=== PATIENT | female | born 1955 | race Two or more races ===

== ENCOUNTER → 2017-01-17 | Outpatient (CLI) | payer BC ==
[~2017-01-17] MED LIST: ASPI-498 PO; GLIP-115 PO; INSUINJ SC; LISI2.5T47 PO; LOVA10TA54 PO; METF-370 PO
[2017-01-17 08:04] LABS: Basophils # (auto) 0.1 uL; Basophils % (auto) 1.3 % (0.0-2.0); CONDITION Y; DEFINITIVE SEE PRINTOUT; Eosinophils # (auto) 0.3 uL; Eosinophils % (auto) 3.9 % (0.0-7.0); Hematocrit 29.3 % (36.0-46.0); Hemoglobin 9.2 g/dL (12.2-16.2); Lymphocytes # (auto) 1.9 uL; Lymphocytes % (auto) 28.3 % (10.0-50.0); Mean Corpuscular Hemoglobin 22.3 pg (28.0-32.0); Mean Corpuscular Hgb Conc. 31.5 g/dL (32.0-36.0); Mean Corpuscular Volume 70.7 fL (80.0-100.0); Mean Platelet Volume 6.8 fL (7.4-10.4); Monocytes # (auto) 0.5 uL; Monocytes % (auto) 7.4 % (0.0-12.0); Neutrophils % (auto) 59.1 % (37.0-80.0); Platelet Count (auto) 652 10^3/uL (140-450); Red Cell Distribution Width 17.7 % (11.6-16.0); White Blood Cell 6.8 10^3/uL (4.4-10.8)
[2017-01-17 08:45] LABS: Urine Bilirubin Negative (Negative); Urine Blood Negative /uL (Negative); Urine Color Yellow (Yellow); Urine Glucose 4+ mg/dL (Normal); Urine Ketone Negative (Negative); Urine Mucus FEW (None Seen); Urine Nitrite Negative (Negative); Urine RBC 1 /hpf (0 - 4); Urine Squamous Epithelial Cell FEW /hpf (<5); Urine Urobilinogen Normal (Negative)
[2017-01-17 08:58] LABS: INR 0.93 (0.9-1.15); Prothrombin Time 10.1 sec (9.37-12.3)
[2017-01-17 09:28] LABS: Albumin 3.4 g/dL (3.4-5.0); BUN/Creatinine Ratio 18.8; Bilirubin, Total 0.4 mg/dL (0.2-1.0); Total Protein 7.5 g/dL (6.4-8.2)
== END | disposition home or self-care (01) ==
LOC: LAB 07:40
PROVIDERS: ATTEND Internal Medicine
DX: E11.319 Type 2 diabetes mellitus with unspecified diabetic retinopathy without macular edema (principal); R04.0 Epistaxis; I11.0 Hypertensive heart disease with heart failure; I50.9 Heart failure, unspecified
CPT/HCPCS: 36415; 80053; 80061; 81001; 82607; 83036; 84439; 84443; 85025; 85610; 85652

== ENCOUNTER → 2017-02-08 | Outpatient (CLI) | payer BC ==
[2017-02-08 16:10] LABS: Basophils # (auto) 0 uL; Basophils % (auto) 0.5 % (0.0-2.0); CONDITION Y; DEFINITIVE SEE PRINTOUT; Eosinophils # (auto) 0.3 uL; Eosinophils % (auto) 3.2 % (0.0-7.0); Hemoglobin 9.4 g/dL (12.2-16.2); Lymphocytes # (auto) 2.6 uL; Lymphocytes % (auto) 29.3 % (10.0-50.0); Mean Corpuscular Hemoglobin 20.7 pg (28.0-32.0); Mean Corpuscular Hgb Conc. 31.2 g/dL (32.0-36.0); Mean Corpuscular Volume 66.5 fL (80.0-100.0); Mean Platelet Volume 7.1 fL (6.9-10.8); Monocytes # (auto) 0.7 uL; Monocytes % (auto) 7.4 % (0.0-12.0); Neutrophils # (auto) 5.3 uL; Neutrophils % (auto) 59.6 % (37.0-80.0); Platelet Count (auto) 566 10^3/uL (140-450); Red Cell Distribution Width 18.8 % (11.8-14.3)
[2017-02-08 16:21] LABS: Anisocytosis Moderate; Hypochromia Marked; Microcytosis Marked; Platelet Estimate Increased
[2017-02-08 16:30] LABS: Glucose 205 mg/dL (74-106)
== END | disposition home or self-care (01) ==
LOC: LAB 15:21
PROVIDERS: ATTEND Internal Medicine
DX: D64.9 Anemia, unspecified (principal); I25.10 Atherosclerotic heart disease of native coronary artery without angina pectoris; E11.9 Type 2 diabetes mellitus without complications; I10 Essential (primary) hypertension
CPT/HCPCS: 36415; 82607; 82947; 83540; 83615; 85025

== ENCOUNTER → 2017-04-23 | Outpatient (CLI) | payer BC | END | disposition home or self-care (01) | LOC: XYW 09:56 | PROVIDERS: ATTEND Internal Medicine | DX: I44.7 Left bundle-branch block, unspecified (principal) ==

== ENCOUNTER → 2017-04-30 | Outpatient (CLI) | payer BC ==
[~2017-04-30] VITALS: Ht 165.1 cm; Wt 85.7 kg
[~2017-04-30] MED LIST changes: +ADENOSINE 72 MG in GIVE UN-DILUTED 0 ML IV ONE
[2017-04-30 10:12] VITALS: BP 165/68
== END | disposition home or self-care (01) ==
LOC: XY 08:06
PROVIDERS: ATTEND Internal Medicine
DX: I44.7 Left bundle-branch block, unspecified (principal)
CPT/HCPCS: 78452; 93017; A9500; J0153

== ENCOUNTER 2019-09-16 15:54 | Inpatient (IN) | payer MEDICARE, MEDICAID ==
[~2019-09-16] VITALS: Ht 167.6 cm; Wt 88.0 kg
[~2019-09-16 15:54] MED LIST changes: -ADENOSINE 72 MG in GIVE UN-DILUTED 0 ML IV ONE; -GLIP-115 PO; +GLIP5TAB12 PO
[2019-09-16 16:58] LABS: Urine WBC None Seen /hpf (0 - 5)
[2019-09-16 17:03] LABS: Basophils # (auto) 0.1 10 ^3/uL (0-0.2); Basophils % (auto) 1.2 % (0.0-2.0); Eosinophils # (auto) 0.2 10 ^3/uL (0-0.8); Eosinophils % (auto) 2.1 % (0.0-7.0); Hematocrit 32.7 % (36.0-46.0); Hemoglobin 10.3 g/dL (12.2-16.2); Lymphocytes % (auto) 18.3 % (10.0-50.0); Mean Corpuscular Hemoglobin 22.2 pg (28.0-32.0); Mean Corpuscular Hgb Conc. 31.4 g/dL (32.0-36.0); Mean Corpuscular Volume 70.7 fL (80.0-100.0); Monocytes # (auto) 0.8 10 ^3/uL (0-1.3); Monocytes % (auto) 7.3 % (0.0-12.0); Neutrophils # (auto) 7.8 10 ^3/uL (1.6-8.6); Neutrophils % (auto) 71.1 % (37.0-80.0); Platelet Count (auto) 590 10^3/uL (140-450); Red Blood Cells 4.63 10^6/uL (4.0-5.20); Red Cell Distribution Width 17.7 % (11.8-14.3)
[2019-09-16 17:07] LABS: Urine Bacteria NONE SEEN /hpf (None Seen); Urine Blood 1+ /uL (Negative); Urine Specific Gravity 1.017 (1.001-1.035)
[2019-09-16 17:25] LABS: Albumin 2.8 g/dL (3.4-5.0); Anion Gap 9 (5-15); Blood Urea Nitrogen 12 mg/dL (7-18); Calcium 8.6 mg/dL (8.5-10.1); Carbon Dioxide 24 mmol/L (21-32); Chloride 97 mmol/L (98-107); Glucose 281 mg/dL (74-106); Potassium 4.5 mmol/L (3.5-5.1); Sodium 130 mmol/L (136-145)
[2019-09-16 17:30] LABS: Alanine Aminotransferase 20 U/L (13-56); Alkaline Phosphatase 127 U/L (45-117); Aspartate Aminotransferase 14 U/L (15-37); BUN/Creatinine Ratio 16.7; Bilirubin, Total 0.5 mg/dL (0.2-1.0); GFR African American 105 mL/min; GFR Non-African American 86 mL/min; Total Protein 7.3 g/dL (6.4-8.2)
[2019-09-16] MEDS ORDERED: MORPHINE SULF INJ 2 MG/ML SYRINGE 1ML IV PRN (18:45)
[2019-09-16] MEDS ORDERED: NITROGLYCERIN 0.4 MG SL TAB SL PRN ×2 (18:45)
[2019-09-16] MEDS ORDERED: HYDROcodone-ACET 5/325MG TAB PO PRN (18:45)
[2019-09-16] MEDS ORDERED: MORPHINE SULFATE 4 MG/ML SYR/VIAL IV PRN (18:45)
[2019-09-16] MEDS ORDERED: FUROSEMIDE 40 MG/4 ML VIAL IV ONE (18:45)
[2019-09-16] MEDS ORDERED: LORazepam 0.5 MG TAB PO PRN (18:45)
[2019-09-16] MEDS ORDERED: ONDANSETRON HCL 4 MG/2 ML VIAL IV PRN (18:45)
[2019-09-16] MEDS ORDERED: DEXTROSE (50%) 50ML SYRG IV PRN (18:45)
[2019-09-16] MEDS ORDERED: FUROSEMIDE 40 MG TAB PO SCH (19:15)
[2019-09-16] MEDS ORDERED: FUROSEMIDE INJECTION 10 ML ONE (21:04)
[2019-09-16] MEDS ORDERED: ATORVASTATIN 20 MG TAB PO SCH (22:00)
[2019-09-16 22:45] VITALS: BP 138/94
[2019-09-16] MEDS: CARVEDILOL 3.125 MG TAB PO SCH (23:08)
[2019-09-16] MEDS: ACCU-CHEK COMFORT CURVE STRIP VI SCH (23:09)
[2019-09-16] MEDS: InsuLIN REG 1unit/0.01ml Soln (100units/ml) SC SCH (23:21)
--- NOTE | 2019-09-16 23:30 | NUR ---
Telemetry admit from ER ALISTAIR CARDOZA admitted to Telemetry unit after SBAR received. Patient oriented to Catherine Loaiza RN primary RN, unit, room, bed, and unit policies regarding patient care and visiting hours. Patient now on continuous telemetry monitoring, tele box # 81 and telemetry reading on arrival to unit is SR. Patient weighed by bedscale and encouraged to call if they need something. All questions and concerns addressed, patient verbalized understanding, will continue to monitor Note: []
[2019-09-17 00:12] VITALS: BP 138/94
[2019-09-17 05:00] VITALS: BP 128/77
[2019-09-17] MEDS: FUROSEMIDE 100 MG/10ML VIAL IV SCH ×2 (05:45→17:50)
[2019-09-17] MEDS: ACCU-CHEK COMFORT CURVE STRIP VI SCH ×4 (05:45→21:55)
[2019-09-17] MEDS ORDERED: FUROSEMIDE 40 MG TAB PO SCH (06:00)
[2019-09-17 06:07] LABS: Basophils # (auto) 0.1 10 ^3/uL (0-0.2); Basophils % (auto) 0.9 % (0.0-2.0); Eosinophils # (auto) 0.2 10 ^3/uL (0-0.8); White Blood Cell 8.1 10^3/uL (4.4-10.8)
[2019-09-17 06:09] LABS: Eosinophils % (auto) 2.8 % (0.0-7.0); Hematocrit 27.9 % (36.0-46.0); Hemoglobin 8.8 g/dL (12.2-16.2); Lymphocytes # (auto) 1.6 10 ^3/uL (0.4-5.4); Lymphocytes % (auto) 19.6 % (10.0-50.0); Mean Corpuscular Hemoglobin 22.3 pg (28.0-32.0); Mean Corpuscular Hgb Conc. 31.7 g/dL (32.0-36.0); Mean Corpuscular Volume 70.2 fL (80.0-100.0); Monocytes # (auto) 0.6 10 ^3/uL (0-1.3); Neutrophils # (auto) 5.7 10 ^3/uL (1.6-8.6); Neutrophils % (auto) 69.7 % (37.0-80.0); Platelet Count (auto) 503 10^3/uL (140-450); Red Blood Cells 3.97 10^6/uL (4.0-5.20); Red Cell Distribution Width 17.8 % (11.8-14.3)
[2019-09-17] MEDS: InsuLIN REG 1unit/0.01ml Soln (100units/ml) SC SCH ×4 (06:27→22:00)
[2019-09-17 06:28] LABS: Albumin 2.3 g/dL (3.4-5.0); Calcium 7.9 mg/dL (8.5-10.1); Magnesium 1.9 mg/dL (1.6-2.6); Potassium 3.7 mmol/L (3.5-5.1)
[2019-09-17 06:29] LABS: % Iron Saturation 4.1 % (15-50)
[2019-09-17 06:34] LABS: BUN/Creatinine Ratio 22.2; Bilirubin, Total 0.8 mg/dL (0.2-1.0); Phosphorus 3.5 mg/dL (2.5-4.90); Total Protein 6.1 g/dL (6.4-8.2)
[2019-09-17] MEDS: CARVEDILOL 3.125 MG TAB PO SCH (08:26)
[2019-09-17] MEDS: DOCUSATE SOD 100 MG CAP PO SCH (08:26)
[2019-09-17] MEDS: ASPirin 81 mg TAB PO SCH (08:27)
[2019-09-17 09:00] VITALS: BP 143/66
--- NOTE | 2019-09-17 09:24 | NUR ---
Markus is alert and oriented times 3. Markus lives in her own home in [place]. Pt has a sister who is available to assist her if she required help. Pt also has a brother who lives with her. He leaves for work in the temperer and does not come back home until 10.00pm. However, she is not responsible for him. Markus is listed as not having any insurance. However, Pt has Medicare A. Recently she applied for [employer] B, However, pt states it will not be in effect until December. Shrub [employer]er spoke with Surjit and he will apply for [employer] for her. Advised pt that additional information regarding D/C Planning would be provided prior to her discharge. Will follow up with Toni regarding the insurance status. Addendum: 09/17/19 at [facility] by GUS VAZQUEZ Amended: Links added.
[2019-09-17] MEDS ORDERED: LISINOPRIL 20 MG TAB PO SCH (10:00)
[2019-09-17] MEDS ORDERED: OPTISON 3ml Vial for INJ IV ONE (11:44)
--- NOTE | 2019-09-17 11:55 | NUR ---
Doctor Niyah jensen.
[2019-09-17] MEDS ORDERED: SODIUM FERR GLUC 62.5MG/5ML 125 MG in SODIUM CHL 0.9% 100 ML IV SCH (12:00)
[2019-09-17] MEDS: IRON SUCROSE COMPLEX 200 MG in SODIUM CHL 0.9% 100 ML IV SCH (12:02)
--- NOTE | 2019-09-17 12:05 | NUR ---
Doctor Gaxiola at bedside.
[2019-09-17] MEDS ORDERED: MULTTAB61 PO (12:23)
[2019-09-17] MEDS ORDERED: POLYETHYLENE GLYCOL 17 GM PWDR PO ONE (12:45)
[2019-09-17 13:00] VITALS: BP 138/67
[2019-09-17] MEDS: PANTOPRAZOLE 40 MG TAB PO SCH ×2 (13:45→22:37)
--- NOTE | 2019-09-17 13:59 | NUR ---
Patient C/O of mild headache requesting Tylenol for pain. Informed Doctor Khalida of request, new orders received, see emr for orders.
[2019-09-17] MEDS ORDERED: ACETAMINOPHEN 325 MG TAB PO PRN (14:00)
[2019-09-17 16:50] VITALS: BP 140/80
[2019-09-17 22:00] VITALS: BP 140/78
[2019-09-17] MEDS: ATORVASTATIN 20 MG TAB PO SCH (22:26)
[2019-09-17] MEDS: CARVEDILOL 12.5 MG TAB PO SCH (22:27)
[2019-09-17] MEDS: INSULIN LANTUS (GLARGINE) 1 /0.01ml (100units/ml) SC SCH (22:28)
--- NOTE | 2019-09-18 03:30 | NUR ---
ASSUMED CARE OF PT SLEEPING.
--- NOTE | 2019-09-18 03:30 | NUR ---
Assumed care. Sleeping.
--- NOTE | 2019-09-18 03:48 | NUR ---
CARE ENDORSED TO BRIGIOD Shelby
[2019-09-18 05:00] VITALS: BP 109/58
[2019-09-18] MEDS: FUROSEMIDE 100 MG/10ML VIAL IV SCH (06:15)
[2019-09-18] MEDS: InsuLIN REG 1unit/0.01ml Soln (100units/ml) SC SCH ×4 (06:43→22:13)
[2019-09-18] MEDS: ACCU-CHEK COMFORT CURVE STRIP VI SCH ×4 (07:00→22:09)
[2019-09-18 07:16] LABS: Basophils # (auto) 0.1 10 ^3/uL (0-0.2); Eosinophils # (auto) 0.3 10 ^3/uL (0-0.8)
[2019-09-18] MEDS: INSULIN LANTUS (GLARGINE) 1 /0.01ml (100units/ml) SC SCH ×2 (07:16→22:12)
[2019-09-18 07:19] LABS: Basophils % (auto) 1.1 % (0.0-2.0); Eosinophils % (auto) 4.7 % (0.0-7.0); Hematocrit 28.3 % (36.0-46.0); Lymphocytes # (auto) 1.6 10 ^3/uL (0.4-5.4); Mean Corpuscular Hemoglobin 22.2 pg (28.0-32.0); Mean Corpuscular Hgb Conc. 31.7 g/dL (32.0-36.0); Monocytes # (auto) 0.5 10 ^3/uL (0-1.3); Monocytes % (auto) 6.6 % (0.0-12.0); Neutrophils # (auto) 4.6 10 ^3/uL (1.6-8.6); Neutrophils % (auto) 64.6 % (37.0-80.0); Nucleated Red Blood Cells % 0.2 %; Platelet Count (auto) 507 10^3/uL (140-450); Red Blood Cells 4.05 10^6/uL (4.0-5.20); Red Cell Distribution Width 17.7 % (11.8-14.3); White Blood Cell 7.1 10^3/uL (4.4-10.8)
[2019-09-18 07:35] LABS: Potassium 4.4 mmol/L (3.5-5.1)
[2019-09-18 07:40] LABS: BUN/Creatinine Ratio 23.5; Calcium 8.3 mg/dL (8.5-10.1); Magnesium 2.2 mg/dL (1.6-2.6)
[2019-09-18 09:00] VITALS: BP 132/66
[2019-09-18] MEDS: ENOXAPARIN SOD 40 MG/0.4 ML SYRINGE SC SCH (10:00)
[2019-09-18] MEDS: CARVEDILOL 12.5 MG TAB PO SCH (10:30)
[2019-09-18] MEDS: PANTOPRAZOLE 40 MG TAB PO SCH (10:30)
[2019-09-18] MEDS: DOCUSATE SOD 100 MG CAP PO SCH (10:30)
[2019-09-18] MEDS: LISINOPRIL 10 MG TAB PO SCH (10:30)
[2019-09-18] MEDS: POLYETHYLENE GLYCOL 17 GM PWDR PO SCH (10:30)
[2019-09-18] MEDS: ASPirin 81 mg TAB PO SCH ×2 (10:30→12:44)
[2019-09-18 13:00] VITALS: BP 111/62
[2019-09-18] MEDS: IRON SUCROSE COMPLEX 200 MG in SODIUM CHL 0.9% 100 ML IV SCH (13:49)
--- NOTE | 2019-09-18 14:00 | NUR ---
DR. POPPY ESTEBAN. MAKES KNOWN PLANS FOR [facility] ON SATURDAY. PT IS AGREEABLE.
--- NOTE | 2019-09-18 15:00 | NUR ---
ASSUMED CARE ASSUMED CARE OF PATIENT AFTER RECEIVING REPORT. PATIENT ORIENTED TO THIS RN AND UPDATED ON POC. WILL CONTINUE TO MONITOR.
[2019-09-18 17:06] VITALS: BP 129/77
--- NOTE | 2019-09-18 19:15 | NUR ---
Opening Shift Note Assumed care of patient, awake and alert. No S/S of distress/SOB or pain. Instructed on POC and to call for assist PRN, will continue to monitor for changes Q1hr and PRN. PATIENT RESTING IN BED, BED IN LOWEST POSITION, SIDE RALES UP X2, CALL LIGHT AND PERSONAL ITEMS WITHIN REACH.
[2019-09-18 20:00] VITALS: BP 130/73
--- NOTE | 2019-09-18 21:27 | NUR ---
IV insertion IV access obtained, via clean sterile technique by inserting 20 gauge catheter at LEFT WRIST after 1 attempt. IV secured properly. No trauma to site. Patient tolerated well. IV removal IV DC'd with clean sterile technique, catheter fully intact. Pressure dressing applied to site. Patient tolerated well. NOTE: OLD IV PAINFUL AND PT DID NOT WANT IT FLUSHED.
[2019-09-18 22:00] VITALS: BP 130/73
[2019-09-18] MEDS: ATORVASTATIN 20 MG TAB PO SCH (22:08)
[2019-09-19 04:54] VITALS: BP 122/71
[2019-09-19 06:35] LABS: Potassium 3.8 mmol/L (3.5-5.1)
[2019-09-19 06:42] LABS: BUN/Creatinine Ratio 26.5; Calcium 8.4 mg/dL (8.5-10.1)
[2019-09-19] MEDS: FUROSEMIDE 100 MG/10ML VIAL IV SCH ×2 (06:43→17:04)
[2019-09-19] MEDS: InsuLIN REG 1unit/0.01ml Soln (100units/ml) SC SCH ×4 (06:43→21:59)
[2019-09-19] MEDS: ACCU-CHEK COMFORT CURVE STRIP VI SCH ×4 (06:44→21:56)
[2019-09-19] MEDS: INSULIN LANTUS (GLARGINE) 1 /0.01ml (100units/ml) SC SCH ×2 (06:47→21:58)
--- NOTE | 2019-09-19 07:20 | NUR ---
Opening Shift Note: Assumed care of patient, awake and alert. No S/S of distress/SOB or pain. Bed in lowest locked position, side rails up x 2, call light within reach. Patient instructed on POC and to call for assist PRN, will continue to monitor for changes Q1hr and PRN.
[2019-09-19 08:40] VITALS: BP 128/70
[2019-09-19] MEDS: ENOXAPARIN SOD 40 MG/0.4 ML SYRINGE SC SCH (09:50)
[2019-09-19] MEDS: IRON SUCROSE COMPLEX 200 MG in SODIUM CHL 0.9% 100 ML IV SCH (11:46)
[2019-09-19 12:40] VITALS: BP 137/79
[2019-09-19 16:43] VITALS: BP 134/68
--- NOTE | 2019-09-19 19:08 | NUR ---
CLOSING NOTE: Patient resting in bed. No S/S of SOB, pain, or distress at this time. Care endorsed to NOC RN.
--- NOTE | 2019-09-19 19:50 | NUR ---
Opening Shift Note Assumed care of patient, awake and alert. No S/S of distress/SOB or pain. Instructed on POC and to call for assist PRN, will continue to monitor for changes Q1hr and PRN. PATIENT CLAM SITTING UP IN BED, FITNESS COACH AT BEDSIDE, BED IN LOWEST POSITION, SIDE RALES UP X2, CALL LIGHT AND CELLPHONE ON TRAY TABLE IN REACH.
[2019-09-19 20:00] VITALS: BP 137/71
[2019-09-19 21:00] VITALS: BP 137/71
[2019-09-19] MEDS: PANTOPRAZOLE 40 MG TAB PO SCH (21:56)
[2019-09-19] MEDS: CARVEDILOL 12.5 MG TAB PO SCH (21:56)
[2019-09-19] MEDS: ATORVASTATIN 20 MG TAB PO SCH (21:56)
[2019-09-20 05:00] VITALS: BP 104/66
[2019-09-20] MEDS: FUROSEMIDE 100 MG/10ML VIAL IV SCH ×2 (06:31→17:26)
[2019-09-20] MEDS: ACCU-CHEK COMFORT CURVE STRIP VI SCH ×4 (06:31→22:06)
[2019-09-20] MEDS: InsuLIN REG 1unit/0.01ml Soln (100units/ml) SC SCH ×4 (06:32→22:15)
[2019-09-20] MEDS: INSULIN LANTUS (GLARGINE) 1 /0.01ml (100units/ml) SC SCH ×2 (06:32→22:00)
[2019-09-20 08:47] VITALS: BP 124/71
[2019-09-20] MEDS: POLYETHYLENE GLYCOL 17 GM PWDR PO SCH (10:00)
[2019-09-20] MEDS: ENOXAPARIN SOD 40 MG/0.4 ML SYRINGE SC SCH (10:00)
[2019-09-20] MEDS: ASPirin 81 mg TAB PO SCH (10:00)
[2019-09-20] MEDS: CARVEDILOL 12.5 MG TAB PO SCH ×2 (10:04→22:02)
[2019-09-20] MEDS: PANTOPRAZOLE 40 MG TAB PO SCH ×2 (10:04→22:02)
[2019-09-20] MEDS: LISINOPRIL 10 MG TAB PO SCH (10:05)
[2019-09-20] MEDS: DOCUSATE SOD 100 MG CAP PO SCH (10:08)
[2019-09-20] MEDS: IRON SUCROSE COMPLEX 200 MG in SODIUM CHL 0.9% 100 ML IV SCH (11:41)
[2019-09-20 13:00] VITALS: BP 120/64
[2019-09-20 16:57] VITALS: BP 125/64
--- NOTE | 2019-09-20 18:33 | NUR ---
IV insertion: IV access obtained, via clean sterile technique by inserting 20 gauge catheter at right forearm after 1 attempt. IV secured properly. No trauma to site. Patient tolerated well. IV removal: left wrist IV DC'd with clean sterile technique, catheter fully intact. Pressure dressing applied to site. Patient tolerated well.
--- NOTE | 2019-09-20 18:51 | NUR ---
Closing note: Patient resting in bed. No S/S of pain, distress or SOB at this time. Care endorsed to NOC RN.
--- NOTE | 2019-09-20 19:10 | NUR ---
Received report from the Day Shift BARBIE Montano. Pt. in bed resting and sleeping. Initial assessment done.
--- NOTE | 2019-09-20 19:47 | NUR ---
Pt. SR @ 68 with BBB @ Tele Box # 81. Pt. denies chest pain and denies any chest discomfort when assessed. Pt. calm and aware of the possible procedure to be done tomorrow, the Left Heart Cath or Angiogram. Need consent to be signed.
--- NOTE | 2019-09-20 20:00 | NUR ---
Pt. in bed resting,calm and quiet. Pt. easily arousable by name, alert, awake, oriented x 4, Mohawk speaking. Pt. in Room Air, nos/s of sob or dyspnea. Breathing regular/even and unlabored. Lungs are clear bilaterally. Pt. denies chest pain or any pain @ this time. Tele # 81 SR with BBB @ the 60's. Abdomen soft, rounded and non-tender. IV access @ the RFA G # 20 which was inserted 09/20/19. Last BM 09/19/19. Pt. adlib, can turn self, independent and ambulatory with BRP with min. assist. Generally skin intact. Pt. for Left heart Cath tomorrow 09/21/19Saturday. Pt. needs consent to be signed for the heart cath tomorrow. NPO post MN. Pt. returned to sleep, siderails up x 2 @ the head of the bed, bed locked in low position and call-light within pt.'s reach.
[2019-09-20 21:00] VITALS: BP 142/66
[2019-09-20] MEDS: ATORVASTATIN 20 MG TAB PO SCH (22:02)
--- NOTE | 2019-09-20 22:02 | NUR ---
Meds. as scheduled given. Pt. made aware of the use and indications of the meds. as scheduled. Pt. verbalized understanding.
--- NOTE | 2019-09-20 22:05 | NUR ---
Accucheck taken and result of BS = 161 @ 2205 Pm.
--- NOTE | 2019-09-20 22:15 | NUR ---
Pt. received 3 units of Regular Human insulin SQ @ [facility] for BS = 161. Pt. made aware of the BS result and verbalized understanding of the Insulin coverage. Pt. refused Lantus due to NPO post MN for Angiogram or Left Heart Cath tomorrow 09/21/2019.
--- NOTE | 2019-09-21 00:30 | NUR ---
Pt. sleeping and calm @ this time. Pt. already on NPO as was instructed to her post MN.
--- NOTE | 2019-09-21 02:00 | NUR ---
Pt. is sleeping undisturbed. Kept on NPO. Siderails up x 2 and bed locked in low position. Call-light @the bedside.
[2019-09-21 05:00] VITALS: BP 107/67
[2019-09-21 05:42] LABS: Basophils # (auto) 0.1 10 ^3/uL (0-0.2); Basophils % (auto) 0.9 % (0.0-2.0); Eosinophils # (auto) 0.3 10 ^3/uL (0-0.8); Eosinophils % (auto) 3.4 % (0.0-7.0); Hematocrit 29.9 % (36.0-46.0); Hemoglobin 9.5 g/dL (12.2-16.2); Lymphocytes # (auto) 1.6 10 ^3/uL (0.4-5.4); Lymphocytes % (auto) 17.3 % (10.0-50.0); Mean Corpuscular Hemoglobin 22.9 pg (28.0-32.0); Mean Corpuscular Hgb Conc. 31.8 g/dL (32.0-36.0); Mean Corpuscular Volume 72.1 fL (80.0-100.0); Monocytes # (auto) 0.7 10 ^3/uL (0-1.3); Monocytes % (auto) 7.4 % (0.0-12.0); Neutrophils # (auto) 6.6 10 ^3/uL (1.6-8.6); Nucleated Red Blood Cells % 0.1 %; Platelet Count (auto) 536 10^3/uL (140-450); Red Blood Cells 4.15 10^6/uL (4.0-5.20); Red Cell Distribution Width 17.8 % (11.8-14.3); White Blood Cell 9.2 10^3/uL (4.4-10.8)
[2019-09-21] MEDS: FUROSEMIDE 100 MG/10ML VIAL IV SCH ×2 (05:45→18:11)
[2019-09-21 05:56] LABS: % Iron Saturation 34.4 % (15-50)
[2019-09-21 05:59] LABS: Potassium 4.3 mmol/L (3.5-5.1)
[2019-09-21 06:04] LABS: Calcium 8.8 mg/dL (8.5-10.1); INR 1.08 (0.9-1.15); Magnesium 2.2 mg/dL (1.6-2.6)
[2019-09-21] MEDS: ACCU-CHEK COMFORT CURVE STRIP VI SCH ×4 (06:09→22:27)
[2019-09-21] MEDS: InsuLIN REG 1unit/0.01ml Soln (100units/ml) SC SCH ×4 (06:09→22:29)
--- NOTE | 2019-09-21 06:09 | NUR ---
Accucheck taken with result of BS = 148 . Pt. is on NPO for Left Heart Cath. or Angiogram today Saturday09/21/2019. This insulin is not given to the pt. due to NPO for procedure today.
[2019-09-21] MEDS: INSULIN LANTUS (GLARGINE) 1 /0.01ml (100units/ml) SC SCH ×2 (06:13→22:28)
--- NOTE | 2019-09-21 07:35 | NUR ---
Opening Shift Note: Received report from NOC RN Assumed care of patient, awake and alert. No S/S of distress/SOB or pain. Bed in lowest locked position, side rails up x 2, call light within reach. Patient instructed on POC and to call for assist PRN, will continue to monitor for changes Q1hr and PRN.
--- NOTE | 2019-09-21 07:46 | NUR ---
Called Client Relationship Consultant regarding patient status. Patient not on schedule at this time. No orders for C.
[2019-09-21 09:00] VITALS: BP 123/66
[2019-09-21] MEDS ORDERED: ADENOSINE 73 MG in GIVE UN-DILUTED 0 ML IV STA (09:24)
--- NOTE | 2019-09-21 09:25 | NUR ---
Patient off unit for stress test.
[2019-09-21] MEDS: ASPirin 81 mg TAB PO SCH (09:55)
[2019-09-21] MEDS: ENOXAPARIN SOD 40 MG/0.4 ML SYRINGE SC SCH (09:55)
[2019-09-21] MEDS: DOCUSATE SOD 100 MG CAP PO SCH (10:00)
[2019-09-21] MEDS: POLYETHYLENE GLYCOL 17 GM PWDR PO SCH (10:00)
[2019-09-21] MEDS: CARVEDILOL 12.5 MG TAB PO SCH ×2 (10:00→22:26)
[2019-09-21] MEDS: PANTOPRAZOLE 40 MG TAB PO SCH ×2 (10:00→22:27)
[2019-09-21] MEDS: LISINOPRIL 10 MG TAB PO SCH (10:00)
[2019-09-21 10:08] VITALS: BP 140/76
--- NOTE | 2019-09-21 11:40 | NUR ---
Patient back to unit.
[2019-09-21] MEDS: IRON SUCROSE COMPLEX 200 MG in SODIUM CHL 0.9% 100 ML IV SCH (12:06)
[2019-09-21 13:00] VITALS: BP 135/80
[2019-09-21] MEDS ORDERED: CANA300T OR (14:48)
[2019-09-21] MEDS ORDERED: METF-372 PO (14:48)
[2019-09-21] MEDS ORDERED: ASPI81CH43 PO (14:48)
[2019-09-21] MEDS ORDERED: ATOR20TA50 PO (14:48)
[2019-09-21] MEDS ORDERED: CAR125T PO (14:48)
[2019-09-21] MEDS ORDERED: SACU1TAB PO (14:48)
--- NOTE | 2019-09-21 16:41 | NUR ---
Patient ambulated in the halls. No distress noted.
[2019-09-21 17:00] VITALS: BP 132/73
[2019-09-21 22:00] VITALS: BP 128/73
[2019-09-21] MEDS: SACUBITRIL-VALSARTAN 24mg/26mg TAB PO SCH (22:26)
[2019-09-21] MEDS: ATORVASTATIN 20 MG TAB PO SCH (22:27)
--- NOTE | 2019-09-21 22:28 | NUR ---
PAIN: Patient states pain level 6/10. appropriate pain medications given. Will continue to monitor.
--- NOTE | 2019-09-22 03:07 | NUR ---
CLOSING NOTE: Patient asleep in bed at this time. No S/S of SOB, pain or distress at this time. Care endorsed
--- NOTE | 2019-09-22 03:30 | NUR ---
PT CARE RESUMED REPORT RECEIVED FROM APOLONIA RN, PT CURRENTLY SITTING UP IN BED, AWAKE, AXOX4, ON RA, NO CURRENT C/O CP, SOB OR ANY OTHER DISCOMFORT, LUNGS CLEAR THROUGHOUT, CALL LIGHT WITHIN REACH, ENCOURAGED TO CALL FOR ASSIST, PT VERBALIZED UNDERSTANDING, CONT CARE
[2019-09-22 05:00] VITALS: BP 94/55
[2019-09-22] MEDS: ACCU-CHEK COMFORT CURVE STRIP VI SCH ×4 (06:05→21:37)
[2019-09-22] MEDS: InsuLIN REG 1unit/0.01ml Soln (100units/ml) SC SCH ×4 (06:05→21:38)
[2019-09-22] MEDS: FUROSEMIDE 100 MG/10ML VIAL IV SCH ×2 (06:13→18:15)
[2019-09-22] MEDS: INSULIN LANTUS (GLARGINE) 1 /0.01ml (100units/ml) SC SCH ×2 (06:17→21:38)
--- NOTE | 2019-09-22 08:00 | NUR ---
Opening note Assumed care of patient. Patient alert and orientated x4. No SOB or distress noted at this time. POC discussed. No questions at this time. Will continue to monitor.
[2019-09-22 09:16] VITALS: BP 121/60
[2019-09-22] MEDS ORDERED: GOLYTELY 4L KIT PO ONE (09:30)
[2019-09-22] MEDS: ENOXAPARIN SOD 40 MG/0.4 ML SYRINGE SC SCH (10:00)
[2019-09-22] MEDS: SACUBITRIL-VALSARTAN 24mg/26mg TAB PO SCH ×2 (11:06→21:35)
[2019-09-22] MEDS: POLYETHYLENE GLYCOL 17 GM PWDR PO SCH (11:07)
[2019-09-22] MEDS: ASPirin 81 mg TAB PO SCH (11:08)
[2019-09-22] MEDS: PANTOPRAZOLE 40 MG TAB PO SCH ×2 (11:08→21:35)
[2019-09-22] MEDS: DOCUSATE SOD 100 MG CAP PO SCH (11:10)
[2019-09-22] MEDS: CARVEDILOL 12.5 MG TAB PO SCH ×2 (11:10→21:39)
[2019-09-22 13:00] VITALS: BP 152/86
[2019-09-22] MEDS: IRON SUCROSE COMPLEX 200 MG in SODIUM CHL 0.9% 100 ML IV SCH (13:25)
[2019-09-22 17:00] VITALS: BP 119/70
[2019-09-22] MEDS: ATORVASTATIN 20 MG TAB PO SCH (21:35)
[2019-09-22 22:00] VITALS: BP 138/73
[2019-09-23 05:00] VITALS: BP 137/65
[2019-09-23] MEDS: INSULIN LANTUS (GLARGINE) 1 /0.01ml (100units/ml) SC SCH ×2 (05:37→21:34)
[2019-09-23] MEDS: ACCU-CHEK COMFORT CURVE STRIP VI SCH ×4 (05:37→21:34)
[2019-09-23] MEDS: InsuLIN REG 1unit/0.01ml Soln (100units/ml) SC SCH ×4 (05:37→21:33)
[2019-09-23] MEDS: FUROSEMIDE 100 MG/10ML VIAL IV SCH ×2 (05:39→17:50)
[2019-09-23 06:07] LABS: Basophils # (auto) 0.1 10 ^3/uL (0-0.2); Eosinophils # (auto) 0.2 10 ^3/uL (0-0.8); Eosinophils % (auto) 3.2 % (0.0-7.0); Hematocrit 32.4 % (36.0-46.0); Hemoglobin 10.4 g/dL (12.2-16.2); Lymphocytes # (auto) 1.9 10 ^3/uL (0.4-5.4); Lymphocytes % (auto) 23.7 % (10.0-50.0); Mean Corpuscular Hemoglobin 23.5 pg (28.0-32.0); Mean Corpuscular Hgb Conc. 32.2 g/dL (32.0-36.0); Mean Corpuscular Volume 73.2 fL (80.0-100.0); Monocytes # (auto) 0.5 10 ^3/uL (0-1.3); Monocytes % (auto) 6.4 % (0.0-12.0); Neutrophils # (auto) 5.2 10 ^3/uL (1.6-8.6); Neutrophils % (auto) 65.7 % (37.0-80.0); Platelet Count (auto) 527 10^3/uL (140-450); Red Blood Cells 4.42 10^6/uL (4.0-5.20); Red Cell Distribution Width 18.9 % (11.8-14.3); White Blood Cell 7.9 10^3/uL (4.4-10.8)
[2019-09-23 06:23] LABS: Calcium 8.3 mg/dL (8.5-10.1); Potassium 3.1 mmol/L (3.5-5.1)
[2019-09-23 06:24] LABS: Urine Bacteria NONE SEEN /hpf (None Seen); Urine Blood Negative /uL (Negative); Urine Specific Gravity 1.005 (1.001-1.035); Urine WBC 1 /hpf (0 - 5)
[2019-09-23 06:35] LABS: INR 1.13 (0.9-1.15); Partial Thromboplastin Time 33.3 sec (23.64-32.05)
--- NOTE | 2019-09-23 08:00 | NUR ---
Opening note Assumed care of patient. Bed in lowest position and locked. Side rails up x2. Patient alert and orientated x4. No pain or distress noted at this time. POC discussed. No questions at this time. Will continue to monitor.
[2019-09-23 09:00] VITALS: BP 151/68
[2019-09-23] MEDS: CARVEDILOL 12.5 MG TAB PO SCH ×2 (09:02→21:36)
[2019-09-23] MEDS: SACUBITRIL-VALSARTAN 24mg/26mg TAB PO SCH ×2 (09:02→21:35)
--- NOTE | 2019-09-23 09:10 | NUR ---
Patient at OR Patient at OR. No distress or SOB noted. Gave report to Alexa. Will continue to monitor when back on unit.
[2019-09-23] MEDS ORDERED: POTASSIUM CHL 20MEQ/100ML 100 ML IV ONE ×2 (09:15→09:17)
[2019-09-23] MEDS ORDERED: MORPHINE SULFATE 4 MG/ML SYR/VIAL IV PRN (10:00)
[2019-09-23] MEDS ORDERED: ePHEDrine SULFATE 50 MG/ML AMP IV PRN (10:00)
[2019-09-23] MEDS ORDERED: LABETALOL HCL 5 MG/ML 4ML SYRINGE IV PRN (10:00)
[2019-09-23] MEDS ORDERED: ACCU-CHEK COMFORT CURVE STRIP VI ONE (10:00)
[2019-09-23] MEDS ORDERED: MIDAZOLAM HCL 1MG/1ML-2 ML VIAL IV PRN (10:00)
[2019-09-23] MEDS ORDERED: ONDANSETRON HCL 4 MG/2 ML VIAL IV PRN (10:00)
[2019-09-23] MEDS ORDERED: MIDAZOLAM HCL 1MG/1ML-2 ML VIAL ONE (10:20)
[2019-09-23] MEDS ORDERED: fentaNYL CITRATE 100 MCG/2 ML VL ONE (10:20)
[2019-09-23] MEDS ORDERED: DexAMETHasone SOD PHOS 10MG/1ML VIAL INJ ONE (10:48)
[2019-09-23] MEDS ORDERED: PROPOFOL 10 MG/ML 20 ML IV ONE (10:48)
--- NOTE | 2019-09-23 11:13 | NUR ---
Spoke to Luzmaria with [employer] phone [phone]. She states to call her if patient will be discharge today.
--- NOTE | 2019-09-23 11:30 | NUR ---
Patient back on unit Patient back on the unit. Vital signs 132/69 HR 53 97% oxygen on room air 16 RR. Patient states no pain, distress or SOB noted at this time. Will medicate per morning medication orders. Will continue to monitor.
[2019-09-23] MEDS: DOCUSATE SOD 100 MG CAP PO SCH (12:16)
[2019-09-23] MEDS: ASPirin 81 mg TAB PO SCH (12:16)
[2019-09-23] MEDS: PANTOPRAZOLE 40 MG TAB PO SCH ×2 (12:16→21:36)
[2019-09-23] MEDS: POLYETHYLENE GLYCOL 17 GM PWDR PO SCH (12:21)
[2019-09-23] MEDS: IRON SUCROSE COMPLEX 200 MG in SODIUM CHL 0.9% 100 ML IV SCH (12:44)
[2019-09-23 13:00] VITALS: BP 133/60
[2019-09-23] MEDS ORDERED: POLYETHYLENE GLYCOL 17 GM PWDR PO PRN (13:00)
--- NOTE | 2019-09-23 13:31 | NUR ---
Regarding Invokajoyce spoke to Suki with Dr Gaxiola's office regarding coupon for Invokana. She states she will find out from Vendor and will call this rn back. This rn attempted to call Luzmaria with [email or web address] for fitting but no answer, unable to leave voicemail due to voicemail is full. Will try again later.
[2019-09-23] MEDS ORDERED: POTASSIUM CHL 20 Meq TABLET PO ONE (14:15)
--- NOTE | 2019-09-23 14:56 | NUR ---
Regarding Invokana spoke to Pharmacist at [facility] and she states Invokana 30 day supply as ordered by MD Gaxiola is now available for order picker/assembler upon discharge. Patient notified. Awaiting [employer] fitting for dc
--- NOTE | 2019-09-23 15:50 | NUR ---
Attempted to contact [employer]. No answer at this time, voicemail left requesting call back.
--- NOTE | 2019-09-23 16:40 | NUR ---
DC Held for today Spoke to Christine Dutta and she states fitting won't happen until [id number] tonprabhu. MD Gaxiola aware and dc held until tomorrow morning at 0700. Patient aware and verbalized understanding. New prescription medications obtained from [facility] and placed in patient cassette including Invokana. Will cont care
[2019-09-23 16:47] VITALS: BP 150/76
--- NOTE | 2019-09-23 19:15 | NUR ---
Patient care endorsed endorsed care to Steven rn. Patient sitting up in bed no acute distress or sob. Call light within reach. Prescription medications delivered by [facility] given to RN Steven to give to patient on discharge in the a.m.
[2019-09-23] MEDS: ATORVASTATIN 20 MG TAB PO SCH (21:35)
[2019-09-23 22:00] VITALS: BP 149/82
--- NOTE | 2019-09-23 23:00 | NUR ---
Life vest rep fitted patient with device and educated patient on life vest. Patient verbally states "She educated me on life vest and I know what to do". Will continue to monitor patient.
[2019-09-24 04:30] VITALS: BP 132/63
[2019-09-24] MEDS: InsuLIN REG 1unit/0.01ml Soln (100units/ml) SC SCH (05:44)
[2019-09-24] MEDS: INSULIN LANTUS (GLARGINE) 1 /0.01ml (100units/ml) SC SCH (05:45)
[2019-09-24] MEDS: ACCU-CHEK COMFORT CURVE STRIP VI SCH (05:48)
[2019-09-24] MEDS: FUROSEMIDE 100 MG/10ML VIAL IV SCH (05:50)
[2019-09-24 06:10] LABS: Potassium 3.5 mmol/L (3.5-5.1)
[2019-09-24 06:22] LABS: BUN/Creatinine Ratio 17.6; Calcium 7.8 mg/dL (8.5-10.1); Magnesium 1.9 mg/dL (1.6-2.6)
--- NOTE | 2019-09-24 07:20 | NUR ---
Provided report to day rn Kayley. notified Kayley patient having questions that requires answers from electrician helper automotive or MD about zolle vest. Patient notified me of zolle rep could not answer one question. Also provided medications prescriptions to Kayley, and notified of patient is pending discharge.
--- NOTE | 2019-09-24 07:30 | NUR ---
Opening Note Assumed patient care from HARDIK RN.
--- NOTE | 2019-09-24 07:48 | NUR ---
Ayala Lira regarding patient requesting to speak with plycor operator regarding wearable defibrillator.
--- NOTE | 2019-09-24 07:50 | NUR ---
Spoke with Spoke with Dr. Simms. MD aware patient would like to speak with her.
--- NOTE | 2019-09-24 08:39 | NUR ---
Called Mariaelena Spoke with Mariaelena Apodaca Notified of MD request for service.
--- NOTE | 2019-09-24 08:45 | NUR ---
at bedside Dr. Simms at bedside discussing plan of care with patient and discussing patient questions regarding heart health and wearable defibrillator.
--- NOTE | 2019-09-24 08:45 | NUR ---
New orders Per Dr. Simms, call Mariaelena Navarrete regarding setting up patient with PCP and stunt double. Will carry out.
[2019-09-24 09:35] VITALS: BP 125/61
[2019-09-24] MEDS: PANTOPRAZOLE 40 MG TAB PO SCH (10:27)
[2019-09-24] MEDS: DOCUSATE SOD 100 MG CAP PO SCH (10:28)
[2019-09-24] MEDS: ASPirin 81 mg TAB PO SCH (10:28)
[2019-09-24] MEDS: CARVEDILOL 12.5 MG TAB PO SCH (10:28)
[2019-09-24] MEDS: SACUBITRIL-VALSARTAN 24mg/26mg TAB PO SCH (10:28)
[2019-09-24 11:55] VITALS: BP 125/61
--- NOTE | 2019-09-24 12:13 | NUR ---
Mariaelena at bedside Mariaelena at bedside discussing patient plan, answering all questions.
[2019-09-24 13:05] VITALS: BP 125/61
--- NOTE | 2019-09-24 13:10 | NUR ---
Tele Box Tele Box returned to ICU.
--- NOTE | 2019-09-24 13:53 | NUR ---
Discharge Discharge instructions given as ordered. Encourage to follow up with PMD as instructed. All questions and concerns addressed. Patient verbalized understanding. Medication reconciliation form completed and copy given to patient. Home medications held in Pharmacy returned to patient. IV removed with catheter intact, pressure dressing applied. Telemetry unit returned to ICU. Patient ambulated to vehicle accompanied by staff and family member. No distress noted at time of departure.
[2019-09-24 14:09] VITALS: BP 111/63
== END 2019-09-24 13:53 | disposition home or self-care (01) | DRG 291 ==
LOC: ER 15:54 → TELE 15:55 → TELE-WESTW 22:05
PROVIDERS: ADMIT Hospitalist; ATTEND Internal Medicine
PROC: 0DJD8ZZ Inspection of Lower Intestinal Tract, Via Natural or Artificial Opening Endoscopic (ICD-10-PCS; principal; 2019-09-23 10:05)
PROC: 0DJ08ZZ Inspection of Upper Intestinal Tract, Via Natural or Artificial Opening Endoscopic (ICD-10-PCS; 2019-09-23 10:05)
DX: I11.0 Hypertensive heart disease with heart failure (principal); J81.0 Acute pulmonary edema; E87.1 Hypo-osmolality and hyponatremia; E44.0 Moderate protein-calorie malnutrition; I50.43 Acute on chronic combined systolic (congestive) and diastolic (congestive) heart failure; D50.9 Iron deficiency anemia, unspecified; I44.7 Left bundle-branch block, unspecified; I25.5 Ischemic cardiomyopathy; E66.9 Obesity, unspecified; I16.0 Hypertensive urgency; E78.5 Hyperlipidemia, unspecified; Z91.19 Patient's noncompliance with other medical treatment and regimen; K44.9 Diaphragmatic hernia without obstruction or gangrene; K64.8 Other hemorrhoids; I25.10 Atherosclerotic heart disease of native coronary artery without angina pectoris; E11.65 Type 2 diabetes mellitus with hyperglycemia; Z79.899 Other long term (current) drug therapy; Z79.84 Long term (current) use of oral hypoglycemic drugs; Z79.4 Long term (current) use of insulin; Z79.82 Long term (current) use of aspirin; Z82.49 Family history of ischemic heart disease and other diseases of the circulatory system; Z83.3 Family history of diabetes mellitus; Z68.30 Body mass index [BMI] 30.0-30.9, adult
CPT/HCPCS: 36415; 43235; 45378; 71045; 71046; 78452; 80048; 80053; 80061; 81001; 82270; 82728; 82962; 83036; 83540; 83550; 83615; 83735; 83880; 83970; 84100; 84484; 85025; 85045; 85379; 85610; 85652; 85730; 86141; 86431; 93005; 93017; 93306; 96374; G0378; J0153; J1100; J1756; J1815; J2250; J2704; J3480; Q9956

== ENCOUNTER 2019-12-03 13:28 | Emergency (ER) | payer MEDICARE, MEDICAID ==
[~2019-12-03] VITALS: Ht 167.6 cm; Wt 80.7 kg
[~2019-12-03 13:28] MED LIST changes: -ASPI-498 PO; +ASPI81CH43 PO; +ATOR20TA50 PO; +CANA300T OR; +CAR125T PO; -GLIP5TAB12 PO; -INSUINJ SC; -LISI2.5T47 PO; -LOVA10TA54 PO; -METF-370 PO; +METF-372 PO; +SACU1TAB PO
[2019-12-03 14:40] LABS: Basophils # (auto) 0.1 10 ^3/uL (0-0.2); Basophils % (auto) 0.7 % (0.0-2.0); Eosinophils # (auto) 0.5 10 ^3/uL (0-0.8); Hematocrit 39.7 % (36.0-46.0); Hemoglobin 13.6 g/dL (12.2-16.2); Lymphocytes # (auto) 1.7 10 ^3/uL (0.4-5.4); Lymphocytes % (auto) 15.2 % (10.0-50.0); Mean Corpuscular Hemoglobin 27.3 pg (28.0-32.0); Mean Corpuscular Hgb Conc. 34.3 g/dL (32.0-36.0); Mean Corpuscular Volume 79.4 fL (80.0-100.0); Monocytes # (auto) 0.6 10 ^3/uL (0-1.3); Monocytes % (auto) 5.2 % (0.0-12.0); Neutrophils # (auto) 8.5 10 ^3/uL (1.6-8.6); Neutrophils % (auto) 74.9 % (37.0-80.0); Platelet Count (auto) 412 10^3/uL (140-450); White Blood Cell 11.4 10^3/uL (4.4-10.8)
[2019-12-03 14:41] LABS: Red Cell Distribution Width 28.2 % (11.8-14.3)
[2019-12-03 14:50] LABS: INR 0.99 (0.9-1.15); Partial Thromboplastin Time 30.3 sec (23.64-32.05)
[2019-12-03 14:59] LABS: Albumin 3.3 g/dL (3.4-5.0); Calcium 9.1 mg/dL (8.5-10.1); Potassium 4.3 mmol/L (3.5-5.1)
[2019-12-03 15:02] LABS: BUN/Creatinine Ratio 22.7; Bilirubin, Total 0.4 mg/dL (0.2-1.0); Total Protein 7.9 g/dL (6.4-8.2)
[2019-12-03 18:24] VITALS: BP 162/80
== END 2019-12-03 18:32 | disposition home or self-care (01) ==
LOC: ER 13:28
DX: R04.0 Epistaxis (principal); I11.0 Hypertensive heart disease with heart failure; I50.9 Heart failure, unspecified; E11.9 Type 2 diabetes mellitus without complications; Z79.899 Other long term (current) drug therapy
CPT/HCPCS: 36415; 80053; 85025; 85610; 85730

== ENCOUNTER 2019-12-04 09:01 | Emergency (ER) | payer MEDICARE, MEDICAID ==
[~2019-12-04] VITALS: Ht 165.1 cm; Wt 78.9 kg
[2019-12-04 09:32] VITALS: BP 178/79
== END 2019-12-04 10:07 | disposition home or self-care (01) ==
LOC: ER 09:01
DX: Z48.01 Encounter for change or removal of surgical wound dressing (principal); I11.0 Hypertensive heart disease with heart failure; I50.9 Heart failure, unspecified; I25.10 Atherosclerotic heart disease of native coronary artery without angina pectoris; E78.5 Hyperlipidemia, unspecified; E11.9 Type 2 diabetes mellitus without complications

== ENCOUNTER → 2020-01-15 | Outpatient (CLI) | payer MEDICARE, MEDICAID | END | disposition home or self-care (01) | LOC: XYW 07:38 | PROVIDERS: ATTEND Internal Medicine | DX: I35.8 Other nonrheumatic aortic valve disorders (principal); I42.9 Cardiomyopathy, unspecified; I51.7 Cardiomegaly | CPT/HCPCS: 93306 ==

== ENCOUNTER → 2020-03-02 | Outpatient (CLI) | payer OTHER ==
[2020-03-02 11:11] LABS: Urine Bacteria NONE SEEN /hpf (None Seen); Urine Blood TRACE /uL (Negative); Urine Hyaline Cast FEW /lpf (0 - 2); Urine Specific Gravity 1.011 (1.001-1.035); Urine WBC 1 /hpf (0 - 5)
[2020-03-02 11:15] LABS: Cholesterol 218 mg/dL (< 200); HDL Cholesterol 55 mg/dL (40-59); LDL Cholesterol 131 mg/dL (< 100); Triglycerides 282 mg/dL (< 150)
== END | disposition home or self-care (01) ==
LOC: LAB 10:06
PROVIDERS: ATTEND Internal Medicine
DX: E11.21 Type 2 diabetes mellitus with diabetic nephropathy (principal); I42.9 Cardiomyopathy, unspecified; R04.0 Epistaxis
CPT/HCPCS: 36415; 80061; 81001; 83036; 87086

== ENCOUNTER → 2020-07-27 | Outpatient (CLI) | payer OTHER ==
[2020-07-27 10:16] LABS: Basophils # (auto) 0.1 10 ^3/uL (0-0.2); Eosinophils # (auto) 0.4 10 ^3/uL (0-0.8); Hemoglobin 11.1 g/dL (12.2-16.2); Lymphocytes # (auto) 1.5 10 ^3/uL (0.4-5.4); Monocytes # (auto) 0.6 10 ^3/uL (0-1.3); Nucleated Red Blood Cells % 0.1 %
[2020-07-27 10:18] LABS: Basophils % (auto) 0.6 % (0.0-2.0); Eosinophils % (auto) 4.5 % (0.0-7.0); Hematocrit 31.5 % (36.0-46.0); Lymphocytes % (auto) 16.6 % (10.0-50.0); Mean Corpuscular Hemoglobin 30.3 pg (28.0-32.0); Mean Corpuscular Hgb Conc. 35.1 g/dL (32.0-36.0); Mean Corpuscular Volume 86.2 fL (80.0-100.0); Monocytes % (auto) 6.1 % (0.0-12.0); Neutrophils # (auto) 6.7 10 ^3/uL (1.6-8.6); Neutrophils % (auto) 72.2 % (37.0-80.0); Red Blood Cells 3.66 10^6/uL (4.0-5.20); Red Cell Distribution Width 14.4 % (11.8-14.3); White Blood Cell 9.3 10^3/uL (4.4-10.8)
[2020-07-27 10:23] LABS: Urine Bacteria NONE SEEN /hpf (None Seen); Urine Blood 1+ /uL (Negative); Urine Hyaline Cast FEW /lpf (0 - 2); Urine Specific Gravity 1.015 (1.001-1.035); Urine WBC 5 /hpf (0 - 5)
[2020-07-27 10:39] LABS: Albumin 2.7 g/dL (3.4-5.0); Calcium 8.3 mg/dL (8.5-10.1); Potassium 4.7 mmol/L (3.5-5.1)
[2020-07-27 10:47] LABS: BUN/Creatinine Ratio 26.1; Bilirubin, Total 0.5 mg/dL (0.2-1.0); Total Protein 6.9 g/dL (6.4-8.2)
[2020-07-27 10:58] LABS: Platelet Count (auto) 502 10^3/uL (140-450)
[2020-07-27 11:04] LABS: Free T4 (Free Thyroxine) 0.97 ng/dL (0.89-1.76)
== END | disposition home or self-care (01) ==
LOC: LAB 09:50
PROVIDERS: ATTEND Internal Medicine
DX: E11.9 Type 2 diabetes mellitus without complications (principal); I10 Essential (primary) hypertension; E78.5 Hyperlipidemia, unspecified
CPT/HCPCS: 36415; 80053; 80061; 81001; 82043; 82607; 83036; 84439; 84443; 85025; 85652

== ENCOUNTER 2021-07-11 16:20 | Inpatient (IN) | payer OTHER ==
[~2021-07-11] VITALS: Ht 165.1 cm; Wt 86.0 kg
[2021-07-11 17:14] LABS: Basophils # (auto) 0.1 10 ^3/uL (0-0.2); Eosinophils # (auto) 0.2 10 ^3/uL (0-0.8); Eosinophils % (auto) 1.6 % (0.0-7.0); Monocytes # (auto) 0.4 10 ^3/uL (0-1.3)
[2021-07-11 17:25] LABS: Basophils % (auto) 0.6 % (0.0-2.0); Hematocrit 19.8 % (36.0-46.0); Lymphocytes # (auto) 1.2 10 ^3/uL (0.4-5.4); Mean Corpuscular Hemoglobin 21.1 pg (28.0-32.0); Mean Corpuscular Hgb Conc. 31.4 g/dL (32.0-36.0); Mean Corpuscular Volume 67.3 fL (80.0-100.0); Monocytes % (auto) 3.8 % (0.0-12.0); Neutrophils # (auto) 9.9 10 ^3/uL (1.6-8.6); Red Blood Cells 2.94 10^6/uL (4.0-5.20); Red Cell Distribution Width 18.4 % (11.8-14.3); White Blood Cell 11.8 10^3/uL (4.4-10.8)
[2021-07-11 17:28] LABS: Hemoglobin 6.2 g/dL (12.2-16.2)
[2021-07-11 17:40] LABS: Albumin 2.7 g/dL (3.4-5.0); Calcium 8.4 mg/dL (8.5-10.1); Potassium 3.9 mmol/L (3.5-5.1)
[2021-07-11 17:45] LABS: Bilirubin, Total 0.5 mg/dL (0.2-1.0); Total Protein 6.8 g/dL (6.4-8.2)
[2021-07-11 19:07] LABS: INR 0.98 (0.9-1.15); Partial Thromboplastin Time 25.6 sec (23.6-33.0)
[2021-07-11 21:09] VITALS: BP 173/62
[2021-07-11] MEDS ORDERED: DEXTROSE (50%) 50ML SYRG IV PRN (21:15)
[2021-07-11] MEDS ORDERED: ONDANSETRON HCL 4 MG/2 ML VIAL IV PRN (21:15)
[2021-07-11] MEDS ORDERED: ACETAMINOPHEN 325 MG TAB PO PRN (21:15)
[2021-07-11 21:25] VITALS: BP 155/66
[2021-07-11 21:30] VITALS: BP 159/51
[2021-07-11 21:35] VITALS: BP 165/64
[2021-07-11 22:00] VITALS: BP 170/66
[2021-07-11] MEDS ORDERED: InsuLIN REG 1unit/0.01ml Soln (100units/ml) SC SCH (22:00)
[2021-07-11] MEDS ORDERED: ATORVASTATIN 20 MG TAB PO SCH (22:00)
[2021-07-11 22:45] VITALS: BP 170/65
[2021-07-11] MEDS ORDERED: hydrALAZINE HCL 20 MG/ML VL IV PRN (22:45)
[2021-07-11] MEDS: CARVEDILOL 12.5 MG TAB PO SCH (23:32)
[2021-07-11] MEDS: SACUBITRIL-VALSARTAN 24mg/26mg TAB PO SCH (23:33)
[2021-07-11] MEDS: ACCU-CHEK COMFORT CURVE STRIP VI SCH (23:36)
[2021-07-11] MEDS: SODIUM CHLORIDE 0.9% 1,000 ML IV SCH (23:38)
[2021-07-11 23:42] LABS: Hematocrit 20.8 % (36.0-46.0)
[2021-07-11 23:53] LABS: Hemoglobin 6.6 g/dL (12.2-16.2)
[2021-07-12] VITALS (12 sets, daily range): BP systolic 145–179; BP diastolic 57–75
[2021-07-12 05:41] LABS: Albumin 2.1 g/dL (3.4-5.0); Calcium 7.4 mg/dL (8.5-10.1); Potassium 3.5 mmol/L (3.5-5.1)
[2021-07-12 05:45] LABS: BUN/Creatinine Ratio 22.4; Basophils # (auto) 0.1 10 ^3/uL (0-0.2); Bilirubin, Total 0.5 mg/dL (0.2-1.0); Hematocrit 23.6 % (36.0-46.0); Hemoglobin 7.6 g/dL (12.2-16.2); Mean Corpuscular Hgb Conc. 32.1 g/dL (32.0-36.0); Nucleated Red Blood Cells % 0.3 %; Total Protein 5.7 g/dL (6.4-8.2)
[2021-07-12 05:47] LABS: Basophils % (auto) 0.8 % (0.0-2.0); Eosinophils # (auto) 0.3 10 ^3/uL (0-0.8); Eosinophils % (auto) 3.2 % (0.0-7.0); Lymphocytes # (auto) 1.2 10 ^3/uL (0.4-5.4); Mean Corpuscular Hemoglobin 23.5 pg (28.0-32.0); Monocytes # (auto) 0.7 10 ^3/uL (0-1.3); Monocytes % (auto) 6.3 % (0.0-12.0); Neutrophils % (auto) 77.7 % (37.0-80.0); Red Blood Cells 3.23 10^6/uL (4.0-5.20); White Blood Cell 10.3 10^3/uL (4.4-10.8)
[2021-07-12 05:48] LABS: Red Cell Distribution Width 22.9 % (11.8-14.3)
[2021-07-12] MEDS ORDERED: AMLO-489 PO (06:24)
[2021-07-12] MEDS ORDERED: HYDR25TA5 GT (06:24)
[2021-07-12] MEDS ORDERED: GLIP10TA9 PO (06:24)
[2021-07-12] MEDS ORDERED: LOSA-39 PO (06:24)
[2021-07-12] MEDS ORDERED: SIMV-13 PO (06:24)
[2021-07-12] MEDS ORDERED: METO1TAB9 PO (06:24)
[2021-07-12] MEDS: ACCU-CHEK COMFORT CURVE STRIP VI SCH ×3 (06:35→17:00)
[2021-07-12] MEDS: InsuLIN REG 1unit/0.01ml Soln (100units/ml) SC SCH ×3 (06:36→17:00)
[2021-07-12] MEDS ORDERED: CANAGLIFLOZIN 150 MG PO SCH (08:00)
[2021-07-12 09:50] LABS: Hemoglobin 7.8 g/dL (12.2-16.2)
[2021-07-12 09:52] LABS: Hematocrit 23.9 % (36.0-46.0)
[2021-07-12] MEDS ORDERED: FAMOTIDINE 20 MG TAB PO SCH (10:00)
[2021-07-12] MEDS: SACUBITRIL-VALSARTAN 24mg/26mg TAB PO SCH (10:00)
[2021-07-12] MEDS: CARVEDILOL 12.5 MG TAB PO SCH (10:00)
[2021-07-12] MEDS: SODIUM CHLORIDE 0.9% 1,000 ML IV SCH (13:55)
[2021-07-12 15:17] LABS: Hematocrit 26.2 % (36.0-46.0); Hemoglobin 8.7 g/dL (12.2-16.2)
== END 2021-07-12 19:55 | disposition home or self-care (01) | DRG 812 ==
LOC: ER 16:20 → OVERFLOW 21:00 → WEST WING 07-12 02:38
PROVIDERS: ADMIT Internal Medicine; ATTEND Internal Medicine
PROC: 30233N1 Transfusion of Nonautologous Red Blood Cells into Peripheral Vein, Percutaneous Approach (ICD-10-PCS; principal; 2021-07-11)
DX: D64.9 Anemia, unspecified (principal); E87.1 Hypo-osmolality and hyponatremia; R04.0 Epistaxis; E11.65 Type 2 diabetes mellitus with hyperglycemia; I25.10 Atherosclerotic heart disease of native coronary artery without angina pectoris; I11.0 Hypertensive heart disease with heart failure; I50.9 Heart failure, unspecified; E66.9 Obesity, unspecified; Z20.822 Contact with and (suspected) exposure to COVID-19; E78.5 Hyperlipidemia, unspecified; R53.81 Other malaise; Z68.31 Body mass index [BMI] 31.0-31.9, adult; Z82.49 Family history of ischemic heart disease and other diseases of the circulatory system; Z83.3 Family history of diabetes mellitus
CPT/HCPCS: 36415; 36430; 70450; 70551; 80053; 82962; 83036; 85014; 85018; 85025; 85610; 85730; 86850; 86900; 86901; 86920; 87426; 93005; 96372; 96374; G0378; J1815

== ENCOUNTER → 2021-07-14 | Outpatient (CLI) | payer OTHER ==
[~2021-07-14] MED LIST changes: +AMLO-489 PO; +GLIP10TA9 PO; +HYDR25TA5 GT; +LOSA-39 PO; +METO1TAB9 PO; +SIMV-13 PO
[2021-07-14 10:05] LABS: Urine Bacteria FEW /hpf (None Seen); Urine Blood Negative /uL (Negative); Urine Hyaline Cast FEW /lpf (0 - 2); Urine Specific Gravity 1.009 (1.001-1.035); Urine WBC 2 /hpf (0 - 5)
[2021-07-14 10:53] LABS: Basophils # (auto) 0.1 10 ^3/uL (0-0.2); Eosinophils # (auto) 0.5 10 ^3/uL (0-0.8); Eosinophils % (auto) 5.7 % (0.0-7.0); Hemoglobin 8.9 g/dL (12.2-16.2); Lymphocytes # (auto) 1.1 10 ^3/uL (0.4-5.4); Lymphocytes % (auto) 11.8 % (10.0-50.0); Mean Corpuscular Hemoglobin 24.1 pg (28.0-32.0); Mean Corpuscular Hgb Conc. 32.8 g/dL (32.0-36.0); Mean Corpuscular Volume 73.4 fL (80.0-100.0); Monocytes # (auto) 0.5 10 ^3/uL (0-1.3); Monocytes % (auto) 5.9 % (0.0-12.0); Neutrophils % (auto) 75.6 % (37.0-80.0); Nucleated Red Blood Cells % 0.1 %; Red Blood Cells 3.68 10^6/uL (4.0-5.20); Red Cell Distribution Width 22.2 % (11.8-14.3); White Blood Cell 9.2 10^3/uL (4.4-10.8)
[2021-07-14 10:58] LABS: Potassium 4.2 mmol/L (3.5-5.1)
[2021-07-14 11:04] LABS: Free T4 (Free Thyroxine) 1.15 ng/dL (0.89-1.76)
[2021-07-14 11:42] LABS: Albumin 2.7 g/dL (3.4-5.0); BUN/Creatinine Ratio 19.2; Bilirubin, Total 0.6 mg/dL (0.2-1.0); Calcium 8.9 mg/dL (8.5-10.1); Total Protein 6.5 g/dL (6.4-8.2)
== END | disposition home or self-care (01) ==
LOC: LAB 09:17
PROVIDERS: ATTEND Internal Medicine
DX: I10 Essential (primary) hypertension (principal); E11.9 Type 2 diabetes mellitus without complications
CPT/HCPCS: 36415; 80053; 80061; 81001; 82043; 82607; 83036; 84439; 84443; 85025; 85652

== ENCOUNTER → 2022-02-20 | Outpatient (CLI) | payer OTHER ==
[2022-02-20 10:57] LABS: Basophils # (auto) 0.1 10 ^3/uL (0-0.2); Eosinophils # (auto) 0.5 10 ^3/uL (0-0.8); Hemoglobin 11.1 g/dL (12.2-16.2); Lymphocytes # (auto) 1.5 10 ^3/uL (0.4-5.4); White Blood Cell 8.5 10^3/uL (4.4-10.8)
[2022-02-20 10:59] LABS: Basophils % (auto) 1.1 % (0.0-2.0); Eosinophils % (auto) 6.3 % (0.0-7.0); Hematocrit 32.9 % (36.0-46.0); Mean Corpuscular Hemoglobin 29.5 pg (28.0-32.0); Mean Corpuscular Hgb Conc. 33.8 g/dL (32.0-36.0); Mean Corpuscular Volume 87.2 fL (80.0-100.0); Monocytes # (auto) 0.5 10 ^3/uL (0-1.3); Monocytes % (auto) 5.9 % (0.0-12.0); Neutrophils # (auto) 5.8 10 ^3/uL (1.6-8.6); Neutrophils % (auto) 68.7 % (37.0-80.0); Nucleated Red Blood Cells % 0.1 %; Red Blood Cells 3.77 10^6/uL (4.0-5.20); Red Cell Distribution Width 14.2 % (11.8-14.3)
[2022-02-20 11:16] LABS: Urine Bacteria NONE SEEN /hpf (None Seen); Urine Blood TRACE /uL (Negative); Urine Specific Gravity 1.009 (1.001-1.035); Urine WBC 1 /hpf (0 - 5)
[2022-02-20 11:36] LABS: Albumin 2.7 g/dL (3.4-5.0); Potassium 4.8 mmol/L (3.5-5.1)
[2022-02-20 11:42] LABS: BUN/Creatinine Ratio 20.3; Bilirubin, Total 0.5 mg/dL (0.2-1.0); Total Protein 6.2 g/dL (6.4-8.2); Uric Acid 4.8 mg/dL (2.6-6.0)
== END | disposition home or self-care (01) ==
LOC: LAB 10:28
PROVIDERS: ATTEND Internal Medicine
DX: E11.9 Type 2 diabetes mellitus without complications (principal); I10 Essential (primary) hypertension
CPT/HCPCS: 36415; 80053; 80061; 81001; 82043; 82570; 83036; 83970; 84439; 84443; 84550; 85025

== ENCOUNTER 2023-01-08 05:44 | Inpatient (IN) | payer OTHER ==
[2023-01-08] VITALS (11 sets, daily range): BP systolic 166–174; BP diastolic 78–79; PULSE 65–81; RESP 15–19; TEMP 98–98.2; O2SAT 91–100
[~2023-01-08] VITALS: Ht 167.6 cm; Wt 81.6 kg
[~2023-01-08 05:44] MED LIST changes: -AMLO-489 PO; +AMLO1TAB22 PO; -LOSA-39 PO; +LOSA100T58 PO; -SIMV-13 PO; +SIMV40TA18 PO
[2023-01-08 06:46] LABS: INR 0.98 (0.9-1.15); Partial Thromboplastin Time 32.5 SEC (24.5-34.5); Prothrombin Time 10.3 sec (9.3-11.8)
[2023-01-08 06:52] LABS: Basophils # (auto) 0.1 10 ^3/uL (0-0.2); Monocytes # (auto) 0.6 10 ^3/uL (0-1.3); Nucleated Red Blood Cells % 0.1 %
[2023-01-08 06:56] LABS: Basophils % (auto) 0.6 % (0.0-2.0); Eosinophils # (auto) 0.5 10 ^3/uL (0-0.8); Hematocrit 29.4 % (36.0-46.0); Hemoglobin 9.5 g/dL (12.2-16.2); Lymphocytes # (auto) 1.6 10 ^3/uL (0.4-5.4); Lymphocytes % (auto) 15.1 % (10.0-50.0); Mean Corpuscular Hemoglobin 26.6 pg (28.0-32.0); Mean Corpuscular Hgb Conc. 32.4 g/dL (32.0-36.0); Mean Corpuscular Volume 82.2 fL (80.0-100.0); Monocytes % (auto) 6.1 % (0.0-12.0); Neutrophils # (auto) 7.5 10 ^3/uL (1.6-8.6); Neutrophils % (auto) 73.2 % (37.0-80.0); Red Blood Cells 3.57 10^6/uL (4.0-5.20); Red Cell Distribution Width 15.4 % (11.8-14.3); White Blood Cell 10.3 10^3/uL (4.4-10.8)
[2023-01-08 06:57] LABS: Albumin 2.2 g/dL (3.4-5.0); Potassium 4.3 mmol/L (3.5-5.1)
[2023-01-08 06:59] LABS: BUN/Creatinine Ratio 12.3 (10.0-20.0); Bilirubin, Total 0.4 mg/dL (0.2-1.0); Total Protein 5.8 g/dL (6.4-8.2)
[2023-01-08] MEDS ORDERED: NITROGLYCERIN 0.4 MG SL TAB SL ONE (07:00)
[2023-01-08] MEDS ORDERED: ASPirin 325 MG TAB PO ONE (07:00)
[2023-01-08 07:26] LABS: Urine Bacteria NONE SEEN /hpf (None Seen); Urine Blood TRACE /uL (Negative); Urine Clarity Clear (Clear); Urine Color Yellow (Yellow); Urine Hyaline Cast FEW /lpf (0 - 2); Urine Protein, UAD 4+ (Negative); Urine Specific Gravity 1.019 (1.001-1.035); Urine Urobilinogen Normal (Negative); Urine WBC 4 /hpf (0 - 5)
[2023-01-08] MEDS ORDERED: hydrALAZINE HCL 20 MG/ML VL IV PRN (09:00)
[2023-01-08] MEDS ORDERED: DEXTROSE (50%) 50ML SYRG IV PRN (09:00)
[2023-01-08] MEDS ORDERED: FUROSEMIDE 20 MG/2 ML VIAL IV ONE (09:00)
[2023-01-08] MEDS ORDERED: ACETAMINOPHEN 325 MG TAB PO PRN (09:00)
[2023-01-08] MEDS ORDERED: MORPHINE SULFATE INJ 2 MG/ml SYRG IV PRN (09:00)
[2023-01-08] MEDS ORDERED: NITROGLYCERIN 0.4 MG SL TAB SL PRN (09:00)
[2023-01-08] MEDS: IPRATROPIUM BROM 0.5 MG/2.5ML INH SOL NEB SCH ×4 (09:56→22:05)
[2023-01-08] MEDS: ALBUTEROL SULF 2.5 MG/0.5ML(0.5%) NEB SOLN NEB SCH ×4 (09:57→22:05)
[2023-01-08] MEDS ORDERED: ASPirin 81 mg TAB PO SCH (10:00)
[2023-01-08] MEDS ORDERED: HCTZ 25 MG TAB GT SCH (10:00)
[2023-01-08 10:10] LABS: Cholesterol 313 mg/dL (< 200); HDL Cholesterol 39 mg/dL (40-59); Triglycerides 413 mg/dL (< 150)
[2023-01-08] MEDS: SACUBITRIL-VALSARTAN 24mg/26mg TAB PO SCH ×2 (10:59→23:24)
[2023-01-08] MEDS: ENOXAPARIN SOD 40 MG/0.4 ML SYRINGE SC SCH (11:00)
[2023-01-08] MEDS: CARVEDILOL 12.5 MG TAB PO SCH ×2 (11:00→23:26)
[2023-01-08] MEDS: ACCU-CHEK COMFORT CURVE STRIP VI SCH ×2 (11:32→17:23)
[2023-01-08] MEDS: InsuLIN REG 1unit/0.01ml Soln (100units/ml) SC SCH ×3 (11:37→23:58)
[2023-01-08] MEDS: BUMETANIDE 2.5mg/10ml (0.25 mg/ml) INJ IV SCH ×2 (13:15→18:00)
[2023-01-08 15:47] LABS: Protein, Urine 403.7 mg/dL (0.0-11.9); Urine Protein/Creatinine Ratio 19.22
[2023-01-08] MEDS: ATORVASTATIN 20 MG TAB PO SCH (22:00)
[2023-01-08] MEDS: amLODIPine BESYLATE 5 MG TAB PO SCH (23:25)
[2023-01-08] MEDS ORDERED: OMEP-434 PO (23:52)
[2023-01-08] MEDS ORDERED: ROSU10TA64 PO (23:52)
[2023-01-09] VITALS (22 sets, daily range): BP systolic 132–166; BP diastolic 57–79; PULSE 62–77; RESP 16–19; TEMP 98–98.6; O2SAT 91–100
[2023-01-09] MEDS: ACCU-CHEK COMFORT CURVE STRIP VI SCH ×5 (00:14→22:06)
[2023-01-09] MEDS: ALBUTEROL SULF 2.5 MG/0.5ML(0.5%) NEB SOLN NEB SCH ×4 (02:11→14:21)
[2023-01-09] MEDS: IPRATROPIUM BROM 0.5 MG/2.5ML INH SOL NEB SCH ×6 (02:11→22:29)
[2023-01-09 05:44] LABS: Basophils # (auto) 0.1 10 ^3/uL (0-0.2); Eosinophils # (auto) 0.4 10 ^3/uL (0-0.8); Hemoglobin 8.7 g/dL (12.2-16.2); Monocytes # (auto) 0.7 10 ^3/uL (0-1.3); Nucleated Red Blood Cells % 0.1 %; White Blood Cell 12.2 10^3/uL (4.4-10.8)
[2023-01-09 05:46] LABS: Basophils % (auto) 0.6 % (0.0-2.0); Eosinophils % (auto) 3.4 % (0.0-7.0); Hematocrit 26.3 % (36.0-46.0); Lymphocytes % (auto) 8.5 % (10.0-50.0); Mean Corpuscular Hgb Conc. 33.1 g/dL (32.0-36.0); Mean Corpuscular Volume 81.5 fL (80.0-100.0); Monocytes % (auto) 5.7 % (0.0-12.0); Neutrophils % (auto) 81.8 % (37.0-80.0); Red Blood Cells 3.23 10^6/uL (4.0-5.20); Red Cell Distribution Width 15.4 % (11.8-14.3)
[2023-01-09] MEDS: BUMETANIDE 2.5mg/10ml (0.25 mg/ml) INJ IV SCH ×2 (06:00→17:30)
[2023-01-09 06:01] LABS: Potassium 3.6 mmol/L (3.5-5.1)
[2023-01-09] MEDS: InsuLIN REG 1unit/0.01ml Soln (100units/ml) SC SCH ×4 (06:01→22:08)
[2023-01-09 06:08] LABS: Albumin 1.9 g/dL (3.4-5.0); BUN/Creatinine Ratio 14.2 (10.0-20.0); Bilirubin, Total 0.5 mg/dL (0.2-1.0); Calcium 8.1 mg/dL (8.5-10.1); Magnesium 2.4 mg/dL (1.6-2.6); Total Protein 5.8 g/dL (6.4-8.2); Uric Acid 4.5 mg/dL (2.6-6.0)
[2023-01-09] MEDS: SACUBITRIL-VALSARTAN 24mg/26mg TAB PO SCH ×2 (09:02→22:13)
[2023-01-09] MEDS: CARVEDILOL 12.5 MG TAB PO SCH ×2 (09:02→22:14)
[2023-01-09] MEDS: ASPirin 81 mg TAB PO SCH (09:03)
[2023-01-09] MEDS: ENOXAPARIN SOD 40 MG/0.4 ML SYRINGE SC SCH (09:03)
[2023-01-09] MEDS ORDERED: FUROSEMIDE 20 MG/2 ML VIAL IV SCH (10:00)
[2023-01-09] MEDS: ALBUTEROL SULF 2.5 MG/0.5ML(0.5%) NEB SOLN NEB PRN (19:25)
[2023-01-09] MEDS: ATORVASTATIN 20 MG TAB PO SCH (22:14)
[2023-01-09] MEDS: amLODIPine BESYLATE 5 MG TAB PO SCH (22:14)
[2023-01-10] VITALS (19 sets, daily range): BP systolic 118–134; BP diastolic 49–70; PULSE 55–67; RESP 16–20; TEMP 97.7–98.7; O2SAT 92–100
[2023-01-10] MEDS: IPRATROPIUM BROM 0.5 MG/2.5ML INH SOL NEB SCH ×5 (01:40→22:35)
[2023-01-10 05:50] LABS: Basophils # (auto) 0.1 10 ^3/uL (0-0.2); Basophils % (auto) 0.4 % (0.0-2.0); Eosinophils # (auto) 0.3 10 ^3/uL (0-0.8); Eosinophils % (auto) 2.5 % (0.0-7.0); Hemoglobin 8.1 g/dL (12.2-16.2); Monocytes # (auto) 0.9 10 ^3/uL (0-1.3); Red Cell Distribution Width 15.1 % (11.8-14.3)
[2023-01-10 05:54] LABS: Lymphocytes # (auto) 1.1 10 ^3/uL (0.4-5.4); Lymphocytes % (auto) 7.7 % (10.0-50.0); Mean Corpuscular Hemoglobin 27.4 pg (28.0-32.0); Mean Corpuscular Hgb Conc. 33.8 g/dL (32.0-36.0); Monocytes % (auto) 6.3 % (0.0-12.0); Neutrophils # (auto) 11.7 10 ^3/uL (1.6-8.6); Neutrophils % (auto) 83.1 % (37.0-80.0); Red Blood Cells 2.97 10^6/uL (4.0-5.20)
[2023-01-10 06:11] LABS: Potassium 3.2 mmol/L (3.5-5.1)
[2023-01-10 06:17] LABS: Albumin 1.8 g/dL (3.4-5.0); Bilirubin, Total 0.5 mg/dL (0.2-1.0); Calcium 8.2 mg/dL (8.5-10.1); Total Protein 5.2 g/dL (6.4-8.2)
[2023-01-10] MEDS: ACCU-CHEK COMFORT CURVE STRIP VI SCH ×4 (06:23→23:22)
[2023-01-10] MEDS: InsuLIN REG 1unit/0.01ml Soln (100units/ml) SC SCH ×4 (06:23→23:33)
[2023-01-10 06:24] LABS: % Iron Saturation 9.5 % (15-50)
[2023-01-10] MEDS: EMPAGLIFLOZIN 10 MG TAB PO SCH (06:24)
[2023-01-10] MEDS: BUMETANIDE 2.5mg/10ml (0.25 mg/ml) INJ IV SCH ×2 (06:24→17:44)
[2023-01-10] MEDS: ALBUTEROL SULF 2.5 MG/0.5ML(0.5%) NEB SOLN NEB PRN (07:16)
[2023-01-10 08:06] LABS: Complement C3 126 mg/dL (82-167); Immunoglobulin A 256 mg/dL (87-352); Immunoglobulin G, Serum 665 mg/dL (586-1602); Immunoglobulin M 58 mg/dL (26-217)
[2023-01-10] MEDS ORDERED: SODIUM FERR GLUC 62.5MG/5ML 125 MG in SODIUM CHL 0.9% 100 ML IV ONE (08:15)
[2023-01-10] MEDS ORDERED: POTASSIUM CHLORIDE 8 MEQ TAB PO ONE (08:15)
[2023-01-10] MEDS ORDERED: ADENOSINE 63 MG in GIVE UN-DILUTED 0 ML IV ONE (08:30)
[2023-01-10 08:44] LABS: Folate (Folic Acid) 12.48 ng/mL (5.38-24)
[2023-01-10] MEDS ORDERED: IRON SUCROSE COMPLEX 200 MG in SODIUM CHL 0.9% 100 ML IV ONE (09:30)
[2023-01-10] MEDS: ENOXAPARIN SOD 40 MG/0.4 ML SYRINGE SC SCH (09:39)
[2023-01-10] MEDS: LACTULOSE 20Gm/30ML SOLN PO SCH ×2 (09:40→18:00)
[2023-01-10] MEDS: CARVEDILOL 12.5 MG TAB PO SCH ×2 (09:41→22:00)
[2023-01-10] MEDS: hydrALAZINE HCL 25 MG TAB PO SCH ×2 (09:41→23:21)
[2023-01-10] MEDS: SACUBITRIL-VALSARTAN 24mg/26mg TAB PO SCH ×2 (09:43→23:21)
[2023-01-10] MEDS: ASPirin 81 mg TAB PO SCH (09:43)
[2023-01-10] MEDS: SPIRONOLACTONE 25 MG TAB PO SCH (09:43)
[2023-01-10] MEDS: SILVER SULFADIAZINE 1 % TOPICAL CREAM 50GM TOP SCH (10:00)
[2023-01-10] MEDS ORDERED: B-COMPLEX W/ C & FOLIC ACID(NEPHROVITE TAB) PO SCH (10:00)
[2023-01-10 12:03] LABS: Hepatitis B Surface Antigen Negative (Negative); Hepatitis C Antibody Negative (Negative)
[2023-01-10] MEDS: FERROUS SULFATE 325mg EC TAB PO SCH ×2 (12:05→17:44)
[2023-01-10] MEDS ORDERED: ONDANSETRON HCL 4 MG/2 ML VIAL IV PRN (13:30)
[2023-01-10] MEDS ORDERED: CYANOCOBALAMIN (B-12) 1000 MCG/1 ML VIAL SUBCUT ONE (19:15)
[2023-01-10] MEDS: ATORVASTATIN 20 MG TAB PO SCH (23:21)
[2023-01-10] MEDS: amLODIPine BESYLATE 5 MG TAB PO SCH (23:22)
[2023-01-11] VITALS (12 sets, daily range): BP systolic 116–143; BP diastolic 44–79; PULSE 57–65; RESP 16–18; TEMP 97.7–98.5; O2SAT 93–100
[2023-01-11] MEDS: IPRATROPIUM BROM 0.5 MG/2.5ML INH SOL NEB SCH ×4 (02:00→14:39)
[2023-01-11 05:39] LABS: Basophils # (auto) 0.1 10 ^3/uL (0-0.2); Eosinophils # (auto) 0.5 10 ^3/uL (0-0.8); Eosinophils % (auto) 5.5 % (0.0-7.0); Monocytes # (auto) 0.7 10 ^3/uL (0-1.3); Neutrophils # (auto) 7.6 10 ^3/uL (1.6-8.6)
[2023-01-11 05:41] LABS: Basophils % (auto) 0.8 % (0.0-2.0); Hematocrit 23.8 % (36.0-46.0); Hemoglobin 8.1 g/dL (12.2-16.2); Lymphocytes # (auto) 1.1 10 ^3/uL (0.4-5.4); Lymphocytes % (auto) 10.5 % (10.0-50.0); Mean Corpuscular Hemoglobin 27.4 pg (28.0-32.0); Mean Corpuscular Hgb Conc. 34.1 g/dL (32.0-36.0); Mean Corpuscular Volume 80.3 fL (80.0-100.0); Monocytes % (auto) 7.4 % (0.0-12.0); Neutrophils % (auto) 75.8 % (37.0-80.0); Red Blood Cells 2.96 10^6/uL (4.0-5.20); Red Cell Distribution Width 15.2 % (11.8-14.3)
[2023-01-11 05:58] LABS: Albumin 1.9 g/dL (3.4-5.0); Calcium 8.1 mg/dL (8.5-10.1); Potassium 3.1 mmol/L (3.5-5.1)
[2023-01-11] MEDS: LACTULOSE 20Gm/30ML SOLN PO SCH ×4 (06:00→11:52)
[2023-01-11 06:01] LABS: BUN/Creatinine Ratio 15.6 (10.0-20.0)
[2023-01-11 06:04] LABS: Bilirubin, Total 0.3 mg/dL (0.2-1.0); Total Protein 5.4 g/dL (6.4-8.2)
[2023-01-11] MEDS: BUMETANIDE 2.5mg/10ml (0.25 mg/ml) INJ IV SCH (06:34)
[2023-01-11] MEDS: EMPAGLIFLOZIN 10 MG TAB PO SCH (06:35)
[2023-01-11] MEDS: ACCU-CHEK COMFORT CURVE STRIP VI SCH ×2 (06:39→11:51)
[2023-01-11] MEDS: InsuLIN REG 1unit/0.01ml Soln (100units/ml) SC SCH ×2 (06:40→12:03)
[2023-01-11] MEDS ORDERED: LEVOTHYROXINE SODIUM 25 MCG TAB PO SCH (07:00)
[2023-01-11] MEDS ORDERED: POTASSIUM CHL 20MEQ/100ML 100 ML IV ONE (08:15)
[2023-01-11] MEDS ORDERED: ADENOSINE 69 MG in GIVE UN-DILUTED 0 ML IV ONE (08:15)
[2023-01-11 08:46] LABS: Free T4 (Free Thyroxine) 1.07 ng/dL (0.89-1.76); T3 Total 0.84 ng/mL (0.60-1.81)
[2023-01-11] MEDS ORDERED: FUROSEMIDE 20 MG TAB PO SCH (10:00)
[2023-01-11] MEDS ORDERED: CYANOCOBALAMIN 500 MCG TAB PO SCH (10:00)
[2023-01-11] MEDS: SILVER SULFADIAZINE 1 % TOPICAL CREAM 50GM TOP SCH (10:00)
[2023-01-11] MEDS: ENOXAPARIN SOD 40 MG/0.4 ML SYRINGE SC SCH (10:00)
[2023-01-11] MEDS: FERROUS SULFATE 325mg EC TAB PO SCH (11:19)
[2023-01-11] MEDS: ASPirin 81 mg TAB PO SCH (11:20)
[2023-01-11] MEDS: SPIRONOLACTONE 25 MG TAB PO SCH (11:20)
[2023-01-11] MEDS: hydrALAZINE HCL 25 MG TAB PO SCH (11:22)
[2023-01-11] MEDS: CARVEDILOL 12.5 MG TAB PO SCH (11:22)
[2023-01-11] MEDS: SACUBITRIL-VALSARTAN 24mg/26mg TAB PO SCH (11:23)
[2023-01-11] MEDS ORDERED: ERGOCALCIFEROL 50,000 UNIT(1.25MG) CAP PO SCH (12:30)
[2023-01-11] MEDS ORDERED: POTASSIUM EFFERVESENT TAB 25 MEQ PO ONE (12:30)
[2023-01-11 12:35] LABS: Alcohol, Urine < 3.0 mg/dL (0-10); Amphetamine Screen, Urine NEGATIVE (NEGATIVE); Benzodiazephine Screen, Urine NEGATIVE (NEGATIVE); Cannabinoid Screen, Urine NEGATIVE (NEGATIVE); Cocaine Screen, Urine NEGATIVE (NEGATIVE); Opiate Scree,Urine NEGATIVE (NEGATIVE); Phencyclidine Screen, Urine NEGATIVE (NEGATIVE)
[2023-01-11 12:38] LABS: Barbiturate Scree,Urine NEGATIVE (NEGATIVE)
[2023-01-11] MEDS ORDERED: EMPA1TAB PO (14:28)
[2023-01-11] MEDS ORDERED: LEV25T PO (14:28)
[2023-01-11] MEDS ORDERED: ERGO1CAP23 PO (14:28)
[2023-01-11] MEDS ORDERED: FER325T PO (14:28)
[2023-01-11] MEDS ORDERED: FUR20T PO (14:28)
[2023-01-11] MEDS ORDERED: HYDR25TA87 PO (14:28)
[2023-01-11] MEDS ORDERED: SPIR25TA PO (14:28)
[2023-01-11] MEDS ORDERED: CYAN-17 PO (15:50)
[2023-01-11] MEDS ORDERED: FERROUS SULFATE 325mg EC TAB PO SCH (18:00)
[2023-01-12] MEDS ORDERED: CLIN300C70 PO (23:33)
[2023-01-12] MEDS ORDERED: BACDST PO (23:33)
== END 2023-01-11 17:47 | disposition home or self-care (01) | DRG 291 ==
LOC: ER 05:44 → TELE 09:03 → TELE-EAST 22:28
PROVIDERS: ADMIT Internal Medicine; ATTEND Internal Medicine
DX: I13.0 Hypertensive heart and chronic kidney disease with heart failure and stage 1 through stage 4 chronic kidney disease, or unspecified chronic kidney disease (principal); E43 Unspecified severe protein-calorie malnutrition; I50.43 Acute on chronic combined systolic (congestive) and diastolic (congestive) heart failure; N17.0 Acute kidney failure with tubular necrosis; E87.1 Hypo-osmolality and hyponatremia; E11.22 Type 2 diabetes mellitus with diabetic chronic kidney disease; D63.1 Anemia in chronic kidney disease; E78.5 Hyperlipidemia, unspecified; I16.0 Hypertensive urgency; I25.10 Atherosclerotic heart disease of native coronary artery without angina pectoris; E03.9 Hypothyroidism, unspecified; E11.65 Type 2 diabetes mellitus with hyperglycemia; N18.32 Chronic kidney disease, stage 3b; D50.9 Iron deficiency anemia, unspecified; E87.6 Hypokalemia; Z68.26 Body mass index [BMI] 26.0-26.9, adult; Z79.4 Long term (current) use of insulin; Z82.49 Family history of ischemic heart disease and other diseases of the circulatory system; Z83.3 Family history of diabetes mellitus; Z91.199 Patient's noncompliance with other medical treatment and regimen due to unspecified reason
CPT/HCPCS: 36415; 71045; 76775; 78452; 78582; 80053; 80061; 80307; 81001; 82270; 82306; 82570; 82607; 82746; 82784; 82962; 83036; 83540; 83550; 83615; 83735; 83880; 83930; 83935; 83970; 84100; 84156; 84300; 84439; 84443; 84480; 84484; 84550; 85025; 85045; 85379; 85610; 85730; 86160; 86334; 86803; 87340; 93005; 93017; 93306; 93970; 94640; 96372; 96374; G0378; J0153; J1756; J1815; J3480

== ENCOUNTER 2023-01-12 19:54 | Emergency (ER) | payer OTHER ==
[~2023-01-12] VITALS: Ht 167.6 cm; Wt 78.5 kg
[~2023-01-12 19:54] MED LIST changes: -CANA300T OR; +CYAN-17 PO; +EMPA1TAB PO; +ERGO1CAP23 PO; +FER325T PO; +FUR20T PO; -HYDR25TA5 GT; +HYDR25TA87 PO; +LEV25T PO; -METO1TAB9 PO; +OMEP-434 PO; -SIMV40TA18 PO; +SPIR25TA PO
[2023-01-12] MEDS ORDERED: SULFAMETHOX W/TRIMETH(800/160MG) DS TAB PO ONE (23:30)
[2023-01-12] MEDS ORDERED: CLINDAMYCIN HCL 150 MG CAP PO ONE (23:30)
[2023-01-12] MEDS ORDERED: CLIN300C70 PO (23:33)
[2023-01-12] MEDS ORDERED: BACDST PO (23:33)
[2023-01-13 00:05] VITALS: BP 176/73; PULSE 73; RESP 18; O2SAT 96
== END 2023-01-13 01:41 | disposition home or self-care (01) ==
LOC: ER 19:54
DX: R22.42 Localized swelling, mass and lump, left lower limb (principal); L02.31 Cutaneous abscess of buttock; E78.5 Hyperlipidemia, unspecified; I11.0 Hypertensive heart disease with heart failure; I50.89 Other heart failure; E11.9 Type 2 diabetes mellitus without complications; Z79.899 Other long term (current) drug therapy; Z79.82 Long term (current) use of aspirin; Z79.84 Long term (current) use of oral hypoglycemic drugs; Z98.890 Other specified postprocedural states

== ENCOUNTER 2023-02-11 15:44 | Inpatient (IN) | payer OTHER, MEDICAID ==
[~2023-02-11] VITALS: Ht 167.6 cm; Wt 173.0 kg
[~2023-02-11 15:44] MED LIST changes: +BACDST PO; +CLIN300C70 PO
[2023-02-11] MEDS ORDERED: cloNIDine HCL 0.1 MG TAB PO ONE (16:00)
[2023-02-11] MEDS ORDERED: OXYMETAZOLINE HCL 0.05 % NASAL SPRAY 15ML EACHNOSTRI ONE (16:00)
[2023-02-11 16:10] LABS: Basophils # (auto) 0.1 10 ^3/uL (0-0.2); Basophils % (auto) 1.3 % (0.0-2.0); Eosinophils # (auto) 0.4 10 ^3/uL (0-0.8); Eosinophils % (auto) 5.9 % (0.0-7.0); Hematocrit 26.1 % (36.0-46.0); Hemoglobin 8.7 g/dL (12.2-16.2); Lymphocytes # (auto) 0.9 10 ^3/uL (0.4-5.4); Lymphocytes % (auto) 13.7 % (10.0-50.0); Mean Corpuscular Hemoglobin 28.4 pg (28.0-32.0); Mean Corpuscular Hgb Conc. 33.4 g/dL (32.0-36.0); Mean Corpuscular Volume 84.9 fL (80.0-100.0); Monocytes # (auto) 0.5 10 ^3/uL (0-1.3); Neutrophils # (auto) 4.9 10 ^3/uL (1.6-8.6); Neutrophils % (auto) 72.1 % (37.0-80.0); Red Blood Cells 3.07 10^6/uL (4.0-5.20); Red Cell Distribution Width 18.1 % (11.8-14.3); White Blood Cell 6.8 10^3/uL (4.4-10.8)
[2023-02-11 16:26] LABS: Alanine Aminotransferase 10 U/L (7-40); Albumin 3.8 g/dL (3.2-4.8); Alkaline Phosphatase 83 U/L (46-116); Anion Gap 6 (5-15); Aspartate Aminotransferase 21 U/L (13-40); Blood Urea Nitrogen 20 mg/dL (9-23); Calcium 8.7 mg/dL (8.7-10.4); Carbon Dioxide 22 mmol/L (20-30); Chloride 102 mmol/L (98-107); Glucose 185 mg/dL (74-106); Potassium 4.9 mmol/L (3.5-5.1); Sodium 130 mmol/L (136-145)
[2023-02-11 16:27] LABS: Bilirubin, Total 0.4 mg/dL (0.2-1.0); Total Protein 6.3 g/dL (5.7-8.2)
[2023-02-11] MEDS ORDERED: LIDOCAINE VISCOUS 2% 15ML UD MT ONE (19:15)
[2023-02-11 19:33] LABS: Basophils # (auto) 0.1 10 ^3/uL (0-0.2); Basophils % (auto) 0.9 % (0.0-2.0); Eosinophils # (auto) 0.3 10 ^3/uL (0-0.8); Eosinophils % (auto) 4.2 % (0.0-7.0); Hemoglobin 7.6 g/dL (12.2-16.2); Lymphocytes # (auto) 0.7 10 ^3/uL (0.4-5.4); Lymphocytes % (auto) 8.5 % (10.0-50.0); Mean Corpuscular Hemoglobin 28.1 pg (28.0-32.0); Mean Corpuscular Volume 85.1 fL (80.0-100.0); Monocytes # (auto) 0.4 10 ^3/uL (0-1.3); Monocytes % (auto) 5.3 % (0.0-12.0); Neutrophils # (auto) 6.6 10 ^3/uL (1.6-8.6); Neutrophils % (auto) 81.1 % (37.0-80.0); Red Cell Distribution Width 17.8 % (11.8-14.3); White Blood Cell 8.1 10^3/uL (4.4-10.8)
[2023-02-11 19:35] VITALS: PULSE 64; RESP 20; O2SAT 98
[2023-02-11 19:54] LABS: Albumin 3.2 g/dL (3.2-4.8); Alkaline Phosphatase 66 U/L (46-116); Anion Gap 4 (5-15); Aspartate Aminotransferase < 8 U/L (13-40); BUN/Creatinine Ratio 16.5 (10.0-20.0); Bilirubin, Total 0.5 mg/dL (0.2-1.0); Blood Urea Nitrogen 26 mg/dL (9-23); Calcium 8.1 mg/dL (8.7-10.4); Carbon Dioxide 22 mmol/L (20-30); Chloride 104 mmol/L (98-107); Glucose 200 mg/dL (74-106); Potassium 4.3 mmol/L (3.5-5.1); Sodium 130 mmol/L (136-145)
[2023-02-11 20:41] LABS: Alanine Aminotransferase < 9 U/L (7-40)
[2023-02-11] MEDS ORDERED: DEXTROSE (50%) 50ML SYRG IV PRN (22:00)
[2023-02-11] MEDS ORDERED: NITROGLYCERIN 0.4 MG SL TAB SL PRN (22:00)
[2023-02-11] MEDS ORDERED: TEMAZEPAM 15 MG CAP PO PRN (22:00)
[2023-02-11] MEDS ORDERED: ONDANSETRON HCL 4 MG/2 ML VIAL IV PRN (22:00)
[2023-02-11] MEDS ORDERED: MORPHINE SULFATE INJ 2 MG/ml SYRG IV PRN (22:00)
[2023-02-11 22:27] LABS: INR 0.98 (0.9-1.15); Partial Thromboplastin Time 29.8 SEC (24.5-34.5); Prothrombin Time 10.3 sec (9.3-11.8)
[2023-02-11] MEDS: hydrALAZINE HCL 25 MG TAB PO SCH (23:59)
[2023-02-11] MEDS: ATORVASTATIN 20 MG TAB PO SCH (23:59)
[2023-02-12] MEDS: CARVEDILOL 12.5 MG TAB PO SCH ×3 (00:07→22:00)
[2023-02-12] MEDS: InsuLIN REG 1unit/0.01ml Soln (100units/ml) SC SCH ×5 (00:32→22:04)
[2023-02-12] MEDS: ACCU-CHEK COMFORT CURVE STRIP VI SCH ×5 (00:33→22:00)
[2023-02-12 05:18] LABS: Basophils # (auto) 0.1 10 ^3/uL (0-0.2); Eosinophils # (auto) 0.3 10 ^3/uL (0-0.8); Hemoglobin 7.4 g/dL (12.2-16.2); Monocytes # (auto) 0.5 10 ^3/uL (0-1.3)
[2023-02-12 05:21] LABS: Eosinophils % (auto) 3.8 % (0.0-7.0); Lymphocytes # (auto) 0.8 10 ^3/uL (0.4-5.4); Lymphocytes % (auto) 11.2 % (10.0-50.0); Mean Corpuscular Hemoglobin 28.4 pg (28.0-32.0); Mean Corpuscular Hgb Conc. 33.8 g/dL (32.0-36.0); Monocytes % (auto) 7.6 % (0.0-12.0); Neutrophils # (auto) 5.3 10 ^3/uL (1.6-8.6); Neutrophils % (auto) 76.4 % (37.0-80.0); Red Blood Cells 2.62 10^6/uL (4.0-5.20); Red Cell Distribution Width 17.7 % (11.8-14.3)
[2023-02-12 05:33] LABS: Albumin 3.3 g/dL (3.2-4.8); Alkaline Phosphatase 59 U/L (46-116); Anion Gap 5 (5-15); Aspartate Aminotransferase < 8 U/L (13-40); BUN/Creatinine Ratio 13.9 (10.0-20.0); Blood Urea Nitrogen 22 mg/dL (9-23); Calcium 8.5 mg/dL (8.7-10.4); Carbon Dioxide 22 mmol/L (20-30); Chloride 103 mmol/L (98-107); Glucose 126 mg/dL (74-106); Potassium 4.1 mmol/L (3.5-5.1); Sodium 130 mmol/L (136-145)
[2023-02-12 05:34] LABS: Bilirubin, Total 0.4 mg/dL (0.2-1.0); Total Protein 5.5 g/dL (5.7-8.2)
[2023-02-12 05:39] LABS: Alanine Aminotransferase < 9 U/L (7-40)
[2023-02-12] MEDS: LEVOTHYROXINE SODIUM 25 MCG TAB PO SCH (07:13)
[2023-02-12 07:28] VITALS: PULSE 66; RESP 16; O2SAT 95
[2023-02-12] MEDS: amLODIPine BESYLATE 5 MG TAB PO SCH (10:50)
[2023-02-12] MEDS: FUROSEMIDE 20 MG TAB PO SCH (10:51)
[2023-02-12] MEDS: PANTOPRAZOLE 40 MG TAB PO SCH (10:51)
[2023-02-12] MEDS: SACUBITRIL-VALSARTAN 24mg/26mg TAB PO SCH ×3 (11:24→22:05)
[2023-02-12] MEDS: hydrALAZINE HCL 25 MG TAB PO SCH ×2 (11:24→20:14)
[2023-02-12] MEDS: AZITHROMYCIN 250 MG TAB PO SCH (15:04)
[2023-02-12] MEDS: ACETAMINOPHEN 325 MG TAB PO PRN (19:48)
[2023-02-12] MEDS: ATORVASTATIN 20 MG TAB PO SCH (22:05)
[2023-02-12] MEDS: guaiFENesin-DM 100/10mg/5ml SYR PO SCH (22:08)
[2023-02-12 22:31] VITALS: BP 146/61; PULSE 69; RESP 19; TEMP 98.2; O2SAT 92
[2023-02-13] MEDS: ACETAMINOPHEN 325 MG TAB PO PRN (04:32)
[2023-02-13 05:00] VITALS: BP 170/65; PULSE 81; RESP 20; TEMP 98.4; O2SAT 93
[2023-02-13] MEDS: guaiFENesin-DM 100/10mg/5ml SYR PO SCH ×2 (05:12→14:00)
[2023-02-13] MEDS: LEVOTHYROXINE SODIUM 25 MCG TAB PO SCH (06:11)
[2023-02-13] MEDS: ACCU-CHEK COMFORT CURVE STRIP VI SCH ×2 (06:21→12:50)
[2023-02-13] MEDS: InsuLIN REG 1unit/0.01ml Soln (100units/ml) SC SCH ×2 (06:25→12:51)
[2023-02-13 08:00] VITALS: PULSE 68; RESP 17; O2SAT 93
[2023-02-13 08:30] VITALS: BP 148/62; PULSE 68; RESP 17; TEMP 98.5; O2SAT 93
[2023-02-13 08:45] LABS: Basophils % (auto) 0.8 % (0.0-2.0); Lymphocytes # (auto) 0.9 10 ^3/uL (0.4-5.4); Monocytes # (auto) 0.5 10 ^3/uL (0-1.3); White Blood Cell 6.3 10^3/uL (4.4-10.8)
[2023-02-13 08:48] LABS: Basophils # (auto) 0.1 10 ^3/uL (0-0.2); Eosinophils # (auto) 0.4 10 ^3/uL (0-0.8); Eosinophils % (auto) 5.8 % (0.0-7.0); Hematocrit 22.3 % (36.0-46.0); Hemoglobin 7.5 g/dL (12.2-16.2); Lymphocytes % (auto) 13.6 % (10.0-50.0); Mean Corpuscular Hemoglobin 28.2 pg (28.0-32.0); Mean Corpuscular Hgb Conc. 33.7 g/dL (32.0-36.0); Mean Corpuscular Volume 83.7 fL (80.0-100.0); Monocytes % (auto) 8.3 % (0.0-12.0); Neutrophils # (auto) 4.5 10 ^3/uL (1.6-8.6); Neutrophils % (auto) 71.5 % (37.0-80.0); Red Blood Cells 2.67 10^6/uL (4.0-5.20); Red Cell Distribution Width 17.8 % (11.8-14.3)
[2023-02-13] MEDS: AZITHROMYCIN 250 MG TAB PO SCH (08:59)
[2023-02-13] MEDS: PANTOPRAZOLE 40 MG TAB PO SCH (09:00)
[2023-02-13] MEDS: SACUBITRIL-VALSARTAN 24mg/26mg TAB PO SCH (09:00)
[2023-02-13] MEDS: amLODIPine BESYLATE 5 MG TAB PO SCH (09:00)
[2023-02-13] MEDS: CARVEDILOL 12.5 MG TAB PO SCH (09:01)
[2023-02-13] MEDS: FUROSEMIDE 20 MG TAB PO SCH (09:01)
[2023-02-13] MEDS: hydrALAZINE HCL 25 MG TAB PO SCH (09:01)
[2023-02-13] MEDS ORDERED: AZIT500T66 PO (09:12)
[2023-02-13] MEDS ORDERED: DEXT1SYP9 PO (09:12)
[2023-02-13 12:21] VITALS: BP 148/62; PULSE 68; RESP 17; TEMP 98.5; O2SAT 93
[2023-02-13 13:00] VITALS: BP 127/47; PULSE 59; RESP 18; TEMP 98.3; O2SAT 91
== END 2023-02-13 14:44 | disposition home or self-care (01) | DRG 305 ==
LOC: ER 15:44 → TELE 22:04 → TELE-WESTW 02-12 22:37
PROVIDERS: ADMIT Nurse Practitioner; ATTEND Family Medicine
DX: I16.0 Hypertensive urgency (principal); I50.20 Unspecified systolic (congestive) heart failure; Z68.44 Body mass index [BMI] 60.0-69.9, adult; R04.0 Epistaxis; I11.0 Hypertensive heart disease with heart failure; E66.9 Obesity, unspecified; D50.0 Iron deficiency anemia secondary to blood loss (chronic); E11.9 Type 2 diabetes mellitus without complications; E78.00 Pure hypercholesterolemia, unspecified; I25.10 Atherosclerotic heart disease of native coronary artery without angina pectoris; E78.5 Hyperlipidemia, unspecified
CPT/HCPCS: 36415; 80053; 82962; 85025; 85610; 85730; 86850; 86900; 86901; G0378; J1815

== ENCOUNTER 2023-02-23 21:11 | Emergency (ER) | payer OTHER, MEDICAID ==
[~2023-02-23 21:11] MED LIST changes: +AZIT500T66 PO; +DEXT1SYP9 PO
[2023-02-23 21:25] VITALS: BP 185/74; TEMP 98
[2023-02-24 01:43] VITALS: PULSE 77; RESP 18; O2SAT 96
== END 2023-02-24 01:42 | disposition home or self-care (01) ==
LOC: ER 21:11
DX: R04.0 Epistaxis (principal); I11.0 Hypertensive heart disease with heart failure; I50.9 Heart failure, unspecified; E78.5 Hyperlipidemia, unspecified; E11.9 Type 2 diabetes mellitus without complications; I25.10 Atherosclerotic heart disease of native coronary artery without angina pectoris; Z98.890 Other specified postprocedural states; Z79.84 Long term (current) use of oral hypoglycemic drugs; Z79.899 Other long term (current) drug therapy
CPT/HCPCS: 30901

== ENCOUNTER 2023-02-24 12:56 | Emergency (ER) | payer OTHER, MEDICAID ==
[~2023-02-24] VITALS: Ht 165.1 cm; Wt 75.4 kg
[2023-02-24 13:32] VITALS: BP 135/72; PULSE 85; RESP 16; TEMP 97.3; O2SAT 98
== END 2023-02-24 13:56 | disposition home or self-care (01) ==
LOC: ER 12:56
DX: Z48.00 Encounter for change or removal of nonsurgical wound dressing (principal); I11.0 Hypertensive heart disease with heart failure; I50.9 Heart failure, unspecified; E11.9 Type 2 diabetes mellitus without complications; E78.5 Hyperlipidemia, unspecified; I25.10 Atherosclerotic heart disease of native coronary artery without angina pectoris; Z98.890 Other specified postprocedural states; Z79.84 Long term (current) use of oral hypoglycemic drugs; Z79.899 Other long term (current) drug therapy

== ENCOUNTER 2023-07-20 15:17 | Inpatient (IN) | payer OTHER, MEDICAID ==
[~2023-07-20] VITALS: Ht 165.1 cm; Wt 80.2 kg
[2023-07-20 16:29] LABS: Basophils # (auto) 0.1 10 ^3/uL (0-0.2); Hemoglobin 7.3 g/dL (12.2-16.2); Lymphocytes # (auto) 1.4 10 ^3/uL (0.4-5.4); Nucleated Red Blood Cells % 0.7 %
[2023-07-20 16:31] LABS: Basophils % (auto) 1.4 % (0.0-2.0); Eosinophils # (auto) 0.3 10 ^3/uL (0-0.8); Eosinophils % (auto) 3.1 % (0.0-7.0); Hematocrit 23.4 % (36.0-46.0); Lymphocytes % (auto) 14.5 % (10.0-50.0); Mean Corpuscular Hemoglobin 22.2 pg (28.0-32.0); Mean Corpuscular Hgb Conc. 31.4 g/dL (32.0-36.0); Mean Corpuscular Volume 70.8 fL (80.0-100.0); Monocytes # (auto) 0.6 10 ^3/uL (0-1.3); Monocytes % (auto) 6.5 % (0.0-12.0); Neutrophils # (auto) 7.4 10 ^3/uL (1.6-8.6); Neutrophils % (auto) 74.5 % (37.0-80.0); Red Cell Distribution Width 19.9 % (11.8-14.3); White Blood Cell 9.9 10^3/uL (4.4-10.8)
[2023-07-20 16:43] LABS: Alanine Aminotransferase 10 U/L (7-40); Alkaline Phosphatase 97 U/L (46-116); Anion Gap 8 (5-15); Aspartate Aminotransferase 13 U/L (13-40); Blood Urea Nitrogen 20 mg/dL (9-23); Calcium 8.7 mg/dL (8.7-10.4); Carbon Dioxide 19 mmol/L (20-30); Chloride 98 mmol/L (98-107); Glucose 138 mg/dL (74-106); Magnesium 2.1 mg/dL (1.6-2.6); Potassium 3.6 mmol/L (3.5-5.1); Sodium 125 mmol/L (136-145)
[2023-07-20] MEDS: IPRATROPIUM BROM 0.5 MG/2.5ML INH SOL HHN ONE (16:43)
[2023-07-20] MEDS: ALBUTEROL SULF 2.5 MG/0.5ML(0.5%) NEB SOLN HHN ONE (16:43)
[2023-07-20 16:44] LABS: Bilirubin, Total 0.4 mg/dL (0.2-1.0); Total Protein 6.6 g/dL (5.7-8.2)
[2023-07-20] MEDS ORDERED: DOCUSATE SOD 100 MG CAP PO PRN (18:45)
[2023-07-20] MEDS ORDERED: ACETAMINOPHEN 325 MG TAB PO PRN (18:45)
[2023-07-20] MEDS ORDERED: HYDROmorphone HCL 2 MG/ML VL/or syr IV PRN (18:45)
[2023-07-20] MEDS ORDERED: ONDANSETRON HCL 4 MG/2 ML VIAL IV PRN (18:45)
[2023-07-20] MEDS ORDERED: ALBUTEROL SULF 2.5 MG/0.5ML(0.5%) NEB SOLN NEB SCH (19:00)
[2023-07-20] MEDS ORDERED: IPRATROPIUM BROM 0.5 MG/2.5ML INH SOL NEB SCH (19:00)
[2023-07-20 19:30] LABS: % Iron Saturation 3.3 % (15-50)
[2023-07-20 20:00] VITALS: PULSE 64; RESP 20; O2SAT 99
[2023-07-20] MEDS: FAMOTIDINE 20 MG TAB PO ONE (20:31)
[2023-07-20] MEDS: FUROSEMIDE 100 MG/10ML VIAL IV ONE (20:31)
[2023-07-20 20:46] LABS: Creatinine, Urine 58.92 mg/dL (30.0-125.0)
[2023-07-20 21:07] LABS: COVID19 ANTIGEN SOFIA FIA NEGATIVE (NEGATIVE); Rapid Influenza A Negative (Negative); Rapid Influenza B Negative (Negative)
[2023-07-20] MEDS: FUROSEMIDE 40 MG/4 ML VIAL IV SCH (22:00)
[2023-07-20] MEDS: SODIUM CHLOR 0.9% PF (SALINE LOCK) 10ML VIAL/SYR IV SCH (22:23)
[2023-07-20 23:48] VITALS: PULSE 68; RESP 18; O2SAT 99
[2023-07-20] MEDS: IPRATROPIUM BROM 0.5 MG/2.5ML INH SOL NEB SCH (23:50)
[2023-07-20] MEDS: ALBUTEROL SULF 2.5 MG/0.5ML(0.5%) NEB SOLN NEB SCH (23:50)
[2023-07-20 23:58] VITALS: PULSE 72; RESP 16; O2SAT 100
[2023-07-21] VITALS (17 sets, daily range): BP systolic 134–176; BP diastolic 57–77; PULSE 64–86; RESP 14–22; TEMP 97.8–98.7; O2SAT 97–100
[2023-07-21] MEDS: hydrALAZINE HCL 20 MG/ML VL IV PRN (00:22)
[2023-07-21] MEDS: HYDROcodone-ACET 5/325MG TAB PO PRN (02:27)
[2023-07-21 12:21] LABS: Triglycerides 127 mg/dL (< 150)
[2023-07-21 12:22] LABS: LDL Cholesterol 127 mg/dL (< 100)
[2023-07-21 12:23] LABS: Cholesterol 177 mg/dL (< 200); HDL Cholesterol 37 mg/dL (40-59)
[2023-07-21] MEDS: ASPirin 81 mg TAB PO SCH (12:34)
[2023-07-21] MEDS: METOPROLOL TARTRATE 25 MG TAB PO SCH (12:34)
[2023-07-21] MEDS: POTASSIUM EFFERVESENT TAB 25 MEQ PO ONE (13:36)
[2023-07-21 14:10] LABS: Urine Bacteria NONE SEEN /hpf (None Seen); Urine Blood Negative /uL (Negative); Urine Clarity Clear (Clear); Urine Color Colorless (Yellow); Urine Protein, UAD 2+ (Negative); Urine Specific Gravity 1.006 (1.001-1.035); Urine Urobilinogen Normal (Negative); Urine WBC 1 /hpf (0 - 5)
[2023-07-21 14:26] LABS: Protein, Urine 212.6 mg/dL (0.0-11.9)
[2023-07-21 14:29] LABS: Creatinine, Urine 18.69 mg/dL (30.0-125.0); Urine Protein/Creatinine Ratio 11.38
[2023-07-21 16:18] LABS: % Iron Saturation 4.1 % (15-50)
[2023-07-22] VITALS (7 sets, daily range): BP systolic 138–170; BP diastolic 54–65; PULSE 71–77; RESP 18–22; TEMP 98.2–98.6; O2SAT 95–98
[2023-07-22] MEDS ORDERED: ALBUTEROL SULF 2.5 MG/0.5ML(0.5%) NEB SOLN NEB PRN
[2023-07-22] MEDS ORDERED: IPRATROPIUM BROM 0.5 MG/2.5ML INH SOL NEB PRN
[2023-07-22] MEDS: EMPAGLIFLOZIN 10 MG TAB PO SCH (06:24)
[2023-07-22 08:51] LABS: Hepatitis B Surface Antigen Negative (Negative)
[2023-07-22 09:13] LABS: Hepatitis C Antibody Negative (Negative)
[2023-07-22] MEDS: IRON SUCROSE COMPLEX 100 ML IV SCH (13:21)
== END 2023-07-22 18:48 | disposition home or self-care (01) | DRG 291 ==
LOC: ER 15:17 → TELE 18:45 → TELE-WESTW 22:46
PROVIDERS: ADMIT Internal Medicine; ATTEND Hospitalist
DX: I13.0 Hypertensive heart and chronic kidney disease with heart failure and stage 1 through stage 4 chronic kidney disease, or unspecified chronic kidney disease (principal); I50.23 Acute on chronic systolic (congestive) heart failure; N17.9 Acute kidney failure, unspecified; E87.1 Hypo-osmolality and hyponatremia; N18.30 Chronic kidney disease, stage 3 unspecified; E11.22 Type 2 diabetes mellitus with diabetic chronic kidney disease; E66.9 Obesity, unspecified; D50.9 Iron deficiency anemia, unspecified; Z20.822 Contact with and (suspected) exposure to COVID-19; I25.10 Atherosclerotic heart disease of native coronary artery without angina pectoris; E78.5 Hyperlipidemia, unspecified; I44.7 Left bundle-branch block, unspecified; R04.0 Epistaxis; Z79.4 Long term (current) use of insulin; Z68.29 Body mass index [BMI] 29.0-29.9, adult; Z82.49 Family history of ischemic heart disease and other diseases of the circulatory system; Z83.3 Family history of diabetes mellitus
CPT/HCPCS: 36415; 71045; 76775; 80053; 80061; 81001; 82306; 82570; 82728; 83036; 83540; 83550; 83605; 83735; 83880; 83930; 83935; 83970; 84100; 84156; 84300; 84443; 85025; 86803; 87040; 87340; 87426; 87804; 93306; 94640; 96374; G0378; J1756

== ENCOUNTER 2023-10-01 10:21 | Inpatient (IN) | payer OTHER, MEDICAID ==
[~2023-10-01] VITALS: Ht 167.6 cm; Wt 77.1 kg
[~2023-10-01 10:21] MED LIST changes: -AMLO1TAB22 PO; -ASPI81CH43 PO; -ATOR20TA50 PO; -AZIT500T66 PO; -BACDST PO; -CAR125T PO; -CLIN300C70 PO; -CYAN-17 PO; -DEXT1SYP9 PO; -LEV25T PO; +LOSA-535 PO; -LOSA100T58 PO; -METF-372 PO; -SACU1TAB PO; -SPIR25TA PO
[2023-10-01 11:41] LABS: Urine Bacteria None Seen /hpf (None Seen)
[2023-10-01] MEDS: PANTOPRAZOLE 40 MG/10 ML VIAL INJ IV ONE (11:42)
[2023-10-01] MEDS: ONDANSETRON HCL 4 MG/2 ML VIAL IV ONE (11:42)
[2023-10-01] MEDS: SODIUM CHLORIDE 0.9% 1,000 ML IV ONE (11:43)
[2023-10-01 11:48] LABS: Basophils # (auto) 0.1 10 ^3/uL (0-0.2); Eosinophils # (auto) 0.1 10 ^3/uL (0-0.8); Lymphocytes # (auto) 1.1 10 ^3/uL (0.4-5.4); Lymphocytes % (auto) 11.7 % (10.0-50.0); Monocytes # (auto) 0.4 10 ^3/uL (0-1.3); White Blood Cell 9.2 10^3/uL (4.4-10.8)
[2023-10-01 11:49] LABS: Alanine Aminotransferase 12 U/L (7-40); Albumin 3.6 g/dL (3.2-4.8); Alkaline Phosphatase 93 U/L (46-116); Anion Gap 9 (5-15); Aspartate Aminotransferase 15 U/L (13-40); BUN/Creatinine Ratio 19.2 (10.0-20.0); Blood Urea Nitrogen 37 mg/dL (9-23); CRP High Sensitivity 0.95 mg/dL (<1.0); Carbon Dioxide 19 mmol/L (20-30); Chloride 100 mmol/L (98-107); Glucose 216 mg/dL (74-106); Potassium 4.2 mmol/L (3.5-5.1); Sodium 128 mmol/L (136-145)
[2023-10-01 11:50] LABS: Bilirubin, Total 0.4 mg/dL (0.2-1.0); Total Protein 5.7 g/dL (5.7-8.2)
[2023-10-01 11:51] LABS: Basophils % (auto) 0.9 % (0.0-2.0); Eosinophils % (auto) 0.9 % (0.0-7.0); Hematocrit 23.2 % (36.0-46.0); Hemoglobin 7.5 g/dL (12.2-16.2); Mean Corpuscular Hemoglobin 25.5 pg (28.0-32.0); Mean Corpuscular Hgb Conc. 32.4 g/dL (32.0-36.0); Mean Corpuscular Volume 78.6 fL (80.0-100.0); Monocytes % (auto) 4.8 % (0.0-12.0); Neutrophils # (auto) 7.5 10 ^3/uL (1.6-8.6); Neutrophils % (auto) 81.7 % (37.0-80.0); Nucleated Red Blood Cells % 0.1 %; Red Blood Cells 2.96 10^6/uL (4.0-5.20); Red Cell Distribution Width 20.1 % (11.8-14.3)
[2023-10-01 12:00] VITALS: PULSE 73; RESP 18; O2SAT 97
[2023-10-01 12:02] LABS: INR 0.97 (0.9-1.15); Partial Thromboplastin Time 28.2 SEC (24.5-34.5); Prothrombin Time 10.3 sec (9.3-11.8)
[2023-10-01 12:20] LABS: Urine Blood TRACE /uL (Negative); Urine Clarity Clear (Clear); Urine Color Light-Yellow (Yellow); Urine Protein, UAD 3+ (Negative); Urine Specific Gravity 1.016 (1.001-1.035); Urine Urobilinogen Normal (Negative); Urine WBC 2 /hpf (0 - 5)
[2023-10-01 12:42] VITALS: BP 148/69; RESP 18; TEMP 97.3; O2SAT 98
[2023-10-01] MEDS ORDERED: DOCUSATE SOD 100 MG CAP PO PRN (13:30)
[2023-10-01] MEDS ORDERED: MORPHINE SULFATE INJ 2 MG/ml SYRG IV PRN ×2 (13:30)
[2023-10-01] MEDS ORDERED: SODIUM CHLORIDE 0.9% 1,000 ML IV ONE (13:30)
[2023-10-01] MEDS ORDERED: DICYCLOMINE HCL 10 MG CAP PO PRN (13:30)
[2023-10-01] MEDS ORDERED: ACETAMINOPHEN 325 MG TAB PO PRN (13:30)
[2023-10-01] MEDS ORDERED: METO1TAB9 PO (13:30)
[2023-10-01] MEDS ORDERED: NITROGLYCERIN 0.4 MG SL TAB SL PRN (13:30)
[2023-10-01] MEDS ORDERED: ONDANSETRON HCL 4 MG/2 ML VIAL IV PRN (13:30)
[2023-10-01] MEDS ORDERED: DEXTROSE (50%) 50ML SYRG IV PRN (13:30)
[2023-10-01] MEDS ORDERED: FINE10TA PO (13:30)
[2023-10-01] MEDS ORDERED: HYDROcodone-ACET 5/325MG TAB PO PRN (13:30)
[2023-10-01] MEDS ORDERED: GLIP5TAB21 PO (13:30)
[2023-10-01] MEDS: FUROSEMIDE 40 MG/4 ML VIAL IV ONE (13:52)
[2023-10-01] MEDS: ALBUMIN 5% 250 ML IV ONE (14:02)
[2023-10-01 16:00] VITALS: PULSE 77
[2023-10-01] MEDS ORDERED: InsuLIN REG 1unit/0.01ml Soln (100units/ml) SC SCH (17:00)
[2023-10-01] MEDS ORDERED: ACCU-CHEK COMFORT CURVE STRIP VI SCH (17:00)
[2023-10-01] MEDS ORDERED: FERROUS SULFATE 325mg EC TAB PO SCH (18:00)
[2023-10-01 21:22] LABS: Lipase 48 U/L (12-53)
[2023-10-01] MEDS ORDERED: PANTOPRAZOLE 40 MG/10 ML VIAL INJ IV SCH (22:00)
[2023-10-02] MEDS ORDERED: FINERENONE 10 MG PO SCH (10:00)
[2023-10-02] MEDS ORDERED: PATIENTS OWN MEDICATION (Metoprolol Succinate (Metoprolol Succinate Er) 1 TAB) PO SCH (10:00)
[2023-10-02] MEDS ORDERED: FUROSEMIDE 20 MG/2 ML VIAL IV SCH (10:00)
[2023-10-02] MEDS ORDERED: METOPROLOL SUCCINATE XL 50 MG TAB PO SCH (10:00)
== END 2023-10-01 17:26 | disposition left against medical advice (07) | DRG 377 ==
LOC: ER 10:21 → OVERFLOW 13:29
PROVIDERS: ADMIT Nurse Practitioner Family; ATTEND Nurse Practitioner Family
DX: K92.2 Gastrointestinal hemorrhage, unspecified (principal); I50.43 Acute on chronic combined systolic (congestive) and diastolic (congestive) heart failure; N17.0 Acute kidney failure with tubular necrosis; E87.1 Hypo-osmolality and hyponatremia; I13.0 Hypertensive heart and chronic kidney disease with heart failure and stage 1 through stage 4 chronic kidney disease, or unspecified chronic kidney disease; N18.30 Chronic kidney disease, stage 3 unspecified; Z53.29 Procedure and treatment not carried out because of patient's decision for other reasons; E11.22 Type 2 diabetes mellitus with diabetic chronic kidney disease; R04.0 Epistaxis; D50.9 Iron deficiency anemia, unspecified; Z90.49 Acquired absence of other specified parts of digestive tract; Z87.11 Personal history of peptic ulcer disease; Z79.4 Long term (current) use of insulin
CPT/HCPCS: 36415; 71045; 74176; 80053; 81001; 83605; 83690; 83880; 84484; 85025; 85610; 85730; 86141; 86850; 86900; 86901; 93005; C9113; G0378; J2405

== ENCOUNTER 2023-10-02 21:48 | Inpatient (IN) | payer OTHER, MEDICAID ==
[~2023-10-02] VITALS: Ht 167.6 cm; Wt 77.0 kg
[~2023-10-02 21:48] MED LIST changes: +FINE10TA PO; +GLIP5TAB21 PO; +METO1TAB9 PO
[2023-10-02 22:25] LABS: Basophils # (auto) 0.1 10 ^3/uL (0-0.2); Eosinophils # (auto) 0.2 10 ^3/uL (0-0.8); Lymphocytes # (auto) 1.3 10 ^3/uL (0.4-5.4); Monocytes # (auto) 0.7 10 ^3/uL (0-1.3); Neutrophils # (auto) 8.2 10 ^3/uL (1.6-8.6); Nucleated Red Blood Cells % 0.4 %
[2023-10-02 22:27] LABS: Basophils % (auto) 0.8 % (0.0-2.0); Eosinophils % (auto) 2.2 % (0.0-7.0); Hematocrit 21.4 % (36.0-46.0); Lymphocytes % (auto) 12.3 % (10.0-50.0); Mean Corpuscular Hemoglobin 25.3 pg (28.0-32.0); Mean Corpuscular Hgb Conc. 32.1 g/dL (32.0-36.0); Mean Corpuscular Volume 78.8 fL (80.0-100.0); Monocytes % (auto) 6.7 % (0.0-12.0); Red Blood Cells 2.72 10^6/uL (4.0-5.20); Red Cell Distribution Width 19.8 % (11.8-14.3); White Blood Cell 10.5 10^3/uL (4.4-10.8)
[2023-10-02 22:32] LABS: Hemoglobin 6.9 g/dL (12.2-16.2)
[2023-10-02 22:56] LABS: Alanine Aminotransferase 16 U/L (7-40); Albumin 3.7 g/dL (3.2-4.8); Alkaline Phosphatase 113 U/L (46-116); Anion Gap 9 (5-15); Aspartate Aminotransferase 25 U/L (13-40); Bilirubin, Total 0.3 mg/dL (0.2-1.0); Blood Urea Nitrogen 30 mg/dL (9-23); Calcium 8.9 mg/dL (8.5-10.1); Carbon Dioxide 18 mmol/L (20-30); Chloride 99 mmol/L (98-107); Glucose 149 mg/dL (74-106); Potassium 3.8 mmol/L (3.5-5.1); Sodium 126 mmol/L (136-145); Total Protein 5.9 g/dL (5.7-8.2)
[2023-10-02 23:26] VITALS: PULSE 65; RESP 15; O2SAT 95
[2023-10-03] VITALS (12 sets, daily range): BP systolic 146–169; BP diastolic 67–85; PULSE 54–82; RESP 16–22; TEMP 98–98.4; O2SAT 94–99
[2023-10-03] MEDS ORDERED: ONDANSETRON HCL 4 MG/2 ML VIAL IV PRN
[2023-10-03] MEDS ORDERED: MORPHINE SULFATE INJ 2 MG/ml SYRG IV PRN
[2023-10-03] MEDS ORDERED: DEXTROSE (50%) 50ML SYRG IV PRN
[2023-10-03] MEDS ORDERED: NITROGLYCERIN 0.4 MG SL TAB SL PRN
[2023-10-03 00:22] LABS: Partial Thromboplastin Time 25.2 SEC (24.5-34.5); Prothrombin Time 10.6 sec (9.3-11.8)
[2023-10-03] MEDS: ACCU-CHEK COMFORT CURVE STRIP VI SCH (01:00)
[2023-10-03] MEDS: PANTOPRAZOLE 40 MG/10 ML VIAL INJ IV ONE (01:06)
[2023-10-03] MEDS: InsuLIN REG 1unit/0.01ml Soln (100units/ml) SC SCH (01:14)
[2023-10-03] MEDS: FUROSEMIDE 20 MG/2 ML VIAL IV SCH (05:59)
[2023-10-03 07:05] LABS: Basophils # (auto) 0.1 10 ^3/uL (0-0.2); Eosinophils # (auto) 0.3 10 ^3/uL (0-0.8); Hemoglobin 7.6 g/dL (12.2-16.2); Lymphocytes # (auto) 1.3 10 ^3/uL (0.4-5.4); Monocytes # (auto) 0.7 10 ^3/uL (0-1.3)
[2023-10-03 07:07] LABS: Hematocrit 22.7 % (36.0-46.0); Lymphocytes % (auto) 15.2 % (10.0-50.0); Mean Corpuscular Hemoglobin 26.8 pg (28.0-32.0); Mean Corpuscular Hgb Conc. 33.4 g/dL (32.0-36.0); Mean Corpuscular Volume 80.3 fL (80.0-100.0); Neutrophils # (auto) 6.5 10 ^3/uL (1.6-8.6); Neutrophils % (auto) 72.8 % (37.0-80.0); Nucleated Red Blood Cells % 0.4 %; Red Blood Cells 2.83 10^6/uL (4.0-5.20); Red Cell Distribution Width 18.3 % (11.8-14.3); White Blood Cell 8.9 10^3/uL (4.4-10.8)
[2023-10-03 07:43] LABS: Alanine Aminotransferase 22 U/L (7-40); Alkaline Phosphatase 98 U/L (46-116); Anion Gap 8 (5-15); BUN/Creatinine Ratio 13.6 (10.0-20.0); Blood Urea Nitrogen 29 mg/dL (9-23); Calcium 8.9 mg/dL (8.5-10.1); Carbon Dioxide 18 mmol/L (20-30); Chloride 101 mmol/L (98-107); Glucose 107 mg/dL (74-106); Potassium 3.6 mmol/L (3.5-5.1); Sodium 127 mmol/L (136-145)
[2023-10-03 07:44] LABS: Albumin 3.3 g/dL (3.2-4.8); Aspartate Aminotransferase 23 U/L (13-40); Bilirubin, Total 0.6 mg/dL (0.2-1.0); Total Protein 5.4 g/dL (5.7-8.2)
[2023-10-03] MEDS ORDERED: FERR325T24 PO (09:32)
[2023-10-03] MEDS ORDERED: HYDR50TA47 PO (09:34)
[2023-10-03] MEDS ORDERED: FURO40TA4 PO (09:34)
[2023-10-03 09:35] LABS: Hepatitis C Antibody Negative (Negative)
[2023-10-03] MEDS: PANTOPRAZOLE 40 MG/10 ML VIAL INJ IV SCH (09:35)
[2023-10-03] MEDS ORDERED: SITA50TA PO (09:35)
[2023-10-03] MEDS: SUCRALFATE 1 GM/10 ML ORAL SUSP PO SCH (11:04)
[2023-10-03 11:26] LABS: Hepatitis B Surface Antigen Negative (Negative)
[2023-10-03] MEDS: hydrALAZINE HCL 20 MG/ML VL IV PRN (14:51)
[2023-10-03] MEDS: diphenhdrAMINE HCL 25 MG CAP PO ONE (22:37)
[2023-10-04] VITALS (11 sets, daily range): BP systolic 127–193; BP diastolic 52–76; PULSE 52–79; RESP 18–21; TEMP 97.9–98.5; O2SAT 94–99
[2023-10-04] MEDS: cloNIDine HCL 0.1 MG TAB PO PRN (03:36)
[2023-10-04] MEDS ORDERED: NALOXONE HCL 0.4 MG/ML VIAL ONE (08:00)
[2023-10-04] MEDS ORDERED: FLUMAZENIL 0.1 MG/ML INJ 10ML MDV IV ONE (08:01)
[2023-10-04] MEDS ORDERED: SODIUM CHLORIDE LOCK 10 ML ONE (08:01)
[2023-10-04] MEDS: LIDOCAINE VISCOUS 2% 15ML UD ONE (10:04)
[2023-10-04] MEDS: MIDAZOLAM HCL 5 MG/ML-1ML VIAL ONE (10:06)
[2023-10-04] MEDS: diphenhdrAMINE HCL 50 MG/1 ML VL ONE (10:06)
[2023-10-04] MEDS: fentaNYL CITRATE 100 MCG/2 ML VL ONE (10:06)
[2023-10-04] MEDS ORDERED: PANT40TA2 PO (11:14)
== END 2023-10-04 20:01 | disposition home or self-care (01) | DRG 368 ==
LOC: ER 21:48 → TELE 23:57 → TELE-WESTW 10-03 03:10
PROVIDERS: ADMIT Internal Medicine; ATTEND Internal Medicine
PROC: 30233N1 Transfusion of Nonautologous Red Blood Cells into Peripheral Vein, Percutaneous Approach (ICD-10-PCS; 2023-10-03)
PROC: 0DB68ZX Excision of Stomach, Via Natural or Artificial Opening Endoscopic, Diagnostic (ICD-10-PCS; 2023-10-04)
PROC: 0DB48ZX Excision of Esophagogastric Junction, Via Natural or Artificial Opening Endoscopic, Diagnostic (ICD-10-PCS; 2023-10-04)
PROC: 0DB98ZX Excision of Duodenum, Via Natural or Artificial Opening Endoscopic, Diagnostic (ICD-10-PCS; principal; 2023-10-04 09:55)
DX: K20.91 Esophagitis, unspecified with bleeding (principal); K25.4 Chronic or unspecified gastric ulcer with hemorrhage; K29.71 Gastritis, unspecified, with bleeding; I13.0 Hypertensive heart and chronic kidney disease with heart failure and stage 1 through stage 4 chronic kidney disease, or unspecified chronic kidney disease; N17.9 Acute kidney failure, unspecified; I50.22 Chronic systolic (congestive) heart failure; D50.0 Iron deficiency anemia secondary to blood loss (chronic); I16.0 Hypertensive urgency; K44.9 Diaphragmatic hernia without obstruction or gangrene; I25.10 Atherosclerotic heart disease of native coronary artery without angina pectoris; E78.00 Pure hypercholesterolemia, unspecified; I44.7 Left bundle-branch block, unspecified; E11.22 Type 2 diabetes mellitus with diabetic chronic kidney disease; N18.9 Chronic kidney disease, unspecified; Z79.899 Other long term (current) drug therapy; Z82.49 Family history of ischemic heart disease and other diseases of the circulatory system; Z83.3 Family history of diabetes mellitus; Z91.199 Patient's noncompliance with other medical treatment and regimen due to unspecified reason; Z79.4 Long term (current) use of insulin; Z79.82 Long term (current) use of aspirin
CPT/HCPCS: 36415; 43239; 80053; 82140; 82962; 85025; 85610; 85730; 86803; 86850; 86900; 86901; 86920; 87340; 93005; C9113; G0378; J1815; J2250

== ENCOUNTER 2024-01-27 01:24 | Emergency (ER) | payer OTHER, MEDICAID ==
[~2024-01-27] VITALS: Ht 167.6 cm; Wt 80.0 kg
[~2024-01-27 01:24] MED LIST changes: -FER325T PO; +FERR325T24 PO; -FUR20T PO; +FURO40TA4 PO; -GLIP10TA9 PO; -HYDR25TA87 PO; +HYDR50TA47 PO; -OMEP-434 PO; +PANT40TA2 PO; +SITA50TA PO
[2024-01-27 01:42] VITALS: BP 151/52; PULSE 64; RESP 18; O2SAT 98
[2024-01-27] MEDS ORDERED: HYDR-3682 PO (03:33)
[2024-01-27] MEDS ORDERED: PER60TP TOP (03:33)
== END 2024-01-27 03:53 | disposition home or self-care (01) ==
LOC: ER 01:24
DX: B86 Scabies (principal); I11.0 Hypertensive heart disease with heart failure; I50.9 Heart failure, unspecified; E11.9 Type 2 diabetes mellitus without complications; I25.10 Atherosclerotic heart disease of native coronary artery without angina pectoris; E78.5 Hyperlipidemia, unspecified; Z98.890 Other specified postprocedural states; Z79.899 Other long term (current) drug therapy; Z88.6 Allergy status to analgesic agent; Z88.8 Allergy status to other drugs, medicaments and biological substances

== ENCOUNTER 2024-02-26 19:26 | Inpatient (IN) | payer OTHER, MEDICAID ==
[~2024-02-26] VITALS: Ht 167.6 cm; Wt 84.0 kg
[~2024-02-26 19:26] MED LIST changes: +HYDR-3682 PO; +PER60TP TOP
[2024-02-26 22:15] LABS: COVID19 ANTIGEN SOFIA FIA NEGATIVE (NEGATIVE); Rapid Influenza A Negative (Negative); Rapid Influenza B Negative (Negative)
[2024-02-26 23:19] LABS: Basophils # (auto) 0.1 10 ^3/uL (0-0.2); Basophils % (auto) 0.6 % (0.0-2.0); Eosinophils # (auto) 0 10 ^3/uL (0-0.8); Eosinophils % (auto) 0.2 % (0.0-7.0); Hematocrit 20.6 % (36.0-46.0); Lymphocytes # (auto) 1.1 10 ^3/uL (0.4-5.4); Lymphocytes % (auto) 6.7 % (10.0-50.0); Mean Corpuscular Hemoglobin 20.8 pg (28.0-32.0); Mean Corpuscular Hgb Conc. 31.4 g/dL (32.0-36.0); Mean Corpuscular Volume 66.1 fL (80.0-100.0); Monocytes # (auto) 0.9 10 ^3/uL (0-1.3); Monocytes % (auto) 5.4 % (0.0-12.0); Neutrophils # (auto) 13.7 10 ^3/uL (1.6-8.6); Neutrophils % (auto) 87.1 % (37.0-80.0); Nucleated Red Blood Cells % 0.8 %; Platelet Count (auto) 682 10^3/uL (140-450); Red Blood Cells 3.11 10^6/uL (4.0-5.20); Red Cell Distribution Width 19.9 % (11.8-14.3); White Blood Cell 15.7 10^3/uL (4.4-10.8)
[2024-02-26] MEDS: ALBUTEROL SULF 2.5 MG/0.5ML(0.5%) NEB SOLN NEB ONE (23:22)
[2024-02-26 23:24] LABS: Hemoglobin 6.5 g/dL (12.2-16.2)
[2024-02-26 23:34] LABS: Alanine Aminotransferase 17 U/L (7-40); Albumin 3.8 g/dL (3.2-4.8); Alkaline Phosphatase 116 U/L (46-116); Anion Gap 8 (5-15); Aspartate Aminotransferase 25 U/L (13-40); BUN/Creatinine Ratio 10.2 (10.0-20.0); Bilirubin, Total 0.7 mg/dL (0.2-1.0); Blood Urea Nitrogen 20 mg/dL (9-23); Calcium 8.7 mg/dL (8.7-10.4); Carbon Dioxide 17 mmol/L (20-31); Chloride 99 mmol/L (98-107); Glucose 155 mg/dL (74-106); Potassium 4.5 mmol/L (3.5-5.1); Sodium 124 mmol/L (136-145); Total Protein 6.3 g/dL (5.7-8.2)
[2024-02-27] VITALS (18 sets, daily range): BP systolic 138–153; BP diastolic 63–85; PULSE 59–77; RESP 12–24; TEMP 97.7–98.7; O2SAT 95–100
[2024-02-27 00:29] LABS: Anisocytosis Slight; Hypochromia Marked; Large Platelets FEW; Platelet Estimate Increased
[2024-02-27] MEDS: SODIUM CHLORIDE 0.9% 1,000 ML IV ONE (02:36)
[2024-02-27] MEDS ORDERED: ONDANSETRON HCL 4 MG/2 ML VIAL IV PRN (06:00)
[2024-02-27] MEDS ORDERED: ACETAMINOPHEN 325 MG TAB PO PRN (06:00)
[2024-02-27] MEDS ORDERED: DEXTROSE (50%) 50ML SYRG IV PRN (06:00)
[2024-02-27] MEDS: PANTOPRAZOLE 40 MG TAB PO SCH (06:24)
[2024-02-27] MEDS: ALBUTEROL SULF 2.5 MG/0.5ML(0.5%) NEB SOLN NEB PRN (06:58)
[2024-02-27] MEDS: InsuLIN REG 1unit/0.01ml Soln (100units/ml) SC SCH (08:21)
[2024-02-27] MEDS: FUROSEMIDE 20 MG/2 ML VIAL IV SCH (08:23)
[2024-02-27] MEDS: ACCU-CHEK COMFORT CURVE STRIP VI SCH (08:23)
[2024-02-27] MEDS ORDERED: FUROSEMIDE 40 MG TAB PO SCH (10:00)
[2024-02-27] MEDS: EMPAGLIFLOZIN 10 MG TAB PO SCH (10:17)
[2024-02-27] MEDS: METOPROLOL TARTRATE 50 MG TAB PO SCH (10:17)
[2024-02-27 15:20] LABS: Basophils # (auto) 0.1 10 ^3/uL (0-0.2); Eosinophils # (auto) 0.1 10 ^3/uL (0-0.8); Hematocrit 29.7 % (36.0-46.0); Hemoglobin 9.3 g/dL (12.2-16.2); Red Blood Cells 4.12 10^6/uL (4.0-5.20); White Blood Cell 12.7 10^3/uL (4.4-10.8)
[2024-02-27 15:22] LABS: Basophils % (auto) 0.8 % (0.0-2.0); Lymphocytes # (auto) 0.9 10 ^3/uL (0.4-5.4); Lymphocytes % (auto) 7.5 % (10.0-50.0); Mean Corpuscular Hemoglobin 22.7 pg (28.0-32.0); Mean Corpuscular Hgb Conc. 31.4 g/dL (32.0-36.0); Mean Corpuscular Volume 72.2 fL (80.0-100.0); Monocytes # (auto) 0.9 10 ^3/uL (0-1.3); Monocytes % (auto) 6.8 % (0.0-12.0); Neutrophils # (auto) 10.7 10 ^3/uL (1.6-8.6); Neutrophils % (auto) 83.9 % (37.0-80.0); Platelet Count (auto) 568 10^3/uL (140-450)
[2024-02-27 15:23] LABS: Nucleated Red Blood Cells % 3.3 %; Red Cell Distribution Width 22.4 % (11.8-14.3)
[2024-02-27 19:28] LABS: Urine Bacteria FEW /hpf (None Seen); Urine Blood 1+ /uL (Negative); Urine Clarity Clear (Clear); Urine Color Light-Yellow (Yellow); Urine Protein, UAD 3+ (Negative); Urine Specific Gravity 1.017 (1.001-1.035); Urine Urobilinogen Normal (Negative); Urine WBC 10 /hpf (0 - 5)
[2024-02-28] VITALS (7 sets, daily range): BP systolic 141–165; BP diastolic 60–79; PULSE 57–71; RESP 17–18; TEMP 36.5; O2SAT 94–100
[2024-02-28] MEDS: cloNIDine HCL 0.1 MG TAB PO PRN (02:18)
[2024-02-28 08:11] LABS: Basophils # (auto) 0.1 10 ^3/uL (0-0.2); Eosinophils # (auto) 0.4 10 ^3/uL (0-0.8); Hemoglobin 8.8 g/dL (12.2-16.2); Lymphocytes # (auto) 1.4 10 ^3/uL (0.4-5.4); White Blood Cell 10.8 10^3/uL (4.4-10.8)
[2024-02-28 08:22] LABS: Basophils % (auto) 1.2 % (0.0-2.0); Eosinophils % (auto) 3.5 % (0.0-7.0); Hematocrit 26.6 % (36.0-46.0); Lymphocytes % (auto) 13.3 % (10.0-50.0); Mean Corpuscular Hemoglobin 23.2 pg (28.0-32.0); Mean Corpuscular Hgb Conc. 33.1 g/dL (32.0-36.0); Mean Corpuscular Volume 70.2 fL (80.0-100.0); Monocytes # (auto) 0.7 10 ^3/uL (0-1.3); Monocytes % (auto) 6.7 % (0.0-12.0); Neutrophils # (auto) 8.1 10 ^3/uL (1.6-8.6); Neutrophils % (auto) 75.3 % (37.0-80.0); Nucleated Red Blood Cells % 1.7 %; Platelet Count (auto) 511 10^3/uL (140-450); Red Blood Cells 3.79 10^6/uL (4.0-5.20); Red Cell Distribution Width 22.5 % (11.8-14.3)
[2024-02-28 08:55] LABS: % Iron Saturation 5.2 % (15-50)
[2024-02-28] MEDS ORDERED: PERMETHRIN 5 % TOPICAL CREAM 60GM TOP ONE (09:00)
[2024-02-28] MEDS ORDERED: PER60TP TOP (09:10)
[2024-02-28] MEDS ORDERED: FERR325T24 PO (09:10)
[2024-02-28] MEDS ORDERED: [UNRECOGNIZED DRUG - CODE] IN (09:55)
[2024-02-28] MEDS: METOPROLOL SUCCINATE XL 50 MG TAB PO SCH (10:00)
[2024-02-28] MEDS: hydrALAZINE HCL 25 MG TAB PO ONE (10:42)
[2024-03-02 09:14] LABS: Hepatitis B Surface Antigen Negative (Negative)
[2024-03-02 09:35] LABS: Hepatitis C Antibody Negative (Negative)
== END 2024-02-28 13:35 | disposition home or self-care (01) | DRG 812 ==
LOC: ER 19:26 → OVERFLOW 02-27 06:06 → EAST 02-27 06:06 → OVERFLOW 02-27 13:49 → EAST 02-27 18:07
PROVIDERS: ADMIT Nurse Practitioner; ATTEND Student in an Organized Health Care Education/Training Program
PROC: 30233N1 Transfusion of Nonautologous Red Blood Cells into Peripheral Vein, Percutaneous Approach (ICD-10-PCS; principal; 2024-02-27)
DX: D50.9 Iron deficiency anemia, unspecified (principal); E87.1 Hypo-osmolality and hyponatremia; I13.0 Hypertensive heart and chronic kidney disease with heart failure and stage 1 through stage 4 chronic kidney disease, or unspecified chronic kidney disease; E87.20 Acidosis, unspecified; I50.32 Chronic diastolic (congestive) heart failure; B86 Scabies; E11.22 Type 2 diabetes mellitus with diabetic chronic kidney disease; J06.9 Acute upper respiratory infection, unspecified; K29.70 Gastritis, unspecified, without bleeding; N18.30 Chronic kidney disease, stage 3 unspecified; R04.0 Epistaxis; Z20.822 Contact with and (suspected) exposure to COVID-19; I25.10 Atherosclerotic heart disease of native coronary artery without angina pectoris; E78.5 Hyperlipidemia, unspecified; R31.29 Other microscopic hematuria; Z79.84 Long term (current) use of oral hypoglycemic drugs; Z88.6 Allergy status to analgesic agent
CPT/HCPCS: 36415; 71046; 80053; 81001; 82607; 82728; 82962; 83540; 83550; 83880; 85025; 86803; 86850; 86900; 86901; 86920; 87340; 87426; 87804; 94640; 99291; G0378; J1815

== ENCOUNTER 2024-04-09 12:26 | Inpatient (IN) | payer OTHER, MEDICAID ==
[~2024-04-09] VITALS: Ht 165.1 cm
[~2024-04-09 12:26] MED LIST changes: -GLIP5TAB21 PO; +[UNRECOGNIZED DRUG - CODE] IN
--- NOTE | 2024-04-09 13:16 | ED.PDOC ---
History of Present Illness HPI Comments 68-year-old female came to the ER complaining of shortness a breath for the past week. Shortness of breath increasing day today. She does also complain of bilateral lower extremity swelling. Does have a history of hypertension diabetes CHF. Denies any cardiac event. She states that she does take Lasix without any help. Denies any other symptoms. Chief Complaint: Shortness of Breath Time Seen by MD: 13:04 Primary Care Provider: ROSARIO Reviewed Notes: Nurses Notes, Medications, Allergies Allergies: Coded Allergies: Ibuprofen (Verified Allergy, Unknown, 10/03/23) Home Meds Active Scripts Sodium Chloride (NASAL MIST) 0.9 % Aer, 1 % IN 5XD PRN for 30 Days, #2 AER 2 Refills Prov:LIN MADRIGAL MD 02/28/24 Permethrin (Elimite) 5 % Cre, 1 APPLIC TOP ONCE for 1 Day, #60 GRAMS 1 Refill Apply cream to entire body from head to toe in between feet and hand weddings leave on for 8-14 hours and then shower off. A repeat in 14 days. Prov:LIN MADRIGAL MD 02/28/24 Ferrous Sulfate (Ferrous Sulfate) 325 Mg Tab, 1 TAB PO EVERY OTHER DAY for 30 Days, #15 TAB Prov:LIN MADRIGAL MD 02/28/24 Hydroxyzine Hcl (Hydroxyzine Hcl) 25 Mg Tab, 1 TAB PO HS, #30 TAB 1-2 tabs at night as needed for itching. Do not drive or drink alcohol on medication. Prov:BERHANE MATT CAN PILER 01/27/24 Pantoprazole Sodium Sesquihydr (Protonix) 40 Mg Tab, 40 MG PO DAILY, #30 TAB 5 Refills Prov:RUFINO REARDON MD 10/04/23 Ergocalciferol (VITAMIN D 95221 UNIT) 50,000 [place], [address] UNIT PO Q7D for 12 Days, #12 CAP Prov:MABEL GUZMAN MD 01/11/23 Empagliflozin (Jardiance) 10 Mg Tab, 10 MG PO QAM for 30 Days, #30 TAB Prov:MABEL GUZMAN MD 01/11/23 Reported Medications Sitagliptin Phosphate (Januvia) 50 Mg Tab, 1 TAB PO DAILY 10/03/23 Hydralazine Hcl (Hydralazine Hcl) 50 Mg Tab, 100 MG PO BID 10/03/23 Furosemide (Furosemide) 40 Mg Tab, 1 TAB PO DAILY 10/03/23 Finerenone (Kerendia) 10 Mg Tab, 1 TAB PO DAILY 10/01/23 Metoprolol Succinate (Metoprolol Succinate Er) 100 Mg Tab, 1 TAB PO DAILY 10/01/23 Losartan Potassium (Losartan Potassium) 100 Mg Tab, 100 MG PO DAILY for 30 Days, MG 07/12/21 Information Source: Patient Mode of Arrival: Ambulatory Severity: Moderate Timing: Days Duration: Since onset Past Medical History PAST MEDICAL HISTORY: Anemia, CAD, CHF, DM, High Lipids, HTN Surgical History: , Hernia Repair VINEGAR MAKER 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 VINEGAR MAKER History Family History Family History: No family hx of Cancer, No family hx of DM, Family hx of heart sean Social History Smoker: Non-Smoker Alcohol: Denies ETOH Use Drugs: Denies Drug Use Lives In: Home Constitutional: denies: chills, diaphoresis, fatigue, fever, malaise, sweats, w eakness, others EENTM: denies: blurred vision, double vision, ear bleeding, ear discharge, ear drainage, ear pain, ear ringing, eye pain, eye redness, hearing loss, mouth pain, mouth swelling, nasal discharge, nose bleeding, nose congestion, nose pain, photophobia, tearing, throat pain, throat swelling, voice changes, others Respiratory: reports: shortness of breath; denies: cough, hemoptysis, orthopnea, SOB at rest, SOB with excertion, stridor, wheezing, others Cardiovascular: denies: chest pain, dizzy spells, diaphoresis, Dyspnea on exertion, edema, irregular heart beat, left arm pain, lightheadedness, palpitations, PND, syncope, others Gastrointestinal: denies: abdomen distended, abdominal pain, blood streaked bowels, constipated, diarrhea, dysphagia, difficulty swallowing, hematemesis, melena, nausea, poor appetite, poor fluid intake, rectal bleeding, rectal pain, vomiting, others Genitourinary: denies: abnormal vagina bleeding, burning, dyspareunia, dysuria, flank pain, frequency, hematuria, incontinence, pain, , vagina discharge, urgency, others Neurological: denies: dizziness, fainting, headache, left sided numbness, left sided weakness, numbness, paresthesia, pre-existing deficit, right sided numbness, right sided weakness, seizure, speech problems, tingling, tremors, weakness, others Musculoskeletal: denies: back pain, gout, joint pain, joint swelling, muscle pain, muscle stiffness, neck pain, others Integumetry: denies: bruises, change in color, change in hair/nails, dryness, laceration, lesions, lumps, rash, wounds, others Allergic/Immunocompromised: denies: Difficulty Healing, Frequent Infections, Hives, Itching, others Endocrine: denies: excessive hunger, excessive sweating, excessive thirst, excessive urination, flushing, intolerance to cold, intolerance to heat, unexplained weight gain, unexplained weight loss, others Psychiatric: denies: anxiety, bipolar disorder, depression, hopeless, panic disorder, schizophrenia, sleepless, suicidal, others Physical Exam General Appearance: Moderate Distress HEENT: Scleral Icterus (L), Scleral Icterus (R) Neck: Full Range of Motion, Non-Tender, Normal, Normal Inspection Respiratory: Chest Non-Tender, Lungs Clear, No Accessory Muscle Use, No Respiratory Distress, Normal Breath Sounds Cardiovascular: No Edema, No JVD, No Murmur, No Gallop, Normal Peripheral Pulses, Regular Rate/Rhythm Breast Exam: Deferred Gastrointestinal: No Organomegaly, Non Tender, No Pulsatile Mass, Normal Bowel Sounds, Soft Genitalia: Deferred Pelvic: Deferred Rectal: Deferred Extremities: Swelling (Bilateral lower extremity) Musculoskeletal : Apperance: Normal Neurologic: Alert, experimental display builder II-XII nml as Tested, No Motor Deficits, Normal Affect, Normal Mood, No Sensory Deficits Cerebellar Function: NOT DONE Reflexes: NOT DONE Skin: Pallor Peripheral Pulses: 3+ Radial (R), 3+ Radial (L) Lymphatic: No Adenopathy Was a procedure done? Was a procedure done?: No Differential Dx Considerations may include: CHF Electrolyte imbalance X-Ray, Labs, Meds, VS Vital Signs Date Time Temp Pulse Resp B/P (MAP) Pulse Ox O2 Delivery O2 Flow Rate FiO2 04/09/24 13:03 90 04/09/24 12:59 98.0 97 18 149/69 (95) 98 Lab Test 04/09/24 14:33 04/09/24 13:40 Range/Units Troponin I High Sensitivity Pending 19 </=34 ng/L White Blood Count 8.9 4.4-10.8 10^3/uL Red Blood Count 3.48 L 4.0-5.20 10^6/uL Hemoglobin 7.2 L 12.2-16.2 g/dL Hematocrit 23.2 L 36.0-46.0 % Mean Corpuscular Volume 66.7 L 80.0-100.0 fL Mean Corpuscular Hemoglobin 20.8 L 28.0-32.0 pg Mean Corpuscular Hemoglobin Concent 31.2 L 32.0-36.0 g/dL Red Cell Distribution Width 23.4 H 11.8-14.3 % Platelet Count 553 H 140-450 10^3/uL Mean Platelet Volume 6.5 L 6.9-10.8 fL Neutrophils (%) (Auto) 83.2 H 37.0-80.0 % Lymphocytes (%) (Auto) 6.0 L 10.0-50.0 % Monocytes (%) (Auto) 7.2 0.0-12.0 % Eosinophils (%) (Auto) 2.1 0.0-7.0 % Basophils (%) (Auto) 1.5 0.0-2.0 % Neutrophils # (Auto) 7.4 1.6-8.6 10 ^3/uL Lymphocytes # (Auto) 0.5 0.4-5.4 10 ^3/uL Monocytes # (Auto) 0.6 0-1.3 10 ^3/uL Eosinophils # (Auto) 0.2 0-0.8 10 ^3/uL Basophils # (Auto) 0.1 0-0.2 10 ^3/uL Nucleated Red Blood Cells 0.3 % Sodium Level 131 L 136-145 mmol/L Potassium Level 4.1 3.5-5.1 mmol/L Chloride Level 97 L 98-107 mmol/L Carbon Dioxide Level 27 20-31 mmol/L Anion Gap 7 5-15 Blood Urea Nitrogen 19 9-23 mg/dL Creatinine 1.92 H 0.550-1.02 mg/dL Glomerular Filtration Rate Calc 28 >90 mL/min BUN/Creatinine Ratio 9.9 L 10.0-20.0 Serum Glucose 113 H 74-106 mg/dL Calcium Level 8.9 8.7-10.4 mg/dL B-Type Natriuretic Peptide 1787.61 0-100 pg/mL Patient alert. Has jaundice look. Possible right-sided heart failure causing CHF. Vitals stable. Bilateral lower extremity swelling. Was given Lasix. Has history of hypertension diabetes CHF. Continues to have shortness a breath. Severe anemia. Possibly need blood transfusion. Reviewed her history. Blood pressure elevated. Creatinine elevated. Explained to the patient. Continue cardiac monitoring. Chest x-ray reviewed does show CHF with pneumonitis. BNP elevated. CHEST RADIOGRAPH Indication:sob Technique: Single frontal view of the chest was obtained COMPARISON: XY CHEST PORTABLE on DOS: 10/01/23, XY CHEST PORTABLE on DOS: 07/20/23, XY CHEST PORTABLE on DOS: 01/08/23 FINDINGS: Lines and Tubes: None Lungs: Patchy bilateral airspace disease. Pleura: No effusion. No pneumothorax. Cardiomediastinal contours: Unremarkable Bones: Unremarkable IMPRESSION: Patchy bilateral airspace disease may represent viral pneumonia or pulmonary vascular congestion. Time of 1ST Reevaluation: 14:17 Reevaluation 1ST: Unchanged Patient Education/Counseling: Diagnosis, Treatment, Prognosis Family Education/Counseling: No Family Present Departure 1 Departure Time of Disposition: 14:19 Impression: Primary Impression: CHF exacerbation Qualified Codes: I50.43 - Acute on chronic combined systolic (congestive) and diastolic (congestive) heart failure Additional Impression: Pneumonitis Disposition: ADMITTED INPATIENT Admit to: Med Surg Condition: Guarded Critical Care Note Critical Care Time?: Yes (45 min-critical care time only) Stability Stability form required: No Heart Score Heart Score: Heart Score Response (Comments) Value History Slightly Suspicious 0 EKG Normal 0 Age >65 2 Risk Factors >3 or Hx ASHD 2 Troponin Normal limit 0 Total 4 I personally scribed for BHARATHI BAILEY MD ([email or web address]) on 04/09/24 at 15:00. Electronically submitted by Alyce Miller ([facility]). BHARATHI BAILEY MD Apr 09, 2024 13:16
--- NOTE | 2024-04-09 13:40 | DVH ---
CHEST RADIOGRAPH Indication:sob Technique: Single frontal view of the chest was obtained COMPARISON: XY CHEST PORTABLE on DOS: 10/01/23, XY CHEST PORTABLE on DOS: 07/20/23, XY CHEST PORTABLE on DOS: 01/08/23 FINDINGS: Lines and Tubes: None Lungs: Patchy bilateral airspace disease. Pleura: No effusion. No pneumothorax. Cardiomediastinal contours: Unremarkable Bones: Unremarkable IMPRESSION: Patchy bilateral airspace disease may represent viral pneumonia or pulmonary vascular congestion.
[2024-04-09 13:59] LABS: Basophils # (auto) 0.1 10 ^3/uL (0-0.2); Eosinophils # (auto) 0.2 10 ^3/uL (0-0.8); Hemoglobin 7.2 g/dL (12.2-16.2); Monocytes # (auto) 0.6 10 ^3/uL (0-1.3)
[2024-04-09 14:02] LABS: Basophils % (auto) 1.5 % (0.0-2.0); Eosinophils % (auto) 2.1 % (0.0-7.0); Hematocrit 23.2 % (36.0-46.0); Lymphocytes # (auto) 0.5 10 ^3/uL (0.4-5.4); Mean Corpuscular Hemoglobin 20.8 pg (28.0-32.0); Mean Corpuscular Hgb Conc. 31.2 g/dL (32.0-36.0); Mean Corpuscular Volume 66.7 fL (80.0-100.0); Monocytes % (auto) 7.2 % (0.0-12.0); Neutrophils # (auto) 7.4 10 ^3/uL (1.6-8.6); Neutrophils % (auto) 83.2 % (37.0-80.0); Nucleated Red Blood Cells % 0.3 %; Platelet Count (auto) 553 10^3/uL (140-450); Red Blood Cells 3.48 10^6/uL (4.0-5.20); Red Cell Distribution Width 23.4 % (11.8-14.3); White Blood Cell 8.9 10^3/uL (4.4-10.8)
[2024-04-09 14:05] LABS: Chloride 97 mmol/L (98-107); Potassium 4.1 mmol/L (3.5-5.1); Sodium 131 mmol/L (136-145)
[2024-04-09 14:06] LABS: Anion Gap 7 (5-15); Carbon Dioxide 27 mmol/L (20-31)
[2024-04-09 14:07] LABS: Calcium 8.9 mg/dL (8.7-10.4)
[2024-04-09 14:11] LABS: BUN/Creatinine Ratio 9.9 (10.0-20.0); Blood Urea Nitrogen 19 mg/dL (9-23); Glucose 113 mg/dL (74-106)
[2024-04-09] MEDS: PIPERACILLIN-TAZOB 3.375GM 100 ML IV ONE (14:30)
[2024-04-09] MEDS: FUROSEMIDE 40 MG/4 ML VIAL IV ONE (14:30)
[2024-04-09 15:52] VITALS: PULSE 79; RESP 18; O2SAT 98
[2024-04-09] MEDS ORDERED: HYDROcodone-ACET 5/325MG TAB PO PRN (20:30)
[2024-04-09] MEDS ORDERED: NITROGLYCERIN 0.4 MG SL TAB SL PRN (20:30)
[2024-04-09] MEDS ORDERED: MORPHINE SULFATE INJ 2 MG/ml SYRG IV PRN (20:30)
--- NOTE | 2024-04-09 22:09 | DVHHPRES ---
History of Present Illness Resident Creating Document: DONTAE CRYSTAL RESIDENT History of Present Illness This is a 68-year-old female with past medical history of hypertension, hyperlipidemia, type 2 DM, CHF, CAD, CKD, scabies presented to the ED with a chief complaint of shortness of breath and bilateral leg swelling for 1 week prior to this admission. Patient states that leg swelling and shortness of breath started 1 weeks ago but getting worse day by day and associated with dry cough and runny nose that prompted this visit. She also mentions that she does take Lasix in home but it was not helping her for last 1 week in terms of breathing and leg swelling. She denies any change in her diet or eating any salty food recently. She also denies chest pain, dizziness, abdominal pain, nausea, vomiting or any change in bowel and bladder habit. PCP: Dr. Medley Personnel Assistant: Dr. Hutchinson Past Medical History Hypertension, hyperlipidemia, type 2 DM, CHF, CAD, CKD, scabies Past Surgical History Family History History of heart failure in the family Smoke: No ALCOHOL: none Drugs: None Lives: Alone Review of Systems Constitutional: No: Fever, Chills, Sweats, Weakness, Malaise, Other Eyes: No: Pain, Vision change, Conjunctivae inflammation, Eyelid inflammation, Other, Redness ENT: No: Ear pain, Ear discharge, Nose pain, Nose discharge, Nose congestion, Mouth pain, Mouth swelling, Throat pain, Throat swelling, Other Respiratory: Cough, Dry, Shortness of breath; No: SOB with excertion, Wheezing, Hemoptysis, Pleuritic Pain, Sputum, Wheezing, Other Cardiovascular: Edema; No: Chest Pain, Palpitations, Orthopnea, Paroxysmal Noc. Dyspnea, Lt Headedness, Other Gastrointestinal: No: Nausea, Vomiting, Abdominal Pain, Diarrhea, Constipation, Melena, Hematochezia, Other Genitourinary: No Dysuria, No Frequency, No Incontinence, No Hematuria, No Retention, No Other Musculoskeletal: No: other, neck pain, shoulder pain, arm pain, back pain, hand pain, leg pain, foot pain Skin: No: Rash, Lesions, Jaundice, Bruising, Other Neurological: No: Weakness, Numbness, Incoordination, Change in speech, Confusion, Seizures, Other Allergies: Coded Allergies: Ibuprofen (Verified Allergy, Unknown, 10/03/23) Medications Current Medications Medications Dose Ordered Sig/Yesenia Route Start Time Stop Time Status Last Admin Dose Admin Sodium Chloride 10 ml Q8HR IV 04/09/24 22:00 Acetaminophen/ Hydrocodone Bitart 1 tab Q4HP PRN PO 04/09/24 20:30 Ondansetron HCl 4 mg Q4HP PRN IV 04/09/24 20:30 Nitroglycerin 0.4 mg Q5MINP PRN SL 04/09/24 20:30 Morphine Sulfate 2 mg Q30M PRN IV 04/09/24 20:30 Furosemide 40 mg BIDD IV 04/10/24 06:00 Pantoprazole Sodium 40 mg DAILY PO 04/10/24 10:00 Ferrous Sulfate 325 mg EVERY OTHER DAY PO 04/09/24 22:15 Hydralazine HCl 100 mg BID PO 04/10/24 10:00 Losartan Potassium 100 mg DAILY PO 04/10/24 10:00 Metoprolol Succinate 100 mg DAILY PO 04/10/24 10:00 Exam Vital Signs Vital Signs Date Time Temp Pulse Resp B/P (MAP) Pulse Ox O2 Delivery O2 Flow Rate FiO2 04/09/24 15:52 98.3 83 18 174/80 (111) 98 98.3 04/09/24 15:52 Room Air* 0 21 Exam Physical examination: General Appearance: Alert, Oriented X3, Cooperative, No acute distress HEENT: Atraumatic, PERRLA, EOMI, Mucous membrane moist/pink Respiratory: Bilateral crackles in both lung field Cardiovascular: Regular rate, Normal S1, Normal S2, No murmurs, no chest wall tenderness Abdominal: Normal bowel sounds, Soft, No tenderness, No hepatospenomegaly, No masses Extremities: Edema++, No clubbing, No cyanosis, Normal pulses, No tenderness/swelling Skin: No rashes, No breakdown, No significant lesion Neuro: Normal gait, Normal speech, Strength at 5/5 X4 ext, Normal tone, Sensation intact, grossly intact cranial nerves. Psych/Mental Status: Mental status NL, Mood NL Labs/Xrays Labs Test 04/09/24 18:31 04/09/24 13:40 Range/Units Troponin I High Sensitivity 21 </=34 ng/L White Blood Count 8.9 4.4-10.8 10^3/uL Red Blood Count 3.48 L 4.0-5.20 10^6/uL Hemoglobin 7.2 L 12.2-16.2 g/dL Hematocrit 23.2 L 36.0-46.0 % Mean Corpuscular Volume 66.7 L 80.0-100.0 fL Mean Corpuscular Hemoglobin 20.8 L 28.0-32.0 pg Mean Corpuscular Hemoglobin Concent 31.2 L 32.0-36.0 g/dL Red Cell Distribution Width 23.4 H 11.8-14.3 % Platelet Count 553 H 140-450 10^3/uL Mean Platelet Volume 6.5 L 6.9-10.8 fL Neutrophils (%) (Auto) 83.2 H 37.0-80.0 % Lymphocytes (%) (Auto) 6.0 L 10.0-50.0 % Monocytes (%) (Auto) 7.2 0.0-12.0 % Eosinophils (%) (Auto) 2.1 0.0-7.0 % Basophils (%) (Auto) 1.5 0.0-2.0 % Neutrophils # (Auto) 7.4 1.6-8.6 10 ^3/uL Lymphocytes # (Auto) 0.5 0.4-5.4 10 ^3/uL Monocytes # (Auto) 0.6 0-1.3 10 ^3/uL Eosinophils # (Auto) 0.2 0-0.8 10 ^3/uL Basophils # (Auto) 0.1 0-0.2 10 ^3/uL Nucleated Red Blood Cells 0.3 % Sodium Level 131 L 136-145 mmol/L Potassium Level 4.1 3.5-5.1 mmol/L Chloride Level 97 L 98-107 mmol/L Carbon Dioxide Level 27 20-31 mmol/L Anion Gap 7 5-15 Blood Urea Nitrogen 19 9-23 mg/dL Creatinine 1.92 H 0.550-1.02 mg/dL Glomerular Filtration Rate Calc 28 >90 mL/min BUN/Creatinine Ratio 9.9 L 10.0-20.0 Serum Glucose 113 H 74-106 mg/dL Calcium Level 8.9 8.7-10.4 mg/dL B-Type Natriuretic Peptide 1787.61 0-100 pg/mL Assessment/Plan Assessment/Plan Assessment and plan: # Acute exacerbation of chronic diastolic heart failure # Dilutional hyponatremia due to above - patient is on room air - Echo go on 0 07/20 revealed ejection fraction 55% with moderate diastolic abnormality - Chest x-ray revealed pulmonary vascular congestion - IV Lasix 40 mg b.i.d. - Continue metoprolol XL 100 mg p.o. daily # Hypertensive emergency - IV hydralazine 10 mg q.6 p.r.n. - Losartan 100 mg p.o. daily # Chronic iron-deficiency anemia likely due to CKD - Iron panel revealed low iron - EGD on 10/17 revealed mild gastritis with few gastric erosions and erosive esophagitis - Continue ferrous sulfate 325 mg p.o. every other day. # Gastritis - Continue protonix 40 mg p.o. daily. # CKD stage IV - Strict I&O - Avoid nephrotoxic medication - Consulted nephrology # Vitamin D deficiency - Vitamin D 10047 units Q 7D # DVT prophylaxis - Heparin 5000 units SC b.i.d. Goal of care discussed with the patient for more than 20 minutes full code Plan of treatment discussed with Dr. Gaxiola Plan discussed with: Patient, Other My Orders Orders - DONTAE CYRSTAL RESIDENT Procedure Category Date Status Time Admit ADMIT 04/09/24 Transmitted 20:21 Code Status CODE 04/09/24 Transmitted 20:21 Sodium Chloride Lock PHA 04/09/24 In Process (Saline Lock Ns) 22:00 Oxygen Per Hour RT 04/09/24 Transmitted 20:21 Hydrocodone-Acet PHA 04/09/24 In Process 5/325mg Tab ([place] 20:30 Ondansetron Hcl PHA 04/09/24 In Process (Zofran) 20:30 Fall Risk Precautions ASIF 04/09/[address] 20:21 Complete Blood Count LAB 04/10/24 Verified 04:00 Comprehensive LAB 04/10/24 Verified Metabolic Panel 04:00 Cardiac DIET 04/10/24 Transmitted Diet-2gna,Lofat,Lochol Breakfast Pt Request For Service PT 04/09/24 Logged 20:21 Nitroglycerin PHA 04/09/24 In Process Sublingual (Ntrostat 20:30 Morphine Sulfate PHA 04/09/24 In Process Injection 20:30 Oxygen By Nasal RT 04/09/24 Transmitted Cannula 20:21 Stat Ekg For Chest ASIF 04/09/24 In Process Pain 20:21 Notify Of Changes ASIF 04/09/24 In Process From Base 20:21 [employer] Mill Supervisor For [facility] 04/09/24 In Process 24 Hours 20:21 Emergency Dysrhythmia [facility] 04/09/24 In Process Protocol 20:21 Rhythm Strips Once [facility] 04/09/24 In Process Every Shift 20:21 Furosemide Injection PHA 04/10/24 In Process (Lasix Injection) 06:00 Pantoprazole Tablet PHA 04/10/24 In Process (Protonix Tablet) 10:00 Ferrous Sulfate Tablet PHA 04/09/24 In Process 22:15 Losartan Tablet PHA 04/10/24 In Process (Cozaar Tablet) 10:00 Metoprolol Xl PHA 04/10/24 In Process Succinate (Toprol Xl) 10:00 Hemoglobin A1c LAB 04/09/24 Logged 21:50 Thyroid Stimulating LAB 04/09/24 Logged Hormone 21:50 Vitamin B12 LAB 04/09/24 Logged 21:50 Vitamin D, 25-Hydroxy LAB 04/09/24 Logged 21:50 Urinalysis LAB 04/09/24 Uncollected 21:52 Hydralazine Hcl PHA 04/10/24 In Process Tablet (Apresoline 10:00 Date of Service: Apr 09, 2024 Billing Provider: MABEL GAXIOLA MD Common Visit Codes: 11846-UZFEBBI INP/OBS CARE (HIGH) Secondary Visit Codes: 24102-HSFNBJAX CARE PLAN 30 MINUTES DONTAE CRYSTAL RESIDENT Apr 09, 2024 22:09 MABEL GAXIOLA MD Apr 10, 2024 17:41
[2024-04-09] MEDS ORDERED: FERROUS SULFATE 325mg EC TAB PO SCH (22:15)
[2024-04-09] MEDS: SODIUM CHLOR 0.9% PF (SALINE LOCK) 10ML VIAL/SYR IV SCH (23:25)
[2024-04-09] MEDS: hydrALAZINE HCL 20 MG/ML VL IV PRN (23:42)
[2024-04-10 01:38] VITALS: BP 167/61; PULSE 79; RESP 18; TEMP 98.4; O2SAT 96
[2024-04-10 03:05] VITALS: PULSE 85; RESP 20; O2SAT 95
[2024-04-10 04:05] LABS: Urine Bacteria FEW /hpf (None Seen); Urine Blood Negative /uL (Negative); Urine Clarity Clear (Clear); Urine Protein, UAD 2+ (Negative); Urine Specific Gravity 1.007 (1.001-1.035); Urine Urobilinogen Normal (Negative); Urine WBC 1 /hpf (0 - 5); Urine pH 7.5 (5.0-9.0)
[2024-04-10 04:08] LABS: Urine Color Straw (Yellow)
[2024-04-10] MEDS: ERGOCALCIFEROL 50,000 UNIT(1.25MG) CAP PO SCH (05:01)
[2024-04-10] MEDS: FUROSEMIDE 40 MG/4 ML VIAL IV SCH (05:52)
--- NOTE | 2024-04-10 06:27 | ECG ---
[facility] Heart Test Date: 2024-04-09 Test Time: 13:03:52 Pat Name: ALISTAIR CARDOZA Department: ED Room: [address] [place] [address] Gender: F Collar Trimmer: RONALD : 1955 Requested By: BHARATHI BAILEY Order Number: [id number] Reading MD: Measurements Intervals [place] Rate: 90 P: 66 KS: 165 QRS: -19 QRSD: 170 T: 141 QT: 429 QTc: 525 Interpretive Statements Sinus rhythm Left bundle branch block Please click the below link to view image of tracing.
[2024-04-10 06:48] LABS: Alanine Aminotransferase 11 U/L (7-40); Alkaline Phosphatase 105 U/L (46-116); Anion Gap 9 (5-15); Aspartate Aminotransferase 12 U/L (13-40); BUN/Creatinine Ratio 10.1 (10.0-20.0); Blood Urea Nitrogen 18 mg/dL (9-23); Calcium 8.9 mg/dL (8.7-10.4); Carbon Dioxide 23 mmol/L (20-31); Chloride 97 mmol/L (98-107); Glucose 116 mg/dL (74-106); Potassium 3.4 mmol/L (3.5-5.1); Sodium 129 mmol/L (136-145)
[2024-04-10 06:49] LABS: Albumin 3.5 g/dL (3.2-4.8); Total Protein 5.6 g/dL (5.7-8.2)
[2024-04-10 07:02] LABS: Basophils # (auto) 0.1 10 ^3/uL (0-0.2); Basophils % (auto) 1.2 % (0.0-2.0); Eosinophils # (auto) 0.2 10 ^3/uL (0-0.8); Neutrophils # (auto) 6.7 10 ^3/uL (1.6-8.6); White Blood Cell 8.8 10^3/uL (4.4-10.8)
[2024-04-10 07:04] LABS: Hematocrit 24.7 % (36.0-46.0); Hemoglobin 7.2 g/dL (12.2-16.2); Lymphocytes # (auto) 1.3 10 ^3/uL (0.4-5.4); Lymphocytes % (auto) 14.4 % (10.0-50.0); Mean Corpuscular Hemoglobin 19.5 pg (28.0-32.0); Mean Corpuscular Hgb Conc. 29.1 g/dL (32.0-36.0); Mean Corpuscular Volume 66.9 fL (80.0-100.0); Monocytes # (auto) 0.5 10 ^3/uL (0-1.3); Monocytes % (auto) 5.9 % (0.0-12.0); Neutrophils % (auto) 76.5 % (37.0-80.0); Nucleated Red Blood Cells % 0.2 %; Platelet Count (auto) 569 10^3/uL (140-450)
[2024-04-10 07:05] LABS: Red Cell Distribution Width 23.1 % (11.8-14.3)
[2024-04-10 07:39] VITALS: PULSE 83; RESP 18; O2SAT 96
[2024-04-10] MEDS: PERMETHRIN 5 % TOPICAL CREAM 60GM TOP ONE (08:22)
[2024-04-10] MEDS: LOSARTAN POTASSIUM 50 MG TAB PO SCH (09:31)
[2024-04-10] MEDS: PANTOPRAZOLE 40 MG TAB PO SCH (09:31)
[2024-04-10] MEDS: METOPROLOL SUCCINATE XL 50 MG TAB PO SCH (09:46)
[2024-04-10] MEDS ORDERED: hydrALAZINE HCL 25 MG TAB PO SCH (10:00)
[2024-04-10] MEDS ORDERED: HEPARIN SODIUM (PORCINE) 5000 UNITS/ML 1ML VIAL SC SCH (10:00)
--- NOTE | 2024-04-10 12:54 | DVH ---
Clinical History: R LE swelling Comparison: US BILAT LOWER DVT on DOS: 01/08/23 Technique: Duplex Doppler evaluation of the deep venous system of the right lower extremity from the common femo ral vein to the popliteal vein including color Doppler and spectral/pulsed waveform analysis was perf ormed. Findings: The common femoral vein demonstrates appropriate compressibility and waveform variability. There is compressibility/patency of the great saphenous vein at the proximal thigh. The femoral vein demonstrates appropriate compressibility and waveform variability. The deep femoral vein demonstrates appropriate compressibility and waveform variability. The popliteal vein demonstrates appropriate compressibility and waveform variability. There is normal compressibility at the tibioperoneal trunk. Impression: No right deep venous thrombosis. If clinical concern/symptoms persist or worsen, short-interval follow-up study is suggested.
[2024-04-10] MEDS: CEPHALEXIN 250 MG CAP PO SCH (13:07)
--- NOTE | 2024-04-10 14:08 | DVHPNRES ---
Progress Note Date Seen: Apr 10, 2024 Resident Creating Document: JESSICA SANTANA RESIDENT Medical Necessity Reason Pt with a Central, PICC or Fol: No Subjective Review of Systems Patient is a 68-year-old female with past medical history of heart failure with preserved ejection fraction, CKD stage 3, chronic anemia, hypertension, dyslipidemia, type 2 diabetes and recently diagnosed scabies now resolved, who came in due to bilateral lower extremity swelling. According to the patient, for the past 1 week she has been experiencing worsening bilateral lower extremity swelling along with shortness of breaths which prompted this visit to the hospital. She notes that her shortness of breath has been worsening over the last 1 week and her home dose p.o. Lasix has not helped. Past surgical history: Home medications: jardiance, furosemide, hydralazine, losartan, metoprolol succinate, protonix, sitagliptin Past Hospitalization: 02/27/24 for symptomatic anemia and received a blood transfusion Social & Personal history: lives alone. denies smoking, alcohol or use of any drugs Allergies: ibuprofen Patient seen and examined at bedside. Patient is alert and oriented to time, place person and responding to all questions. Eyes: No Pain, No Vision change, No Conjunctivae inflammation, No Eyelid inflammation, No Other, No Redness ENT: No Ear pain, No Ear discharge, No Nose pain, No Nose discharge, No Nose congestion, No Mouth pain, No Mouth swelling, No Throat pain, No Throat swelling, No Other Cardiovascular: No Chest Pain, No Palpitations, No Orthopnea, Dyspnea,Edema, No Lt Headedness, No Other Respiratory: No Cough, No Dry, Shortness of breath, SOB with exertion, No Wheezing, No Hemoptysis, No Pleuritic Pain, No Sputum, No Other Gastrointestinal: No Nausea, No Vomiting, No Abdominal Pain, No Diarrhea, No Constipation, No Melena, No Hematochezia, No Other Genitourinary: No Dysuria, No Frequency, No Incontinence, No Hematuria, No Retention, No Other Musculoskeletal: No other, No neck pain, No shoulder pain, No arm pain, No back pain, No hand pain, No leg pain, No foot pain Skin: No Rash, No Lesions, No Jaundice, No Bruising, No Other Objective vital signs Vital Sign Date Time Temp Pulse Resp B/P (MAP) Pulse Ox O2 Delivery O2 Flow Rate FiO2 04/10/24 11:30 77 16 155/76 (102) 97 04/10/24 07:39 Room Air* 0 21 04/10/24 07:39 98.1 98.1 medications Current Medications Medications Dose Ordered Sig/Yesenia Route Start Time Stop Time Status Last Admin Dose Admin Sodium Chloride 10 ml Q8HR IV 04/09/24 22:00 04/10/24 05:52 10 ML Acetaminophen/ Hydrocodone Bitart 1 tab Q4HP PRN PO 04/09/24 20:30 Ondansetron HCl 4 mg Q4HP PRN IV 04/09/24 20:30 Nitroglycerin 0.4 mg Q5MINP PRN SL 04/09/24 20:30 Morphine Sulfate 2 mg Q30M PRN IV 04/09/24 20:30 Furosemide 40 mg BIDD IV 04/10/24 06:00 04/10/24 05:52 40 MG Pantoprazole Sodium 40 mg DAILY PO 04/10/24 10:00 04/10/24 09:31 40 MG Ferrous Sulfate 325 mg EVERY OTHER DAY PO 04/09/24 22:15 Losartan Potassium 100 mg DAILY PO 04/10/24 10:00 04/10/24 09:31 100 MG Metoprolol Succinate 100 mg DAILY PO 04/10/24 10:00 04/10/24 09:46 100 MG Hydralazine HCl 10 mg Q6HR PRN IV 04/09/24 23:45 04/09/24 23:42 10 MG Ergocalciferol 50,000 unit Q7D PO 04/10/24 05:00 04/10/24 05:01 50,000 UNIT Cephalexin 500 mg BID PO 04/10/24 12:15 04/10/24 13:07 500 MG Examination General Appearance: Alert, Oriented X3, Cooperative, No acute distress HEENT: Atraumatic, PERRLA, EOMI, Mucous membrane moist/pink Respiratory: Bilateral crackles in both lung field Cardiovascular: Regular rate, Normal S1, Normal S2, No murmurs, no chest wall tenderness Abdominal: Normal bowel sounds, Soft, No tenderness, No hepatospenomegaly, No masses Extremities: Edema++, No clubbing, No cyanosis, Normal pulses, No tenderness/swelling Skin: No rashes, No breakdown, No significant lesion Lower extremity, healing ulcers from itching noted R>L Neuro: Normal gait, Normal speech, Strength at 5/5 X4 ext, Normal tone, Sensation intact, grossly intact cranial nerves. Psych/Mental Status: Mental status NL, Mood NL laboratory and microbiology Laboratory Tests 04/10/24 05:47 Test 04/10/24 05:47 Range/Units Serum Glucose 116 H 74-106 mg/dL Labs and/or images reviewed: Labs reviewed by me, Image(s) reviewed by me Problem List/Assessment/Plan Problem List/Assessment/Plan Acute on chronic heart failure with reduced ejection fraction, last echo 07/21/2023 showed ejection fraction of 55% - CXR: Patchy bilateral airspace disease may represent viral pneumonia or pulmonary vascular congestion. - IV furosemide 40 mg b.i.d. - losartan 100 mg p.o. daily, metoprolol succinate 100 mg p.o. daily - echo from 07/21/2023: Heavily calcified posterior mitral leaflet. Moderately calcified aortic valve. LVEF 55%. Moderate degree LVH and moderate degree LV diastolic dysfunction. - ordered repeat echocardiogram - consulted cardiology YOVANI, likely hemodynamically mediated/VMN on probable CKD Chronic hyponatremia, asymptomatic - we will continue to monitor - nephrology on board Type 2 diabetes, uncontrolled, HbA1c 6.1 - mild sliding scale insulin Hypertension - losartan-100 mg p.o. daily - metoprolol 100 mg p.o. daily - IV hydralazine 10 mg q.6 as needed for SBP greater than 150 Right lower extremity healing ulcers from scabies Scabies, now resolved - lower extremity Doppler: No right deep venous thrombosis - cephalexin 500 mg p.o. b.i.d. Chronic anemia, iron deficiency versus of chronic disease - ferrous sulfate 325 mg every other day - ordered stool occult blood - patient completed EGD on 10/04/2023 which showed mild gastritis with a few gastric erosions and erosive esophagitis Vitamin-D deficiency - repleted PUD prophylaxis: protonix 40mg DVT prophylaxis: SCD Goals of care: Full code, discussed for >16 minutes on 04/10/24 Plan discussed with patient Plan discussed with Dr. Velásquez Plan discussed with: Patient, Other (RN) My Orders My Orders Orders - JESSICA SANTANA RESIDENT Procedure Category Date Status Time Covid19 Antigen Xochitl LAB 04/10/24 In Process Rapid Influenza A&B LAB 04/10/24 In Process 07:01 Sequential ASIF 04/10/24 In Process Compression Device 08:47 Rt Lower Dvt US 04/10/24 Resulted 12:08 Cephalexin Capsule PHA 04/10/24 In Process (Keflex Capsule) 12:15 Consistent DIET 04/10/24 Transmitted Carb(Ccho)Diabetes Lunch Echo 2d Mode Cardiac US 04/10/24 Logged DOP 12:08 * Cardiology Consult CONS 04/10/24 Transmitted 12:08 Stool Occult Blood LAB 04/10/24 Logged 12:12 JESSICA SANTANA RESIDENT Apr 10, 2024 14:08
[2024-04-10] MEDS ORDERED: DEXTROSE (50%) 50ML SYRG IV PRN (14:15)
[2024-04-10 14:24] LABS: COVID19 ANTIGEN SOFIA FIA NEGATIVE (NEGATIVE); Rapid Influenza A Negative (Negative); Rapid Influenza B Negative (Negative)
--- NOTE | 2024-04-10 17:09 | DVHINCON2 ---
Date of service: Apr 10, 2024 Referring Physician Hospitalist Reason for Consultation Acute kidney injury History of Present Illness 68-year-old female past medical history of diabetes, chronic kidney disease stage 3, hypertension, scabies, diastolic heart failure. Patient reports multiple hospitalizations due to inability to access outpatient medical care due to scabies. She has been taking diuretics since her last hospitalization however reports that she has noticed interval worsening swelling in her lower extremities as well as shortness of breath. She was admitted due to shortness of breath and CHF. Nephrology consulted due to elevated creatinine Allergies: Coded Allergies: Ibuprofen (Verified Allergy, Unknown, 10/03/23) Home Meds Active Scripts Sodium Chloride (NASAL MIST) 0.9 % Aer, 1 % IN 5XD PRN for 30 Days, #2 AER 2 Refills Prov:LIN MADRIGAL MD 02/28/24 Permethrin (Elimite) 5 % Cre, 1 APPLIC TOP ONCE for 1 Day, #60 GRAMS 1 Refill Apply cream to entire body from head to toe in between feet and hand weddings leave on for 8-14 hours and then shower off. A repeat in 14 days. Prov:LIN MADRIGAL MD 02/28/24 Ferrous Sulfate (Ferrous Sulfate) 325 Mg Tab, 1 TAB PO EVERY OTHER DAY for 30 Days, #15 TAB Prov:LIN MADRIGAL MD 02/28/24 Hydroxyzine Hcl (Hydroxyzine Hcl) 25 Mg Tab, 1 TAB PO HS, #30 TAB 1-2 tabs at night as needed for itching. Do not drive or drink alcohol on medication. Prov:BERHANE MATT 01/27/24 Pantoprazole Sodium Sesquihydr (Protonix) 40 Mg Tab, 40 MG PO DAILY, #30 TAB 5 Refills Prov:RUFINO REARDON MD 10/04/23 Ergocalciferol (VITAMIN D 04829 UNIT) 50,000 [place], [address] UNIT PO Q7D for 12 Days, #12 CAP Prov:MABEL GUZMAN MD 01/11/23 Empagliflozin (Jardiance) 10 Mg Tab, 10 MG PO QAM for 30 Days, #30 TAB Prov:MABEL GUZMAN MD 01/11/23 Reported Medications Sitagliptin Phosphate (Januvia) 50 Mg Tab, 1 TAB PO DAILY 10/03/23 Hydralazine Hcl (Hydralazine Hcl) 50 Mg Tab, 100 MG PO BID 10/03/23 Furosemide (Furosemide) 40 Mg Tab, 1 TAB PO DAILY 10/03/23 Finerenone (Kerendia) 10 Mg Tab, 1 TAB PO DAILY 10/01/23 Metoprolol Succinate (Metoprolol Succinate Er) 100 Mg Tab, 1 TAB PO DAILY 10/01/23 Losartan Potassium (Losartan Potassium) 100 Mg Tab, 100 MG PO DAILY for 30 Days, MG 07/12/21 Current Medications Current Medications Medications (Trade) Dose Ordered Sig/Yesenia Route PRN Reason Start Time Stop Time Status Last Admin Sodium Chloride (Saline Lock Ns) 10 ml Q8HR IV 04/09/24 22:00 04/10/24 14:04 Acetaminophen/ Hydrocodone Bitart ([place] 5/325MG Tab) 1 tab Q4HP PRN PO MODERATE PAIN (4-6 PAIN SCALE) 04/09/24 20:30 Ondansetron HCl (Zofran) 4 mg Q4HP PRN IV NAUSEA / VOMITING 04/09/24 20:30 Nitroglycerin (Ntrostat Sublingual) 0.4 mg Q5MINP PRN SL FOR CHEST PAIN 04/09/24 20:30 Morphine Sulfate 2 mg Q30M PRN IV FOR CHEST PAIN 04/09/24 20:30 Furosemide (Lasix Injection) 40 mg BIDD IV 04/10/24 06:00 04/10/24 05:52 Pantoprazole Sodium (Protonix Tablet) 40 mg DAILY PO 04/10/24 10:00 04/10/24 09:31 Ferrous Sulfate 325 mg EVERY OTHER DAY PO 04/09/24 22:15 Hydralazine HCl (Apresoline Tablet) 100 mg BID PO 04/10/24 10:00 04/09/24 23:59 DC Losartan Potassium (Cozaar Tablet) 100 mg DAILY PO 04/10/24 10:00 04/10/24 09:31 Metoprolol Succinate (Toprol Xl) 100 mg DAILY PO 04/10/24 10:00 04/10/24 09:46 Hydralazine HCl (Apresoline Injection) 10 mg Q6HR PRN IV SBP >150 04/09/24 23:45 04/09/24 23:42 Heparin Sodium (Porcine) 5,000 units Q12HR SC 04/10/24 10:00 04/10/24 07:00 DC Ergocalciferol (Vitamin D 50,000 Unit) 50,000 unit Q7D PO 04/10/24 05:00 04/10/24 05:01 Cephalexin (Keflex Capsule) 500 mg BID PO 04/10/24 12:15 04/10/24 13:07 Diagnostic Test (Pha) (Accu-Chek Comfort Curve T) 1 strip ACHS 04/10/24 17:00 Insulin Human Regular (InsuLIN R) ACHS SC 04/10/24 17:00 Dextrose 50 ml UD PRN IV Blood Sugar LESS THAN 60 04/10/24 14:15 Family History: FH: congestive heart failure G8 MOTHER, Family history: Cardiovascular disease G8 SISTER, Onset:50's - 60 Family history: Diabetes mellitus G8 MOTHER, , Onset:50's - 60 G8 SISTER, Onset:40's - 50 Review of Systems Swelling H&P Exam Vital Signs/I&O Vital Sign Date Time Temp Pulse Resp B/P (MAP) Pulse Ox O2 Delivery O2 Flow Rate FiO2 04/10/24 13:30 71 20 144/69 (94) 98 04/10/24 07:39 Room Air* 0 21 04/10/24 07:39 98.1 98.1 Physical Exam Elderly female Not in overt distress Mild shortness of breath Crackles Abdomen non firm nontender positive bilateral lower extremity swelling Healed area scabies rash lower leg Labs/Diagnostic Data Labs/Diagnostic Data Laboratory Tests Test 04/10/24 13:16 04/10/24 05:47 04/10/24 00:40 04/09/24 18:31 Range/Units Influenza Type A Antigen Negative Negative Influenza Type B Antigen Negative Negative SARS-CoV-2 Antigen (Rapid) Negative NEGATIVE White Blood Count 8.8 4.4-10.8 10^3/uL Red Blood Count 3.70 L 4.0-5.20 10^6/uL Hemoglobin 7.2 L 12.2-16.2 g/dL Hematocrit 24.7 L 36.0-46.0 % Mean Corpuscular Volume 66.9 L 80.0-100.0 fL Mean Corpuscular Hemoglobin 19.5 L 28.0-32.0 pg Mean Corpuscular Hemoglobin Concent 29.1 L 32.0-36.0 g/dL Red Cell Distribution Width 23.1 H 11.8-14.3 % Platelet Count 569 H 140-450 10^3/uL Mean Platelet Volume 6.4 L 6.9-10.8 fL Neutrophils (%) (Auto) 76.5 37.0-80.0 % Lymphocytes (%) (Auto) 14.4 10.0-50.0 % Monocytes (%) (Auto) 5.9 0.0-12.0 % Eosinophils (%) (Auto) 2.0 0.0-7.0 % Basophils (%) (Auto) 1.2 0.0-2.0 % Neutrophils # (Auto) 6.7 1.6-8.6 10 ^3/uL Lymphocytes # (Auto) 1.3 0.4-5.4 10 ^3/uL Monocytes # (Auto) 0.5 0-1.3 10 ^3/uL Eosinophils # (Auto) 0.2 0-0.8 10 ^3/uL Basophils # (Auto) 0.1 0-0.2 10 ^3/uL Nucleated Red Blood Cells 0.2 % Sodium Level 129 L 136-145 mmol/L Potassium Level 3.4 L 3.5-5.1 mmol/L Chloride Level 97 L 98-107 mmol/L Carbon Dioxide Level 23 20-31 mmol/L Anion Gap 9 5-15 Blood Urea Nitrogen 18 9-23 mg/dL Creatinine 1.78 H 0.550-1.02 mg/dL Glomerular Filtration Rate Calc 30 >90 mL/min BUN/Creatinine Ratio 10.1 10.0-20.0 Serum Glucose 116 H 74-106 mg/dL Calcium Level 8.9 8.7-10.4 mg/dL Total Bilirubin 1.0 0.2-1.0 mg/dL Aspartate Amino Transferase (AST) 12 L 13-40 U/L Alanine Aminotransferase (ALT) 11 7-40 U/L Alkaline Phosphatase 105 46-116 U/L Total Protein 5.6 L 5.7-8.2 g/dL Albumin 3.5 3.2-4.8 g/dL Urine Color Straw Yellow Urine Clarity Clear Clear Urine pH 7.5 5.0-9.0 Urine Specific [place] 1.007 1.001-1.035 Urine Protein 2+ H Negative Urine Ketones Negative Negative Urine Blood Negative Negative /uL Urine Nitrite Negative Negative Urine Bilirubin Negative Negative Urine Urobilinogen Normal Negative mg/dL Urine Leukocyte Esterase Negative Negative /uL Urine RBC <1 0 - 4 /hpf Urine WBC 1 0 - 5 /hpf Urine Squamous Epithelial Cells None seen <5 /hpf Urine Bacteria Few H None Seen /hpf Urine Glucose 3+ H Normal mg/dL Troponin I High Sensitivity 21 </=34 ng/L Test 04/09/24 14:33 04/09/24 13:45 04/09/24 13:40 Range/Units Troponin I High Sensitivity 20 19 </=34 ng/L Hemoglobin A1c 6.1 H <5.7 % A1C Vitamin B12 Level 584 211-911 pg/mL Vitamin D 25-Hydroxy 18.9 L 30.0-100 ng/mL Thyroid Stimulating Hormone (TSH) 2.39 0.55-4.78 uIU/mL White Blood Count 8.9 4.4-10.8 10^3/uL Red Blood Count 3.48 L 4.0-5.20 10^6/uL Hemoglobin 7.2 L 12.2-16.2 g/dL Hematocrit 23.2 L 36.0-46.0 % Mean Corpuscular Volume 66.7 L 80.0-100.0 fL Mean Corpuscular Hemoglobin 20.8 L 28.0-32.0 pg Mean Corpuscular Hemoglobin Concent 31.2 L 32.0-36.0 g/dL Red Cell Distribution Width 23.4 H 11.8-14.3 % Platelet Count 553 H 140-450 10^3/uL Mean Platelet Volume 6.5 L 6.9-10.8 fL Neutrophils (%) (Auto) 83.2 H 37.0-80.0 % Lymphocytes (%) (Auto) 6.0 L 10.0-50.0 % Monocytes (%) (Auto) 7.2 0.0-12.0 % Eosinophils (%) (Auto) 2.1 0.0-7.0 % Basophils (%) (Auto) 1.5 0.0-2.0 % Neutrophils # (Auto) 7.4 1.6-8.6 10 ^3/uL Lymphocytes # (Auto) 0.5 0.4-5.4 10 ^3/uL Monocytes # (Auto) 0.6 0-1.3 10 ^3/uL Eosinophils # (Auto) 0.2 0-0.8 10 ^3/uL Basophils # (Auto) 0.1 0-0.2 10 ^3/uL Nucleated Red Blood Cells 0.3 % Sodium Level 131 L 136-145 mmol/L Potassium Level 4.1 3.5-5.1 mmol/L Chloride Level 97 L 98-107 mmol/L Carbon Dioxide Level 27 20-31 mmol/L Anion Gap 7 5-15 Blood Urea Nitrogen 19 9-23 mg/dL Creatinine 1.92 H 0.550-1.02 mg/dL Glomerular Filtration Rate Calc 28 >90 mL/min BUN/Creatinine Ratio 9.9 L 10.0-20.0 Serum Glucose 113 H 74-106 mg/dL Calcium Level 8.9 8.7-10.4 mg/dL B-Type Natriuretic Peptide 1787.61 0-100 pg/mL Assessment Acute kidney injury hemodynamically mediated Chronic kidney disease stage IIIB Hypertension Diabetes Diastolic heart failure with acute decompensation Scabies rash Currently receiving echocardiogram Avoid hypotension Lasix q.12 avoid hypotension dm2 treatment Scabies treatment Plan discussed with: Patient TIM SALES MD Apr 10, 2024 17:09
[2024-04-10] MEDS: ACCU-CHEK COMFORT CURVE STRIP VI SCH (17:12)
[2024-04-10] MEDS: InsuLIN REG 1unit/0.01ml Soln (100units/ml) SC SCH (17:16)
[2024-04-10 17:56] LABS: Protein, Urine 196.4 mg/dL (1-14)
--- NOTE | 2024-04-10 17:57 | DVHSR ---
APPROVED REPORT EXAM: Two-dimensional and M-mode echocardiogram with Doppler and color Doppler. Blood Pressure: 155/76 mmHg INDICATION HF EF Exacerbation RISK FACTORS Height: 65, Weight: 173 DIMENSIONS LVDd4.8 (3.8-5.7cm)LA (2D)4.4 (1.9-4.0cm)Aortic Root3.2 (2.0-3.7cm) LVDs3.4 (2.5-4.0cm)LA (MM) (1.9-4.0cm)Aortic Cusp Exc1.7 (1.5-2.0cm) EF (%) 56.7 (55-70%)Rt. Atrium5.1 (1.9-4.0cm)Asc. Aorta cm IVSd1.3 (0.7-1.1cm)RV (D) (1.8-2.4cm) PWd1.4 (0.7-1.1cm) Mitral Valve MitralMitral Stenosis E wave1.57m/sMV Mean GR.mmHg A wave1.14m/sMV Peak GR.102mmHg E/A ratio1.42D MVAcm2 DECEL [id number] 1/2 [id number] IVRTmsDop MVA2.39cm2 Aortic Valve Aortic ValveAortic Stenosis V10.94m/Ericka Mean GR.5mmHg V21.56m/Ericka Peak GR.10mmHg LVOT Diameter2.2 (1.8-2.4cm)Doppler AVA2.29cm2 Pulmonic Valve V21.12m/s Tricuspid Valve TR Velocity3.03m/s [id number] Conclusion lvef 35% by visual estimate mild LVH moderate Left atrium enlarged severe MAC, MS suspected but not fully assessed on this study mild to moderate mitral regurg RV enlarged, mild dysfunction
[2024-04-10 17:59] LABS: Creatinine, Urine 16.61 mg/dL (30.0-125.0); Urine Protein/Creatinine Ratio 11.82
[2024-04-10 19:00] VITALS: BP 135/69; PULSE 78; RESP 18; TEMP 98; O2SAT 95
--- NOTE | 2024-04-10 19:24 | DVHINCON2 ---
Date of service: Apr 10, 2024 History of Present Illness 68 yo F hx of CHF, current scabies, leg swelling, with acute on chronic HF. Past Medical History reviewed Family History: FH: congestive heart failure G8 MOTHER, Family history: Cardiovascular disease G8 SISTER, Onset:50's - 60 Family history: Diabetes mellitus G8 MOTHER, , Onset:50's - 60 G8 SISTER, Onset:40's - 50 Allergies: Coded Allergies: Ibuprofen (Verified Allergy, Unknown, 10/03/23) Home Meds Active Scripts Sodium Chloride (NASAL MIST) 0.9 % Aer, 1 % IN 5XD PRN for 30 Days, #2 AER 2 Refills Prov:LIN MADRIGAL MD 02/28/24 Permethrin (Elimite) 5 % Cre, 1 APPLIC TOP ONCE for 1 Day, #60 GRAMS 1 Refill Apply cream to entire body from head to toe in between feet and hand weddings leave on for 8-14 hours and then shower off. A repeat in 14 days. Prov:LIN MADRIGAL MD 02/28/24 Ferrous Sulfate (Ferrous Sulfate) 325 Mg Tab, 1 TAB PO EVERY OTHER DAY for 30 Days, #15 TAB Prov:LIN MADRIGAL MD 02/28/24 Hydroxyzine Hcl (Hydroxyzine Hcl) 25 Mg Tab, 1 TAB PO HS, #30 TAB 1-2 tabs at night as needed for itching. Do not drive or drink alcohol on medication. Prov:BERHANE MATT [employer]ASSEM[employer]ER 01/27/24 Pantoprazole Sodium Sesquihydr (Protonix) 40 Mg Tab, 40 MG PO DAILY, #30 TAB 5 R efills Prov:RUFINO REARDON MD 10/04/23 Ergocalciferol (VITAMIN D 72373 UNIT) 50,000 [place], [address] UNIT PO Q7D for 12 Days, #12 CAP Prov:MABEL GUZMAN MD 01/11/23 Empagliflozin (Jardiance) 10 Mg Tab, 10 MG PO QAM for 30 Days, #30 TAB Prov:MABEL GUZMAN MD 01/11/23 Reported Medications Sitagliptin Phosphate (Januvia) 50 Mg Tab, 1 TAB PO DAILY 10/03/23 Hydralazine Hcl (Hydralazine Hcl) 50 Mg Tab, 100 MG PO BID 10/03/23 Furosemide (Furosemide) 40 Mg Tab, 1 TAB PO DAILY 10/03/23 Finerenone (Kerendia) 10 Mg Tab, 1 TAB PO DAILY 10/01/23 Metoprolol Succinate (Metoprolol Succinate Er) 100 Mg Tab, 1 TAB PO DAILY 10/01/23 Losartan Potassium (Losartan Potassium) 100 Mg Tab, 100 MG PO DAILY for 30 Days, MG 07/12/21 Current Medications Current Medications Medications (Trade) Dose Ordered Sig/Yesenia Route PRN Reason Start Time Stop Time Status Last Admin Sodium Chloride (Saline Lock Ns) 10 ml Q8HR IV 04/09/24 22:00 04/10/24 14:04 Acetaminophen/ Hydrocodone Bitart ([place] 5/325MG Tab) 1 tab Q4HP PRN PO MODERATE PAIN (4-6 PAIN SCALE) 04/09/24 20:30 Ondansetron HCl (Zofran) 4 mg Q4HP PRN IV NAUSEA / VOMITING 04/09/24 20:30 Nitroglycerin (Ntrostat Sublingual) 0.4 mg Q5MINP PRN SL FOR CHEST PAIN 04/09/24 20:30 Morphine Sulfate 2 mg Q30M PRN IV FOR CHEST PAIN 04/09/24 20:30 Furosemide (Lasix Injection) 40 mg BIDD IV 04/10/24 06:00 04/10/24 05:52 Pantoprazole Sodium (Protonix Tablet) 40 mg DAILY PO 04/10/24 10:00 04/10/24 09:31 Ferrous Sulfate 325 mg EVERY OTHER DAY PO 04/09/24 22:15 Hydralazine HCl (Apresoline Tablet) 100 mg BID PO 04/10/24 10:00 04/09/24 23:59 DC Losartan Potassium (Cozaar Tablet) 100 mg DAILY PO 04/10/24 10:00 04/10/24 09:31 Metoprolol Succinate (Toprol Xl) 100 mg DAILY PO 04/10/24 10:00 04/10/24 09:46 Hydralazine HCl (Apresoline Injection) 10 mg Q6HR PRN IV SBP >150 04/09/24 23:45 04/09/24 23:42 Heparin Sodium (Porcine) 5,000 units Q12HR SC 04/10/24 10:00 04/10/24 07:00 DC Ergocalciferol (Vitamin D 50,000 Unit) 50,000 unit Q7D PO 04/10/24 05:00 04/10/24 05:01 Cephalexin (Keflex Capsule) 500 mg BID PO 04/10/24 12:15 04/10/24 13:07 Diagnostic Test (Pha) (Accu-Chek Comfort Curve T) 1 strip ACHS 04/10/24 17:00 04/10/24 17:12 Insulin Human Regular (InsuLIN R) ACHS SC 04/10/24 17:00 04/10/24 17:16 Dextrose 50 ml UD PRN IV Blood Sugar LESS THAN 60 04/10/24 14:15 Review of Systems 10 pt ros otherwise negatve Vital Signs Vital Signs Date Time Temp Pulse Resp B/P (MAP) Pulse Ox O2 Delivery O2 Flow Rate FiO2 04/10/24 18:33 Room Air* 0 21 04/10/24 17:30 64 21 135/62 (86) 98 04/10/24 07:39 98.1 98.1 Physical Exam nad s1 s2 rrr ctab soft nt/nd Labs/Diagnostic Data Labs Test 04/10/24 17:10 04/10/24 13:16 04/10/24 05:47 04/10/24 00:40 Range/Units POC Glucose 133 H 70-106 mg/dl Influenza Type A Antigen Negative Negative Influenza Type B Antigen Negative Negative SARS-CoV-2 Antigen (Rapid) Negative NEGATIVE White Blood Count 8.8 4.4-10.8 10^3/uL Red Blood Count 3.70 L 4.0-5.20 10^6/uL Hemoglobin 7.2 L 12.2-16.2 g/dL Hematocrit 24.7 L 36.0-46.0 % Mean Corpuscular Volume 66.9 L 80.0-100.0 fL Mean Corpuscular Hemoglobin 19.5 L 28.0-32.0 pg Mean Corpuscular Hemoglobin Concent 29.1 L 32.0-36.0 g/dL Red Cell Distribution Width 23.1 H 11.8-14.3 % Platelet Count 569 H 140-450 10^3/uL Mean Platelet Volume 6.4 L 6.9-10.8 fL Neutrophils (%) (Auto) 76.5 37.0-80.0 % Lymphocytes (%) (Auto) 14.4 10.0-50.0 % Monocytes (%) (Auto) 5.9 0.0-12.0 % Eosinophils (%) (Auto) 2.0 0.0-7.0 % Basophils (%) (Auto) 1.2 0.0-2.0 % Neutrophils # (Auto) 6.7 1.6-8.6 10 ^3/uL Lymphocytes # (Auto) 1.3 0.4-5.4 10 ^3/uL Monocytes # (Auto) 0.5 0-1.3 10 ^3/uL Eosinophils # (Auto) 0.2 0-0.8 10 ^3/uL Basophils # (Auto) 0.1 0-0.2 10 ^3/uL Nucleated Red Blood Cells 0.2 % Sodium Level 129 L 136-145 mmol/L Potassium Level 3.4 L 3.5-5.1 mmol/L Chloride Level 97 L 98-107 mmol/L Carbon Dioxide Level 23 20-31 mmol/L Anion Gap 9 5-15 Blood Urea Nitrogen 18 9-23 mg/dL Creatinine 1.78 H 0.550-1.02 mg/dL Glomerular Filtration Rate Calc 30 >90 mL/min BUN/Creatinine Ratio 10.1 10.0-20.0 Serum Glucose 116 H 74-106 mg/dL Calcium Level 8.9 8.7-10.4 mg/dL Total Bilirubin 1.0 0.2-1.0 mg/dL Aspartate Amino Transferase (AST) 12 L 13-40 U/L Alanine Aminotransferase (ALT) 11 7-40 U/L Alkaline Phosphatase 105 46-116 U/L Total Protein 5.6 L 5.7-8.2 g/dL Albumin 3.5 3.2-4.8 g/dL Urine Color Straw Yellow Urine Clarity Clear Clear Urine pH 7.5 5.0-9.0 Urine Specific [place] 1.007 1.001-1.035 Urine Protein 2+ H Negative Urine Ketones Negative Negative Urine Blood Negative Negative /uL Urine Nitrite Negative Negative Urine Bilirubin Negative Negative Urine Urobilinogen Normal Negative mg/dL Urine Leukocyte Esterase Negative Negative /uL Urine RBC <1 0 - 4 /hpf Urine WBC 1 0 - 5 /hpf Urine Squamous Epithelial Cells None seen <5 /hpf Urine Bacteria Few H None Seen /hpf Urine Creatinine 16.61 L 30.0-125.0 mg/dL Urine Protein/Creatinine Ratio 11.82 Urine Glucose 3+ H Normal mg/dL Urine Total Protein 196.4 H 1-14 mg/dL Test 04/09/24 18:31 04/09/24 13:45 04/09/24 13:40 Range/Units Troponin I High Sensitivity 21 </=34 ng/L Hemoglobin A1c 6.1 H <5.7 % A1C Vitamin B12 Level 584 211-911 pg/mL Vitamin D 25-Hydroxy 18.9 L 30.0-100 ng/mL Thyroid Stimulating Hormone (TSH) 2.39 0.55-4.78 uIU/mL B-Type Natriuretic Peptide 1787.61 0-100 pg/mL Assessment acute on chronic systolic hf ckd scabies htn Plan/Recommendation lvef 35% , was 45% last year with nuclear pt had lifevest 10 years ago likely had low EF iv lasix, pt is urinating well please fu with cardiology after her scabies is cured treat with HF meds: nilson/arb/arni, yuval, bb Plan discussed with: Patient KARRIE ESTRELLA MD Apr 10, 2024 19:24
[2024-04-10 21:00] VITALS: BP 142/68; PULSE 64; RESP 18; TEMP 97.6; O2SAT 93
[2024-04-11] VITALS (9 sets, daily range): BP systolic 140–158; BP diastolic 63–80; PULSE 56–80; RESP 14–20; TEMP 97.4–98.8; O2SAT 94–98
[2024-04-11 06:16] LABS: Anion Gap 9 (5-15); Calcium 8.9 mg/dL (8.7-10.4); Carbon Dioxide 22 mmol/L (20-31); Chloride 97 mmol/L (98-107); Potassium 3.9 mmol/L (3.5-5.1); Sodium 128 mmol/L (136-145)
[2024-04-11 06:22] LABS: BUN/Creatinine Ratio 10.1 (10.0-20.0); Blood Urea Nitrogen 22 mg/dL (9-23); Glucose 109 mg/dL (74-106); Mean Corpuscular Volume 65.6 fL (80.0-100.0)
[2024-04-11 06:25] LABS: Hematocrit 20.2 % (36.0-46.0); Mean Corpuscular Hemoglobin 20.7 pg (28.0-32.0); Mean Corpuscular Hgb Conc. 31.5 g/dL (32.0-36.0); Platelet Count (auto) 504 10^3/uL (140-450); Red Blood Cells 3.07 10^6/uL (4.0-5.20)
[2024-04-11 06:35] LABS: Red Cell Distribution Width 22.9 % (11.8-14.3)
[2024-04-11 06:38] LABS: Hemoglobin 6.3 g/dL (12.2-16.2)
[2024-04-11 06:39] LABS: Basophils % (manual) 0 (0.0-2.0); Blast Cells 0; Metamyelocytes % 0; Myelocytes % 0; Promyelocytes % 0; Reactive Lymphocytes 0
[2024-04-11 07:49] LABS: % Iron Saturation 3.6 % (15-50)
[2024-04-11 07:55] LABS: Band Neutrophils % (manual) 1; Eosinophils % (manual) 6 (0-7); Lymphocytes % (manual) 23 (10.0-50.0); Monocytes % (manual) 11 (0-12)
[2024-04-11 07:56] LABS: Anisocytosis Moderate; Hypochromia Slight; Platelet Estimate Increased; Polychromasia Slight
--- NOTE | 2024-04-11 09:28 | DVHPN2 ---
Progress Note - Dictate Date Seen: Apr 11, 2024 Medical Necessity Reason Pt with a Central, PICC or Fol: No Subjective hb noted decreased this am vital signs Vital Sign Date Time Temp Pulse Resp B/P (MAP) Pulse Ox O2 Delivery O2 Flow Rate FiO2 04/11/24 09:00 97.9 65 15 150/76 (100) 98 97.9 04/10/24 20:00 Room Air* 0 21 Total Intake and Output 04/10/24 04/10/24 04/11/24 15:00 23:00 07:00 Intake Total 200 ml Balance 200 ml medications Current Medications Medications Dose Ordered Sig/Yesenia Route Start Time Stop Time Status Last Admin Dose Admin Sodium Chloride 10 ml Q8HR IV 04/09/24 22:00 04/11/24 06:00 10 ML Acetaminophen/ Hydrocodone Bitart 1 tab Q4HP PRN PO 04/09/24 20:30 Ondansetron HCl 4 mg Q4HP PRN IV 04/09/24 20:30 Nitroglycerin 0.4 mg Q5MINP PRN SL 04/09/24 20:30 Morphine Sulfate 2 mg Q30M PRN IV 04/09/24 20:30 Furosemide 40 mg BIDD IV 04/10/24 06:00 04/11/24 06:00 40 MG Pantoprazole Sodium 40 mg DAILY PO 04/10/24 10:00 04/10/24 09:31 40 MG Ferrous Sulfate 325 mg EVERY OTHER DAY PO 04/09/24 22:15 Losartan Potassium 100 mg DAILY PO 04/10/24 10:00 04/10/24 09:31 100 MG Metoprolol Succinate 100 mg DAILY PO 04/10/24 10:00 04/10/24 09:46 100 MG Hydralazine HCl 10 mg Q6HR PRN IV 04/09/24 23:45 04/09/24 23:42 10 MG Ergocalciferol 50,000 unit Q7D PO 04/10/24 05:00 04/10/24 05:01 50,000 UNIT Cephalexin 500 mg BID PO 04/10/24 12:15 04/10/24 22:29 500 MG Diagnostic Test (Pha) 1 strip ACHS 04/10/24 17:00 04/11/24 06:40 1 STRIP Insulin Human Regular ACHS SC 04/10/24 17:00 04/10/24 17:16 2 UNITS Dextrose 50 ml UD PRN IV 04/10/24 14:15 objective Elderly female Not in overt distress Mild shortness of breath Crackles Abdomen non firm nontender positive bilateral lower extremity swelling Healed area scabies rash lower leg laboratory and microbiology Laboratory Tests 04/11/24 05:09 Test 04/11/24 05:09 Range/Units Serum Glucose 109 H 74-106 mg/dL Assessment/Plan Acute kidney injury hemodynamically mediated Chronic kidney disease stage IIIB Hypertension Diabetes Diastolic heart failure with acute decompensation systolic HF new EF 35% Scabies rash severe iron deficiency anemia PRBC ordered Avoid hypotension Lasix q.12 ARB avoid hypotension dm2 treatment Scabies treatment Plan discussed with: Patient TIM SALES MD Apr 11, 2024 09:28
--- NOTE | 2024-04-11 11:07 | DVHPNRES ---
Progress Note Date Seen: Apr 11, 2024 Resident Creating Document: JESSICA SANTANA RESIDENT Medical Necessity Reason Pt with a Central, PICC or Fol: No Subjective Review of Systems Patient is a 68-year-old female with past medical history of heart failure with preserved ejection fraction, CKD stage 3, chronic anemia, hypertension, dyslipidemia, type 2 diabetes and recently diagnosed scabies now resolved, who came in due to bilateral lower extremity swelling. According to the patient, for the past 1 week she has been experiencing worsening bilateral lower extremity swelling along with shortness of breaths which prompted this visit to the hospital. She notes that her shortness of breath has been worsening over the last 1 week and her home dose p.o. Lasix has not helped. Past surgical history: Home medications: jardiance, furosemide, hydralazine, losartan, metoprolol succinate, protonix, sitagliptin Past Hospitalization: 02/27/24 for symptomatic anemia and received a blood transfusion Social & Personal history: lives alone. denies smoking, alcohol or use of any drugs Allergies: ibuprofen Patient seen and examined at bedside. Patient is alert and oriented to time, place person and responding to all questions. Reports improving shortness of breath, can not complete sentences and is seen ambulating around the room. Patient notes that a few of for her scabs from scabies itching are bleeding. Objective vital signs Vital Sign Date Time Temp Pulse Resp B/P (MAP) Pulse Ox O2 Delivery O2 Flow Rate FiO2 04/11/24 10:14 65 150/72 04/11/24 09:00 97.9 15 98 97.9 04/10/24 20:00 Room Air* 0 21 Total Intake and Output 04/10/24 04/10/24 04/11/24 15:00 23:00 07:00 Intake Total 200 ml Balance 200 ml medications Current Medications Medications Dose Ordered Sig/Yesenia Route Start Time Stop Time Status Last Admin Dose Admin Sodium Chloride 10 ml Q8HR IV 04/09/24 22:00 04/11/24 06:00 10 ML Acetaminophen/ Hydrocodone Bitart 1 tab Q4HP PRN PO 04/09/24 20:30 Ondansetron HCl 4 mg Q4HP PRN IV 04/09/24 20:30 Nitroglycerin 0.4 mg Q5MINP PRN SL 04/09/24 20:30 Morphine Sulfate 2 mg Q30M PRN IV 04/09/24 20:30 Furosemide 40 mg BIDD IV 04/10/24 06:00 04/11/24 06:00 40 MG Pantoprazole Sodium 40 mg DAILY PO 04/10/24 10:00 04/11/24 10:13 40 MG Ferrous Sulfate 325 mg EVERY OTHER DAY PO 04/09/24 22:15 Losartan Potassium 100 mg DAILY PO 04/10/24 10:00 04/11/24 10:14 100 MG Metoprolol Succinate 100 mg DAILY PO 04/10/24 10:00 04/11/24 10:14 100 MG Hydralazine HCl 10 mg Q6HR PRN IV 04/09/24 23:45 04/09/24 23:42 10 MG Ergocalciferol 50,000 unit Q7D PO 04/10/24 05:00 04/10/24 05:01 50,000 UNIT Cephalexin 500 mg BID PO 04/10/24 12:15 04/11/24 10:13 500 MG Diagnostic Test (Pha) 1 strip ACHS 04/10/24 17:00 04/11/24 06:40 1 STRIP Insulin Human Regular ACHS SC 04/10/24 17:00 04/10/24 17:16 2 UNITS Dextrose 50 ml UD PRN IV 04/10/24 14:15 Examination General Appearance: Alert, Oriented X3, Cooperative, No acute distress HEENT: Atraumatic, PERRLA, EOMI, Mucous membrane moist/pink Respiratory: Bilateral crackles in both lung field Cardiovascular: Regular rate, Normal S1, Normal S2, No murmurs, no chest wall tenderness Abdominal: Normal bowel sounds, Soft, No tenderness, No hepatospenomegaly, No masses Extremities: Edema++, No clubbing, No cyanosis, Normal pulses, No tenderness/swelling Skin: No rashes, No breakdown, No significant lesion Lower extremity, healing ulcers from itching noted R>L Neuro: Normal gait, Normal speech, Strength at 5/5 X4 ext, Normal tone, Sensation intact, grossly intact cranial nerves. Psych/Mental Status: Mental status NL, Mood NL laboratory and microbiology Laboratory Tests 04/11/24 05:09 Test 04/11/24 05:09 Range/Units Serum Glucose 109 H 74-106 mg/dL Problem List/Assessment/Plan Problem List/Assessment/Plan Acute on chronic heart failure with reduced ejection fraction, last echo 07/21/2023 showed ejection fraction of 55%, EF on echo from 04/10/2024 35% - CXR: Patchy bilateral airspace disease may represent viral pneumonia or pulmonary vascular congestion. - IV furosemide 40 mg b.i.d. - losartan 100 mg p.o. daily, metoprolol succinate 100 mg p.o. daily - echo from 07/21/2023: Heavily calcified posterior mitral leaflet. Moderately calcified aortic valve. LVEF 55%. Moderate degree LVH and moderate degree LV diastolic dysfunction. - ordered repeat echocardiogram - consulted cardiology YOVANI, likely hemodynamically mediated/VMN on probable CKD IIIb Chronic hyponatremia, asymptomatic - we will continue to monitor - nephrology on board Type 2 diabetes, uncontrolled, HbA1c 6.1 - mild sliding scale insulin Hypertension - losartan-100 mg p.o. daily - metoprolol 100 mg p.o. daily - IV hydralazine 10 mg q.6 as needed for SBP greater than 150 Right lower extremity healing ulcers from scabies Scabies, improving - lower extremity Doppler: No right deep venous thrombosis - cephalexin 500 mg p.o. b.i.d. Chronic anemia, iron deficiency versus of chronic disease, worsening hemoglobin of 6.3 today - ordered 1 PRBC transfusion - ferrous sulfate 325 mg every other day - ordered stool occult blood - patient completed EGD on 10/04/2023 which showed mild gastritis with a few gastric erosions and erosive esophagitis Vitamin-D deficiency - repleted PUD prophylaxis: protonix 40mg DVT prophylaxis: SCD Goals of care: Full code, discussed for >16 minutes on 04/10/24 Plan discussed with patient Plan discussed with Dr. Velásquez Plan discussed with: Patient, Other (RN) My Orders My Orders Orders - JESSICA SANTANA RESIDENT Procedure Category Date Status Time Rt Lower Dvt US 04/10/24 Resulted 12:08 Cephalexin Capsule PHA 04/10/24 In Process (Keflex Capsule) 12:15 Consistent DIET 04/10/24 Transmitted Carb(Ccho)Diabetes Lunch Echo 2d Mode Cardiac US 04/10/24 Resulted DOP 12:08 * Cardiology Consult CONS 04/10/24 Transmitted 12:08 Stool Occult Blood LAB 04/10/24 Logged 12:12 Glucose Blood PHA 04/10/24 In Process (Accu-Chek Comfort 17:00 Insulin R (Human) PHA 04/10/24 In Process (Insulin R) 17:00 Dextrose 50% Syringe PHA 04/10/24 In Process 14:15 JESSICA SANTANA RESIDENT Apr 11, 2024 11:07
[2024-04-11] MEDS: ONDANSETRON HCL 4 MG/2 ML VIAL IV PRN (21:54)
[2024-04-12] VITALS (8 sets, daily range): BP systolic 131–158; BP diastolic 62–92; PULSE 54–66; RESP 12–18; TEMP 97.8–98.3; O2SAT 95–98
[2024-04-12 06:30] LABS: Hemoglobin 8.1 g/dL (12.2-16.2); Mean Corpuscular Volume 69.6 fL (80.0-100.0); White Blood Cell 7.1 10^3/uL (4.4-10.8)
[2024-04-12 06:32] LABS: Hematocrit 25.4 % (36.0-46.0); Mean Corpuscular Hemoglobin 22.1 pg (28.0-32.0); Mean Corpuscular Hgb Conc. 31.8 g/dL (32.0-36.0); Platelet Count (auto) 447 10^3/uL (140-450); Red Blood Cells 3.65 10^6/uL (4.0-5.20); Red Cell Distribution Width 25.7 % (11.8-14.3)
[2024-04-12 06:39] LABS: Basophils % (manual) 0 (0.0-2.0); Blast Cells 0; Metamyelocytes % 0; Myelocytes % 0; Promyelocytes % 0; Reactive Lymphocytes 0
[2024-04-12 06:45] LABS: Anion Gap 8 (5-15); Carbon Dioxide 20 mmol/L (20-31); Chloride 96 mmol/L (98-107); Potassium 3.8 mmol/L (3.5-5.1); Sodium 124 mmol/L (136-145)
[2024-04-12 06:46] LABS: Calcium 8.8 mg/dL (8.7-10.4)
[2024-04-12 06:51] LABS: BUN/Creatinine Ratio 10.5 (10.0-20.0); Blood Urea Nitrogen 23 mg/dL (9-23); Glucose 100 mg/dL (74-106)
[2024-04-12 07:43] LABS: Band Neutrophils % (manual) 1; Eosinophils % (manual) 3 (0-7); Lymphocytes % (manual) 18 (10.0-50.0); Monocytes % (manual) 9 (0-12)
[2024-04-12 07:44] LABS: Anisocytosis Moderate; Hypochromia Slight; Platelet Estimate Adequate; Polychromasia Slight
--- NOTE | 2024-04-12 10:18 | DVHPNRES ---
Progress Note Date Seen: Apr 12, 2024 Resident Creating Document: CORDELIA LAI RESIDENT Medical Necessity Reason Pt with a Central, PICC or Fol: No Subjective Patient reports: No new complaints, Feels better Changes from previous H/P or p: No Changes Review of Systems: HEENT:Normal, CVS:Normal, RESPIRATORY:Normal, GI:Normal, :Normal, MSK:Abnormal (Leg itchiness), NEURO:Normal Objective vital signs Vital Sign Date Time Temp Pulse Resp B/P (MAP) Pulse Ox O2 Delivery O2 Flow Rate FiO2 04/12/24 06:11 131/63 04/12/24 05:00 98.3 60 12 98 98.3 04/11/24 20:00 Room Air* 0 21 Total Intake and Output 04/11/24 04/11/24 04/12/24 15:00 23:00 07:00 Intake Total 1800 ml 300 ml Balance 1800 ml 300 ml medications Current Medications Medications Dose Ordered Sig/Yesenia Route Start Time Stop Time Status Last Admin Dose Admin Sodium Chloride 10 ml Q8HR IV 04/09/24 22:00 04/12/24 06:11 10 ML Acetaminophen/ Hydrocodone Bitart 1 tab Q4HP PRN PO 04/09/24 20:30 Ondansetron HCl 4 mg Q4HP PRN IV 04/09/24 20:30 04/11/24 21:54 4 MG Nitroglycerin 0.4 mg Q5MINP PRN SL 04/09/24 20:30 Morphine Sulfate 2 mg Q30M PRN IV 04/09/24 20:30 Furosemide 40 mg BIDD IV 04/10/24 06:00 04/12/24 06:11 40 MG Pantoprazole Sodium 40 mg DAILY PO 04/10/24 10:00 04/11/24 10:13 40 MG Ferrous Sulfate 325 mg EVERY OTHER DAY PO 04/09/24 22:15 Losartan Potassium 100 mg DAILY PO 04/10/24 10:00 04/11/24 10:14 100 MG Metoprolol Succinate 100 mg DAILY PO 04/10/24 10:00 04/11/24 10:14 100 MG Hydralazine HCl 10 mg Q6HR PRN IV 04/09/24 23:45 04/09/24 23:42 10 MG Ergocalciferol 50,000 unit Q7D PO 04/10/24 05:00 04/10/24 05:01 50,000 UNIT Cephalexin 500 mg BID PO 04/10/24 12:15 04/11/24 21:54 500 MG Diagnostic Test (Pha) 1 strip ACHS 04/10/24 17:00 04/12/24 06:16 1 STRIP Insulin Human Regular ACHS SC 04/10/24 17:00 04/11/24 11:56 2 UNITS Dextrose 50 ml UD PRN IV 04/10/24 14:15 Examination: GENERAL:Normal, HEENT:Normal, NECK:Normal, LUNGS:Normal, CVS:Normal, ABDOMEN:Normal, MSK:Normal, SKIN:Normal, NEURO:Normal, :Normal laboratory and microbiology Laboratory Tests 04/12/24 05:39 Test 04/12/24 05:39 Range/Units Serum Glucose 100 74-106 mg/dL Labs and/or images reviewed: Labs reviewed by me, Image(s) reviewed by me Problem List/Assessment/Plan Problem List/Assessment/Plan Hospital Course: A 68-year-old female with a history of heart failure with preserved ejection fraction, stage 3 chronic kidney disease, chronic anemia, hypertension, dyslipidemia, type 2 diabetes, and recently resolved scabies presented with worsening bilateral lower extremity swelling and shortness of breath over the past week. Her home dose of Lasix has not alleviated her symptoms. She has a past surgical history of a and takes multiple medications, including jardiance and furosemide. She was hospitalized on 02/27/24 for symptomatic anemia and received a blood transfusion. She lives alone, denies smoking, alcohol, or drug use, and is allergic to ibuprofen. On examination, she was alert and oriented, reported improving shortness of breath, and was seen ambulating around the room, though some scabs from scabies were bleeding. # Acute on chronic heart failure with reduced ejection fraction: last echo 07/21/2023 showed ejection fraction of 55%, EF on echo from 04/10/2024 35%, appreciate Cardiology input # significant drop in ejection fraction: Needs further workup, close follow up with Cardiology. # YOVANI: likely hemodynamically mediated/VMN on probable CKD IIIb # Chronic hyponatremia: asymptomatic, nephrology on board # Type 2 diabetes: Well controlled HbA1c 6.1, mild sliding scale insulin # Hypertension : - losartan-100 mg p.o. daily , metoprolol 100 mg p.o. daily ,IV hydralazine 10 mg q.6 >>> blood pressure was elevated with low heart rate, added amlodipine 5 mg daily. # Right lower extremity healing ulcers from scabies: DVT ruled out with venous Doppler Cephalexin 500 p.o. b.i.d. # recent history of treated scabies: No need of repeat permethrin cream # acute on Chronic anemia: Likely iron deficiency versus of chronic disease, worsening hemoglobin of 6.3, status post PRBC ferrous sulfate every other day, follow stool occult, recent EGD 10/04/2023 mild gastritis and gastric erosions with erosive esophagitis. # heavily calcified posterior mitral leaflet # moderately calcific aortic valve # Vitamin-D deficiency: Repleted # transient sinus bradycardia: Decreased home dose metoprolol succinate 100 mg to 25 daily # PUD prophylaxis: Protonix 40 mg daily # DVT prophylaxis: SCD Barriers to discharge: patient is having ongoing treatment. We will discharge at improvement. Case discussed with Dr. Velásquez Code status: Full code. Complex patient care discussion needed total 35 minutes. Plan discussed with: Patient, Other (Primary team, RN) CC Plasma Assessment Blood Product Administration S: [id number] CORDELIA LAI RESIDENT Apr 12, 2024 10:18
[2024-04-12] MEDS ORDERED: PERMETHRIN 5 % TOPICAL CREAM 60GM TOP ONE (13:30)
--- NOTE | 2024-04-12 15:23 | DVHPN2 ---
Progress Note - Dictate Date Seen: Apr 12, 2024 Medical Necessity Reason Pt with a Central, PICC or Fol: No Subjective s/p PRBC yesterday vital signs Vital Sign Date Time Temp Pulse Resp B/P (MAP) Pulse Ox O2 Delivery O2 Flow Rate FiO2 04/12/24 13:00 98.0 61 16 143/92 (109) 98 98.0 04/12/24 08:00 Room Air* 0 21 Total Intake and Output 04/11/24 04/11/24 04/12/24 15:00 23:00 07:00 Intake Total 1800 ml 300 ml Balance 1800 ml 300 ml medications Current Medications Medications Dose Ordered Sig/Yesenia Route Start Time Stop Time Status Last Admin Dose Admin Sodium Chloride 10 ml Q8HR IV 04/09/24 22:00 04/12/24 06:11 10 ML Acetaminophen/ Hydrocodone Bitart 1 tab Q4HP PRN PO 04/09/24 20:30 Ondansetron HCl 4 mg Q4HP PRN IV 04/09/24 20:30 04/11/24 21:54 4 MG Nitroglycerin 0.4 mg Q5MINP PRN SL 04/09/24 20:30 Morphine Sulfate 2 mg Q30M PRN IV 04/09/24 20:30 Furosemide 40 mg BIDD IV 04/10/24 06:00 04/12/24 06:11 40 MG Pantoprazole Sodium 40 mg DAILY PO 04/10/24 10:00 04/12/24 09:59 40 MG Ferrous Sulfate 325 mg EVERY OTHER DAY PO 04/09/24 22:15 Losartan Potassium 100 mg DAILY PO 04/10/24 10:00 04/12/24 09:59 100 MG Hydralazine HCl 10 mg Q6HR PRN IV 04/09/24 23:45 04/09/24 23:42 10 MG Ergocalciferol 50,000 unit Q7D PO 04/10/24 05:00 04/10/24 05:01 50,000 UNIT Cephalexin 500 mg BID PO 04/10/24 12:15 04/12/24 09:59 500 MG Diagnostic Test (Pha) 1 strip ACHS 04/10/24 17:00 04/12/24 12:08 1 STRIP Insulin Human Regular ACHS SC 04/10/24 17:00 04/12/24 12:19 2 UNITS Dextrose 50 ml UD PRN IV 04/10/24 14:15 Amlodipine Besylate 5 mg DAILY PO 04/13/24 10:00 Metoprolol Succinate 25 mg DAILY PO 04/13/24 10:00 objective Elderly female Not in overt distress Mild shortness of breath Crackles Abdomen non firm nontender positive bilateral lower extremity swelling Healed area scabies rash lower leg laboratory and microbiology Laboratory Tests 04/12/24 05:39 Test 04/12/24 05:39 Range/Units Serum Glucose 100 74-106 mg/dL Assessment/Plan Acute kidney injury hemodynamically mediated Chronic kidney disease stage IIIB Hypertension Diabetes Diastolic heart failure with acute decompensation systolic HF new EF 35% Scabies rash severe iron deficiency anemia fluids need to be restricted , continue diuretics Avoid hypotension Lasix q.12 ARB avoid hypotension dm2 treatment Scabies treatment Plan discussed with: Patient CC Plasma Assessment Blood Product Administration S: [id number] TIM SALES MD Apr 12, 2024 15:23
[2024-04-12] MEDS: amLODIPine BESYLATE 5 MG TAB PO ONE (18:18)
[2024-04-13 00:40] VITALS: BP 135/54; PULSE 61; RESP 15; TEMP 98.1; O2SAT 96
[2024-04-13 04:27] VITALS: BP 98/58; PULSE 89; RESP 15; TEMP 97.8; O2SAT 98
[2024-04-13 07:24] LABS: Basophils # (auto) 0.1 10 ^3/uL (0-0.2); Eosinophils # (auto) 0.4 10 ^3/uL (0-0.8); Hematocrit 26.4 % (36.0-46.0)
[2024-04-13 07:26] LABS: Basophils % (auto) 0.9 % (0.0-2.0); Eosinophils % (auto) 4.7 % (0.0-7.0); Hemoglobin 8.3 g/dL (12.2-16.2); Lymphocytes # (auto) 1.5 10 ^3/uL (0.4-5.4); Lymphocytes % (auto) 16.7 % (10.0-50.0); Mean Corpuscular Hgb Conc. 31.4 g/dL (32.0-36.0); Monocytes # (auto) 0.8 10 ^3/uL (0-1.3); Monocytes % (auto) 8.6 % (0.0-12.0); Neutrophils # (auto) 6.3 10 ^3/uL (1.6-8.6); Neutrophils % (auto) 69.1 % (37.0-80.0); Nucleated Red Blood Cells % 0.1 %; Platelet Count (auto) 461 10^3/uL (140-450); Red Blood Cells 3.78 10^6/uL (4.0-5.20); White Blood Cell 9.1 10^3/uL (4.4-10.8)
[2024-04-13 07:37] LABS: Red Cell Distribution Width 25.4 % (11.8-14.3)
[2024-04-13 07:41] LABS: Alanine Aminotransferase 26 U/L (7-40); Alkaline Phosphatase 92 U/L (46-116); Anion Gap 9 (5-15); Aspartate Aminotransferase 28 U/L (13-40); BUN/Creatinine Ratio 11.8 (10.0-20.0); Blood Urea Nitrogen 28 mg/dL (9-23); Calcium 8.9 mg/dL (8.7-10.4); Carbon Dioxide 23 mmol/L (20-31); Chloride 96 mmol/L (98-107); Glucose 84 mg/dL (74-106); Sodium 128 mmol/L (136-145)
[2024-04-13 07:42] LABS: Albumin 3.2 g/dL (3.2-4.8)
[2024-04-13 07:43] LABS: Bilirubin, Total 0.8 mg/dL (0.2-1.0); Total Protein 5.4 g/dL (5.7-8.2)
[2024-04-13 08:21] LABS: Anisocytosis Moderate; Hypochromia Moderate
[2024-04-13 08:23] LABS: Large Platelets FEW; Ovalocytes FEW; Platelet Estimate Increa
[2024-04-13 09:00] VITALS: BP 160/53; PULSE 66; RESP 17; TEMP 97.5; O2SAT 94
[2024-04-13] MEDS: amLODIPine BESYLATE 5 MG TAB PO SCH (10:18)
[2024-04-13] MEDS: METOPROLOL SUCCINATE XL 50 MG TAB PO SCH (10:19)
--- NOTE | 2024-04-13 17:10 | DVHPN2 ---
Progress Note Date Seen: Apr 13, 2024 Medical Necessity Reason Pt with a Central, PICC or Fol: No Subjective Patient reports: No new complaints Objective vital signs Vital Sign Date Time Temp Pulse Resp B/P (MAP) Pulse Ox O2 Delivery O2 Flow Rate FiO2 04/13/24 10:19 66 160/53 04/13/24 09:00 97.5 17 94 97.5 04/13/24 08:00 Room Air* 0 21 Total Intake and Output 04/12/24 04/12/24 04/13/24 15:00 23:00 07:00 Intake Total 1420 ml 300 ml Output Total 0 ml Balance 1420 ml 300 ml Examination: SKIN:Abnormal laboratory and microbiology Laboratory Tests 04/13/24 05:46 Test 04/13/24 05:46 Range/Units Serum Glucose 84 74-106 mg/dL Problem List/Assessment/Plan Problem List/Assessment/Plan Acute kidney injury hemodynamically mediated Chronic kidney disease stage IIIB Hypertension Diabetes Diastolic heart failure with acute decompensation systolic HF new EF 35% Scabies rash severe iron deficiency anemia hyponatremia fluids need to be restricted , continue diuretics Avoid hypotension Lasix q.12 ARB avoid hypotension iron replace Plan discussed with: Patient CC Plasma Assessment Blood Product Administration S: [id number] CARRINGTON ESTES MD Apr 13, 2024 17:09
--- NOTE | 2024-04-13 19:13 | DVHDSRES ---
Discharge Summary Date of Admission Resident Creating Document: JAMES CABELLO RESIDENT Apr 09, 2024 at 20:21 Date of Discharge: Apr 13, 2024 Labs/Diagnostic Data: Laboratory Results Test 04/13/24 11:13 04/13/24 05:46 04/12/24 05:39 04/11/24 05:09 POC Glucose 159 mg/dl (70-106) White Blood Count 9.1 10^3/uL (4.4-10.8) Red Blood Count 3.78 10^6/uL (4.0-5.20) Hemoglobin 8.3 g/dL (12.2-16.2) Hematocrit 26.4 % (36.0-46.0) Mean Corpuscular Volume 70.0 fL (80.0-100.0) Mean Corpuscular Hemoglobin 22.0 pg (28.0-32.0) Mean Corpuscular Hemoglobin Concent 31.4 g/dL (32.0-36.0) Red Cell Distribution Width 25.4 % (11.8-14.3) Platelet Count 461 10^3/uL (140-450) Mean Platelet Volume 6.6 fL (6.9-10.8) Neutrophils (%) (Auto) 69.1 % (37.0-80.0) Lymphocytes (%) (Auto) 16.7 % (10.0-50.0) Monocytes (%) (Auto) 8.6 % (0.0-12.0) Eosinophils (%) (Auto) 4.7 % (0.0-7.0) Basophils (%) (Auto) 0.9 % (0.0-2.0) Neutrophils # (Auto) 6.3 10 ^3/uL (1.6-8.6) Lymphocytes # (Auto) 1.5 10 ^3/uL (0.4-5.4) Monocytes # (Auto) 0.8 10 ^3/uL (0-1.3) Eosinophils # (Auto) 0.4 10 ^3/uL (0-0.8) Basophils # (Auto) 0.1 10 ^3/uL (0-0.2) Nucleated Red Blood Cells 0.1 % Platelet Estimate Increa Large Platelets Few Hypochromasia (manual) Moderate Anisocytosis (manual) Moderate Microcytosis Moderate Ovalocytes Few [place] Cells Few Sodium Level 128 mmol/L (136-145) Potassium Level 4.0 mmol/L (3.5-5.1) Chloride Level 96 mmol/L (98-107) Carbon Dioxide Level 23 mmol/L (20-31) Anion Gap 9 (5-15) Blood Urea Nitrogen 28 mg/dL (9-23) Creatinine 2.38 mg/dL (0.550-1.02) Glomerular Filtration Rate Calc 21 mL/min (>90) BUN/Creatinine Ratio 11.8 (10.0-20.0) Serum Glucose 84 mg/dL (74-106) Calcium Level 8.9 mg/dL (8.7-10.4) Total Bilirubin 0.8 mg/dL (0.2-1.0) Aspartate Amino Transferase (AST) 28 U/L (13-40) Alanine Aminotransferase (ALT) 26 U/L (7-40) Alkaline Phosphatase 92 U/L (46-116) Total Protein 5.4 g/dL (5.7-8.2) Albumin 3.2 g/dL (3.2-4.8) Differential Total Cells Counted 100.0 (100) Neutrophils % (Manual) 69 (37.0-80.0) Band Neutrophils % (Manual) 1 Lymphocytes % (Manual) 18 (10.0-50.0) Monocytes % (Manual) 9 (0-12) Eosinophils % (Manual) 3 (0-7) Basophils % (Manual) 0 (0.0-2.0) Metamyelocytes % (manual) 0 Myelocytes % (Manual) 0 Promyelocytes % (Manual) 0 Blast Cells % (Manual) 0 Reactive Lymphocytes 0 Polychromasia Slight Iron Level 12 ug/dL (50-170) Total Iron Binding Capacity 335 ug/dL (250-425) Percent Iron Saturation 3.6 % (15-50) Ferritin 9.1 ng/mL (10-291) Test 04/10/24 13:16 04/10/24 00:40 04/09/24 18:31 04/09/24 13:45 Influenza Type A Antigen Negative (Negative) Influenza Type B Antigen Negative (Negative) SARS-CoV-2 Antigen (Rapid) Negative (NEGATIVE) Urine Color Straw (Yellow) Urine Clarity Clear (Clear) Urine pH 7.5 (5.0-9.0) Urine Specific [place] 1.007 (1.001-1.035) Urine Protein 2+ (Negative) Urine Ketones Negative (Negative) Urine Blood Negative /uL (Negative) Urine Nitrite Negative (Negative) Urine Bilirubin Negative (Negative) Urine Urobilinogen Normal mg/dL (Negative) Urine Leukocyte Esterase Negative /uL (Negative) Urine RBC <1 /hpf (0 - 4) Urine WBC 1 /hpf (0 - 5) Urine Squamous Epithelial Cells None seen /hpf (<5) Urine Bacteria Few /hpf (None Seen) Urine Creatinine 16.61 mg/dL (30.0-125.0) Urine Protein/Creatinine Ratio 11.82 Urine Glucose 3+ mg/dL (Normal) Urine Total Protein 196.4 mg/dL (1-14) Troponin I High Sensitivity 21 ng/L (</=34) Hemoglobin A1c 6.1 % A1C (<5.7) Vitamin B12 Level 584 pg/mL (211-911) Vitamin D 25-Hydroxy 18.9 ng/mL (30.0-100) Thyroid Stimulating Hormone (TSH) 2.39 uIU/mL (0.55-4.78) Test 04/09/24 13:40 B-Type Natriuretic Peptide 1787.61 pg/mL (0-100) Other Laboratory Tests 04/13/24 05:46 Brief Hx & Hospital Course: A 68-year-old female with a history of heart failure with preserved ejection fraction, stage 3 chronic kidney disease, chronic anemia, hypertension, dyslipidemia, type 2 diabetes, recently resolved scabies, and medical compliance, presented with worsening bilateral lower extremity swelling and shortness of breath over the past week. Her home dose of Lasix has not alleviated her symptoms. She was hospitalized on 02/27/24 for symptomatic anemia and received a blood transfusion. She lives alone, denies smoking, alcohol, or drug use, and is allergic to ibuprofen. Brief hospital course: Patient was diagnosed with symptomatic severe anemia, acute on chronic systolic CHF and YOVANI on CKD, responding to 1 unit of RBC due to hb 6.3 on chronic iron deficiency anemia, also patient was on IV Lasix. Completed echocardiogram which evidenced LVEF 35%, mild LVH, moderate LA enlargement, severe MAC, mild to moderate mitral regurgitation and enlarged RV with mild dysfunction. Patient hemodynamically stable, asymptomatic, with stable hemoglobin (9.3 g/dL), in conditions to be discharged home. Was granted under optimal medical therapy (GDMT: Empaglifliozin, Losartan Finrenone, metoprolol), gave advice on healthy life style habits, and follow up as outpatient with PCP, nephrology and cardiology. General Appearance: Alert, Oriented X3, Cooperative, No acute distress HEENT: Atraumatic, PERRLA, EOMI, Mucous membrane moist/pale Respiratory: clear Cardiovascular: Regular rate, Normal S1, Normal S2, No murmurs, no chest wall tenderness Abdominal: Normal bowel sounds, Soft, No tenderness, No hepatospenomegaly, No masses Extremities: no edema, No clubbing, No cyanosis, Normal pulses, No tenderness/swelling Skin: No rashes, No breakdown, No significant lesion Lower extremity, healing ulcers from itching noted R>L Neuro: Normal gait, Normal speech, Strength at 5/5 X4 ext, Normal tone, Sensation intact, grossly intact cranial nerves. Psych/Mental Status: Mental status NL, Mood NL Case discussed with Dr Huddleston Consults/Reason for consult Nephrology due to YOVANI on CKD Cardiology due to HFrEF Operations or Procedures PATIENT: ALISTAIR CARDOZAT: [id number] UNIT: [id number] : 1955 LOC: TELE ROOM / BED: [address] [place] [address] AGE / SEX: 68 / F ADM STATUS: ADM IN SERVICE 1208 ORDERING PHYSICIAN: JESSICA SANTANA RESIDENT PROCEDURE(s): ECIDC - ECHO 2D MODE CARDIAC DOP REASON: HFpEF exacerbation ORDER NUMBER(s): [id number], ACCESSION NUMBER(s): [id number] APPROVED REPORT EXAM: Two-dimensional and M-mode echocardiogram with Doppler and color Doppler. Blood Pressure: 155/76 mmHg INDICATION HF EF Exacerbation RISK FACTORS Height: 65, Weight: 173 DIMENSIONS LVDd 4.8 (3.8-5.7cm) LA (2D) 4.4 (1.9-4.0cm) Aortic Root 3.2 (2.0- 3.7cm) LVDs 3.4 (2.5-4.0cm) LA (MM) (1.9-4.0cm) Aortic Cusp Exc 1.7 (1.5- 2.0cm) EF (%) 56.7 (55-70%) Rt. Atrium 5.1 (1.9-4.0cm) Asc. Aorta cm IVSd 1.3 (0.7-1.1cm) RV (D) (1.8-2.4cm) PWd 1.4 (0.7-1.1cm) Mitral Valve Mitral Mitral Stenosis E wave 1.57m/s MV Mean GR. mmHg A wave 1.14m/s MV Peak GR. 102mmHg E/A ratio 1.4 2D MVA cm2 DECEL Time 281ms PRESS 1/2 Time 92ms IVRT ms Dop MVA 2.39cm2 Aortic Valve Aortic Valve Aortic Stenosis V1 0.94m/s AO Mean GR. 5mmHg V2 1.56m/s AO Peak GR. 10mmHg LVOT Diameter 2.2 (1.8-2.4cm) Doppler FAINA 2.29cm2 Pulmonic Valve V2 1.12m/s Tricuspid Valve TR Velocity 3.03m/s RVSP 52mmHg Conclusion lvef 35% by visual estimate mild LVH moderate Left atrium enlarged severe MAC, MS suspected but not fully assessed on this study mild to moderate mitral regurg RV enlarged, mild dysfunction SIGNED BY: KARRIE ESTRELLA MD SIGNED DATE/TIME: 04/10/24 8011 CHEST RADIOGRAPH Indication:sob Technique: Single frontal view of the chest was obtained COMPARISON: XY CHEST PORTABLE on DOS: 10/01/23, XY CHEST PORTABLE on DOS: 07/20/23, XY CHEST PORTABLE on DOS: 01/08/23 FINDINGS: Lines and Tubes: None Lungs: Patchy bilateral airspace disease. Pleura: No effusion. No pneumothorax. Cardiomediastinal contours: Unremarkable Bones: Unremarkable IMPRESSION: Patchy bilateral airspace disease may represent viral pneumonia or pulmonary vascular congestion. ATED BY: MICHAEL SOSA MD DICTATED DATE/TIME: 04/09/24 6441 Clinical History: R LE swelling Comparison: US BILAT LOWER DVT on DOS: 01/08/23 Technique: Duplex Doppler evaluation of the deep venous system of the right lower extremity from the common femoral vein to the popliteal vein including color Doppler and spectral/pulsed waveform analysis was performed. Findings: The common femoral vein demonstrates appropriate compressibility and waveform variability. There is compressibility/patency of the great saphenous vein at the proximal thigh. The femoral vein demonstrates appropriate compressibility and waveform variability. The deep femoral vein demonstrates appropriate compressibility and waveform variability. The popliteal vein demonstrates appropriate compressibility and waveform variability. There is normal compressibility at the tibioperoneal trunk. Impression: No right deep venous thrombosis. If clinical concern/symptoms persist or worsen, short-interval follow-up study is suggested. ATED BY: GUI MARTINEZ MD DICTATED DATE/TIME: 04/10/24 1253 Condition at Discharge: Stable Final Diagnosis/Problems List Iron deficiency microcytic anemia status post transfusion 1 RBCs Acute on chronic systolic heart failure (HFrEF, LVEF 35%) YOVANI, likely hemodynamically mediated/VMN on probable CKD IIIb Chronic hyponatremia, asymptomatic Type 2 diabetes, controlled, HbA1c 6.1 Hypertension Right lower extremity healing ulcers from scabies History of Scabies Vitamin-D deficiency Discharge Disposition: Home SNF Discharge Will this Physician continue t: No Discharge Instruct/Medications Diet: Consistent carbohydrate, Cardiac 2g Na,low cholest Diet comment: fliud restriction, check weight every day Activity: Light activity Follow Up/Referral: pcp in 7 days, f/u dr estrella and nephrology Medications: resume home meds, if you gain 1 or 2 kg increase 1 pill of furosemide Discharge Statement: "Patient was advised to return to the ER or call 911 if any headaches, dizziness, shortness of breath, chest pain, abdominal pain, bleeding, fevers, or worsening of medical condition. Patient was counseled about treatment plan, medications, possible side effects, patientverbalized understanding. All questions were answered to the best of my ability. This discharge took greater then 30 minutes in planning, reviewing documentation, counseling the patient, and discussing with other team members." ASSESSMENT ASSESSMENT Assessment acute anemia acute chf exacerbation Date of Service: Apr 14, 2024 Billing Provider: LIN HUDDLESTON MD Common Visit Codes: 55353-OKQ/OBS DISCH DAY >30min Coding Comment Comment Attending Attestation I saw and evaluated the patient. I reviewed the residents note and agree with findings and plan as documented in the residents note except as documented below. JAMES CABELLO RESIDENT Apr 13, 2024 19:13 LIN HUDDLESTON MD Apr 14, 2024 20:01
== END 2024-04-13 13:40 | disposition home or self-care (01) | DRG 291 ==
LOC: ER 12:26 → TELE 20:21 → EAST 04-10 18:25
PROVIDERS: ADMIT Student in an Organized Health Care Education/Training Program; ATTEND Student in an Organized Health Care Education/Training Program
PROC: 30233N1 Transfusion of Nonautologous Red Blood Cells into Peripheral Vein, Percutaneous Approach (ICD-10-PCS; principal; 2024-04-11)
DX: I13.0 Hypertensive heart and chronic kidney disease with heart failure and stage 1 through stage 4 chronic kidney disease, or unspecified chronic kidney disease (principal); I50.23 Acute on chronic systolic (congestive) heart failure; N17.0 Acute kidney failure with tubular necrosis; E87.1 Hypo-osmolality and hyponatremia; L97.819 Non-pressure chronic ulcer of other part of right lower leg with unspecified severity; I16.1 Hypertensive emergency; Z20.822 Contact with and (suspected) exposure to COVID-19; D50.9 Iron deficiency anemia, unspecified; K29.70 Gastritis, unspecified, without bleeding; N18.32 Chronic kidney disease, stage 3b; E55.9 Vitamin D deficiency, unspecified; B86 Scabies; E11.22 Type 2 diabetes mellitus with diabetic chronic kidney disease; I25.10 Atherosclerotic heart disease of native coronary artery without angina pectoris; J98.4 Other disorders of lung; E78.5 Hyperlipidemia, unspecified; Z82.49 Family history of ischemic heart disease and other diseases of the circulatory system; Z83.3 Family history of diabetes mellitus; Z88.6 Allergy status to analgesic agent
CPT/HCPCS: 36415; 71045; 80048; 80053; 81001; 82306; 82570; 82607; 82728; 82962; 83036; 83540; 83550; 83880; 84156; 84443; 84484; 85007; 85025; 85027; 86850; 86900; 86901; 86920; 87426; 87804; 93005; 93306; 93971; 97163; 99291; G0378; J1815; J2405; J2543

== ENCOUNTER 2024-05-23 19:06 | Inpatient (IN) | payer OTHER, MEDICAID ==
[~2024-05-23] VITALS: Ht 167.6 cm; Wt 71.7 kg
[~2024-05-23 19:06] MED LIST changes: -HYDR-3682 PO; -PER60TP TOP; -SITA50TA PO; -[UNRECOGNIZED DRUG - CODE] IN
--- NOTE | 2024-05-23 19:28 | ED.PDOC ---
SOB-HPI HPI Comments 68Y F with PMHx DM, HTN, HLD, and CHF presents to ED for chief complaint cough x2days with SOB and chest pain. Pt denies fever and sick contact. Pt presents to ED with tenderness upon sternum palpation. 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 Family History Family History: No family hx of Cancer, No family hx of DM, Family hx of heart sean Social History Smoker: Non-Smoker Alcohol: Denies ETOH Use Drugs: Denies Drug Use Lives In: Home Constitutional: denies: chills, diaphoresis, fatigue, fever, malaise, sweats, weakness, others EENTM: denies: blurred vision, double vision, ear bleeding, ear discharge, ear drainage, ear pain, ear ringing, eye pain, eye redness, hearing loss, mouth pain, mouth swelling, nasal discharge, nose bleeding, nose congestion, nose pain, photophobia, tearing, throat pain, throat swelling, voice changes, others Respiratory: reports: cough, shortness of breath; denies: hemoptysis, orthopnea, SOB at rest, SOB with excertion, stridor, wheezing, others Cardiovascular: reports: chest pain; denies: dizzy spells, diaphoresis, Dyspnea on exertion, edema, irregular heart beat, left arm pain, lightheadedness, palpitations, PND, syncope, others Gastrointestinal: denies: abdomen distended, abdominal pain, blood streaked bowels, constipated, diarrhea, dysphagia, difficulty swallowing, hematemesis, melena, nausea, poor appetite, poor fluid intake, rectal bleeding, rectal pain, vomiting, others Genitourinary: denies: abnormal vagina bleeding, burning, dyspareunia, dysuria, flank pain, frequency, hematuria, incontinence, pain, , vagina discharge, urgency, others Neurological: denies: dizziness, fainting, headache, left sided numbness, left sided weakness, numbness, paresthesia, pre-existing deficit, right sided numb ness, right sided weakness, seizure, speech problems, tingling, tremors, weakness, others Musculoskeletal: denies: back pain, gout, joint pain, joint swelling, muscle pain, muscle stiffness, neck pain, others Integumetry: denies: bruises, change in color, change in hair/nails, dryness, laceration, lesions, lumps, rash, wounds, others Allergic/Immunocompromised: denies: Difficulty Healing, Frequent Infections, Hives, Itching, others Hematologic/Lymphatic: denies: anemia, blood clots, easy bleeding, easy bruising, swollen glands, others Endocrine: denies: excessive hunger, excessive sweating, excessive thirst, excessive urination, flushing, intolerance to cold, intolerance to heat, unexplained weight gain, unexplained weight loss, others Psychiatric: denies: anxiety, bipolar disorder, depression, hopeless, panic disorder, schizophrenia, sleepless, suicidal, others All Other Systems: Reviewed and Negative Physical Exam General Appearance: No Apparent Distress, Normal HEENT: Normal ENT Inspection, Pharynx Normal, TMs Normal Neck: Full Range of Motion, Non-Tender, Normal, Normal Inspection Respiratory: Chest Non-Tender, Lungs Clear, No Accessory Muscle Use, No Respiratory Distress, Normal Breath Sounds Cardiovascular: No Edema, No JVD, No Murmur, No Gallop, Normal Peripheral Pulses, Regular Rate/Rhythm Breast Exam: Deferred Gastrointestinal: No Organomegaly, Non Tender, No Pulsatile Mass, Normal Bowel Sounds, Soft Genitalia: Deferred Pelvic: Deferred Rectal: Deferred Extremities: No calf tenderness, Normal capillary refill, Normal inspection, Normal range of motion, Non-tender, No pedal edema Musculoskeletal : Apperance: Normal Neurologic: Alert, fairing man II-XII nml as Tested, No Motor Deficits, Normal Affect, Normal Mood, No Sensory Deficits Cerebellar Function: Normal Reflexes: Normal Skin: Dry, Normal Color, Warm Lymphatic: No Adenopathy Was a procedure done? Was a procedure done?: No Differential Dx Differential Diagnosis: Anxiety, Asthma, Bronchitis, CHF, COPD, Dysrhythmia, Hypertension, Myocardial infarction, Panic Attack, Pneumonia, Respiratory Distress, URI, Other (ANEMIA) X-Ray, Labs, Meds, VS Vital Signs Date Time Temp Pulse Resp B/P (MAP) Pulse Ox O2 Delivery O2 Flow Rate FiO2 05/23/24 19:16 97.9 104 18 178/66 (103) 97 05/23/24 19:11 105 Lab Test 05/23/24 19:43 Range/Units White Blood Count 8.3 4.4-10.8 10^3/uL Red Blood Count 2.72 L 4.0-5.20 10^6/uL Hemoglobin 5.4 *L 12.2-16.2 g/dL Hematocrit 18.3 L 36.0-46.0 % Mean Corpuscular Volume 67.5 L 80.0-100.0 fL Mean Corpuscular Hemoglobin 19.8 L 28.0-32.0 pg Mean Corpuscular Hemoglobin Concent 29.3 L 32.0-36.0 g/dL Red Cell Distribution Width 24.0 H 11.8-14.3 % Platelet Count 501 H 140-450 10^3/uL Mean Platelet Volume 6.6 L 6.9-10.8 fL Neutrophils (%) (Auto) 37.0-80.0 % Lymphocytes (%) (Auto) 10.0-50.0 % Monocytes (%) (Auto) 0.0-12.0 % Basophils (%) (Auto) 0.0-2.0 % Neutrophils # (Auto) 1.6-8.6 10 ^3/uL Lymphocytes # (Auto) 0.4-5.4 10 ^3/uL Monocytes # (Auto) 0-1.3 10 ^3/uL Differential Total Cells Counted 100.0 100 Neutrophils % (Manual) 79 37.0-80.0 Band Neutrophils % (Manual) 0 Lymphocytes % (Manual) 14 10.0-50.0 Monocytes % (Manual) 4 0-12 Eosinophils % (Manual) 3 0-7 Basophils % (Manual) 0 0.0-2.0 Metamyelocytes % (manual) 0 Myelocytes % (Manual) 0 Promyelocytes % (Manual) 0 Blast Cells % (Manual) 0 Reactive Lymphocytes 0 Platelet Estimate Increased Hypochromasia (manual) Marked Anisocytosis (manual) Slight Microcytosis Marked Sodium Level 126 L 136-145 mmol/L Potassium Level 3.7 3.5-5.1 mmol/L Chloride Level 97 L 98-107 mmol/L Carbon Dioxide Level 21 20-31 mmol/L Anion Gap 8 5-15 Blood Urea Nitrogen 23 9-23 mg/dL Creatinine 1.78 H 0.550-1.02 mg/dL Glomerular Filtration Rate Calc 30 >90 mL/min BUN/Creatinine Ratio 12.9 10.0-20.0 Serum Glucose 149 H 74-106 mg/dL Calcium Level 8.9 8.7-10.4 mg/dL Total Bilirubin 0.6 0.2-1.0 mg/dL Aspartate Amino Transferase (AST) 16 13-40 U/L Alanine Aminotransferase (ALT) 20 7-40 U/L Alkaline Phosphatase 110 46-116 U/L Troponin I High Sensitivity 24 </=34 ng/L Total Protein 5.2 L 5.7-8.2 g/dL Albumin 3.3 3.2-4.8 g/dL Time of 1ST Reevaluation: 19:50 Reevaluation 1ST: Unchanged Time of 2ND Reevaluation: 21:10 Reevaluation 2ND: Improved Patient Education/Counseling: Diagnosis, Treatment, Prognosis, Need For Follow Up Family Education/Counseling: No Family Present Additional Information - I reviewed the following notes from patient's past medical encounters: DV discharge 04/13/2024, 02/28/2024, 10/04/2023, 10/01/2023, 07/22/2023 - The following tests were ordered, and results were reviewed by me: EKG x3, CBC, CMP, Troponin x3, rapid influenza A&B, COVID Ag, and CXR - I reviewed and agreed with the following test results read by other provider: CXR - I discussed treatments and results with medical personnel. PT HAS a history of severe anemia which required transfusion. she now has uri symptoms, but also sob exacerbated by her severe anemia again. she has no source of bleed. she will be admitted for transfusion. she also has renal faiure and cxr showing signs of vascular congestion, so she will need close monitoring while receiving blood products Departure 1 Departure Time of Disposition: 21:17 Impression: Primary Impression: Viral syndrome Additional Impressions: Chest pain Qualified Codes: R07.9 - Chest pain, unspecified Severe anemia Renal failure Qualified Codes: N18.9 - Chronic kidney disease, unspecified Pulmonary vascular congestion Hyponatremia Disposition: ADMITTED INPATIENT Admit to: Tele Condition: Serious Critical Care Note Critical Care Time?: Yes (55 min-critical care time only) Critical care comment: due to concerns for patient's condition deteriorating, the care required my highest level of attention and readiness to intervene. i assessed the patient, relevant medical records, ordered the appropriate tests and treatments and communicated with medical personnel and consultants. i reassess the patient's test results and for the response to treatments. i formulated a plan of care. total critical care time excludes any procedures Stability Stability form required: No Heart Score Heart Score: Heart Score Response (Comments) Value History Moderate Suspicious 1 EKG Repolarization Disturb 1 Age >65 2 Risk Factors >3 or Hx ASHD 2 Troponin Normal limit 0 Total 6 I personally scribed for VERONICA NEVES MD ([email or web address]) on 05/23/24 at 19:28. Electronically submitted by Arpita Lea ([email or web address]). VERONICA NEVES MD May 23, 2024 19:28
--- NOTE | 2024-05-23 19:49 | DVH ---
CHEST RADIOGRAPH Indication: CP Technique: Single frontal view of the chest was obtained Comparison: XY CHEST PORTABLE on DOS: 04/09/24, XY CHEST PORTABLE on DOS: 10/01/23, XY CHEST PORTABLE o n DOS: 07/20/23 FINDINGS: Lines and Tubes: None Lungs: Bilateral perihilar fullness with diffuse interstitial prominence. Bronchovascular crowding. Pleura: No effusion. No pneumothorax. Cardiomediastinal contours: Unremarkable Bones: No acute osseous abnormality. IMPRESSION: Bronchovascular crowding with pulmonary vascular congestion.
[2024-05-23 20:05] LABS: Hematocrit 18.3 % (36.0-46.0); Mean Corpuscular Hemoglobin 19.8 pg (28.0-32.0); Mean Corpuscular Hgb Conc. 29.3 g/dL (32.0-36.0); Mean Corpuscular Volume 67.5 fL (80.0-100.0); Platelet Count (auto) 501 10^3/uL (140-450); Red Blood Cells 2.72 10^6/uL (4.0-5.20); White Blood Cell 8.3 10^3/uL (4.4-10.8)
[2024-05-23 20:13] LABS: Alanine Aminotransferase 20 U/L (7-40); Albumin 3.3 g/dL (3.2-4.8); Alkaline Phosphatase 110 U/L (46-116); Anion Gap 8 (5-15); Aspartate Aminotransferase 16 U/L (13-40); BUN/Creatinine Ratio 12.9 (10.0-20.0); Blood Urea Nitrogen 23 mg/dL (9-23); Calcium 8.9 mg/dL (8.7-10.4); Carbon Dioxide 21 mmol/L (20-31); Chloride 97 mmol/L (98-107); Glucose 149 mg/dL (74-106); Potassium 3.7 mmol/L (3.5-5.1); Sodium 126 mmol/L (136-145)
[2024-05-23 20:14] LABS: Bilirubin, Total 0.6 mg/dL (0.2-1.0); Hemoglobin 5.4 g/dL (12.2-16.2)
[2024-05-23 20:15] LABS: Band Neutrophils % (manual) 0; Basophils % (manual) 0 (0.0-2.0); Blast Cells 0; Metamyelocytes % 0; Myelocytes % 0; Promyelocytes % 0; Reactive Lymphocytes 0
[2024-05-23 20:16] LABS: Total Protein 5.2 g/dL (5.7-8.2)
[2024-05-23 20:26] LABS: Eosinophils % (manual) 3 (0-7); Lymphocytes % (manual) 14 (10.0-50.0); Monocytes % (manual) 4 (0-12)
[2024-05-23 20:27] LABS: Anisocytosis Slight; Hypochromia Marked; Platelet Estimate Increased
[2024-05-24] VITALS (13 sets, daily range): BP systolic 155–180; BP diastolic 51–80; PULSE 67–98; RESP 13–24; TEMP 98.1–99.8; O2SAT 98–99
[2024-05-24] MEDS ORDERED: DOCUSATE SOD 100 MG CAP PO PRN (01:15)
[2024-05-24] MEDS: ASPirin 81 mg TAB PO ONE (01:15)
[2024-05-24] MEDS ORDERED: DEXTROSE (50%) 50ML SYRG IV PRN (01:15)
[2024-05-24 02:39] LABS: COVID19 ANTIGEN SOFIA FIA NEGATIVE (NEGATIVE); Rapid Influenza A Negative (Negative); Rapid Influenza B Negative (Negative)
[2024-05-24 04:14] LABS: Eosinophils # (auto) 0.2 10 ^3/uL (0-0.8); Monocytes # (auto) 0.7 10 ^3/uL (0-1.3); Nucleated Red Blood Cells % 0.6 %; Red Blood Cells 2.73 10^6/uL (4.0-5.20); White Blood Cell 8.5 10^3/uL (4.4-10.8)
[2024-05-24 04:17] LABS: Basophils # (auto) 0.1 10 ^3/uL (0-0.2); Basophils % (auto) 1.3 % (0.0-2.0); Eosinophils % (auto) 1.9 % (0.0-7.0); Hematocrit 18.2 % (36.0-46.0); Lymphocytes # (auto) 1.3 10 ^3/uL (0.4-5.4); Lymphocytes % (auto) 15.1 % (10.0-50.0); Mean Corpuscular Hgb Conc. 30.1 g/dL (32.0-36.0); Mean Corpuscular Volume 66.5 fL (80.0-100.0); Monocytes % (auto) 8.4 % (0.0-12.0); Neutrophils # (auto) 6.2 10 ^3/uL (1.6-8.6); Neutrophils % (auto) 73.3 % (37.0-80.0); Platelet Count (auto) 469 10^3/uL (140-450)
[2024-05-24 04:22] LABS: Alanine Aminotransferase 22 U/L (7-40); Albumin 3.4 g/dL (3.2-4.8); Alkaline Phosphatase 106 U/L (46-116); Anion Gap 8 (5-15); Aspartate Aminotransferase 14 U/L (13-40); BUN/Creatinine Ratio 11.4 (10.0-20.0); Bilirubin, Total 0.8 mg/dL (0.2-1.0); Blood Urea Nitrogen 20 mg/dL (9-23); Calcium 9.1 mg/dL (8.7-10.4); Carbon Dioxide 22 mmol/L (20-31); Potassium 3.6 mmol/L (3.5-5.1)
[2024-05-24 04:30] LABS: Chloride 97 mmol/L (98-107); Glucose 132 mg/dL (74-106); Sodium 127 mmol/L (136-145); Total Protein 5.5 g/dL (5.7-8.2)
[2024-05-24 04:50] LABS: Red Cell Distribution Width 23.7 % (11.8-14.3)
[2024-05-24 04:51] LABS: Hemoglobin 5.5 g/dL (12.2-16.2)
--- NOTE | 2024-05-24 04:58 | DVHHP2 ---
History of Present Illness Reason for Visit: Severe anemia History of Present Illness The patient is a 68-year-old female with past medical history of anemia, Coronary artery disease, CHF, DM, hyperlipidemia, and hypertension who presented to [facility] ED with complaint of chest pain. Patient reports symptoms progressively get worse with cough, shortness of breath, getting worse that prompted this visit. Patient was seen and evaluated in the ED, laboratory data shows WBC 8.3, hemoglobin 5.4, hematocrit 18.3, platelets 501, sodium 126, potassium 3.7, BUN 23, creatinine 1.78, GFR 30, glucose 149, troponin 40, blood pressure 178/66, heart rate 104, temperature 97.9 F, O2 saturation 97% on ox ygen. Chest x-ray revealing bronchovascular crowding with pulmonary vascular congestion. Patient will receive 2 units of PRBC, please see medication orders section in the computer. On my assessment, patient denied chest pain at this moment, no headache, no dizziness, no palpitation, no diaphoresis, no nausea, no vomiting, no fever, no chills. Patient was admitted for further evaluation and medical management. Past Medical History Anemia, CAD, CHF, DM, High Lipids, HTN Past Surgical History , Hernia Repair Family History Reviewed, noncontributory to the management of this case. Past Social History The patient lives at home, denies smoking, alcohol or illicit drugs abuse. Review of Systems Constitutional: Yes: Weakness; No: Fever, Chills, Sweats, Malaise, Other Eyes: No: Pain, Vision change, Conjunctivae inflammation, Eyelid inflammation, Other, Redness ENT: No: Ear pain, Ear discharge, Nose pain, Nose discharge, Nose congestion, Mouth pain, Mouth swelling, Throat pain, Throat swelling, Other Respiratory: Cough, Shortness of breath; No: Dry, SOB with excertion, Wheezing, Hemoptysis, Pleuritic Pain, Sputum, Wheezing, Other Cardiovascular: Chest Pain; No: Palpitations, Orthopnea, Paroxysmal Noc. Dyspnea, Edema, Lt Headedness, Other Gastrointestinal: No: Nausea, Vomiting, Abdominal Pain, Diarrhea, Constipation, Melena, Hematochezia, Other Genitourinary: No Dysuria, No Frequency, No Incontinence, No Hematuria, No Retention, No Other Musculoskeletal: No: other, neck pain, shoulder pain, arm pain, back pain, hand pain, leg pain, foot pain Skin: No: Rash, Lesions, Jaundice, Bruising, Other Neurological: No: Weakness, Numbness, Incoordination, Change in speech, Confusion, Seizures, Other Allergies: Coded Allergies: Ibuprofen (Verified Allergy, Unknown, 10/03/23) Medications Current Medications Medications Dose Ordered Sig/Yesenia Route Start Time Stop Time Status Last Admin Dose Admin Aspirin 81 mg DAILY PO 05/25/24 10:00 Hydralazine HCl 10 mg Q6HP PRN IV 05/24/24 01:15 Atorvastatin Calcium 20 mg HS PO 05/24/24 22:00 Diagnostic Test (Pha) 1 strip ACHS 05/24/24 07:00 Insulin Human Regular ACHS SC 05/24/24 07:00 Dextrose 50 ml UD PRN IV 05/24/24 01:15 Sodium Chloride 1,000 ml @ 60 mls/hr [id number] IV 05/24/24 01:15 Acetaminophen/ Hydrocodone Bitart 1 tab Q4HP PRN PO 05/24/24 01:15 Ondansetron HCl 4 mg Q4HP PRN IV 05/24/24 01:15 Docusate Sodium 100 mg BIDPRN PRN PO 05/24/24 01:15 Acetaminophen 650 mg Q6HP PRN PO 05/24/24 01:15 Metoprolol Tartrate 50 mg BID PO 05/24/24 10:00 Exam Vital Signs Vital Signs Date Time Temp Pulse Resp B/P (MAP) Pulse Ox O2 Delivery O2 Flow Rate FiO2 05/23/24 19:16 97.9 104 18 178/66 (103) 97 General Appearance: Alert, Oriented X3, Cooperative, No acute distress HEENT: Atraumatic, PERRLA, EOMI, Mucous membr. moist/pink Respiratory: Normal air movement, Other (Diminished breath sounds) Cardiovascular: Regular rate, Normal S1, Normal S2, No murmurs Abdominal: Normal bowel sounds, Soft, No tenderness, No hepatospenomegaly, No masses Extremities: No clubbing, No cyanosis, No edema, Normal pulses, No tenderness/swelling Skin: No rashes, No breakdown, No significant lesion Neuro: Normal speech, Normal tone, Sensation intact, Cranial nerves 3-12 NL, Reflexes 2+, Other (Generalized weakness) Psych/Mental Status: Mental status NL, Mood NL Labs/Xrays Labs Test 05/24/24 03:24 05/24/24 01:40 05/23/24 22:43 05/23/24 19:43 Range/Units White Blood Count 8.5 4.4-10.8 10^3/uL Red Blood Count 2.73 L 4.0-5.20 10^6/uL Hemoglobin 5.5 *L 12.2-16.2 g/dL Hematocrit 18.2 L 36.0-46.0 % Mean Corpuscular Volume 66.5 L 80.0-100.0 fL Mean Corpuscular Hemoglobin 20.0 L 28.0-32.0 pg Mean Corpuscular Hemoglobin Concent 30.1 L 32.0-36.0 g/dL Red Cell Distribution Width 23.7 H 11.8-14.3 % Platelet Count 469 H 140-450 10^3/uL Mean Platelet Volume 6.1 L 6.9-10.8 fL Neutrophils (%) (Auto) 73.3 37.0-80.0 % Lymphocytes (%) (Auto) 15.1 10.0-50.0 % Monocytes (%) (Auto) 8.4 0.0-12.0 % Eosinophils (%) (Auto) 1.9 0.0-7.0 % Basophils (%) (Auto) 1.3 0.0-2.0 % Neutrophils # (Auto) 6.2 1.6-8.6 10 ^3/uL Lymphocytes # (Auto) 1.3 0.4-5.4 10 ^3/uL Monocytes # (Auto) 0.7 0-1.3 10 ^3/uL Eosinophils # (Auto) 0.2 0-0.8 10 ^3/uL Basophils # (Auto) 0.1 0-0.2 10 ^3/uL Nucleated Red Blood Cells 0.6 % Sodium Level 127 L 136-145 mmol/L Potassium Level 3.6 3.5-5.1 mmol/L Chloride Level 97 L 98-107 mmol/L Carbon Dioxide Level 22 20-31 mmol/L Anion Gap 8 5-15 Blood Urea Nitrogen 20 9-23 mg/dL Creatinine 1.75 H 0.550-1.02 mg/dL Glomerular Filtration Rate Calc 31 >90 mL/min BUN/Creatinine Ratio 11.4 10.0-20.0 Serum Glucose 132 H 74-106 mg/dL Calcium Level 9.1 8.7-10.4 mg/dL Total Bilirubin 0.8 0.2-1.0 mg/dL Aspartate Amino Transferase (AST) 14 13-40 U/L Alanine Aminotransferase (ALT) 22 7-40 U/L Alkaline Phosphatase 106 46-116 U/L B-Type Natriuretic Peptide 3028.60 0-100 pg/mL Total Protein 5.5 L 5.7-8.2 g/dL Albumin 3.4 3.2-4.8 g/dL Influenza Type A Antigen Negative Negative Influenza Type B Antigen Negative Negative SARS-CoV-2 Antigen (Rapid) Negative NEGATIVE Troponin I High Sensitivity 40 *H </=34 ng/L Differential Total Cells Counted 100.0 100 Neutrophils % (Manual) 79 37.0-80.0 Band Neutrophils % (Manual) 0 Lymphocytes % (Manual) 14 10.0-50.0 Monocytes % (Manual) 4 0-12 Eosinophils % (Manual) 3 0-7 Basophils % (Manual) 0 0.0-2.0 Metamyelocytes % (manual) 0 Myelocytes % (Manual) 0 Promyelocytes % (Manual) 0 Blast Cells % (Manual) 0 Reactive Lymphocytes 0 Hypochromasia (manual) Marked Anisocytosis (manual) Slight Microcytosis Marked PATIENT: ALISTAIR CARDOZACCT: [id number] UNIT: [id number] : 1955 LOC: ER ROOM / BED: / AGE / SEX: 68 / F ADM STATUS: REG ER SERVICE 16 ORDERING PHYSICIAN: VERONICA NEVES MD PROCEDURE(s): CXRP - CHEST PORTABLE REASON: CP ORDER NUMBER(s): [id number], ACCESSION NUMBER(s): [id number] CHEST RADIOGRAPH Indication: CP Technique: Single frontal view of the chest was obtained Comparison: XY CHEST PORTABLE on DOS: 04/09/24, XY CHEST PORTABLE on DOS: 10/01/23, XY CHEST PORTABLE on DOS: 07/20/23 FINDINGS: Lines and Tubes: None Lungs: Bilateral perihilar fullness with diffuse interstitial prominence. Bronchovascular crowding. Pleura: No effusion. No pneumothorax. Cardiomediastinal contours: Unremarkable Bones: No acute osseous abnormality. IMPRESSION: Bronchovascular crowding with pulmonary vascular congestion. Assessment/Plan Assessment/Plan Severe anemia Acute chest pain Hyponatremia Generalized weakness Acute renal failure Chest pain, unspecified Chronic kidney disease, unspecified Pulmonary vascular congestion Plan 1. Admit to telemetry unit 2. Breathing treatment 3. Pain control management 4. Management of fluids and electrolytes 5. Consultation for hospitalist 6. Diagnostic tests chest x-ray 7. DVT prophylaxis-on SCDs 8. Repeat labs CBC, CMP in a.m. 9. Continue with current medical management 10. Treatment plan discussed with patient and RN. Patient verbalized understanding. Plan discussed with: Patient, Other (RN) My Orders Orders - LIBBY LONG DNP Procedure Category Date Status Time Consistent DIET 05/24/24 Transmitted Carb(Ccho)Diabetes Breakfast *[facility] CONS 05/24/24 Transmitted -[place] 01:09 Complete Blood Count LAB 05/24/24 In Process 04:00 Hydralazine Injection PHA 05/24/24 In Process (Apresoline Inject 01:15 Atorvastatin (Lipitor) PHA 05/24/24 In Process 22:00 Glucose Blood PHA 05/24/24 In Process (Accu-Chek Comfort 07:00 Insulin R (Human) PHA 05/24/24 In Process (Insulin R) 07:00 Dextrose 50% Syringe PHA 05/24/24 In Process 01:15 Allergies ASIF 05/24/24 In Process 01:09 Code Status CODE 05/24/24 Transmitted 01:09 Sodium Chloride 0.9% PHA 05/24/24 In Process 01:15 Oxygen Per Hour RT 05/24/24 Transmitted 01:09 Hydrocodone-Acet PHA 05/24/24 In Process 5/325mg Tab ([place] 01:15 Ondansetron Hcl PHA 05/24/24 In Process (Zofran) 01:15 Docusate Sodium PHA 05/24/24 In Process Capsule (Colace 01:15 Complete Blood Count LAB 05/25/24 Verified 04:00 Comprehensive LAB 05/25/24 Verified Metabolic Panel 04:00 Condition: Serious ASIF 05/24/24 In Process 01:09 Acetaminophen Tablet PHA 05/24/24 In Process (Tylenol Tablet) 01:15 Bedrest With Bathroom ASIF 05/24/24 In Process Privileg 01:09 Sequential ASIF 05/24/24 In Process Compression Device Metoprolol Tartrate PHA 05/24/24 In Process Tablet (Lopressor Ta 10:00 Aspirin Tablet PHA 05/25/24 In Process 10:00 Rbc Morphology LAB 05/24/24 In Process 03:24 Admit ADMIT 05/24/24 Verified 04:55 Nitroglycerin [facility] 05/24/24 Verified Sublingual (Ntrostat 05:00 Morphine Sulfate [facility] 05/24/24 Verified Injection 05:00 Notify Of Changes [facility] 05/24/24 Verified From Base 04:55 Archivist For [facility] 05/24/24 Verified 24 Hours 04:55 Emergency Dysrhythmia [facility] 05/24/24 Verified Protocol 04:55 Rhythm Strips Once [facility] 05/24/24 Verified Every Shift 04:55 Oxygen By Nasal 05/24/24 Verified Cannula 04:55 Problem List: (1) Severe anemia (2) Acute chest pain (3) Hyponatremia (4) Generalized weakness (5) Pulmonary vascular congestion (6) Chest pain, unspecified (7) Acute renal failure (8) Chronic kidney disease, unspecified Date of Service: May 24, 2024 Billing Provider: LIBBY LONG DNP Common Visit Codes: [id number] INP/OBS CARE (HIGH) LIBBY LONG DNP May 24, 2024 04:58
[2024-05-24] MEDS ORDERED: MORPHINE SULFATE INJ 2 MG/ml SYRG IV PRN (05:00)
[2024-05-24] MEDS ORDERED: NITROGLYCERIN 0.4 MG SL TAB SL PRN (05:00)
[2024-05-24 05:50] LABS: Anisocytosis Slight; Hypochromia Marked
[2024-05-24 05:51] LABS: Large Platelets MODERATE; Platelet Estimate Increa; Stomatocytes Few
[2024-05-24 05:52] LABS: Ovalocytes FEW
[2024-05-24] MEDS: InsuLIN REG 1unit/0.01ml Soln (100units/ml) SC SCH (06:22)
[2024-05-24] MEDS: ACCU-CHEK COMFORT CURVE STRIP VI SCH (06:23)
[2024-05-24] MEDS: SODIUM CHLORIDE 0.9% 1,000 ML IV SCH (06:38)
[2024-05-24] MEDS: METOPROLOL TARTRATE 50 MG TAB PO SCH (09:35)
[2024-05-24] MEDS: hydrALAZINE HCL 20 MG/ML VL IV PRN (13:28)
[2024-05-24] MEDS: HYDROcodone-ACET 5/325MG TAB PO PRN (20:09)
[2024-05-24] MEDS: ONDANSETRON HCL 4 MG/2 ML VIAL IV PRN (20:44)
[2024-05-24] MEDS: ATORVASTATIN 20 MG TAB PO SCH (20:49)
--- NOTE | 2024-05-24 23:48 | DVHPN2 ---
Subjective Patient feels significant improvement in symptoms after receiving 2 units PRBC. Patient endorses ongoing treatment for scabies. Patient declines any epistaxis on this visit. She endorses having dark stools. Reviewed: H&P Changes from previous H/P or p: No Changes General: Per HPI Objective Vitals Vital Signs Date Time Temp Pulse Resp B/P (MAP) Pulse Ox O2 Delivery O2 Flow Rate FiO2 05/24/24 21:00 99.3 85 19 173/79 (110) 99 99.3 05/24/24 20:00 Room Air* 0 21 Exam GEN: Healthy appearing, well-developed, NAD. HEENT: NC/AT; MMM. CV: RRR, no m/r/g. LUNGS: CTAB, no w/r/c. ABD: Soft, NT/ND, NBS, no masses or organomegaly. EXT: Scabies rash in feet bilaterally NEURO: Ambulating with no limitations. No focal deficits. Medications Current Medications Medications Dose Ordered Sig/Yesenia Route Start Time Stop Time Status Last Admin Dose Admin Aspirin 81 mg DAILY PO 05/25/24 10:00 Hydralazine HCl 10 mg Q6HP PRN IV 05/24/24 01:15 05/24/24 19:02 10 MG Atorvastatin Calcium 20 mg HS PO 05/24/24 22:00 05/24/24 20:49 20 MG Diagnostic Test (Pha) 1 strip ACHS 05/24/24 07:00 05/24/24 20:59 1 STRIP Insulin Human Regular ACHS SC 05/24/24 07:00 05/24/24 20:58 3 UNITS Dextrose 50 ml UD PRN IV 05/24/24 01:15 Sodium Chloride 1,000 ml @ 60 mls/hr [id number] IV 05/24/24 01:15 Acetaminophen/ Hydrocodone Bitart 1 tab Q4HP PRN PO 05/24/24 01:15 05/24/24 20:09 1 TAB Ondansetron HCl 4 mg Q4HP PRN IV 05/24/24 01:15 05/24/24 20:44 4 MG Docusate Sodium 100 mg BIDPRN PRN PO 05/24/24 01:15 Acetaminophen 650 mg Q6HP PRN PO 05/24/24 01:15 Metoprolol Tartrate 50 mg BID PO 05/24/24 10:00 05/24/24 20:49 50 MG Nitroglycerin 0.4 mg Q5MINP PRN SL 05/24/24 05:00 Morphine Sulfate 2 mg Q30M PRN IV 05/24/24 05:00 Laboratory Results Laboratory Tests 05/24/24 03:24 Chemistry Test 05/24/24 03:24 Albumin 3.4 g/dL (3.2-4.8) Calcium Level 9.1 mg/dL (8.7-10.4) Total Protein 5.5 g/dL (5.7-8.2) L Cardiac Markers Test 05/24/24 03:24 B-Type Natriuretic Peptide 3028.60 pg/mL (0-100) LFT Test 05/24/24 03:24 Alanine Aminotransferase (ALT) 22 U/L (7-40) Alkaline Phosphatase 106 U/L (46-116) Aspartate Amino Transferase (AST) 14 U/L (13-40) Total Bilirubin 0.8 mg/dL (0.2-1.0) Labs and/or images reviewed: Labs reviewed by me, Image(s) reviewed by me Assessment/Plan Assessment/Plan #Severe anemia - patient history of anemia requiring recurrent transfusions, causes being CKD, epistaxis. This visit she does not have epistaxis but has anemia again. Patient endorses dark stools. hemoglobin 5.4, SP 2 units PRBC. Repeat H&H next a.m. SOB pending # NSTEMI: Likely due to anemia type 2 # hyponatremia - likely from volume depletion versus CHF. We will repeat fluids if needed # chronic thrombocytosis unknown source of cause. Defer to outpatient #recent occurrence of scabies continue home medication, protocol for contact isolation # volume overload possible-CXR with pulmonary vascular congestion. # history of epistaxis - patient HEENT has retired, needs new HEENT defer to primary. No current epistaxis noted. # HFrEF on GDM T - continue medications not affecting blood pressure # CKD - creatinine at baseline # diabetes - start on mild a.c. HS SSI # hypertension - hold home meds if blood pressure low, otherwise continue home meds # hyperlipidemia continue home meds Diet diabetic DVT prophylaxis-SCDs GI prophylaxis IV PPI b.i.d. Med surge Full code Plan discussed with: Patient Date of Service: May 24, 2024 Billing Provider: RICK SINCLAIR MD Common Visit Codes: [id number] INP/OBS CARE(HIGH) RICK SINCLAIR MD May 24, 2024 23:48
[2024-05-25] VITALS (8 sets, daily range): BP systolic 138–163; BP diastolic 63–76; PULSE 64–75; RESP 16–20; TEMP 98–99.8; O2SAT 90–98
[2024-05-25] MEDS: SODIUM CHLORIDE 0.9% 1,000 ML IV SCH (00:30)
[2024-05-25] MEDS: EMPAGLIFLOZIN 10 MG TAB PO SCH (06:34)
[2024-05-25] MEDS ORDERED: ASPirin 81 mg TAB PO SCH (10:00)
[2024-05-25] MEDS ORDERED: HYDRALAZINE HCL 100 MG PO SCH (10:00)
[2024-05-25] MEDS ORDERED: PATIENTS OWN MEDICATION (Losartan Potassium 100 MG) PO SCH (10:00)
[2024-05-25] MEDS ORDERED: PERMETHRIN 5 % TOPICAL CREAM 60GM TOP SCH (10:00)
[2024-05-25 11:03] LABS: Basophils # (auto) 0.1 10 ^3/uL (0-0.2); Basophils % (auto) 0.6 % (0.0-2.0); Lymphocytes # (auto) 0.6 10 ^3/uL (0.4-5.4); Mean Corpuscular Hemoglobin 21.2 pg (28.0-32.0); Mean Corpuscular Volume 70.2 fL (80.0-100.0); Monocytes # (auto) 0.9 10 ^3/uL (0-1.3)
[2024-05-25 11:06] LABS: Eosinophils # (auto) 0.2 10 ^3/uL (0-0.8); Eosinophils % (auto) 1.5 % (0.0-7.0); Hematocrit 25.4 % (36.0-46.0); Hemoglobin 7.7 g/dL (12.2-16.2); Lymphocytes % (auto) 5.1 % (10.0-50.0); Mean Corpuscular Hgb Conc. 30.2 g/dL (32.0-36.0); Monocytes % (auto) 7.9 % (0.0-12.0); Neutrophils # (auto) 9.6 10 ^3/uL (1.6-8.6); Neutrophils % (auto) 84.9 % (37.0-80.0); Nucleated Red Blood Cells % 1.5 %; Platelet Count (auto) 404 10^3/uL (140-450); Red Blood Cells 3.62 10^6/uL (4.0-5.20); Red Cell Distribution Width 23.8 % (11.8-14.3); White Blood Cell 11.2 10^3/uL (4.4-10.8)
--- NOTE | 2024-05-25 11:08 | DVHPN2 ---
Progress Note Date Seen: May 25, 2024 Medical Necessity Reason Pt with a Central, PICC or Fol: No Subjective Patient reports: No new complaints Review of Systems: HEENT:Normal, CVS:Normal, RESPIRATORY:Normal, GI:Normal, :Normal, MSK:Normal, NEURO:Normal Objective vital signs Vital Sign Date Time Temp Pulse Resp B/P (MAP) Pulse Ox O2 Delivery O2 Flow Rate FiO2 05/25/24 09:00 98.4 67 20 138/67 (90) 90 98.4 05/24/24 20:00 Room Air* 0 21 Total Intake and Output 05/24/24 05/24/24 05/25/24 15:00 23:00 07:00 Intake Total 600 ml 1000 ml Balance 600 ml 1000 ml medications Current Medications Medications Dose Ordered Sig/Yesenia Route Start Time Stop Time Status Last Admin Dose Admin Hydralazine HCl 10 mg Q6HP PRN IV 05/24/24 01:15 05/24/24 19:02 10 MG Atorvastatin Calcium 20 mg HS PO 05/24/24 22:00 05/24/24 20:49 20 MG Diagnostic Test (Pha) 1 strip ACHS 05/24/24 07:00 05/25/24 06:34 1 STRIP Insulin Human Regular ACHS SC 05/24/24 07:00 05/24/24 20:58 3 UNITS Dextrose 50 ml UD PRN IV 05/24/24 01:15 Acetaminophen/ Hydrocodone Bitart 1 tab Q4HP PRN PO 05/24/24 01:15 05/25/24 03:41 1 TAB Ondansetron HCl 4 mg Q4HP PRN IV 05/24/24 01:15 05/24/24 20:44 4 MG Docusate Sodium 100 mg BIDPRN PRN PO 05/24/24 01:15 Acetaminophen 650 mg Q6HP PRN PO 05/24/24 01:15 Metoprolol Tartrate 50 mg BID PO 05/24/24 10:00 05/24/24 20:49 50 MG Nitroglycerin 0.4 mg Q5MINP PRN SL 05/24/24 05:00 Morphine Sulfate 2 mg Q30M PRN IV 05/24/24 05:00 Empaglifozin 10 mg QAM PO 05/25/24 07:00 05/25/24 06:34 10 MG Pantoprazole Sodium 40 mg DAILY PO 05/25/24 10:00 Hydralazine HCl 100 mg BID PO 05/25/24 10:00 Losartan Potassium 100 mg DAILY PO 05/25/24 10:00 Furosemide 40 mg DAILY IV 05/26/24 10:00 UNV Examination: GENERAL:Normal, HEENT:Normal, NECK:Normal, LUNGS:Normal, CVS:Normal, ABDOMEN:Normal, MSK:Normal, MSK:Abnormal (edema++), SKIN:Normal, NEURO:Normal, :Normal laboratory and microbiology Test 05/25/24 10:39 Range/Units Serum Glucose Pending Problem List/Assessment/Plan Problem List/Assessment/Plan #1 severe anemia: transfuse, repeat\ #2 acute on chronic diastolic/systolic heart failure: lasix iv #3 dm: ssi #4 htn #5 ckd stage 3b #6 skin rash #7 cad #8 hyponatremia advance care planning-full code- time spent 19 mins Plan discussed with: Patient My Orders My Orders Orders - KERA BOLTON MD Procedure Category Date Status Time Furosemide Injection PHA 05/25/24 Logged (Lasix Injection) 11:00 Furosemide Injection PHA 05/26/24 Logged (Lasix Injection) 10:00 Urinalysis LAB 05/25/24 Uncollected 10:57 Basic Metabolic Panel LAB 05/26/24 Verified 06:00 Complete Blood Count LAB 05/26/24 Verified 06:00 PTPTT LAB 05/26/24 Verified 04:00 Stool Occult Blood LAB 05/25/24 Uncollected 10:57 Date of Service: May 25, 2024 Billing Provider: KERA BOLTON MD Common Visit Codes: [id number] INP/OBS CARE(HIGH) Secondary Visit Codes: [id number] CARE PLAN 30 MINUTES KERA BOLTON MD May 25, 2024 11:08
[2024-05-25 11:13] LABS: Alanine Aminotransferase 15 U/L (7-40); Albumin 3.3 g/dL (3.2-4.8); Alkaline Phosphatase 100 U/L (46-116); Anion Gap 4 (5-15); BUN/Creatinine Ratio 12.6 (10.0-20.0); Bilirubin, Total 1.1 mg/dL (0.2-1.0); Calcium 9.1 mg/dL (8.7-10.4); Carbon Dioxide 24 mmol/L (20-31); Potassium 4.3 mmol/L (3.5-5.1)
[2024-05-25] MEDS ORDERED: hydrOXYzine HCL 10 MG TAB PO PRN (11:15)
[2024-05-25 11:17] LABS: Aspartate Aminotransferase 13 U/L (13-40); Blood Urea Nitrogen 24 mg/dL (9-23); Chloride 95 mmol/L (98-107); Glucose 175 mg/dL (74-106); Sodium 123 mmol/L (136-145); Total Protein 5.3 g/dL (5.7-8.2)
[2024-05-25] MEDS: PANTOPRAZOLE 40 MG TAB PO SCH (11:55)
[2024-05-25] MEDS: LOSARTAN POTASSIUM 50 MG TAB PO SCH (11:56)
[2024-05-25] MEDS: FUROSEMIDE 40 MG/4 ML VIAL IV ONE (11:56)
[2024-05-25] MEDS: hydrALAZINE HCL 25 MG TAB PO SCH (11:56)
--- NOTE | 2024-05-25 12:05 | DVHINCON2 ---
Date of service: May 25, 2024 Referring Physician Maikel Layne, nurse practitioner Reason for Consultation Acute kidney injury History of Present Illness Patient is a 68-year-old female with past medical history significant for Anemia, CAD, CHF, DM, High Lipids, and HTN is admitted for few days of cough and shortness of breath. On admission patient found to have elevated BUN and creatinine nephrology is consulted for acute kidney injury Past Medical History PAST MEDICAL HISTORY: Anemia, CAD, CHF, DM, High Lipids, HTN Past Surgical History Surgical History: , Hernia Repair Allergies: Coded Allergies: Ibuprofen (Verified Allergy, Unknown, 10/03/23) Home Meds Active Scripts Ferrous Sulfate (Ferrous Sulfate) 325 Mg Tab, 1 TAB PO EVERY OTHER DAY for 30 Days, #15 TAB Prov:LIN MADRIGAL MD 02/28/24 Pantoprazole Sodium Sesquihydr (Protonix) 40 Mg Tab, 40 MG PO DAILY, #30 TAB 5 Refills Prov:RUFION REARDON MD 10/04/23 Ergocalciferol (VITAMIN D 42002 UNIT) 50,000 [place], [address] UNIT PO Q7D for 12 Days, #12 CAP Prov:MABEL GUZMAN MD 01/11/23 Empagliflozin (Jardiance) 10 Mg Tab, 10 MG PO QAM for 30 Days, #30 TAB Prov:MABEL GUZMAN MD 01/11/23 Reported Medications Hydralazine Hcl (Hydralazine Hcl) 50 Mg Tab, 100 MG PO BID 10/03/23 Furosemide (Furosemide) 40 Mg Tab, 1 TAB PO DAILY 10/03/23 Finerenone (Kerendia) 10 Mg Tab, 1 TAB PO DAILY 10/01/23 Metoprolol Succinate (Metoprolol Succinate Er) 100 Mg Tab, 1 TAB PO DAILY 10/01/23 Losartan Potassium (Losartan Potassium) 100 Mg Tab, 100 MG PO DAILY for 30 Days, MG 07/12/21 Current Medications Current Medications Medications (Trade) Dose Ordered Sig/Yesenia Route PRN Reason Start Time Stop Time Status Last Admin Aspirin 81 mg DAILY PO 05/25/24 10:00 05/25/24 11:02 DC Atorvastatin Calcium (Lipitor) 20 mg HS PO 05/24/24 22:00 05/24/24 20:49 Permethrin (Elimite) 1 applic MWF [facility] 05/25/24 10:00 05/25/24 11:02 DC Empaglifozin (Jardiance) 10 mg QAM PO 05/25/24 07:00 05/25/24 06:34 Pantoprazole Sodium (Protonix Tablet) 40 mg DAILY PO 05/25/24 10:00 05/25/24 11:55 Patient Own Medication 100 mg BID PO 05/25/24 10:00 05/25/24 00:28 DC Patient Own Medication 100 mg DAILY PO 05/25/24 10:00 05/25/24 00:29 DC Sodium Chloride 1,000 ml @ 150 mls/hr Q6H40M IV 05/25/24 00:30 05/25/24 06:00 DC Hydralazine HCl (Apresoline Tablet) 100 mg BID PO 05/25/24 10:00 05/25/24 11:56 Losartan Potassium (Cozaar Tablet) 100 mg DAILY PO 05/25/24 10:00 05/25/24 11:56 Furosemide (Lasix Injection) 40 mg DAILY IV 05/26/24 10:00 Iron Sucrose 110 ml @ 110 mls/hr DAILY@1200 IV 05/25/24 12:00 05/29/24 12:59 05/25/24 14:49 Hydroxyzine HCl (Vistaril Oral) 10 mg Q6HP PRN PO FOR ITCHING 05/25/24 11:15 Family History: FH: congestive heart failure G8 MOTHER, Family history: Cardiovascular disease G8 SISTER, Onset:50's - 60 Family history: Diabetes mellitus G8 MOTHER, , Onset:50's - 60 G8 SISTER, Onset:40's - 50 Review of Systems All 12 item review of systems reviewed with the patient nonsignificant except what is mentioned in the history of present illness H&P Exam Vital Signs/I&O Vital Sign Date Time Temp Pulse Resp B/P (MAP) Pulse Ox O2 Delivery O2 Flow Rate FiO2 05/25/24 13:00 98.1 70 20 144/76 (98) 97 98.1 05/24/24 20:00 Room Air* 0 21 Intake and Output 05/24/24 05/25/24 19:00 07:00 Intake Total 600 ml 1000 ml Balance 600 ml 1000 ml Intake Oral 1000 ml Blood Product 600 ml Physical Exam Patient is awake and alert Lung: clear b/l COR: RRR GI: WNL : Nl Ext: 1+ edema Neuro: nonfocal Labs/Diagnostic Data Labs/Diagnostic Data Laboratory Tests Test 05/25/24 11:32 05/25/24 10:39 05/25/24 06:30 05/25/24 04:44 Range/Units POC Glucose 194 H 121 H 70-106 mg/dl White Blood Count 11.2 #H 4.4-10.8 10^3/uL Red Blood Count 3.62 L 4.0-5.20 10^6/uL Hemoglobin 7.7 #L 12.2-16.2 g/dL Hematocrit 25.4 #L 36.0-46.0 % Mean Corpuscular Volume 70.2 #L 80.0-100.0 fL Mean Corpuscular Hemoglobin 21.2 L 28.0-32.0 pg Mean Corpuscular Hemoglobin Concent 30.2 L 32.0-36.0 g/dL Red Cell Distribution Width 23.8 H 11.8-14.3 % Platelet Count 404 140-450 10^3/uL Mean Platelet Volume 6.4 L 6.9-10.8 fL Neutrophils (%) (Auto) 84.9 H 37.0-80.0 % Lymphocytes (%) (Auto) 5.1 L 10.0-50.0 % Monocytes (%) (Auto) 7.9 0.0-12.0 % Eosinophils (%) (Auto) 1.5 0.0-7.0 % Basophils (%) (Auto) 0.6 0.0-2.0 % Neutrophils # (Auto) 9.6 H 1.6-8.6 10 ^3/uL Lymphocytes # (Auto) 0.6 0.4-5.4 10 ^3/uL Monocytes # (Auto) 0.9 0-1.3 10 ^3/uL Eosinophils # (Auto) 0.2 0-0.8 10 ^3/uL Basophils # (Auto) 0.1 0-0.2 10 ^3/uL Nucleated Red Blood Cells 1.5 % Platelet Estimate Adequate Hypochromasia (manual) Moderate Anisocytosis (manual) Slight Microcytosis Slight Sodium Level 123 L 136-145 mmol/L Potassium Level 4.3 3.5-5.1 mmol/L Chloride Level 95 L 98-107 mmol/L Carbon Dioxide Level 24 20-31 mmol/L Anion Gap 4 L 5-15 Blood Urea Nitrogen 24 H 9-23 mg/dL Creatinine 1.91 H 0.550-1.02 mg/dL Glomerular Filtration Rate Calc 28 >90 mL/min BUN/Creatinine Ratio 12.6 10.0-20.0 Serum Glucose 175 H 74-106 mg/dL Hemoglobin A1c 5.5 <5.7 % A1C Calcium Level 9.1 8.7-10.4 mg/dL Phosphorus Level 3.7 2.4-5.1 mg/dL Magnesium Level 2.0 1.6-2.6 mg/dL Total Bilirubin 1.1 H 0.2-1.0 mg/dL Aspartate Amino Transferase (AST) 13 13-40 U/L Alanine Aminotransferase (ALT) 15 7-40 U/L Alkaline Phosphatase 100 46-116 U/L Total Protein 5.3 L 5.7-8.2 g/dL Albumin 3.3 3.2-4.8 g/dL Parathyroid Hormone (Intact) 135.0 H 18.4-80.1 pg/mL Test 05/24/24 20:56 05/24/24 17:51 05/24/24 11:21 05/24/24 06:21 Range/Units POC Glucose 173 H 162 H 132 H 130 H 70-106 mg/dl Test 05/24/24 03:24 05/24/24 01:40 05/23/24 22:43 05/23/24 20:55 Range/Units White Blood Count 8.5 4.4-10.8 10^3/uL Red Blood Count 2.73 L 4.0-5.20 10^6/uL Hemoglobin 5.5 *L 12.2-16.2 g/dL Hematocrit 18.2 L 36.0-46.0 % Mean Corpuscular Volume 66.5 L 80.0-100.0 fL Mean Corpuscular Hemoglobin 20.0 L 28.0-32.0 pg Mean Corpuscular Hemoglobin Concent 30.1 L 32.0-36.0 g/dL Red Cell Distribution Width 23.7 H 11.8-14.3 % Platelet Count 469 H 140-450 10^3/uL Mean Platelet Volume 6.1 L 6.9-10.8 fL Neutrophils (%) (Auto) 73.3 37.0-80.0 % Lymphocytes (%) (Auto) 15.1 10.0-50.0 % Monocytes (%) (Auto) 8.4 0.0-12.0 % Eosinophils (%) (Auto) 1.9 0.0-7.0 % Basophils (%) (Auto) 1.3 0.0-2.0 % Neutrophils # (Auto) 6.2 1.6-8.6 10 ^3/uL Lymphocytes # (Auto) 1.3 0.4-5.4 10 ^3/uL Monocytes # (Auto) 0.7 0-1.3 10 ^3/uL Eosinophils # (Auto) 0.2 0-0.8 10 ^3/uL Basophils # (Auto) 0.1 0-0.2 10 ^3/uL Nucleated Red Blood Cells 0.6 % Platelet Estimate Increa Large Platelets Moderate Hypochromasia (manual) Marked Anisocytosis (manual) Slight Microcytosis Marked Ovalocytes Few Stomatocytes Few [place] Cells Few Sodium Level 127 L 136-145 mmol/L Potassium Level 3.6 3.5-5.1 mmol/L Chloride Level 97 L 98-107 mmol/L Carbon Dioxide Level 22 20-31 mmol/L Anion Gap 8 5-15 Blood Urea Nitrogen 20 9-23 mg/dL Creatinine 1.75 H 0.550-1.02 mg/dL Glomerular Filtration Rate Calc 31 >90 mL/min BUN/Creatinine Ratio 11.4 10.0-20.0 Serum Glucose 132 H 74-106 mg/dL Calcium Level 9.1 8.7-10.4 mg/dL Total Bilirubin 0.8 0.2-1.0 mg/dL Aspartate Amino Transferase (AST) 14 13-40 U/L Alanine Aminotransferase (ALT) 22 7-40 U/L Alkaline Phosphatase 106 46-116 U/L B-Type Natriuretic Peptide 3028.60 0-100 pg/mL Total Protein 5.5 L 5.7-8.2 g/dL Albumin 3.4 3.2-4.8 g/dL Influenza Type A Antigen Negative Negative Influenza Type B Antigen Negative Negative SARS-CoV-2 Antigen (Rapid) Negative NEGATIVE Troponin I High Sensitivity 40 *H 31 </=34 ng/L Test 05/23/24 19:43 Range/Units White Blood Count 8.3 4.4-10.8 10^3/uL Red Blood Count 2.72 L 4.0-5.20 10^6/uL Hemoglobin 5.4 *L 12.2-16.2 g/dL Hematocrit 18.3 L 36.0-46.0 % Mean Corpuscular Volume 67.5 L 80.0-100.0 fL Mean Corpuscular Hemoglobin 19.8 L 28.0-32.0 pg Mean Corpuscular Hemoglobin Concent 29.3 L 32.0-36.0 g/dL Red Cell Distribution Width 24.0 H 11.8-14.3 % Platelet Count 501 H 140-450 10^3/uL Mean Platelet Volume 6.6 L 6.9-10.8 fL Neutrophils (%) (Auto) 37.0-80.0 % Lymphocytes (%) (Auto) 10.0-50.0 % Monocytes (%) (Auto) 0.0-12.0 % Basophils (%) (Auto) 0.0-2.0 % Neutrophils # (Auto) 1.6-8.6 10 ^3/uL Lymphocytes # (Auto) 0.4-5.4 10 ^3/uL Monocytes # (Auto) 0-1.3 10 ^3/uL Differential Total Cells Counted 100.0 100 Neutrophils % (Manual) 79 37.0-80.0 Band Neutrophils % (Manual) 0 Lymphocytes % (Manual) 14 10.0-50.0 Monocytes % (Manual) 4 0-12 Eosinophils % (Manual) 3 0-7 Basophils % (Manual) 0 0.0-2.0 Metamyelocytes % (manual) 0 Myelocytes % (Manual) 0 Promyelocytes % (Manual) 0 Blast Cells % (Manual) 0 Reactive Lymphocytes 0 Platelet Estimate Increased Hypochromasia (manual) Marked Anisocytosis (manual) Slight Microcytosis Marked Sodium Level 126 L 136-145 mmol/L Potassium Level 3.7 3.5-5.1 mmol/L Chloride Level 97 L 98-107 mmol/L Carbon Dioxide Level 21 20-31 mmol/L Anion Gap 8 5-15 Blood Urea Nitrogen 23 9-23 mg/dL Creatinine 1.78 H 0.550-1.02 mg/dL Glomerular Filtration Rate Calc 30 >90 mL/min BUN/Creatinine Ratio 12.9 10.0-20.0 Serum Glucose 149 H 74-106 mg/dL Calcium Level 8.9 8.7-10.4 mg/dL Total Bilirubin 0.6 0.2-1.0 mg/dL Aspartate Amino Transferase (AST) 16 13-40 U/L Alanine Aminotransferase (ALT) 20 7-40 U/L Alkaline Phosphatase 110 46-116 U/L Troponin I High Sensitivity 24 </=34 ng/L Total Protein 5.2 L 5.7-8.2 g/dL Albumin 3.3 3.2-4.8 g/dL Assessment Acute kidney injury superimposed Chronic Kidney Disease secondary hemodynamic mediated Congestive heart failure exacerbation Hyponatremia due to excess H2O Significant anemia status post packed red blood cell transfusion Iron deficiency anemia Hypertension Hyperglycemia rule out diabetes mellitus Recommendations Closely monitor fluid and electrolytes Avoid nephrotoxic medications Staples catheter Strict I&Os Check urinalysis urine electrolytes and urine protein excretion Check kidney ultrasound Rule out GI bleeding Stool occult blood GI consult Insulin sliding scale Fluid restrictions Furosemide 40 mg IV q.day We will continue to follow Patient seen and examined by myself. I discussed my plan of care with the patient and primary nurse at the bedside I would like to thank Maikel for the consult, will follow up Plan discussed with: Patient VIJAY CHEEMA MD May 25, 2024 12:05
--- NOTE | 2024-05-25 12:59 | DVH ---
US KIDNEY HISTORY: makayla COMPARISON: US KIDNEY on DOS: 07/21/23, US KIDNEY on DOS: 01/08/23 TECHNIQUE: Transverse and longitudinal grayscale and color Doppler images were obtained of the kidney s and bladder. FINDINGS: Right kidney: Size: 10.7 cm Cortical thickness: Normal Echogenicity: Increased Stones: None Masses: None Hydronephrosis: None Ureters: Not well visualized. Other: None Left kidney: Size: 9.2 cm Cortical thickness: Normal Echogenicity: Increased Stones: None Masses: None Hydronephrosis: None Ureters: Not well visualized. Other: None Bladder: Normal Other: None. IMPRESSION: Echogenic renal corticies can be seen with medical renal disease.
[2024-05-25 13:48] LABS: Phosphorus 3.7 mg/dL (2.4-5.1)
[2024-05-25 14:16] LABS: Hypochromia Moderate
[2024-05-25 14:17] LABS: Anisocytosis Slight
[2024-05-25 14:18] LABS: Platelet Estimate Adequate
[2024-05-25] MEDS: IRON SUCROSE COMPLEX 110 ML IV SCH (14:49)
[2024-05-25 15:28] LABS: Urine Bacteria None Seen /hpf (None Seen)
[2024-05-25 16:48] LABS: Urine Blood Negative /uL (Negative); Urine Clarity Clear (Clear); Urine Color Yellow (Yellow); Urine Protein, UAD 3+ (Negative); Urine Specific Gravity 1.013 (1.001-1.035); Urine Squamous Epithelial Cell FEW /hpf (<5); Urine Urobilinogen Normal (Negative); Urine WBC 1 /hpf (0 - 5)
[2024-05-25 17:03] LABS: Creatinine, Urine 67.74 mg/dL (30.0-125.0); Creatinine, Urine 68.58 mg/dL (30.0-125.0)
[2024-05-25 17:06] LABS: Urine Protein/Creatinine Ratio 9.16
--- NOTE | 2024-05-25 17:19 | DVHCONRES ---
Date Seen: May 25, 2024 Resident Creating Document: ALEJANDRO LEIGH RESIDENT Referring Physician Dr. Rogers Reason for Consultation Severe anemia History of Present Illness This is a 68-year-old female with past medical history of anemia, coronary artery disease, CHF, type 2 diabetes mellitus, hyperlipidemia, hypertension who presented to the ED with chief complaint of acute chest pain. The patient stated that symptoms got progressively worse associated with cough and shortness of breaths. The patient also reports a history of epistaxis that has been going on for years and also reported recent episode of dark red stools associated with constipation. Initial labs on admission showed an hemoglobin of 5.4 which required transfusion of 2 units of red blood cells. Initial BNP was 3028 the patient was having bilateral lower extremity edema. The patient was started on furosemide 40 mg IV daily, empagliflozin 10 mg q.d., metoprolol tartrate 50 mg b.i.d., losartan 100 mg q.d.. The patient was also started on IV iron. Initial chest x-ray was revealing pulmonary vascular congestion most likely due to CHF exacerbation. The patient was admitted for further assessment and management. Patient seen and examined at bedside. Patient states that the shortness of breath and chest pain has improved compared to admission. The patient still has mild bilateral crackles in the lung bases but lower extremity edema has improved significantly. Today, hemoglobin is 7.7 after 2 units of RBCs transfusion. The patient states that she has a past medical history of chronic epistaxis. She also reports that recently she had dark red stools after constipation. Last echocardiogram performed on 04/10/2024 showed an LVEF of 35% with mild to moderate mitral regurgitation. We will continue CHF medical therapy per hospitalist team, send stool occult blood test and stopped regular diet and changed to clear liquid diet. We will also perform bowel preparation for possible colonoscopy tomorrow. The patient had a previous EGD performed on 10/04/2023 which showed gastritis with few gastric erosions, grade a erosive esophagitis and 2nd and 3rd part of duodenum had no active bleeding at that time. We will proceed with colonoscopy once bowel prep is ready. ROS Constitutional: Reports feeling fatigued. Denies weight loss, fever and chills. HEENT: Denies changes in vision and hearing. Respiratory: Denies shortness of breath and cough Cardiovascular: Denies chest discomfort or palpitations GI: Denies abdominal pain, nausea, vomiting and diarrhea. : Denies dysuria and urinary frequency. Musculoskeletal: Denies myalgias and joint pain Skin: Denies rash and pruritus. Neurological: Denies dizziness, headache, vision or hearing problems Past Medical History Past medical history of chronic anemia, coronary artery disease, CHF, type 2 diabetes, hyperlipidemia, hypertension, scabies. Past Surgical History , hernia repair Family History: FH: congestive heart failure G8 MOTHER, Family history: Cardiovascular disease G8 SISTER, Onset:50's - 60 Family history: Diabetes mellitus G8 MOTHER, , Onset:50's - 60 G8 SISTER, Onset:40's - 50 Family History Noncontributory Social History Patient lives at at home, denies smoking, alcohol or illicit drug abuse. Allergies: Coded Allergies: Ibuprofen (Verified Allergy, Unknown, 10/03/23) Home Meds Active Scripts Ferrous Sulfate (Ferrous Sulfate) 325 Mg Tab, 1 TAB PO EVERY OTHER DAY for 30 Days, #15 TAB Prov:LIN MADRIGAL MD 02/28/24 Pantoprazole Sodium Sesquihydr (Protonix) 40 Mg Tab, 40 MG PO DAILY, #30 TAB 5 Refills Prov:RUFINO REARDON MD 10/04/23 Ergocalciferol (VITAMIN D 07423 UNIT) 50,000 [place], [address] UNIT PO Q7D for 12 Days, #12 CAP Prov:MABEL GUZMAN MD 01/11/23 Empagliflozin (Jardiance) 10 Mg Tab, 10 MG PO QAM for 30 Days, #30 TAB Prov:MABEL GUZMAN MD 01/11/23 Reported Medications Hydralazine Hcl (Hydralazine Hcl) 50 Mg Tab, 100 MG PO BID 10/03/23 Furosemide (Furosemide) 40 Mg Tab, 1 TAB PO DAILY 10/03/23 Finerenone (Kerendia) 10 Mg Tab, 1 TAB PO DAILY 10/01/23 Metoprolol Succinate (Metoprolol Succinate Er) 100 Mg Tab, 1 TAB PO DAILY 10/01/23 Losartan Potassium (Losartan Potassium) 100 Mg Tab, 100 MG PO DAILY for 30 Days, MG 07/12/21 Current Medications Current Medications Medications (Trade) Dose Ordered Sig/Yesenia Route PRN Reason Start Time Stop Time Status Last Admin Aspirin 81 mg DAILY PO 05/25/24 10:00 05/25/24 11:02 DC Atorvastatin Calcium (Lipitor) 20 mg HS PO 05/24/24 22:00 05/24/24 20:49 Permethrin (Elimite) 1 applic MWF [facility] 05/25/24 10:00 05/25/24 11:02 DC Empaglifozin (Jardiance) 10 mg QAM PO 05/25/24 07:00 05/25/24 06:34 Pantoprazole Sodium (Protonix Tablet) 40 mg DAILY PO 05/25/24 10:00 05/25/24 11:55 Patient Own Medication 100 mg BID PO 05/25/24 10:00 05/25/24 00:28 DC Patient Own Medication 100 mg DAILY PO 05/25/24 10:00 05/25/24 00:29 DC Sodium Chloride 1,000 ml @ 150 mls/hr Q6H40M IV 05/25/24 00:30 05/25/24 06:00 DC Hydralazine HCl (Apresoline Tablet) 100 mg BID PO 05/25/24 10:00 05/25/24 11:56 Losartan Potassium (Cozaar Tablet) 100 mg DAILY PO 05/25/24 10:00 05/25/24 11:56 Furosemide (Lasix Injection) 40 mg DAILY IV 05/26/24 10:00 Iron Sucrose 110 ml @ 110 mls/hr DAILY@1200 IV 05/25/24 12:00 05/29/24 12:59 05/25/24 14:49 Hydroxyzine HCl (Vistaril Oral) 10 mg Q6HP PRN PO FOR ITCHING 05/25/24 11:15 Review of Systems ROS Constitutional: Reports fatigue. Denies weight loss, fever and chills. HEENT: Denies changes in vision and hearing. Respiratory: Reports very mild shortness of breath but currently saturating fine on room air. Cardiovascular: Denies chest discomfort or palpitations GI: Denies abdominal pain, nausea, vomiting and diarrhea. : Denies dysuria and urinary frequency. Musculoskeletal: Denies myalgias and joint pain Skin: Denies rash and pruritus. Neurological: Denies dizziness, headache, vision or hearing problems Vital Signs Vital Signs Date Time Temp Pulse Resp B/P (MAP) Pulse Ox O2 Delivery O2 Flow Rate FiO2 05/25/24 13:00 98.1 70 20 144/76 (98) 97 98.1 05/24/24 20:00 Room Air* 0 21 Physical Exam Physical Examination General: Patient alert and oriented in person, place and time. Patient following commands. HEENT: Normocephalic, atraumatic, moist mucous membranes Respiratory/pulmonary: There are mild bilateral crackles on lung bases with no evidence of wheezing at this time. Cardiovascular: Normal heart sounds S1 and S2 with no associated murmurs Abdomen: Abdomen nondistended, there is no pain to palpation in any of the abdominal quadrants, no palpable masses. Extremities: There is very mild peripheral edema that has been improving compared to admission. Peripheral Pulses: 3+ Radial (R). 3+ Radial (L). 3+ Dorsalis pedis (R). 3+ Dorsalis pedis(L) Skin: No rashes. Patient has scratches and linear ulcers on bilateral lower extremities associated with itching Neurological: Intact cranial nerves with no focal neurologic deficits Labs/Diagnostic Data Labs Test 05/25/24 15:31 05/25/24 13:15 05/25/24 11:32 05/25/24 10:39 Range/Units Vitamin D 25-Hydroxy 24.1 L 30.0-100 ng/mL Urine Color Yellow Yellow Urine Clarity Clear Clear Urine pH 6.0 5.0-9.0 Urine Specific [place] 1.013 1.001-1.035 Urine Protein 3+ H Negative Urine Ketones Negative Negative Urine Blood Negative Negative /uL Urine Nitrite Negative Negative Urine Bilirubin Negative Negative Urine Urobilinogen Normal Negative mg/dL Urine Leukocyte Esterase Negative Negative /uL Urine RBC 1 0 - 4 /hpf Urine WBC 1 0 - 5 /hpf Urine Squamous Epithelial Cells Few <5 /hpf Urine Bacteria None seen None Seen /hpf Urine Glucose 4+ H Normal mg/dL POC Glucose 194 H 70-106 mg/dl White Blood Count 11.2 #H 4.4-10.8 10^3/uL Red Blood Count 3.62 L 4.0-5.20 10^6/uL Hemoglobin 7.7 #L 12.2-16.2 g/dL Hematocrit 25.4 #L 36.0-46.0 % Mean Corpuscular Volume 70.2 #L 80.0-100.0 fL Mean Corpuscular Hemoglobin 21.2 L 28.0-32.0 pg Mean Corpuscular Hemoglobin Concent 30.2 L 32.0-36.0 g/dL Red Cell Distribution Width 23.8 H 11.8-14.3 % Platelet Count 404 140-450 10^3/uL Mean Platelet Volume 6.4 L 6.9-10.8 fL Neutrophils (%) (Auto) 84.9 H 37.0-80.0 % Lymphocytes (%) (Auto) 5.1 L 10.0-50.0 % Monocytes (%) (Auto) 7.9 0.0-12.0 % Eosinophils (%) (Auto) 1.5 0.0-7.0 % Basophils (%) (Auto) 0.6 0.0-2.0 % Neutrophils # (Auto) 9.6 H 1.6-8.6 10 ^3/uL Lymphocytes # (Auto) 0.6 0.4-5.4 10 ^3/uL Monocytes # (Auto) 0.9 0-1.3 10 ^3/uL Eosinophils # (Auto) 0.2 0-0.8 10 ^3/uL Basophils # (Auto) 0.1 0-0.2 10 ^3/uL Nucleated Red Blood Cells 1.5 % Platelet Estimate Adequate Hypochromasia (manual) Moderate Anisocytosis (manual) Slight Microcytosis Slight Sodium Level 123 L 136-145 mmol/L Potassium Level 4.3 3.5-5.1 mmol/L Chloride Level 95 L 98-107 mmol/L Carbon Dioxide Level 24 20-31 mmol/L Anion Gap 4 L 5-15 Blood Urea Nitrogen 24 H 9-23 mg/dL Creatinine 1.91 H 0.550-1.02 mg/dL Glomerular Filtration Rate Calc 28 >90 mL/min BUN/Creatinine Ratio 12.6 10.0-20.0 Serum Glucose 175 H 74-106 mg/dL Hemoglobin A1c 5.5 <5.7 % A1C Calcium Level 9.1 8.7-10.4 mg/dL Phosphorus Level 3.7 2.4-5.1 mg/dL Magnesium Level 2.0 1.6-2.6 mg/dL Total Bilirubin 1.1 H 0.2-1.0 mg/dL Aspartate Amino Transferase (AST) 13 13-40 U/L Alanine Aminotransferase (ALT) 15 7-40 U/L Alkaline Phosphatase 100 46-116 U/L Total Protein 5.3 L 5.7-8.2 g/dL Albumin 3.3 3.2-4.8 g/dL Test 05/25/24 04:44 05/24/24 03:24 05/24/24 01:40 05/23/24 22:43 Range/Units Parathyroid Hormone (Intact) 135.0 H 18.4-80.1 pg/mL Large Platelets Moderate Ovalocytes Few Stomatocytes Few [place] Cells Few B-Type Natriuretic Peptide 3028.60 0-100 pg/mL Influenza Type A Antigen Negative Negative Influenza Type B Antigen Negative Negative SARS-CoV-2 Antigen (Rapid) Negative NEGATIVE Troponin I High Sensitivity 40 *H </=34 ng/L Test 05/23/24 19:43 Range/Units Differential Total Cells Counted 100.0 100 Neutrophils % (Manual) 79 37.0-80.0 Band Neutrophils % (Manual) 0 Lymphocytes % (Manual) 14 10.0-50.0 Monocytes % (Manual) 4 0-12 Eosinophils % (Manual) 3 0-7 Basophils % (Manual) 0 0.0-2.0 Metamyelocytes % (manual) 0 Myelocytes % (Manual) 0 Promyelocytes % (Manual) 0 Blast Cells % (Manual) 0 Reactive Lymphocytes 0 Assessment Assesment/Plan Acute on chronic severe microcytic/hypochromic anemia -initial hemoglobin was 5.4 which required 2 units of RBCs transfusion -patient was initiated on IV iron -ordered iron panel and ferritin -monitor hemoglobin and hematocrit -patient has chronic history of epistaxis -patient reported dark red blood in the stools likely related to constipation -stopped carbohydrate diet and start clear liquid diet at this time -start bowel preparation for possible colonoscopy tomorrow Possible upper vs lower GI bleed -an EGD was performed on 10/04/2023 showing gastritis with few gastric erosions, grade a erosive esophagitis and 2nd and 3rd part of duodenum had no active bleeding at that time. -patient reported dark red blood in the stools that was grossly visible -we will start bowel preparation for possible colonoscopy Acute on chronic systolic heart failure exacerbation (HFrEF 30%) -last echocardiogram was performed on 04/10/2024 showing an LVEF of 35% with mild to moderate mitral regurgitation. -BNP was 3028 -continue IV furosemide 40 mg daily, metoprolol tartrate 50 mg b.i.d., empagliflozin 10 mg q.a.m. and rest of directed medical therapy per hospitalist. Acute hypoxic respiratory failure likely due to CHF exacerbation -continue management as described above per hospitalist Acute on Chronic kidney disease stage V, likely prerenal vasomotor mediated due to CHF -last creatinine was 1.91, BUN 24 -GFR 28 -nephrology on board Moderate hyponatremia -last sodium levels was 123 -monitor sodium levels and electrolytes per hospitalist Hyperlipidemia -atorvastatin 20 mg q.d. Type 2 diabetes mellitus -sliding scale insulin, managed per hospitalist Primary hypertension -on losartan 100 mg daily, hydralazine 100 mg b.i.d., metoprolol tartrate 50 mg b.i.d., IV furosemide -monitor blood pressure Goals of care discussed with the patient at bedside, full code Plan discussed with Dr. Domínguez Plan discussed with: Patient ALEJANDRO LEIGH RESIDENT May 25, 2024 17:19
[2024-05-25 17:32] LABS: Protein, Urine 628.3 mg/dL (1-14)
[2024-05-25] MEDS: GOLYTELY 4L KIT PO ONE ×2 (17:47→21:15)
[2024-05-25 18:05] LABS: % Iron Saturation 90.8 % (15-50)
[2024-05-25] MEDS: ACETAMINOPHEN 325 MG TAB PO PRN (20:51)
[2024-05-25] MEDS: POLYETHYLENE GLYCOL 17 GM PWDR PO ONE (21:33)
[2024-05-26] VITALS (8 sets, daily range): BP systolic 121–151; BP diastolic 59–73; PULSE 55–70; RESP 16–19; TEMP 97.7–99.6; O2SAT 92–97
[2024-05-26] MEDS: MAGNESIUM CITRATE SOLUTION 300 ML BTL PO ONE (04:19)
[2024-05-26] MEDS: GOLYTELY 4L KIT PO ONE (05:47)
[2024-05-26 07:18] LABS: Potassium 3.9 mmol/L (3.5-5.1)
[2024-05-26 07:19] LABS: Anion Gap 8 (5-15); Calcium 9.1 mg/dL (8.7-10.4); Carbon Dioxide 20 mmol/L (20-31)
[2024-05-26 07:23] LABS: Chloride 95 mmol/L (98-107); Sodium 123 mmol/L (136-145)
[2024-05-26 07:24] LABS: BUN/Creatinine Ratio 11.8 (10.0-20.0); Glucose 98 mg/dL (74-106)
[2024-05-26 07:27] LABS: Basophils # (auto) 0.1 10 ^3/uL (0-0.2); Eosinophils # (auto) 0.2 10 ^3/uL (0-0.8); Lymphocytes # (auto) 0.7 10 ^3/uL (0.4-5.4); Monocytes # (auto) 0.8 10 ^3/uL (0-1.3); White Blood Cell 8.7 10^3/uL (4.4-10.8)
[2024-05-26 07:28] LABS: Basophils % (auto) 0.8 % (0.0-2.0); Eosinophils % (auto) 2.2 % (0.0-7.0); Hematocrit 23.7 % (36.0-46.0); Hemoglobin 7.6 g/dL (12.2-16.2); Lymphocytes % (auto) 7.9 % (10.0-50.0); Mean Corpuscular Hemoglobin 22.3 pg (28.0-32.0); Mean Corpuscular Hgb Conc. 32.2 g/dL (32.0-36.0); Mean Corpuscular Volume 69.3 fL (80.0-100.0); Monocytes % (auto) 9.2 % (0.0-12.0); Neutrophils % (auto) 79.9 % (37.0-80.0); Nucleated Red Blood Cells % 2.5 %; Platelet Count (auto) 363 10^3/uL (140-450); Red Blood Cells 3.42 10^6/uL (4.0-5.20); Red Cell Distribution Width 23.4 % (11.8-14.3)
[2024-05-26 07:34] LABS: INR 1.12 (0.9-1.15); Partial Thromboplastin Time 33.9 SEC (24.5-34.5); Prothrombin Time 11.8 sec (9.3-11.8)
[2024-05-26 07:36] LABS: Blood Urea Nitrogen 25 mg/dL (9-23)
[2024-05-26 09:29] LABS: Anisocytosis Slight; Hypochromia Moderate; Large Platelets MODERATE; Platelet Estimate Adequa
[2024-05-26 09:30] LABS: Stomatocytes Few
[2024-05-26] MEDS: FUROSEMIDE 40 MG/4 ML VIAL IV SCH (10:51)
--- NOTE | 2024-05-26 11:33 | DVHPN2 ---
Progress Note Date Seen: May 26, 2024 Medical Necessity Reason Pt with a Central, PICC or Fol: Yes The following are medically ne: Mendosa Catheter Reason for mendosa catheter: Strict I&O Subjective Patient reports: No new complaints Review of Systems: HEENT:Normal, CVS:Normal, RESPIRATORY:Normal, GI:Normal, :Normal, MSK:Normal, NEURO:Normal Objective vital signs Vital Sign Date Time Temp Pulse Resp B/P (MAP) Pulse Ox O2 Delivery O2 Flow Rate FiO2 05/26/24 10:51 144/73 05/26/24 10:50 62 05/26/24 08:36 98.0 16 95 98.0 05/25/24 20:00 Room Air* 0 21 Total Intake and Output 05/25/24 05/25/24 05/26/24 15:00 23:00 07:00 Intake Total 930 ml 300 ml Output Total 251 ml 500 ml Balance 679 ml -200 ml medications Current Medications Medications Dose Ordered Sig/Yesenia Route Start Time Stop Time Status Last Admin Dose Admin Hydralazine HCl 10 mg Q6HP PRN IV 05/24/24 01:15 05/24/24 19:02 10 MG Atorvastatin Calcium 20 mg HS PO 05/24/24 22:00 05/25/24 21:20 20 MG Diagnostic Test (Pha) 1 strip ACHS 05/24/24 07:00 05/26/24 11:00 1 STRIP Insulin Human Regular ACHS SC 05/24/24 07:00 05/25/24 21:27 3 UNITS Dextrose 50 ml UD PRN IV 05/24/24 01:15 Acetaminophen/ Hydrocodone Bitart 1 tab Q4HP PRN PO 05/24/24 01:15 05/25/24 03:41 1 TAB Ondansetron HCl 4 mg Q4HP PRN IV 05/24/24 01:15 05/24/24 20:44 4 MG Docusate Sodium 100 mg BIDPRN PRN PO 05/24/24 01:15 Acetaminophen 650 mg Q6HP PRN PO 05/24/24 01:15 05/25/24 20:51 650 MG Metoprolol Tartrate 50 mg BID PO 05/24/24 10:00 05/26/24 10:50 50 MG Nitroglycerin 0.4 mg Q5MINP PRN SL 05/24/24 05:00 Morphine Sulfate 2 mg Q30M PRN IV 05/24/24 05:00 Empaglifozin 10 mg QAM PO 05/25/24 07:00 05/25/24 06:34 10 MG Pantoprazole Sodium 40 mg DAILY PO 05/25/24 10:00 05/26/24 10:51 40 MG Hydralazine HCl 100 mg BID PO 05/25/24 10:00 05/26/24 10:50 100 MG Losartan Potassium 100 mg DAILY PO 05/25/24 10:00 05/26/24 10:51 100 MG Iron Sucrose 110 ml @ 110 mls/hr DAILY@1200 IV 05/25/24 12:00 05/29/24 12:59 05/25/24 14:49 110 MLS/HR Hydroxyzine HCl 10 mg Q6HP PRN PO 05/25/24 11:15 Bumetanide 12.5 mg/Miscellaneous 50 ml @ 2 mls/hr Q24H IV 05/26/24 11:30 UNV Dopamine HCl/ Dextrose 250 ml @ 6.608 mls/ hr Q24H IV 05/26/24 11:30 UNV Examination: GENERAL:Normal, HEENT:Normal, NECK:Normal, LUNGS:Normal, LUNGS:Abnormal (on oxygen), CVS:Normal, ABDOMEN:Normal, MSK:Normal, MSK:Abnormal (edema++), SKIN:Normal, NEURO:Normal, :Normal laboratory and microbiology Laboratory Tests 05/26/24 05:42 Test 05/26/24 05:42 Range/Units Serum Glucose 98 74-106 mg/dL Problem List/Assessment/Plan Problem List/Assessment/Plan #1 severe anemia: transfuse, colonoscopy when stable #2 acute on chronic diastolic/systolic heart failure: lasix iv #3 dm: ssi #4 htn #5 ckd stage 3b #6 skin rash #7 cad #8 hyponatremia #9 acute resp failure advance care planning-full code- time spent 19 mins Plan discussed with: Patient My Orders My Orders Orders - KERA BOLTON MD Procedure Category Date Status Time Basic Metabolic Panel LAB 05/27/24 Verified 06:00 Complete Blood Count LAB 05/27/24 Verified 06:00 Date of Service: May 26, 2024 Billing Provider: KERA BOLTON MD Common Visit Codes: [id number] INP/OBS CARE(HIGH) KERA BOLTON MD May 26, 2024 11:33
--- NOTE | 2024-05-26 11:34 | DVHPN2 ---
Progress Note Date Seen: May 26, 2024 Medical Necessity Reason Pt with a Central, PICC or Fol: No Subjective Review of Systems: RESPIRATORY:Abnormal Other Systems: Patient seen and examined by myself today in follow-up O2 nasal cannula Objective vital signs Vital Sign Date Time Temp Pulse Resp B/P (MAP) Pulse Ox O2 Delivery O2 Flow Rate FiO2 05/26/24 10:51 144/73 05/26/24 10:50 62 05/26/24 08:36 98.0 16 95 98.0 05/25/24 20:00 Room Air* 0 21 Total Intake and Output 05/25/24 05/25/24 05/26/24 15:00 23:00 07:00 Intake Total 930 ml 300 ml Output Total 251 ml 500 ml Balance 679 ml -200 ml medications Current Medications Medications Dose Ordered Sig/Yesenia Route Start Time Stop Time Status Last Admin Dose Admin Hydralazine HCl 10 mg Q6HP PRN IV 05/24/24 01:15 05/24/24 19:02 10 MG Atorvastatin Calcium 20 mg HS PO 05/24/24 22:00 05/25/24 21:20 20 MG Diagnostic Test (Pha) 1 strip ACHS 05/24/24 07:00 05/26/24 11:00 1 STRIP Insulin Human Regular ACHS SC 05/24/24 07:00 05/25/24 21:27 3 UNITS Dextrose 50 ml UD PRN IV 05/24/24 01:15 Acetaminophen/ Hydrocodone Bitart 1 tab Q4HP PRN PO 05/24/24 01:15 05/25/24 03:41 1 TAB Ondansetron HCl 4 mg Q4HP PRN IV 05/24/24 01:15 05/24/24 20:44 4 MG Docusate Sodium 100 mg BIDPRN PRN PO 05/24/24 01:15 Acetaminophen 650 mg Q6HP PRN PO 05/24/24 01:15 05/25/24 20:51 650 MG Metoprolol Tartrate 50 mg BID PO 05/24/24 10:00 05/26/24 10:50 50 MG Nitroglycerin 0.4 mg Q5MINP PRN SL 05/24/24 05:00 Morphine Sulfate 2 mg Q30M PRN IV 05/24/24 05:00 Empaglifozin 10 mg QAM PO 05/25/24 07:00 05/25/24 06:34 10 MG Pantoprazole Sodium 40 mg DAILY PO 05/25/24 10:00 05/26/24 10:51 40 MG Hydralazine HCl 100 mg BID PO 05/25/24 10:00 05/26/24 10:50 100 MG Losartan Potassium 100 mg DAILY PO 05/25/24 10:00 05/26/24 10:51 100 MG Furosemide 40 mg DAILY IV 05/26/24 10:00 05/26/24 10:51 40 MG Iron Sucrose 110 ml @ 110 mls/hr DAILY@1200 IV 05/25/24 12:00 05/29/24 12:59 05/25/24 14:49 110 MLS/HR Hydroxyzine HCl 10 mg Q6HP PRN PO 05/25/24 11:15 Examination: LUNGS:Normal, CVS:Normal, MSK:Normal laboratory and microbiology Laboratory Tests 05/26/24 05:42 Test 05/26/24 05:42 Range/Units Serum Glucose 98 74-106 mg/dL Problem List/Assessment/Plan Problem List/Assessment/Plan Acute kidney injury superimposed Chronic Kidney Disease secondary hemodynamic mediated, FeNa <1% Congestive heart failure exacerbation Hyponatremia due to excess H2O Significant anemia status post packed red blood cell transfusion Iron deficiency anemia Hypertension Hyperglycemia rule out diabetes mellitus Recommendations Kidney function slightly worsened today Staples catheter Strict I&Os kidney ultrasound reported bilateral echogenic kidney Start Bumex 0.5 mg per hour IV drip Low-dose dopamine GI consult Insulin sliding scale Fluid restrictionsy We will continue to follow Plan discussed with: Patient My Orders My Orders Orders - VIJAY CHEEMA MD Procedure Category Date Status Time Insert Staples Catheter ASIF 05/25/24 In Process 11:58 Kidney US 05/25/24 Resulted 11:58 Maintain Fluid ASIF 05/25/24 In Process Restrictions 11:58 Give Un-Diluted PHA 05/26/24 Logged (Gi... W/Bumetanide 11:30 Dopamine 1600mcg/Ml PHA 05/26/24 Logged D5W 11:30 Potassium Effervesent PHA 05/26/24 Logged Tab (Klor-Con/Ef) 11:30 VIJAY CHEEMA MD May 26, 2024 11:34
--- NOTE | 2024-05-26 11:47 | CONS ---
Pharmacy Clinical Information: From Heart Failure Fallout Report on CQM Application Maria Elena Cantu is a 68 year old female with PMH of HFpEF (55% -->35%), CKD stage IIIb, chronic anemia, HTN, T2DM, CAD, and dyslipidemia. Her home medications for heart failure include empagliflozin, losartan, hydralazine, furosemide, and metoprolol succinate. Her inpatient medications include bumetanide, metoprolol tartrate, losartan, empagliflozin, and hydralazine. MRA not recommended due to eGFR < 30. Consider switching to metoprolol succinate since the 2021 HF guidelines recommended sustained-release metoprolol to reduce mortality and hospitalizations. CATRINA WALKER PHARMACIST May 26, 2024 11:47
--- NOTE | 2024-05-26 12:39 | DVH ---
EXAM: XY CHEST XRAY 1 VIEW Indication: SOB/cough Technique: Single frontal view of the chest was obtained Comparison: XY CHEST PORTABLE on DOS: 05/23/24, XY CHEST PORTABLE on DOS: 04/09/24, XY CHEST PORTABLE on DOS: 10/01/23, XY CHEST PORTABLE on DOS: 07/20/23, XY CHEST PORTABLE on DOS: 01/08/23 FINDINGS: Lines and Tubes: None Lungs: No focal consolidation. Mild pulmonary vascular congestion. Pleura: No effusion. No pneumothorax. Cardiomediastinal contours: Cardiomegaly. Bones: No acute osseous abnormality. IMPRESSION: Cardiomegaly. Mild pulmonary vascular congestion.
[2024-05-26] MEDS: POTASSIUM EFFERVESENT TAB 25 MEQ PO ONE (15:54)
[2024-05-26] MEDS: BUMETANIDE INJECTION 12.5 MG in GIVE UN-DILUTED 0 ML IV SCH (16:32)
[2024-05-26] MEDS: DOPamine 1600MCG/ML D5W 250 ML IV SCH (17:18)
--- NOTE | 2024-05-26 17:52 | DVHPN2 ---
Progress Note Date Seen: May 26, 2024 Resident Creating Document: TIM MACIAS Medical Necessity Reason Pt with a Central, PICC or Fol: Yes The following are medically ne: Mendosa Catheter Reason for mendosa catheter: Strict I&O Medical Necessity Reason Still abdominal pain Subjective Review of Systems This is a 68-year-old female with past medical history of anemia, coronary artery disease, CHF, type 2 diabetes mellitus, hyperlipidemia, hypertension who presented to the ED with chief complaint of acute chest pain. The patient stated that symptoms got progressively worse associated with cough and shortness of breaths. The patient also reports a history of epistaxis that has been going on for years and also reported recent episode of dark red stools associated with constipation. Initial labs on admission showed an hemoglobin of 5.4 which required transfusion of 2 units of red blood cells. Initial BNP was 3028 the patient was having bilateral lower extremity edema. The patient was started on furosemide 40 mg IV daily, empagliflozin 10 mg q.d., metoprolol tartrate 50 mg b.i.d., losartan 100 mg q.d. The patient was also started on IV iron. Initial chest x-ray was revealing pulmonary vascular congestion most likely due to CHF exacerbation. The patient was admitted for further assessment and management. 05/26/2024: Patient seen and examined at bedside. She was unable to get a colonoscopy today because she could note complete the bowel preparation. Patient seemed to be in mild distress today. mild shortness of breath and abdominal pain. Hgb:7.6, Hct: 23.7 after 2 units of RBCs transfusion ( yesterday), platelet: 363. The patient stated that she has a past medical history of chronic epistaxis. She also reported recent dark stools after constipation. Recent echocardiogram ( 04/10/2024) showed an LVEF of 35% with mild to moderate mitral regurgitation. Continue CHF medical therapy per hospitalist team, send stool occult blood test and stopped regular diet and changed to clear liquid diet. EGD performed on 10/04/2023 showed gastritis with few gastric erosions, grade a erosive esophagitis and 2nd and 3rd part of duodenum had no active bleeding at that time. Clearly patient is medically unstable for a colonoscopy. Will monitor her closely and decided once she is stable. Objective vital signs Vital Sign Date Time Temp Pulse Resp B/P (MAP) Pulse Ox O2 Delivery O2 Flow Rate FiO2 05/26/24 17:18 121/70 05/26/24 17:00 97.7 62 18 97 97.7 05/26/24 08:15 Nasal Cannula* 2 28 Total Intake and Output 05/25/24 05/25/24 05/26/24 15:00 23:00 07:00 Intake Total 930 ml 300 ml Output Total 251 ml 500 ml Balance 679 ml -200 ml medications Current Medications Medications Dose Ordered Sig/Yesenia Route Start Time Stop Time Status Last Admin Dose Admin Hydralazine HCl 10 mg Q6HP PRN IV 05/24/24 01:15 05/24/24 19:02 10 MG Atorvastatin Calcium 20 mg HS PO 05/24/24 22:00 05/25/24 21:20 20 MG Diagnostic Test (Pha) 1 strip ACHS 05/24/24 07:00 05/26/24 11:00 1 STRIP Insulin Human Regular ACHS SC 05/24/24 07:00 05/25/24 21:27 3 UNITS Dextrose 50 ml UD PRN IV 05/24/24 01:15 Acetaminophen/ Hydrocodone Bitart 1 tab Q4HP PRN PO 05/24/24 01:15 05/25/24 03:41 1 TAB Ondansetron HCl 4 mg Q4HP PRN IV 05/24/24 01:15 05/24/24 20:44 4 MG Docusate Sodium 100 mg BIDPRN PRN PO 05/24/24 01:15 Acetaminophen 650 mg Q6HP PRN PO 05/24/24 01:15 05/25/24 20:51 650 MG Metoprolol Tartrate 50 mg BID PO 05/24/24 10:00 05/26/24 10:50 50 MG Nitroglycerin 0.4 mg Q5MINP PRN SL 05/24/24 05:00 Morphine Sulfate 2 mg Q30M PRN IV 05/24/24 05:00 Empaglifozin 10 mg QAM PO 05/25/24 07:00 05/25/24 06:34 10 MG Pantoprazole Sodium 40 mg DAILY PO 05/25/24 10:00 05/26/24 10:51 40 MG Losartan Potassium 100 mg DAILY PO 05/25/24 10:00 05/26/24 10:51 100 MG Iron Sucrose 110 ml @ 110 mls/hr DAILY@1200 IV 05/25/24 12:00 1/3/25 12:59 05/26/24 15:54 110 MLS/HR Hydroxyzine HCl 10 mg Q6HP PRN PO 05/25/24 11:15 Bumetanide 12.5 mg/Miscellaneous 50 ml @ 2 mls/hr Q24H IV 05/26/24 11:30 05/26/24 16:32 2 MLS/HR Dopamine HCl/ Dextrose 250 ml @ 6.608 mls/ hr Q24H IV 05/26/24 11:30 05/26/24 17:18 6.608 MLS/HR Hydralazine HCl 50 mg BID PO 05/26/24 22:00 Examination General: Patient alert and oriented in person, place and time. Patient following commands. Mild distress in morning HEENT: Normocephalic, atraumatic, moist mucous membranes Respiratory/pulmonary: There are mild bilateral crackles on lung bases with no evidence of wheezing at this time. Cardiovascular: Normal heart sounds S1 and S2 with no associated murmurs Abdomen: Abdomen nondistended, there is no pain to palpation in any of the abdominal quadrants, no palpable masses. Extremities: There is very mild peripheral edema that has been improving compared to admission. Peripheral Pulses: 3+ Radial (R). 3+ Radial (L). 3+ Dorsalis pedis (R). 3+ Dorsalis pedis(L) Skin: No rashes. Patient has scratches and linear ulcers on bilateral lower extremities associated with itching Neurological: Intact cranial nerves with no focal neurologic deficits laboratory and microbiology Laboratory Tests 05/26/24 05:42 Test 05/26/24 05:42 Range/Units Serum Glucose 98 74-106 mg/dL Problem List/Assessment/Plan Problem List/Assessment/Plan Acute on chronic severe microcytic/hypochromic anemia -initial hemoglobin was 5.4 which required 2 units of RBCs transfusion -patient was initiated on IV iron -ordered iron panel and ferritin -monitor hemoglobin and hematocrit -patient has chronic history of epistaxis -patient reported dark red blood in the stools likely related to constipation -->resume diet --> Not medically stable for colonoscopy at this time --> Will continue to follow closely, once stable, will attempt the colonoscopy again - Possible upper vs lower GI bleed -an EGD was performed on 10/04/2023 showing gastritis with few gastric erosions, grade a erosive esophagitis and 2nd and 3rd part of duodenum had no active bleeding at that time. -patient reported dark red blood in the stools that was grossly visible Acute on chronic systolic heart failure exacerbation (HFrEF 30%) -last echocardiogram was performed on 04/10/2024 showing an LVEF of 35% with mild to moderate mitral regurgitation. -BNP was 3028 - IV furosemide 40 mg daily STOPPED; metoprolol tartrate 50 mg b.i.d., empagliflozin 10 mg q.a.m. and rest of directed medical therapy per hospitalist. --> Repeat chest x-ray: Cardiomegaly. Mild pulmonary vascular congestion --> IV bumex started 05/26/2024 Acute hypoxic respiratory failure likely due to CHF exacerbation -continue management as described above per hospitalist --> Start 2L of oxygen if SpO2 is less than 94 Acute on Chronic kidney disease stage V, likely prerenal vasomotor mediated due to CHF -last creatinine was 1.91, BUN 24 -GFR 28 -nephrology on board Moderate hyponatremia -last sodium levels was 123 -monitor sodium levels and electrolytes per hospitalist Hyperlipidemia -atorvastatin 20 mg q.d. Type 2 diabetes mellitus -sliding scale insulin, managed per hospitalist Primary hypertension -on losartan 100 mg daily, hydralazine 100 mg b.i.d., metoprolol tartrate 50 mg b.i.d., IV furosemide -monitor blood pressure Code status: Full Goals of care discussed for more than 30 minutes Case and plan discussed with Dr. Domínguez Thank you for allowing us to participate in the care of this patient. Please call if you have any questions or concerns. Plan discussed with: Patient, Other (Nurse) TIM MACIAS RESIDENT May 26, 2024 17:52
[2024-05-26] MEDS: hydrALAZINE HCL 25 MG TAB PO SCH (21:34)
[2024-05-27] VITALS (13 sets, daily range): BP systolic 118–164; BP diastolic 46–73; PULSE 59–98; RESP 17–22; TEMP 97.1–99.2; O2SAT 92–100
[2024-05-27 07:35] LABS: Basophils # (auto) 0 10 ^3/uL (0-0.2); Eosinophils # (auto) 0.1 10 ^3/uL (0-0.8); Hemoglobin 7.5 g/dL (12.2-16.2); Neutrophils # (auto) 7.9 10 ^3/uL (1.6-8.6); Red Cell Distribution Width 23.9 % (11.8-14.3)
[2024-05-27 07:36] LABS: Potassium 4.5 mmol/L (3.5-5.1)
[2024-05-27 07:37] LABS: Anion Gap 7 (5-15); Basophils % (auto) 0.5 % (0.0-2.0); Calcium 9.1 mg/dL (8.7-10.4); Carbon Dioxide 23 mmol/L (20-31); Eosinophils % (auto) 0.8 % (0.0-7.0); Hematocrit 23.8 % (36.0-46.0); Lymphocytes # (auto) 0.7 10 ^3/uL (0.4-5.4); Lymphocytes % (auto) 7.8 % (10.0-50.0); Mean Corpuscular Hemoglobin 21.7 pg (28.0-32.0); Mean Corpuscular Hgb Conc. 31.3 g/dL (32.0-36.0); Mean Corpuscular Volume 69.3 fL (80.0-100.0); Monocytes # (auto) 0.7 10 ^3/uL (0-1.3); Monocytes % (auto) 7.6 % (0.0-12.0); Neutrophils % (auto) 83.3 % (37.0-80.0); Nucleated Red Blood Cells % 0.7 %; Platelet Count (auto) 381 10^3/uL (140-450); Red Blood Cells 3.44 10^6/uL (4.0-5.20); White Blood Cell 9.5 10^3/uL (4.4-10.8)
[2024-05-27 07:42] LABS: BUN/Creatinine Ratio 12.4 (10.0-20.0)
[2024-05-27 07:52] LABS: Blood Urea Nitrogen 27 mg/dL (9-23); Chloride 96 mmol/L (98-107); Glucose 128 mg/dL (74-106); Sodium 126 mmol/L (136-145)
--- NOTE | 2024-05-27 09:31 | DVHPN2 ---
Progress Note Date Seen: May 27, 2024 Medical Necessity Reason Pt with a Central, PICC or Fol: Yes The following are medically ne: Mendosa Catheter Reason for mendosa catheter: Strict I&O Subjective Patient reports: Feels worse (severe wheeze) Review of Systems: CVS:Abnormal, RESPIRATORY:Abnormal Objective vital signs Vital Sign Date Time Temp Pulse Resp B/P (MAP) Pulse Ox O2 Delivery O2 Flow Rate FiO2 05/27/24 08:45 97.3 63 18 164/64 (97) 96 97.3 05/27/24 07:59 Nasal Cannula* 2 28 Total Intake and Output 05/26/24 05/26/24 05/27/24 15:00 23:00 07:00 Intake Total 150 ml 577 ml 314.688 ml Output Total 902 ml 1000 ml Balance 150 ml -325 ml -685.312 ml medications Current Medications Medications Dose Ordered Sig/Yesenia Route Start Time Stop Time Status Last Admin Dose Admin Hydralazine HCl 10 mg Q6HP PRN IV 05/24/24 01:15 05/24/24 19:02 10 MG Atorvastatin Calcium 20 mg HS PO 05/24/24 22:00 05/26/24 21:36 20 MG Diagnostic Test (Pha) 1 strip ACHS 05/24/24 07:00 05/27/24 06:29 1 STRIP Insulin Human Regular ACHS SC 05/24/24 07:00 05/26/24 21:42 4 UNITS Dextrose 50 ml UD PRN IV 05/24/24 01:15 Acetaminophen/ Hydrocodone Bitart 1 tab Q4HP PRN PO 05/24/24 01:15 05/25/24 03:41 1 TAB Ondansetron HCl 4 mg Q4HP PRN IV 05/24/24 01:15 05/24/24 20:44 4 MG Docusate Sodium 100 mg BIDPRN PRN PO 05/24/24 01:15 Acetaminophen 650 mg Q6HP PRN PO 05/24/24 01:15 05/25/24 20:51 650 MG Metoprolol Tartrate 50 mg BID PO 05/24/24 10:00 05/27/24 08:44 50 MG Nitroglycerin 0.4 mg Q5MINP PRN SL 05/24/24 05:00 Morphine Sulfate 2 mg Q30M PRN IV 05/24/24 05:00 Empaglifozin 10 mg QAM PO 05/25/24 07:00 05/27/24 06:29 10 MG Pantoprazole Sodium 40 mg DAILY PO 05/25/24 10:00 05/27/24 08:44 40 MG Losartan Potassium 100 mg DAILY PO 05/25/24 10:00 05/27/24 08:43 100 MG Iron Sucrose 110 ml @ 110 mls/hr DAILY@1200 IV 05/25/24 12:00 05/29/24 12:59 05/26/24 15:54 110 MLS/HR Hydroxyzine HCl 10 mg Q6HP PRN PO 05/25/24 11:15 Bumetanide 12.5 mg/Miscellaneous 50 ml @ 2 mls/hr Q24H IV 05/26/24 11:30 05/26/24 16:32 2 MLS/HR Dopamine HCl/ Dextrose 250 ml @ 6.608 mls/ hr Q24H IV 05/26/24 11:30 05/26/24 17:18 6.608 MLS/HR Hydralazine HCl 50 mg BID PO 05/26/24 22:00 05/27/24 08:44 50 MG Examination: GENERAL:Abnormal, LUNGS:Abnormal, CVS:Abnormal laboratory and microbiology Laboratory Tests 05/27/24 05:56 Test 05/27/24 05:56 Range/Units Serum Glucose 128 H 74-106 mg/dL Problem List/Assessment/Plan Problem List/Assessment/Plan Acute kidney injury ckd 3b Congestive heart failure exacerbation COPD excerbation Hyponatremia due to excess H2O Significant anemia status post packed red blood cell transfusion Iron deficiency anemia Hypertension Hyperglycemia rule out diabetes mellitus Mendosa catheter Strict I&Os kidney ultrasound reported bilateral echogenic kidney currently bumex drip still hypervoelmic needs albuterol treatment MANINDER Low-dose dopamine GI consult Insulin sliding scale Fluid restrictions Plan discussed with: Patient TIM SALES MD May 27, 2024 09:31
[2024-05-27] MEDS ORDERED: ALBUTEROL SULF 2.5 MG/0.5ML(0.5%) NEB SOLN NEB PRN (11:00)
[2024-05-27] MEDS: ALBUTEROL SULF 2.5 MG/0.5ML(0.5%) NEB SOLN ONE (11:02)
--- NOTE | 2024-05-27 11:43 | DVHPN2 ---
Progress Note Date Seen: May 27, 2024 Medical Necessity Reason Pt with a Central, PICC or Fol: Yes The following are medically ne: Mendosa Catheter Reason for mendosa catheter: Strict I&O Subjective Patient reports: No new complaints Review of Systems: HEENT:Normal, CVS:Normal, RESPIRATORY:Normal, GI:Normal, :Normal, MSK:Normal, NEURO:Normal Objective vital signs Vital Sign Date Time Temp Pulse Resp B/P (MAP) Pulse Ox O2 Delivery O2 Flow Rate FiO2 05/27/24 11:40 149/80 05/27/24 11:23 98 20 2.0 28 05/27/24 11:07 100 05/27/24 11:07 97.8 97.8 05/27/24 07:59 Nasal Cannula* Total Intake and Output 05/26/24 05/26/24 05/27/24 15:00 23:00 07:00 Intake Total 150 ml 577 ml 314.688 ml Output Total 902 ml 1000 ml Balance 150 ml -325 ml -685.312 ml medications Current Medications Medications Dose Ordered Sig/Yesenia Route Start Time Stop Time Status Last Admin Dose Admin Hydralazine HCl 10 mg Q6HP PRN IV 05/24/24 01:15 05/24/24 19:02 10 MG Atorvastatin Calcium 20 mg HS PO 05/24/24 22:00 05/26/24 21:36 20 MG Diagnostic Test (Pha) 1 strip ACHS 05/24/24 07:00 05/27/24 11:39 1 STRIP Insulin Human Regular ACHS SC 05/24/24 07:00 05/27/24 11:38 3 UNITS Dextrose 50 ml UD PRN IV 05/24/24 01:15 Acetaminophen/ Hydrocodone Bitart 1 tab Q4HP PRN PO 05/24/24 01:15 05/25/24 03:41 1 TAB Ondansetron HCl 4 mg Q4HP PRN IV 05/24/24 01:15 05/24/24 20:44 4 MG Docusate Sodium 100 mg BIDPRN PRN PO 05/24/24 01:15 Acetaminophen 650 mg Q6HP PRN PO 05/24/24 01:15 05/25/24 20:51 650 MG Metoprolol Tartrate 50 mg BID PO 05/24/24 10:00 05/27/24 08:44 50 MG Nitroglycerin 0.4 mg Q5MINP PRN SL 05/24/24 05:00 Morphine Sulfate 2 mg Q30M PRN IV 05/24/24 05:00 Empaglifozin 10 mg QAM PO 05/25/24 07:00 05/27/24 06:29 10 MG Pantoprazole Sodium 40 mg DAILY PO 05/25/24 10:00 05/27/24 08:44 40 MG Losartan Potassium 100 mg DAILY PO 05/25/24 10:00 05/27/24 08:43 100 MG Iron Sucrose 110 ml @ 110 mls/hr DAILY@1200 IV 05/25/24 12:00 05/29/24 12:59 05/26/24 15:54 110 MLS/HR Hydroxyzine HCl 10 mg Q6HP PRN PO 05/25/24 11:15 Bumetanide 12.5 mg/Miscellaneous 50 ml @ 2 mls/hr Q24H IV 05/26/24 11:30 05/27/24 11:40 2 MLS/HR Dopamine HCl/ Dextrose 250 ml @ 6.608 mls/ hr Q24H IV 05/26/24 11:30 05/27/24 11:39 6.608 MLS/HR Hydralazine HCl 50 mg BID PO 05/26/24 22:00 05/27/24 08:44 50 MG Albuterol 2.5 mg Q4HPRN PRN NEB 05/27/24 11:00 UNV Examination: GENERAL:Normal, HEENT:Normal, NECK:Normal, LUNGS:Normal, CVS:Normal, ABDOMEN:Normal, MSK:Normal, MSK:Abnormal (edema++), SKIN:Normal, NEURO:Normal, :Normal laboratory and microbiology Laboratory Tests 05/27/24 05:56 Test 05/27/24 05:56 Range/Units Serum Glucose 128 H 74-106 mg/dL Problem List/Assessment/Plan Problem List/Assessment/Plan #1 severe anemia: transfuse, colonoscopy when stable #2 acute on chronic diastolic/systolic heart failure: bumex drip, metolazone, dopamine drip #3 dm: ssi #4 htn #5 ckd stage 3b #6 skin rash #7 cad #8 hyponatremia #9 acute resp failure advance care planning-full code- time spent 19 mins Plan discussed with: Patient My Orders My Orders Orders - KERA BOLTON MD Procedure Category Date Status Time Chest Xray 1 View XY 05/26/24 Resulted 11:39 Date of Service: May 27, 2024 Billing Provider: KERA BOLTON MD Common Visit Codes: [id number] INP/OBS CARE(HIGH) KERA BOLTON MD May 27, 2024 11:43
[2024-05-27] MEDS: metOLazone 5 MG TAB PO ONE (11:58)
--- NOTE | 2024-05-27 20:31 | DVHPN2 ---
Progress Note - Dictate Date Seen: May 27, 2024 Medical Necessity Reason Pt with a Central, PICC or Fol: Yes The following are medically ne: Mendosa Catheter Reason for mendosa catheter: Strict I&O Subjective Patient is still was complaining of weakness and shortness of breath Patient has an ejection fraction of 35%. She is being treated for CHF fluid overload with IV Bumex Nephrology is on the case No active GI bleeding reported Hemoglobin stable at 7.5 Stool for occult blood negative vital signs Vital Sign Date Time Temp Pulse Resp B/P (MAP) Pulse Ox O2 Delivery O2 Flow Rate FiO2 05/27/24 19:35 96 Room Air* 0 21 05/27/24 18:28 136/51 05/27/24 16:49 97.4 67 18 97.4 Total Intake and Output 05/26/24 05/26/24 05/27/24 14:59 22:59 06:59 Intake Total 150 ml 577 ml 314.688 ml Output Total 902 ml 1000 ml Balance 150 ml -325 ml -685.312 ml medications Current Medications Medications Dose Ordered Sig/Yesenia Route Start Time Stop Time Status Last Admin Dose Admin Hydralazine HCl 10 mg Q6HP PRN IV 05/24/24 01:15 05/24/24 19:02 10 MG Atorvastatin Calcium 20 mg HS PO 05/24/24 22:00 05/26/24 21:36 20 MG Diagnostic Test (Pha) 1 strip ACHS 05/24/24 07:00 05/27/24 16:40 1 STRIP Insulin Human Regular ACHS SC 05/24/24 07:00 05/27/24 17:00 3 UNITS Dextrose 50 ml UD PRN IV 05/24/24 01:15 Acetaminophen/ Hydrocodone Bitart 1 tab Q4HP PRN PO 05/24/24 01:15 05/27/24 20:25 1 TAB Ondansetron HCl 4 mg Q4HP PRN IV 05/24/24 01:15 05/24/24 20:44 4 MG Docusate Sodium 100 mg BIDPRN PRN PO 05/24/24 01:15 Acetaminophen 650 mg Q6HP PRN PO 05/24/24 01:15 05/25/24 20:51 650 MG Metoprolol Tartrate 50 mg BID PO 05/24/24 10:00 05/27/24 08:44 50 MG Nitroglycerin 0.4 mg Q5MINP PRN SL 05/24/24 05:00 Morphine Sulfate 2 mg Q30M PRN IV 05/24/24 05:00 Empaglifozin 10 mg QAM PO 05/25/24 07:00 05/27/24 06:29 10 MG Pantoprazole Sodium 40 mg DAILY PO 05/25/24 10:00 05/27/24 08:44 40 MG Losartan Potassium 100 mg DAILY PO 05/25/24 10:00 05/27/24 08:43 100 MG Iron Sucrose 110 ml @ 110 mls/hr DAILY@1200 IV 05/25/24 12:00 05/29/24 12:59 05/27/24 11:49 110 MLS/HR Hydroxyzine HCl 10 mg Q6HP PRN PO 05/25/24 11:15 Bumetanide 12.5 mg/Miscellaneous 50 ml @ 2 mls/hr Q24H IV 05/26/24 11:30 05/27/24 11:40 2 MLS/HR Dopamine HCl/ Dextrose 250 ml @ 6.608 mls/ hr Q24H IV 05/26/24 11:30 05/27/24 11:39 6.608 MLS/HR Hydralazine HCl 50 mg BID PO 05/26/24 22:00 05/27/24 08:44 50 MG Albuterol 2.5 mg Q4HPRN PRN NEB 05/27/24 11:00 Metolazone 5 mg DAILY PO 05/28/24 10:00 objective Mild distress; GENERAL:Abnormal, LUNGS:Abnormal, CVS:Abnormal laboratory and microbiology Laboratory Tests 05/27/24 05:56 Test 05/27/24 05:56 Range/Units Serum Glucose 128 H 74-106 mg/dL Problems(with codes): (1) Hyperglycemia due to type 2 diabetes mellitus (2) Chronic kidney disease (3) Anemia (4) Hyponatremia (5) Melena (6) Near syncope (7) Generalized weakness Prognosis PLAN Patient is still not stable to proceed with a colonoscopy At this time I will continue conservative management Protonix 40 mg p.o. twice a day Continue diuresis as needed Advance diet as tolerated IV iron therapy Outpatient elective colonoscopy once more more stabilized Plan discussed with: Patient, Other NEW MATTA MD May 27, 2024 20:31
[2024-05-28] VITALS (11 sets, daily range): BP systolic 115–152; BP diastolic 50–67; PULSE 56–70; RESP 16–20; TEMP 97.2–98.8; O2SAT 90–100
[2024-05-28 05:59] LABS: Potassium 3.9 mmol/L (3.5-5.1)
[2024-05-28 06:00] LABS: Anion Gap 8 (5-15); Carbon Dioxide 24 mmol/L (20-31)
[2024-05-28 06:01] LABS: Calcium 9.6 mg/dL (8.7-10.4)
[2024-05-28 06:26] LABS: Blood Urea Nitrogen 30 mg/dL (9-23); Chloride 90 mmol/L (98-107); Glucose 125 mg/dL (74-106); Sodium 122 mmol/L (136-145)
[2024-05-28] MEDS: metOLazone 5 MG TAB PO SCH (10:02)
--- NOTE | 2024-05-28 10:12 | DVHPN2 ---
Progress Note Date Seen: May 28, 2024 Medical Necessity Reason Pt with a Central, PICC or Fol: Yes The following are medically ne: Mendosa Catheter Reason for mendosa catheter: Strict I&O Subjective Patient reports: Feels better Objective vital signs Vital Sign Date Time Temp Pulse Resp B/P (MAP) Pulse Ox O2 Delivery O2 Flow Rate FiO2 05/28/24 10:02 147/67 05/28/24 10:02 62 05/28/24 09:00 97.2 18 94 97.2 05/28/24 07:42 Nasal Cannula* 2 28 Total Intake and Output 05/27/24 05/27/24 05/28/24 15:00 23:00 07:00 Intake Total 510 ml 608.2 ml 400 ml Output Total 2000 ml 3150 ml Balance 510 ml -1391.8 ml -2750 ml medications Current Medications Medications Dose Ordered Sig/Yesenia Route Start Time Stop Time Status Last Admin Dose Admin Hydralazine HCl 10 mg Q6HP PRN IV 05/24/24 01:15 05/24/24 19:02 10 MG Atorvastatin Calcium 20 mg HS PO 05/24/24 22:00 05/27/24 22:43 20 MG Diagnostic Test (Pha) 1 strip ACHS 05/24/24 07:00 05/28/24 07:02 1 STRIP Insulin Human Regular ACHS SC 05/24/24 07:00 05/28/24 07:11 2 UNITS Dextrose 50 ml UD PRN IV 05/24/24 01:15 Acetaminophen/ Hydrocodone Bitart 1 tab Q4HP PRN PO 05/24/24 01:15 05/28/24 07:01 1 TAB Ondansetron HCl 4 mg Q4HP PRN IV 05/24/24 01:15 05/24/24 20:44 4 MG Docusate Sodium 100 mg BIDPRN PRN PO 05/24/24 01:15 Acetaminophen 650 mg Q6HP PRN PO 05/24/24 01:15 05/25/24 20:51 650 MG Metoprolol Tartrate 50 mg BID PO 05/24/24 10:00 05/28/24 10:02 50 MG Nitroglycerin 0.4 mg Q5MINP PRN SL 05/24/24 05:00 Morphine Sulfate 2 mg Q30M PRN IV 05/24/24 05:00 Empaglifozin 10 mg QAM PO 05/25/24 07:00 05/28/24 07:00 10 MG Pantoprazole Sodium 40 mg DAILY PO 05/25/24 10:00 05/28/24 10:01 40 MG Losartan Potassium 100 mg DAILY PO 05/25/24 10:00 05/28/24 10:02 100 MG Iron Sucrose 110 ml @ 110 mls/hr DAILY@1200 IV 05/25/24 12:00 05/29/24 12:59 05/27/24 11:49 110 MLS/HR Hydroxyzine HCl 10 mg Q6HP PRN PO 05/25/24 11:15 Bumetanide 12.5 mg/Miscellaneous 50 ml @ 2 mls/hr Q24H IV 05/26/24 11:30 05/27/24 11:40 2 MLS/HR Dopamine HCl/ Dextrose 250 ml @ 6.608 mls/ hr Q24H IV 05/26/24 11:30 05/28/24 07:02 6.608 MLS/HR Hydralazine HCl 50 mg BID PO 05/26/24 22:00 05/28/24 10:01 50 MG Albuterol 2.5 mg Q4HPRN PRN NEB 05/27/24 11:00 Cancel Metolazone 5 mg DAILY PO 05/28/24 10:00 05/28/24 10:02 5 MG Examination: GENERAL:Abnormal, CVS:Abnormal, ABDOMEN:Abnormal, SKIN:Abnormal laboratory and microbiology Laboratory Tests 05/28/24 05:37 05/27/24 05:56 Test 05/28/24 05:37 Range/Units Serum Glucose 125 H 74-106 mg/dL Problem List/Assessment/Plan Problem List/Assessment/Plan Acute kidney injury ckd 3b Congestive heart failure exacerbation COPD exacerbation Hyponatremia due to excess H2O Significant anemia status post packed red blood cell transfusion Iron deficiency anemia Hypertension Hyperglycemia rule out diabetes mellitus Mendosa catheter Strict I&Os kidney ultrasound reported bilateral echogenic kidney currently bumex drip s/p metolazone. rec cancel metolazone tomorrow monitor Na level noted lower today albuterol treatment PRN Low-dose dopamine GI consult Insulin sliding scale Fluid restrictions Plan discussed with: Patient TIM SALES MD May 28, 2024 10:12
--- NOTE | 2024-05-28 12:38 | DVHPN2 ---
Progress Note Date Seen: May 28, 2024 Medical Necessity Reason Pt with a Central, PICC or Fol: Yes The following are medically ne: Mendosa Catheter Reason for mendosa catheter: Strict I&O Subjective Patient reports: No new complaints Review of Systems: HEENT:Normal, CVS:Normal, RESPIRATORY:Normal, GI:Normal, :Normal, MSK:Normal, NEURO:Normal Objective vital signs Vital Sign Date Time Temp Pulse Resp B/P (MAP) Pulse Ox O2 Delivery O2 Flow Rate FiO2 05/28/24 11:28 138/72 05/28/24 10:02 62 05/28/24 10:00 94 Nasal Cannula 2.0 05/28/24 10:00 28 05/28/24 09:00 97.2 18 97.2 Total Intake and Output 05/27/24 05/27/24 05/28/24 15:00 23:00 07:00 Intake Total 510 ml 608.2 ml 400 ml Output Total 2000 ml 3150 ml Balance 510 ml -1391.8 ml -2750 ml medications Current Medications Medications Dose Ordered Sig/Yesenia Route Start Time Stop Time Status Last Admin Dose Admin Hydralazine HCl 10 mg Q6HP PRN IV 05/24/24 01:15 05/24/24 19:02 10 MG Atorvastatin Calcium 20 mg HS PO 05/24/24 22:00 05/27/24 22:43 20 MG Diagnostic Test (Pha) 1 strip ACHS 05/24/24 07:00 05/28/24 11:36 1 STRIP Insulin Human Regular ACHS SC 05/24/24 07:00 05/28/24 11:37 2 UNITS Dextrose 50 ml UD PRN IV 05/24/24 01:15 Acetaminophen/ Hydrocodone Bitart 1 tab Q4HP PRN PO 05/24/24 01:15 05/28/24 07:01 1 TAB Ondansetron HCl 4 mg Q4HP PRN IV 05/24/24 01:15 05/24/24 20:44 4 MG Docusate Sodium 100 mg BIDPRN PRN PO 05/24/24 01:15 Acetaminophen 650 mg Q6HP PRN PO 05/24/24 01:15 05/25/24 20:51 650 MG Metoprolol Tartrate 50 mg BID PO 05/24/24 10:00 05/28/24 10:02 50 MG Nitroglycerin 0.4 mg Q5MINP PRN SL 05/24/24 05:00 Morphine Sulfate 2 mg Q30M PRN IV 05/24/24 05:00 Empaglifozin 10 mg QAM PO 05/25/24 07:00 05/28/24 07:00 10 MG Pantoprazole Sodium 40 mg DAILY PO 05/25/24 10:00 05/28/24 10:01 40 MG Losartan Potassium 100 mg DAILY PO 05/25/24 10:00 05/28/24 10:02 100 MG Iron Sucrose 110 ml @ 110 mls/hr DAILY@1200 IV 05/25/24 12:00 05/29/24 12:59 05/28/24 11:36 110 MLS/HR Hydroxyzine HCl 10 mg Q6HP PRN PO 05/25/24 11:15 Bumetanide 12.5 mg/Miscellaneous 50 ml @ 2 mls/hr Q24H IV 05/26/24 11:30 05/28/24 11:28 2 MLS/HR Dopamine HCl/ Dextrose 250 ml @ 6.608 mls/ hr Q24H IV 05/26/24 11:30 05/28/24 07:02 6.608 MLS/HR Hydralazine HCl 50 mg BID PO 05/26/24 22:00 05/28/24 10:01 50 MG Albuterol 2.5 mg Q4HPRN PRN NEB 05/27/24 11:00 Cancel Metolazone 5 mg DAILY PO 05/28/24 10:00 05/28/24 10:02 5 MG Examination: GENERAL:Normal, HEENT:Normal, NECK:Normal, LUNGS:Normal, CVS:Normal, ABDOMEN:Normal, MSK:Normal, SKIN:Normal, NEURO:Normal, :Normal laboratory and microbiology Laboratory Tests 05/28/24 05:37 05/27/24 05:56 Test 05/28/24 05:37 Range/Units Serum Glucose 125 H 74-106 mg/dL Problem List/Assessment/Plan Problem List/Assessment/Plan #1 severe anemia: transfuse, colonoscopy when stable #2 acute on chronic diastolic/systolic heart failure: bumex drip, metolazone, dopamine drip #3 dm: ssi #4 htn #5 ckd stage 3b #6 skin rash #7 cad #8 hyponatremia #9 acute resp failure advance care planning-full code- time spent 19 mins Plan discussed with: Patient Date of Service: May 28, 2024 Billing Provider: KERA BOLTON MD Common Visit Codes: [id number] INP/OBS CARE(HIGH) KERA BOLTON MD May 28, 2024 12:38
--- NOTE | 2024-05-28 17:02 | ECG ---
[facility] Test Date: 2024-05-23 Test Time: 19:11:29 Pat Name: ALISTAIR CARDOZA Department: ER Room: 0236T A Gender: F Rn Ed: DR SCHMITT: 1955 Requested By: JOAO HEBERT Order Number: [id number] Reading MD: River Hutchinson Measurements Intervals [place] Rate: 105 P: 58 CT: 161 QRS: 81 QRSD: 173 T: 265 QT: 364 QTc: 482 Interpretive Statements Sinus tachycardia IVCD, consider atypical LBBB Electronically Signed On 05-29-2024 12:06:15 PST by River Hutchinson Please click the below link to view image of tracing.
--- NOTE | 2024-05-28 18:16 | DVHPN2 ---
Progress Note Date Seen: May 28, 2024 Resident Creating Document: TIM MACIAS Medical Necessity Reason Pt with a Central, PICC or Fol: Yes The following are medically ne: Mendosa Catheter Reason for mendosa catheter: Strict I&O Medical Necessity Reason Still abdominal pain, malaise mild shortness of breath Subjective Review of Systems Patient seen and examined today. She denies any new complaints She continues to complained of weakness and not ready for colonoscopy. Shortness of breath is improving. Patient has an ejection fraction of 35%. She is being treated for CHF fluid overload with IV Bumex Nephrology is on the case No active GI bleeding reported Hemoglobin stable at 7.5 Stool for occult blood negative Objective vital signs Vital Sign Date Time Temp Pulse Resp B/P (MAP) Pulse Ox O2 Delivery O2 Flow Rate FiO2 05/28/24 17:00 98.8 60 18 143/63 (89) 98 98.8 05/28/24 10:00 Nasal Cannula 2.0 05/28/24 10:00 28 Total Intake and Output 05/27/24 05/27/24 05/28/24 15:00 23:00 07:00 Intake Total 510 ml 608.2 ml 400 ml Output Total 2000 ml 3150 ml Balance 510 ml -1391.8 ml -2750 ml medications Current Medications Medications Dose Ordered Sig/Yesenia Route Start Time Stop Time Status Last Admin Dose Admin Hydralazine HCl 10 mg Q6HP PRN IV 05/24/24 01:15 05/24/24 19:02 10 MG Atorvastatin Calcium 20 mg HS PO 05/24/24 22:00 05/27/24 22:43 20 MG Diagnostic Test (Pha) 1 strip ACHS 05/24/24 07:00 05/28/24 16:37 1 STRIP Insulin Human Regular ACHS SC 05/24/24 07:00 05/28/24 11:37 2 UNITS Dextrose 50 ml UD PRN IV 05/24/24 01:15 Acetaminophen/ Hydrocodone Bitart 1 tab Q4HP PRN PO 05/24/24 01:15 05/28/24 07:01 1 TAB Ondansetron HCl 4 mg Q4HP PRN IV 05/24/24 01:15 05/24/24 20:44 4 MG Docusate Sodium 100 mg BIDPRN PRN PO 05/24/24 01:15 Acetaminophen 650 mg Q6HP PRN PO 05/24/24 01:15 05/25/24 20:51 650 MG Metoprolol Tartrate 50 mg BID PO 05/24/24 10:00 05/28/24 10:02 50 MG Nitroglycerin 0.4 mg Q5MINP PRN SL 05/24/24 05:00 Morphine Sulfate 2 mg Q30M PRN IV 05/24/24 05:00 Empaglifozin 10 mg QAM PO 05/25/24 07:00 05/28/24 07:00 10 MG Pantoprazole Sodium 40 mg DAILY PO 05/25/24 10:00 05/28/24 10:01 40 MG Losartan Potassium 100 mg DAILY PO 05/25/24 10:00 05/28/24 10:02 100 MG Iron Sucrose 110 ml @ 110 mls/hr DAILY@1200 IV 05/25/24 12:00 05/29/24 12:59 05/28/24 11:36 110 MLS/HR Hydroxyzine HCl 10 mg Q6HP PRN PO 05/25/24 11:15 Bumetanide 12.5 mg/Miscellaneous 50 ml @ 2 mls/hr Q24H IV 05/26/24 11:30 05/28/24 11:28 2 MLS/HR Dopamine HCl/ Dextrose 250 ml @ 6.608 mls/ hr Q24H IV 05/26/24 11:30 05/28/24 07:02 6.608 MLS/HR Hydralazine HCl 50 mg BID PO 05/26/24 22:00 05/28/24 10:01 50 MG Albuterol 2.5 mg Q4HPRN PRN NEB 05/27/24 11:00 Cancel Metolazone 5 mg DAILY PO 05/28/24 10:00 05/28/24 10:02 5 MG Examination General: AOX4. uncomfortable in bed, not interested in doing much HEENT: Normocephalic, atraumatic, moist mucous membranes Respiratory/pulmonary: There are mild bilateral crackles on lung bases with no evidence of wheezing at this time. Cardiovascular: Normal heart sounds S1 and S2 with no associated murmurs Abdomen: Abdomen nondistended, there is no pain to palpation in any of the abdominal quadrants, no palpable masses. Extremities: There is very mild peripheral edema that has been improving compared to admission. Peripheral Pulses: 3+ Radial (R). 3+ Radial (L). 3+ Dorsalis pedis (R). 3+ Dorsalis pedis(L) Skin: No rashes. Patient has scratches and linear ulcers on bilateral lower extremities associated with itching Neurological: Intact cranial nerves with no focal neurologic deficits laboratory and microbiology Laboratory Tests 05/28/24 05:37 05/27/24 05:56 Test 05/28/24 05:37 Range/Units Serum Glucose 125 H 74-106 mg/dL Problem List/Assessment/Plan Problem List/Assessment/Plan Acute on chronic severe microcytic/hypochromic anemia -initial hemoglobin was 5.4 which required 2 units of RBCs transfusion -patient was initiated on IV iron, -ordered iron panel and ferritin -monitor hemoglobin and hematocrit -patient has chronic history of epistaxis -patient reported dark red blood in the stools likely related to constipation -->resume diet --> Not medically stable for colonoscopy at this time --> Will continue to follow closely, once stable, will attempt the colonoscopy again --> Stool occult blood: Negative --> HGB stable at 7.5 --> Continue Iron to build up her blood --> She prefers outpatient colonoscopy; Advised to followup at the GI clinic Possible upper vs lower GI bleed --> EGD was performed on 10/04/2023 showing gastritis with few gastric erosions, grade a erosive esophagitis and 2nd and 3rd part of duodenum had no active bleeding at that time. -patient reported dark red blood in the stools that was grossly visible Acute on chronic systolic heart failure exacerbation (HFrEF 30%) -last echocardiogram was performed on 04/10/2024 showing an LVEF of 35% with mild to moderate mitral regurgitation. -BNP was 3028 - IV furosemide 40 mg daily STOPPED; metoprolol tartrate 50 mg b.i.d., empagliflozin 10 mg q.a.m. and rest of directed medical therapy per hospitalist. --> Repeat chest x-ray: Cardiomegaly. Mild pulmonary vascular congestion --> IV bumex started 05/26/2024 Acute hypoxic respiratory failure likely due to CHF exacerbation -continue management as described above per hospitalist --> Start 2L of oxygen if SpO2 is less than 94 Acute on Chronic kidney disease stage V, likely prerenal vasomotor mediated due to CHF -last creatinine was 1.91, BUN 24 -GFR 28--> 24 -nephrology on board Moderate hyponatremia -->last sodium levels was 123 -->monitor sodium levels and electrolytes per hospitalist Hyperlipidemia -->atorvastatin 20 mg q.d. Type 2 diabetes mellitus -sliding scale insulin, managed per hospitalist Primary hypertension -on losartan 100 mg daily, hydralazine 100 mg b.i.d., metoprolol tartrate 50 mg b.i.d. -monitor blood pressure Code status: Full Goals of care discussed for more than 30 minutes Case and plan discussed with Dr. Domínguez Thank you for allowing us to participate in the care of this patient. Please call if you have any questions or concerns. Plan discussed with: Patient TIM MACIAS RESIDENT May 28, 2024 18:16
[2024-05-28] MEDS: ALBUTEROL SULF 2.5 MG/0.5ML(0.5%) NEB SOLN NEB PRN (21:56)
[2024-05-29] VITALS (10 sets, daily range): BP systolic 124–161; BP diastolic 65–73; PULSE 62–84; RESP 16–19; TEMP 97.9–98.9; O2SAT 92–100
[2024-05-29] MEDS: guaiFENesin-DM 100/10mg/5ml SYR PO PRN (02:11)
[2024-05-29 06:03] LABS: Hematocrit 24.4 % (36.0-46.0); Mean Corpuscular Hemoglobin 23.2 pg (28.0-32.0); Mean Corpuscular Hgb Conc. 32.9 g/dL (32.0-36.0); Mean Corpuscular Volume 70.3 fL (80.0-100.0); Platelet Count (auto) 377 10^3/uL (140-450); Red Blood Cells 3.47 10^6/uL (4.0-5.20); Red Cell Distribution Width 25.2 % (11.8-14.3); White Blood Cell 8.9 10^3/uL (4.4-10.8)
[2024-05-29 06:12] LABS: Band Neutrophils % (manual) 0; Basophils % (manual) 0 (0.0-2.0); Blast Cells 0; Metamyelocytes % 0; Myelocytes % 0; Promyelocytes % 0; Reactive Lymphocytes 0
[2024-05-29 06:32] LABS: Anion Gap 8 (5-15); Calcium 9.5 mg/dL (8.7-10.4); Carbon Dioxide 28 mmol/L (20-31); Chloride 87 mmol/L (98-107); Potassium 3.4 mmol/L (3.5-5.1); Sodium 123 mmol/L (136-145)
[2024-05-29 06:37] LABS: BUN/Creatinine Ratio 14.5 (10.0-20.0)
[2024-05-29 06:47] LABS: Blood Urea Nitrogen 33 mg/dL (9-23); Glucose 149 mg/dL (74-106)
[2024-05-29 09:27] LABS: Anisocytosis Moderate; Eosinophils % (manual) 4 (0-7); Hypochromia Moderate; Lymphocytes % (manual) 5 (10.0-50.0); Monocytes % (manual) 8 (0-12); Platelet Estimate Adequate
--- NOTE | 2024-05-29 10:51 | DVHPN2 ---
Subjective Continue to complain of occasional black stool Reviewed: Care Plan, H&P, Labs, Medications, Previous Orders, Radiology, Other (Consultations) Changes from previous H/P or p: No Changes Objective Vitals Vital Signs Date Time Temp Pulse Resp B/P (MAP) Pulse Ox O2 Delivery O2 Flow Rate FiO2 05/29/24 10:16 94 Nasal Cannula 2.0 05/29/24 10:16 28 05/29/24 08:50 98.1 65 17 160/71 (100) 98.1 Intake/Output Intake and Output 05/29/24 07:00 Intake Total 1116.4 ml Output Total 3100 ml Balance -1983.6 ml Intake Oral 810 ml IV Total 306.4 ml Output Urine Total 3100 ml General Appearance: Alert, Oriented X3, Cooperative, No acute distress HEENT: Other (Pale) Lungs: Clear to auscultation, Normal air movement Cardiovascular: Regular rate, Normal S1, Normal S2 Abdomen: Normal bowel sounds, Soft, No tenderness Genitourinary: Other (Staples's) Neuro: Normal speech, Cranial nerves 3-12 NL Psych/Mental Status: Mental status NL, Mood NL Medications Current Medications Medications Dose Ordered Sig/Yesenia Route Start Time Stop Time Status Last Admin Dose Admin Hydralazine HCl 10 mg Q6HP PRN IV 05/24/24 01:15 05/24/24 19:02 10 MG Atorvastatin Calcium 20 mg HS PO 05/24/24 22:00 05/28/24 21:35 20 MG Diagnostic Test (Pha) 1 strip ACHS 05/24/24 07:00 05/29/24 06:21 1 STRIP Insulin Human Regular ACHS SC 05/24/24 07:00 05/29/24 06:23 3 UNITS Dextrose 50 ml UD PRN IV 05/24/24 01:15 Acetaminophen/ Hydrocodone Bitart 1 tab Q4HP PRN PO 05/24/24 01:15 05/28/24 07:01 1 TAB Ondansetron HCl 4 mg Q4HP PRN IV 05/24/24 01:15 05/24/24 20:44 4 MG Docusate Sodium 100 mg BIDPRN PRN PO 05/24/24 01:15 Acetaminophen 650 mg Q6HP PRN PO 05/24/24 01:15 05/25/24 20:51 650 MG Metoprolol Tartrate 50 mg BID PO 05/24/24 10:00 05/28/24 21:35 50 MG Nitroglycerin 0.4 mg Q5MINP PRN SL 05/24/24 05:00 Morphine Sulfate 2 mg Q30M PRN IV 05/24/24 05:00 Empaglifozin 10 mg QAM PO 05/25/24 07:00 05/29/24 06:17 10 MG Pantoprazole Sodium 40 mg DAILY PO 05/25/24 10:00 05/28/24 10:01 40 MG Losartan Potassium 100 mg DAILY PO 05/25/24 10:00 05/28/24 10:02 100 MG Iron Sucrose 110 ml @ 110 mls/hr DAILY@1200 IV 05/25/24 12:00 05/29/24 12:59 05/28/24 11:36 110 MLS/HR Hydroxyzine HCl 10 mg Q6HP PRN PO 05/25/24 11:15 Bumetanide 12.5 mg/Miscellaneous 50 ml @ 2 mls/hr Q24H IV 05/26/24 11:30 05/28/24 11:28 2 MLS/HR Dopamine HCl/ Dextrose 250 ml @ 6.608 mls/ hr Q24H IV 05/26/24 11:30 05/28/24 07:02 6.608 MLS/HR Hydralazine HCl 50 mg BID PO 05/26/24 22:00 05/28/24 21:34 50 MG Albuterol 2.5 mg Q4HPRN PRN NEB 05/27/24 11:00 Cancel Metolazone 5 mg DAILY PO 05/28/24 10:00 05/28/24 10:02 5 MG Albuterol 2.5 mg Q4HPRN PRN NEB 05/28/24 20:45 05/28/24 21:56 2.5 MG Guaifenesin/ Dextromethorphan 10 ml Q6HPRN PRN PO 05/28/24 23:45 05/29/24 02:11 10 ML Laboratory Results Laboratory Tests 05/29/24 05:19 Chemistry Test 05/29/24 05:19 Calcium Level 9.5 mg/dL (8.7-10.4) Urinalysis Test 05/25/24 13:15 Urine Color Yellow (Yellow) Urine Clarity Clear (Clear) Urine pH 6.0 (5.0-9.0) Urine Specific [place] 1.013 (1.001-1.035) Urine Protein 3+ (Negative) H Urine Ketones Negative (Negative) Urine Blood Negative /uL (Negative) Urine Nitrite Negative (Negative) Urine Bilirubin Negative (Negative) Urine Urobilinogen Normal mg/dL (Negative) Urine Leukocyte Esterase Negative /uL (Negative) Urine RBC 1 /hpf (0 - 4) Urine WBC 1 /hpf (0 - 5) Urine Squamous Epithelial Cells Few /hpf (<5) Urine Bacteria None seen /hpf (None Seen) Urine Osmolality 334 mOsm/kg Urine Creatinine 68.58 mg/dL (30.0-125.0) Urine Protein/Creatinine Ratio 9.16 Urine Sodium 22 mmol/L (40-220) L Urine Glucose 4+ mg/dL (Normal) H Urine Total Protein 628.3 mg/dL (1-14) H Labs and/or images reviewed: Labs reviewed by me, Image(s) reviewed by me Assessment/Plan Assessment/Plan Covering Dr. Rogers: #Severe anemia with melena due to GI bleed; received blood transfusion of 2 units of packed RBCs and IV iron; GI is following; continue current management at this time; unstable to proceed with colonoscopy at this time; continue monitoring #Acute hypoxic respiratory failure due to pulmonary congestion/edema secondary to acute on chronic diastolic/systolic heart failure; continue dopamine infusion as indicated; continue IV diuresis infusion; continue oxygen therapy as needed; continue monitoring #Acute on chronic diastolic/systolic heart failure; details and management as above; telemetry; continue dopamine infusion as indicated; continue monitoring #YOVANI and CKD 3B; most likely vasomotor nephropathy; received IV fluids; avoid nephrotoxic agents; strict input and output monitoring with Staples's catheter; followed by Nephrology; continue monitoring #Severe hyponatremia due to excess water as per Nephrology; asymptomatic; continue current medical management with slow correction; continue monitoring #Hypertensive heart disease with heart failure; continue antihypertensive medications as indicated; continue monitoring #Controlled diabetes mellitus type 2 with hyperglycemia and A1c of 5.5%; continue insulin sliding scale with hypoglycemia protocol; continue monitoring #Obesity; counseled the patient importance of adopting healthy lifestyle with diet and exercise in order to lose weight; continue monitoring #CAD; hold antiplatelets in the setting of GI bleed; continue rest of medical management of atorvastatin; continue monitoring Goals of care discussed for 20 minutes with the patient; full code. 60 minutes of critical care time. Late Entry. This medical document was created using an electronic medical record system with computerized dictation system. Although this document has been carefully reviewed, there might still be some phonetic and typographical errors. These areas are purely typographical due to imperfections of the software programs, and do not reflect any compromise in the patient's medical care. Plan discussed with: Patient, Other (Nurse) Date of Service: May 29, 2024 Billing Provider: ALFONSO MATTHEW MD Common Visit Codes: [id number] CARE 30-74 MIN (60 minutes) Secondary Visit Codes: [id number] CARE PLAN 30 MINUTES (20 minutes) ALFONSO MATTHEW MD May 29, 2024 10:51
--- NOTE | 2024-05-29 10:56 | DVHPN2 ---
Progress Note Date Seen: May 29, 2024 Medical Necessity Reason Pt with a Central, PICC or Fol: Yes The following are medically ne: Mendosa Catheter Reason for mendosa catheter: Strict I&O Subjective Patient reports: No new complaints Objective vital signs Vital Sign Date Time Temp Pulse Resp B/P (MAP) Pulse Ox O2 Delivery O2 Flow Rate FiO2 05/29/24 10:16 94 Nasal Cannula 2.0 05/29/24 10:16 28 05/29/24 08:50 98.1 65 17 160/71 (100) 98.1 Total Intake and Output 05/28/24 05/28/24 05/29/24 15:00 23:00 07:00 Intake Total 110 ml 653.2 ml 353.2 ml Output Total 2550 ml 550 ml Balance 110 ml -1896.8 ml -196.8 ml medications Current Medications Medications Dose Ordered Sig/Yesenia Route Start Time Stop Time Status Last Admin Dose Admin Hydralazine HCl 10 mg Q6HP PRN IV 05/24/24 01:15 05/24/24 19:02 10 MG Atorvastatin Calcium 20 mg HS PO 05/24/24 22:00 05/28/24 21:35 20 MG Diagnostic Test (Pha) 1 strip ACHS 05/24/24 07:00 05/29/24 06:21 1 STRIP Insulin Human Regular ACHS SC 05/24/24 07:00 05/29/24 06:23 3 UNITS Dextrose 50 ml UD PRN IV 05/24/24 01:15 Acetaminophen/ Hydrocodone Bitart 1 tab Q4HP PRN PO 05/24/24 01:15 05/28/24 07:01 1 TAB Ondansetron HCl 4 mg Q4HP PRN IV 05/24/24 01:15 05/24/24 20:44 4 MG Docusate Sodium 100 mg BIDPRN PRN PO 05/24/24 01:15 Acetaminophen 650 mg Q6HP PRN PO 05/24/24 01:15 05/25/24 20:51 650 MG Metoprolol Tartrate 50 mg BID PO 05/24/24 10:00 05/28/24 21:35 50 MG Nitroglycerin 0.4 mg Q5MINP PRN SL 05/24/24 05:00 Morphine Sulfate 2 mg Q30M PRN IV 05/24/24 05:00 Empaglifozin 10 mg QAM PO 05/25/24 07:00 05/29/24 06:17 10 MG Pantoprazole Sodium 40 mg DAILY PO 05/25/24 10:00 05/28/24 10:01 40 MG Losartan Potassium 100 mg DAILY PO 05/25/24 10:00 05/28/24 10:02 100 MG Iron Sucrose 110 ml @ 110 mls/hr DAILY@1200 IV 05/25/24 12:00 05/29/24 12:59 05/28/24 11:36 110 MLS/HR Hydroxyzine HCl 10 mg Q6HP PRN PO 05/25/24 11:15 Bumetanide 12.5 mg/Miscellaneous 50 ml @ 2 mls/hr Q24H IV 05/26/24 11:30 05/28/24 11:28 2 MLS/HR Dopamine HCl/ Dextrose 250 ml @ 6.608 mls/ hr Q24H IV 05/26/24 11:30 05/28/24 07:02 6.608 MLS/HR Hydralazine HCl 50 mg BID PO 05/26/24 22:00 05/28/24 21:34 50 MG Albuterol 2.5 mg Q4HPRN PRN NEB 05/27/24 11:00 Cancel Metolazone 5 mg DAILY PO 05/28/24 10:00 05/28/24 10:02 5 MG Albuterol 2.5 mg Q4HPRN PRN NEB 05/28/24 20:45 05/28/24 21:56 2.5 MG Guaifenesin/ Dextromethorphan 10 ml Q6HPRN PRN PO 05/28/24 23:45 05/29/24 02:11 10 ML Examination: GENERAL:Abnormal, CVS:Abnormal, ABDOMEN:Abnormal, SKIN:Abnormal laboratory and microbiology Laboratory Tests 05/29/24 05:19 Test 05/29/24 05:19 Range/Units Serum Glucose 149 H 74-106 mg/dL Problem List/Assessment/Plan Problem List/Assessment/Plan Acute kidney injury ckd 3b Congestive heart failure exacerbation COPD exacerbation Hyponatremia due to excess H2O Significant anemia status post packed red blood cell transfusion Iron deficiency anemia Hypertension Hyperglycemia rule out diabetes mellitus hypokalemia slow down rate of diuresis now that significant fluid remoced stop bumex drip convert to IVP, dc metolazone, replace potassium today dc dobutamine Mendosa catheter s/p IV iron Strict I&Os kidney ultrasound reported bilateral echogenic kidney albuterol treatment PRN Insulin sliding scale Fluid restrictions Plan discussed with: Patient TIM SALES MD May 29, 2024 10:56
[2024-05-29] MEDS: BUMETANIDE 2.5mg/10ml (0.25 mg/ml) INJ IV SCH (12:51)
[2024-05-29] MEDS: POTASSIUM EFFERVESENT TAB 25 MEQ PO ONE (12:51)
--- NOTE | 2024-05-29 13:14 | DVHPN2 ---
Progress Note Date Seen: May 29, 2024 Resident Creating Document: TIM MACIAS Medical Necessity Reason Pt with a Central, PICC or Fol: Yes The following are medically ne: Mendosa Catheter Reason for mendosa catheter: Strict I&O Medical Necessity Reason CHF exacerbation Acute respiratory failure Subjective Review of Systems Patient is seen and examined today. She is doing much better than yesterday lab work conversational. She is still complained of shortness of breaths point son has number she is fine on her leg this noted to be scratches. She has been spoken to by her primary care doctor. She has scratches on her legs. She has been advised to follow up with the media associate. Otherwise she is doing well. she has not had any major complaint. Patient again insisted that she would like to have corner down outpatient versus inpatient. Objective vital signs Vital Sign Date Time Temp Pulse Resp B/P (MAP) Pulse Ox O2 Delivery O2 Flow Rate FiO2 05/29/24 12:51 97.9 73 17 161/69 (99) 96 97.9 05/29/24 10:16 Nasal Cannula 2.0 05/29/24 10:16 28 Total Intake and Output 05/28/24 05/28/24 05/29/24 15:00 23:00 07:00 Intake Total 110 ml 653.2 ml 353.2 ml Output Total 2550 ml 550 ml Balance 110 ml -1896.8 ml -196.8 ml medications Current Medications Medications Dose Ordered Sig/Yesenia Route Start Time Stop Time Status Last Admin Dose Admin Hydralazine HCl 10 mg Q6HP PRN IV 05/24/24 01:15 05/24/24 19:02 10 MG Atorvastatin Calcium 20 mg HS PO 05/24/24 22:00 05/28/24 21:35 20 MG Diagnostic Test (Pha) 1 strip ACHS 05/24/24 07:00 05/29/24 11:30 1 STRIP Insulin Human Regular ACHS SC 05/24/24 07:00 05/29/24 11:48 3 UNITS Dextrose 50 ml UD PRN IV 05/24/24 01:15 Acetaminophen/ Hydrocodone Bitart 1 tab Q4HP PRN PO 05/24/24 01:15 05/28/24 07:01 1 TAB Ondansetron HCl 4 mg Q4HP PRN IV 05/24/24 01:15 05/24/24 20:44 4 MG Docusate Sodium 100 mg BIDPRN PRN PO 05/24/24 01:15 Acetaminophen 650 mg Q6HP PRN PO 05/24/24 01:15 05/25/24 20:51 650 MG Metoprolol Tartrate 50 mg BID PO 05/24/24 10:00 05/29/24 11:30 50 MG Nitroglycerin 0.4 mg Q5MINP PRN SL 05/24/24 05:00 Morphine Sulfate 2 mg Q30M PRN IV 05/24/24 05:00 Empaglifozin 10 mg QAM PO 05/25/24 07:00 05/29/24 06:17 10 MG Pantoprazole Sodium 40 mg DAILY PO 05/25/24 10:00 05/29/24 11:29 40 MG Losartan Potassium 100 mg DAILY PO 05/25/24 10:00 05/29/24 11:29 100 MG Hydroxyzine HCl 10 mg Q6HP PRN PO 05/25/24 11:15 Dopamine HCl/ Dextrose 250 ml @ 6.608 mls/ hr Q24H IV 05/26/24 11:30 05/28/24 07:02 6.608 MLS/HR Hydralazine HCl 50 mg BID PO 05/26/24 22:00 05/29/24 11:28 50 MG Albuterol 2.5 mg Q4HPRN PRN NEB 05/27/24 11:00 Cancel Albuterol 2.5 mg Q4HPRN PRN NEB 05/28/24 20:45 05/28/24 21:56 2.5 MG Guaifenesin/ Dextromethorphan 10 ml Q6HPRN PRN PO 05/28/24 23:45 05/29/24 02:11 10 ML Bumetanide 1 mg BIDD IV 05/29/24 11:00 05/29/24 12:51 1 MG Examination General examination- Not in acute distress HEENT: PEERLA, no acute nasal discharge Chest: S1-S2 audible, rate and rhythm regular, no murmur Lung: CTAB, no wheeze or rhonchi Abdomen: Nondistend, BS+, nontenderness, no organomegaly Musculoskeletal: no acute joint swelling or tenderness Lower extremity: no leg edema Neurological: cranial nerves intact, no acute dysarthria or dysphagia Psychiatry-- Normal mood and affect Skin- no acute rash or purpura laboratory and microbiology Laboratory Tests 05/29/24 05:19 Test 05/29/24 05:19 Range/Units Serum Glucose 149 H 74-106 mg/dL Problem List/Assessment/Plan Problem List/Assessment/Plan Acute on chronic severe microcytic/hypochromic anemia -initial hemoglobin was 5.4 which required 2 units of RBCs transfusion -patient was initiated on IV iron, -ordered iron panel and ferritin -monitor hemoglobin and hematocrit -patient has chronic history of epistaxis: None note so far -patient reported dark red blood in the stools likely related to constipation -->resume diet --> Not medically stable for colonoscopy at this time --> Will continue to follow closely, once stable, will attempt the colonoscopy again --> Stool occult blood: Negative --> HGB stable at 7.5 --> Continue Iron to build up her blood --> She prefers outpatient colonoscopy; Advised to followup at the GI clinic Possible upper vs lower GI bleed --> EGD was performed on 10/04/2023 showing gastritis with few gastric erosions, grade a erosive esophagitis and 2nd and 3rd part of duodenum had no active bleeding at that time. -patient reported dark red blood in the stools that was grossly visible Acute on chronic systolic heart failure exacerbation (HFrEF 30%) -last echocardiogram was performed on 04/10/2024 showing an LVEF of 35% with mild to moderate mitral regurgitation. -BNP was 3028 - IV furosemide 40 mg daily STOPPED; metoprolol tartrate 50 mg b.i.d., empagliflozin 10 mg q.a.m. and rest of directed medical therapy per hospitalist. --> Repeat chest x-ray: Cardiomegaly. Mild pulmonary vascular congestion --> IV bumex started 05/26/2024 Acute hypoxic respiratory failure likely due to CHF exacerbation -continue management as described above per hospitalist --> Start 2L of oxygen if SpO2 is less than 94 Acute on Chronic kidney disease stage V, likely prerenal vasomotor mediated due to CHF -last creatinine was 1.91, BUN 24 -GFR 28--> 24 -nephrology on board Moderate hyponatremia -->last sodium levels was 123 -->monitor sodium levels and electrolytes per hospitalist Hyperlipidemia -->atorvastatin 20 mg q.d. Type 2 diabetes mellitus -sliding scale insulin, managed per hospitalist Primary hypertension -on losartan 100 mg daily, hydralazine 100 mg b.i.d., metoprolol tartrate 50 mg b.i.d. -monitor blood pressure Code status: Full Goals of care discussed for more than 30 minutes Case and plan discussed with Dr. Domínguez Thank you for allowing us to participate in the care of this patient. Please call if you have any questions or concerns. Plan discussed with: Patient TIM MACIAS RESIDENT May 29, 2024 13:14
[2024-05-30] VITALS (13 sets, daily range): BP systolic 98–162; BP diastolic 60–74; PULSE 57–77; RESP 16–19; TEMP 97.5–98.1; O2SAT 92–100
[2024-05-30] MEDS: METOPROLOL TARTRATE 25 MG TAB PO ONE (00:03)
[2024-05-30] MEDS: hydrALAZINE HCL 25 MG TAB PO SCH (00:04)
--- NOTE | 2024-05-30 06:43 | DVHPN2 ---
Subjective Complains of itching and pain surrounding Staples's catheter Reviewed: Care Plan, H&P, Labs, Medications, Previous Orders, Radiology, Other (Consultations) Changes from previous H/P or p: Changes Objective Vitals Vital Signs Date Time Temp Pulse Resp B/P (MAP) Pulse Ox O2 Delivery O2 Flow Rate FiO2 05/30/24 05:06 143/78 05/30/24 05:00 97.7 66 18 95 97.7 05/29/24 22:34 Nasal Cannula 2.0 05/29/24 22:34 28 Intake/Output Intake and Output 05/30/24 07:00 Intake Total 1396 ml Output Total 5550 ml Balance -4154 ml Intake Oral 1396 ml Output Urine Total 5550 ml Exam Clerical Assistant was female RN General Appearance: Alert, Oriented X3, Cooperative, No acute distress HEENT: Other (Pale) Lungs: Clear to auscultation, Normal air movement Cardiovascular: Regular rate, Normal S1, Normal S2 Abdomen: Normal bowel sounds, Soft, No tenderness Genitourinary: Other (Staples's) PERSONAL ATTENDANT: Other (Blanchable redness in valvular area surrounding Staples's with some scattered white spots) Neuro: Normal speech, Cranial nerves 3-12 NL Psych/Mental Status: Mental status NL, Mood NL Medications Current Medications Medications Dose Ordered Sig/Yesenia Route Start Time Stop Time Status Last Admin Dose Admin Hydralazine HCl 10 mg Q6HP PRN IV 05/24/24 01:15 05/24/24 19:02 10 MG Atorvastatin Calcium 20 mg HS PO 05/24/24 22:00 05/28/24 21:35 20 MG Diagnostic Test (Pha) 1 strip ACHS 05/24/24 07:00 05/30/24 05:07 1 STRIP Insulin Human Regular ACHS SC 05/24/24 07:00 05/30/24 04:54 2 UNITS Dextrose 50 ml UD PRN IV 05/24/24 01:15 Acetaminophen/ Hydrocodone Bitart 1 tab Q4HP PRN PO 05/24/24 01:15 05/28/24 07:01 1 TAB Ondansetron HCl 4 mg Q4HP PRN IV 05/24/24 01:15 05/24/24 20:44 4 MG Docusate Sodium 100 mg BIDPRN PRN PO 05/24/24 01:15 Acetaminophen 650 mg Q6HP PRN PO 05/24/24 01:15 05/25/24 20:51 650 MG Nitroglycerin 0.4 mg Q5MINP PRN SL 05/24/24 05:00 Morphine Sulfate 2 mg Q30M PRN IV 05/24/24 05:00 Empaglifozin 10 mg QAM PO 05/25/24 07:00 05/30/24 05:06 10 MG Pantoprazole Sodium 40 mg DAILY PO 05/25/24 10:00 05/29/24 11:29 40 MG Losartan Potassium 100 mg DAILY PO 05/25/24 10:00 05/29/24 11:29 100 MG Hydroxyzine HCl 10 mg Q6HP PRN PO 05/25/24 11:15 Dopamine HCl/ Dextrose 250 ml @ 6.608 mls/ hr Q24H IV 05/26/24 11:30 05/29/24 17:58 6.608 MLS/HR Albuterol 2.5 mg Q4HPRN PRN NEB 05/27/24 11:00 Cancel Albuterol 2.5 mg Q4HPRN PRN NEB 05/28/24 20:45 05/28/24 21:56 2.5 MG Guaifenesin/ Dextromethorphan 10 ml Q6HPRN PRN PO 05/28/24 23:45 05/29/24 02:11 10 ML Bumetanide 1 mg BIDD IV 05/29/24 11:00 05/30/24 05:06 1 MG Hydralazine HCl 50 mg Q12HR PO 05/29/24 22:00 05/30/24 00:04 50 MG Laboratory Results Laboratory Tests 05/29/24 05:19 Urinalysis Test 05/25/24 13:15 Urine Color Yellow (Yellow) Urine Clarity Clear (Clear) Urine pH 6.0 (5.0-9.0) Urine Specific [place] 1.013 (1.001-1.035) Urine Protein 3+ (Negative) H Urine Ketones Negative (Negative) Urine Blood Negative /uL (Negative) Urine Nitrite Negative (Negative) Urine Bilirubin Negative (Negative) Urine Urobilinogen Normal mg/dL (Negative) Urine Leukocyte Esterase Negative /uL (Negative) Urine RBC 1 /hpf (0 - 4) Urine WBC 1 /hpf (0 - 5) Urine Squamous Epithelial Cells Few /hpf (<5) Urine Bacteria None seen /hpf (None Seen) Urine Osmolality 334 mOsm/kg Urine Creatinine 68.58 mg/dL (30.0-125.0) Urine Protein/Creatinine Ratio 9.16 Urine Sodium 22 mmol/L (40-220) L Urine Glucose 4+ mg/dL (Normal) H Urine Total Protein 628.3 mg/dL (1-14) H Labs and/or images reviewed: Labs reviewed by me, Image(s) reviewed by me Assessment/Plan Assessment/Plan Covering Dr. Rogers: #Severe anemia with melena due to GI bleed; received blood transfusion of 2 units of packed RBCs and IV iron; GI is following; continue current management at this time; unstable to proceed with colonoscopy at this time; continue monitoring #Acute hypoxic respiratory failure due to pulmonary congestion/edema secondary to acute on chronic diastolic/systolic heart failure; continue dopamine infusion as indicated; continue IV diuresis infusion; continue oxygen therapy as needed; continue monitoring #Acute on chronic diastolic/systolic heart failure; details and management as above; telemetry; continue dopamine infusion as indicated; continue monitoring #YOVANI and CKD 3B; most likely vasomotor nephropathy; received IV fluids; avoid nephrotoxic agents; strict input and output monitoring with Staples's catheter; followed by Nephrology; continue monitoring #Severe hyponatremia due to excess water as per Nephrology; asymptomatic; continue current medical management with slow correction; continue monitoring #Hypertensive heart disease with heart failure; continue antihypertensive medications as indicated; continue monitoring #Controlled diabetes mellitus type 2 with hyperglycemia and A1c of 5.5%; continue insulin sliding scale with hypoglycemia protocol; continue monitoring #Obesity; counseled the patient importance of adopting healthy lifestyle with diet and exercise in order to lose weight; continue monitoring #CAD; hold antiplatelets in the setting of GI bleed; continue rest of medical management of atorvastatin; continue monitoring #Suspected vulvar fungal rash; started on nystatin powder; continue monitoring 45 minutes of critical care time. Late Entry. This medical document was created using an electronic medical record system with computerized dictation system. Although this document has been carefully reviewed, there might still be some phonetic and typographical errors. These areas are purely typographical due to imperfections of the software programs, and do not reflect any compromise in the patient's medical care. Plan discussed with: Patient, Other (Nurse) My Orders Orders - ALFONSO MATTHEW MD Procedure Category Date Status Time Complete Blood Count LAB 05/30/24 Logged 04:00 Comprehensive LAB 05/30/24 Logged Metabolic Panel 04:00 Magnesium LAB 05/30/24 Logged 04:00 Date of Service: May 30, 2024 Billing Provider: ALFONSO MATTHEW MD Common Visit Codes: [id number] CARE 30-74 MIN (45 minutes) ALFONSO MATTHEW MD May 30, 2024 06:43
[2024-05-30 07:52] LABS: Basophils % (auto) 0.6 % (0.0-2.0); Eosinophils # (auto) 0.2 10 ^3/uL (0-0.8); Eosinophils % (auto) 2.3 % (0.0-7.0); Nucleated Red Blood Cells % 0.1 %; White Blood Cell 8.4 10^3/uL (4.4-10.8)
[2024-05-30 07:55] LABS: Basophils # (auto) 0.1 10 ^3/uL (0-0.2); Hemoglobin 8.7 g/dL (12.2-16.2); Lymphocytes # (auto) 0.9 10 ^3/uL (0.4-5.4); Lymphocytes % (auto) 10.6 % (10.0-50.0); Mean Corpuscular Hemoglobin 22.8 pg (28.0-32.0); Mean Corpuscular Hgb Conc. 32.3 g/dL (32.0-36.0); Mean Corpuscular Volume 70.5 fL (80.0-100.0); Monocytes # (auto) 0.7 10 ^3/uL (0-1.3); Monocytes % (auto) 8.2 % (0.0-12.0); Neutrophils # (auto) 6.5 10 ^3/uL (1.6-8.6); Neutrophils % (auto) 78.3 % (37.0-80.0); Platelet Count (auto) 390 10^3/uL (140-450); Red Blood Cells 3.84 10^6/uL (4.0-5.20)
[2024-05-30 08:03] LABS: Red Cell Distribution Width 25.8 % (11.8-14.3)
[2024-05-30 08:16] LABS: Alanine Aminotransferase 14 U/L (7-40); Anion Gap 7 (5-15); Aspartate Aminotransferase 20 U/L (13-40); BUN/Creatinine Ratio 14.3 (10.0-20.0); Calcium 9.3 mg/dL (8.7-10.4); Magnesium 2.1 mg/dL (1.6-2.6)
[2024-05-30 08:17] LABS: Bilirubin, Total 0.6 mg/dL (0.2-1.0)
[2024-05-30 08:44] LABS: Albumin 3.1 g/dL (3.2-4.8); Alkaline Phosphatase 122 U/L (46-116); Blood Urea Nitrogen 34 mg/dL (9-23); Carbon Dioxide 32 mmol/L (20-31); Chloride 84 mmol/L (98-107); Glucose 111 mg/dL (74-106); Potassium 3.2 mmol/L (3.5-5.1); Sodium 123 mmol/L (136-145); Total Protein 5.2 g/dL (5.7-8.2)
[2024-05-30 09:18] LABS: Anisocytosis Moderate
[2024-05-30 09:19] LABS: Hypochromia Moderate; Platelet Estimate Adequate
--- NOTE | 2024-05-30 17:19 | DVHPN2 ---
Progress Note Date Seen: May 30, 2024 Resident Creating Document: TIM MACIAS RESIDENT Medical Necessity Reason Pt with a Central, PICC or Fol: Yes The following are medically ne: Mendosa Catheter Reason for mendosa catheter: Strict I&O Medical Necessity Reason CHF exacerbation Anemia to rule out GI cause Subjective Review of Systems PN: 05/30/2024 Patient is seen and examined today. Patient was on the phone today crying because she feels like she has been unable to get work done. Patient mentioned that she has a lot of things she would like to do at home; but she is in the hospital now and fels really sad and is wanting to know when she can go home. Other than that, patient is doing a lot better and she looks a lot better than yesterday and the day before. She denies any abdominal pain, hematemesis, diarrhea. About colonoscopy, she prefers to have it done as an outpatient elective procedure. Patient is encouraged to follow up at GI clinic and schedule for the colonoscopy outpatient upon discharge. Objective vital signs Vital Sign Date Time Temp Pulse Resp B/P (MAP) Pulse Ox O2 Delivery O2 Flow Rate FiO2 05/30/24 16:58 98.1 63 18 98/60 (73) 100 98.1 05/30/24 11:02 0.0 21 05/30/24 10:30 Room Air Total Intake and Output 05/29/24 05/29/24 05/30/24 15:00 23:00 07:00 Intake Total 1296 ml 100 ml Output Total 2550 ml 3000 ml Balance -1254 ml -2900 ml medications Current Medications Medications Dose Ordered Sig/Yesenia Route Start Time Stop Time Status Last Admin Dose Admin Hydralazine HCl 10 mg Q6HP PRN IV 05/24/24 01:15 05/24/24 19:02 10 MG Atorvastatin Calcium 20 mg HS PO 05/24/24 22:00 05/28/24 21:35 20 MG Diagnostic Test (Pha) 1 strip ACHS 05/24/24 07:00 05/30/24 16:37 1 STRIP Insulin Human Regular ACHS SC 05/24/24 07:00 05/30/24 11:40 3 UNITS Dextrose 50 ml UD PRN IV 05/24/24 01:15 Acetaminophen/ Hydrocodone Bitart 1 tab Q4HP PRN PO 05/24/24 01:15 05/28/24 07:01 1 TAB Ondansetron HCl 4 mg Q4HP PRN IV 05/24/24 01:15 05/24/24 20:44 4 MG Docusate Sodium 100 mg BIDPRN PRN PO 05/24/24 01:15 Acetaminophen 650 mg Q6HP PRN PO 05/24/24 01:15 05/25/24 20:51 650 MG Nitroglycerin 0.4 mg Q5MINP PRN SL 05/24/24 05:00 Morphine Sulfate 2 mg Q30M PRN IV 05/24/24 05:00 Empaglifozin 10 mg QAM PO 05/25/24 07:00 05/30/24 05:06 10 MG Pantoprazole Sodium 40 mg DAILY PO 05/25/24 10:00 05/30/24 10:21 40 MG Losartan Potassium 100 mg DAILY PO 05/25/24 10:00 05/30/24 10:21 100 MG Hydroxyzine HCl 10 mg Q6HP PRN PO 05/25/24 11:15 Dopamine HCl/ Dextrose 250 ml @ 6.608 mls/ hr Q24H IV 05/26/24 11:30 05/30/24 16:00 6.608 MLS/HR Albuterol 2.5 mg Q4HPRN PRN NEB 05/27/24 11:00 Cancel Albuterol 2.5 mg Q4HPRN PRN NEB 05/28/24 20:45 05/28/24 21:56 2.5 MG Guaifenesin/ Dextromethorphan 10 ml Q6HPRN PRN PO 05/28/24 23:45 05/29/24 02:11 10 ML Bumetanide 1 mg BIDD IV 05/29/24 11:00 05/30/24 05:06 1 MG Nystatin 1 applic BID TOP 05/30/24 22:00 Examination General examination- Not in acute distress HEENT: PEERLA, no acute nasal discharge Chest: S1-S2 audible, rate and rhythm regular, no murmur Lung: CTAB, no wheeze or rhonchi Abdomen: Nondistend, BS+, nontenderness, no organomegaly Musculoskeletal: no acute joint swelling or tenderness Lower extremity: no leg edema, scratches/rashes on her legs bilateral Neurological: cranial nerves intact, no acute dysarthria or dysphagia Psychiatry-- Normal mood and affect Skin- no acute rash or purpura laboratory and microbiology Laboratory Tests 05/30/24 07:01 Test 05/30/24 07:01 Range/Units Serum Glucose 111 H 74-106 mg/dL Problem List/Assessment/Plan Problem List/Assessment/Plan Acute on chronic severe microcytic/hypochromic anemia -initial hemoglobin was 5.4 which required 2 units of RBCs transfusion -patient was initiated on IV iron, -ordered iron panel and ferritin -monitor hemoglobin and hematocrit -patient has chronic history of epistaxis: None note so far -patient reported dark red blood in the stools likely related to constipation -->resume diet --> Will continue to follow closely, once stable, will attempt the colonoscopy again --> Stool occult blood: Negative --> HGB stable at 8.7 --> She prefers outpatient colonoscopy; Advised to followup at the GI clinic Possible upper vs lower GI bleed --> EGD was performed on 10/04/2023 showing gastritis with few gastric erosions, grade a erosive esophagitis and 2nd and 3rd part of duodenum had no active bleeding at that time. -patient reported dark red blood in the stools that was grossly visible Acute on chronic systolic heart failure exacerbation (HFrEF 30%) -last echocardiogram was performed on 04/10/2024 showing an LVEF of 35% with mild to moderate mitral regurgitation. -BNP was 3028 - IV furosemide 40 mg daily STOPPED; metoprolol tartrate 50 mg b.i.d., empagliflozin 10 mg q.a.m. and rest of directed medical therapy per hospitalist. --> Repeat chest x-ray: Cardiomegaly. Mild pulmonary vascular congestion --> IV bumex started 05/26/2024 Acute hypoxic respiratory failure likely due to CHF exacerbation -continue management as described above per hospitalist --> Start 2L of oxygen if SpO2 is less than 94 Acute on Chronic kidney disease stage V, likely prerenal vasomotor mediated due to CHF -last creatinine was 1.91, BUN 24 -GFR 28--> 24 -nephrology on board Moderate hyponatremia -->last sodium levels was 123 -->monitor sodium levels and electrolytes per hospitalist Hyperlipidemia -->atorvastatin 20 mg q.d. Type 2 diabetes mellitus -sliding scale insulin, managed per hospitalist Primary hypertension -on losartan 100 mg daily, hydralazine 100 mg b.i.d., metoprolol tartrate 50 mg b.i.d. -monitor blood pressure Code status: Full Goals of care discussed for more than 20 minutes Case and plan discussed with Dr. Domínguez Thank you for allowing us to participate in the care of this patient. Please call if you have any questions or concerns. Plan discussed with: Patient Dietary Evaluation Review Comments: follow current diet, monitor intake to meet 75% of her needs Expected Outcomes/Goals: contolled DM, gradual weight loss, improved lab values TIM MACIAS RESIDENT May 30, 2024 17:19
--- NOTE | 2024-05-30 18:04 | DVHPN2 ---
Progress Note Date Seen: May 30, 2024 Medical Necessity Reason Pt with a Central, PICC or Fol: Yes The following are medically ne: Mendosa Catheter Reason for mendosa catheter: Strict I&O Subjective Patient reports: Other Objective vital signs Vital Sign Date Time Temp Pulse Resp B/P (MAP) Pulse Ox O2 Delivery O2 Flow Rate FiO2 05/30/24 17:52 98/60 05/30/24 16:58 98.1 63 18 100 98.1 05/30/24 11:02 0.0 21 05/30/24 10:30 Room Air Total Intake and Output 05/29/24 05/29/24 05/30/24 15:00 23:00 07:00 Intake Total 1296 ml 100 ml Output Total 2550 ml 3000 ml Balance -1254 ml -2900 ml medications Current Medications Medications Dose Ordered Sig/Yesenia Route Start Time Stop Time Status Last Admin Dose Admin Hydralazine HCl 10 mg Q6HP PRN IV 05/24/24 01:15 05/24/24 19:02 10 MG Atorvastatin Calcium 20 mg HS PO 05/24/24 22:00 05/28/24 21:35 20 MG Diagnostic Test (Pha) 1 strip ACHS 05/24/24 07:00 05/30/24 16:37 1 STRIP Insulin Human Regular ACHS SC 05/24/24 07:00 05/30/24 11:40 3 UNITS Dextrose 50 ml UD PRN IV 05/24/24 01:15 Acetaminophen/ Hydrocodone Bitart 1 tab Q4HP PRN PO 05/24/24 01:15 05/28/24 07:01 1 TAB Ondansetron HCl 4 mg Q4HP PRN IV 05/24/24 01:15 05/24/24 20:44 4 MG Docusate Sodium 100 mg BIDPRN PRN PO 05/24/24 01:15 Acetaminophen 650 mg Q6HP PRN PO 05/24/24 01:15 05/25/24 20:51 650 MG Nitroglycerin 0.4 mg Q5MINP PRN SL 05/24/24 05:00 Morphine Sulfate 2 mg Q30M PRN IV 05/24/24 05:00 Empaglifozin 10 mg QAM PO 05/25/24 07:00 05/30/24 05:06 10 MG Pantoprazole Sodium 40 mg DAILY PO 05/25/24 10:00 05/30/24 10:21 40 MG Losartan Potassium 100 mg DAILY PO 05/25/24 10:00 05/30/24 10:21 100 MG Hydroxyzine HCl 10 mg Q6HP PRN PO 05/25/24 11:15 Dopamine HCl/ Dextrose 250 ml @ 6.608 mls/ hr Q24H IV 05/26/24 11:30 05/30/24 16:00 6.608 MLS/HR Albuterol 2.5 mg Q4HPRN PRN NEB 05/27/24 11:00 Cancel Albuterol 2.5 mg Q4HPRN PRN NEB 05/28/24 20:45 05/28/24 21:56 2.5 MG Guaifenesin/ Dextromethorphan 10 ml Q6HPRN PRN PO 05/28/24 23:45 05/29/24 02:11 10 ML Bumetanide 1 mg BIDD IV 05/29/24 11:00 05/30/24 05:06 1 MG Nystatin 1 applic BID TOP 05/30/24 22:00 Examination: GENERAL:Abnormal, CVS:Abnormal, ABDOMEN:Abnormal laboratory and microbiology Laboratory Tests 05/30/24 07:01 Test 05/30/24 07:01 Range/Units Serum Glucose 111 H 74-106 mg/dL Problem List/Assessment/Plan Problem List/Assessment/Plan Acute kidney injury ckd 3b Congestive heart failure exacerbation COPD exacerbation Hyponatremia due to excess H2O Significant anemia status post packed red blood cell transfusion Iron deficiency anemia Hypertension Hyperglycemia rule out diabetes mellitus hypokalemia BP has been labile likely contributing to worsening cr convert diuretics to po replace potassium today dc dobutamine Mendosa catheter s/p IV iron Strict I&Os kidney ultrasound reported bilateral echogenic kidney albuterol treatment PRN Insulin sliding scale Fluid restrictions Plan discussed with: Patient My Orders My Orders Orders - TIM SALES MD Procedure Category Date Status Time Bumetanide Tablet PHA 05/31/24 Transmitted (Bumex Tablet) 10:00 Dietary Evaluation Review Comments: follow current diet, monitor intake to meet 75% of her needs Expected Outcomes/Goals: contolled DM, gradual weight loss, improved lab values TIM SALES MD May 30, 2024 18:04
[2024-05-30] MEDS: POTASSIUM EFFERVESENT TAB 25 MEQ PO ONE (22:55)
[2024-05-30] MEDS: NYSTATIN TOPICAL POWDER 15GM TOP SCH (23:16)
[2024-05-31] VITALS (12 sets, daily range): BP systolic 134–184; BP diastolic 63–77; PULSE 64–89; RESP 17–20; TEMP 97.4–98.6; O2SAT 96–100
[2024-05-31 05:55] LABS: Basophils # (auto) 0.1 10 ^3/uL (0-0.2); Hematocrit 30.1 % (36.0-46.0); Monocytes # (auto) 0.6 10 ^3/uL (0-1.3); White Blood Cell 8.5 10^3/uL (4.4-10.8)
[2024-05-31 06:05] LABS: Eosinophils # (auto) 0.1 10 ^3/uL (0-0.8); Eosinophils % (auto) 1.7 % (0.0-7.0); Hemoglobin 9.8 g/dL (12.2-16.2); Lymphocytes # (auto) 0.8 10 ^3/uL (0.4-5.4); Lymphocytes % (auto) 9.7 % (10.0-50.0); Mean Corpuscular Hemoglobin 23.2 pg (28.0-32.0); Mean Corpuscular Hgb Conc. 32.7 g/dL (32.0-36.0); Mean Corpuscular Volume 70.8 fL (80.0-100.0); Monocytes % (auto) 7.6 % (0.0-12.0); Neutrophils # (auto) 6.8 10 ^3/uL (1.6-8.6); Platelet Count (auto) 393 10^3/uL (140-450); Red Blood Cells 4.25 10^6/uL (4.0-5.20)
[2024-05-31 06:06] LABS: Red Cell Distribution Width 27.3 % (11.8-14.3)
[2024-05-31 06:10] LABS: Calcium 9.3 mg/dL (8.7-10.4); Potassium 3.7 mmol/L (3.5-5.1)
[2024-05-31 06:11] LABS: Anion Gap 7 (5-15)
[2024-05-31 06:16] LABS: BUN/Creatinine Ratio 15.8 (10.0-20.0); Glucose 104 mg/dL (74-106); Magnesium 2.3 mg/dL (1.6-2.6)
[2024-05-31 06:28] LABS: Blood Urea Nitrogen 34 mg/dL (9-23); Carbon Dioxide 32 mmol/L (20-31); Chloride 85 mmol/L (98-107); Sodium 124 mmol/L (136-145)
[2024-05-31 07:37] LABS: Platelet Estimate Adequate
[2024-05-31 07:38] LABS: Anisocytosis Moderate; Hypochromia Moderate; Ovalocytes FEW
[2024-05-31] MEDS: BUMETANIDE 1 MG TAB PO SCH (09:17)
--- NOTE | 2024-05-31 10:14 | DVHPN2 ---
Progress Note - Dictate Date Seen: May 31, 2024 Medical Necessity Reason Pt with a Central, PICC or Fol: Yes The following are medically ne: Mendosa Catheter Reason for mendosa catheter: Strict I&O Subjective Patient is clinically improving She is currently on room air using 1% nasal cannula as needed Patient is refusing breathing treatments as she is feeling better She is tolerating a diet Patient has an ejection fraction of 35%. She was being treated for CHF fluid overload with IV Bumex No active GI bleeding reported Hemoglobin stable at 9.8! She received 2 units PRBC on admission Stool for occult blood negative vital signs Vital Sign Date Time Temp Pulse Resp B/P (MAP) Pulse Ox O2 Delivery O2 Flow Rate FiO2 05/31/24 09:51 100 Nasal Cannula 1.0 05/31/24 09:51 24 05/31/24 09:17 158/73 05/31/24 08:55 98.6 69 20 98.6 Total Intake and Output 05/30/24 05/30/24 05/31/24 15:00 23:00 07:00 Intake Total 560 ml 450 ml Output Total 2100 ml 1900 ml Balance -1540 ml -1450 ml medications Current Medications Medications Dose Ordered Sig/Yesenia Route Start Time Stop Time Status Last Admin Dose Admin Hydralazine HCl 10 mg Q6HP PRN IV 05/24/24 01:15 05/24/24 19:02 10 MG Atorvastatin Calcium 20 mg HS PO 05/24/24 22:00 05/30/24 22:55 20 MG Diagnostic Test (Pha) 1 strip ACHS 05/24/24 07:00 05/31/24 06:53 1 STRIP Insulin Human Regular ACHS SC 05/24/24 07:00 05/30/24 23:16 3 UNITS Dextrose 50 ml UD PRN IV 05/24/24 01:15 Acetaminophen/ Hydrocodone Bitart 1 tab Q4HP PRN PO 05/24/24 01:15 05/28/24 07:01 1 TAB Ondansetron HCl 4 mg Q4HP PRN IV 05/24/24 01:15 05/24/24 20:44 4 MG Docusate Sodium 100 mg BIDPRN PRN PO 05/24/24 01:15 Acetaminophen 650 mg Q6HP PRN PO 05/24/24 01:15 05/25/24 20:51 650 MG Nitroglycerin 0.4 mg Q5MINP PRN SL 05/24/24 05:00 Morphine Sulfate 2 mg Q30M PRN IV 05/24/24 05:00 Empaglifozin 10 mg QAM PO 05/25/24 07:00 05/31/24 06:33 10 MG Pantoprazole Sodium 40 mg DAILY PO 05/25/24 10:00 05/31/24 09:16 40 MG Losartan Potassium 100 mg DAILY PO 05/25/24 10:00 05/31/24 09:16 100 MG Hydroxyzine HCl 10 mg Q6HP PRN PO 05/25/24 11:15 Dopamine HCl/ Dextrose 250 ml @ 6.608 mls/ hr Q24H IV 05/26/24 11:30 05/30/24 16:00 6.608 MLS/HR Albuterol 2.5 mg Q4HPRN PRN NEB 05/27/24 11:00 Cancel Albuterol 2.5 mg Q4HPRN PRN NEB 05/28/24 20:45 05/28/24 21:56 2.5 MG Guaifenesin/ Dextromethorphan 10 ml Q6HPRN PRN PO 05/28/24 23:45 05/29/24 02:11 10 ML Nystatin 1 applic BID TOP 05/30/24 22:00 05/31/24 09:17 1 APPLIC Bumetanide 1 mg DAILY PO 05/31/24 10:00 05/31/24 09:17 1 MG objective Mild distress; GENERAL:Abnormal, LUNGS:Abnormal, CVS:Abnormal laboratory and microbiology Laboratory Tests 05/31/24 05:32 Test 05/31/24 05:32 Range/Units Serum Glucose 104 74-106 mg/dL Problems(with codes): (1) Chronic kidney disease (2) Frequent nosebleeds (3) Anemia (4) Hyponatremia (5) Generalized weakness (6) Bilateral pleural effusion (7) Acute renal insufficiency (8) Hyperglycemia due to type 2 diabetes mellitus (9) CHF exacerbation Prognosis Plan Advance diet as tolerated Maintained on Protonix 40 mg p.o. daily DC aspirin NSAIDs and blood thinners if possible Patient could be having some blood loss intermittently from epistaxis, there was no evidence of active GI bleeding, stool for occult blood is negative Patient wants any further GI workup to be done as an outpatient Patient is requesting a discharge home as she has many personal issues to take care of Dietary Evaluation Review Comments: follow current diet, monitor intake to meet 75% of her needs Expected Outcomes/Goals: contolled DM, gradual weight loss, improved lab values Plan discussed with: Patient NEW MATTA MD May 31, 2024 10:14
--- NOTE | 2024-05-31 10:50 | DVHPN2 ---
Progress Note Date Seen: May 31, 2024 Medical Necessity Reason Pt with a Central, PICC or Fol: Yes The following are medically ne: Mendosa Catheter Reason for mendosa catheter: Strict I&O Subjective Patient reports: Feels better Objective vital signs Vital Sign Date Time Temp Pulse Resp B/P (MAP) Pulse Ox O2 Delivery O2 Flow Rate FiO2 05/31/24 09:51 100 Nasal Cannula 1.0 05/31/24 09:51 24 05/31/24 09:17 158/73 05/31/24 08:55 98.6 69 20 98.6 Total Intake and Output 05/30/24 05/30/24 05/31/24 15:00 23:00 07:00 Intake Total 560 ml 450 ml Output Total 2100 ml 1900 ml Balance -1540 ml -1450 ml medications Current Medications Medications Dose Ordered Sig/Yesenia Route Start Time Stop Time Status Last Admin Dose Admin Hydralazine HCl 10 mg Q6HP PRN IV 05/24/24 01:15 05/24/24 19:02 10 MG Atorvastatin Calcium 20 mg HS PO 05/24/24 22:00 05/30/24 22:55 20 MG Diagnostic Test (Pha) 1 strip ACHS 05/24/24 07:00 05/31/24 06:53 1 STRIP Insulin Human Regular ACHS SC 05/24/24 07:00 05/30/24 23:16 3 UNITS Dextrose 50 ml UD PRN IV 05/24/24 01:15 Acetaminophen/ Hydrocodone Bitart 1 tab Q4HP PRN PO 05/24/24 01:15 05/28/24 07:01 1 TAB Ondansetron HCl 4 mg Q4HP PRN IV 05/24/24 01:15 05/24/24 20:44 4 MG Docusate Sodium 100 mg BIDPRN PRN PO 05/24/24 01:15 Acetaminophen 650 mg Q6HP PRN PO 05/24/24 01:15 05/25/24 20:51 650 MG Nitroglycerin 0.4 mg Q5MINP PRN SL 05/24/24 05:00 Morphine Sulfate 2 mg Q30M PRN IV 05/24/24 05:00 Empaglifozin 10 mg QAM PO 05/25/24 07:00 05/31/24 06:33 10 MG Pantoprazole Sodium 40 mg DAILY PO 05/25/24 10:00 1/5/25 09:16 40 MG Losartan Potassium 100 mg DAILY PO 05/25/24 10:00 05/31/24 09:16 100 MG Hydroxyzine HCl 10 mg Q6HP PRN PO 05/25/24 11:15 Dopamine HCl/ Dextrose 250 ml @ 6.608 mls/ hr Q24H IV 05/26/24 11:30 05/30/24 16:00 6.608 MLS/HR Albuterol 2.5 mg Q4HPRN PRN NEB 05/27/24 11:00 Cancel Albuterol 2.5 mg Q4HPRN PRN NEB 05/28/24 20:45 05/28/24 21:56 2.5 MG Guaifenesin/ Dextromethorphan 10 ml Q6HPRN PRN PO 05/28/24 23:45 05/29/24 02:11 10 ML Nystatin 1 applic BID TOP 05/30/24 22:00 05/31/24 09:17 1 APPLIC Bumetanide 1 mg DAILY PO 05/31/24 10:00 05/31/24 09:17 1 MG Examination: GENERAL:Normal, CVS:Normal laboratory and microbiology Laboratory Tests 05/31/24 05:32 Test 05/31/24 05:32 Range/Units Serum Glucose 104 74-106 mg/dL Problem List/Assessment/Plan Problem List/Assessment/Plan Acute kidney injury ckd 3b Congestive heart failure exacerbation EF 30% COPD exacerbation Hyponatremia due to excess H2O Significant anemia status post packed red blood cell transfusion Iron deficiency anemia Hypertension Hyperglycemia rule out diabetes mellitus hypokalemia renal function responsive to diuretics, tapered dose , produced 4L UOp yesterday Mendosa catheter s/p IV iron Strict I&Os kidney ultrasound reported bilateral echogenic kidney albuterol treatment PRN Insulin sliding scale Fluid restrictions Plan discussed with: Patient My Orders My Orders Orders - TIM SALES MD Procedure Category Date Status Time Bumetanide Tablet PHA 05/31/24 In Process (Bumex Tablet) 10:00 Dietary Evaluation Review Comments: follow current diet, monitor intake to meet 75% of her needs Expected Outcomes/Goals: contolled DM, gradual weight loss, improved lab values TIM SALES MD May 31, 2024 10:50
[2024-05-31] MEDS: DOPamine 1600MCG/ML D5W 250 ML IV SCH (12:12)
--- NOTE | 2024-05-31 15:58 | DVHPN2 ---
Subjective Resolved itching and pain surrounding Staples's catheter after starting nystatin powder Reviewed: Care Plan, H&P, Labs, Medications, Previous Orders, Radiology, Other (Consultations) Changes from previous H/P or p: Changes Objective Vitals Vital Signs Date Time Temp Pulse Resp B/P (MAP) Pulse Ox O2 Delivery O2 Flow Rate FiO2 05/31/24 13:00 97.5 64 18 151/71 (97) 98 97.5 05/31/24 09:51 Nasal Cannula 1.0 05/31/24 09:51 24 Intake/Output Intake and Output 05/31/24 07:00 Intake Total 1010 ml Output Total 4000 ml Balance -2990 ml Intake Oral 810 ml IV Total 200 ml Output Urine Total 4000 ml Exam Button Breaker was female RN General Appearance: Alert, Oriented X3, Cooperative, No acute distress HEENT: Other (Pale) Lungs: Clear to auscultation, Normal air movement Cardiovascular: Regular rate, Normal S1, Normal S2 Abdomen: Normal bowel sounds, Soft, No tenderness Genitourinary: Other (Staples's) REHAB ASSISTANT: Other (Blanchable redness in valvular area surrounding Staples's with some scattered white spots) Neuro: Normal speech, Cranial nerves 3-12 NL Psych/Mental Status: Mental status NL, Mood NL Medications Current Medications Medications Dose Ordered Sig/Yesenia Route Start Time Stop Time Status Last Admin Dose Admin Hydralazine HCl 10 mg Q6HP PRN IV 05/24/24 01:15 05/24/24 19:02 10 MG Atorvastatin Calcium 20 mg HS PO 05/24/24 22:00 05/30/24 22:55 20 MG Diagnostic Test (Pha) 1 strip ACHS 05/24/24 07:00 05/31/24 11:30 1 STRIP Insulin Human Regular ACHS SC 05/24/24 07:00 05/31/24 11:31 4 UNITS Dextrose 50 ml UD PRN IV 05/24/24 01:15 Acetaminophen/ Hydrocodone Bitart 1 tab Q4HP PRN PO 05/24/24 01:15 05/28/24 07:01 1 TAB Ondansetron HCl 4 mg Q4HP PRN IV 05/24/24 01:15 05/24/24 20:44 4 MG Docusate Sodium 100 mg BIDPRN PRN PO 05/24/24 01:15 Acetaminophen 650 mg Q6HP PRN PO 05/24/24 01:15 05/25/24 20:51 650 MG Nitroglycerin 0.4 mg Q5MINP PRN SL 05/24/24 05:00 Morphine Sulfate 2 mg Q30M PRN IV 05/24/24 05:00 Empaglifozin 10 mg QAM PO 05/25/24 07:00 05/31/24 06:33 10 MG Pantoprazole Sodium 40 mg DAILY PO 05/25/24 10:00 05/31/24 09:16 40 MG Losartan Potassium 100 mg DAILY PO 05/25/24 10:00 05/31/24 09:16 100 MG Hydroxyzine HCl 10 mg Q6HP PRN PO 05/25/24 11:15 Albuterol 2.5 mg Q4HPRN PRN NEB 05/27/24 11:00 Cancel Albuterol 2.5 mg Q4HPRN PRN NEB 05/28/24 20:45 05/28/24 21:56 2.5 MG Guaifenesin/ Dextromethorphan 10 ml Q6HPRN PRN PO 05/28/24 23:45 05/29/24 02:11 10 ML Nystatin 1 applic BID TOP 05/30/24 22:00 05/31/24 09:17 1 APPLIC Bumetanide 1 mg DAILY PO 05/31/24 10:00 05/31/24 09:17 1 MG Dopamine HCl/ Dextrose 250 ml @ 5.91 mls/hr Q24H IV 05/31/24 12:15 05/31/24 12:12 5.91 MLS/HR Laboratory Results Laboratory Tests 05/31/24 05:32 Chemistry Test 05/31/24 05:32 Calcium Level 9.3 mg/dL (8.7-10.4) Magnesium Level 2.3 mg/dL (1.6-2.6) Urinalysis Test 05/25/24 13:15 Urine Color Yellow (Yellow) Urine Clarity Clear (Clear) Urine pH 6.0 (5.0-9.0) Urine Specific [place] 1.013 (1.001-1.035) Urine Protein 3+ (Negative) H Urine Ketones Negative (Negative) Urine Blood Negative /uL (Negative) Urine Nitrite Negative (Negative) Urine Bilirubin Negative (Negative) Urine Urobilinogen Normal mg/dL (Negative) Urine Leukocyte Esterase Negative /uL (Negative) Urine RBC 1 /hpf (0 - 4) Urine WBC 1 /hpf (0 - 5) Urine Squamous Epithelial Cells Few /hpf (<5) Urine Bacteria None seen /hpf (None Seen) Urine Osmolality 334 mOsm/kg Urine Creatinine 68.58 mg/dL (30.0-125.0) Urine Protein/Creatinine Ratio 9.16 Urine Sodium 22 mmol/L (40-220) L Urine Glucose 4+ mg/dL (Normal) H Urine Total Protein 628.3 mg/dL (1-14) H Labs and/or images reviewed: Labs reviewed by me, Image(s) reviewed by me Assessment/Plan Assessment/Plan Covering Dr. Rogers: #Severe anemia with melena due to GI bleed; received blood transfusion of 2 units of packed RBCs and IV iron; GI is following; continue current management at this time; unstable to proceed with colonoscopy at this time; continue monitoring #Acute hypoxic respiratory failure due to pulmonary congestion/edema secondary to acute on chronic diastolic/systolic heart failure; continue dopamine infusion as indicated; continue diuresis infusion; continue oxygen therapy as needed; continue monitoring #Acute on chronic diastolic/systolic heart failure; details and management as above; telemetry; continue dopamine infusion as indicated; continue monitoring #YOVANI and CKD 3B; most likely vasomotor nephropathy; received IV fluids; avoid nephrotoxic agents; strict input and output monitoring with Staples's catheter; followed by Nephrology; continue monitoring #Severe hyponatremia due to excess water as per Nephrology; asymptomatic; continue current medical management with slow correction; continue monitoring #Hypertensive heart disease with heart failure; continue antihypertensive medications as indicated; continue monitoring #Controlled diabetes mellitus type 2 with hyperglycemia and A1c of 5.5%; continue insulin sliding scale with hypoglycemia protocol; continue monitoring #Obesity; counseled the patient importance of adopting healthy lifestyle with diet and exercise in order to lose weight; continue monitoring #CAD; hold antiplatelets in the setting of GI bleed; continue rest of medical management of atorvastatin; continue monitoring #Suspected vulvar fungal rash; controlled with nystatin powder; continue monitoring 44 minutes of critical care time. Late Entry. This medical document was created using an electronic medical record system with computerized dictation system. Although this document has been carefully reviewed, there might still be some phonetic and typographical errors. These areas are purely typographical due to imperfections of the software programs, and do not reflect any compromise in the patient's medical care. Plan discussed with: Patient, Other (Nurse) My Orders Orders - ALFONSO MATTHEW MD Procedure Category Date Status Time Dopamine 1600mcg/Ml PHA 05/31/24 In Process D5W 12:15 Date of Service: May 31, 2024 Billing Provider: ALFONSO MATTHEW MD Common Visit Codes: [id number] CARE 30-74 MIN (44 minutes) ALFONSO MATTHEW MD May 31, 2024 15:58
[2024-06-01] VITALS (9 sets, daily range): BP systolic 148–164; BP diastolic 55–73; PULSE 75–84; RESP 17–19; TEMP 97.8–98.4; O2SAT 94–98
--- NOTE | 2024-06-01 11:01 | DVHPN2 ---
Progress Note Date Seen: Jun 01, 2024 Medical Necessity Reason Pt with a Central, PICC or Fol: No Subjective Patient reports: No new complaints Review of Systems: HEENT:Normal, CVS:Normal, RESPIRATORY:Normal, GI:Normal, :Normal, MSK:Normal, NEURO:Normal Objective vital signs Vital Sign Date Time Temp Pulse Resp B/P (MAP) Pulse Ox O2 Delivery O2 Flow Rate FiO2 06/01/24 10:00 97 Room Air* 0 21 06/01/24 09:33 164/63 06/01/24 08:31 97.8 80 18 97.8 Total Intake and Output 05/31/24 05/31/24 06/01/24 15:00 23:00 07:00 Intake Total 660 ml 550 ml Output Total 1860 ml 2050 ml Balance -1200 ml -1500 ml medications Current Medications Medications Dose Ordered Sig/Yesenia Route Start Time Stop Time Status Last Admin Dose Admin Hydralazine HCl 10 mg Q6HP PRN IV 05/24/24 01:15 05/24/24 19:02 10 MG Atorvastatin Calcium 20 mg HS PO 05/24/24 22:00 05/31/24 22:54 20 MG Diagnostic Test (Pha) 1 strip ACHS 05/24/24 07:00 06/01/24 06:21 1 STRIP Insulin Human Regular ACHS SC 05/24/24 07:00 05/31/24 22:52 2 UNITS Dextrose 50 ml UD PRN IV 05/24/24 01:15 Acetaminophen/ Hydrocodone Bitart 1 tab Q4HP PRN PO 05/24/24 01:15 05/28/24 07:01 1 TAB Ondansetron HCl 4 mg Q4HP PRN IV 05/24/24 01:15 05/24/24 20:44 4 MG Docusate Sodium 100 mg BIDPRN PRN PO 05/24/24 01:15 Acetaminophen 650 mg Q6HP PRN PO 05/24/24 01:15 05/25/24 20:51 650 MG Nitroglycerin 0.4 mg Q5MINP PRN SL 05/24/24 05:00 Morphine Sulfate 2 mg Q30M PRN IV 05/24/24 05:00 Empaglifozin 10 mg QAM PO 05/25/24 07:00 06/01/24 06:19 10 MG Pantoprazole Sodium 40 mg DAILY PO 05/25/24 10:00 06/01/24 09:33 40 MG Losartan Potassium 100 mg DAILY PO 05/25/24 10:00 06/01/24 09:33 100 MG Hydroxyzine HCl 10 mg Q6HP PRN PO 05/25/24 11:15 Albuterol 2.5 mg Q4HPRN PRN NEB 05/27/24 11:00 Cancel Albuterol 2.5 mg Q4HPRN PRN NEB 05/28/24 20:45 05/28/24 21:56 2.5 MG Guaifenesin/ Dextromethorphan 10 ml Q6HPRN PRN PO 05/28/24 23:45 05/29/24 02:11 10 ML Nystatin 1 applic BID TOP 05/30/24 22:00 06/01/24 09:33 1 APPLIC Bumetanide 1 mg DAILY PO 05/31/24 10:00 06/01/24 09:33 1 MG Examination: GENERAL:Normal, HEENT:Normal, NECK:Normal, LUNGS:Normal, CVS:Normal, ABDOMEN:Normal, MSK:Normal, SKIN:Normal, NEURO:Normal, :Normal laboratory and microbiology Laboratory Tests 05/31/24 05:32 Test 05/31/24 05:32 Range/Units Serum Glucose 104 74-106 mg/dL Problem List/Assessment/Plan Problem List/Assessment/Plan #1 severe anemia: transfuse, colonoscopy when stable #2 acute on chronic diastolic/systolic heart failure: bumex #3 dm: ssi #4 htn #5 ckd stage 3b #6 skin rash #7 cad #8 hyponatremia #9 acute resp failure advance care planning-full code- time spent 19 mins Plan discussed with: Patient My Orders My Orders Orders - KERA BOLTON MD Procedure Category Date Status Time Basic Metabolic Panel LAB 06/02/24 Verified 06:00 * Acquisition Consultant CONS 06/01/24 Transmitted Consult Discontinue Tele ASIF 06/01/24 Verified 11:00 Transfer Orders XFER 06/01/24 Verified 11:00 Dietary Evaluation Review Comments: follow current diet, monitor intake to meet 75% of her needs Expected Outcomes/Goals: contolled DM, gradual weight loss, improved lab values Date of Service: Jun 01, 2024 Billing Provider: KERA BOLTON MD Common Visit Codes: [id number] INP/OBS CARE(HIGH) KERA BOLTON MD Jun 01, 2024 11:01
--- NOTE | 2024-06-01 14:06 | DVHPN2 ---
Progress Note Date Seen: Jun 01, 2024 Resident Creating Document: TIM MACIAS RESIDENT Medical Necessity Reason Pt with a Central, PICC or Fol: No Medical Necessity Reason stable from GI stand point Subjective Review of Systems Patient is seen and examined today. She is doing much better and looks alot better. She is off oxygen. She has stable scratches on her legs and has been advised to follow up with the cash application representative. She has not had any major complaint. Patient again insisted that she would like to have her colonoscopy down outpatient. Objective vital signs Vital Sign Date Time Temp Pulse Resp B/P (MAP) Pulse Ox O2 Delivery O2 Flow Rate FiO2 06/01/24 13:00 97.8 83 18 150/73 (98) 98 97.8 06/01/24 10:00 Room Air* 0 21 Total Intake and Output 05/31/24 05/31/24 06/01/24 15:00 23:00 07:00 Intake Total 660 ml 550 ml Output Total 1860 ml 2050 ml Balance -1200 ml -1500 ml medications Current Medications Medications Dose Ordered Sig/Yesenia Route Start Time Stop Time Status Last Admin Dose Admin Hydralazine HCl 10 mg Q6HP PRN IV 05/24/24 01:15 05/24/24 19:02 10 MG Atorvastatin Calcium 20 mg HS PO 05/24/24 22:00 05/31/24 22:54 20 MG Diagnostic Test (Pha) 1 strip ACHS 05/24/24 07:00 06/01/24 11:20 1 STRIP Insulin Human Regular ACHS SC 05/24/24 07:00 06/01/24 11:20 3 UNITS Dextrose 50 ml UD PRN IV 05/24/24 01:15 Acetaminophen/ Hydrocodone Bitart 1 tab Q4HP PRN PO 05/24/24 01:15 05/28/24 07:01 1 TAB Ondansetron HCl 4 mg Q4HP PRN IV 05/24/24 01:15 05/24/24 20:44 4 MG Docusate Sodium 100 mg BIDPRN PRN PO 05/24/24 01:15 Acetaminophen 650 mg Q6HP PRN PO 05/24/24 01:15 05/25/24 20:51 650 MG Nitroglycerin 0.4 mg Q5MINP PRN SL 05/24/24 05:00 Morphine Sulfate 2 mg Q30M PRN IV 05/24/24 05:00 Empaglifozin 10 mg QAM PO 05/25/24 07:00 06/01/24 06:19 10 MG Pantoprazole Sodium 40 mg DAILY PO 05/25/24 10:00 06/01/24 09:33 40 MG Losartan Potassium 100 mg DAILY PO 05/25/24 10:00 06/01/24 09:33 100 MG Albuterol 2.5 mg Q4HPRN PRN NEB 05/27/24 11:00 Cancel Guaifenesin/ Dextromethorphan 10 ml Q6HPRN PRN PO 05/28/24 23:45 05/29/24 02:11 10 ML Nystatin 1 applic BID TOP 05/30/24 22:00 06/01/24 09:33 1 APPLIC Bumetanide 1 mg DAILY PO 05/31/24 10:00 06/01/24 09:33 1 MG Examination General examination- Not in acute distress HEENT: PEERLA, no acute nasal discharge Chest: S1-S2 audible, rate and rhythm regular, no murmur Lung: CTAB, no wheeze or rhonchi Abdomen: Nondistend, BS+, nontenderness, no organomegaly Musculoskeletal: no acute joint swelling or tenderness Lower extremity: no leg edema, scratches/rashes on her legs bilateral Neurological: cranial nerves intact, no acute dysarthria or dysphagia Psychiatry-- Normal mood and affect Skin- no acute rash or purpura laboratory and microbiology Laboratory Tests 05/31/24 05:32 Test 05/31/24 05:32 Range/Units Serum Glucose 104 74-106 mg/dL Problem List/Assessment/Plan Problem List/Assessment/Plan Acute on chronic severe microcytic/hypochromic anemia -initial hemoglobin was 5.4 which required 2 units of RBCs transfusion -patient was initiated on IV iron, -ordered iron panel and ferritin -monitor hemoglobin and hematocrit -patient has chronic history of epistaxis: None note so far -patient reported dark red blood in the stools likely related to constipation -->resume diet --> Will continue to follow closely, once stable, will attempt the colonoscopy again --> Stool occult blood: Negative --> HGB stable at 8.7 --> She prefers outpatient colonoscopy; Advised to followup at the GI clinic Possible upper vs lower GI bleed --> EGD was performed on 10/04/2023 showing gastritis with few gastric erosions, grade a erosive esophagitis and 2nd and 3rd part of duodenum had no active bleeding at that time. -patient reported dark red blood in the stools that was grossly visible Acute on chronic systolic heart failure exacerbation (HFrEF 30%) -last echocardiogram was performed on 04/10/2024 showing an LVEF of 35% with mild to moderate mitral regurgitation. -BNP was 3028 - IV furosemide 40 mg daily STOPPED; metoprolol tartrate 50 mg b.i.d., empagliflozin 10 mg q.a.m. and rest of directed medical therapy per hospitalist. --> Repeat chest x-ray: Cardiomegaly. Mild pulmonary vascular congestion --> IV bumex started 05/26/2024 Acute hypoxic respiratory failure likely due to CHF exacerbation -continue management as described above per hospitalist --> Start 2L of oxygen if SpO2 is less than 94 Acute on Chronic kidney disease stage V, likely prerenal vasomotor mediated due to CHF -last creatinine was 1.91, BUN 24 -GFR 28--> 24 -nephrology on board Moderate hyponatremia -->last sodium levels was 123 -->monitor sodium levels and electrolytes per hospitalist Hyperlipidemia -->atorvastatin 20 mg q.d. Type 2 diabetes mellitus -sliding scale insulin, managed per hospitalist Primary hypertension -on losartan 100 mg daily, hydralazine 100 mg b.i.d., metoprolol tartrate 50 mg b.i.d. -monitor blood pressure Code status: Full Overall, patient is stable and should follow with GI clinic post discharge Goals of care discussed for more than 20 minutes Case and plan discussed with Dr. Domínguez Thank you for allowing us to participate in the care of this patient. Please call if you have any questions or concerns. Plan discussed with: Patient Dietary Evaluation Review Comments: follow current diet, monitor intake to meet 75% of her needs Expected Outcomes/Goals: contolled DM, gradual weight loss, improved lab values TIM MACIAS RESIDENT Jun 01, 2024 14:06
--- NOTE | 2024-06-01 17:06 | DVHPN2 ---
Progress Note Date Seen: Jun 01, 2024 Medical Necessity Reason Pt with a Central, PICC or Fol: No Subjective Patient reports: No new complaints, Feels better Review of Systems: HEENT:Normal, CVS:Normal, RESPIRATORY:Normal, GI:Normal, :Normal, MSK:Abnormal, NEURO:Normal Objective vital signs Vital Sign Date Time Temp Pulse Resp B/P (MAP) Pulse Ox O2 Delivery O2 Flow Rate FiO2 06/01/24 16:39 164/70 06/01/24 16:30 98.2 75 18 98 98.2 06/01/24 10:00 Room Air* 0 21 Total Intake and Output 05/31/24 05/31/24 06/01/24 15:00 23:00 07:00 Intake Total 660 ml 550 ml Output Total 1860 ml 2050 ml Balance -1200 ml -1500 ml medications Current Medications Medications Dose Ordered Sig/Yesenia Route Start Time Stop Time Status Last Admin Dose Admin Hydralazine HCl 10 mg Q6HP PRN IV 05/24/24 01:15 06/01/24 16:39 10 MG Atorvastatin Calcium 20 mg HS PO 05/24/24 22:00 05/31/24 22:54 20 MG Diagnostic Test (Pha) 1 strip ACHS 05/24/24 07:00 06/01/24 16:54 1 STRIP Insulin Human Regular ACHS SC 05/24/24 07:00 06/01/24 16:59 2 UNITS Dextrose 50 ml UD PRN IV 05/24/24 01:15 Acetaminophen/ Hydrocodone Bitart 1 tab Q4HP PRN PO 05/24/24 01:15 05/28/24 07:01 1 TAB Ondansetron HCl 4 mg Q4HP PRN IV 05/24/24 01:15 05/24/24 20:44 4 MG Docusate Sodium 100 mg BIDPRN PRN PO 05/24/24 01:15 Acetaminophen 650 mg Q6HP PRN PO 05/24/24 01:15 05/25/24 20:51 650 MG Nitroglycerin 0.4 mg Q5MINP PRN SL 05/24/24 05:00 Morphine Sulfate 2 mg Q30M PRN IV 05/24/24 05:00 Empaglifozin 10 mg QAM PO 05/25/24 07:00 06/01/24 06:19 10 MG Pantoprazole Sodium 40 mg DAILY PO 05/25/24 10:00 06/01/24 09:33 40 MG Losartan Potassium 100 mg DAILY PO 05/25/24 10:00 06/01/24 09:33 100 MG Albuterol 2.5 mg Q4HPRN PRN NEB 05/27/24 11:00 Cancel Guaifenesin/ Dextromethorphan 10 ml Q6HPRN PRN PO 05/28/24 23:45 05/29/24 02:11 10 ML Nystatin 1 applic BID TOP 05/30/24 22:00 06/01/24 09:33 1 APPLIC Examination: GENERAL:Normal, HEENT:Normal, NECK:Normal, LUNGS:Normal, CVS:Normal, ABDOMEN:Normal, MSK:Abnormal, SKIN:Abnormal, NEURO:Normal, :Normal laboratory and microbiology Laboratory Tests 05/31/24 05:32 Test 05/31/24 05:32 Range/Units Serum Glucose 104 74-106 mg/dL Problem List/Assessment/Plan Problem List/Assessment/Plan Acute kidney injury ckd 3b Congestive heart failure exacerbation EF 30% COPD exacerbation Hyponatremia Significant anemia status post packed red blood cell transfusion Iron deficiency anemia Hypertension Hyperglycemia rule out diabetes mellitus hypokalemia recs lasix po daily check uric acid Plan discussed with: Patient My Orders My Orders Orders - CARRINGTON ESTES MD Procedure Category Date Status Time Uric Acid LAB 06/02/24 Verified 04:00 Furosemide Tablet PHA 06/02/24 Logged (Lasix Tablet) 10:00 Dietary Evaluation Review Comments: follow current diet, monitor intake to meet 75% of her needs Expected Outcomes/Goals: contolled DM, gradual weight loss, improved lab values CARRINGTON ESTES MD Jun 01, 2024 17:05
[2024-06-02] VITALS (9 sets, daily range): BP systolic 133–164; BP diastolic 48–65; PULSE 72–81; RESP 16–20; TEMP 97.8–98.1; O2SAT 96–100
[2024-06-02 07:14] LABS: Anion Gap 8 (5-15); Carbon Dioxide 23 mmol/L (20-31)
[2024-06-02 07:19] LABS: Chloride 91 mmol/L (98-107); Sodium 122 mmol/L (136-145)
[2024-06-02 07:20] LABS: BUN/Creatinine Ratio 11.4 (10.0-20.0); Blood Urea Nitrogen 21 mg/dL (9-23); Glucose 81 mg/dL (74-106)
[2024-06-02] MEDS: FUROSEMIDE 40 MG TAB PO SCH (09:51)
--- NOTE | 2024-06-02 13:06 | DVHPN2 ---
Progress Note Date Seen: Jun 02, 2024 Medical Necessity Reason Pt with a Central, PICC or Fol: No Subjective Patient reports: No new complaints Review of Systems: HEENT:Normal, CVS:Normal, RESPIRATORY:Normal, GI:Normal, :Normal, MSK:Normal, NEURO:Normal Objective vital signs Vital Sign Date Time Temp Pulse Resp B/P (MAP) Pulse Ox O2 Delivery O2 Flow Rate FiO2 06/02/24 10:00 97 Room Air* 0 21 06/02/24 09:51 136/48 06/02/24 08:56 98.1 78 16 98.1 Total Intake and Output 06/01/24 06/01/24 06/02/24 15:00 23:00 07:00 Intake Total 450 ml 300 ml Output Total 1900 ml 400 ml Balance -1450 ml -100 ml medications Current Medications Medications Dose Ordered Sig/Yesenia Route Start Time Stop Time Status Last Admin Dose Admin Hydralazine HCl 10 mg Q6HP PRN IV 05/24/24 01:15 06/02/24 05:54 10 MG Atorvastatin Calcium 20 mg HS PO 05/24/24 22:00 06/01/24 21:23 20 MG Diagnostic Test (Pha) 1 strip ACHS 05/24/24 07:00 06/02/24 11:57 1 STRIP Insulin Human Regular ACHS SC 05/24/24 07:00 06/01/24 21:37 2 UNITS Dextrose 50 ml UD PRN IV 05/24/24 01:15 Ondansetron HCl 4 mg Q4HP PRN IV 05/24/24 01:15 05/24/24 20:44 4 MG Docusate Sodium 100 mg BIDPRN PRN PO 05/24/24 01:15 Acetaminophen 650 mg Q6HP PRN PO 05/24/24 01:15 05/25/24 20:51 650 MG Nitroglycerin 0.4 mg Q5MINP PRN SL 05/24/24 05:00 Empaglifozin 10 mg QAM PO 05/25/24 07:00 06/02/24 05:41 10 MG Pantoprazole Sodium 40 mg DAILY PO 05/25/24 10:00 06/02/24 09:51 40 MG Losartan Potassium 100 mg DAILY PO 05/25/24 10:00 06/02/24 09:51 100 MG Albuterol 2.5 mg Q4HPRN PRN NEB 05/27/24 11:00 Cancel Guaifenesin/ Dextromethorphan 10 ml Q6HPRN PRN PO 05/28/24 23:45 05/29/24 02:11 10 ML Nystatin 1 applic BID TOP 05/30/24 22:00 06/01/24 09:33 1 APPLIC Furosemide 40 mg DAILY PO 06/02/24 10:00 06/02/24 09:51 40 MG Examination: GENERAL:Normal, HEENT:Normal, NECK:Normal, LUNGS:Normal, CVS:Normal, ABDOMEN:Normal, MSK:Normal, SKIN:Normal, NEURO:Normal, :Normal laboratory and microbiology Laboratory Tests 06/02/24 05:34 05/31/24 05:32 Test 06/02/24 05:34 Range/Units Serum Glucose 81 74-106 mg/dL Problem List/Assessment/Plan Problem List/Assessment/Plan #1 severe anemia: transfuse, colonoscopy when stable- outpt #2 acute on chronic diastolic/systolic heart failure: lasix #3 dm: ssi #4 htn #5 ckd stage 3b #6 skin rash #7 cad #8 hyponatremia #9 acute resp failure advance care planning-full code- time spent 19 mins Plan discussed with: Patient My Orders My Orders Orders - KERA BOLTON MD Procedure Category Date Status Time Basic Metabolic Panel LAB 06/03/24 Verified 06:00 Dietary Evaluation Review Comments: follow current diet, monitor intake to meet 75% of her needs Expected Outcomes/Goals: contolled DM, gradual weight loss, improved lab values Date of Service: Jun 02, 2024 Billing Provider: KERA BOLTON MD Common Visit Codes: [id number] INP/OBS CARE(HIGH) KERA BOLTON MD Jun 02, 2024 13:06
[2024-06-02] MEDS ORDERED: SODIUM CHL 3% 250 ML IV ONE (16:45)
--- NOTE | 2024-06-02 16:53 | DVHPN2 ---
Progress Note Date Seen: Jun 02, 2024 Medical Necessity Reason Pt with a Central, PICC or Fol: No Subjective Patient reports: No new complaints, Feels better Review of Systems: Deferred Objective vital signs Vital Sign Date Time Temp Pulse Resp B/P (MAP) Pulse Ox O2 Delivery O2 Flow Rate FiO2 06/02/24 16:32 97.8 80 18 135/64 (87) 99 97.8 06/02/24 10:00 Room Air* 0 21 Total Intake and Output 06/01/24 06/01/24 06/02/24 15:00 23:00 07:00 Intake Total 450 ml 300 ml Output Total 1900 ml 400 ml Balance -1450 ml -100 ml medications Current Medications Medications Dose Ordered Sig/Yesenia Route Start Time Stop Time Status Last Admin Dose Admin Hydralazine HCl 10 mg Q6HP PRN IV 05/24/24 01:15 06/02/24 05:54 10 MG Atorvastatin Calcium 20 mg HS PO 05/24/24 22:00 06/01/24 21:23 20 MG Diagnostic Test (Pha) 1 strip ACHS 05/24/24 07:00 06/02/24 11:57 1 STRIP Insulin Human Regular ACHS SC 05/24/24 07:00 06/01/24 21:37 2 UNITS Dextrose 50 ml UD PRN IV 05/24/24 01:15 Ondansetron HCl 4 mg Q4HP PRN IV 05/24/24 01:15 05/24/24 20:44 4 MG Docusate Sodium 100 mg BIDPRN PRN PO 05/24/24 01:15 Acetaminophen 650 mg Q6HP PRN PO 05/24/24 01:15 05/25/24 20:51 650 MG Nitroglycerin 0.4 mg Q5MINP PRN SL 05/24/24 05:00 Empaglifozin 10 mg QAM PO 05/25/24 07:00 06/02/24 05:41 10 MG Pantoprazole Sodium 40 mg DAILY PO 05/25/24 10:00 06/02/24 09:51 40 MG Losartan Potassium 100 mg DAILY PO 05/25/24 10:00 06/02/24 09:51 100 MG Albuterol 2.5 mg Q4HPRN PRN NEB 05/27/24 11:00 Cancel Guaifenesin/ Dextromethorphan 10 ml Q6HPRN PRN PO 05/28/24 23:45 05/29/24 02:11 10 ML Nystatin 1 applic BID TOP 05/30/24 22:00 06/01/24 09:33 1 APPLIC Furosemide 40 mg DAILY PO 06/02/24 10:00 06/02/24 09:51 40 MG Urea 15 gm BID PO 06/02/24 22:00 UNV Urea 15 gm ONCE PO 06/02/24 17:00 UNV Examination: MSK:Abnormal, SKIN:Abnormal laboratory and microbiology Laboratory Tests 06/02/24 05:34 05/31/24 05:32 Test 06/02/24 05:34 Range/Units Serum Glucose 81 74-106 mg/dL Problem List/Assessment/Plan Problem List/Assessment/Plan Acute kidney injury ckd 3b Congestive heart failure exacerbation EF 30% COPD exacerbation Hyponatremia Significant anemia status post packed red blood cell transfusion Iron deficiency anemia Hypertension Hyperglycemia rule out diabetes mellitus hypokalemia recs trial of [place] lasix po daily check uric acid,serum osm,u osm and [place] Plan discussed with: Patient My Orders My Orders Orders - CARRINGTON ESTES MD Procedure Category Date Status Time Furosemide Tablet PHA 06/02/24 In Process (Lasix Tablet) 10:00 Osmolality, Serum LAB 06/03/24 Verified 04:00 Osmolality Urine LAB 06/02/24 Logged 16:31 Urine Sodium LAB 06/02/24 Logged 16:31 [place] Lambda Lite LAB 06/03/24 Verified Chain Free S 04:00 Urea (Ure-Na) PHA 06/02/24 Logged 22:00 Urea (Ure-Na) PHA 06/02/24 Logged 17:00 Dietary Evaluation Review Comments: follow current diet, monitor intake to meet 75% of her needs Expected Outcomes/Goals: contolled DM, gradual weight loss, improved lab values CARRINGTON ESTES MD Jun 02, 2024 16:52
--- NOTE | 2024-06-02 16:56 | DVHPN2 ---
Progress Note Date Seen: Jun 02, 2024 Resident Creating Document: TIM MACIAS RESIDENT Medical Necessity Reason Pt with a Central, PICC or Fol: No Medical Necessity Reason Hyponatremia : Na 122 Subjective Review of Systems Patient is seen and examined. Not in any acute respiratory distress. However patient's lab today revealed very low sodium ( Na) 122. Therefore patient is kept overnight for electrolyte correction prior to discharge. The patient has no new complaints. Will monitor labs closely. Objective vital signs Vital Sign Date Time Temp Pulse Resp B/P (MAP) Pulse Ox O2 Delivery O2 Flow Rate FiO2 06/02/24 16:32 97.8 80 18 135/64 (87) 99 97.8 06/02/24 10:00 Room Air* 0 21 Total Intake and Output 06/01/24 06/01/24 06/02/24 15:00 23:00 07:00 Intake Total 450 ml 300 ml Output Total 1900 ml 400 ml Balance -1450 ml -100 ml medications Current Medications Medications Dose Ordered Sig/Yesenia Route Start Time Stop Time Status Last Admin Dose Admin Hydralazine HCl 10 mg Q6HP PRN IV 05/24/24 01:15 06/02/24 05:54 10 MG Atorvastatin Calcium 20 mg HS PO 05/24/24 22:00 06/01/24 21:23 20 MG Diagnostic Test (Pha) 1 strip ACHS 05/24/24 07:00 06/02/24 11:57 1 STRIP Insulin Human Regular ACHS SC 05/24/24 07:00 06/01/24 21:37 2 UNITS Dextrose 50 ml UD PRN IV 05/24/24 01:15 Ondansetron HCl 4 mg Q4HP PRN IV 05/24/24 01:15 05/24/24 20:44 4 MG Docusate Sodium 100 mg BIDPRN PRN PO 05/24/24 01:15 Acetaminophen 650 mg Q6HP PRN PO 05/24/24 01:15 05/25/24 20:51 650 MG Nitroglycerin 0.4 mg Q5MINP PRN SL 05/24/24 05:00 Empaglifozin 10 mg QAM PO 05/25/24 07:00 06/02/24 05:41 10 MG Pantoprazole Sodium 40 mg DAILY PO 05/25/24 10:00 06/02/24 09:51 40 MG Losartan Potassium 100 mg DAILY PO 05/25/24 10:00 06/02/24 09:51 100 MG Albuterol 2.5 mg Q4HPRN PRN NEB 05/27/24 11:00 Cancel Guaifenesin/ Dextromethorphan 10 ml Q6HPRN PRN PO 05/28/24 23:45 05/29/24 02:11 10 ML Nystatin 1 applic BID TOP 05/30/24 22:00 06/01/24 09:33 1 APPLIC Furosemide 40 mg DAILY PO 06/02/24 10:00 06/02/24 09:51 40 MG Urea 15 gm BID PO 06/02/24 22:00 UNV Urea 15 gm ONCE PO 06/02/24 17:00 UNV Examination General examination- Not in acute distress HEENT: PEERLA, no acute nasal discharge Chest: S1-S2 audible, rate and rhythm regular, no murmur Lung: CTAB, no wheeze or rhonchi Abdomen: Nondistend, BS+, nontenderness, no organomegaly Musculoskeletal: no acute joint swelling or tenderness Lower extremity: no leg edema, scratches/rashes on her legs bilateral Neurological: cranial nerves intact, no acute dysarthria or dysphagia Psychiatry-- Normal mood and affect Skin- no acute rash or purpura laboratory and microbiology Laboratory Tests 06/02/24 05:34 05/31/24 05:32 Test 06/02/24 05:34 Range/Units Serum Glucose 81 74-106 mg/dL Problem List/Assessment/Plan Problem List/Assessment/Plan Acute on chronic severe microcytic/hypochromic anemia -initial hemoglobin was 5.4 which required 2 units of RBCs transfusion -patient was initiated on IV iron, -ordered iron panel and ferritin -monitor hemoglobin and hematocrit -patient has chronic history of epistaxis: None note so far -patient reported dark red blood in the stools likely related to constipation -->resume diet --> Will continue to follow closely, once stable, will attempt the colonoscopy again --> Stool occult blood: Negative --> HGB stable at 8.7 --> She prefers outpatient colonoscopy; Advised to followup at the GI clinic Possible upper vs lower GI bleed --> EGD was performed on 10/04/2023 showing gastritis with few gastric erosions, grade a erosive esophagitis and 2nd and 3rd part of duodenum had no active bleeding at that time. -patient reported dark red blood in the stools that was grossly visible Acute on chronic systolic heart failure exacerbation (HFrEF 30%) -last echocardiogram was performed on 04/10/2024 showing an LVEF of 35% with mild to moderate mitral regurgitation. -BNP was 3028 - IV furosemide 40 mg daily STOPPED; metoprolol tartrate 50 mg b.i.d., empagliflozin 10 mg q.a.m. and rest of directed medical therapy per hospitalist. --> Repeat chest x-ray: Cardiomegaly. Mild pulmonary vascular congestion --> IV bumex started 05/26/2024 Acute hypoxic respiratory failure likely due to CHF exacerbation -continue management as described above per hospitalist --> Start 2L of oxygen if SpO2 is less than 94 Acute on Chronic kidney disease stage V, likely prerenal vasomotor mediated due to CHF -last creatinine was 1.91, BUN 24 -GFR 28--> 24 -nephrology on board Moderate hyponatremia -->last sodium levels was 123 -->monitor sodium levels and electrolytes per hospitalist Hyperlipidemia -->atorvastatin 20 mg q.d. Type 2 diabetes mellitus -sliding scale insulin, managed per hospitalist Primary hypertension -on losartan 100 mg daily, hydralazine 100 mg b.i.d., metoprolol tartrate 50 mg b.i.d. -monitor blood pressure Hyponatremia 06/02/2023 --> Na:122 --> fluid restriction Code status: Full Overall, patient is stable and should follow with GI clinic post discharge Goals of care discussed for more than 20 minutes Case and plan discussed with Dr. Domínguez Thank you for allowing us to participate in the care of this patient. Please call if you have any questions or concerns. Plan discussed with: Patient Dietary Evaluation Review Comments: follow current diet, monitor intake to meet 75% of her needs Expected Outcomes/Goals: contolled DM, gradual weight loss, improved lab values TIM MACIAS RESIDENT Jun 02, 2024 16:56
[2024-06-02] MEDS: UREA 15gm PO Powder PKG PO ONE (17:00)
[2024-06-02] MEDS: UREA 15gm PO Powder PKG PO SCH (21:56)
[2024-06-03] VITALS (8 sets, daily range): BP systolic 99–152; BP diastolic 44–73; PULSE 69–84; RESP 17–19; TEMP 36.3; O2SAT 96–99
[2024-06-03 06:17] LABS: Anion Gap 7 (5-15); Carbon Dioxide 26 mmol/L (20-31); Potassium 3.5 mmol/L (3.5-5.1)
[2024-06-03 06:19] LABS: Calcium 9.4 mg/dL (8.7-10.4)
[2024-06-03 06:20] LABS: Chloride 90 mmol/L (98-107); Sodium 123 mmol/L (136-145)
[2024-06-03 06:24] LABS: BUN/Creatinine Ratio 23.8 (10.0-20.0); Glucose 105 mg/dL (74-106)
[2024-06-03 06:28] LABS: Blood Urea Nitrogen 46 mg/dL (9-23)
[2024-06-03] MEDS ORDERED: LOSA-535 PO (14:25)
[2024-06-03] MEDS ORDERED: PANT40T PO (14:25)
[2024-06-03] MEDS ORDERED: ATOR20TA50 PO (14:25)
[2024-06-03] MEDS ORDERED: METO-6 PO (14:25)
[2024-06-03] MEDS ORDERED: FURO1TAB31 PO (14:25)
[2024-06-03] MEDS ORDERED: EMPA1TAB PO (14:25)
--- NOTE | 2024-06-03 14:27 | DVHDS2 ---
Discharge Summary Date of Admission May 24, 2024 at 04:55 Date of Discharge: Jun 03, 2024 Labs/Diagnostic Data: Laboratory Results Test 06/03/24 05:23 06/02/24 05:34 05/31/24 05:32 05/30/24 07:01 Sodium Level 123 mmol/L (136-145) Potassium Level 3.5 mmol/L (3.5-5.1) Chloride Level 90 mmol/L (98-107) Carbon Dioxide Level 26 mmol/L (20-31) Anion Gap 7 (5-15) Blood Urea Nitrogen 46 mg/dL (9-23) Creatinine 1.93 mg/dL (0.550-1.02) Glomerular Filtration Rate Calc 28 mL/min (>90) BUN/Creatinine Ratio 23.8 (10.0-20.0) Serum Glucose 105 mg/dL (74-106) Serum Osmolality 266 mOsm/kg (278-298) Calcium Level 9.4 mg/dL (8.7-10.4) Uric Acid 5.7 mg/dL (3.1-7.8) White Blood Count 8.5 10^3/uL (4.4-10.8) Red Blood Count 4.25 10^6/uL (4.0-5.20) Hemoglobin 9.8 g/dL (12.2-16.2) Hematocrit 30.1 % (36.0-46.0) Mean Corpuscular Volume 70.8 fL (80.0-100.0) Mean Corpuscular Hemoglobin 23.2 pg (28.0-32.0) Mean Corpuscular Hemoglobin Concent 32.7 g/dL (32.0-36.0) Red Cell Distribution Width 27.3 % (11.8-14.3) Platelet Count 393 10^3/uL (140-450) Mean Platelet Volume 6.0 fL (6.9-10.8) Neutrophils (%) (Auto) 80.0 % (37.0-80.0) Lymphocytes (%) (Auto) 9.7 % (10.0-50.0) Monocytes (%) (Auto) 7.6 % (0.0-12.0) Eosinophils (%) (Auto) 1.7 % (0.0-7.0) Basophils (%) (Auto) 1.0 % (0.0-2.0) Neutrophils # (Auto) 6.8 10 ^3/uL (1.6-8.6) Lymphocytes # (Auto) 0.8 10 ^3/uL (0.4-5.4) Monocytes # (Auto) 0.6 10 ^3/uL (0-1.3) Eosinophils # (Auto) 0.1 10 ^3/uL (0-0.8) Basophils # (Auto) 0.1 10 ^3/uL (0-0.2) Nucleated Red Blood Cells 0.0 % Platelet Estimate Adequate Hypochromasia (manual) Moderate Anisocytosis (manual) Moderate Microcytosis Moderate Ovalocytes Few Magnesium Level 2.3 mg/dL (1.6-2.6) Schistocytes Few Total Bilirubin 0.6 mg/dL (0.2-1.0) Aspartate Amino Transferase (AST) 20 U/L (13-40) Alanine Aminotransferase (ALT) 14 U/L (7-40) Alkaline Phosphatase 122 U/L (46-116) Total Protein 5.2 g/dL (5.7-8.2) Albumin 3.1 g/dL (3.2-4.8) Test 05/29/24 05:19 05/28/24 11:21 05/26/24 09:57 05/26/24 05:42 Differential Total Cells Counted 100.0 (100) Neutrophils % (Manual) 83 (37.0-80.0) Band Neutrophils % (Manual) 0 Lymphocytes % (Manual) 5 (10.0-50.0) Monocytes % (Manual) 8 (0-12) Eosinophils % (Manual) 4 (0-7) Basophils % (Manual) 0 (0.0-2.0) Metamyelocytes % (manual) 0 Myelocytes % (Manual) 0 Promyelocytes % (Manual) 0 Blast Cells % (Manual) 0 Reactive Lymphocytes 0 POC Glucose 149 mg/dl (70-106) Stool Occult Blood Negative (Negative) Stool Occult Blood Sample #3 (Negative) Large Platelets Moderate Stomatocytes Few [place] Cells Few Prothrombin Time 11.8 sec (9.3-11.8) Prothrombin Time INR 1.12 (0.9-1.15) Activated Partial Thromboplast Time 33.9 SEC (24.5-34.5) Carcinoembryonic Antigen 1.52 ng/mL (<=5.0) Test 05/25/24 16:52 05/25/24 15:31 05/25/24 13:15 05/25/24 10:39 Iron Level 317 ug/dL (50-170) Total Iron Binding Capacity 349 ug/dL (250-425) Percent Iron Saturation 90.8 % (15-50) Ferritin 11.7 ng/mL (10-291) Vitamin D 25-Hydroxy 24.1 ng/mL (30.0-100) Urine Color Yellow (Yellow) Urine Clarity Clear (Clear) Urine pH 6.0 (5.0-9.0) Urine Specific [place] 1.013 (1.001-1.035) Urine Protein 3+ (Negative) Urine Ketones Negative (Negative) Urine Blood Negative /uL (Negative) Urine Nitrite Negative (Negative) Urine Bilirubin Negative (Negative) Urine Urobilinogen Normal mg/dL (Negative) Urine Leukocyte Esterase Negative /uL (Negative) Urine RBC 1 /hpf (0 - 4) Urine WBC 1 /hpf (0 - 5) Urine Squamous Epithelial Cells Few /hpf (<5) Urine Bacteria None seen /hpf (None Seen) Urine Osmolality 334 mOsm/kg Urine Creatinine 68.58 mg/dL (30.0-125.0) Urine Protein/Creatinine Ratio 9.16 Urine Sodium 22 mmol/L (40-220) Urine Glucose 4+ mg/dL (Normal) Urine Total Protein 628.3 mg/dL (1-14) Hemoglobin A1c 5.5 % A1C (<5.7) Phosphorus Level 3.7 mg/dL (2.4-5.1) Test 05/25/24 04:44 05/24/24 03:24 05/24/24 01:40 05/23/24 22:43 Parathyroid Hormone (Intact) 135.0 pg/mL (18.4-80.1) B-Type Natriuretic Peptide 3028.60 pg/mL (0-100) Influenza Type A Antigen Negative (Negative) Influenza Type B Antigen Negative (Negative) SARS-CoV-2 Antigen (Rapid) Negative (NEGATIVE) Troponin I High Sensitivity 40 ng/L (</=34) Other Laboratory Tests 06/03/24 05:23 05/31/24 05:32 Brief Hx & Hospital Course: SEE DICTATED NOTE Condition at Discharge: Fair Final Diagnosis/Problems List CHF Discharge Disposition: Home Discharge Instruct/Medications Diet: Cardiac 2g Na,low cholest Diet comment: FLUID RESTRICTION TO 1100 CC/DAY Activity: No Restrictions, As Tolerated Follow Up/Referral: SCRIPT TO PHARMACY Discharge Statement: "Patient was advised to return to the ER or call 911 if any headaches, dizziness, shortness of breath, chest pain, abdominal pain, bleeding, fevers, or worsening of medical condition. Patient was counseled about treatment plan, medications, possible side effects, patientverbalized understanding. All questions were answered to the best of my ability. This discharge took greater then 30 minutes in planning, reviewing documentation, counseling the patient, and discussing with other team members." ASSESSMENT ASSESSMENT Assessment CHF Date of Service: Jun 03, 2024 Billing Provider: KERA BOLTON MD Common Visit Codes: 51550-LAY/OBS DISCH DAY >30min KERA BOLTON MD Jun 03, 2024 14:26
[2024-06-03] MEDS ORDERED: B-CO1TAB60 PO (14:32)
--- NOTE | 2024-06-03 14:47 | DVHDS ---
DATE OF DISCHARGE: 06/03/2024 HISTORY OF PRESENT ILLNESS: The patient is a 68-year-old lady who was admitted with history of coronary artery disease, congestive heart failure, chronic kidney disease, hypertension, hyperlipidemia, who presented with worsening shortness of breath and lower extremity edema. HOSPITAL COURSE: The patient was noted to be in congestive heart failure as well as renal failure. She was seen in Cardiology consult as well as by Dr. Will. The patient was also seen in GI consult for severe anemia with a hemoglobin of 5.4. The patient was transfused 2 units of blood. The patient was to undergo a colonoscopy, but it was postponed because of CHF. The patient's hemoglobin, however, has remained stable. The patient's stool for occult blood has been negative. Influenza tests were negative. The patient's creatinine at the time of discharge was 1.9. The patient will now be discharged home to resume her home medications including Lasix 40 mg daily. She has been asked to be on fluid restriction and will get a followup chemistries. She will follow up with her primary in the next 1-2 weeks. FINAL DIAGNOSES: Therefore, * Acute respiratory failure. * Severe anemia, status post transfusion. * Acute on chronic systolic/diastolic heart failure. * Diabetes mellitus. * Hypertension. * Chronic kidney disease, stage IIIB. * Coronary artery disease. * Hyponatremia. PLAN: The patient will be following up with GI for outpatient colonoscopy. Time spent in discharge planning and review of plan with the patient and nursing was 39 minutes. MD EDY Prabhakar/DELFIN TID: [id number] RECEIPT: [id number]
--- NOTE | 2024-06-03 15:30 | DVHPN2 ---
Progress Note Date Seen: Jun 03, 2024 Medical Necessity Reason Pt with a Central, PICC or Fol: No Subjective Patient reports: No new complaints Objective vital signs Vital Sign Date Time Temp Pulse Resp B/P (MAP) Pulse Ox O2 Delivery O2 Flow Rate FiO2 06/03/24 12:37 97.4 75 19 152/65 (94) 96 97.4 06/03/24 10:00 Room Air 0.0 06/03/24 10:00 21 Total Intake and Output 06/02/24 06/02/24 06/03/24 15:00 23:00 07:00 Intake Total 660 ml 160 ml Output Total 600 ml 200 ml Balance 60 ml -40 ml medications Current Medications Medications Dose Ordered Sig/Yesenia Route Start Time Stop Time Status Last Admin Dose Admin Hydralazine HCl 10 mg Q6HP PRN IV 05/24/24 01:15 06/02/24 05:54 10 MG Atorvastatin Calcium 20 mg HS PO 05/24/24 22:00 06/02/24 21:56 20 MG Diagnostic Test (Pha) 1 strip ACHS 05/24/24 07:00 06/03/24 06:04 1 STRIP Insulin Human Regular ACHS SC 05/24/24 07:00 06/02/24 22:15 2 UNITS Dextrose 50 ml UD PRN IV 05/24/24 01:15 Ondansetron HCl 4 mg Q4HP PRN IV 05/24/24 01:15 05/24/24 20:44 4 MG Docusate Sodium 100 mg BIDPRN PRN PO 05/24/24 01:15 Acetaminophen 650 mg Q6HP PRN PO 05/24/24 01:15 05/25/24 20:51 650 MG Nitroglycerin 0.4 mg Q5MINP PRN SL 05/24/24 05:00 Empaglifozin 10 mg QAM PO 05/25/24 07:00 06/03/24 06:01 10 MG Pantoprazole Sodium 40 mg DAILY PO 05/25/24 10:00 06/03/24 10:03 40 MG Losartan Potassium 100 mg DAILY PO 05/25/24 10:00 06/03/24 10:10 100 MG Albuterol 2.5 mg Q4HPRN PRN NEB 05/27/24 11:00 Cancel Guaifenesin/ Dextromethorphan 10 ml Q6HPRN PRN PO 05/28/24 23:45 05/29/24 02:11 10 ML Nystatin 1 applic BID TOP 05/30/24 22:00 06/01/24 09:33 1 APPLIC Furosemide 40 mg DAILY PO 06/02/24 10:00 06/03/24 10:09 40 MG Urea 15 gm BID PO 06/02/24 22:00 06/03/24 10:02 15 GM laboratory and microbiology Laboratory Tests 06/03/24 05:23 05/31/24 05:32 Test 06/03/24 05:23 Range/Units Serum Glucose 105 74-106 mg/dL Problem List/Assessment/Plan Problem List/Assessment/Plan Acute kidney injury likely cardiorenal ckd 3b Congestive heart failure exacerbation EF 30% COPD exacerbation Hyponatremia Significant anemia status post packed red blood cell transfusion Iron deficiency anemia Hypertension recs sodium 123 fluid restriction lasix po Plan discussed with: Patient My Orders My Orders Orders - CARRINGTON ESTES MD Procedure Category Date Status Time Osmolality Urine LAB 06/02/24 Logged 16:31 Urine Sodium LAB 06/02/24 Logged 16:31 [facility] Lambda Lite LAB 06/03/24 In Process Chain Free S 04:00 Urea (Ure-Na) PHA 06/02/24 In Process 22:00 Dietary Evaluation Review Comments: follow current diet, monitor intake to meet 75% of her needs Expected Outcomes/Goals: contolled DM, gradual weight loss, improved lab values CARRINGTON ESTES MD Jun 03, 2024 15:30
[2024-06-03] MEDS: SODIUM CHL 3% 100 ML IV ONE (16:00)
--- NOTE | 2024-06-03 17:00 | DVHPN2 ---
Progress Note - Dictate Date Seen: Jun 03, 2024 Medical Necessity Reason Pt with a Central, PICC or Fol: No Subjective No new complaints Hyponatremia slowly resolving Chronic kidney disease slowly improving H&H is stable and there was no active GI bleeding Stool for occult blood negative vital signs Vital Sign Date Time Temp Pulse Resp B/P (MAP) Pulse Ox O2 Delivery O2 Flow Rate FiO2 06/03/24 16:30 98.0 80 17 142/73 (96) 99 98.0 06/03/24 10:00 Room Air 0.0 06/03/24 10:00 21 Total Intake and Output 06/02/24 06/02/24 06/03/24 15:00 23:00 07:00 Intake Total 660 ml 160 ml Output Total 600 ml 200 ml Balance 60 ml -40 ml medications Current Medications Medications Dose Ordered Sig/Yesenia Route Start Time Stop Time Status Last Admin Dose Admin Hydralazine HCl 10 mg Q6HP PRN IV 05/24/24 01:15 06/02/24 05:54 10 MG Atorvastatin Calcium 20 mg HS PO 05/24/24 22:00 06/02/24 21:56 20 MG Diagnostic Test (Pha) 1 strip ACHS 05/24/24 07:00 06/03/24 06:04 1 STRIP Insulin Human Regular ACHS SC 05/24/24 07:00 06/02/24 22:15 2 UNITS Dextrose 50 ml UD PRN IV 05/24/24 01:15 Ondansetron HCl 4 mg Q4HP PRN IV 05/24/24 01:15 05/24/24 20:44 4 MG Docusate Sodium 100 mg BIDPRN PRN PO 05/24/24 01:15 Acetaminophen 650 mg Q6HP PRN PO 05/24/24 01:15 05/25/24 20:51 650 MG Nitroglycerin 0.4 mg Q5MINP PRN SL 05/24/24 05:00 Empaglifozin 10 mg QAM PO 05/25/24 07:00 06/03/24 06:01 10 MG Pantoprazole Sodium 40 mg DAILY PO 05/25/24 10:00 06/03/24 10:03 40 MG Losartan Potassium 100 mg DAILY PO 05/25/24 10:00 06/03/24 10:10 100 MG Albuterol 2.5 mg Q4HPRN PRN NEB 05/27/24 11:00 Cancel Guaifenesin/ Dextromethorphan 10 ml Q6HPRN PRN PO 05/28/24 23:45 05/29/24 02:11 10 ML Nystatin 1 applic BID TOP 05/30/24 22:00 06/01/24 09:33 1 APPLIC Furosemide 40 mg DAILY PO 06/02/24 10:00 06/03/24 10:09 40 MG objective Mild distress; GENERAL:Abnormal, LUNGS:Abnormal, CVS:Abnormal laboratory and microbiology Laboratory Tests 06/03/24 05:23 05/31/24 05:32 Test 06/03/24 05:23 Range/Units Serum Glucose 105 74-106 mg/dL Problems(with codes): (1) Hyperglycemia due to type 2 diabetes mellitus (2) Frequent nosebleeds (3) Anemia (4) Severe anemia (5) Melena (6) Hyponatremia (7) Generalized weakness (8) Bilateral pleural effusion Prognosis Plan Discharge planning is in progress Oral fluid restriction of 1-1.5 L per day Appreciate nephrology follow up Patient will follow up with GI Services as an outpatient to discuss elective colonoscopy once medically stabilized Dietary Evaluation Review Comments: follow current diet, monitor intake to meet 75% of her needs Expected Outcomes/Goals: contolled DM, gradual weight loss, improved lab values Plan discussed with: Patient NEW MATTA MD Jun 03, 2024 17:00
[2024-06-04 10:06] LABS: Kappa Lite Chain Free Serum 48.3 mg/L (3.3-19.4)
== END 2024-06-03 18:20 | disposition home or self-care (01) | DRG 280 ==
LOC: ER 19:06 → TELE 05-24 04:55 → TELE-WESTW 05-24 18:18 → TELE-EAST 05-25 02:31 → EAST 06-01 12:52
PROVIDERS: ADMIT Internal Medicine; ATTEND Internal Medicine
PROC: 30233N1 Transfusion of Nonautologous Red Blood Cells into Peripheral Vein, Percutaneous Approach (ICD-10-PCS; principal; 2024-05-24)
DX: I13.2 Hypertensive heart and chronic kidney disease with heart failure and with stage 5 chronic kidney disease, or end stage renal disease (principal); I50.43 Acute on chronic combined systolic (congestive) and diastolic (congestive) heart failure; I21.4 Non-ST elevation (NSTEMI) myocardial infarction; J96.01 Acute respiratory failure with hypoxia; N17.9 Acute kidney failure, unspecified; E87.1 Hypo-osmolality and hyponatremia; N18.5 Chronic kidney disease, stage 5; J44.1 Chronic obstructive pulmonary disease with (acute) exacerbation; K92.2 Gastrointestinal hemorrhage, unspecified; Z20.822 Contact with and (suspected) exposure to COVID-19; D50.0 Iron deficiency anemia secondary to blood loss (chronic); Z68.25 Body mass index [BMI] 25.0-25.9, adult; E11.22 Type 2 diabetes mellitus with diabetic chronic kidney disease; E78.5 Hyperlipidemia, unspecified; I25.10 Atherosclerotic heart disease of native coronary artery without angina pectoris; E11.65 Type 2 diabetes mellitus with hyperglycemia; E66.9 Obesity, unspecified; D75.839 Thrombocytosis, unspecified; B86 Scabies; B34.9 Viral infection, unspecified; E87.6 Hypokalemia; Z88.6 Allergy status to analgesic agent; Z83.3 Family history of diabetes mellitus; Z82.49 Family history of ischemic heart disease and other diseases of the circulatory system; Z79.899 Other long term (current) drug therapy
CPT/HCPCS: 36415; 71045; 76775; 80048; 80053; 81001; 82270; 82306; 82378; 82570; 82728; 82962; 83036; 83521; 83540; 83550; 83735; 83880; 83930; 83935; 83970; 84100; 84156; 84300; 84484; 84550; 85007; 85025; 85027; 85610; 85730; 86850; 86900; 86901; 86920; 86922; 87426; 87804; 93005; 94640; 96374; 96375; 97116; 97163; 97530; 99291; G0378; J1756; J1815; J2405

== ENCOUNTER 2024-07-02 16:24 | Inpatient (IN) | payer OTHER, MEDICAID ==
[~2024-07-02] VITALS: Ht 167.6 cm; Wt 71.3 kg
[~2024-07-02 16:24] MED LIST changes: +ATOR20TA50 PO; +B-CO1TAB60 PO; +FURO1TAB31 PO; +METO-6 PO; +PANT40T PO; -PANT40TA2 PO
--- NOTE | 2024-07-02 16:44 | ED.PDOC ---
History of Present Illness HPI Comments 68-year-old female came to the ER stating that she has been having swollen tongue along with dizziness feeling faint for the past few hours. She was fine this morning when she woke up as the day progressed she was getting weaker and more dizzy. She denies any allergies. History of hypertension diabetes. Denies any other symptoms. Time Seen by MD: 16:31 Primary Care Provider: ROSARIO Reviewed Notes: Nurses Notes, Medications, Allergies Allergies: Coded Allergies: Ibuprofen (Verified Allergy, Unknown, 10/03/23) Home Meds Active Scripts B-Complex W/ C & Folic Acid (Nephro-Rio) Tab, 1 TAB PO DAILY for 30 Days, #30 TAB 3 Refills Prov:KERA BOLTON MD 06/03/24 Metoprolol Succinate (Toprol Xl) 50 Mg Tab, 50 MG PO DAILY for 30 Days, #30 TAB 2 Refills Prov:KERA BOLTON MD 06/03/24 Furosemide (Lasix) 40 Mg Tab, 40 MG PO QAM for 30 Days, #30 TAB 3 Refills Prov:KERA BOLTON MD 06/03/24 Pantoprazole Sodium Sesquihydr (Pantoprazole Sodium) 40 Mg Tab, 40 MG PO DAILY for 30 Days, #30 TAB 2 Refills Prov:KERA BOLTON MD 06/03/24 Losartan Potassium (Losartan Potassium) 100 Mg Tab, 100 MG PO DAILY for 30 Days, #30 TAB 2 Refills Prov:KERA BOLTON MD 06/03/24 Empagliflozin (Jardiance) 10 Mg Tab, 10 MG PO DAILY for 30 Days, #30 TAB 2 Refills Prov:KERA BOLTON MD 06/03/24 Atorvastatin Calcium (ATORVASTATIN CALCIUM) 20 Mg Tab, 20 MG PO HS for 30 Days, #30 TAB 3 Refills Prov:KERA BOLTON MD 06/03/24 Ferrous Sulfate (Ferrous Sulfate) 325 Mg Tab, 1 TAB PO EVERY OTHER DAY for 30 Days, #15 TAB Prov:LIN MADRIGAL MD 02/28/24 Ergocalciferol (VITAMIN D 56794 UNIT) 50,000 [place], [address] UNIT PO Q7D for 12 Days, #12 CAP Prov:MABEL GUZMAN MD 01/11/23 Empagliflozin (Jardiance) 10 Mg Tab, 10 MG PO QAM for 30 Days, #30 TAB Prov:THOMASMABEL MD 01/11/23 Reported Medications Hydralazine Hcl (Hydralazine Hcl) 50 Mg Tab, 100 MG PO BID 10/03/23 Furosemide (Furosemide) 40 Mg Tab, 1 TAB PO DAILY 10/03/23 Finerenone (Kerendia) 10 Mg Tab, 1 TAB PO DAILY 10/01/23 Metoprolol Succinate (Metoprolol Succinate Er) 100 Mg Tab, 1 TAB PO DAILY 10/01/23 Losartan Potassium (Losartan Potassium) 100 Mg Tab, 100 MG PO DAILY for 30 Days, MG 07/12/21 Information Source: Patient Mode of Arrival: Wheelchair Severity: Moderate Timing: Hours Duration: Since onset Past Medical History PAST MEDICAL HISTORY: Anemia, CAD, CHF, DM, High Lipids, HTN Surgical History: , Hernia Repair REFERRAL RN 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 REFERRAL RN History Family History Family History: No family hx of Cancer, No family hx of DM, Family hx of heart sean Social History Smoker: Non-Smoker Alcohol: Denies ETOH Use Drugs: Denies Drug Use Lives In: Home Constitutional: denies: chills, diaphoresis, fatigue, fever, malaise, sweats, weakness, others EENTM: denies: blurred vision, double vision, ear bleeding, ear discharge, ear drainage, ear pain, ear ringing, eye pain, eye redness, hearing loss, mouth pain, mouth swelling, nasal discharge, nose bleeding, nose congestion, nose pain, photophobia, tearing, throat pain, throat swelling, voice changes, others Respiratory: denies: cough, hemoptysis, orthopnea, SOB at rest, shortness of breath, SOB with excertion, stridor, wheezing, others Cardiovascular: denies: chest pain, dizzy spells, diaphoresis, Dyspnea on exertion, edema, irregular heart beat, left arm pain, lightheadedness, palpitations, PND, syncope, others Gastrointestinal: denies: abdomen distended, abdominal pain, blood streaked bowels, constipated, diarrhea, dysphagia, difficulty swallowing, hematemesis, melena, nausea, poor appetite, poor fluid intake, rectal bleeding, rectal pain, vomiting, others Genitourinary: denies: abnormal vagina bleeding, burning, dyspareunia, dysuria, flank pain, frequency, hematuria, incontinence, pain, , vagina d ischarge, urgency, others Neurological: reports: dizziness; denies: fainting, headache, left sided numbness, left sided weakness, numbness, paresthesia, pre-existing deficit, right sided numbness, right sided weakness, seizure, speech problems, tingling, tremors, weakness, others Musculoskeletal: denies: back pain, gout, joint pain, joint swelling, muscle pain, muscle stiffness, neck pain, others Integumetry: denies: bruises, change in color, change in hair/nails, dryness, laceration, lesions, lumps, rash, wounds, others Allergic/Immunocompromised: denies: Difficulty Healing, Frequent Infections, Hives, Itching, others Hematologic/Lymphatic: denies: anemia, blood clots, easy bleeding, easy bruising, swollen glands, others Endocrine: denies: excessive hunger, excessive sweating, excessive thirst, excessive urination, flushing, intolerance to cold, intolerance to heat, unexplained weight gain, unexplained weight loss, others Psychiatric: denies: anxiety, bipolar disorder, depression, hopeless, panic disorder, schizophrenia, sleepless, suicidal, others Physical Exam General Appearance: Moderate Distress HEENT: Other (Tongue is swollen) Neck: Full Range of Motion, Non-Tender, Normal, Normal Inspection Respiratory: Chest Non-Tender, Lungs Clear, No Accessory Muscle Use, No Respiratory Distress, Normal Breath Sounds Cardiovascular: No Edema, No JVD, No Murmur, No Gallop, Normal Peripheral Pulses, Regular Rate/Rhythm Breast Exam: Deferred Gastrointestinal: No Organomegaly, Non Tender, No Pulsatile Mass, Normal Bowel Sounds, Soft Genitalia: Deferred Pelvic: Deferred Rectal: Deferred Extremities: No calf tenderness, Normal capillary refill, Normal inspection, Normal range of motion, Non-tender, No pedal edema Musculoskeletal : Apperance: Normal Neurologic: Alert Cerebellar Function: NOT DONE Reflexes: NOT DONE Skin: Normal Color Peripheral Pulses: 3+ Radial (R), 3+ Radial (L) Lymphatic: No Adenopathy Was a procedure done? Was a procedure done?: No Differential Dx Considerations may include: Anemia Electrolyte imbalance X-Ray, Labs, Meds, VS Patient alert. Complaining of swollen tongue dizziness. Possibly hypotension medication causing the swollen tongue. Vitals stable. Answering all questions. She still feels weak. Dizzy. CT of the head. Possible angioedema from hypotension medication. Explained to the patient. Continue cardiac monitoring. Monitor tongue swelling to decide whether she needs FFP. Time of 1ST Reevaluation: 16:49 Reevaluation 1ST: Unchanged Patient Education/Counseling: Diagnosis, Treatment, Prognosis Family Education/Counseling: No Family Present Departure 1 Departure Time of Disposition: 16:50 Impression: Primary Impression: Angioedema Qualified Codes: T78.3XXA - Angioneurotic edema, initial encounter Additional Impression: Hypertensive urgency Disposition: ADMITTED INPATIENT Admit to: Med Surg Condition: Guarded Critical Care Note Critical Care Time?: No Stability Stability form required: No Heart Score Heart Score: Heart Score Response (Comments) Value History N/A 0 EKG N/A 0 Age N/A 0 Risk Factors N/A 0 Troponin N/A 0 Total 0 BHARATHI BAILEY MD Jul 02, 2024 16:44
--- NOTE | 2024-07-02 17:22 | DVH ---
EXAM: XR Chest, 1 View CLINICAL INDICATION: sob TECHNIQUE: Frontal view of the chest. COMPARISON: XY CHEST XRAY 1 VIEW on DOS: 05/26/24, XY CHEST PORTABLE on DOS: 05/23/24, XY CHEST POR TABLE on DOS: 04/09/24, XY CHEST PORTABLE on DOS: 10/01/23, XY CHEST PORTABLE on DOS: 07/20/23 FINDINGS: LUNGS AND PLEURAL SPACES: See below. HEART: Cardiomegaly with mild congestion. MEDIASTINUM: Unremarkable. Normal mediastinal contour. BONES/JOINTS: Unremarkable. No acute fracture. OTHER FINDINGS: . . . .. IMPRESSION: Cardiomegaly with mild congestion.
[2024-07-02 17:57] LABS: Chloride 98 mmol/L (98-107); Potassium 4.5 mmol/L (3.5-5.1)
[2024-07-02 17:58] LABS: Anion Gap 10 (5-15); Carbon Dioxide 20 mmol/L (20-31)
[2024-07-02 18:03] LABS: BUN/Creatinine Ratio 24.6 (10.0-20.0)
[2024-07-02 18:17] LABS: Basophils # (auto) 0 10 ^3/uL (0-0.2); Basophils % (auto) 0.5 % (0.0-2.0); Lymphocytes % (auto) 2.5 % (10.0-50.0); Mean Corpuscular Volume 86.5 fL (80.0-100.0); Monocytes # (auto) 0.5 10 ^3/uL (0-1.3)
[2024-07-02 18:21] LABS: Eosinophils # (auto) 0.1 10 ^3/uL (0-0.8); Eosinophils % (auto) 0.5 % (0.0-7.0); Hematocrit 19.9 % (36.0-46.0); Lymphocytes # (auto) 0.3 10 ^3/uL (0.4-5.4); Mean Corpuscular Hemoglobin 29.7 pg (28.0-32.0); Mean Corpuscular Hgb Conc. 34.3 g/dL (32.0-36.0); Neutrophils # (auto) 9.2 10 ^3/uL (1.6-8.6); Neutrophils % (auto) 91.5 % (37.0-80.0); Platelet Count (auto) 470 10^3/uL (140-450); White Blood Cell 10.1 10^3/uL (4.4-10.8)
[2024-07-02 18:35] LABS: Blood Urea Nitrogen 46 mg/dL (9-23); Sodium 128 mmol/L (136-145)
[2024-07-02 18:41] LABS: Glucose 44 mg/dL (74-106)
[2024-07-02 18:45] LABS: Red Cell Distribution Width 30.9 % (11.8-14.3)
[2024-07-02 18:49] LABS: Hemoglobin 6.8 g/dL (12.2-16.2)
--- NOTE | 2024-07-02 19:02 | PRN ---
Misceleneous Note Note Note Patient initially evaluated by Dr Osullivan. Pending lab results and hospitalist admission. CBC shows Hgb 6.8 CMP shows BGC 44 and Sodium of 128. Type and screen, 2 Units PRBC, NS infusion ordered. Patient reports she came to the emergency department for severe dizziness. She denies black or bloody stools. She does not take blood thinners. She does have a history of chronic nose bleed for several years which she follows with ENT for. She last had a nose bleed lasting for apprximately 1 hour one week ago. Patient is on jardiance. ANNA COLON MD Jul 02, 2024 19:02
[2024-07-02] MEDS: DEXTROSE (50%) 50ML SYRG IV ONE (19:33)
[2024-07-02] MEDS: SODIUM CHLORIDE 0.9% 1,000 ML IV ONE (19:48)
--- NOTE | 2024-07-02 23:09 | DVHHPRES ---
History of Present Illness Resident Creating Document: JOSE BRUCE RESIDENT Reason for Visit: Dizziness History of Present Illness 68-year-old female presents with acute onset of weakness, dizziness, and near- syncope. 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 Patient reports associated photosensitivity but denies shortness of breath, palpitations, headache, or visual changes. She experienced a similar episode about a year ago, which resolved quickly. Patient has a history of type 2 diabetes mellitus and notes her blood glucose was 23 mg/dL, which is unusually low for her. Patient also reports tongue swelling that began after a nap today. She took Benadryl for the tongue swelling and it resolved. Patient denies fever or chest pain. Additional history includes recent hospitalization for 8 days due to chronic epistaxis causing anemia, requiring multiple Blood transfusion. Patient reports occasional blood clots from her nose, sometimes taking up to an hour to stop bleeding. Past Medical History - Type 2 Diabetes, Anemia, Chronic nosebleeds Past Social History Denies smoking, alcohol drinking, illicit drug abuse Review of Systems Review of Systems CONSTITUTIONAL: Admits: Fatigue, weakness, dizziness HEENT: Denies changes in vision and hearing. RESPIRATORY: Denies SOB and cough. CV: Denies palpitations and chest pain. GI: Denies abdominal pain, nausea, vomiting and diarrhea. : Denies dysuria and urinary frequency. MSK: DMuscle weakness, difficulty walking SKIN: Denies rash and pruritus. NEUROLOGICAL: Denies headache Allergies: Coded Allergies: Ibuprofen (Verified Allergy, Unknown, 10/03/23) Medications Current Medications Medications Dose Ordered Sig/Yesenia Route Start Time Stop Time Status Last Admin Dose Admin Sodium Chloride 10 ml Q8HR IV 07/03/24 06:00 Exam Vital Signs Vital Signs Date Time Temp Pulse Resp B/P (MAP) Pulse Ox O2 Delivery O2 Flow Rate FiO2 07/02/24 19:35 96.8 62 16 162/53 (89) 100 96.8 07/02/24 18:54 Room Air* 0 21 Exam GENERAL: Not in acute distress. HEENT: EOMI, Moist mucous membranes. No scleral icterus. No cervical lymphadenopathy. LUNGS: Clear to auscultation bilaterally. No accessory muscle use. CARDIOVASCULAR: Regular rate and rhythm. No murmur. No JVD. ABDOMEN: Soft, nontender and nondistended. No palpable masses. EXTREMITIES: No edema. Nontender. SKIN: No rashes or lesions. Warm. NEUROLOGIC: Alert and oriented X3 Labs/Xrays Labs Test 07/02/24 20:03 07/02/24 17:24 Range/Units POC Glucose 158 H 70-106 mg/dl White Blood Count 10.1 4.4-10.8 10^3/uL Red Blood Count 2.30 L 4.0-5.20 10^6/uL Hemoglobin 6.8 *L 12.2-16.2 g/dL Hematocrit 19.9 L 36.0-46.0 % Mean Corpuscular Volume 86.5 80.0-100.0 fL Mean Corpuscular Hemoglobin 29.7 28.0-32.0 pg Mean Corpuscular Hemoglobin Concent 34.3 32.0-36.0 g/dL Red Cell Distribution Width 30.9 H 11.8-14.3 % Platelet Count 470 H 140-450 10^3/uL Mean Platelet Volume 5.6 L 6.9-10.8 fL Neutrophils (%) (Auto) 91.5 H 37.0-80.0 % Lymphocytes (%) (Auto) 2.5 L 10.0-50.0 % Monocytes (%) (Auto) 5.0 0.0-12.0 % Eosinophils (%) (Auto) 0.5 0.0-7.0 % Basophils (%) (Auto) 0.5 0.0-2.0 % Neutrophils # (Auto) 9.2 H 1.6-8.6 10 ^3/uL Lymphocytes # (Auto) 0.3 L 0.4-5.4 10 ^3/uL Monocytes # (Auto) 0.5 0-1.3 10 ^3/uL Eosinophils # (Auto) 0.1 0-0.8 10 ^3/uL Basophils # (Auto) 0 0-0.2 10 ^3/uL Nucleated Red Blood Cells 0.0 % Sodium Level 128 L 136-145 mmol/L Potassium Level 4.5 3.5-5.1 mmol/L Chloride Level 98 98-107 mmol/L Carbon Dioxide Level 20 20-31 mmol/L Anion Gap 10 5-15 Blood Urea Nitrogen 46 H 9-23 mg/dL Creatinine 1.87 H 0.550-1.02 mg/dL Glomerular Filtration Rate Calc 29 >90 mL/min BUN/Creatinine Ratio 24.6 H 10.0-20.0 Serum Glucose 44 *L 74-106 mg/dL Calcium Level 9.0 8.7-10.4 mg/dL Troponin I High Sensitivity 10 </=34 ng/L Assessment/Plan Assessment/Plan # Dizziness due to hypoglycemia - at wanting blood glucose were 40/45/47 - patient got oranges juice and blood glucose went up to 158 - old diabetic medication or insulin if blood glucose level is less than 120 # Angioedema -patient complaining of tongue swelling - improved after taking Benadryl #Severe anemia - patient history of anemia requiring recurrent transfusions, causes being CKD, epistaxis. - packed red blood cell 1 unit - Follow up CBC, H&H # Hyponatremia - likely from CHF. - Monitor BMP # chronic thrombocytosis unknown source of cause - Follow up CBC # possible volume overload due to HFrEF -CXR with pulmonary vascular congestion. # History of epistaxis - No current epistaxis noted. # HFrEF on GDM T - Last Echo on 04/10/24 showing EF 35% - continue medications as tolerated # CKD stage IV - Cr level on admission was 1.87 - GFR 29 - avoid nephrotoxic agent - monitor renal function # Diabetes Type II - Last HbA1C on 05/25/24 was 5.5 - start on mild a.c. HS SSI # Hypertension - continue home meds # Hyperlipidemia -continue Atorvastatin Goal of care discussed with patient for 37 minutes: Full code Case discussed with Dr. Madrigal Plan discussed with: Patient My Orders Orders - JOSE BRUCE RESIDENT Procedure Category Date Status Time Urinalysis LAB 07/02/24 Logged 21:01 Admit ADMIT 07/02/24 Transmitted 22:26 Allergies ASIF 07/02/24 In Process 22:26 Code Status CODE 07/02/24 Transmitted 22:26 Sodium Chloride Lock PHA 07/03/24 In Process (Saline Lock Ns) 06:00 Complete Blood Count LAB 07/03/24 Verified 04:00 Comprehensive LAB 07/03/24 Verified Metabolic Panel 04:00 Date of Service: Jul 03, 2024 Billing Provider: LIN MADRIGAL MD Common Visit Codes: [id number] INP/OBS CARE (HIGH) JOSE BRUCE Jul 02, 2024 23:09 LIN MADRIGAL MD Jul 05, 2024 15:10
[2024-07-02] MEDS ORDERED: DEXTROSE (50%) 50ML SYRG IV PRN (23:15)
[2024-07-03] VITALS (9 sets, daily range): BP systolic 150–169; BP diastolic 51–70; PULSE 63–73; RESP 16–20; TEMP 97.3–98.5; O2SAT 97–99
[2024-07-03] MEDS: SODIUM CHLOR 0.9% PF (SALINE LOCK) 10ML VIAL/SYR IV SCH (05:27)
[2024-07-03 05:51] LABS: Eosinophils # (auto) 0.4 10 ^3/uL (0-0.8); Lymphocytes # (auto) 0.6 10 ^3/uL (0.4-5.4); Monocytes # (auto) 0.6 10 ^3/uL (0-1.3); Neutrophils # (auto) 8.9 10 ^3/uL (1.6-8.6)
[2024-07-03 06:01] LABS: Basophils # (auto) 0 10 ^3/uL (0-0.2); Basophils % (auto) 0.3 % (0.0-2.0); Hematocrit 19.2 % (36.0-46.0); Lymphocytes % (auto) 5.7 % (10.0-50.0); Mean Corpuscular Hgb Conc. 32.9 g/dL (32.0-36.0); Monocytes % (auto) 5.5 % (0.0-12.0); Neutrophils % (auto) 84.5 % (37.0-80.0); Platelet Count (auto) 450 10^3/uL (140-450); Red Blood Cells 2.18 10^6/uL (4.0-5.20); White Blood Cell 10.5 10^3/uL (4.4-10.8)
[2024-07-03 06:02] LABS: Red Cell Distribution Width 30.6 % (11.8-14.3)
[2024-07-03 06:03] LABS: Hemoglobin 6.3 g/dL (12.2-16.2)
[2024-07-03 06:14] LABS: Alanine Aminotransferase 20 U/L (7-40); Albumin 3.6 g/dL (3.2-4.8); Alkaline Phosphatase 83 U/L (46-116); Anion Gap 8 (5-15); Aspartate Aminotransferase 18 U/L (13-40); BUN/Creatinine Ratio 23.4 (10.0-20.0); Bilirubin, Total 0.4 mg/dL (0.2-1.0); Calcium 8.9 mg/dL (8.7-10.4); Chloride 102 mmol/L (98-107); Potassium 4.2 mmol/L (3.5-5.1)
[2024-07-03 06:15] LABS: Anisocytosis Moderate; Blood Urea Nitrogen 36 mg/dL (9-23); Carbon Dioxide 18 mmol/L (20-31); Glucose 69 mg/dL (74-106); Hypochromia Slight; Sodium 128 mmol/L (136-145); Total Protein 5.5 g/dL (5.7-8.2)
[2024-07-03 06:17] LABS: Ovalocytes FEW; Platelet Estimate Adequate
[2024-07-03] MEDS: ACCU-CHEK COMFORT CURVE STRIP VI SCH (06:38)
[2024-07-03] MEDS: InsuLIN REG 1unit/0.01ml Soln (100units/ml) SC SCH (06:38)
[2024-07-03] MEDS: LOSARTAN POTASSIUM 50 MG TAB PO SCH (11:06)
[2024-07-03] MEDS: METOPROLOL SUCCINATE XL 50 MG TAB PO SCH (11:07)
--- NOTE | 2024-07-03 15:22 | DVHPNRES ---
Progress Note Date Seen: Jul 03, 2024 Resident Creating Document: DONTAE CRYSTAL RESIDENT Medical Necessity Reason Pt with a Central, PICC or Fol: No Subjective Review of Systems This is a 68-year-old female with past medical history of type 2 diabetes mellitus, CHF, CKD, recurrent epistaxis presented to the ED for an evaluation of dizziness and near syncopal event. 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 She also mentioned that she had several episodes of recurrent epistaxis in last 1 and half year requiring multiple blood transfusion and hospitalization as well. On admission blood sugar was 40 mg/per dl and HB was 6.8>6.3 and 1 unit of blood transfusion was done. Patient was seen and examined on the bedside. she is alert oriented x3. Mentioned improvement of shortness of breath, dizziness and complains of bilateral leg swelling. No other active complaint Constitutional: No: Fever, Chills, Sweats, Weakness, Malaise, Other Eyes: No: Pain, Vision change, Conjunctivae inflammation, Eyelid inflammation, Other, Redness ENT: No: Ear pain, Ear discharge, Nose pain, Nose discharge, Nose congestion, Mouth pain, Mouth swelling, Throat pain, Throat swelling, Other Respiratory: Shortness of breath, improving No: Cough, Dry,Wheezing, Hemoptysis, Pleuritic Pain, Sputum, Wheezing, Other Cardiovascular: No: Chest Pain, Palpitations, Orthopnea, Paroxysmal Noc. Dyspnea, Edema, Lt Headedness, Other Gastrointestinal: No: Nausea, Vomiting, Abdominal Pain, Diarrhea, Constipation, Melena, Hematochezia, Other Musculoskeletal: No: other, neck pain, shoulder pain, arm pain, back pain, hand pain, leg pain, foot pain Neurological:; No: Weakness, Numbness, Incoordination, Change in speech, Confusion, Seizures Objective vital signs Vital Sign Date Time Temp Pulse Resp B/P (MAP) Pulse Ox O2 Delivery O2 Flow Rate FiO2 07/03/24 11:07 63 150/61 07/03/24 09:00 97.3 20 99 97.3 07/02/24 18:54 Room Air* 0 21 medications Current Medications Medications Dose Ordered Sig/Yesenia Route Start Time Stop Time Status Last Admin Dose Admin Sodium Chloride 10 ml Q8HR IV 07/03/24 06:00 07/03/24 05:27 10 ML Diagnostic Test (Pha) 1 strip ACHS 07/03/24 07:00 07/03/24 11:26 1 STRIP Insulin Human Regular ACHS SC 07/03/24 07:00 Dextrose 50 ml UD PRN IV 07/02/24 23:15 Furosemide 20 mg BIDD IV 07/03/24 18:00 Metoprolol Succinate 50 mg DAILY PO 07/03/24 10:00 07/03/24 11:07 50 MG Losartan Potassium 50 mg DAILY PO 07/03/24 10:00 07/03/24 11:06 50 MG Examination Physical examination: General Appearance: Alert, Oriented X3, Cooperative, No acute distress HEENT: Atraumatic, PERRLA, EOMI, Mucous membrane moist/pink Respiratory: Clear to auscultation, Normal air movement Cardiovascular: Regular rate, Normal S1, Normal S2, No murmurs, no chest wall tenderness Abdominal: Normal bowel sounds, Soft, No tenderness, No hepatospenomegaly, No masses Extremities: Bilateral pedal edema +, No clubbing, No cyanosis, Normal pulses, No tenderness/swelling Skin: No rashes, No breakdown, No significant lesion Neuro: Normal gait, Normal speech, Strength at 5/5 X4 ext, Normal tone, Sensation intact, grossly intact cranial nerves. Psych/Mental Status: Mental status NL, Mood NL laboratory and microbiology Laboratory Tests 07/03/24 05:03 Test 07/03/24 05:03 Range/Units Serum Glucose 69 L 74-106 mg/dL Labs and/or images reviewed: Labs reviewed by me, Image(s) reviewed by me Problem List/Assessment/Plan Problem List/Assessment/Plan Assessment/Plan # Dizziness likely due to hypoglycemia # Type 2 diabetes melitus , HbA1C 5.5( 05/25/24) - On admission blood glucose trends were 40/45/47 - Patient got oranges juice and blood glucose went up to 158 - Mild sliding scale of insulin. - Orthostatic vital negative. # History of Angioedema -patient complaining of tongue swelling - improved after taking Benadryl # Acute on chronic anemia secondary to epistaxis # Recurrent history of epistaxis - On admission hemoglobin was 6.3 - 1 unit of PRBC given - monitor H/H # Acute on Chronic systolic heart failure HFrEF # Hypertensive heart disease # Dilutional hyponatremia secondary to heart failure - BNP is 726.40 - CXR showed cardiomegaly with congestion. - Last Echo on 04/10/24 showing EF 35% - continue GDMT and will uptitrate according to the response of the blood pressure. - Lasix 20 mg IV b.i.d - Continue Losartan 50 mg p.o. daily and metoprolol succinate XL 50 mg daily # CKD stage 3 # Hypertensive heart disease - Strict I&O - Avoid nephrotoxic medication # chronic thrombocytosis unknown source of cause - Follow up CBC Goal care discussed with the patient for more than 17 minutes full code Plan discussed with Dr. Loco Plan discussed with: Patient, Other My Orders My Orders Orders - DONTAE CRYSTAL Procedure Category Date Status Time Furosemide Injection PHA 07/03/24 In Process (Lasix Injection) 18:00 Metoprolol Xl PHA 07/03/24 In Process Succinate (Toprol Xl) 10:00 Losartan Tablet PHA 07/03/24 In Process (Cozaar Tablet) 10:00 Consistent DIET 07/03/24 Transmitted Carb(Ccho)Diabetes Dinner DONTAE CRYSTAL Jul 03, 2024 15:22
[2024-07-03] MEDS: FUROSEMIDE 20 MG/2 ML VIAL IV SCH (17:40)
[2024-07-04] VITALS (13 sets, daily range): BP systolic 148–168; BP diastolic 60–86; PULSE 60–76; RESP 16–18; TEMP 97.5–99; O2SAT 95–98
[2024-07-04 06:01] LABS: Basophils # (auto) 0.1 10 ^3/uL (0-0.2); Eosinophils # (auto) 0.5 10 ^3/uL (0-0.8); Hemoglobin 7.1 g/dL (12.2-16.2); Lymphocytes # (auto) 0.4 10 ^3/uL (0.4-5.4); Mean Corpuscular Volume 85.5 fL (80.0-100.0); Red Cell Distribution Width 27.4 % (11.8-14.3)
[2024-07-04 06:03] LABS: Basophils % (auto) 0.8 % (0.0-2.0); Eosinophils % (auto) 5.7 % (0.0-7.0); Hematocrit 20.5 % (36.0-46.0); Lymphocytes % (auto) 4.4 % (10.0-50.0); Mean Corpuscular Hemoglobin 29.5 pg (28.0-32.0); Mean Corpuscular Hgb Conc. 34.5 g/dL (32.0-36.0); Monocytes # (auto) 0.6 10 ^3/uL (0-1.3); Monocytes % (auto) 6.7 % (0.0-12.0); Neutrophils % (auto) 82.4 % (37.0-80.0); Platelet Count (auto) 367 10^3/uL (140-450); White Blood Cell 8.5 10^3/uL (4.4-10.8)
[2024-07-04 06:11] LABS: Chloride 102 mmol/L (98-107); Potassium 4.4 mmol/L (3.5-5.1)
[2024-07-04 06:12] LABS: Anion Gap 7 (5-15)
[2024-07-04 06:17] LABS: BUN/Creatinine Ratio 19.4 (10.0-20.0); Glucose 93 mg/dL (74-106)
[2024-07-04 06:19] LABS: Blood Urea Nitrogen 33 mg/dL (9-23); Calcium 8.6 mg/dL (8.7-10.4); Carbon Dioxide 18 mmol/L (20-31); Sodium 127 mmol/L (136-145)
[2024-07-04 06:36] LABS: Anisocytosis Moderate; Ovalocytes FEW; Platelet Estimate Adequate
--- NOTE | 2024-07-04 11:05 | DVHPNRES ---
Progress Note Date Seen: Jul 04, 2024 Resident Creating Document: DONTAE CRYSTAL RESIDENT Medical Necessity Reason Pt with a Central, PICC or Fol: No Subjective Review of Systems This is a 68-year-old female with past medical history of type 2 diabetes mellitus, CHF, CKD, recurrent epistaxis presented to the ED for an evaluation of dizziness and near syncopal event. 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 She also mentioned that she had several episodes of recurrent epistaxis in last 1 and half year requiring multiple blood transfusion and hospitalization as well. On admission blood sugar was 40 mg/per dl and HB was 6.8>6.3 and 1 unit of blood transfusion was done. Patient was seen and examined on the bedside. she is alert oriented x3. Mentioned improvement of shortness of breath, dizziness and complains of back pain. No other active complaint. Objective vital signs Vital Sign Date Time Temp Pulse Resp B/P (MAP) Pulse Ox O2 Delivery O2 Flow Rate FiO2 07/04/24 10:54 98.5 60 18 165/68 98.5 07/04/24 09:41 98 07/03/24 20:00 Room Air* 0 21 Total Intake and Output 07/03/24 07/03/24 07/04/24 15:00 23:00 07:00 Intake Total 600 ml Balance 600 ml medications Current Medications Medications Dose Ordered Sig/Yesenia Route Start Time Stop Time Status Last Admin Dose Admin Sodium Chloride 10 ml Q8HR IV 07/03/24 06:00 07/04/24 06:40 10 ML Diagnostic Test (Pha) 1 strip ACHS 07/03/24 07:00 07/04/24 06:41 1 STRIP Insulin Human Regular ACHS SC 07/03/24 07:00 Dextrose 50 ml UD PRN IV 07/02/24 23:15 Furosemide 20 mg BIDD IV 07/03/24 18:00 07/04/24 06:40 20 MG Metoprolol Succinate 50 mg DAILY PO 07/03/24 10:00 07/04/24 08:58 50 MG Losartan Potassium 50 mg DAILY PO 07/03/24 10:00 07/04/24 08:58 50 MG Examination Physical examination: General Appearance: Pale; Alert, Oriented X3, Cooperative, No acute distress HEENT: Atraumatic, PERRLA, EOMI, Mucous membrane moist/pink Respiratory: Clear to auscultation, Normal air movement Cardiovascular: Regular rate, Normal S1, Normal S2, No murmurs, no chest wall tenderness Abdominal: Normal bowel sounds, Soft, No tenderness, No hepatospenomegaly, No masses Extremities: Bilateral pedal edema +, No clubbing, No cyanosis, Normal pulses, No tenderness/swelling Skin: No rashes, No breakdown, No significant lesion Neuro: Normal gait, Normal speech, Strength at 5/5 X4 ext, Normal tone, Sensation intact, grossly intact cranial nerves. Psych/Mental Status: Mental status NL, Mood NL laboratory and microbiology Laboratory Tests 07/04/24 05:37 Test 07/04/24 05:37 Range/Units Serum Glucose 93 74-106 mg/dL Labs and/or images reviewed: Labs reviewed by me, Image(s) reviewed by me Problem List/Assessment/Plan Problem List/Assessment/Plan Assessment/Plan # Dizziness likely due to hypoglycemia # Type 2 diabetes mellitus , HbA1C 5.5( 05/25/24) - On admission blood glucose trends were 40/45/47 - Patient got oranges juice and blood glucose went up to 158 - Mild sliding scale of insulin. - Orthostatic vital negative. # History of Angioedema -patient complaining of tongue swelling - improved after taking Benadryl # Acute on chronic anemia secondary to epistaxis # Recurrent history of epistaxis - On admission hemoglobin was 6.3 - 2 unit of PRBC given - monitor H/H # Acute on Chronic systolic heart failure HFrEF # Hypertensive heart disease # Dilutional hyponatremia secondary to heart failure - BNP is 726.40 - CXR showed cardiomegaly with congestion. - Last Echo on 04/10/24 showing EF 35% - Started Hydralazine 25 mg PO TID, isosorbide mononitrate 30 mg daily - Lasix 20 mg IV b.i.d - Increased Losartan to 100 mg p.o. daily and continue metoprolol succinate XL 50 mg daily # CKD stage 3 # Hypertensive heart disease - Strict I&O - Avoid nephrotoxic medication # Chronic thrombocytosis; unknown source of cause; could be due to blood loss - Follow up CBC Goal care discussed with the patient for 20 minutes; full code Plan discussed with Dr. Matthew Plan discussed with: Patient, Other (RN) My Orders My Orders Orders - DONTAE CRYSTAL RESIDENT Procedure Category Date Status Time Consistent DIET 07/03/24 Transmitted Carb(Ccho)Diabetes Dinner [employer] -Active BBK 07/04/24 Logged Bleeding 08:16 Hydralazine Injection PHA 07/04/24 Logged (Apresoline Inject 11:15 Addendum Addendum Addendum I was physically present for the calle portions of the service provided to patient by THE RESIDENT. I have reviewed the documentation, discussed the case with resident and agree with the resident's documentation except as noted. Also the patient's clinical case was discussed with the patient's nurse. This medical document was created using an electronic medical record system with computerized dictation system. Although this document has been carefully reviewed, there might still be some phonetic and typographical errors. These areas are purely typographical due to imperfections of the software programs, and do not reflect any compromise in the patient's medical care. Late signature. Date of Service: Jul 04, 2024 Billing Provider: ALFONSO MATTHEW MD Common Visit Codes: [id number] INP/OBS CARE(HIGH) Secondary Visit Codes: [id number] CARE PLAN 30 MINUTES (20 minutes) DONTAE CRYSTAL Jul 04, 2024 11:05 ALFONSO MATTHEW MD Jul 05, 2024 07:18
[2024-07-04] MEDS: hydrALAZINE HCL 20 MG/ML VL IV ONE (11:27)
[2024-07-04] MEDS: hydrALAZINE HCL 25 MG TAB PO ONE (16:15)
[2024-07-04] MEDS: hydrALAZINE HCL 25 MG TAB PO SCH (21:58)
[2024-07-05 01:00] VITALS: BP 150/54; PULSE 78; RESP 18; TEMP 98.4; O2SAT 96
[2024-07-05 05:00] VITALS: BP 156/60; PULSE 73; RESP 18; TEMP 98.7; O2SAT 96
[2024-07-05 05:58] LABS: Basophils # (auto) 0.1 10 ^3/uL (0-0.2); Lymphocytes # (auto) 0.6 10 ^3/uL (0.4-5.4)
[2024-07-05 06:00] LABS: Basophils % (auto) 0.6 % (0.0-2.0); Eosinophils # (auto) 0.4 10 ^3/uL (0-0.8); Eosinophils % (auto) 4.2 % (0.0-7.0); Hematocrit 23.4 % (36.0-46.0); Lymphocytes % (auto) 6.7 % (10.0-50.0); Mean Corpuscular Hemoglobin 29.6 pg (28.0-32.0); Mean Corpuscular Hgb Conc. 34.2 g/dL (32.0-36.0); Mean Corpuscular Volume 86.5 fL (80.0-100.0); Monocytes # (auto) 0.7 10 ^3/uL (0-1.3); Monocytes % (auto) 7.6 % (0.0-12.0); Neutrophils # (auto) 7.6 10 ^3/uL (1.6-8.6); Neutrophils % (auto) 80.9 % (37.0-80.0); Platelet Count (auto) 388 10^3/uL (140-450); Red Blood Cells 2.71 10^6/uL (4.0-5.20); Red Cell Distribution Width 24.2 % (11.8-14.3); White Blood Cell 9.4 10^3/uL (4.4-10.8)
[2024-07-05 06:05] LABS: Anion Gap 9 (5-15); Chloride 99 mmol/L (98-107); Potassium 4.3 mmol/L (3.5-5.1)
[2024-07-05 06:06] LABS: Calcium 8.7 mg/dL (8.7-10.4)
[2024-07-05 06:11] LABS: BUN/Creatinine Ratio 20.9 (10.0-20.0); Blood Urea Nitrogen 34 mg/dL (9-23); Carbon Dioxide 17 mmol/L (20-31); Glucose 82 mg/dL (74-106); Sodium 125 mmol/L (136-145)
[2024-07-05 06:43] LABS: Anisocytosis Moderate; Ovalocytes FEW; Platelet Estimate Adequate
[2024-07-05] MEDS: ISOSORBIDE MONONITRATE ER 60 MG TAB PO SCH (08:48)
[2024-07-05] MEDS: LOSARTAN POTASSIUM 50 MG TAB PO SCH (08:49)
[2024-07-05 09:03] VITALS: BP 158/69; PULSE 71; RESP 18; TEMP 98.4; O2SAT 97
[2024-07-05] MEDS ORDERED: ISOS1TAB28 PO (11:12)
--- NOTE | 2024-07-05 11:29 | DVHDSRES ---
Discharge Summary Date of Admission Resident Creating Document: ALEJANDRO LEIGH RESIDENT Jul 02, 2024 at 22:26 Date of Discharge: Jul 05, 2024 Admitting Diagnosis Presyncopal event with dizziness Wounds: No wounds present at this time. Labs/Diagnostic Data: Laboratory Results Test 07/05/24 05:59 07/05/24 04:56 07/03/24 05:03 07/02/24 17:24 POC Glucose 87 mg/dl (70-106) White Blood Count 9.4 10^3/uL (4.4-10.8) Red Blood Count 2.71 10^6/uL (4.0-5.20) Hemoglobin 8.0 g/dL (12.2-16.2) Hematocrit 23.4 % (36.0-46.0) Mean Corpuscular Volume 86.5 fL (80.0-100.0) Mean Corpuscular Hemoglobin 29.6 pg (28.0-32.0) Mean Corpuscular Hemoglobin Concent 34.2 g/dL (32.0-36.0) Red Cell Distribution Width 24.2 % (11.8-14.3) Platelet Count 388 10^3/uL (140-450) Mean Platelet Volume 5.8 fL (6.9-10.8) Neutrophils (%) (Auto) 80.9 % (37.0-80.0) Lymphocytes (%) (Auto) 6.7 % (10.0-50.0) Monocytes (%) (Auto) 7.6 % (0.0-12.0) Eosinophils (%) (Auto) 4.2 % (0.0-7.0) Basophils (%) (Auto) 0.6 % (0.0-2.0) Neutrophils # (Auto) 7.6 10 ^3/uL (1.6-8.6) Lymphocytes # (Auto) 0.6 10 ^3/uL (0.4-5.4) Monocytes # (Auto) 0.7 10 ^3/uL (0-1.3) Eosinophils # (Auto) 0.4 10 ^3/uL (0-0.8) Basophils # (Auto) 0.1 10 ^3/uL (0-0.2) Nucleated Red Blood Cells 0.0 % Platelet Estimate Adequate Anisocytosis (manual) Moderate Ovalocytes Few Schistocytes Few Sodium Level 125 mmol/L (136-145) Potassium Level 4.3 mmol/L (3.5-5.1) Chloride Level 99 mmol/L (98-107) Carbon Dioxide Level 17 mmol/L (20-31) Anion Gap 9 (5-15) Blood Urea Nitrogen 34 mg/dL (9-23) Creatinine 1.63 mg/dL (0.550-1.02) Glomerular Filtration Rate Calc 34 mL/min (>90) BUN/Creatinine Ratio 20.9 (10.0-20.0) Serum Glucose 82 mg/dL (74-106) Calcium Level 8.7 mg/dL (8.7-10.4) Hypochromasia (manual) Slight Early Cells Few Magnesium Level 2.0 mg/dL (1.6-2.6) Total Bilirubin 0.4 mg/dL (0.2-1.0) Aspartate Amino Transferase (AST) 18 U/L (13-40) Alanine Aminotransferase (ALT) 20 U/L (7-40) Alkaline Phosphatase 83 U/L (46-116) Total Protein 5.5 g/dL (5.7-8.2) Albumin 3.6 g/dL (3.2-4.8) Troponin I High Sensitivity 10 ng/L (</=34) B-Type Natriuretic Peptide 726.40 pg/mL (0-100) Other Laboratory Tests 07/05/24 04:56 Brief Hx & Hospital Course: This is a 68-year-old female with past medical history of type 2 diabetes mellitus, CHF, CKD, recurrent epistaxis presented to the ED for an evaluation of dizziness and near syncopal event. 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 She also mentioned that she had several episodes of recurrent epistaxis in last 1 and half year requiring multiple blood transfusion and hospitalization as well. On admission blood sugar was 40 mg/per dl and HB was 6.8>6.3 and 1 unit of blood transfusion was done. An additional unit of red blood cells was transfused due to hemoglobin being 7.1. Today, patient was seen and evaluated at bedside. The patient denies dizziness, shortness of breath, chest pain, fever/chills or any other complaints at this time. The patient also denies any epistaxis since admission. Hemoglobin today was 8.0. Patient states that he is feeling well overall. We will discharge the patient with her current home medications and we will add isosorbide mononitrate 30 mg daily for her hypertension/CHF. Patient will continue with metoprolol succinate 100 mg daily, losartan 100 mg daily, hydralazine, furosemide 40 mg daily and rest of home medications. Patient needs to follow up with an ENT as an outpatient for recurrent epistaxis episodes. Patient will be also taking oral iron pills. Patient agrees and understands the plan. Physical examination on the day of discharge: General Appearance: Pale; Alert, Oriented X3, Cooperative, No acute distress HEENT: Atraumatic, PERRLA, EOMI, Mucous membrane moist/pink Respiratory: Clear to auscultation, Normal air movement Cardiovascular: Regular rate, Normal S1, Normal S2, No murmurs, no chest wall tenderness Abdominal: Normal bowel sounds, Soft, No tenderness, No hepatosplenomegaly, No masses Extremities: Bilateral pedal edema +, No clubbing, No cyanosis, Normal pulses, No tenderness/swelling Skin: No rashes, No breakdown, No significant lesion Neuro: Normal gait, Normal speech, Strength at 5/5 X4 ext, Normal tone, Sensation intact, grossly intact cranial nerves. Psych/Mental Status: Mental status NL, Mood NL Discharge plan: Continue losartan 100 mg daily Continue metoprolol succinate 100 mg daily Continue hydralazine 50 mg b.i.d. Continue isosorbide mononitrate 30 mg daily Continue furosemide 40 mg daily Follow-up with her PCP in one week Follow-up with ENT as an outpatient Discussed with Dr. Matthew Consults/Reason for consult N/A Operations or Procedures EXAM: XR Chest, 1 View CLINICAL INDICATION: sob TECHNIQUE: Frontal view of the chest. COMPARISON: XY CHEST XRAY 1 VIEW on DOS: 05/26/24, XY CHEST PORTABLE on DOS: 05/23/24, XY CHEST PORTABLE on DOS: 04/09/24, XY CHEST PORTABLE on DOS: 10/01/23, XY CHEST PORTABLE on DOS: 07/20/23 FINDINGS: LUNGS AND PLEURAL SPACES: See below. HEART: Cardiomegaly with mild congestion. MEDIASTINUM: Unremarkable. Normal mediastinal contour. BONES/JOINTS: Unremarkable. No acute fracture. OTHER FINDINGS: . . . .. IMPRESSION: Cardiomegaly with mild congestion. Condition at Discharge: Stable Final Diagnosis/Problems List Dizziness likely due to hypoglycemia and severe anemia Acute on chronic anemia secondary to epistaxis Type 2 diabetes mellitus , HbA1C 5.5( 05/25/24) Acute on Chronic systolic heart failure HFrEF Hypertensive heart disease Dilutional hyponatremia secondary to heart failure YOVANI on CKD stage 3 Hypertensive heart disease History of Angioedema Recurrent history of epistaxis Chronic thrombocytosis; unknown source of cause; could be due to blood loss Discharge Disposition: Home Discharge Instruct/Medications Diet: Cardiac 2g Na,low cholest Activity: No Restrictions, As Tolerated Follow Up/Referral: F/U with her PCP in 1 week F/U with ENT as outpatient Medications: Continue home medications Isosorbide mononitrate 30mg QD Discharge Statement: "Patient was advised to return to the ER or call 911 if any headaches, dizziness, shortness of breath, chest pain, abdominal pain, bleeding, fevers, or worsening of medical condition. Patient was counseled about treatment plan, medications, possible side effects, patientverbalized understanding. All questions were answered to the best of my ability. This discharge took greater then 30 minutes in planning, reviewing documentation, counseling the patient, and discussing with other team members." ASSESSMENT ASSESSMENT Assessment Dizziness likely due to hypoglycemia and severe anemia Acute on chronic anemia secondary to epistaxis Type 2 diabetes mellitus , HbA1C 5.5( 05/25/24) Acute on Chronic systolic heart failure HFrEF Hypertensive heart disease Dilutional hyponatremia secondary to heart failure YOVANI on CKD stage 3 Hypertensive heart disease History of Angioedema Recurrent history of epistaxis Chronic thrombocytosis; unknown source of cause; could be due to blood loss Addendum Addendum Addendum I was physically present for the calle portions of the service provided to patient by THE RESIDENT. I have reviewed the documentation, discussed the case with resident and agree with the resident's documentation except as noted. Also the patient's clinical case was discussed with the patient's nurse. This medical document was created using an electronic medical record system with computerized dictation system. Although this document has been carefully reviewed, there might still be some phonetic and typographical errors. These areas are purely typographical due to imperfections of the software programs, and do not reflect any compromise in the patient's medical care. Late signature. Date of Service: Jul 05, 2024 Billing Provider: ALFONSO MATTHEW MD Common Visit Codes: 80280-IOP/OBS DISCH DAY >30min ALEJANDRO LEIGH RESIDENT Jul 05, 2024 11:29 ALFONSO MATTHEW MD Jul 06, 2024 07:10
[2024-07-05 13:15] VITALS: BP 156/62; PULSE 68; RESP 18; TEMP 98.3; O2SAT 98
== END 2024-07-05 15:07 | disposition home or self-care (01) | DRG 637 ==
LOC: ER 16:24 → OVERFLOW 22:26 → WEST WING 07-03 19:55 → EAST 07-03 21:30
PROVIDERS: ADMIT Student in an Organized Health Care Education/Training Program; ATTEND Student in an Organized Health Care Education/Training Program
PROC: 30233N1 Transfusion of Nonautologous Red Blood Cells into Peripheral Vein, Percutaneous Approach (ICD-10-PCS; principal; 2024-07-03)
DX: E11.649 Type 2 diabetes mellitus with hypoglycemia without coma (principal); I50.23 Acute on chronic systolic (congestive) heart failure; E87.1 Hypo-osmolality and hyponatremia; I13.0 Hypertensive heart and chronic kidney disease with heart failure and stage 1 through stage 4 chronic kidney disease, or unspecified chronic kidney disease; D62 Acute posthemorrhagic anemia; N18.4 Chronic kidney disease, stage 4 (severe); N17.9 Acute kidney failure, unspecified; T78.3XXA Angioneurotic edema, initial encounter; D75.839 Thrombocytosis, unspecified; E11.22 Type 2 diabetes mellitus with diabetic chronic kidney disease; I16.0 Hypertensive urgency; E86.0 Dehydration; R04.0 Epistaxis; E87.5 Hyperkalemia; I25.10 Atherosclerotic heart disease of native coronary artery without angina pectoris; Z79.4 Long term (current) use of insulin; Z79.899 Other long term (current) drug therapy; Y84.8 Other medical procedures as the cause of abnormal reaction of the patient, or of later complication, without mention of misadventure at the time of the procedure; Y92.89 Other specified places as the place of occurrence of the external cause
CPT/HCPCS: 36415; 71045; 80048; 80053; 82962; 83735; 83880; 84484; 85025; 86850; 86870; 86900; 86901; 86902; 86922; G0378; J1815

== ENCOUNTER 2024-07-09 13:13 | Emergency (ER) | payer OTHER, MEDICAID ==
[~2024-07-09] VITALS: Ht 165.1 cm; Wt 73.6 kg
[~2024-07-09 13:13] MED LIST changes: +ISOS1TAB28 PO
--- NOTE | 2024-07-09 14:38 | ED.PDOC ---
History of Present Illness HPI Comments 68 y/o F, with a history of anemia, CAD, CHF, DM, HLD, HTN, and UTI's, presents with c/o dysuria, increased urine frequency, and fever, today. Patient endorses on unprovoked onset of pain whenever she urinates in addition to needing go the bathroom more often than usual for the past 3x days, with additional fever onset, this morning. She comments on pain feeling similar to when she had a UTI in the past. Patient also reports on recent hospital admission for anemia. She denies having any nausea, vomiting, chills, hematuria, or other associated symptoms or modifiers at this time. Chief Complaint: Urinary Time Seen by MD: 14:20 Primary Care Provider: ROSARIO Reviewed Notes: Nurses Notes, Medications, Allergies Allergies: Coded Allergies: Ibuprofen (Verified Allergy, Unknown, 10/03/23) Home Meds Active Scripts Isosorbide Mononitrate (Isosorbide Mononitrate Er) 30 Mg Tab, 1 TAB PO DAILY for 30 Days, #30 TAB 5 Refills Prov:ALEJANDRO LEIGH RESIDENT 07/05/24 B-Complex W/ C & Folic Acid (Nephro-Rio) Tab, 1 TAB PO DAILY for 30 Days, #30 TAB 3 Refills Prov:KERA BOLTON MD 06/03/24 Metoprolol Succinate (Toprol Xl) 50 Mg Tab, 50 MG PO DAILY for 30 Days, #30 TAB 2 Refills Prov:KERA BOLTON MD 06/03/24 Furosemide (Lasix) 40 Mg Tab, 40 MG PO QAM for 30 Days, #30 TAB 3 Refills Prov:KERA BOLTON MD 06/03/24 Pantoprazole Sodium Sesquihydr (Pantoprazole Sodium) 40 Mg Tab, 40 MG PO DAILY for 30 Days, #30 TAB 2 Refills Prov:KERA BOLTON MD 06/03/24 Losartan Potassium (Losartan Potassium) 100 Mg Tab, 100 MG PO DAILY for 30 Days, #30 TAB 2 Refills Prov:KERA BOLTON MD 06/03/24 Empagliflozin (Jardiance) 10 Mg Tab, 10 MG PO DAILY for 30 Days, #30 TAB 2 Refi lls Prov:KERA BOLTON MD 06/03/24 Atorvastatin Calcium (ATORVASTATIN CALCIUM) 20 Mg Tab, 20 MG PO HS for 30 Days, #30 TAB 3 Refills Prov:KERA BOLTON MD 06/03/24 Ferrous Sulfate (Ferrous Sulfate) 325 Mg Tab, 1 TAB PO EVERY OTHER DAY for 30 Days, #15 TAB Prov:LIN MADRIGAL MD 02/28/24 Ergocalciferol (VITAMIN D 12477 UNIT) 50,000 [place], [address] UNIT PO Q7D for 12 Days, #12 CAP Prov:MABEL GUZMAN MD 01/11/23 Empagliflozin (Jardiance) 10 Mg Tab, 10 MG PO QAM for 30 Days, #30 TAB Prov:MABEL GUZMAN MD 01/11/23 Reported Medications Hydralazine Hcl (Hydralazine Hcl) 50 Mg Tab, 100 MG PO BID 10/03/23 Furosemide (Furosemide) 40 Mg Tab, 1 TAB PO DAILY 10/03/23 Finerenone (Kerendia) 10 Mg Tab, 1 TAB PO DAILY 10/01/23 Metoprolol Succinate (Metoprolol Succinate Er) 100 Mg Tab, 1 TAB PO DAILY 10/01/23 Losartan Potassium (Losartan Potassium) 100 Mg Tab, 100 MG PO DAILY for 30 Days, MG 07/12/21 Information Source: Patient Mode of Arrival: Ambulatory Severity: Moderate Timing: Days Duration: Since onset Prehospital treatment: None Past Medical History PAST MEDICAL HISTORY: Anemia, CAD, CHF, DM, High Lipids, HTN, UTI'S Surgical History: , Hernia Repair 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 Family History Family History: No family hx of Cancer, No family hx of DM, Family hx of heart sean Social History Smoker: Non-Smoker Alcohol: Denies ETOH Use Drugs: Denies Drug Use Lives In: Home Constitutional: reports: fever Genitourinary: reports: dysuria, frequency All Other Systems: Reviewed and Negative (negative unless otherwise stated above or in HPI) Physical Exam General Appearance: No Apparent Distress, Normal HEENT: Normal ENT Inspection, Pharynx Normal, TMs Normal Neck: Full Range of Motion, Non-Tender, Normal, Normal Inspection Respiratory: Chest Non-Tender, Lungs Clear, No Accessory Muscle Use, No Respiratory Distress, Normal Breath Sounds Cardiovascular: No Edema, No JVD, No Murmur, No Gallop, Normal Peripheral Pulses, Regular Rate/Rhythm Breast Exam: Deferred Gastrointestinal: No Organomegaly, Non Tender, No Pulsatile Mass, Normal Bowel Sounds, Soft Genitalia: Deferred Pelvic: Deferred Rectal: Deferred Extremities: No calf tenderness, Normal capillary refill, Normal inspection, Normal range of motion, Non-tender, No pedal edema Musculoskeletal : Apperance: Normal Neurologic: Alert, digital media buyer II-XII nml as Tested, No Motor Deficits, Normal Affect, Normal Mood, No Sensory Deficits Cerebellar Function: Normal Reflexes: Normal Skin: Dry, Normal Color, Warm Lymphatic: No Adenopathy Was a procedure done? Was a procedure done?: No Differential Dx Considerations may include: UTI X-Ray, Labs, Meds, VS Vital Signs Date Time Temp Pulse Resp B/P (MAP) Pulse Ox O2 Delivery O2 Flow Rate FiO2 07/09/24 13:28 97.3 78 20 153/46 (81) 96 Lab Test 07/09/24 13:45 Range/Units Urine Color Pending Urine Clarity Pending Urine pH Pending Urine Specific [place] Pending Urine Protein Pending Urine Ketones Pending Urine Blood Pending Urine Nitrite Pending Urine Bilirubin Pending Urine Urobilinogen Pending Urine Leukocyte Esterase Pending Urine RBC Pending Urine Microscopic WBC Pending Urine Squamous Epithelial Cells Pending Urine Bacteria Pending Urine Glucose Pending X-Ray, Labs, Meds, VS Comment This 68-year-old female presents secondary to dysuria urinary frequency similar to previous UTIs. Unfortunately, the patient seems to have eloped prior to being taken. Time of 1ST Reevaluation: 14:50 Reevaluation 1ST: Unchanged Patient Education/Counseling: Diagnosis, Treatment Family Education/Counseling: No Family Present Departure 1 Departure Time of Disposition: 17:54 Impression: Primary Impression: Dysuria Additional Impression: Urinary frequency Disposition: 07 LEFT AWOL/ELOPED Condition: Good Critical Care Note Critical Care Time?: No Stability Stability form required: No Heart Score Heart Score: Heart Score Response (Comments) Value History N/A 0 EKG N/A 0 Age N/A 0 Risk Factors N/A 0 Troponin N/A 0 Total 0 I personally scribed for LOCO COLBERT MD ([email or web address]) on 07/09/24 at 14:38. Electronically submitted by Varun Chris ([email or web address]). LOCO COLBERT MD Jul 09, 2024 14:38
[2024-07-09 18:17] LABS: Urine Bacteria FEW /hpf (None Seen); Urine Blood 1+ /uL (Negative); Urine Clarity Turbid (Clear); Urine Color Colorless (Yellow); Urine Mucus FEW (None Seen); Urine Protein, UAD 3+ (Negative); Urine Specific Gravity 1.009 (1.001-1.035); Urine Squamous Epithelial Cell FEW /hpf (<5); Urine Urobilinogen Normal (Negative); Urine WBC 412 /HPF (0-5); Urine WBC Clumps PRESENT /hpf (None Seen)
[2024-07-09] MEDS ORDERED: CEFD300C2 PO (20:57)
[2024-07-09] MEDS: cefTRIAXone W LIDOCAINE 1 GM IM IM ONE (21:18)
[2024-07-09 21:19] VITALS: BP 132/70; TEMP 99
[2024-07-09 21:20] VITALS: PULSE 85; RESP 19; O2SAT 99
== END 2024-07-09 21:21 | disposition home or self-care (01) ==
LOC: ER 13:13
DX: R30.0 Dysuria (principal); R35.0 Frequency of micturition; I25.10 Atherosclerotic heart disease of native coronary artery without angina pectoris; I11.0 Hypertensive heart disease with heart failure; I50.9 Heart failure, unspecified; E11.9 Type 2 diabetes mellitus without complications; E78.5 Hyperlipidemia, unspecified; R50.9 Fever, unspecified; Z98.890 Other specified postprocedural states; Z88.6 Allergy status to analgesic agent
CPT/HCPCS: 81001; 96372; 99283; J0696

== ENCOUNTER 2025-01-01 17:00 | Inpatient (IN) | payer MEDICARE, MEDICAID ==
[~2025-01-01] VITALS: Ht 167.6 cm; Wt 81.9 kg
[~2025-01-01 17:00] MED LIST changes: +CEFD300C2 PO
--- NOTE | 2025-01-01 17:15 | ED.PDOC ---
SOB-HPI HPI Comments 69-year-old obese female presents with a chief complaint of SOB x 2 weeks. Patient mentions that she has been experiencing SOB for the past 2 weeks and it has been worsening. Patient mentions that she finally came in today due to it being "at its worst". Patient states that she takes Lasix but does not know why. 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 Patient was mildly hypertensive on arrival. 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 History Family History Family History: No family hx of Cancer, No family hx of DM, Family hx of heart sean Social History Smoker: Non-Smoker Alcohol: Denies ETOH Use Drugs: Denies Drug Use Lives In: Home Constitutional: reports: weakness; denies: chills, diaphoresis, fatigue, fever, malaise, sweats, others EENTM: denies: blurred vision, double vision, ear bleeding, ear discharge, ear drainage, ear pain, ear ringing, eye pain, eye redness, hearing loss, mouth pain, mouth swelling, nasal discharge, nose bleeding, nose congestion, nose pain, photophobia, tearing, throat pain, throat swelling, voice changes, others Respiratory: reports: cough, shortness of breath; denies: hemoptysis, orthopnea, SOB at rest, SOB with excertion, stridor, wheezing, others Cardiovascular: denies: chest pain, dizzy spells, diaphoresis, Dyspnea on exertion, edema, irregular heart beat, left arm pain, lightheadedness, palpitations, PND, syncope, others Gastrointestinal: denies: abdomen distended, abdominal pain, blood streaked bowels, constipated, diarrhea, dysphagia, difficulty swallowing, hematemesis, melena, nausea, poor appetite, poor fluid intake, rectal bleeding, rectal pain, vomiting, others Genitourinary: denies: abnormal vagina bleeding, burning, dyspareunia, dysuria, flank pain, frequency, hematuria, incontinence, pain, , vagina discharge, urgency, others Neurological: denies: dizziness, fainting, headache, left sided numbness, left sided weakness, numbness, paresthesia, pre-existing deficit, right sided numbness, right sided weakness, seizure, speech problems, tingling, tremors, weakness, others Musculoskeletal: denies: back pain, gout, joint pain, joint swelling, muscle pain, muscle stiffness, neck pain, others Integumetry: denies: bruises, change in color, change in hair/nails, dryness, laceration, lesions, lumps, rash, wounds, others Allergic/Immunocompromised: denies: Difficulty Healing, Frequent Infections, Hives, Itching, others Hematologic/Lymphatic: denies: anemia, blood clots, easy bleeding, easy bruising, swollen glands, others Endocrine: denies: excessive hunger, excessive sweating, excessive thirst, excessive urination, flushing, intolerance to cold, intolerance to heat, unexplained weight gain, unexplained weight loss, others Psychiatric: denies: anxiety, bipolar disorder, depression, hopeless, panic disorder, schizophrenia, sleepless, suicidal, others All Other Systems: Reviewed and Negative Physical Exam General Appearance: Moderate Distress (Moderate distress due to chest discomfort and shortness a breath.), Normal HEENT: Normal ENT Inspection, Pharynx Normal, TMs Normal Neck: Full Range of Motion, Non-Tender, Normal, Normal Inspection Respiratory: Chest Non-Tender, No Accessory Muscle Use, Other (Patient has patchy rhonchi throughout bilateral lung luna. No signs of respiratory distress.) Cardiovascular: No Edema, No JVD, No Murmur, No Gallop, Normal Peripheral Pulses, Regular Rate/Rhythm Breast Exam: Deferred Gastrointestinal: No Organomegaly, Non Tender, No Pulsatile Mass, Normal Bowel Sounds, Soft Genitalia: Deferred Pelvic: Deferred Rectal: Deferred Extremities: No calf tenderness, Normal capillary refill, Normal inspection, Normal range of motion, Non-tender, No pedal edema Musculoskeletal : Apperance: Normal Neurologic: Alert, No Motor Deficits, Normal Affect, Normal Mood, No Sensory Deficits Cerebellar Function: Normal Reflexes: Normal Skin: Dry, Normal Color, Warm Lymphatic: No Adenopathy Was a procedure done? Was a procedure done?: No Differential Dx Differential Diagnosis: Anxiety, Asthma, Bronchitis, CHF, Pneumonia, Pneumothorax, Pulmonary Embolism, Respiratory Distress X-Ray, Labs, Meds, VS Vital Signs Date Time Temp Pulse Resp B/P (MAP) Pulse Ox O2 Delivery O2 Flow Rate FiO2 01/01/25 21:35 96.3 68 14 139/66 (90) 95 96.3 01/01/25 17:32 24 100 Nasal Cannula* 2 28 01/01/25 17:01 98.1 78 18 162/96 96 98.1 Lab Test 01/01/25 20:35 01/01/25 18:47 01/01/25 17:41 Range/Units Troponin I High Sensitivity 18 15 17 </=34 ng/L White Blood Count 9.2 4.4-10.8 10^3/uL Red Blood Count 3.66 L 4.0-5.20 10^6/uL Hemoglobin 7.0 *L 12.2-16.2 g/dL Hematocrit 23.3 L 36.0-46.0 % Mean Corpuscular Volume 63.6 L 80.0-100.0 fL Mean Corpuscular Hemoglobin 19.2 L 28.0-32.0 pg Mean Corpuscular Hemoglobin Concent 30.2 L 32.0-36.0 g/dL Red Cell Distribution Width 22.3 H 11.8-14.3 % Platelet Count 534 H 140-450 10^3/uL Mean Platelet Volume 6.4 L 6.9-10.8 fL Neutrophils (%) (Auto) 37.0-80.0 % Lymphocytes (%) (Auto) 10.0-50.0 % Monocytes (%) (Auto) 0.0-12.0 % Basophils (%) (Auto) 0.0-2.0 % Neutrophils # (Auto) 1.6-8.6 10 ^3/uL Lymphocytes # (Auto) 0.4-5.4 10 ^3/uL Monocytes # (Auto) 0-1.3 10 ^3/uL Differential Total Cells Counted 100.0 100 Neutrophils % (Manual) 81 H 37.0-80.0 Band Neutrophils % (Manual) 0 Lymphocytes % (Manual) 9 L 10.0-50.0 Monocytes % (Manual) 7 0-12 Eosinophils % (Manual) 3 0-7 Basophils % (Manual) 0 0.0-2.0 Metamyelocytes % (manual) 0 Myelocytes % (Manual) 0 Promyelocytes % (Manual) 0 Blast Cells % (Manual) 0 Reactive Lymphocytes 0 Platelet Estimate Increased Hypochromasia (manual) Marked Anisocytosis (manual) Slight Microcytosis Marked Ovalocytes Few [place] Cells Few Schistocytes Few D-Dimer, Quantitative 3.43 H 0.0-0.49 mg/L FEU Sodium Level 134 L 136-145 mmol/L Potassium Level 3.7 3.5-5.1 mmol/L Chloride Level 103 98-107 mmol/L Carbon Dioxide Level 21 20-31 mmol/L Anion Gap 10 5-15 Blood Urea Nitrogen 33 H 9-23 mg/dL Creatinine 2.14 H 0.550-1.02 mg/dL Glomerular Filtration Rate Calc 24 >90 mL/min BUN/Creatinine Ratio 15.4 10.0-20.0 Serum Glucose 137 H 74-106 mg/dL Calcium Level 8.6 L 8.7-10.4 mg/dL Total Bilirubin 0.6 0.2-1.0 mg/dL Aspartate Amino Transferase (AST) 16 13-40 U/L Alanine Aminotransferase (ALT) 15 7-40 U/L Alkaline Phosphatase 121 H 46-116 U/L B-Type Natriuretic Peptide 2529.21 0-100 pg/mL Total Protein 5.0 L 5.7-8.2 g/dL Albumin 3.2 3.2-4.8 g/dL Current Medications Medications (Trade) Dose Ordered Sig/Yesenia Route Start Time Stop Time Status Last Admin Albuterol (Ventolin Medneb) 5 mg ONCE ONCE NEB 01/01/25 17:15 01/01/25 17:16 DC 01/01/25 17:32 Ipratropium [place] (Atrovent Medneb) 0.5 mg ONCE ONCE NEB 01/01/25 17:15 01/01/25 17:16 DC 01/01/25 17:32 X-Ray, Labs, Meds, VS Comment Multiple studies were pending at time of this note. Of the returns studies, patient revealed a critical anemia, significant acute CHF exacerbation, what appears to be acute on chronic renal concerns as well as an elevated D-dimer. Patient will require a V/Q scan for PE evaluation. Patient has been started empirically on Lovenox. Transfusion has been ordered. Imaging studies revealed pulmonary congestion and probable pneumonia. Patient has been started on antibiotics to address that concern. Patient will be admitted for management of her significant CHF burden, critical anemic concerns, pneumonia and nephrology consultation. Time of 1ST Reevaluation: 22:05 Reevaluation 1ST: Improved Consultation: PCP, Cardiology Patient Education/Counseling: Diagnosis, Treatment, Need For Follow Up Family Education/Counseling: Diagnosis, Treatment, No Family Present SEPSIS Sepsis Screen Recent Procedure: No On Antibiotic Therapy: No Respiratory Rate >20: No Heart Rate >90: No Temp<36 C (96.8 F) or >38.3 C: No SBP <90 or MAP <65 mmHG: No New Acute Mental Status Change: No Is the patient on CPAP, BIPAP,: No Physician Orders Chest Portable (01/01/25 17:10) Urinalysis (01/01/25 17:10) Heplock Iv (01/01/25 17:10) Electrocardigram (01/01/25 17:10) Azithromycin 500mg/ 250ml (Zithromax 50 (01/01/25 22:00) Vital Signs Date Time Temp Pulse Resp B/P (MAP) Pulse Ox O2 Delivery O2 Flow Rate FiO2 01/01/25 21:35 96.3 68 14 139/66 (90) 95 96.3 01/01/25 17:32 24 100 Nasal Cannula* 2 28 01/01/25 17:01 98.1 78 18 162/96 96 98.1 Laboratory Tests Test 01/01/25 17:41 White Blood Count 9.2 10^3/uL (4.4-10.8) Medications Medications Dose Ordered Sig/Yesenia Route Start Time Stop Time Status Last Admin Dose Admin Albuterol 5 mg ONCE ONCE NEB 01/01/25 17:15 01/01/25 17:16 DC 01/01/25 17:32 Ipratropium [place] 0.5 mg ONCE ONCE NEB 01/01/25 17:15 01/01/25 17:16 DC 01/01/25 17:32 Departure 1 Departure Time of Disposition: 22:05 Impression: Primary Impression: Acute exacerbation of CHF (congestive heart failure) Additional Impressions: Pneumonia Acute on chronic renal failure Elevated d-dimer Anemia Disposition: ADMITTED INPATIENT Condition: Fair Discharged With: Self Critical Care Note Critical Care Time?: No Stability Stability form required: No Heart Score Heart Score: Heart Score Response (Comments) Value History N/A 0 EKG N/A 0 Age N/A 0 Risk Factors N/A 0 Troponin N/A 0 Total 0 I personally scribed for JALIL STARR PAC ([email or web address]) on 01/01/25 at 17:15. Electronically submitted by Kendall Bain ([email or web address]). JALIL STARR PAC Jan 01, 2025 17:15
[2025-01-01] MEDS: ALBUTEROL SULF 2.5 MG/0.5ML(0.5%) NEB SOLN NEB ONE (17:32)
[2025-01-01] MEDS: IPRATROPIUM BROM 0.5 MG/2.5ML INH SOL NEB ONE (17:32)
[2025-01-01 17:54] LABS: Hematocrit 23.3 % (36.0-46.0); Mean Corpuscular Hemoglobin 19.2 pg (28.0-32.0); Mean Corpuscular Volume 63.6 fL (80.0-100.0)
[2025-01-01 18:07] LABS: Alanine Aminotransferase 15 U/L (7-40); Carbon Dioxide 21 mmol/L (20-31); Chloride 103 mmol/L (98-107)
[2025-01-01 18:08] LABS: Albumin 3.2 g/dL (3.2-4.8); Alkaline Phosphatase 121 U/L (46-116); Anion Gap 10 (5-15); BUN/Creatinine Ratio 15.4 (10.0-20.0); Bilirubin, Total 0.6 mg/dL (0.2-1.0); Blood Urea Nitrogen 33 mg/dL (9-23); Calcium 8.6 mg/dL (8.7-10.4); Glucose 137 mg/dL (74-106); Potassium 3.7 mmol/L (3.5-5.1); Sodium 134 mmol/L (136-145); Total Protein 5.0 g/dL (5.7-8.2)
[2025-01-01 18:28] LABS: Hemoglobin 7.0 g/dL (12.2-16.2)
[2025-01-01 19:46] LABS: Total Cells Counted 100.0 (100)
[2025-01-01 19:47] LABS: Anisocytosis Slight; Ovalocytes FEW
--- NOTE | 2025-01-01 20:47 | DVH ---
CHEST RADIOGRAPH Indication: Shortness of breath Technique: Single frontal view of the chest was obtained Comparison: XY CHEST PORTABLE on DOS: 07/02/24, XY CHEST XRAY 1 VIEW on DOS: 05/26/24, XY CHEST PORTABL E on DOS: 05/23/24 FINDINGS: Lines and Tubes: None Lungs: Increased interstitial markings in the perihilar areas and throughout the right chest. Pleura: No effusion. No pneumothorax. Cardiomediastinal contours: Cardiac size upper limits of normal. Bones: No acute osseous abnormality. IMPRESSION: 1. Congestive failure or pneumonia are both in the differential.
[2025-01-01] MEDS ORDERED: MORPHINE SULFATE INJ 2 MG/ml SYRG IV PRN (22:45)
[2025-01-01] MEDS ORDERED: DOCUSATE SOD 100 MG CAP PO PRN (22:45)
[2025-01-01] MEDS ORDERED: DEXTROSE (50%) 50ML SYRG IV PRN (22:45)
[2025-01-01] MEDS ORDERED: NITROGLYCERIN 0.4 MG SL TAB SL PRN (22:45)
[2025-01-01] MEDS ORDERED: ALBUTEROL SULF 2.5 MG/0.5ML(0.5%) NEB SOLN NEB PRN (22:45)
[2025-01-01] MEDS ORDERED: HYDROcodone-ACET 5/325MG TAB PO PRN (22:45)
[2025-01-01] MEDS ORDERED: ACETAMINOPHEN 325 MG TAB PO PRN (22:45)
[2025-01-01] MEDS ORDERED: ONDANSETRON HCL 4 MG/2 ML VIAL IV PRN (22:45)
[2025-01-01] MEDS ORDERED: IPRATROPIUM BROM 0.5 MG/2.5ML INH SOL NEB PRN (22:45)
--- NOTE | 2025-01-01 23:18 | DVHHP2 ---
History of Present Illness Reason for Visit: Acute exacerbation of CHF (congestive heart failure) History of Present Illness The patient is a 69-year-old female morbidly obese with past medical history of anemia, Coronary artery disease, CHF, DM, hyperlipidemia, UTIs, and hypertension who presented to [facility] ED with complaint of shortness of breaths for the past 2 weeks. Patient reports she has been experiencing shortness of breaths, associated with cough, increased work of breathing, getting worse that prompted this visit. Patient reports not currently seen by Cardiology due to insurance purposes. Patient was seen and evaluated in the ED, laboratory data shows WBC 9.2, hemoglobin 7.0, hematocrit 23.3, platelets 534, sodium 134, potassium 3.7, BUN 33, creatinine 2.14, glucose 137, calcium 8.6, BNP 2529.21, protein 5.0, D-dimer 3.43, troponin 18, blood pressure 139/66, pulse 68, temperature 97.0 F, O2 saturation 99% on oxygen. Chest x-ray revealing congestive failure or pneumonia. Patient was started on IV Lasix, given IV antibiotic regimen azithromycin, please see medication orders section in the computer. On my assessment, patient denied chest pain, no headache, no dizziness, no shortness of breath, no diaphoresis, no diarrhea, no nausea, no vomiting, no fever, no chills. Patient was admitted for further evaluation and medical management. Past Medical History Anemia, CAD, CHF, DM, High Lipids, HTN, UTI'S Past Surgical History , Hernia Repair Family History Reviewed, noncontributory to the management of this case. Past Social History The patient lives at home, denies smoking, alcohol or illicit drugs abuse. Review of Systems Constitutional: Yes: Weakness; No: Fever, Chills, Sweats, Malaise, Other Eyes: No: Pain, Vision change, Conjunctivae inflammation, Eyelid inflammation, Other, Redness ENT: No: Ear pain, Ear discharge, Nose pain, Nose discharge, Nose congestion, Mouth pain, Mouth swelling, Throat pain, Throat swelling, Other Respiratory: Cough, Shortness of breath; No: Dry, SOB with excertion, Wheezing, Hemoptysis, Pleuritic Pain, Sputum, Wheezing, Other Cardiovascular: No: Chest Pain, Palpitations, Orthopnea, Paroxysmal Noc. Dyspnea, Edema, Lt Headedness, Other Gastrointestinal: No: Nausea, Vomiting, Abdominal Pain, Diarrhea, Constipation, Melena, Hematochezia, Other Genitourinary: No Dysuria, No Frequency, No Incontinence, No Hematuria, No Retention, No Other Musculoskeletal: No: other, neck pain, shoulder pain, arm pain, back pain, hand pain, leg pain, foot pain Skin: No: Rash, Lesions, Jaundice, Bruising, Other Neurological: No: Weakness, Numbness, Incoordination, Change in speech, Confusion, Seizures, Other Allergies: Coded Allergies: Ibuprofen (Verified Allergy, Unknown, 10/03/23) Exam Vital Signs Vital Signs Date Time Temp Pulse Resp B/P (MAP) Pulse Ox O2 Delivery O2 Flow Rate FiO2 01/01/25 21:35 96.3 68 14 139/66 (90) 95 96.3 01/01/25 17:32 Nasal Cannula* 2 28 General Appearance: Alert, Oriented X3, Cooperative, No acute distress HEENT: Atraumatic, PERRLA, EOMI, Mucous membr. moist/pink Respiratory: Normal air movement Cardiovascular: Regular rate, Normal S1, Normal S2, No murmurs Abdominal: Normal bowel sounds, Soft, No tenderness, No hepatospenomegaly, No masses Extremities: No clubbing, No cyanosis, No edema, Normal pulses, No tenderness/swelling Skin: No rashes, No breakdown, No significant lesion Neuro: Normal speech, Normal tone, Sensation intact, Cranial nerves 3-12 NL, Reflexes 2+, Other (Generalized weakness) Psych/Mental Status: Mental status NL, Mood NL Labs/Xrays Labs Test 01/01/25 22:00 01/01/25 20:35 01/01/25 17:41 Range/Units Troponin I High Sensitivity 18 </=34 ng/L White Blood Count 9.2 4.4-10.8 10^3/uL Red Blood Count 3.66 L 4.0-5.20 10^6/uL Hemoglobin 7.0 *L 12.2-16.2 g/dL Hematocrit 23.3 L 36.0-46.0 % Mean Corpuscular Volume 63.6 L 80.0-100.0 fL Mean Corpuscular Hemoglobin 19.2 L 28.0-32.0 pg Mean Corpuscular Hemoglobin Concent 30.2 L 32.0-36.0 g/dL Red Cell Distribution Width 22.3 H 11.8-14.3 % Platelet Count 534 H 140-450 10^3/uL Mean Platelet Volume 6.4 L 6.9-10.8 fL Neutrophils (%) (Auto) 37.0-80.0 % Lymphocytes (%) (Auto) 10.0-50.0 % Monocytes (%) (Auto) 0.0-12.0 % Basophils (%) (Auto) 0.0-2.0 % Neutrophils # (Auto) 1.6-8.6 10 ^3/uL Lymphocytes # (Auto) 0.4-5.4 10 ^3/uL Monocytes # (Auto) 0-1.3 10 ^3/uL Differential Total Cells Counted 100.0 100 Neutrophils % (Manual) 81 H 37.0-80.0 Band Neutrophils % (Manual) 0 Lymphocytes % (Manual) 9 L 10.0-50.0 Monocytes % (Manual) 7 0-12 Eosinophils % (Manual) 3 0-7 Basophils % (Manual) 0 0.0-2.0 Metamyelocytes % (manual) 0 Myelocytes % (Manual) 0 Promyelocytes % (Manual) 0 Blast Cells % (Manual) 0 Reactive Lymphocytes 0 Platelet Estimate Increased Hypochromasia (manual) Marked Anisocytosis (manual) Slight Microcytosis Marked Ovalocytes Few [place] Cells Few Schistocytes Few D-Dimer, Quantitative 3.43 H 0.0-0.49 mg/L FEU Sodium Level 134 L 136-145 mmol/L Potassium Level 3.7 3.5-5.1 mmol/L Chloride Level 103 98-107 mmol/L Carbon Dioxide Level 21 20-31 mmol/L Anion Gap 10 5-15 Blood Urea Nitrogen 33 H 9-23 mg/dL Creatinine 2.14 H 0.550-1.02 mg/dL Glomerular Filtration Rate Calc 24 >90 mL/min BUN/Creatinine Ratio 15.4 10.0-20.0 Serum Glucose 137 H 74-106 mg/dL Calcium Level 8.6 L 8.7-10.4 mg/dL Total Bilirubin 0.6 0.2-1.0 mg/dL Aspartate Amino Transferase (AST) 16 13-40 U/L Alanine Aminotransferase (ALT) 15 7-40 U/L Alkaline Phosphatase 121 H 46-116 U/L B-Type Natriuretic Peptide 2529.21 0-100 pg/mL Total Protein 5.0 L 5.7-8.2 g/dL Albumin 3.2 3.2-4.8 g/dL PATIENT: ALISTAIR CARDOZACCT: [id number] UNIT: [id number] : 1955 LOC: ER ROOM / BED: / AGE / SEX: 69 / F ADM STATUS: REG ER SERVICE 1710 ORDERING PHYSICIAN: JALIL STARR PAC PROCEDURE(s): CXRP - CHEST PORTABLE REASON: Shortness of breath ORDER NUMBER(s): [id number], ACCESSION NUMBER(s): [id number] CHEST RADIOGRAPH Indication: Shortness of breath Technique: Single frontal view of the chest was obtained Comparison: XY CHEST PORTABLE on DOS: 07/02/24, XY CHEST XRAY 1 VIEW on DOS: 05/26/24, XY CHEST PORTABLE on DOS: 05/23/24 FINDINGS: Lines and Tubes: None Lungs: Increased interstitial markings in the perihilar areas and throughout the right chest. Pleura: No effusion. No pneumothorax. Cardiomediastinal contours: Cardiac size upper limits of normal. Bones: No acute osseous abnormality. IMPRESSION: 1. Congestive failure or pneumonia are both in the differential. SEPSIS Sepsis Screen Date sepsis recognized/suspect: Jan 01, 2025 Time Sepsis recognized/suspect: 1708 Recent Procedure: No On Antibiotic Therapy: No Respiratory Rate >20: No Heart Rate >90: No Temp<36 C (96.8 F) or >38.3 C: No SBP <90 or MAP <65 mmHG: No New Acute Mental Status Change: No Is the patient on CPAP, BIPAP,: No Physician Orders Chest Portable (01/01/25 17:10) Heplock Iv (01/01/25 17:10) Electrocardigram (01/01/25 17:10) Azithromycin 500mg/ 250ml (Zithromax 50 (01/01/25 22:00) Obtain Consent For: (01/01/25 22:09) Packedcell-Noactive Bleeding (01/01/25 22:09) Type And Screen (01/01/25 22:09) Obtain Consent For Anesthesia (01/01/25 22:09) Urinalysis W/Out Microscopic (01/01/25 22:00) Nm Vq Scan (01/01/25 22:42) Albuterol Medneb (Ventolin Medneb) (01/01/25 22:45) Ipratropium Medneb (Atrovent Medneb) (01/01/25 22:45) Azithromycin 500mg/ 250ml (Zithromax 50 (01/02/25 10:00) Heparin Sodium (Porcine) (01/02/25 10:00) Furosemide Injection (Lasix Injection) (01/02/25 10:00) Famotidine Injection (Pepcid Injection) (01/02/25 10:00) Carvedilol Tablet (Coreg Tablet) (01/02/25 10:00) Hydralazine Injection (Apresoline Inject (01/01/25 22:45) Consistent Carb(Ccho)Diabetes (01/02/25 Breakfast) Glucose Blood (Accu-Chek Comfort Curve T (01/02/25 07:00) Insulin R (Human) (Insulin R) (01/02/25 07:00) Dextrose 50% Syringe (01/01/25 22:45) Admit (01/01/25 22:42) Allergies (01/01/25 22:42) Code Status (01/01/25 22:42) Sodium Chloride Lock (Saline Lock Ns) (01/02/25 06:00) Oxygen Per Hour (01/01/25 22:42) Hydrocodone-Acet 5/325mg Tab ([place] 5/32 (01/01/25 22:45) Ondansetron Hcl (Zofran) (01/01/25 22:45) Docusate Sodium Capsule (Colace Capsule) (01/01/25 22:45) Fall Risk Precautions In Place QSHIFT (01/01/25 22:42) Complete Blood Count (01/02/25 04:00) Comprehensive Metabolic Panel (01/02/25 04:00) Condition: Serious (01/01/25 22:42) Acetaminophen Tablet (Tylenol Tablet) (01/01/25 22:45) Maintain Bed Rest (01/01/25 22:42) Sequential Compression Device (01/01/25 ) Nitroglycerin Sublingual (Ntrostat Subli (01/01/25 22:45) Morphine Sulfate Injection (01/01/25 22:45) Stat Ekg For Chest Pain (01/01/25 22:42) Notify Md Of Changes From Base (01/01/25 22:42) Automotive Diagnostic Technician For 24 Hours (01/01/25 22:42) Emergency Dysrhythmia Protocol (01/01/25 22:42) Rhythm Strips Once Every Shift (01/01/25 22:42) Oxygen By Nasal Cannula (01/01/25 22:42) Vital Signs Date Time Temp Pulse Resp B/P (MAP) Pulse Ox O2 Delivery O2 Flow Rate FiO2 01/01/25 21:35 96.3 68 14 139/66 (90) 95 96.3 01/01/25 17:32 24 100 Nasal Cannula* 2 28 01/01/25 17:01 98.1 78 18 162/96 96 98.1 Laboratory Tests Test 01/01/25 17:41 White Blood Count 9.2 10^3/uL (4.4-10.8) Medications Medications Dose Ordered Sig/Yesenia Route Start Time Stop Time Status Last Admin Dose Admin Albuterol 5 mg ONCE ONCE NEB 01/01/25 17:15 01/01/25 17:16 DC 01/01/25 17:32 5 MG Ipratropium [place] 0.5 mg ONCE ONCE NEB 01/01/25 17:15 01/01/25 17:16 DC 01/01/25 17:32 0.5 MG Assessment/Plan Assessment/Plan Acute exacerbation of CHF (congestive heart failure) Elevated d-dimer Severe anemia Acute on chronic renal failure Generalized weakness Pulmonary vascular congestion Pneumonia, unspecified organism Plan 1. Admit to telemetry unit 2. Breathing treatment 3. Pain control management 4. IV antibiotic management 5. Management of fluids and electrolytes 6. Consultation for Cardiology 7. Diagnostic test chest x-ray 8. DVT prophylaxis on SCDs 9. Repeat labs CBC, CMP in a.m. 10. Home medication reviewed and reconciled 11. Continue with current medical management 12. Treatment plan discussed with patient and RN. Patient verbalized understanding. Plan discussed with: Patient, Other (RN) My Orders Orders - LIBBY LONG DNP Procedure Category Date Status Time Nm Vq Scan NM 01/01/25 Logged 22:42 Albuterol Medneb PHA 01/01/25 Logged (Ventolin Medneb) 22:45 Ipratropium Medneb PHA 01/01/25 Logged (Atrovent Medneb) 22:45 Azithromycin 500mg/ PHA 01/02/25 Logged 250ml (Zithromax 50 10:00 Heparin Sodium PHA 01/02/25 Logged (Porcine) 10:00 Furosemide Injection PHA 01/02/25 Logged (Lasix Injection) 10:00 Famotidine Injection PHA 01/02/25 Logged (Pepcid Injection) 10:00 Carvedilol Tablet PHA 01/02/25 Logged (Coreg Tablet) 10:00 Hydralazine Injection PHA 01/01/25 Logged (Apresoline Inject 22:45 Consistent DIET 01/02/25 Transmitted Carb(Ccho)Diabetes Breakfast Glucose Blood PHA 01/02/25 Logged (Accu-Chek Comfort 07:00 Insulin R (Human) PHA 01/02/25 Logged (Insulin R) 07:00 Dextrose 50% Syringe PHA 01/01/25 Logged 22:45 Admit ADMIT 01/01/25 Transmitted 22:42 Allergies ASIF 01/01/25 In Process 22:42 Code Status CODE 01/01/25 Transmitted 22:42 Sodium Chloride Lock PHA 01/02/25 Logged (Saline Lock Ns) 06:00 Oxygen Per Hour RT 01/01/25 Transmitted 22:42 Hydrocodone-Acet PHA 01/01/25 Logged 5/325mg Tab ([place] 22:45 Ondansetron Hcl PHA 01/01/25 Logged (Zofran) 22:45 Docusate Sodium PHA 01/01/25 Logged Capsule (Colace 22:45 Fall Risk Precautions ASIF 01/01/[address] 22:42 Complete Blood Count LAB 01/02/25 Verified 04:00 Comprehensive LAB 01/02/25 Verified Metabolic Panel 04:00 Condition: Serious ASIF 01/01/25 In Process 22:42 Acetaminophen Tablet PHA 01/01/25 Logged (Tylenol Tablet) 22:45 Maintain Bed Rest ASIF 01/01/25 In Process 22:42 Sequential ASIF 01/01/25 In Process Compression Device Nitroglycerin PHA 01/01/25 Logged Sublingual (Ntrostat 22:45 Morphine Sulfate PHA 01/01/25 Logged Injection 22:45 Stat Ekg For Chest ASIF 01/01/25 In Process Pain 22:42 Notify Md Of Changes ASIF 01/01/25 In Process From Base 22:42 Autom[address] For [facility] 01/01/25 In Process 24 Hours 22:[address] [facility] 01/01/25 In Process Protocol 22:[address] [facility] 01/01/25 In Process Every Shift 22:42 Oxygen By Nasal RT 01/01/25 Transmitted Cannula 22:42 Problem List: (1) Acute exacerbation of CHF (congestive heart failure) (2) Elevated d-dimer (3) Severe anemia (4) Acute on chronic renal failure (5) Generalized weakness (6) Pulmonary vascular congestion (7) Pneumonia, unspecified organism Date of Service: Jan 01, 2025 Billing Provider: LIBBY LONG DNP Common Visit Codes: [id number] INP/OBS CARE (HIGH) LIBBY LONG DNP Jan 01, 2025 23:18
[2025-01-01 23:27] LABS: Urine Protein, UAD 2+ (Negative)
[2025-01-01 23:28] VITALS: BP 139/66; PULSE 76; RESP 16; TEMP 96.3; O2SAT 98
[2025-01-02] VITALS (12 sets, daily range): BP systolic 148–158; BP diastolic 60–76; PULSE 62–74; RESP 12–25; TEMP 97.6–98.3; O2SAT 96–99
[2025-01-02] MEDS: ENOXAPARIN SOD 40 MG/0.4 ML SYRINGE SC ONE (01:45)
[2025-01-02] MEDS: FUROSEMIDE 100 MG/10ML VIAL IV ONE (02:16)
[2025-01-02] MEDS: AZITHROMYCIN 500MG/ 250ML 250 ML IV ONE (02:17)
[2025-01-02 04:07] LABS: Hematocrit 23.2 % (36.0-46.0); Mean Corpuscular Hemoglobin 19.3 pg (28.0-32.0); Mean Corpuscular Volume 64.1 fL (80.0-100.0)
[2025-01-02 04:22] LABS: Hemoglobin 7.0 g/dL (12.2-16.2)
[2025-01-02 04:30] LABS: Alanine Aminotransferase 14 U/L (7-40); Albumin 3.4 g/dL (3.2-4.8); Anion Gap 11 (5-15); BUN/Creatinine Ratio 13.8 (10.0-20.0); Bilirubin, Total 0.5 mg/dL (0.2-1.0); Calcium 8.8 mg/dL (8.7-10.4); Chloride 104 mmol/L (98-107); Potassium 3.8 mmol/L (3.5-5.1)
[2025-01-02 04:31] LABS: Alkaline Phosphatase 125 U/L (46-116); Blood Urea Nitrogen 32 mg/dL (9-23); Carbon Dioxide 20 mmol/L (20-31); Glucose 113 mg/dL (74-106); Sodium 135 mmol/L (136-145); Total Protein 5.5 g/dL (5.7-8.2)
[2025-01-02 05:39] LABS: Total Cells Counted 100.0 (100)
[2025-01-02] MEDS: ACCU-CHEK COMFORT CURVE STRIP VI SCH (06:24)
[2025-01-02] MEDS: SODIUM CHLOR 0.9% PF (SALINE LOCK) 10ML VIAL/SYR IV SCH (06:24)
[2025-01-02] MEDS: InsuLIN REG 1unit/0.01ml Soln (100units/ml) SC SCH (07:00)
[2025-01-02] MEDS: FUROSEMIDE 40 MG/4 ML VIAL IV SCH ×2 (11:09→20:15)
[2025-01-02] MEDS: FAMOTIDINE (10MG/ML) 2ML VL IV SCH (11:11)
[2025-01-02] MEDS: HEPARIN SODIUM (PORCINE) 5000 UNITS/ML 1ML VIAL SC SCH (11:11)
[2025-01-02] MEDS: CARVEDILOL 3.125 MG TAB PO SCH (11:12)
[2025-01-02 13:17] LABS: Iron 15.0 ug/dL (50-170); Total Iron Binding Capacity 337.0 ug/dL (250-425)
--- NOTE | 2025-01-02 13:21 | DVHPN2 ---
Subjective Patient continues to report having shortness of breath Reviewed: Care Plan, H&P, Labs, Medications Changes from previous H/P or p: No Changes Eyes: No Pain, No Vision change, No Conjunctivae inflammation, No Eyelid inflammation, No Other, No Redness ENT: No Ear pain, No Ear discharge, No Nose pain, No Nose discharge, No Nose congestion, No Mouth pain, No Mouth swelling, No Throat pain, No Throat swelling, No Other Cardiovascular: No Chest Pain, No Palpitations, No Orthopnea, No Paroxysmal Noc. Dyspnea, No Edema, No Lt Headedness, No Other Respiratory: Cough; No Dry; Shortness of breath; No SOB with excertion, No Wheezing, No Hemoptysis, No Pleuritic Pain, No Sputum, No Other Gastrointestinal: No Nausea, No Vomiting, No Abdominal Pain, No Diarrhea, No Constipation, No Melena, No Hematochezia, No Other Genitourinary: No Dysuria, No Frequency, No Incontinence, No Hematuria, No Retention, No Other Musculoskeletal: No other, No neck pain, No shoulder pain, No arm pain, No back pain, No hand pain, No leg pain, No foot pain Skin: No Rash, No Lesions, No Jaundice, No Bruising, No Other Objective Vitals Vital Signs Date Time Temp Pulse Resp B/P (MAP) Pulse Ox O2 Delivery O2 Flow Rate FiO2 01/02/25 12:48 98.3 68 14 152/66 98.3 01/02/25 11:00 94 01/02/25 07:30 Room Air* 0 21 General Appearance: Alert, Oriented X3, Cooperative, mild distress Cardiovascular: Normal S1, Normal S2 Musculoskeletal: Normal sensory function, Normal motor function Skin: Other (Plus two generalized edema to lower extremity with noted ecchymosis and scabbing from patient's scratching area) Psych/Mental Status: Mental status NL, Mood NL Medications Current Medications Medications Dose Ordered Sig/Yesenia Route Start Time Stop Time Status Last Admin Dose Admin Albuterol 2.5 mg Q4HPRN PRN NEB 01/01/25 22:45 Ipratropium [place] 0.5 mg Q4HPRN PRN NEB 01/01/25 22:45 Azithromycin 250 ml @ 125 mls/hr Q24H IV 01/02/25 22:00 Heparin Sodium (Porcine) 5,000 units Q12HR SC 01/02/25 10:00 01/02/25 11:11 5,000 UNITS Famotidine 20 mg Q12HR IV 01/02/25 10:00 01/02/25 11:11 20 MG Carvedilol 3.125 mg Q12HR PO 01/02/25 10:00 01/02/25 11:12 3.125 MG Hydralazine HCl 10 mg Q6HP PRN IV 01/01/25 22:45 Diagnostic Test (Pha) 1 strip ACHS 01/02/25 07:00 01/02/25 11:26 1 STRIP Insulin Human Regular ACHS SC 01/02/25 07:00 Dextrose 50 ml UD PRN IV 01/01/25 22:45 Sodium Chloride 10 ml Q8HR IV 01/02/25 06:00 01/02/25 06:24 10 ML Acetaminophen/ Hydrocodone Bitart 1 tab Q4HP PRN PO 01/01/25 22:45 Ondansetron HCl 4 mg Q4HP PRN IV 01/01/25 22:45 Docusate Sodium 100 mg BIDPRN PRN PO 01/01/25 22:45 Acetaminophen 650 mg Q6HP PRN PO 01/01/25 22:45 Nitroglycerin 0.4 mg Q5MINP PRN SL 01/01/25 22:45 Morphine Sulfate 2 mg Q30M PRN IV 01/01/25 22:45 Atorvastatin Calcium 10 mg HS PO 01/02/25 22:00 Empaglifozin 10 mg DAILY PO 01/02/25 12:30 Furosemide 40 mg BIDD IV 01/02/25 18:00 Laboratory Results Laboratory Tests 01/02/25 03:20 Chemistry Test 01/01/25 17:41 01/02/25 03:20 Albumin 3.2 g/dL (3.2-4.8) 3.4 g/dL (3.2-4.8) Calcium Level 8.6 mg/dL (8.7-10.4) L 8.8 mg/dL (8.7-10.4) Total Protein 5.0 g/dL (5.7-8.2) L 5.5 g/dL (5.7-8.2) L Coagulation Test 01/01/25 17:41 D-Dimer, Quantitative 3.43 mg/L FEU (0.0-0.49) H Cardiac Markers Test 01/01/25 17:41 B-Type Natriuretic Peptide 2529.21 pg/mL (0-100) LFT Test 01/01/25 17:41 01/02/25 03:20 Alanine Aminotransferase (ALT) 15 U/L (7-40) 14 U/L (7-40) Alkaline Phosphatase 121 U/L (46-116) H 125 U/L (46-116) H Aspartate Amino Transferase (AST) 16 U/L (13-40) 15 U/L (13-40) Total Bilirubin 0.6 mg/dL (0.2-1.0) 0.5 mg/dL (0.2-1.0) Urinalysis Test 01/01/25 22:00 Urine Color Yellow (Yellow) Urine Clarity Clear (Clear) Urine pH 6.0 (5.0-9.0) Urine Specific [place] 1.013 (1.001-1.035) Urine Protein 2+ (Negative) H Urine Ketones Negative (Negative) Urine Blood Negative /uL (Negative) Urine Nitrite Negative (Negative) Urine Bilirubin Negative (Negative) Urine Urobilinogen Normal mg/dL (Negative) Urine Leukocyte Esterase Negative /uL (Negative) Urine Glucose Trace mg/dL (Normal) H Labs and/or images reviewed: Labs reviewed by me, Image(s) reviewed by me Assessment/Plan Assessment/Plan Impression: -acute decompensated systolic heart failure, HFrEF -medication noncompliance -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 CKD stage IIIB -diabetes mellitus -history of scabies Plan: -PRBC transfusion x2 -IV diuresis -start guideline directed medical therapy while holding Reji/Arb and spironolactone due to renal function -regular insulin sliding scale -iron panel -repeat echocardiogram -repeat labs and chest x-ray in a.m. Total time spent with patient discussing and formulating plan of care: 35 minutes. This medical document was created using an electronic medical record system with [employer] dictation system. Although this document has been carefully reviewed, there may still be some phonetic and typographical errors. These areas are purely typographical due to imperfections of the software programs, and do not reflect any compromise in the patient's medical care. Plan discussed with: Patient, Other (RN) My Orders Orders - OFE TORRES NP Procedure Category Date Status Time Echo 2d Mode Cardiac US 01/02/25 Logged DOP 12:24 Empagliflozin PHA 01/02/25 In Process (Jardiance) 12:30 Furosemide Injection PHA 01/02/25 In Process (Lasix Injection) 18:00 Basic Metabolic Panel LAB 01/03/25 Verified 04:00 Complete Blood Count LAB 01/03/25 Verified 04:00 Iron Panel LAB 01/02/25 In Process 12:53 Furosemide Injection PHA 01/02/25 Verified (Lasix Injection) 13:15 Magnesium LAB 01/02/25 Verified 13:14 Date of Service: Jan 02, 2025 Billing Provider: OFE TORRES NP Common Visit Codes: [id number] INP/OBS CARE(HIGH) OFE TORRES NP Jan 02, 2025 13:21
[2025-01-02] MEDS: EMPAGLIFLOZIN 10 MG TAB PO SCH (14:33)
[2025-01-02] MEDS: FUROSEMIDE 40 MG/4 ML VIAL IV ONE (16:39)
[2025-01-02] MEDS ORDERED: SITA50TA PO (18:32)
[2025-01-02] MEDS: ATORVASTATIN 20 MG TAB PO SCH (22:13)
[2025-01-02] MEDS: AZITHROMYCIN 500MG/ 250ML 250 ML IV SCH (22:39)
[2025-01-03] VITALS (16 sets, daily range): BP systolic 146–168; BP diastolic 59–83; PULSE 61–77; RESP 15–18; TEMP 97.4–97.9; O2SAT 95–98
--- NOTE | 2025-01-03 10:17 | DVHSR ---
APPROVED REPORT EXAM: Two-dimensional and M-mode echocardiogram with Doppler and color Doppler. Blood Pressure: 136/72 mmHg INDICATION decompensated ef RISK FACTORS Height: 5'4, Weight: 165 DIMENSIONS LVDd5.0 (3.8-5.7cm)LA (2D) (1.9-4.0cm)Aortic Root2.6 (2.0-3.7cm) LVDs4.0 (2.5-4.0cm)LA (MM) (1.9-4.0cm)Aortic Cusp Exc1.4 (1.5-2.0cm) EF (%) 40.0 (55-70%)Rt. Atrium (1.9-4.0cm)Asc. Aorta3.0 cm IVSd1.1 (0.7-1.1cm)RV (D) (1.8-2.4cm) PWd1.4 (0.7-1.1cm) Mitral Valve MitralMitral Stenosis E wave1.47m/sMV Mean GR.4mmHg A wave1.36m/sMV Peak GR.129mmHg E/A ratio1.12D MVA2.51cm2 DECEL [id number] 1/2 Mixo97dm IVRTmsDop MVA3.65cm2 Aortic Valve Aortic ValveAortic Stenosis V10.85m/Ericka Mean GR.3mmHg V21.28m/Ericka Peak GR.7mmHg LVOT Diameter1.9 (1.8-2.4cm)Doppler AVA1.88cm2 Pulmonic Valve V21.13m/s Tricuspid Valve TR Velocity3.30m/s [id number] Other Information Technically limited study due to body habitus.patient position. Conclusion lvef 30% severe systolic HF moderate LVH severe mitral regurg moderate mitral stenosis, mean gradient of 4 mmhg biatrial enlargement
--- NOTE | 2025-01-03 10:27 | DVHPN2 ---
Subjective Patient reports that shortness of breath has improved Reviewed: Care Plan, H&P, Labs, Medications Changes from previous H/P or p: No Changes Eyes: No Pain, No Vision change, No Conjunctivae inflammation, No Eyelid inflammation, No Other, No Redness ENT: No Ear pain, No Ear discharge, No Nose pain, No Nose discharge, No Nose congestion, No Mouth pain, No Mouth swelling, No Throat pain, No Throat swelling, No Other Cardiovascular: No Chest Pain, No Palpitations, No Orthopnea, No Paroxysmal Noc. Dyspnea, No Edema, No Lt Headedness, No Other Respiratory: Cough; No Dry; Shortness of breath; No SOB with excertion, No Wheezing, No Hemoptysis, No Pleuritic Pain, No Sputum, No Other Gastrointestinal: No Nausea, No Vomiting, No Abdominal Pain, No Diarrhea, No Constipation, No Melena, No Hematochezia, No Other Genitourinary: No Dysuria, No Frequency, No Incontinence, No Hematuria, No Retention, No Other Musculoskeletal: No other, No neck pain, No shoulder pain, No arm pain, No back pain, No hand pain, No leg pain, No foot pain Skin: No Rash, No Lesions, No Jaundice, No Bruising, No Other Objective Vitals Vital Signs Date Time Temp Pulse Resp B/P (MAP) Pulse Ox O2 Delivery O2 Flow Rate FiO2 01/03/25 09:43 72 156/75 01/03/25 08:20 98 Room Air* 0 21 01/03/25 07:30 97.8 16 97.8 Intake/Output Intake and Output 01/03/25 07:00 Intake Total 1640 ml Output Total 3 ml Balance 1637 ml Intake Oral 740 ml Tube Feeding 0 ml Blood Product 600 ml Other 300 ml Output Urine Total 3 ml Stool Total 0 ml Urine/Stool Mix 0 ml Gastric Drainage Total 0 ml Emesis 0 ml Chest Tube Drainage Total 0 ml Drainage Total 0 ml Other 0 ml # Bowel Movements 1 General Appearance: Alert, Oriented X3, Cooperative, mild distress HEENT: Atraumatic, PERRLA Cardiovascular: Normal S1, Normal S2 Musculoskeletal: Normal sensory function, Normal motor function Skin: Other (Plus two generalized edema to lower extremity with noted ecchymosis and scabbing from patient's scratching area) Psych/Mental Status: Mental status NL, Mood NL Medications Current Medications Medications Dose Ordered Sig/Yesenia Route Start Time Stop Time Status Last Admin Dose Admin Albuterol 2.5 mg Q4HPRN PRN NEB 01/01/25 22:45 Ipratropium [place] 0.5 mg Q4HPRN PRN NEB 01/01/25 22:45 Azithromycin 250 ml @ 125 mls/hr Q24H IV 01/02/25 22:00 01/02/25 22:39 125 MLS/HR Heparin Sodium (Porcine) 5,000 units Q12HR SC 01/02/25 10:00 01/03/25 09:54 5,000 UNITS Famotidine 20 mg Q12HR IV 01/02/25 10:00 01/03/25 09:43 20 MG Carvedilol 3.125 mg Q12HR PO 01/02/25 10:00 01/03/25 09:43 3.125 MG Hydralazine HCl 10 mg Q6HP PRN IV 01/01/25 22:45 Diagnostic Test (Pha) 1 strip ACHS 01/02/25 07:00 01/03/25 06:12 1 STRIP Insulin Human Regular ACHS SC 01/02/25 07:00 01/02/25 22:55 3 UNITS Dextrose 50 ml UD PRN IV 01/01/25 22:45 Sodium Chloride 10 ml Q8HR IV 01/02/25 06:00 01/03/25 06:12 10 ML Acetaminophen/ Hydrocodone Bitart 1 tab Q4HP PRN PO 01/01/25 22:45 Ondansetron HCl 4 mg Q4HP PRN IV 01/01/25 22:45 Docusate Sodium 100 mg BIDPRN PRN PO 01/01/25 22:45 Acetaminophen 650 mg Q6HP PRN PO 01/01/25 22:45 Nitroglycerin 0.4 mg Q5MINP PRN SL 01/01/25 22:45 Morphine Sulfate 2 mg Q30M PRN IV 01/01/25 22:45 Atorvastatin Calcium 10 mg HS PO 01/02/25 22:00 01/02/25 22:13 10 MG Empaglifozin 10 mg DAILY PO 01/02/25 12:30 01/03/25 09:43 10 MG Furosemide 40 mg BIDD IV 01/02/25 18:00 01/03/25 07:34 40 MG Laboratory Results Laboratory Tests 01/02/25 03:20 Urinalysis Test 01/01/25 22:00 Urine Color Yellow (Yellow) Urine Clarity Clear (Clear) Urine pH 6.0 (5.0-9.0) Urine Specific [place] 1.013 (1.001-1.035) Urine Protein 2+ (Negative) H Urine Ketones Negative (Negative) Urine Blood Negative /uL (Negative) Urine Nitrite Negative (Negative) Urine Bilirubin Negative (Negative) Urine Urobilinogen Normal mg/dL (Negative) Urine Leukocyte Esterase Negative /uL (Negative) Urine Glucose Trace mg/dL (Normal) H Labs and/or images reviewed: Labs reviewed by me, Image(s) reviewed by me Assessment/Plan Assessment/Plan Impression: -acute decompensated systolic heart failure, HFrEF -medication noncompliance -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 CKD stage IIIB -diabetes mellitus -history of scabies Plan: Events: Clinically patient has improved. Decrease the swelling to lower extremities. Shortness of breath has resolved. Labs for today pending. Apparently, patient received 2nd unit of blood that was ordered over 24 hours ago earlier this a.m.. -IV diuresis -start guideline directed medical therapy while holding Reji/Arb and spironolactone due to renal function -regular insulin sliding scale -Echocardiogram: Results pending -cardiology consultation -repeat labs and chest x-ray in a.m. Total time spent with patient discussing and formulating plan of care: 35 minutes. This medical document was created using an electronic medical record system with [employer] dictation system. Although this document has been carefully reviewed, there may still be some phonetic and typographical errors. These areas are purely typographical due to imperfections of the software programs, and do not reflect any compromise in the patient's medical care. Plan discussed with: Patient, Other (RN) My Orders Orders - OFE TORRES NP Procedure Category Date Status Time Echo 2d Mode Cardiac US 01/02/25 Resulted DOP 12:24 Empagliflozin PHA 01/02/25 In Process (Jardiance) 12:30 Furosemide Injection PHA 01/02/25 In Process (Lasix Injection) 18:00 Basic Metabolic Panel LAB 01/03/25 Logged 04:00 Complete Blood Count LAB 01/03/25 Logged 04:00 * Cardiology Consult CONS 01/03/25 Transmitted 10:13 Chest Portable XY 01/03/25 Logged 10:12 Date of Service: Jan 03, 2025 Billing Provider: OFE TORRES NP Common Visit Codes: [id number] INP/OBS CARE(HIGH) OFE TORRES NP Jan 03, 2025 10:27
[2025-01-03 10:39] LABS: Hematocrit 32.3 % (36.0-46.0); Nucleated Red Blood Cells % 0.8 %
[2025-01-03 10:41] LABS: Hemoglobin 10.1 g/dL (12.2-16.2); Mean Corpuscular Hemoglobin 22.1 pg (28.0-32.0); Mean Corpuscular Volume 71.0 fL (80.0-100.0)
[2025-01-03 10:47] LABS: Chloride 102 mmol/L (98-107); Potassium 3.6 mmol/L (3.5-5.1)
[2025-01-03 10:48] LABS: Anion Gap 11 (5-15); Calcium 9.3 mg/dL (8.7-10.4); Carbon Dioxide 21 mmol/L (20-31); Sodium 134 mmol/L (136-145)
[2025-01-03 10:53] LABS: BUN/Creatinine Ratio 14.2 (10.0-20.0)
[2025-01-03 11:01] LABS: Blood Urea Nitrogen 31 mg/dL (9-23); Glucose 134 mg/dL (74-106)
[2025-01-03 12:14] LABS: Anisocytosis Moderate
[2025-01-03 12:15] LABS: Ovalocytes FEW
[2025-01-03] MEDS: hydrALAZINE HCL 20 MG/ML VL IV PRN (12:50)
--- NOTE | 2025-01-03 14:31 | DVH ---
INDICATION: chf TECHNIQUE: Single frontal view of the chest was obtained COMPARISON: XY CHEST PORTABLE on DOS: 01/01/25, XY CHEST PORTABLE on DOS: 07/02/24, XY CHEST XRAY 1 VIEW on DOS: 05/26/24, XY CHEST PORTABLE on DOS: 05/23/24, XY CHEST PORTABLE on DOS: 04/09/24, XY CHEST PO RTABLE on DOS: 01/01/25 FINDINGS: Lines and Tubes: None Lungs: Increased interstitial markings in the perihilar areas and throughout the right chest. Pleura: No effusion. No pneumothorax. Cardiomediastinal contours: Cardiac size upper limits of normal. Bones: No acute osseous abnormality. IMPRESSION: Congestive failure or pneumonia are both in the differential.
--- NOTE | 2025-01-03 14:48 | DVHINCON2 ---
Date Seen: Jan 03, 2025 Referring Physician RODERICK Mcneal Reason for Consultation CHF History of Present Illness This is a 69-year-old female who presented to the emergency room with a chief complaint of shortness of breath for two weeks. The patient complains of shortness of breath associated with PND, AVELAR, orthopnea, and bilateral lower extremity edema for approximately two weeks. The patient also endorses increas ed fatigue with house chores. There was no twelve lead electrocardiogram on file. Serial troponin levels are negative. 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 Denies any history of cardiac catheterizations. Significant medical history includes congestive heart failure with history of LifeVest, hypertension, dyslipidemia, insulin dependent diabetes mellitus, chronic kidney disease stage IIIB, iron deficiency anemia, and obesity. Past Medical History Past medical history reviewed. No other significant than mentioned above. Past Surgical History Family History: FH: congestive heart failure G8 MOTHER, Family history: Cardiovascular disease G8 SISTER, Onset:50's - 60 Family history: Diabetes mellitus G8 MOTHER, , Onset:50's - 60 G8 SISTER, Onset:40's - 50 Family History Family history reviewed. Social History Denies the use of illicit drugs, alcohol, or tobacco use. Allergies: Coded Allergies: Ibuprofen (Verified Allergy, Unknown, 10/03/23) Uncoded Allergies: Starfruit (Allergy, Severe, 01/02/25) Home Meds Active Scripts Cefdinir (Cefdinir) 300 Mg Cap, 1 CAP PO BID for 7 Days, #14 CAP Prov:TERESA HERRMANN MD 07/09/24 Isosorbide Mononitrate (Isosorbide Mononitrate Er) 30 Mg Tab, 1 TAB PO DAILY for 30 Days, #30 TAB 5 Refills Prov:ALEJANDRO LEIGH 07/05/24 B-Complex W/ C & Folic Acid (Nephro-[place]io) Tab, 1 TAB PO DAILY for 30 Days, #30 TAB 3 Refills Prov:KERA BOLTON MD 06/03/24 Metoprolol Succinate (Toprol Xl) 50 Mg Tab, 50 MG PO DAILY for 30 Days, #30 TAB 2 Refills Prov:KERA BOLTON MD 06/03/24 Furosemide (Lasix) 40 Mg Tab, 40 MG PO QAM for 30 Days, #30 TAB 3 Refills Prov:KERA BOLTON MD 06/03/24 Pantoprazole Sodium Sesquihydr (Pantoprazole Sodium) 40 Mg Tab, 40 MG PO DAILY for 30 Days, #30 TAB 2 Refills Prov:KERA BOLTON MD 06/03/24 Losartan Potassium (Losartan Potassium) 100 Mg Tab, 100 MG PO DAILY for 30 Days, #30 TAB 2 Refills Prov:KERA BOLTON MD 06/03/24 Empagliflozin (Jardiance) 10 Mg Tab, 10 MG PO DAILY for 30 Days, #30 TAB 2 Refills Prov:KERA BOLTON MD 06/03/24 Atorvastatin Calcium (ATORVASTATIN CALCIUM) 20 Mg Tab, 20 MG PO HS for 30 Days, #30 TAB 3 Refills Prov:KERA BOLTON MD 06/03/24 Ferrous Sulfate (Ferrous Sulfate) 325 Mg Tab, 1 TAB PO EVERY OTHER DAY for 30 Days, #15 TAB Prov:LIN MADRIGAL MD 02/28/24 Ergocalciferol (VITAMIN D 83439 UNIT) 50,000 [place], [address] UNIT PO Q7D for 12 Days, #12 CAP Prov:MABEL GUZMAN MD 01/11/23 Empagliflozin (Jardiance) 10 Mg Tab, 10 MG PO QAM for 30 Days, #30 TAB Prov:MABEL GUZMAN MD 01/11/23 Reported Medications Sitagliptin Phosphate (Januvia) 50 Mg Tab, 1 TAB PO DAILY, #30 TAB 5 Refills 01/02/25 Hydralazine Hcl (Hydralazine Hcl) 50 Mg Tab, 100 MG PO BID 10/03/23 Furosemide (Furosemide) 40 Mg Tab, 1 TAB PO DAILY 10/03/23 Finerenone (Kerendia) 10 Mg Tab, 1 TAB PO DAILY 10/01/23 Metoprolol Succinate (Metoprolol Succinate Er) 100 Mg Tab, 1 TAB PO DAILY 10/01/23 Losartan Potassium (Losartan Potassium) 100 Mg Tab, 100 MG PO DAILY for 30 Days, MG 07/12/21 Home Meds Home medications reviewed. Current Medications Current Medications Medications (Trade) Dose Ordered Sig/Yesenia Route PRN Reason Start Time Stop Time Status Last Admin Azithromycin 250 ml @ 125 mls/hr Q24H IV 01/02/25 22:00 01/02/25 22:39 Atorvastatin Calcium (Lipitor) 10 mg HS PO 01/02/25 22:00 01/02/25 22:13 Furosemide (Lasix Injection) 40 mg BIDD IV 01/02/25 18:00 01/03/25 07:34 Review of Systems Constitutional: No symptom reported Ears, Nose, & Throat: No symptom reported Eyes: No symptom reported Neurological: No symptoms reported Pulmonary/Respiratory: SOB, PND, AVELAR, orthopnea Cardiovascular: No symptom reported Gastrointestinal: No symptom reported Genitourinary: No symptom reported Musculoskeletal: No symptom reported Skin: No symptom reported Psychiatric: No symptom reported Endocrine: No symptom reported Hemotologic/Lymphatic: No symptom reported Vital Signs Vital Signs Date Time Temp Pulse Resp B/P (MAP) Pulse Ox O2 Delivery O2 Flow Rate FiO2 01/03/25 14:02 97 Room Air 01/03/25 14:02 0 21 01/03/25 13:00 97.4 65 18 168/83 (111) 97.4 Physical Exam General Appearance: Cooperative. . In no acute distress Head Exam: Normal inspection Neck Exam: Normal inspection. Non-tender. Normal alignment Pulmonary/Respiratory: Chest non-tender. Bilateral crackles breath sounds, R>L Cardiovascular/Chest: Regular rate and rhythm. S1, S2. SR. No murmurs. No JVD. Peripheral Pulses: 2+ Radial (R). 2+ Radial (L). 2+ Pedal (R). 2+ Pedal (L) Abdominal Exam: Normal bowel sounds. Soft. Ankle Exam: Positive ankle pitting edema, 3+ Lower extremities: Positive lower extremity pitting edema, 3+ Neuro/Mental Status: A&O x3. Coherent Thoughts/Psych: Normal thought pattern. Talkative, odd behavior Appearance: In no acute distress Skin Exam: Normal inspection. Pale color. Warm. Dry Labs/Diagnostic Data Labs Test 01/03/25 11:46 01/03/25 10:28 01/02/25 03:20 01/01/25 22:00 Range/Units POC Glucose 151 H 70-106 mg/dl White Blood Count 6.8 # 4.4-10.8 10^3/uL Red Blood Count 4.55 4.0-5.20 10^6/uL Hemoglobin 10.1 #L 12.2-16.2 g/dL Hematocrit 32.3 #L 36.0-46.0 % Mean Corpuscular Volume 71.0 #L 80.0-100.0 fL Mean Corpuscular Hemoglobin 22.1 L 28.0-32.0 pg Mean Corpuscular Hemoglobin Concent 31.1 L 32.0-36.0 g/dL Red Cell Distribution Width 29.7 H 11.8-14.3 % Platelet Count 492 H 140-450 10^3/uL Mean Platelet Volume 6.6 L 6.9-10.8 fL Neutrophils (%) (Auto) 64.8 37.0-80.0 % Lymphocytes (%) (Auto) 20.0 10.0-50.0 % Monocytes (%) (Auto) 6.9 0.0-12.0 % Eosinophils (%) (Auto) 6.9 0.0-7.0 % Basophils (%) (Auto) 1.4 0.0-2.0 % Neutrophils # (Auto) 4.4 1.6-8.6 10 ^3/uL Lymphocytes # (Auto) 1.4 0.4-5.4 10 ^3/uL Monocytes # (Auto) 0.5 0-1.3 10 ^3/uL Eosinophils # (Auto) 0.5 0-0.8 10 ^3/uL Basophils # (Auto) 0.1 0-0.2 10 ^3/uL Nucleated Red Blood Cells 0.8 % Platelet Estimate Increa Large Platelets Few Hypochromasia (manual) Moderate Anisocytosis (manual) Moderate Microcytosis Moderate Ovalocytes Few Sodium Level 134 L 136-145 mmol/L Potassium Level 3.6 3.5-5.1 mmol/L Chloride Level 102 98-107 mmol/L Carbon Dioxide Level 21 20-31 mmol/L Anion Gap 11 5-15 Blood Urea Nitrogen 31 H 9-23 mg/dL Creatinine 2.18 H 0.550-1.02 mg/dL Glomerular Filtration Rate Calc 24 >90 mL/min BUN/Creatinine Ratio 14.2 10.0-20.0 Serum Glucose 134 H 74-106 mg/dL Calcium Level 9.3 8.7-10.4 mg/dL Differential Total Cells Counted 100.0 100 Neutrophils % (Manual) 83 H 37.0-80.0 Band Neutrophils % (Manual) 0 Lymphocytes % (Manual) 8 L 10.0-50.0 Monocytes % (Manual) 4 0-12 Eosinophils % (Manual) 5 0-7 Basophils % (Manual) 0 0.0-2.0 Metamyelocytes % (manual) 0 Myelocytes % (Manual) 0 Promyelocytes % (Manual) 0 Blast Cells % (Manual) 0 Reactive Lymphocytes 0 Magnesium Level 2.0 1.6-2.6 mg/dL Iron Level 15 L 50-170 ug/dL Total Iron Binding Capacity 337 250-425 ug/dL Percent Iron Saturation 4.5 L 15-50 % Total Bilirubin 0.5 0.2-1.0 mg/dL Aspartate Amino Transferase (AST) 15 13-40 U/L Alanine Aminotransferase (ALT) 14 7-40 U/L Alkaline Phosphatase 125 H 46-116 U/L Total Protein 5.5 L 5.7-8.2 g/dL Albumin 3.4 3.2-4.8 g/dL Urine Color Yellow Yellow Urine Clarity Clear Clear Urine pH 6.0 5.0-9.0 Urine Specific [place] 1.013 1.001-1.035 Urine Protein 2+ H Negative Urine Ketones Negative Negative Urine Blood Negative Negative /uL Urine Nitrite Negative Negative Urine Bilirubin Negative Negative Urine Urobilinogen Normal Negative mg/dL Urine Leukocyte Esterase Negative Negative /uL Urine Glucose Trace H Normal mg/dL Test 01/01/25 20:35 01/01/25 17:41 Range/Units Troponin I High Sensitivity 18 </=34 ng/L [place] Cells Few Schistocytes Few D-Dimer, Quantitative 3.43 H 0.0-0.49 mg/L FEU B-Type Natriuretic Peptide 2529.21 0-100 pg/mL Assessment Acute on chronic decompensated HFrEF, NYHA Class IV Hypertensive urgency Insulin-dependent diabetes mellitus Acute anemia status post blood transfusion Dyslipidemia YOVANI on CKD Stage IIIB Medical noncompliance Plan/Recommendation (Dr. Petersen) Transthoracic echocardiogram revealed EF of 30% with moderate LVH, severe mitral regurgitation, moderate mitral stenosis, and biatrial enlargement. Obtain a baseline twelve-lead electrocardiogram. Initiate full GDMT for HFrEF with optimal renal function. In the time being continue Coreg and Lasix therapy. The patient is not a candidate for invasive cardiac procedures at this time given YOVANI on CKD Stage IIIB and recent blood transfusion. It will be prudent to schedule for a potential cardiac catheterization and coronary angiogram with optimal renal function or if initiated on hemodialysis. Consider nephrology consultation. Thank you for allowing us to participate in this patient's care. Please call if you have any questions or concerns. This medical document was created using an electronic medical record system with voice recognition software and computerized dictation system. Although this document has been carefully reviewed, there might still be some phonetic and typographical errors. Occasional wrong-word or ``sound-alike substitutions may have occurred due to the inherent limitations of voice recognition software. These areas are purely typographical due to imperfections of the software programs and do not reflect any compromise in the patient's medical care. Please read the chart carefully and recognize, using context, where these substitutions have occurred. Plan discussed with: Patient, Other NYHA Physical activity limitations: Class4(Severe)discomfort (w any activit,symptoms at rest) Date of Service: Jan 03, 2025 Billing Provider: CLAUDIA MALAGON Cardiology Common Codes: [id number] INP/OBS CARE (High) CLAUDIA MALAGON Jan 03, 2025 14:48
[2025-01-03] MEDS: CARVEDILOL 12.5 MG TAB PO SCH (22:04)
[2025-01-04] VITALS (7 sets, daily range): BP systolic 127–160; BP diastolic 57–82; PULSE 56–70; RESP 14–18; TEMP 36.7; O2SAT 96–99
--- NOTE | 2025-01-04 11:58 | ECG ---
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
[2025-01-04] MEDS: FERROUS SULFATE 325mg EC TAB PO SCH (12:02)
[2025-01-04] MEDS ORDERED: FURO1TAB31 PO (13:20)
[2025-01-04] MEDS ORDERED: FERR-7 PO (13:20)
[2025-01-04] MEDS ORDERED: CARV-216 OR (13:20)
--- NOTE | 2025-01-04 14:36 | DVHDS2 ---
Discharge Summary Date of Admission Jan 01, 2025 at 22:42 Date of Discharge: Jan 04, 2025 Admitting Diagnosis Acute exacerbation of CHF Labs/Diagnostic Data: Laboratory Results Test 01/04/25 12:21 01/03/25 10:28 01/02/25 03:20 01/01/25 22:00 POC Glucose 140 mg/dl (70-106) White Blood Count 6.8 10^3/uL (4.4-10.8) Red Blood Count 4.55 10^6/uL (4.0-5.20) Hemoglobin 10.1 g/dL (12.2-16.2) Hematocrit 32.3 % (36.0-46.0) Mean Corpuscular Volume 71.0 fL (80.0-100.0) Mean Corpuscular Hemoglobin 22.1 pg (28.0-32.0) Mean Corpuscular Hemoglobin Concent 31.1 g/dL (32.0-36.0) Red Cell Distribution Width 29.7 % (11.8-14.3) Platelet Count 492 10^3/uL (140-450) Mean Platelet Volume 6.6 fL (6.9-10.8) Neutrophils (%) (Auto) 64.8 % (37.0-80.0) Lymphocytes (%) (Auto) 20.0 % (10.0-50.0) Monocytes (%) (Auto) 6.9 % (0.0-12.0) Eosinophils (%) (Auto) 6.9 % (0.0-7.0) Basophils (%) (Auto) 1.4 % (0.0-2.0) Neutrophils # (Auto) 4.4 10 ^3/uL (1.6-8.6) Lymphocytes # (Auto) 1.4 10 ^3/uL (0.4-5.4) Monocytes # (Auto) 0.5 10 ^3/uL (0-1.3) Eosinophils # (Auto) 0.5 10 ^3/uL (0-0.8) Basophils # (Auto) 0.1 10 ^3/uL (0-0.2) Nucleated Red Blood Cells 0.8 % Platelet Estimate Increa Large Platelets Few Hypochromasia (manual) Moderate Anisocytosis (manual) Moderate Microcytosis Moderate Ovalocytes Few Sodium Level 134 mmol/L (136-145) Potassium Level 3.6 mmol/L (3.5-5.1) Chloride Level 102 mmol/L (98-107) Carbon Dioxide Level 21 mmol/L (20-31) Anion Gap 11 (5-15) Blood Urea Nitrogen 31 mg/dL (9-23) Creatinine 2.18 mg/dL (0.550-1.02) Glomerular Filtration Rate Calc 24 mL/min (>90) BUN/Creatinine Ratio 14.2 (10.0-20.0) Serum Glucose 134 mg/dL (74-106) Calcium Level 9.3 mg/dL (8.7-10.4) Differential Total Cells Counted 100.0 (100) Neutrophils % (Manual) 83 (37.0-80.0) Band Neutrophils % (Manual) 0 Lymphocytes % (Manual) 8 (10.0-50.0) Monocytes % (Manual) 4 (0-12) Eosinophils % (Manual) 5 (0-7) Basophils % (Manual) 0 (0.0-2.0) Metamyelocytes % (manual) 0 Myelocytes % (Manual) 0 Promyelocytes % (Manual) 0 Blast Cells % (Manual) 0 Reactive Lymphocytes 0 Magnesium Level 2.0 mg/dL (1.6-2.6) Iron Level 15 ug/dL (50-170) Total Iron Binding Capacity 337 ug/dL (250-425) Percent Iron Saturation 4.5 % (15-50) Total Bilirubin 0.5 mg/dL (0.2-1.0) Aspartate Amino Transferase (AST) 15 U/L (13-40) Alanine Aminotransferase (ALT) 14 U/L (7-40) Alkaline Phosphatase 125 U/L (46-116) Total Protein 5.5 g/dL (5.7-8.2) Albumin 3.4 g/dL (3.2-4.8) Urine Color Yellow (Yellow) Urine Clarity Clear (Clear) Urine pH 6.0 (5.0-9.0) Urine Specific [place] 1.013 (1.001-1.035) Urine Protein 2+ (Negative) Urine Ketones Negative (Negative) Urine Blood Negative /uL (Negative) Urine Nitrite Negative (Negative) Urine Bilirubin Negative (Negative) Urine Urobilinogen Normal mg/dL (Negative) Urine Leukocyte Esterase Negative /uL (Negative) Urine Glucose Trace mg/dL (Normal) Test 01/01/25 20:35 01/01/25 17:41 Troponin I High Sensitivity 18 ng/L (</=34) [place] Cells Few Schistocytes Few D-Dimer, Quantitative 3.43 mg/L FEU (0.0-0.49) B-Type Natriuretic Peptide 2529.21 pg/mL (0-100) Other Laboratory Tests 01/03/25 10:28 Brief Hx & Hospital Course: History of Present Illness The patient is a 69-year-old female morbidly obese with past medical history of anemia, Coronary artery disease, CHF, DM, hyperlipidemia, UTIs, and hypertension who presented to [facility] ED with complaint of shortness of breaths for the past 2 weeks. Patient reports she has been experiencing shortness of breaths, associated with cough, increased work of breathing, getting worse that prompted this visit. Patient reports not currently seen by Cardiology due to insurance purposes. Patient was seen and evaluated in the ED, laboratory data shows WBC 9.2, hemoglobin 7.0, hematocrit 23.3, platelets 534, sodium 134, potassium 3.7, BUN 33, creatinine 2.14, glucose 137, calcium 8.6, BNP 2529.21, protein 5.0, D-dimer 3.43, troponin 18, blood pressure 139/66, pulse 68, temperature 97.0 F, O2 saturation 99% on oxygen. Chest x-ray revealing congestive failure or pneumonia. Patient was started on IV Lasix, given IV antibiotic regimen azithromycin, please see medication orders section in the computer. On my assessment, patient denied chest pain, no headache, no dizziness, no shortness of breath, no diaphoresis, no diarrhea, no nausea, no vomiting, no fever, no chills. Patient was admitted for further evaluation and medical management. Course of hospitalization: Patient had echocardiogram with noted decreased ejection fraction of 30%, worse than prior echocardiogram. Patient was given aggressive IV diuresis, as well as being started on carvedilol. Given patient's CKD stage 4, PATSY inhibitor and spironolactone were being held at this time. Patient was placed on Jardiance. Patient ended up receiving2 units of PRBCs given hemoglobin is 7.0. Patient does have a history of iron-deficiency anemia for which she is not receiving supplementation. Patient has bilateral lower extremity swelling has improved. Patient is agreeable to be discharged home and continue with guideline directed medical therapy. Patient will follow up with her new PCP, Dr. Duarte in 1-2 weeks, medical oncology physician Dr. Hutchinson in 1-2 weeks, in addition to continuing with fluid restriction and diuresis. Patient was also instructed to follow up with her brim flexer, Dr. Will as an outpatient. Physical examination General: Alert and Oriented x3. No acute distress. Well-nourished. Eyes: EOMI. Anicteric. HENT: Moist mucous membranes. Lungs: Clear to auscultation bilaterally. No accessory muscle use. Cardiovascular: Regular rate and rhythm. No murmur. No JVD. Abdomen: Soft, non-tender and non-distended. No palpable masses. Extremities: No edema. Non-tender. Plus two pedal edema Skin: No rashes or lesions. Warm. Neurologic: No focal neurological deficits. CN II-XII grossly intact, but not individually tested. Psychiatric: Cooperative. Appropriate mood and affect. Total time spent with patient discussing and formulating plan of care: 35 minutes. This medical document was created using an electronic medical record system with [employer] dictation system. Although this document has been carefully reviewed, there may still be some phonetic and typographical errors. These areas are purely typographical due to imperfections of the software programs, and do not reflect any compromise in the patient's medical care. Consults/Reason for consult Cardiology: Decompensated heart failure Condition at Discharge: Guarded Final Diagnosis/Problems List Acute Decompensated HF Secondary diagnosis: -acute decompensated systolic heart failure, HFrEF -medication noncompliance -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 CKD stage IIIB/for -diabetes mellitus -history of scabies Discharge Disposition: Home Discharge Instruct/Medications Diet: Cardiac 2g Na,low cholest, Renal Activity: No Restrictions, As Tolerated Follow Up/Referral: Dr. Duarte in 1-[address] Hutchinson in 1-2 weeks Medications: Coreg 12.5 po bid Lasix 40mg po bid Iron Sulfate 325mg po bid Continue all other home medications Scheduled Atorvastatin Calcium (Atorvastatin Calcium), 20 MG PO HS B-Complex W/ C & Folic Acid (Nephro-Rio), 1 TAB PO DAILY Carvedilol (Coreg), 12.5 MG OR BID Cefdinir (Cefdinir), 1 CAP PO BID Empagliflozin (Jardiance), 10 MG PO QAM Empagliflozin (Jardiance), 10 MG PO DAILY Ergocalciferol (Vitamin D 56527 Unit), 50,000 UNIT PO Q7D Ferrous Sulfate (Ferrous Sulfate), 1 TAB PO EVERY OTHER DAY Ferrous Sulfate (Iron), 325 MG PO BID Finerenone (Kerendia), 1 TAB PO DAILY, (Reported) Furosemide (Furosemide), 1 TAB PO DAILY, (Reported) Furosemide (Lasix), 40 MG PO QAM Furosemide (Lasix), 40 MG PO BID Hydralazine Hcl (Hydralazine Hcl), 100 MG PO BID, (Reported) Isosorbide Mononitrate (Isosorbide Mononitrate Er), 1 TAB PO DAILY Losartan Potassium (Losartan Potassium), 100 MG PO DAILY, (Reported) Losartan Potassium (Losartan Potassium), 100 MG PO DAILY Metoprolol Succinate (Metoprolol Succinate Er), 1 TAB PO DAILY, (Reported) Metoprolol Succinate (Toprol Xl), 50 MG PO DAILY Pantoprazole Sodium Sesquihydr (Pantoprazole Sodium), 40 MG PO DAILY Sitagliptin Phosphate (Januvia), 1 TAB PO DAILY, (Reported) 36 Discharge Statement: "Patient was advised to return to the ER or call 911 if any headaches, dizziness, shortness of breath, chest pain, abdominal pain, bleeding, fevers, or worsening of medical condition. Patient was counseled about treatment plan, medications, possible side effects, patientverbalized understanding. All questions were answered to the best of my ability. This discharge took greater then 30 minutes in planning, reviewing documentation, counseling the patient, and discussing with other team members." ASSESSMENT ASSESSMENT Assessment Acute Decompensated HF Date of Service: Jan 04, 2025 Billing Provider: OFE TORRES NP Common Visit Codes: [id number] INP/OBS CARE(HIGH) OFE TORRES NP Jan 04, 2025 14:36
--- NOTE | 2025-01-04 16:00 | MEDREC ---
[facility] Intervention Section I [facility] Intervention: Review courses of therapy (PRIMARY DIAGNOSIS OF ACUTE CHF EXACERBATION, CONSIDER DISCONTINUING AZITHROMYCIN DUE TO QTc PROLONGATION IF CLINICALLY APPROPRIATE.) ADAMARIS COOLEY [facility] RESIDENT Jan 04, 2025 16:00
== END 2025-01-04 20:30 | disposition home or self-care (01) | DRG 291 ==
LOC: ER 17:08 → OVERFLOW 22:42 → TELE-EAST 01-02 17:31
PROVIDERS: ADMIT Nurse Practitioner Acute Care; ATTEND Nurse Practitioner Acute Care
PROC: 30233N1 Transfusion of Nonautologous Red Blood Cells into Peripheral Vein, Percutaneous Approach (ICD-10-PCS; principal; 2025-01-02)
DX: I13.0 Hypertensive heart and chronic kidney disease with heart failure and stage 1 through stage 4 chronic kidney disease, or unspecified chronic kidney disease (principal); I50.23 Acute on chronic systolic (congestive) heart failure; N17.0 Acute kidney failure with tubular necrosis; N18.4 Chronic kidney disease, stage 4 (severe); E11.22 Type 2 diabetes mellitus with diabetic chronic kidney disease; D50.9 Iron deficiency anemia, unspecified; I16.0 Hypertensive urgency; I05.2 Rheumatic mitral stenosis with insufficiency; E66.01 Morbid (severe) obesity due to excess calories; I25.10 Atherosclerotic heart disease of native coronary artery without angina pectoris; E78.5 Hyperlipidemia, unspecified; Z68.28 Body mass index [BMI] 28.0-28.9, adult; Z87.440 Personal history of urinary (tract) infections; Z91.148 Patient's other noncompliance with medication regimen for other reason; Z91.018 Allergy to other foods; Z88.6 Allergy status to analgesic agent; Z79.4 Long term (current) use of insulin; Z83.3 Family history of diabetes mellitus; Z82.49 Family history of ischemic heart disease and other diseases of the circulatory system
CPT/HCPCS: 36415; 71045; 80048; 80053; 81003; 82962; 83540; 83550; 83735; 83880; 84484; 85007; 85025; 85027; 85379; 86850; 86870; 86900; 86901; 86902; 86922; 93005; 93306; 94640; G0378; J1815; J3490

== ENCOUNTER 2025-03-11 12:20 | Inpatient (IN) | payer MEDICARE, MEDICAID ==
[~2025-03-11] VITALS: Ht 165.1 cm; Wt 74.9 kg
[~2025-03-11 12:20] MED LIST changes: +CARV-216 OR; +FERR-7 PO; +SITA50TA PO
--- NOTE | 2025-03-11 12:41 | ECG ---
[facility] Test Date: 2025-03-11 Test Time: 12:34:48 Pat Name: ALISTAIR CARDOZA Department: ED Room: [address] [place] [address] Gender: F Store Standards Associate: CATARINO : 1955 Requested By: BHARATHI BAILEY Order Number: [id number] Reading MD: River Hutchinson Measurements Intervals [place] Rate: 96 P: 74 FL: 150 QRS: -37 QRSD: 188 T: 135 QT: 432 QTc: 546 Interpretive Statements Sinus rhythm Left bundle branch block Artifact in lead(s) II,III,aVL,aVF,V5 and baseline wander in lead(s) V1,V5 Electronically Signed On 03-13-2025 18:44:31 PDT by River Hutchinson Please click the below link to view image of tracing.
[2025-03-11 13:21] LABS: Mean Corpuscular Hemoglobin 21.1 pg (28.0-32.0)
--- NOTE | 2025-03-11 13:21 | ED.PDOC ---
History of Present Illness HPI Comments 69 y/o F, with PMHx of DM, HTN, CAD, CHF, HLD, and anemia presents to the ED for CC of generalized weakness. Patient states, she has been experiencing symptoms malaise, fever, shortness of breath, and abdominal pain x1week. Patient relays, that she was recently prescribed Z-Lewis and endorses symptoms beginning shortly after starting medication. Patient denies nausea, vomiting, diarrhea, melena, excessive sweating, or chills. No other symptoms or modifying factors are present at this time. Chief Complaint: General Weakness Time Seen by MD: 12:25 Primary Care Provider: ROSARIO Reviewed Notes: Nurses Notes, Medications, Allergies Allergies: Coded Allergies: Ibuprofen (Verified Allergy, Unknown, 10/03/23) Uncoded Allergies: Starfruit (Allergy, Severe, 01/02/25) Home Meds Active Scripts Ferrous Sulfate (Iron) 325 Mg Tab, 325 MG PO BID for 30 Days, #60 TAB 2 Refills Prov:OFE TORRES NP 01/04/25 Furosemide (Lasix) 40 Mg Tab, 40 MG PO BID for 30 Days, #60 TAB Prov:OFE TORRES NP 01/04/25 Carvedilol (COREG) 12.5 Mg Tab, 12.5 MG OR BID for 30 Days, #60 TAB 3 Refills Prov:OFE TORRES NP 01/04/25 Cefdinir (Cefdinir) 300 Mg Cap, 1 CAP PO BID for 7 Days, #14 CAP Prov:TERESA HERRMANN MD 07/09/24 Isosorbide Mononitrate (Isosorbide Mononitrate Er) 30 Mg Tab, 1 TAB PO DAILY for 30 Days, #30 TAB 5 Refills Prov:ALEJANDRO LEIGH RESIDENT 07/05/24 B-Complex W/ C & Folic Acid (Nephro-Rio) Tab, 1 TAB PO DAILY for 30 Days, #30 TAB 3 Refills Prov:KERA BOLTON MD 06/03/24 Metoprolol Succinate (Toprol Xl) 50 Mg Tab, 50 MG PO DAILY for 30 Days, #30 TAB 2 Refills Prov:KERA BOLTON MD 06/03/24 Furosemide (Lasix) 40 Mg Tab, 40 MG PO QAM for 30 Days, #30 TAB 3 Refills Prov:KERA BOLTON MD 06/03/24 Pantoprazole Sodium Sesquihydr (Pantoprazole Sodium) 40 Mg Tab, 40 MG PO DAILY for 30 Days, #30 TAB 2 Refills Prov:KERA BOLTON MD 06/03/24 Losartan Potassium (Losartan Potassium) 100 Mg Tab, 100 MG PO DAILY for 30 Days, #30 TAB 2 Refills Prov:KERA BOLTON MD 06/03/24 Empagliflozin (Jardiance) 10 Mg Tab, 10 MG PO DAILY for 30 Days, #30 TAB 2 Refi lls Prov:KERA BOLTON MD 06/03/24 Atorvastatin Calcium (ATORVASTATIN CALCIUM) 20 Mg Tab, 20 MG PO HS for 30 Days, #30 TAB 3 Refills Prov:KERA BOLTON MD 06/03/24 Ferrous Sulfate (Ferrous Sulfate) 325 Mg Tab, 1 TAB PO EVERY OTHER DAY for 30 Days, #15 TAB Prov:LIN MADRIGAL MD 02/28/24 Ergocalciferol (VITAMIN D 12009 UNIT) 50,[place], [address] UNIT PO Q7D for 12 Days, #12 CAP Prov:MABEL GUZMAN MD 01/11/23 Empagliflozin (Jardiance) 10 Mg Tab, 10 MG PO QAM for 30 Days, #30 TAB Prov:MABEL GUZMAN MD 01/11/23 Reported Medications Sitagliptin Phosphate (Januvia) 50 Mg Tab, 1 TAB PO DAILY, #30 TAB 5 Refills 01/02/25 Hydralazine Hcl (Hydralazine Hcl) 50 Mg Tab, 100 MG PO BID 10/03/23 Furosemide (Furosemide) 40 Mg Tab, 1 TAB PO DAILY 10/03/23 Finerenone (Kerendia) 10 Mg Tab, 1 TAB PO DAILY 10/01/23 Metoprolol Succinate (Metoprolol Succinate Er) 100 Mg Tab, 1 TAB PO DAILY 10/01/23 Losartan Potassium (Losartan Potassium) 100 Mg Tab, 100 MG PO DAILY for 30 Days, MG 07/12/21 Information Source: Patient Mode of Arrival: Ambulatory Severity: Moderate Timing: Days Duration: Since onset Prehospital treatment: None Past Medical History PAST MEDICAL HISTORY: Anemia, CAD, CHF, DM, High Lipids, HTN, UTI'S Surgical History: , 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 History Family History Family History: No family hx of Cancer, No family hx of DM, Family hx of heart sean Social History Smoker: Non-Smoker Alcohol: Denies ETOH Use Drugs: Denies Drug Use Lives In: Home Constitutional: reports: malaise, weakness; denies: chills, diaphoresis, fatigue, fever, sweats, others EENTM: denies: blurred vision, double vision, ear bleeding, ear discharge, ear drainage, ear pain, ear ringing, eye pain, eye redness, hearing loss, mouth pain, mouth swelling, nasal discharge, nose bleeding, nose congestion, nose pain, photophobia, tearing, throat pain, throat swelling, voice changes, others Respiratory: reports: shortness of breath; denies: cough, hemoptysis, orthopnea, SOB at rest, SOB with excertion, stridor, wheezing, others Cardiovascular: denies: chest pain, dizzy spells, diaphoresis, Dyspnea on exertion, edema, irregular heart beat, left arm pain, lightheadedness, palpitations, PND, syncope, others Gastrointestinal: denies: abdomen distended, abdominal pain, blood streaked bowels, constipated, diarrhea, dysphagia, difficulty swallowing, hematemesis, melena, nausea, poor appetite, poor fluid intake, rectal bleeding, rectal pain, vomiting, others Genitourinary: denies: abnormal vagina bleeding, burning, dyspareunia, dysuria, flank pain, frequency, hematuria, incontinence, pain, , vagina discharge, urgency, others Neurological: denies: dizziness, fainting, headache, left sided numbness, left sided weakness, numbness, paresthesia, pre-existing deficit, right sided numbness, right sided weakness, seizure, speech problems, tingling, tremors, weakness, others Musculoskeletal: denies: back pain, gout, joint pain, joint swelling, muscle pain, muscle stiffness, neck pain, others Integumetry: denies: bruises, change in color, change in hair/nails, dryness, laceration, lesions, lumps, rash, wounds, others Allergic/Immunocompromised: denies: Difficulty Healing, Frequent Infections, Hives, Itching, others Hematologic/Lymphatic: denies: anemia, blood clots, easy bleeding, easy bruising, swollen glands, others Endocrine: denies: excessive hunger, excessive sweating, excessive thirst, excessive urination, flushing, intolerance to cold, intolerance to heat, unexplained weight gain, unexplained weight loss, others Psychiatric: denies: anxiety, bipolar disorder, depression, hopeless, panic disorder, schizophrenia, sleepless, suicidal, others All Other Systems: Reviewed and Negative Physical Exam General Appearance: Moderate Distress HEENT: Normal ENT Inspection, Pharynx Normal, TMs Normal Neck: Full Range of Motion, Non-Tender, Normal, Normal Inspection Respiratory: Chest Non-Tender, Lungs Clear, No Accessory Muscle Use, No Respiratory Distress, Normal Breath Sounds Cardiovascular: No Edema, No JVD, No Murmur, No Gallop, Normal Peripheral Pulses, Regular Rate/Rhythm Breast Exam: Deferred Gastrointestinal: No Organomegaly, Non Tender, No Pulsatile Mass, Normal Bowel Sounds, Soft Genitalia: Deferred Pelvic: Deferred Rectal: Deferred Extremities: No calf tenderness, Normal capillary refill, Normal inspection, Normal range of motion, Non-tender, No pedal edema Musculoskeletal : Apperance: Normal Neurologic: Alert, player development manager II-XII nml as Tested, No Motor Deficits, Normal Affect, Normal Mood, No Sensory Deficits Cerebellar Function: NOT DONE Reflexes: NOT DONE Skin: Dry, Normal Color, Warm Peripheral Pulses: 3+ Radial (R), 3+ Radial (L) Lymphatic: No Adenopathy Was a procedure done? Was a procedure done?: No EKG EKG : Pulse Rate (adult): 96 [place]: Normal Cardiac Rhythm: NSR, PAC's Hypertrophy: None ST: Normal Differential Dx Considerations may include: tonsillitis, pharyngitis, URI, COVID-19, anemia, GERD, gastritis X-Ray, Labs, Meds, VS Vital Signs Date Time Temp Pulse Resp B/P (MAP) Pulse Ox O2 Delivery O2 Flow Rate FiO2 03/11/25 15:44 98.4 89 18 155/90 (111) 98 98.4 03/11/25 13:21 96 03/11/25 13:08 82 17 Room Air 0 03/11/25 13:06 99 Room Air* 0 21 03/11/25 13:03 98.5 85 18 163/37 (79) 97 98.5 03/11/25 12:34 96 03/11/25 12:22 97.4 105 20 170/82 97 97.4 Lab Test 03/11/25 15:30 03/11/25 13:06 03/11/25 13:02 Range/Units Urine Color Light-yellow Yellow Urine Clarity Clear Clear Urine pH 6.0 5.0-9.0 Urine Specific [place] 1.018 1.001-1.035 Urine Protein 3+ H Negative Urine Ketones Negative Negative Urine Blood 1+ H Negative /uL Urine Nitrite Negative Negative Urine Bilirubin Negative Negative Urine Urobilinogen Normal Negative mg/dL Urine Leukocyte Esterase Negative Negative /uL Urine RBC <1 0 - 4 /hpf Urine Microscopic WBC 1 0-5 /HPF Urine Squamous Epithelial Cells None seen <5 /hpf Urine Bacteria None seen None Seen /hpf Urine Glucose 1+ H Normal mg/dL White Blood Count 5.5 4.4-10.8 10^3/uL Red Blood Count 3.26 L 4.0-5.20 10^6/uL Hemoglobin 6.9 *L 12.2-16.2 g/dL Hematocrit 22.9 L 36.0-46.0 % Mean Corpuscular Volume 70.1 L 80.0-100.0 fL Mean Corpuscular Hemoglobin 21.1 L 28.0-32.0 pg Mean Corpuscular Hemoglobin Concent 30.1 L 32.0-36.0 g/dL Red Cell Distribution Width 21.5 H 11.8-14.3 % Platelet Count 396 140-450 10^3/uL Mean Platelet Volume 6.4 L 6.9-10.8 fL Neutrophils (%) (Auto) 37.0-80.0 % Lymphocytes (%) (Auto) 10.0-50.0 % Monocytes (%) (Auto) 0.0-12.0 % Basophils (%) (Auto) 0.0-2.0 % Neutrophils # (Auto) 1.6-8.6 10 ^3/uL Lymphocytes # (Auto) 0.4-5.4 10 ^3/uL Monocytes # (Auto) 0-1.3 10 ^3/uL Differential Total Cells Counted 100.0 100 Neutrophils % (Manual) 88 H 37.0-80.0 Band Neutrophils % (Manual) 1 Lymphocytes % (Manual) 4 L 10.0-50.0 Monocytes % (Manual) 6 0-12 Eosinophils % (Manual) 1 0-7 Basophils % (Manual) 0 0.0-2.0 Metamyelocytes % (manual) 0 Myelocytes % (Manual) 0 Promyelocytes % (Manual) 0 Blast Cells % (Manual) 0 Nucleated Red Blood Cells 1.0 % Reactive Lymphocytes 0 Platelet Estimate Adequate Hypochromasia (manual) Moderate Anisocytosis (manual) Slight Microcytosis Moderate Target Cells Few Ovalocytes Few Schistocytes Few Sodium Level 129 L 136-145 mmol/L Potassium Level 4.6 3.5-5.1 mmol/L Chloride Level 99 98-107 mmol/L Carbon Dioxide Level 19 L 20-31 mmol/L Anion Gap 11 5-15 Blood Urea Nitrogen 20 9-23 mg/dL Creatinine 1.65 H 0.550-1.02 mg/dL Glomerular Filtration Rate Calc 33 >90 mL/min BUN/Creatinine Ratio 12.1 10.0-20.0 Serum Glucose 149 H 74-106 mg/dL Calcium Level 8.4 L 8.7-10.4 mg/dL Troponin I High Sensitivity 20 </=34 ng/L POC Glucose 175 H 70-106 mg/dl [place] [id number] Ph: [phone] DIAGNOSTIC IMAGING Diagnostic Imaging Report : [id number] Signed PATIENT: ALISTAIR CARDOZACCT: [id number] UNIT: [id number] : 1955 LOC: ER ROOM / BED: / AGE / SEX: 69 / F ADM STATUS: REG ER SERVICE 1300 ORDERING PHYSICIAN: BHARATHI BAILEY MD PROCEDURE(s): CXRP - CHEST PORTABLE REASON: sob ORDER NUMBER(s): [id number], ACCESSION NUMBER(s): [id number] CHEST RADIOGRAPH Indication: sob Technique: Single frontal view of the chest was obtained Comparison: XY CHEST PORTABLE on DOS: 01/03/25, XY CHEST PORTABLE on DOS: 01/01/25, XY CHEST PORTABLE on DOS: 07/02/24 FINDINGS: Lines and Tubes: None Lungs: Stable increased interstitial markings not significantly changed from 01/03/2025 Pleura: No effusion. No pneumothorax. Cardiomediastinal contours: Stable Bones: No acute osseous abnormality. IMPRESSION: 1. No significant change from 01/03/2025. ATED BY: MONIQUE JOHNS Jr., DO DICTATED DATE/TIME: 03/11/251327 SIGNED BY: MONIQUE JOHNS Jr., SIGNED DATE/TIME: 03/11/251327 CC: Patient alert. Complaining of generalized weakness. Was treated recently with an antibiotic for possible upper respiratory tract infection. Vitals stable. Chest x-ray reviewed does not show any acute changes. Blood sugar elevated. Sodium is low. Establish intravenous access. Was given fluids. Hemoglobin is low. Was given blood transfusion. EKG reviewed does not show any acute process. Explained to the patient. Continue monitoring. Time of 1ST Reevaluation: 14:45 Reevaluation 1ST: Unchanged Patient Education/Counseling: Diagnosis, Treatment, Prognosis Family Education/Counseling: No Family Present SEPSIS Sepsis Screen Date sepsis recognized/suspect: Mar 11, 2025 Time Sepsis recognized/suspect: 1223 Recent Procedure: No On Antibiotic Therapy: No Respiratory Rate >20: No Heart Rate >90: Yes Temp<36 C (96.8 F) or >38.3 C: No SBP <90 or MAP <65 mmHG: No New Acute Mental Status Change: No Is the patient on CPAP, BIPAP,: No Physician Orders Chest Portable (03/11/25 13:00) Packedcells -Active Bleeding (03/11/25 13:32) Type And Screen (03/11/25 13:32) Vital Signs Date Time Temp Pulse Resp B/P (MAP) Pulse Ox O2 Delivery O2 Flow Rate FiO2 03/11/25 15:44 98.4 89 18 155/90 (111) 98 98.4 03/11/25 13:21 96 03/11/25 13:08 82 17 Room Air 0 03/11/25 13:06 99 Room Air* 0 21 03/11/25 13:03 98.5 85 18 163/37 (79) 97 98.5 03/11/25 12:34 96 03/11/25 12:22 97.4 105 20 170/82 97 97.4 Laboratory Tests Test 03/11/25 13:06 White Blood Count 5.5 10^3/uL (4.4-10.8) Departure 1 Departure Time of Disposition: 14:47 Impression: Primary Impression: Symptomatic anemia Additional Impressions: Hyperglycemia Hyponatremia Disposition: ADMITTED INPATIENT Admit to: Med Surg Condition: Guarded Critical Care Note Critical Care Time?: Yes (90 min-critical care time only) Stability Stability form required: No Heart Score Heart Score: Heart Score Response (Comments) Value History Slightly Suspicious 0 EKG Normal 0 Age >65 2 Risk Factors >3 or Hx ASHD 2 Troponin Normal limit 0 Total 4 I personally scribed for BHARATHI BAILEY MD ([email or web address]) on 03/11/25 at 13:21. Electronically submitted by Leodan Artis ([email or web address]). I personally scribed for BHARATHI BAILEY MD ([email or web address]) on 03/11/25 at 13:25. Electronically submitted by Leodan Artis ([email or web address]). I personally scribed for BHARATHI BAILEY MD ([email or web address]) on 03/11/25 at 14:29. Electronically submitted by Theresa Ayala ([email or web address]). BHARATHI BAILEY MD Mar 11, 2025 13:21
[2025-03-11 13:22] LABS: Anion Gap 11 (5-15); Chloride 99 mmol/L (98-107); Potassium 4.6 mmol/L (3.5-5.1)
[2025-03-11 13:23] LABS: Hematocrit 22.9 % (36.0-46.0); Mean Corpuscular Volume 70.1 fL (80.0-100.0)
[2025-03-11 13:24] LABS: Hemoglobin 6.9 g/dL (12.2-16.2)
[2025-03-11 13:26] LABS: Calcium 8.4 mg/dL (8.7-10.4); Carbon Dioxide 19 mmol/L (20-31); Sodium 129 mmol/L (136-145)
[2025-03-11 13:28] LABS: BUN/Creatinine Ratio 12.1 (10.0-20.0); Blood Urea Nitrogen 20 mg/dL (9-23); Glucose 149 mg/dL (74-106)
--- NOTE | 2025-03-11 13:30 | DVH ---
CHEST RADIOGRAPH Indication: sob Technique: Single frontal view of the chest was obtained Comparison: XY CHEST PORTABLE on DOS: 01/03/25, XY CHEST PORTABLE on DOS: 01/01/25, XY CHEST PORTABLE on DOS: 07/02/24 FINDINGS: Lines and Tubes: None Lungs: Stable increased interstitial markings not significantly changed from 01/03/2025 Pleura: No effusion. No pneumothorax. Cardiomediastinal contours: Stable Bones: No acute osseous abnormality. IMPRESSION: 1. No significant change from 01/03/2025.
[2025-03-11 14:16] LABS: Nucleated Red Blood Cells % 1.0 %; Total Cells Counted 100.0 (100)
[2025-03-11 14:17] LABS: Anisocytosis Slight; Ovalocytes FEW
[2025-03-11 16:06] LABS: Urine Protein, UAD 3+ (Negative)
[2025-03-11 17:42] VITALS: PULSE 85; RESP 21; O2SAT 99
[2025-03-11 18:46] VITALS: BP 180/95; PULSE 96; RESP 12; TEMP 98.5
[2025-03-11 19:05] VITALS: BP 168/77; PULSE 104; RESP 22; TEMP 97.8
--- NOTE | 2025-03-11 20:40 | DVHHPRES ---
History of Present Illness Resident Creating Document: MIRANDA WINKLER RESIDENT History of Present Illness Maria Elena Cantu is a 69-year-old female patient who presents to ED with chief complaint of nausea, vomiting of clear emesis, stabbing abdominal pain in epigastric region, weakness, chills and dyspnea which is chronic (a proximally two years) but has worsened past two days two days before her admission. These symptoms are similar to when she was previously admitted due to severe anemia secondary to peptic ulcer disease, she already required seven PRBCs in her lifetime. Patient also mentions unintentional weight loss of 20 lb in the past year. Patient had completed EGD on September 2024 which shows PUD, requires follow up with Dr. Domínguez. Denies any other associated symptoms including hematemesis, melena or any other type of bleeding. 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 Surgical history: EGD on 09/2024 which showed PUD, x3 Family history: Noncontributory Social history: Lives in [place] alone (next of kin is sister Jane). Denies current tobacco, alcohol and other drug abuse Allergies: Ibuprofen (not real allergy), star fruit Home medication: Atorvastatin, B complex, carvedilol, empagliflozin, ergocalciferol, ferrous sulfate, finererone, furosemide, hydralazine, isosorbide mononitrate, losartan, metoprolol, pantoprazole, sitagliptin Patient seen and examined at bedside. Patient continues with nausea mild episodes of vomiting with nonbloody emesis. Patient was admitted for further evaluation. Past Medical History Per HPI Past Surgical History Per HPI Family History Per HPI Past Social History Per HPI Review of Systems Review of Systems Per HPI Allergies: Coded Allergies: Ibuprofen (Verified Allergy, Unknown, 10/03/23) Uncoded Allergies: Starfruit (Allergy, Severe, 01/02/25) Exam Vital Signs Vital Signs Date Time Temp Pulse Resp B/P (MAP) Pulse Ox O2 Delivery O2 Flow Rate FiO2 03/11/25 19:30 98.1 98 17 148/58 (88) 97 98.1 03/11/25 17:42 Room Air* 0 21 Exam Patient lying in bed, in no acute distress General: Lucid, afebrile, mucosae are moist Cardiovascular: Normal S1 and S2. Holosystolic murmur best heard in apex which radiates towards axilla intensity 3/6. No gallops or rubs Respiratory: Normal ventilation mechanics. Clear lung sounds on auscultation Abdomen: Soft, nontender, no organomegaly, normal bowel sounds MSK/skin: Mobilizes 4 limbs. Skin is dry and warm. Excoriations in bilateral legs, left more than right, mild erythema on legs and dorsal aspect of bilateral forearm. Neurological: Oriented in 3 spheres. No motor no sensitive deficits. Pupils are isocoric and reactive Labs/Xrays Labs Test 03/11/25 15:30 03/11/25 13:06 03/11/25 13:02 Range/Units Urine Color Light-yellow Yellow Urine Clarity Clear Clear Urine pH 6.0 5.0-9.0 Urine Specific [place] 1.018 1.001-1.035 Urine Protein 3+ H Negative Urine Ketones Negative Negative Urine Blood 1+ H Negative /uL Urine Nitrite Negative Negative Urine Bilirubin Negative Negative Urine Urobilinogen Normal Negative mg/dL Urine Leukocyte Esterase Negative Negative /uL Urine RBC <1 0 - 4 /hpf Urine Microscopic WBC 1 0-5 /HPF Urine Squamous Epithelial Cells None seen <5 /hpf Urine Bacteria None seen None Seen /hpf Urine Glucose 1+ H Normal mg/dL White Blood Count 5.5 4.4-10.8 10^3/uL Red Blood Count 3.26 L 4.0-5.20 10^6/uL Hemoglobin 6.9 *L 12.2-16.2 g/dL Hematocrit 22.9 L 36.0-46.0 % Mean Corpuscular Volume 70.1 L 80.0-100.0 fL Mean Corpuscular Hemoglobin 21.1 L 28.0-32.0 pg Mean Corpuscular Hemoglobin Concent 30.1 L 32.0-36.0 g/dL Red Cell Distribution Width 21.5 H 11.8-14.3 % Platelet Count 396 140-450 10^3/uL Mean Platelet Volume 6.4 L 6.9-10.8 fL Neutrophils (%) (Auto) 37.0-80.0 % Lymphocytes (%) (Auto) 10.0-50.0 % Monocytes (%) (Auto) 0.0-12.0 % Basophils (%) (Auto) 0.0-2.0 % Neutrophils # (Auto) 1.6-8.6 10 ^3/uL Lymphocytes # (Auto) 0.4-5.4 10 ^3/uL Monocytes # (Auto) 0-1.3 10 ^3/uL Differential Total Cells Counted 100.0 100 Neutrophils % (Manual) 88 H 37.0-80.0 Band Neutrophils % (Manual) 1 Lymphocytes % (Manual) 4 L 10.0-50.0 Monocytes % (Manual) 6 0-12 Eosinophils % (Manual) 1 0-7 Basophils % (Manual) 0 0.0-2.0 Metamyelocytes % (manual) 0 Myelocytes % (Manual) 0 Promyelocytes % (Manual) 0 Blast Cells % (Manual) 0 Nucleated Red Blood Cells 1.0 % Reactive Lymphocytes 0 Platelet Estimate Adequate Hypochromasia (manual) Moderate Anisocytosis (manual) Slight Microcytosis Moderate Target Cells Few Ovalocytes Few Schistocytes Few Sodium Level 129 L 136-145 mmol/L Potassium Level 4.6 3.5-5.1 mmol/L Chloride Level 99 98-107 mmol/L Carbon Dioxide Level 19 L 20-31 mmol/L Anion Gap 11 5-15 Blood Urea Nitrogen 20 9-23 mg/dL Creatinine 1.65 H 0.550-1.02 mg/dL Glomerular Filtration Rate Calc 33 >90 mL/min BUN/Creatinine Ratio 12.1 10.0-20.0 Serum Glucose 149 H 74-106 mg/dL Calcium Level 8.4 L 8.7-10.4 mg/dL Troponin I High Sensitivity 20 </=34 ng/L POC Glucose 175 H 70-106 mg/dl SEPSIS Sepsis Screen Date sepsis recognized/suspect: Mar 11, 2025 Time Sepsis recognized/suspect: 1741 Recent Procedure: No On Antibiotic Therapy: No Respiratory Rate >20: No Heart Rate >90: No Temp<36 C (96.8 F) or >38.3 C: No SBP <90 or MAP <65 mmHG: No New Acute Mental Status Change: No Is the patient on CPAP, BIPAP,: No Physician Orders Chest Portable (03/11/25 13:00) Admit (03/11/25 20:33) Code Status (03/11/25:) Ondansetron Hcl (Zofran) (03/11/25 20:45) Complete Blood Count (03/12/25 04:00) Comprehensive Metabolic Panel (03/12/25 04:00) Npo (Nothing By Mouth) Diet (03/12/25 Breakfast) Echo 2d Mode Cardiac Dop (03/11/25:) Morphine Sulfate Injection (03/11/25:45) Oxygen By Nasal Cannula (03/11/25:) Stat Ekg For Chest Pain (03/11/25:) Notify Md Of Changes From Base (03/11/25:) Band Splitter For 24 Hours (03/11/25:) Emergency Dysrhythmia Protocol (03/11/25:) Rhythm Strips Once Every Shift (03/11/25:) Pantoprazole (Protonix) (03/11/25 22:00) Pantoprazole (Protonix) (03/11/25 20:45) Vitamin D, 25-Hydroxy (03/11/25:) Vitamin B12 (03/11/25:33) Thyroid Stimulating Hormone (03/11/25:) PTPTT (03/11/25:) Phosphorus (03/11/25:) Magnesium (03/11/25:) Lipid Panel (03/11/25:) Lipase (03/11/25:) Lactic Acid W/ Reflex Order (03/11/25:) Vital Signs Date Time Temp Pulse Resp B/P (MAP) Pulse Ox O2 Delivery O2 Flow Rate FiO2 03/11/25 19:30 98.1 98 17 148/58 (88) 97 98.1 03/11/25 19:05 97.8 104 22 168/77 97.8 03/11/25 18:46 98.5 96 12 180/95 98.5 03/11/25 17:42 85 21 99 Room Air* 0 21 03/11/25 17:42 98.0 85 2 166/82 (110) 99 98.0 03/11/25 15:44 98.4 89 18 155/90 (111) 98 98.4 03/11/25 13:21 96 03/11/25 13:08 82 17 Room Air 0 03/11/25 13:06 99 Room Air* 0 21 03/11/25 13:03 98.5 85 18 163/37 (79) 97 98.5 Laboratory Tests Test 03/11/25 13:06 White Blood Count 5.5 10^3/uL (4.4-10.8) Assessment/Plan Assessment/Plan ASSESSMENT Severe anemia Questionable upper GI bleed secondary to PUD Asymptomatic hypovolemic hyponatremia YOVANI hemodynamically mediated (VMN) Questionable scabieis Chronic systolic congestive heart failure (HFrEF 30%), no exacerbation Severe mitral regurgitation and moderate mitral stenosis Hypertension Dyslipidemia Diabetes PLAN Patient admitted to telemetry. Required one PRBC Patient already has history of multiple episodes of severe anemia with a total of seven PRBCs required. Consulted GI specialist Patient currently on bowel rest (NPO), on empiric IV antibiotic (ceftriaxone), IV Protonix b.i.d., indicated IV fluid resuscitation (limit amount due to hist ory of HFrEF), avoid blood thinners, on SCDs Ordered anemia workup. Indicated Benadryl for pruritus. No intermittent at this point Patient has isolated due to history of scabies (lesions are not typical of scabies) Ordered liver ultrasound to rule out cirrhosis (patient has multiple history of severe anemia, rule out esophageal varices) Goals of care discussed with patient for over 18 minutes: Full code status Discussed plan with Dr. Gaxiola, patient and nurses: Patient admitted to tele metry. Currently under empiric IV antibiotic, IV fluids, NPO and IV Protonix. Consulted GI for evaluation of need of EGD. Patient has poor prognosis. Plan discussed with: Patient, Other (Nurses) My Orders Orders - MIRANDA WINKLER RESIDENT Procedure Category Date Status Time Admit ADMIT 03/11/25 Verified 20:33 Code Status CODE 03/11/25 Verified 20:33 Ondansetron Hcl PHA 03/11/25 Verified (Zofran) 20:45 Complete Blood Count LAB 03/12/25 Verified 04:00 Comprehensive LAB 03/12/25 Verified Metabolic Panel 04:00 Npo (Nothing By DIET 03/12/25 Verified Mouth) Diet Breakfast Echo 2d Mode Cardiac US 03/11/25 Verified DOP 20:33 Morphine Sulfate PHA 03/11/25 Verified Injection 20:45 Oxygen By Nasal RT 03/11/25 Verified Cannula 20:33 Stat Ekg For Chest ASIF 03/11/25 Verified Pain 20:33 Notify Md Of Changes ASIF 03/11/25 Verified From Base 20:33 Band Splitter For [facility] 03/11/25 Verified 24 Hours 20:33 Emergency Dysrhythmia ASIF 03/11/25 Verified Protocol 20:33 Rhythm Strips Once [facility] 03/11/25 Verified Every Shift 20:33 Pantoprazole PHA 03/11/25 Verified (Protonix) 22:00 Pantoprazole PHA 03/11/25 Verified (Protonix) 20:45 Vitamin D, 25-Hydroxy LAB 03/11/25 Verified 20:33 Vitamin B12 LAB 03/11/25 Verified 20:33 Thyroid Stimulating LAB 03/11/25 Verified Hormone 20:33 PTPTT LAB 03/11/25 Verified 20:33 Phosphorus LAB 03/11/25 Verified 20:33 Magnesium LAB 03/11/25 Verified 20:33 Lipid Panel LAB 03/11/25 Verified 20:33 Lipase LAB 03/11/25 Verified 20:33 Lactic Acid W/ Reflex LAB 03/11/25 Verified Order 20:33 Date of Service: Mar 11, 2025 Billing Provider: MABEL GAXIOLA MD Common Visit Codes: 32065-[id number] INP/OBS CARE (HIGH) Secondary Visit Codes: [id number] CARE PLAN 30 MINUTES MIRANDA WINKLER RESIDENT Mar 11, 2025 20:40
[2025-03-11] MEDS ORDERED: MORPHINE SULFATE INJ 2 MG/ml SYRG IV PRN (20:45)
[2025-03-11] MEDS: PANTOPRAZOLE 40 MG/10 ML VIAL INJ IV ONE (21:22)
[2025-03-11 21:38] VITALS: BP 163/81; PULSE 96; RESP 20; TEMP 98
[2025-03-11] MEDS: ONDANSETRON HCL 4 MG/2 ML VIAL IV PRN (22:38)
[2025-03-11 23:40] LABS: Hematocrit 28.6 % (36.0-46.0); Hemoglobin 8.8 g/dL (12.2-16.2); Mean Corpuscular Hemoglobin 22.9 pg (28.0-32.0); Mean Corpuscular Volume 74.0 fL (80.0-100.0); Nucleated Red Blood Cells % 5.0 %
[2025-03-11 23:44] LABS: INR 1.16 (0.9-1.15); Partial Thromboplastin Time 30.9 SEC (24.5-34.5); Prothrombin Time 12.1 sec (9.3-11.8)
[2025-03-11 23:51] LABS: Alanine Aminotransferase 18 U/L (7-40); Albumin 3.3 g/dL (3.2-4.8); Anion Gap 8 (5-15); BUN/Creatinine Ratio 11.0 (10.0-20.0); Blood Urea Nitrogen 17 mg/dL (9-23); Carbon Dioxide 21 mmol/L (20-31); Lipase 38 U/L (12-53); Magnesium 2.0 mg/dL (1.6-2.6); Potassium 4.4 mmol/L (3.5-5.1)
[2025-03-11 23:53] LABS: Alkaline Phosphatase 121 U/L (46-116); Bilirubin, Total 2.6 mg/dL (0.2-1.0); Calcium 8.4 mg/dL (8.7-10.4); Chloride 97 mmol/L (98-107); Glucose 123 mg/dL (74-106); Sodium 126 mmol/L (136-145)
[2025-03-12 00:03] LABS: Total Protein 5.6 g/dL (5.7-8.2)
[2025-03-12] MEDS: hydrALAZINE HCL 20 MG/ML VL IV PRN (00:46)
[2025-03-12 02:09] LABS: Triglycerides 95 mg/dL (< 150)
[2025-03-12 02:11] LABS: Cholesterol 136 mg/dL (< 200)
[2025-03-12 02:20] LABS: HDL Cholesterol 63 mg/dL (40-59)
[2025-03-12] MEDS: SODIUM CHLORIDE 0.9% 1,000 ML IV ONE (06:30)
[2025-03-12] MEDS ORDERED: MAALOX PLUS or MAALOX 30 ML PO PRN (06:30)
[2025-03-12] MEDS: SODIUM CHLORIDE 0.9% 1,000 ML IV SCH (06:30)
[2025-03-12 06:43] LABS: Hematocrit 27.0 % (36.0-46.0); Hemoglobin 8.5 g/dL (12.2-16.2); Mean Corpuscular Hemoglobin 22.9 pg (28.0-32.0); Mean Corpuscular Volume 72.7 fL (80.0-100.0)
[2025-03-12 06:57] LABS: Alanine Aminotransferase 18 U/L (7-40); Alkaline Phosphatase 112 U/L (46-116); Anion Gap 9 (5-15); BUN/Creatinine Ratio 10.8 (10.0-20.0); Blood Urea Nitrogen 18 mg/dL (9-23); Carbon Dioxide 20 mmol/L (20-31); Glucose 103 mg/dL (74-106); Potassium 4.4 mmol/L (3.5-5.1)
[2025-03-12 07:06] LABS: Albumin 3.2 g/dL (3.2-4.8); Bilirubin, Total 3.1 mg/dL (0.2-1.0); Calcium 8.4 mg/dL (8.7-10.4); Chloride 98 mmol/L (98-107); Sodium 127 mmol/L (136-145); Total Protein 5.2 g/dL (5.7-8.2)
[2025-03-12 07:30] VITALS: PULSE 83; RESP 15; O2SAT 95
[2025-03-12 08:13] LABS: Anisocytosis Slight; Total Cells Counted 100.0 (100)
[2025-03-12] MEDS: HYDROmorphone HCL 2 MG/ML VL/or syr IV ONE (09:02)
--- NOTE | 2025-03-12 09:02 | DVH ---
INDICATION: Rule out liver cirrhosis TECHNIQUE: Multiple real-time sonographic images of the abdomen were obtained. COMPARISON: US KIDNEY on DOS: 05/25/24, US RT LOWER DVT on DOS: 04/10/24, US KIDNEY on DOS: 07/21/23, US KIDNEY on DOS: 01/08/23, US BILAT LOWER DVT on DOS: 01/08/23 FINDINGS: There is no obvious cirrhotic morphology. Minimal perisplenic and perihepatic ascites. There are sma ll bilateral pleural effusions. The gallbladder wall measures 0.3 cm and is normal in size. No gallstones or sludge are seen. The com mon duct measures 0.4 cm and is normal in size. No pericholecystic fluid is noted. The right kidney measures 8.2 cm and is normal in size. No hydronephrosis or large masses are seen. The left kidney measures 9.3 cm and is normal in size. No hydronephrosis or large masses are seen. The spleen measures 9.4 cm, within normal limits. The echogenicity is within normal limits. The pancreas is not well visualized. The visualized portions of the IVC and aorta are grossly unremarkable. IMPRESSION: 1. Poor visualization of the liver with no obvious cirrhotic morphology. 2. Minimal ascites in the upper abdomen. 3. Normal size bilateral kidneys with no hydronephrosis. 4. Small bilateral pleural effusions right greater than left.
[2025-03-12] MEDS: PANTOPRAZOLE 40 MG/10 ML VIAL INJ IV SCH (11:20)
--- NOTE | 2025-03-12 14:58 | DVHPN2 ---
Reviewed: Care Plan, H&P, Labs, Medications, Previous Orders, Radiology Changes from previous H/P or p: No Changes Objective Vitals Vital Signs Date Time Temp Pulse Resp B/P (MAP) Pulse Ox O2 Delivery O2 Flow Rate FiO2 03/12/25 13:00 97.3 85 21 162/78 (106) 93 97.3 03/12/25 07:30 Room Air* 0 21 Intake/Output Intake and Output 03/12/25 07:00 Intake Total 1000 ml Output Total 0 ml Balance 1000 ml Blood Product 1000 ml Output Urine Total 0 ml Medications Current Medications Medications Dose Ordered Sig/Yesenia Route Start Time Stop Time Status Last Admin Dose Admin Ondansetron HCl 4 mg Q4HP PRN IV 03/11/25 20:45 03/11/25 22:38 4 MG Morphine Sulfate 2 mg Q4HPRN PRN IV 03/11/25 20:45 Pantoprazole Sodium 40 mg BID IV 03/12/25 10:00 03/12/25 11:20 40 MG Hydralazine HCl 10 mg Q8HP PRN IV 03/12/25 00:30 03/12/25 00:46 10 MG Ceftriaxone Sodium 50 ml @ 100 mls/hr DAILY@09 IV 03/12/25 09:00 03/12/25 09:32 100 MLS/HR Al Hydrox/Mg Hydrox/Simethicone 15 ml Q8HP PRN PO 03/12/25 06:30 Diphenhydramine HCl 25 mg Q4HP PRN IV 03/12/25 06:30 Sodium Chloride 1,000 ml @ 75 mls/hr [id number] IV 03/12/25 06:30 Laboratory Results Laboratory Tests 03/12/25 05:52 Chemistry Test 03/11/25 23:00 03/12/25 05:52 Albumin 3.3 g/dL (3.2-4.8) 3.2 g/dL (3.2-4.8) Calcium Level 8.4 mg/dL (8.7-10.4) L 8.4 mg/dL (8.7-10.4) L Magnesium Level 2.0 mg/dL (1.6-2.6) Phosphorus Level 2.8 mg/dL (2.4-5.1) Total Protein 5.6 g/dL (5.7-8.2) L 5.2 g/dL (5.7-8.2) L Coagulation Test 03/11/25 23:00 Prothrombin Time 12.1 sec (9.3-11.8) H Prothrombin Time INR 1.16 (0.9-1.15) H Activated Partial Thromboplast Time 30.9 SEC (24.5-34.5) Lipid panel Test 03/11/25 23:00 Cholesterol Level 136 mg/dL (< 200) HDL Cholesterol 63 mg/dL (40-59) H Lipase 38 U/L (12-53) Triglycerides Level 95 mg/dL (< 150) LFT Test 03/11/25 23:00 03/12/25 05:52 Alanine Aminotransferase (ALT) 18 U/L (7-40) 18 U/L (7-40) Alkaline Phosphatase 121 U/L (46-116) H 112 U/L (46-116) Aspartate Amino Transferase (AST) 17 U/L (13-40) 16 U/L (13-40) Total Bilirubin 2.6 mg/dL (0.2-1.0) H 3.1 mg/dL (0.2-1.0) H Urinalysis Test 03/11/25 15:30 Urine Color Light-yellow (Yellow) Urine Clarity Clear (Clear) Urine pH 6.0 (5.0-9.0) Urine Specific [place] 1.018 (1.001-1.035) Urine Protein 3+ (Negative) H Urine Ketones Negative (Negative) Urine Blood 1+ /uL (Negative) H Urine Nitrite Negative (Negative) Urine Bilirubin Negative (Negative) Urine Urobilinogen Normal mg/dL (Negative) Urine Leukocyte Esterase Negative /uL (Negative) Urine RBC <1 /hpf (0 - 4) Urine Microscopic WBC 1 /HPF (0-5) Urine Squamous Epithelial Cells None seen /hpf (<5) Urine Bacteria None seen /hpf (None Seen) Urine Glucose 1+ mg/dL (Normal) H Labs and/or images reviewed: Labs reviewed by me, Image(s) reviewed by me Assessment/Plan Assessment/Plan Severe anemia hemoglobin 6.9 improved to 8.8 after 1 unit RBC transfusion Questionable upper GI bleed secondary to PUD : Consult for Dr. Barillas: Pantoprazole Asymptomatic hypovolemic hyponatremia YOVANI hemodynamically mediated (VMN) Questionable scabieis Chronic systolic congestive heart failure (HFrEF 30%), no exacerbation Severe mitral regurgitation and moderate mitral stenosis Hypertension Dyslipidemia Diabetes Time spent 70 minutes Advanced care planning time 20 minutes Patient is full code Plan discussed with: Patient Date of Service: Mar 12, 2025 Billing Provider: ABRIL SAAB MD Common Visit Codes: [id number] CARE 30-74 MIN ABRIL SAAB MD Mar 12, 2025 14:58
[2025-03-12] MEDS: OMNIPAQUE 12mg/ml 500ml ORAL SOLUTION PO ONE (17:42)
[2025-03-12 18:16] LABS: Hematocrit 30.7 % (36.0-46.0); Hemoglobin 9.2 g/dL (12.2-16.2); Mean Corpuscular Hemoglobin 22.3 pg (28.0-32.0); Mean Corpuscular Volume 74.2 fL (80.0-100.0); Nucleated Red Blood Cells % 1.7 %
--- NOTE | 2025-03-12 18:22 | DVHINCON2 ---
Date of service: Mar 12, [address] Sarmiento Reason for Consultation Anemia nausea vomiting abdominal pain History of Present Illness This 69-year-old female presented to the emergency room with the complaints of nausea vomiting abdominal pain which was severe in the epigastric area unable to keep any food down weakness chills since three days prior to admission Denied any hematemesis or melena but has been anemic for the last two years Has history of ulcer disease apparently diagnosed in September [address] Domínguez Patient denies any hematemesis or melena but has severe anorexia and weakness Patient has got weight loss in about 20 lb in the last one year Patient an ultrasound done in the ER which was unremarkable Past Medical History Hypertension anemia hyperlipidemia had blood transfusions in the past patient also had a peptic ulcer disease Past Surgical History Had EGD in September 2023 which showed an ulcer Family History: FH: congestive heart failure G8 MOTHER, Family history: Cardiovascular disease G8 SISTER, Onset:50's - 60 Family history: Diabetes mellitus G8 MOTHER, , Onset:50's - 60 G8 SISTER, Onset:40's - 50 Family History Noncontributory Social History Denies smoking or drinking Allergies: Coded Allergies: Ibuprofen (Verified Allergy, Unknown, 10/03/23) Uncoded Allergies: Starfruit (Allergy, Severe, 01/02/25) Home Meds Active Scripts Ferrous Sulfate (Iron) 325 Mg Tab, 325 MG PO BID for 30 Days, #60 TAB 2 Refills Prov:OFE TORRES NP 01/04/25 Furosemide (Lasix) 40 Mg Tab, 40 MG PO BID for 30 Days, #60 TAB Prov:OFE TORRES NP 01/04/25 Carvedilol (COREG) 12.5 Mg Tab, 12.5 MG OR BID for 30 Days, #60 TAB 3 Refills Prov:OFE TORRES NP 01/04/25 Cefdinir (Cefdinir) 300 Mg Cap, 1 CAP PO BID for 7 Days, #14 CAP Prov:TERESA HERRMANN MD 07/09/24 Isosorbide Mononitrate (Isosorbide Mononitrate Er) 30 Mg Tab, 1 TAB PO DAILY for 30 Days, #30 TAB 5 Refills Prov:ALEJANDRO LEIGH 07/05/24 B-Complex W/ C & Folic Acid (Nephro-[place]) Tab, 1 TAB PO DAILY for 30 Days, #30 TAB 3 Refills Prov:KERA BOLTON MD 06/03/24 Metoprolol Succinate (Toprol Xl) 50 Mg Tab, 50 MG PO DAILY for 30 Days, #30 TAB 2 Refills Prov:KERA BOLTON MD 06/03/24 Furosemide (Lasix) 40 Mg Tab, 40 MG PO QAM for 30 Days, #30 TAB 3 Refills Prov:KERA BOLTON MD 06/03/24 Pantoprazole Sodium Sesquihydr (Pantoprazole Sodium) 40 Mg Tab, 40 MG PO DAILY for 30 Days, #30 TAB 2 Refills Prov:KERA BOLTON MD 06/03/24 Losartan Potassium (Losartan Potassium) 100 Mg Tab, 100 MG PO DAILY for 30 Days, #30 TAB 2 Refills Prov:KERA BOLTON MD 06/03/24 Empagliflozin (Jardiance) 10 Mg Tab, 10 MG PO DAILY for 30 Days, #30 TAB 2 Refills Prov:KERA BOLTON MD 06/03/24 Atorvastatin Calcium (ATORVASTATIN CALCIUM) 20 Mg Tab, 20 MG PO HS for 30 Days, #30 TAB 3 Refills Prov:KERA BOLTON MD 06/03/24 Ferrous Sulfate (Ferrous Sulfate) 325 Mg Tab, 1 TAB PO EVERY OTHER DAY for 30 Days, #15 TAB Prov:LIN MADRIGAL MD 02/28/24 Ergocalciferol (VITAMIN D 14206 UNIT) 50,000 [place], [address] UNIT PO Q7D for 12 Days, #12 CAP Prov:MABEL GUZMAN MD 01/11/23 Empagliflozin (Jardiance) 10 Mg Tab, 10 MG PO QAM for 30 Days, #30 TAB Prov:MABEL GUZMAN MD 01/11/23 Reported Medications Sitagliptin Phosphate (Januvia) 50 Mg Tab, 1 TAB PO DAILY, #30 TAB 5 Refills 01/02/25 Hydralazine Hcl (Hydralazine Hcl) 50 Mg Tab, 100 MG PO BID 10/03/23 Furosemide (Furosemide) 40 Mg Tab, 1 TAB PO DAILY 10/03/23 Finerenone (Kerendia) 10 Mg Tab, 1 TAB PO DAILY 10/01/23 Metoprolol Succinate (Metoprolol Succinate Er) 100 Mg Tab, 1 TAB PO DAILY 10/01/23 Losartan Potassium (Losartan Potassium) 100 Mg Tab, 100 MG PO DAILY for 30 Days, MG 07/12/21 Current Medications Current Medications Medications (Trade) Dose Ordered Sig/Yesenia Route PRN Reason Start Time Stop Time Status Last Admin Ondansetron HCl (Zofran) 4 mg Q4HP PRN IV NAUSEA / VOMITING 03/11/25 20:45 03/11/25 22:38 Morphine Sulfate 2 mg Q4HPRN PRN IV SEVERE PAIN (7-10 PAIN SCALE) 03/11/25 20:45 Pantoprazole Sodium (Protonix) 40 mg BID IV 03/12/25 10:00 03/12/25 11:20 Hydralazine HCl (Apresoline Injection) 10 mg Q8HP PRN IV SBP>150 03/12/25 00:30 03/12/25 00:46 Ceftriaxone Sodium 50 ml @ 100 mls/hr DAILY@09 IV 03/12/25 09:00 03/12/25 09:32 Al Hydrox/Mg Hydrox/Simethicone (Maalox Plus) 15 ml Q8HP PRN PO FOR STOMACH DISTRESS 03/12/25 06:30 Diphenhydramine HCl (Benadryl Injection) 25 mg Q4HP PRN IV FOR ITCHING 03/12/25 06:30 Sodium Chloride 1,000 ml @ 75 mls/hr [id number] IV 03/12/25 06:30 Review of Systems Noncontributory Vital Signs Vital Signs Date Time Temp Pulse Resp B/P (MAP) Pulse Ox O2 Delivery O2 Flow Rate FiO2 03/12/25 17:00 86 14 176/79 (111) 93 03/12/25 13:00 97.3 97.3 03/12/25 07:30 Room Air* 0 21 Physical Exam Moderately built and nourished male in no acute distress but uncomfortable from the pain HEENT examination mild pallor no icterus Lungs are clear Cardiovascular unremarkable Abdomen is soft mild epigastric tenderness no rigidity no guarding No masses Extremities no edema Neuro grossly intact Labs/Diagnostic Data Labs Test 03/12/25 17:28 03/12/25 05:52 03/11/25 23:13 03/11/25 23:00 Range/Units Differential Total Cells Counted 100.0 100 Neutrophils % (Manual) 81 H 37.0-80.0 Band Neutrophils % (Manual) 0 Lymphocytes % (Manual) 18 10.0-50.0 Monocytes % (Manual) 1 0-12 Eosinophils % (Manual) 0 0-7 Basophils % (Manual) 0 0.0-2.0 Metamyelocytes % (manual) 0 Myelocytes % (Manual) 0 Promyelocytes % (Manual) 0 Blast Cells % (Manual) 0 Reactive Lymphocytes 0 Platelet Estimate Adequate Hypochromasia (manual) Moderate Anisocytosis (manual) Slight Microcytosis Moderate Stool Occult Blood Negative Negative Stool Occult Blood Sample #3 Negative Eosinophils (%) (Auto) 1.9 0.0-7.0 % Eosinophils # (Auto) 0.1 0-0.8 10 ^3/uL Basophils # (Auto) 0.1 0-0.2 10 ^3/uL Nucleated Red Blood Cells 5.0 % Reticulocyte Count (auto) 2.56 H 0.5-1.5 % Prothrombin Time 12.1 H 9.3-11.8 sec Prothrombin Time INR 1.16 H 0.9-1.15 Activated Partial Thromboplast Time 30.9 24.5-34.5 SEC Lactic Acid Level 1.1 0.4-2.0 mmol/L Phosphorus Level 2.8 2.4-5.1 mg/dL Magnesium Level 2.0 1.6-2.6 mg/dL Ammonia 22 11-32 umol/L Triglycerides Level 95 < 150 mg/dL Cholesterol Level 136 < 200 mg/dL LDL Cholesterol 59 < 100 mg/dL HDL Cholesterol 63 H 40-59 mg/dL Test 03/11/25 15:30 03/11/25 13:06 03/11/25 13:02 Range/Units Urine Color Light-yellow Yellow Urine Clarity Clear Clear Urine pH 6.0 5.0-9.0 Urine Specific [place] 1.018 1.001-1.035 Urine Protein 3+ H Negative Urine Ketones Negative Negative Urine Blood 1+ H Negative /uL Urine Nitrite Negative Negative Urine Bilirubin Negative Negative Urine Urobilinogen Normal Negative mg/dL Urine Leukocyte Esterase Negative Negative /uL Urine RBC <1 0 - 4 /hpf Urine Microscopic WBC 1 0-5 /HPF Urine Squamous Epithelial Cells None seen <5 /hpf Urine Bacteria None seen None Seen /hpf Urine Glucose 1+ H Normal mg/dL Target Cells Few Ovalocytes Few Schistocytes Few Hemoglobin A1c 5.8 H <5.7 % A1C Ferritin 11.5 10-291 ng/mL Lactate Dehydrogenase 281 H 120-246 U/L Troponin I High Sensitivity 20 </=34 ng/L Vitamin B12 Level 778 211-911 pg/mL Vitamin D 25-Hydroxy 31.6 30.0-100 ng/mL Thyroid Stimulating Hormone (TSH) 2.70 0.55-4.78 uIU/mL POC Glucose 175 H 70-106 mg/dl Assessment 69-year-old female with complaints of abdominal pain nausea vomiting unable to keep food down severe anorexia weight loss has history of ulcer disease in the past which was diagnosed in 2023 May Denied any hematemesis or melena but anemic History severe anemia in the past requiring transfer blood transfusions over the years Clinical impression Abdominal pain nausea anorexia history of diabetes hypertension and severe anemia Stool occult blood is negative Ultrasound negative Did not have a CT scan this admission Possibilities are peptic ulcer disease gastric ulcer rule out malignancy Possible hematological disorders with chronic anemia Possible diabetic gastroparesis Plan/Recommendation Recommend CT scan of the abdomen and pelvis with oral contrast Follow the hemoglobin closely PPIs Depending upon the CT scan may need EGD and even colonoscopy Thank you Dr. Barillas Plan discussed with: Patient JUDY BARILLAS MD Mar 12, 2025 18:22
[2025-03-12 18:30] LABS: Alanine Aminotransferase 18 U/L (7-40); Albumin 3.2 g/dL (3.2-4.8); Anion Gap 9 (5-15); BUN/Creatinine Ratio 11.0 (10.0-20.0); Blood Urea Nitrogen 18 mg/dL (9-23); Calcium 8.7 mg/dL (8.7-10.4); Carbon Dioxide 21 mmol/L (20-31); Chloride 99 mmol/L (98-107); Glucose 94 mg/dL (74-106); Lipase 34 U/L (12-53); Potassium 4.4 mmol/L (3.5-5.1)
[2025-03-12 18:31] LABS: Alkaline Phosphatase 123 U/L (46-116); Bilirubin, Total 2.3 mg/dL (0.2-1.0); Sodium 129 mmol/L (136-145); Total Protein 5.3 g/dL (5.7-8.2)
--- NOTE | 2025-03-12 22:57 | DVH ---
Exam: CT CT AB PEL WITH ORAL CON ONLY History: ANEMIA/ABD PAIN Comparison Study: CT CT AB PEL WO CON-NO ORAL OR IV on DOS: 10/01/23 Technique: Multidetector spiral CT of the abdomen was performed from lung bases to pubic symphysis. I maging was performed without IV contrast. Axial, coronal and sagittal multiplanar reformats were obta ined from the axial data set by the technologist. Radiation Dose : 1. Abdomen/Pelvis: CTDIvol 12.91 mGy, DLP 701.0 mGy*cm. x Findings: Evaluation of solid organs is limited due to lack of intravenous contrast use. Lung Bases: Moderate right and small left-sided pleural effusions. Passive atelectatic changes in bot h lower lobes. Liver: The liver is normal in size. No focal lesions. Gallbladder and Biliary Tree: Unremarkable Spleen: Unremarkable Pancreas: The pancreas is grossly normal in appearance. Adrenal Glands: Unremarkable Kidneys: Kidneys are grossly normal without calculi or hydronephrosis. Bladder: Grossly unremarkable for degree of distention. Bowel: The stomach is grossly normal in appearance. Small bowel and colon are normal in caliber and d istribution. Normal appendix is visualized in the right lower quadrant without findings of appendicit is. Ascites: Small volume ascites. Lymphadenopathy: No mesenteric, retroperitoneal or periportal lymphadenopathy. Abdominal Wall and Mesentery: Generalized soft tissue edema.. Vasculature: The visualized abdominal aorta is normal in size and caliber. Evaluation of abdominal a nd pelvic vessels is limited due to lack of intravenous contrast. Pelvic Organs: Unremarkable Musculoskeletal: No aggressive focal bony lesions, acute fractures or dislocation. IMPRESSION: No acute abdominal or pelvic findings. Moderate right and small left-sided pleural effusions. Passive atelectatic changes within both lower lobes. Radiation optimization: All CT scans at this facility use at least one of these dose optimization emanuel hniques: automated exposure control mA and/or kV adjustment per patient size (includes targeted exam s where dose is matched to clinical indication) or iterative reconstruction.
[2025-03-12] MEDS: diphenhydrAMINE HCL 50 MG/1 ML VL IV PRN (23:27)
[2025-03-13] MEDS: LABETALOL HCL 20 MG/4 ML VL IV PRN
[2025-03-13 08:00] VITALS: PULSE 64; RESP 16; O2SAT 98
--- NOTE | 2025-03-13 13:52 | DVHPN2 ---
Reviewed: Care Plan, H&P, Labs, Medications, Previous Orders, Radiology Changes from previous H/P or p: No Changes Objective Vitals Vital Signs Date Time Temp Pulse Resp B/P (MAP) Pulse Ox O2 Delivery O2 Flow Rate FiO2 03/13/25 11:49 71 182/79 03/13/25 10:00 16 98 03/13/25 08:00 97.7 97.7 03/13/25 08:00 Nasal Cannula* 2 28 Intake/Output Intake and Output 03/13/25 07:00 Intake Total 50 ml Balance 50 ml Intake IV Total 50 ml Medications Current Medications Medications Dose Ordered Sig/Yesenia Route Start Time Stop Time Status Last Admin Dose Admin Ondansetron HCl 4 mg Q4HP PRN IV 03/11/25 20:45 03/11/25 22:38 4 MG Morphine Sulfate 2 mg Q4HPRN PRN IV 03/11/25 20:45 Pantoprazole Sodium 40 mg BID IV 03/12/25 10:00 03/13/25 09:44 40 MG Hydralazine HCl 10 mg Q8HP PRN IV 03/12/25 00:30 03/13/25 06:51 10 MG Ceftriaxone Sodium 50 ml @ 100 mls/hr DAILY@09 IV 03/12/25 09:00 03/13/25 09:44 100 MLS/HR Al Hydrox/Mg Hydrox/Simethicone 15 ml Q8HP PRN PO 03/12/25 06:30 Diphenhydramine HCl 25 mg Q4HP PRN IV 03/12/25 06:30 03/13/25 09:44 25 MG Sodium Chloride 1,000 ml @ 75 mls/hr [id number] IV 03/12/25 06:30 03/12/25 20:30 75 MLS/HR Labetalol HCl 10 mg Q2HPRN PRN IV 03/13/25 00:00 03/13/25 11:49 10 MG Laboratory Results Laboratory Tests 03/12/25 17:28 Chemistry Test 03/12/25 17:28 Albumin 3.2 g/dL (3.2-4.8) Calcium Level 8.7 mg/dL (8.7-10.4) Total Protein 5.3 g/dL (5.7-8.2) L Lipid panel Test 03/12/25 17:28 Lipase 34 U/L (12-53) LFT Test 03/12/25 17:28 Alanine Aminotransferase (ALT) 18 U/L (7-40) Alkaline Phosphatase 123 U/L (46-116) H Aspartate Amino Transferase (AST) 17 U/L (13-40) Total Bilirubin 2.3 mg/dL (0.2-1.0) H Urinalysis Test 03/11/25 15:30 Urine Color Light-yellow (Yellow) Urine Clarity Clear (Clear) Urine pH 6.0 (5.0-9.0) Urine Specific [place] 1.018 (1.001-1.035) Urine Protein 3+ (Negative) H Urine Ketones Negative (Negative) Urine Blood 1+ /uL (Negative) H Urine Nitrite Negative (Negative) Urine Bilirubin Negative (Negative) Urine Urobilinogen Normal mg/dL (Negative) Urine Leukocyte Esterase Negative /uL (Negative) Urine RBC <1 /hpf (0 - 4) Urine Microscopic WBC 1 /HPF (0-5) Urine Squamous Epithelial Cells None seen /hpf (<5) Urine Bacteria None seen /hpf (None Seen) Urine Glucose 1+ mg/dL (Normal) H Labs and/or images reviewed: Labs reviewed by me, Image(s) reviewed by me Assessment/Plan Assessment/Plan Severe anemia hemoglobin 6.9 improved to 8.8 after 1 unit RBC transfusion Questionable upper GI bleed secondary to PUD : Consult for Dr. Barillas: Pantoprazole Asymptomatic hypovolemic hyponatremia YOVANI hemodynamically mediated (VMN) Chronic systolic congestive heart failure (HFrEF 30%), no exacerbation Severe mitral regurgitation and moderate mitral stenosis Hypertension Dyslipidemia Diabetes Time spent 50 minutes Advanced care planning time 20 minutes Patient is full code Plan discussed with: Patient My Orders Orders - ABRIL SAAB MD Procedure Category Date Status Time * Gi Dvh Customer Order Clerk CONS 03/12/25 Transmitted 14:56 Date of Service: Mar 13, 2025 Billing Provider: ABRIL SAAB MD Common Visit Codes: [id number] INP/OBS CARE(HIGH) ABRIL SAAB MD Mar 13, 2025 13:52
--- NOTE | 2025-03-13 16:29 | DVHPN2 ---
Progress Note - Dictate Date Seen: Mar 13, 2025 Subjective Patient is feeling better no nausea vomiting but on anorexia slightly CT scan showed no gross abnormality No gross bleeding seen Hemoglobin is low but stable vital signs Vital Sign Date Time Temp Pulse Resp B/P (MAP) Pulse Ox O2 Delivery O2 Flow Rate FiO2 03/13/25 13:00 66 163/78 03/13/25 10:00 16 98 03/13/25 08:00 97.7 97.7 03/13/25 08:00 Nasal Cannula* 2 28 Total Intake and Output 03/12/25 03/12/25 03/13/25 15:00 23:00 07:00 Intake Total 50 ml Balance 50 ml medications Current Medications Medications Dose Ordered Sig/Yesenia Route Start Time Stop Time Status Last Admin Dose Admin Ondansetron HCl 4 mg Q4HP PRN IV 03/11/25 20:45 03/11/25 22:38 4 MG Morphine Sulfate 2 mg Q4HPRN PRN IV 03/11/25 20:45 Pantoprazole Sodium 40 mg BID IV 03/12/25 10:00 03/13/25 09:44 40 MG Hydralazine HCl 10 mg Q8HP PRN IV 03/12/25 00:30 03/13/25 06:51 10 MG Ceftriaxone Sodium 50 ml @ 100 mls/hr DAILY@09 IV 03/12/25 09:00 03/13/25 09:44 100 MLS/HR Al Hydrox/Mg Hydrox/Simethicone 15 ml Q8HP PRN PO 03/12/25 06:30 Diphenhydramine HCl 25 mg Q4HP PRN IV 03/12/25 06:30 03/13/25 09:44 25 MG Sodium Chloride 1,000 ml @ 75 mls/hr [id number] IV 03/12/25 06:30 03/12/25 20:30 75 MLS/HR Labetalol HCl 10 mg Q2HPRN PRN IV 03/13/25 00:00 03/13/25 11:49 10 MG objective Soft abdomen no rigidity no guarding bowel sounds normal laboratory and microbiology Laboratory Tests 03/12/25 17:28 Test 03/12/25 17:28 Range/Units Serum Glucose 94 74-106 mg/dL Assessment/Plan 69-year-old female with complaints of abdominal pain nausea vomiting unable to keep food down severe anorexia weight loss has history of ulcer disease in the past which was diagnosed in 2023 May Denied any hematemesis or melena but anemic History severe anemia in the past requiring transfer blood transfusions over the years Clinical impression Abdominal pain nausea anorexia history of diabetes hypertension and severe anemia Stool occult blood is negative Ultrasound negative CT scan showed no gross abnormalities Hemoglobin is stable but low We will recommend an EGD evaluation if agreeable otherwise which can be done as an outpatient also if patient agreeable we will arrange for the same tomorrow Rodrigou Plan discussed with: Patient CC Plasma Assessment Blood Product Administration S: [id number] JUDY ALMANZA MD Mar 13, 2025 16:29
[2025-03-14] VITALS (9 sets, daily range): BP systolic 128–168; BP diastolic 69–91; PULSE 78–90; RESP 13–19; TEMP 97.6–98.2; O2SAT 95–97
[2025-03-14 05:07] LABS: Nucleated Red Blood Cells % 0.8 %
[2025-03-14 05:08] LABS: Hematocrit 28.0 % (36.0-46.0); Hemoglobin 8.6 g/dL (12.2-16.2); Mean Corpuscular Hemoglobin 22.8 pg (28.0-32.0); Mean Corpuscular Volume 73.9 fL (80.0-100.0)
[2025-03-14 05:53] LABS: Alanine Aminotransferase 15 U/L (7-40); Anion Gap 10 (5-15); BUN/Creatinine Ratio 9.1 (10.0-20.0); Bilirubin, Total 0.8 mg/dL (0.2-1.0); Blood Urea Nitrogen 17 mg/dL (9-23); Carbon Dioxide 21 mmol/L (20-31); Chloride 102 mmol/L (98-107); Potassium 4.5 mmol/L (3.5-5.1)
[2025-03-14 05:58] LABS: Albumin 3.0 g/dL (3.2-4.8); Alkaline Phosphatase 118 U/L (46-116); Calcium 8.6 mg/dL (8.7-10.4); Glucose 124 mg/dL (74-106); Sodium 133 mmol/L (136-145); Total Protein 5.1 g/dL (5.7-8.2)
--- NOTE | 2025-03-14 11:09 | DVHPN2 ---
Reviewed: Care Plan, H&P, Labs, Medications, Previous Orders, Radiology Changes from previous H/P or p: No Changes Objective Vitals Vital Signs Date Time Temp Pulse Resp B/P (MAP) Pulse Ox O2 Delivery O2 Flow Rate FiO2 03/14/25 09:00 98.2 79 18 153/69 (97) 95 98.2 03/14/25 03:23 Room Air* 0 21 Intake/Output Intake and Output 03/14/25 07:00 Intake Total 50 ml Balance 50 ml Intake IV Total 50 ml # Voids 1 Medications Current Medications Medications Dose Ordered Sig/Yesenia Route Start Time Stop Time Status Last Admin Dose Admin Ondansetron HCl 4 mg Q4HP PRN IV 03/11/25 20:45 03/11/25 22:38 4 MG Morphine Sulfate 2 mg Q4HPRN PRN IV 03/11/25 20:45 Pantoprazole Sodium 40 mg BID IV 03/12/25 10:00 03/14/25 09:03 40 MG Hydralazine HCl 10 mg Q8HP PRN IV 03/12/25 00:30 03/14/25 03:14 10 MG Ceftriaxone Sodium 50 ml @ 100 mls/hr DAILY@09 IV 03/12/25 09:00 03/14/25 09:05 100 MLS/HR Al Hydrox/Mg Hydrox/Simethicone 15 ml Q8HP PRN PO 03/12/25 06:30 Diphenhydramine HCl 25 mg Q4HP PRN IV 03/12/25 06:30 03/14/25 04:36 25 MG Sodium Chloride 1,000 ml @ 75 mls/hr [id number] IV 03/12/25 06:30 03/12/25 20:30 75 MLS/HR Labetalol HCl 10 mg Q2HPRN PRN IV 03/13/25 00:00 03/14/25 05:29 10 MG Laboratory Results Laboratory Tests 03/14/25 04:51 Chemistry Test 03/14/25 04:51 Albumin 3.0 g/dL (3.2-4.8) L Calcium Level 8.6 mg/dL (8.7-10.4) L Total Protein 5.1 g/dL (5.7-8.2) L LFT Test 03/14/25 04:51 Alanine Aminotransferase (ALT) 15 U/L (7-40) Alkaline Phosphatase 118 U/L (46-116) H Aspartate Amino Transferase (AST) 17 U/L (13-40) Total Bilirubin 0.8 mg/dL (0.2-1.0) Urinalysis Test 03/11/25 15:30 Urine Color Light-yellow (Yellow) Urine Clarity Clear (Clear) Urine pH 6.0 (5.0-9.0) Urine Specific [place] 1.018 (1.001-1.035) Urine Protein 3+ (Negative) H Urine Ketones Negative (Negative) Urine Blood 1+ /uL (Negative) H Urine Nitrite Negative (Negative) Urine Bilirubin Negative (Negative) Urine Urobilinogen Normal mg/dL (Negative) Urine Leukocyte Esterase Negative /uL (Negative) Urine RBC <1 /hpf (0 - 4) Urine Microscopic WBC 1 /HPF (0-5) Urine Squamous Epithelial Cells None seen /hpf (<5) Urine Bacteria None seen /hpf (None Seen) Urine Glucose 1+ mg/dL (Normal) H Assessment/Plan Assessment/Plan Severe anemia hemoglobin 6.9 improved to 8.8 after 1 unit RBC transfusion Questionable upper GI bleed secondary to PUD : Consult for Dr. Barillas: Pantoprazole Asymptomatic hypovolemic hyponatremia YOVANI hemodynamically mediated (VMN) Chronic systolic congestive heart failure (HFrEF 30%), no exacerbation Severe mitral regurgitation and moderate mitral stenosis Hypertension Dyslipidemia History of scabies on the buttocks: Permethrin cream Diabetes RN Don at bed side Time spent 50 minutes Advanced care planning time 20 minutes Patient is full code Patient's lives alone Plan discussed with: Patient My Orders Orders - ABRIL SAAB MD Procedure Category Date Status Time * Processing Lead CONS 03/14/25 Transmitted Consult 04:56 Hepatitis B Surface LAB 03/14/25 In Process Antigen 04:56 Hepatitis C Antibody LAB 03/14/25 In Process 04:56 * Dietary Consult CONS 03/14/25 Transmitted 04:56 Date of Service: Mar 14, 2025 Billing Provider: ABRIL SAAB MD Common Visit Codes: [id number] INP/OBS CARE(HIGH) ABRIL SAAB MD Mar 14, 2025 11:09
[2025-03-14] MEDS: MIDAZOLAM HCL 2MG/2ML 2ml VIAL (1mg/ml) ONE (22:27)
[2025-03-14] MEDS: fentaNYL CITRATE 100 MCG/2 ML VL ONE (22:27)
[2025-03-14] MEDS ORDERED: LIDOCAINE VISCOUS 2% 15ML UD ONE (22:29)
--- NOTE | 2025-03-14 22:48 | DVHOP2 ---
Operative Report DATE OF PROCEDURE: 03/14/25 INDICATIONS FOR THE PROCEDURE: 03/14/2025 PROCEDURE PERFORMED: 1. Esophagogastroduodenoscopy and biopsy Esophagogastroduodenoscopy and polypectomy by biopsy of two gastric polyps POSTOPERATIVE DIAGNOSIS: Small hiatal hernia mild esophagitis LA classification B Erosive gastritis in the antrum no ulcers no active bleeding now Erosive duodenitis of the bulb no active bleeding Two small gastric polyp removed by biopsy forceps 5 mm to 6 mm in diameter INFORMED CONSENT: The risks and benefits and alternatives were explained to the patient and informed consent was obtained. PROCEDURE IN DETAIL: The patient was kept NPO after midnight. In the endoscopy room, she was given IV fentanyl 50 mcg and Versed,2 mg and titrated slowly to get her sedated. Olympus gastroscope was passed through the oropharynx into the stomach and the duodenum, and the findings were as follows. Esophagus: 1 cm hiatal hernia Very mild esophagitis classification B No Esophageal ulcer No Esophageal stricture No varices No bleeding Stomach: Fundus: Normal Body and antrum Body to gastric polyp 5-6 mm removed by biopsy forceps In the antrum erosive gastritis no bleeding biopsies taken Pylorus normal Duodenum Erosive duodenitis of the bulb no ulcers no bleeding tient ENDOSCOPIC IMPRESSION: Small hiatal hernia mild esophagitis LA classification B Erosive gastritis in the antrum no ulcers no active bleeding now Erosive duodenitis of the bulb no active bleeding Two small gastric polyp removed by biopsy forceps 5 mm to 6 mm in diameter SUGGESTIONS: Await the biopsy results Treatment with PPIs and Carafate Anemia persist may need further evaluation including colonoscopy etc. which could be done as an outpatient will increase the diet and watch closely the hemoglobin With warm regards, JUDY Hanson MD Mar 14, 2025 22:48
[2025-03-15] VITALS (8 sets, daily range): BP systolic 120–165; BP diastolic 75–81; PULSE 77–108; RESP 17–19; TEMP 97.6–98.8; O2SAT 95–100
[2025-03-15 08:25] LABS: Alanine Aminotransferase 17 U/L (7-40); Alkaline Phosphatase 93 U/L (46-116); Anion Gap 10 (5-15); BUN/Creatinine Ratio 7.3 (10.0-20.0); Blood Urea Nitrogen 12 mg/dL (9-23); Chloride 106 mmol/L (98-107); Glucose 103 mg/dL (74-106); Potassium 4.8 mmol/L (3.5-5.1)
[2025-03-15 08:27] LABS: Bilirubin, Total 0.8 mg/dL (0.2-1.0)
[2025-03-15 08:28] LABS: Albumin 2.8 g/dL (3.2-4.8); Calcium 8.2 mg/dL (8.7-10.4); Carbon Dioxide 19 mmol/L (20-31); Sodium 135 mmol/L (136-145); Total Protein 4.8 g/dL (5.7-8.2)
--- NOTE | 2025-03-15 11:08 | DVHPN2 ---
Reviewed: Care Plan, H&P, Labs, Medications, Previous Orders, Radiology Changes from previous H/P or p: No Changes Objective Vitals Vital Signs Date Time Temp Pulse Resp B/P (MAP) Pulse Ox O2 Delivery O2 Flow Rate FiO2 03/15/25 10:33 165/81 03/15/25 09:00 98.4 89 17 96 98.4 03/14/25 22:50 Nasal Cannula 2.0 03/14/25 20:00 21 Intake/Output Intake and Output 03/15/25 07:00 Intake Total 1800 ml Balance 1800 ml Intake Oral 600 ml IV Total 1200 ml # Voids 4 Medications Current Medications Medications Dose Ordered Sig/Yesenia Route Start Time Stop Time Status Last Admin Dose Admin Ondansetron HCl 4 mg Q4HP PRN IV 03/11/25 20:45 03/11/25 22:38 4 MG Morphine Sulfate 2 mg Q4HPRN PRN IV 03/11/25 20:45 Pantoprazole Sodium 40 mg BID IV 03/12/25 10:00 03/15/25 09:47 40 MG Hydralazine HCl 10 mg Q8HP PRN IV 03/12/25 00:30 03/15/25 10:33 10 MG Ceftriaxone Sodium 50 ml @ 100 mls/hr DAILY@09 IV 03/12/25 09:00 03/15/25 08:30 100 MLS/HR Al Hydrox/Mg Hydrox/Simethicone 15 ml Q8HP PRN PO 03/12/25 06:30 Diphenhydramine HCl 25 mg Q4HP PRN IV 03/12/25 06:30 03/14/25 04:36 25 MG Sodium Chloride 1,000 ml @ 75 mls/hr [id number] IV 03/12/25 06:30 03/14/25 14:14 75 MLS/HR Labetalol HCl 10 mg Q2HPRN PRN IV 03/13/25 00:00 03/14/25 23:35 10 MG Laboratory Results Laboratory Tests 03/15/25 07:20 Chemistry Test 03/15/25 07:20 Albumin 2.8 g/dL (3.2-4.8) L Calcium Level 8.2 mg/dL (8.7-10.4) L Total Protein 4.8 g/dL (5.7-8.2) L LFT Test 03/15/25 07:20 Alanine Aminotransferase (ALT) 17 U/L (7-40) Alkaline Phosphatase 93 U/L (46-116) Aspartate Amino Transferase (AST) 43 U/L (13-40) H Total Bilirubin 0.8 mg/dL (0.2-1.0) Urinalysis Test 03/11/25 15:30 Urine Color Light-yellow (Yellow) Urine Clarity Clear (Clear) Urine pH 6.0 (5.0-9.0) Urine Specific [place] 1.018 (1.001-1.035) Urine Protein 3+ (Negative) H Urine Ketones Negative (Negative) Urine Blood 1+ /uL (Negative) H Urine Nitrite Negative (Negative) Urine Bilirubin Negative (Negative) Urine Urobilinogen Normal mg/dL (Negative) Urine Leukocyte Esterase Negative /uL (Negative) Urine RBC <1 /hpf (0 - 4) Urine Microscopic WBC 1 /HPF (0-5) Urine Squamous Epithelial Cells None seen /hpf (<5) Urine Bacteria None seen /hpf (None Seen) Urine Glucose 1+ mg/dL (Normal) H Labs and/or images reviewed: Labs reviewed by me, Image(s) reviewed by me Assessment/Plan Assessment/Plan Severe anemia hemoglobin 6.9 improved to 8.8 after 1 unit RBC transfusion Questionable upper GI bleed secondary to PUD : Consult for Dr. Barillas appreciated ,: Pantoprazole Status post EGD with polypectomy and biopsy of two gastric polyps by Dr. Barillas Asymptomatic hypovolemic hyponatremia YOVANI hemodynamically mediated (VMN) Chronic systolic congestive heart failure (HFrEF 30%), no exacerbation Severe mitral regurgitation and moderate mitral stenosis Hypertension resume home meds Dyslipidemia History of scabies on the buttocks: Permethrin cream Diabetes RN Liv at bed side Time spent 50 minutes Advanced care planning time 20 minutes Patient is full code Patient's lives alone Plan discussed with: Patient My Orders Orders - ABRIL SAAB MD Procedure Category Date Status Time Comprehensive LAB 03/16/25 Verified Metabolic Panel 05:00 Comprehensive LAB 03/17/25 Verified Metabolic Panel 05:00 Complete Blood Count LAB 03/15/25 Logged 05:00 Complete Blood Count LAB 03/16/25 Verified 05:00 Complete Blood Count LAB 03/17/25 Verified 05:00 Date of Service: Mar 15, 2025 Billing Provider: ABRIL SAAB MD Common Visit Codes: [id number] CARE 30-74 MIN ABRIL SAAB MD Mar 15, 2025 11:08
[2025-03-15 11:11] LABS: Hepatitis B Surface Antigen Negative (Negative)
[2025-03-15 11:26] LABS: Hepatitis C Antibody Negative (Negative)
[2025-03-15 11:30] LABS: Hematocrit 28.2 % (36.0-46.0); Hemoglobin 8.6 g/dL (12.2-16.2); Mean Corpuscular Hemoglobin 22.7 pg (28.0-32.0); Mean Corpuscular Volume 74.4 fL (80.0-100.0); Nucleated Red Blood Cells % 0.3 %
[2025-03-15] MEDS: PERMETHRIN 5 % TOPICAL CREAM 60GM TOP ONE (13:00)
--- NOTE | 2025-03-15 21:31 | DVHPN2 ---
Progress Note - Dictate Date Seen: Mar 15, 2025 Medical Necessity Reason Pt with a Central, PICC or Fol: No Subjective Patient is feeling better no nausea vomiting but on anorexia slightly Patient has got problems with the scabies with infection and itching and irritation in the legs CT scan showed no gross abnormality No gross bleeding seen Hemoglobin is stable vital signs Vital Sign Date Time Temp Pulse Resp B/P (MAP) Pulse Ox O2 Delivery O2 Flow Rate FiO2 03/15/25 17:00 98.0 90 19 150/79 (102) 95 98.0 03/15/25 08:00 Room Air* 0 21 Total Intake and Output 03/14/25 03/14/25 03/15/25 15:00 23:00 07:00 Intake Total 50 ml 300 ml 1450 ml Balance 50 ml 300 ml 1450 ml medications Current Medications Medications Dose Ordered Sig/Yesenia Route Start Time Stop Time Status Last Admin Dose Admin Ondansetron HCl 4 mg Q4HP PRN IV 03/11/25 20:45 03/11/25 22:38 4 MG Morphine Sulfate 2 mg Q4HPRN PRN IV 03/11/25 20:45 Pantoprazole Sodium 40 mg BID IV 03/12/25 10:00 03/15/25 09:47 40 MG Hydralazine HCl 10 mg Q8HP PRN IV 03/12/25 00:30 03/15/25 10:33 10 MG Ceftriaxone Sodium 50 ml @ 100 mls/hr DAILY@09 IV 03/12/25 09:00 03/15/25 08:30 100 MLS/HR Al Hydrox/Mg Hydrox/Simethicone 15 ml Q8HP PRN PO 03/12/25 06:30 Diphenhydramine HCl 25 mg Q4HP PRN IV 03/12/25 06:30 03/14/25 04:36 25 MG Labetalol HCl 10 mg Q2HPRN PRN IV 03/13/25 00:00 03/14/25 23:35 10 MG Atorvastatin Calcium 20 mg HS PO 03/15/25 22:00 Carvedilol 12.5 mg Q12HR PO 03/15/25 22:00 Empaglifozin 10 mg DAILY PO 03/16/25 10:00 Ferrous Sulfate 325 mg BIDWM PO 03/16/25 08:00 Furosemide 40 mg DAILY PO 03/16/25 10:00 Hydralazine HCl 50 mg Q12HR PO 03/15/25 22:00 Losartan Potassium 100 mg DAILY PO 03/16/25 10:00 objective Soft abdomen no rigidity no guarding bowel sounds normal Excoriated with some scratch cook and possible early infection from scabies Patient had shown erosive esophagitis gastritis biopsies not back Recommend to treat with PPIs as well as if necessary Carafate laboratory and microbiology Laboratory Tests 03/15/25 10:26 03/15/25 07:20 Test 03/15/25 07:20 Range/Units Serum Glucose 103 74-106 mg/dL Assessment/Plan 69-year-old female with complaints of abdominal pain nausea vomiting unable to keep food down severe anorexia weight loss has history of ulcer disease in the past which was diagnosed in 2023 May Denied any hematemesis or melena but anemic History severe anemia in the past requiring transfer blood transfusions over the years Clinical impression Abdominal pain nausea anorexia history of diabetes hypertension and severe anemia Stool occult blood is negative Ultrasound negative CT scan showed no gross abnormalities Hemoglobin is stable but low Recommend to continue to monitor the hemoglobin Aggressive treatment for the scabies as much as possible especially with the excoriations and skin irritations which is making her miserable Dietary Evaluation Review Comments: 1) If patient remains NPO > 7 days, consider EN/TPN to meet at least 75% estimated daily needs 2) Advance to 60g CCHO cardiac diet when medically feasible 3) Follow-up with gastroenterology, cardiology, and nephrology 4) Continue to monitor I&O, labs, and skin integrity Expected Outcomes/Goals: 1) patient to receive nutritional support within 7 days of NPO status 2) labs to improve 3) diet to advance 4) f/u in 3-5 days Plan discussed with: Patient CC Plasma Assessment Blood Product Administration S: [id number] JUDY ALMANZA MD Mar 15, 2025 21:31
[2025-03-15] MEDS: ATORVASTATIN 20 MG TAB PO SCH (22:26)
[2025-03-15] MEDS: CARVEDILOL 12.5 MG TAB PO SCH (22:26)
[2025-03-16] VITALS (15 sets, daily range): BP systolic 125–147; BP diastolic 64–88; PULSE 56–76; RESP 17–22; TEMP 97.3–98.9; O2SAT 10–100
[2025-03-16 05:50] LABS: Alanine Aminotransferase 15 U/L (7-40); Alkaline Phosphatase 86 U/L (46-116); Anion Gap 10 (5-15); BUN/Creatinine Ratio 10.6 (10.0-20.0); Bilirubin, Total 0.7 mg/dL (0.2-1.0); Blood Urea Nitrogen 17 mg/dL (9-23); Chloride 101 mmol/L (98-107); Potassium 3.9 mmol/L (3.5-5.1)
[2025-03-16 05:52] LABS: Sodium 131 mmol/L (136-145)
[2025-03-16 05:53] LABS: Albumin 2.7 g/dL (3.2-4.8); Calcium 8.4 mg/dL (8.7-10.4); Carbon Dioxide 20 mmol/L (20-31); Glucose 113 mg/dL (74-106); Total Protein 4.6 g/dL (5.7-8.2)
[2025-03-16 06:01] LABS: Hematocrit 22.8 % (36.0-46.0); Hemoglobin 7.2 g/dL (12.2-16.2); Mean Corpuscular Hemoglobin 23.0 pg (28.0-32.0); Mean Corpuscular Volume 73.3 fL (80.0-100.0); Nucleated Red Blood Cells % 0.4 %
[2025-03-16] MEDS: EMPAGLIFLOZIN 10 MG TAB PO SCH (08:42)
[2025-03-16] MEDS: LOSARTAN POTASSIUM 50 MG TAB PO SCH (08:42)
[2025-03-16] MEDS: FUROSEMIDE 40 MG TAB PO SCH (08:43)
[2025-03-16] MEDS: FERROUS SULFATE 325mg EC TAB PO SCH (08:43)
[2025-03-16] MEDS ORDERED: METOPROLOL SUCCINATE XL 50 MG TAB PO SCH (10:00)
--- NOTE | 2025-03-16 11:33 | DVHPN2 ---
Reviewed: Care Plan, H&P, Labs, Medications, Previous Orders, Radiology Changes from previous H/P or p: No Changes Objective Vitals Vital Signs Date Time Temp Pulse Resp B/P (MAP) Pulse Ox O2 Delivery O2 Flow Rate FiO2 03/16/25 08:43 139/88 03/16/25 08:41 71 03/16/25 08:31 98.9 17 71 98.9 03/15/25 20:00 Room Air* 0 21 Intake/Output Intake and Output 03/16/25 07:00 Intake Total 1733 ml Balance 1733 ml Intake Oral 1683 ml IV Total 50 ml # Voids 2 Medications Current Medications Medications Dose Ordered Sig/Yesenia Route Start Time Stop Time Status Last Admin Dose Admin Ondansetron HCl 4 mg Q4HP PRN IV 03/11/25 20:45 03/11/25 22:38 4 MG Morphine Sulfate 2 mg Q4HPRN PRN IV 03/11/25 20:45 Pantoprazole Sodium 40 mg BID IV 03/12/25 10:00 03/16/25 08:39 40 MG Hydralazine HCl 10 mg Q8HP PRN IV 03/12/25 00:30 03/15/25 10:33 10 MG Ceftriaxone Sodium 50 ml @ 100 mls/hr DAILY@09 IV 03/12/25 09:00 03/16/25 08:37 100 MLS/HR Al Hydrox/Mg Hydrox/Simethicone 15 ml Q8HP PRN PO 03/12/25 06:30 Diphenhydramine HCl 25 mg Q4HP PRN IV 03/12/25 06:30 03/14/25 04:36 25 MG Labetalol HCl 10 mg Q2HPRN PRN IV 03/13/25 00:00 03/14/25 23:35 10 MG Atorvastatin Calcium 20 mg HS PO 03/15/25 22:00 03/15/25 22:26 20 MG Carvedilol 12.5 mg Q12HR PO 03/15/25 22:00 03/16/25 08:41 12.5 MG Empaglifozin 10 mg DAILY PO 03/16/25 10:00 03/16/25 08:42 10 MG Ferrous Sulfate 325 mg BIDWM PO 03/16/25 08:00 03/16/25 08:43 325 MG Furosemide 40 mg DAILY PO 03/16/25 10:00 03/16/25 08:43 40 MG Hydralazine HCl 50 mg Q12HR PO 03/15/25 22:00 03/16/25 08:41 50 MG Losartan Potassium 100 mg DAILY PO 03/16/25 10:00 03/16/25 08:42 100 MG Laboratory Results Laboratory Tests 03/16/25 04:47 Chemistry Test 03/16/25 04:47 Albumin 2.7 g/dL (3.2-4.8) L Calcium Level 8.4 mg/dL (8.7-10.4) L Total Protein 4.6 g/dL (5.7-8.2) L LFT Test 03/16/25 04:47 Alanine Aminotransferase (ALT) 15 U/L (7-40) Alkaline Phosphatase 86 U/L (46-116) Aspartate Amino Transferase (AST) 17 U/L (13-40) Total Bilirubin 0.7 mg/dL (0.2-1.0) Urinalysis Test 03/11/25 15:30 Urine Color Light-yellow (Yellow) Urine Clarity Clear (Clear) Urine pH 6.0 (5.0-9.0) Urine Specific [place] 1.018 (1.001-1.035) Urine Protein 3+ (Negative) H Urine Ketones Negative (Negative) Urine Blood 1+ /uL (Negative) H Urine Nitrite Negative (Negative) Urine Bilirubin Negative (Negative) Urine Urobilinogen Normal mg/dL (Negative) Urine Leukocyte Esterase Negative /uL (Negative) Urine RBC <1 /hpf (0 - 4) Urine Microscopic WBC 1 /HPF (0-5) Urine Squamous Epithelial Cells None seen /hpf (<5) Urine Bacteria None seen /hpf (None Seen) Urine Glucose 1+ mg/dL (Normal) H Labs and/or images reviewed: Labs reviewed by me, Image(s) reviewed by me Assessment/Plan Assessment/Plan Severe anemia hemoglobin 6.9 improved to 8.8 after 1 unit RBC transfusion Questionable upper GI bleed secondary to PUD : Consult for Dr. Barillas appreciated ,: Pantoprazole Status post EGD with polypectomy and biopsy of two gastric polyps by Dr. Barillas Erosive gastritis erosive duodenitis by EGD Asymptomatic hypovolemic hyponatremia YOVANI hemodynamically mediated (VMN) Chronic systolic congestive heart failure (HFrEF 30%), no exacerbation Severe mitral regurgitation and moderate mitral stenosis Hypertension resume home meds Dyslipidemia History of scabies on the buttocks: Permethrin cream Diabetes Acute shortness of breaths with a cough: Possible pneumonia: Continue Rocephin, add azithromycin albuterol and Atrovent med neb chest x-ray Alvin Lindsay at bed side Time spent 50 minutes Advanced care planning time 20 minutes Patient is full code Patient's lives alone Plan discussed with: Patient My Orders Orders - ABRIL SAAB MD Procedure Category Date Status Time Cardiac DIET 03/15/25 Transmitted Diet-2gna,Lofat,Lochol Lunch Atorvastatin (Lipitor) PHA 03/15/25 In Process 22:00 Carvedilol Tablet PHA 03/15/25 In Process (Coreg Tablet) 22:00 Empagliflozin PHA 03/16/25 In Process (Jardiance) 10:00 Ferrous Sulfate Tablet PHA 03/16/25 In Process 08:00 Furosemide Tablet PHA 03/16/25 In Process (Lasix Tablet) 10:00 Hydralazine Hcl PHA 03/15/25 In Process Tablet (Apresoline 22:00 Losartan Tablet PHA 03/16/25 In Process (Cozaar Tablet) 10:00 Date of Service: Mar 16, 2025 Billing Provider: ABRIL SAAB MD Common Visit Codes: [id number] CARE 30-74 MIN ABRIL SAAB MD Mar 16, 2025 11:33
[2025-03-16] MEDS: AZITHROMYCIN 500MG/ 250ML 250 ML IV ONE (12:06)
[2025-03-16] MEDS: guaiFENesin-CODEINE Liq 5 ML UD PO PRN (12:06)
[2025-03-16] MEDS: methylPREDNISolone SOD SUCC 40 MG/ML VL IV SCH (12:08)
--- NOTE | 2025-03-16 13:34 | DVH ---
EXAM: XY CHEST PORTABLE Indication: new onset cough/sob Technique: Single frontal view of the chest was obtained Comparison: XY CHEST PORTABLE on DOS: 03/11/25, XY CHEST PORTABLE on DOS: 01/03/25, XY CHEST PORTABLE on DOS: 01/01/25, XY CHEST PORTABLE on DOS: 07/02/24, XY CHEST XRAY 1 VIEW on DOS: 05/26/24 FINDINGS: Lines and Tubes: None Lungs: No focal consolidation. Pulmonary vascular congestion. Pleura: No effusion. No pneumothorax. Cardiomediastinal contours: Cardiomegaly. Atherosclerotic vascular calcifications of the thoracic ao rta are noted. Bones: No acute osseous abnormality. IMPRESSION: Cardiomegaly with pulmonary vascular congestion.
[2025-03-16] MEDS: ALBUTEROL SULF 2.5 MG/0.5ML(0.5%) NEB SOLN NEB SCH (13:41)
[2025-03-16] MEDS: IPRATROPIUM BROM 0.5 MG/2.5ML INH SOL NEB SCH (13:41)
[2025-03-16 13:57] LABS: COVID19 ANTIGEN SOFIA FIA NEGATIVE (NEGATIVE)
--- NOTE | 2025-03-16 17:07 | DVHPN2 ---
Progress Note - Dictate Date Seen: Mar 16, 2025 Medical Necessity Reason Pt with a Central, PICC or Fol: No Subjective Patient seen at bedside resting comfortably Patient is feeling better no nausea vomiting Patient has got problems with the scabies with infection and itching and irritation in the legs CT scan showed no gross abnormality No gross bleeding seen EGD by Dr. Barillas on 03/14/2025 showed a small hiatal hernia erosive esophagitis and gastroduodenitis Similar finding on previous endoscopy Last colon negative 2019 Hemoglobin trending down to 7.2 vital signs Vital Sign Date Time Temp Pulse Resp B/P (MAP) Pulse Ox O2 Delivery O2 Flow Rate FiO2 03/16/25 16:54 98.2 56 147/67 (93) 100 98.2 03/16/25 15:11 20 2.0 28 03/16/25 13:41 Nasal Cannula* Total Intake and Output 03/15/25 03/15/25 03/16/25 15:00 23:00 07:00 Intake Total 50 ml 700 ml 983 ml Balance 50 ml 700 ml 983 ml medications Current Medications Medications Dose Ordered Sig/Yesenia Route Start Time Stop Time Status Last Admin Dose Admin Ondansetron HCl 4 mg Q4HP PRN IV 03/11/25 20:45 03/11/25 22:38 4 MG Morphine Sulfate 2 mg Q4HPRN PRN IV 03/11/25 20:45 Pantoprazole Sodium 40 mg BID IV 03/12/25 10:00 03/16/25 08:39 40 MG Hydralazine HCl 10 mg Q8HP PRN IV 03/12/25 00:30 03/15/25 10:33 10 MG Ceftriaxone Sodium 50 ml @ 100 mls/hr DAILY@09 IV 03/12/25 09:00 03/16/25 08:37 100 MLS/HR Al Hydrox/Mg Hydrox/Simethicone 15 ml Q8HP PRN PO 03/12/25 06:30 Diphenhydramine HCl 25 mg Q4HP PRN IV 03/12/25 06:30 03/14/25 04:36 25 MG Labetalol HCl 10 mg Q2HPRN PRN IV 03/13/25 00:00 03/14/25 23:35 10 MG Atorvastatin Calcium 20 mg HS PO 03/15/25 22:00 03/15/25 22:26 20 MG Carvedilol 12.5 mg Q12HR PO 03/15/25 22:00 03/16/25 08:41 12.5 MG Empaglifozin 10 mg DAILY PO 03/16/25 10:00 03/16/25 08:42 10 MG Ferrous Sulfate 325 mg BIDWM PO 03/16/25 08:00 03/16/25 08:43 325 MG Furosemide 40 mg DAILY PO 03/16/25 10:00 03/16/25 08:43 40 MG Hydralazine HCl 50 mg Q12HR PO 03/15/25 22:00 03/16/25 08:41 50 MG Losartan Potassium 100 mg DAILY PO 03/16/25 10:00 03/16/25 08:42 100 MG Guaifenesin/ Codeine Phosphate 15 ml Q8HPRN PRN PO 03/16/25 11:45 03/16/25 12:06 15 ML Azithromycin 250 ml @ 125 mls/hr DAILY IV 03/17/25 10:00 Albuterol 2.5 mg Q4HR NEB 03/16/25 14:00 03/16/25 13:41 2.5 MG Ipratropium [place] 0.5 mg Q4HR NEB 03/16/25 14:00 03/16/25 13:41 0.5 MG Methylprednisolone Sodium Succinate 40 mg Q6HR IV 03/16/25 12:00 03/16/25 12:08 40 MG objective Soft abdomen no rigidity no guarding bowel sounds normal Excoriated with some scratch cook and possible early infection from scabies laboratory and microbiology Laboratory Tests 03/16/25 04:47 Test 03/16/25 04:47 Range/Units Serum Glucose 113 H 74-106 mg/dL Problems(with codes): (1) Anemia (2) Scabies (3) Melena (4) Generalized weakness (5) Hiatal hernia with GERD and esophagitis Prognosis PLAN Patient had shown erosive esophagitis gastritis biopsies not back Recommend to treat with PPIs as well as if necessary Carafate Continue supportive care Start IV iron Dietary Evaluation Review Comments: 1) If patient remains NPO > 7 days, consider EN/TPN to meet at least 75% estimated daily needs 2) Advance to 60g CCHO cardiac diet when medically feasible 3) Follow-up with gastroenterology, cardiology, and nephrology 4) Continue to monitor I&O, labs, and skin integrity Expected Outcomes/Goals: 1) patient to receive nutritional support within 7 days of NPO status 2) labs to improve 3) diet to advance 4) f/u in 3-5 days Plan discussed with: Other (Dr Barillas) CC Plasma Assessment Blood Product Administration S: [id number] NEW MATTA MD Mar 16, 2025 17:07
[2025-03-17] VITALS (19 sets, daily range): BP systolic 119–154; BP diastolic 63–74; PULSE 61–82; RESP 16–20; TEMP 97.3–97.9; O2SAT 93–100
[2025-03-17 05:16] LABS: Hemoglobin 8.6 g/dL (12.2-16.2)
[2025-03-17 05:19] LABS: Hematocrit 27.9 % (36.0-46.0); Mean Corpuscular Hemoglobin 22.9 pg (28.0-32.0); Mean Corpuscular Volume 74.2 fL (80.0-100.0); Nucleated Red Blood Cells % 0.4 %
[2025-03-17 05:35] LABS: Alanine Aminotransferase 16 U/L (7-40); Alkaline Phosphatase 101 U/L (46-116); Anion Gap 7 (5-15); Carbon Dioxide 22 mmol/L (20-31); Chloride 101 mmol/L (98-107); Potassium 4.5 mmol/L (3.5-5.1)
[2025-03-17 05:36] LABS: BUN/Creatinine Ratio 10.4 (10.0-20.0); Bilirubin, Total 0.4 mg/dL (0.2-1.0); Blood Urea Nitrogen 19 mg/dL (9-23)
[2025-03-17 05:38] LABS: Albumin 2.9 g/dL (3.2-4.8); Calcium 8.4 mg/dL (8.7-10.4); Glucose 178 mg/dL (74-106); Sodium 130 mmol/L (136-145); Total Protein 5.0 g/dL (5.7-8.2)
--- NOTE | 2025-03-17 06:52 | ECG ---
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
--- NOTE | 2025-03-17 09:56 | DVHPN2 ---
Reviewed: Care Plan, H&P, Labs, Medications, Previous Orders, Radiology Changes from previous H/P or p: No Changes Objective Vitals Vital Signs Date Time Temp Pulse Resp B/P (MAP) Pulse Ox O2 Delivery O2 Flow Rate FiO2 03/17/25 08:00 Room Air* 0 21 03/17/25 05:00 97.3 70 17 142/72 (95) 93 97.3 Intake/Output Intake and Output 03/17/25 07:00 Intake Total 1050 ml Balance 1050 ml Intake Oral 750 ml IV Total 300 ml # Voids 1 Medications Current Medications Medications Dose Ordered Sig/Yesenia Route Start Time Stop Time Status Last Admin Dose Admin Ondansetron HCl 4 mg Q4HP PRN IV 03/11/25 20:45 03/16/25 23:02 4 MG Morphine Sulfate 2 mg Q4HPRN PRN IV 03/11/25 20:45 Pantoprazole Sodium 40 mg BID IV 03/12/25 10:00 03/16/25 21:25 40 MG Hydralazine HCl 10 mg Q8HP PRN IV 03/12/25 00:30 03/15/25 10:33 10 MG Ceftriaxone Sodium 50 ml @ 100 mls/hr DAILY@09 IV 03/12/25 09:00 03/17/25 07:44 100 MLS/HR Al Hydrox/Mg Hydrox/Simethicone 15 ml Q8HP PRN PO 03/12/25 06:30 Diphenhydramine HCl 25 mg Q4HP PRN IV 03/12/25 06:30 03/14/25 04:36 25 MG Labetalol HCl 10 mg Q2HPRN PRN IV 03/13/25 00:00 03/14/25 23:35 10 MG Atorvastatin Calcium 20 mg HS PO 03/15/25 22:00 03/16/25 21:25 20 MG Carvedilol 12.5 mg Q12HR PO 03/15/25 22:00 03/16/25 08:41 12.5 MG Empaglifozin 10 mg DAILY PO 03/16/25 10:00 03/16/25 08:42 10 MG Ferrous Sulfate 325 mg BIDWM PO 03/16/25 08:00 03/17/25 07:44 325 MG Furosemide 40 mg DAILY PO 03/16/25 10:00 03/16/25 08:43 40 MG Hydralazine HCl 50 mg Q12HR PO 03/15/25 22:00 03/16/25 21:26 50 MG Losartan Potassium 100 mg DAILY PO 03/16/25 10:00 03/16/25 08:42 100 MG Guaifenesin/ Codeine Phosphate 15 ml Q8HPRN PRN PO 03/16/25 11:45 03/16/25 12:06 15 ML Azithromycin 250 ml @ 125 mls/hr DAILY IV 03/17/25 10:00 Albuterol 2.5 mg Q4HR NEB 03/16/25 14:00 03/17/25 02:46 2.5 MG Ipratropium [place] 0.5 mg Q4HR NEB 03/16/25 14:00 03/17/25 02:47 0.5 MG Methylprednisolone Sodium Succinate 40 mg Q6HR IV 03/16/25 12:00 03/17/25 05:22 40 MG Iron Sucrose 110 ml @ 110 mls/hr DAILY@1200 IV 03/17/25 12:00 03/21/25 12:59 Laboratory Results Laboratory Tests 03/17/25 04:52 Chemistry Test 03/17/25 04:52 Albumin 2.9 g/dL (3.2-4.8) L Calcium Level 8.4 mg/dL (8.7-10.4) L Total Protein 5.0 g/dL (5.7-8.2) L LFT Test 03/17/25 04:52 Alanine Aminotransferase (ALT) 16 U/L (7-40) Alkaline Phosphatase 101 U/L (46-116) Aspartate Amino Transferase (AST) 16 U/L (13-40) Total Bilirubin 0.4 mg/dL (0.2-1.0) Urinalysis Test 03/11/25 15:30 Urine Color Light-yellow (Yellow) Urine Clarity Clear (Clear) Urine pH 6.0 (5.0-9.0) Urine Specific [place] 1.018 (1.001-1.035) Urine Protein 3+ (Negative) H Urine Ketones Negative (Negative) Urine Blood 1+ /uL (Negative) H Urine Nitrite Negative (Negative) Urine Bilirubin Negative (Negative) Urine Urobilinogen Normal mg/dL (Negative) Urine Leukocyte Esterase Negative /uL (Negative) Urine RBC <1 /hpf (0 - 4) Urine Microscopic WBC 1 /HPF (0-5) Urine Squamous Epithelial Cells None seen /hpf (<5) Urine Bacteria None seen /hpf (None Seen) Urine Glucose 1+ mg/dL (Normal) H Labs and/or images reviewed: Labs reviewed by me, Image(s) reviewed by me Assessment/Plan Assessment/Plan Severe anemia hemoglobin 6.9 improved to 8.8 after 1 unit RBC transfusion Acute upper GI bleed secondary to peptic ulcer disease : Consult for Dr. Barillas appreciated ,: Pantoprazole, Carafate Status post EGD with polypectomy and biopsy of two gastric polyps by Dr. Barillas Erosive gastritis erosive duodenitis by EGD Acute hyponatremia resolved YOVANI hemodynamically mediated (VMN) Chronic systolic congestive heart failure (HFrEF 30%), no exacerbation Severe mitral regurgitation and moderate mitral stenosis Hypertension resume home meds Dyslipidemia History of scabies on the buttocks: Permethrin cream Diabetes Elevated BUN and hyponatremia, consult for Acute shortness of breaths with cough: Possible pneumonia: Continue Rocephin, add azithromycin albuterol and Atrovent med neb chest x-ray Solu-Medrol RN Angélica at bed side Time spent 50 minutes Advanced care planning time 20 minutes Patient is full code Patient's lives alone Plan discussed with: Patient My Orders Orders - ABRIL SAAB MD Procedure Category Date Status Time Guaifenesin-Codeine PHA 03/16/25 In Process Liquid (Robitussin/C 11:45 Azithromycin 500mg/ PHA 03/17/25 In Process 250ml (Zithromax 50 10:00 Albuterol Medneb PHA 03/16/25 In Process (Ventolin Medneb) 14:00 Ipratropium Medneb PHA 03/16/25 In Process (Atrovent Medneb) 14:00 Methylprednisolone PHA 03/16/25 In Process Sod Succ (Solu Medrol 12:00 Chest Portable XY 03/16/25 Resulted 11:42 * Cardiology Consult CONS 03/16/25 Transmitted 13:58 Date of Service: Mar 17, 2025 Billing Provider: ABRIL SAAB MD Common Visit Codes: [id number] INP/OBS CARE(HIGH) ABRIL SAAB MD Mar 17, 2025 09:56
[2025-03-17] MEDS: AZITHROMYCIN 500MG/ 250ML 250 ML IV SCH (10:00)
[2025-03-17] MEDS: IRON SUCROSE COMPLEX 110 ML IV SCH (12:20)
--- NOTE | 2025-03-17 13:27 | DVHINCON2 ---
Date Seen: Mar 17, [address] Sarmiento Reason for Consultation CHF History of Present Illness Maria Elena Cantu is a 69-year-old female patient who presents to ED with chief complaint of nausea, vomiting of clear emesis, stabbing abdominal pain in epigastric region, weakness, chills and dyspnea which is chronic (a proximally two years) but has worsened past two days two days before her admission. These symptoms are similar to when she was previously admitted due to severe anemia secondary to peptic ulcer disease, she already required seven PRBCs in her lifetime. Patient also mentions unintentional weight loss of 20 lb in the past year. Patient had completed EGD on September 2024 which shows PUD, requires follow up with Dr. Domínguez. Denies any other associated symptoms including hematemesis, melena or any other type of bleeding. During hospitalization, patient required 1 PRBC and iron infusion, EGD which shows esophagitis and gastroenteritis, developed acute exacerbation of CHF. Past medical history: Hypertension, dyslipidemia, diabetes, anemia with requirement of seven PRBC transfusion secondary to PUD, dermatitis/scabies but not on anti-parasitic medication (followed by prawn trawler hand), systolic congestive heart failure (last echocardiogram on 12/2024 which shows LVEF 30%, moderate LVH, severe mitral regurgitation, moderate mitral stenosis, biatrial enlargement), stress test on 08/2019 with no ischemic changes, required life vest for 6 months in 2021 (no shocks), no previous coronary angiographies. Surgical history: EGD on 09/2024 which showed PUD, x3 Family history: Noncontributory Social history: Lives in [place] alone (next of kin is sister Jane). Denies current tobacco, alcohol and other drug abuse Allergies: Ibuprofen (not real allergy), star fruit Home medication: Atorvastatin, B complex, carvedilol, empagliflozin, ergocalciferol, ferrous sulfate, finererone, furosemide, hydralazine, isosorbide mononitrate, losartan, metoprolol, pantoprazole, sitagliptin Patient seen and examined at bedside. Patient continues with nausea mild episodes of vomiting with nonbloody emesis. Patient was admitted for further evaluation. Cardiology was consulted for CHF Past Medical History Per HPI Past Surgical History Per HPI Family History: FH: congestive heart failure G8 MOTHER, Family history: Cardiovascular disease G8 SISTER, Onset:50's - 60 Family history: Diabetes mellitus G8 MOTHER, , Onset:50's - 60 G8 SISTER, Onset:40's - 50 Family History Per HPI Social History Per HPI Allergies: Coded Allergies: Ibuprofen (Verified Allergy, Unknown, 10/03/23) Uncoded Allergies: Starfruit (Allergy, Severe, 01/02/25) Allergies Per HPI Home Meds Active Scripts Ferrous Sulfate (Iron) 325 Mg Tab, 325 MG PO BID for 30 Days, #60 TAB 2 Refills Prov:OFE TORRES RESEARCH ATTORNEY 01/04/25 Furosemide (Lasix) 40 Mg Tab, 40 MG PO BID for 30 Days, #60 TAB Prov:OFE TORRES NP 01/04/25 Carvedilol (COREG) 12.5 Mg Tab, 12.5 MG OR BID for 30 Days, #60 TAB 3 Refills Prov:OFE TORRES NP 01/04/25 Cefdinir (Cefdinir) 300 Mg Cap, 1 CAP PO BID for 7 Days, #14 CAP Prov:TERESA HERRMANN MD 07/09/24 Isosorbide Mononitrate (Isosorbide Mononitrate Er) 30 Mg Tab, 1 TAB PO DAILY for 30 Days, #30 TAB 5 Refills Prov:ALEJANDRO LEIGH RESIDENT 07/05/24 B-Complex W/ C & Folic Acid (Nephro-Rio) Tab, 1 TAB PO DAILY for 30 Days, #30 TAB 3 Refills Prov:KERA BOLTON MD 06/03/24 Metoprolol Succinate (Toprol Xl) 50 Mg Tab, 50 MG PO DAILY for 30 Days, #30 TAB 2 Refills Prov:KERA BOLTON MD 06/03/24 Furosemide (Lasix) 40 Mg Tab, 40 MG PO QAM for 30 Days, #30 TAB 3 Refills Prov:KERA BOLTON MD 06/03/24 Pantoprazole Sodium Sesquihydr (Pantoprazole Sodium) 40 Mg Tab, 40 MG PO DAILY for 30 Days, #30 TAB 2 Refills Prov:KERA BOLTON MD 06/03/24 Losartan Potassium (Losartan Potassium) 100 Mg Tab, 100 MG PO DAILY for 30 Days, #30 TAB 2 Refills Prov:KERA BOLTON MD 06/03/24 Empagliflozin (Jardiance) 10 Mg Tab, 10 MG PO DAILY for 30 Days, #30 TAB 2 Ref ills Prov:KEAR BOLTON MD 06/03/24 Atorvastatin Calcium (ATORVASTATIN CALCIUM) 20 Mg Tab, 20 MG PO HS for 30 Days, #30 TAB 3 Refills Prov:KERA BOLTON MD 06/03/24 Ferrous Sulfate (Ferrous Sulfate) 325 Mg Tab, 1 TAB PO EVERY OTHER DAY for 30 Days, #15 TAB Prov:LIN MADRIGAL MD 02/28/24 Ergocalciferol (VITAMIN D 10104 UNIT) 50,000 [place], [address] UNIT PO Q7D for 12 Days, #12 CAP Prov:MABEL GUZMAN MD 01/11/23 Empagliflozin (Jardiance) 10 Mg Tab, 10 MG PO QAM for 30 Days, #30 TAB Prov:MABEL GUZMAN MD 01/11/23 Reported Medications Sitagliptin Phosphate (Januvia) 50 Mg Tab, 1 TAB PO DAILY, #30 TAB 5 Refills 01/02/25 Hydralazine Hcl (Hydralazine Hcl) 50 Mg Tab, 100 MG PO BID 10/03/23 Furosemide (Furosemide) 40 Mg Tab, 1 TAB PO DAILY 10/03/23 Finerenone (Kerendia) 10 Mg Tab, 1 TAB PO DAILY 10/01/23 Metoprolol Succinate (Metoprolol Succinate Er) 100 Mg Tab, 1 TAB PO DAILY 10/01/23 Losartan Potassium (Losartan Potassium) 100 Mg Tab, 100 MG PO DAILY for 30 Days, MG 07/12/21 Current Medications Current Medications Medications (Trade) Dose Ordered Sig/Yesenia Route PRN Reason Start Time Stop Time Status Last Admin Azithromycin 250 ml @ 125 mls/hr DAILY IV 03/17/25 10:00 03/17/25 10:00 Albuterol (Ventolin Medneb) 2.5 mg Q4HR NEB 03/16/25 14:00 03/17/25 09:54 Ipratropium [place] (Atrovent Medneb) 0.5 mg Q4HR NEB 03/16/25 14:00 03/17/25 09:54 Iron Sucrose 110 ml @ 110 mls/hr DAILY@1200 IV 03/17/25 12:00 10/26/25 12:59 03/17/25 12:20 Review of Systems Per HPI Vital Signs Vital Signs Date Time Temp Pulse Resp B/P (MAP) Pulse Ox O2 Delivery O2 Flow Rate FiO2 03/17/25 12:18 97.4 75 16 139/69 (92) 96 97.4 03/17/25 09:54 Room Air* 0 21 Physical Exam Patient lying in bed, in no acute distress General: Lucid, afebrile, mucosae are moist Cardiovascular: Normal S1 and S2. Holosystolic murmur best heard in apex which radiates towards axilla intensity 3/6. No gallops or rubs Respiratory: Normal ventilation mechanics. Bibasilar crackles associated with expiratory wheezing, rest of lung auscultation is clear Abdomen: Soft, nontender, no organomegaly, normal bowel sounds MSK/skin: Mobilizes 4 limbs. Skin is dry and warm. Excoriations in bilateral legs, left more than right, mild erythema on legs and dorsal aspect of bilateral forearm. Bilateral infrapatellar pitting edema Neurological: Oriented in 3 spheres. No motor no sensitive deficits. Pupils are isocoric and reactive Labs/Diagnostic Data Labs Test 03/17/25 04:52 03/16/25 12:10 03/14/25 04:51 03/12/25 17:28 Range/Units White Blood Count 4.3 #L 4.4-10.8 10^3/uL Red Blood Count 3.76 L 4.0-5.20 10^6/uL Hemoglobin 8.6 #L 12.2-16.2 g/dL Hematocrit 27.9 #L 36.0-46.0 % Mean Corpuscular Volume 74.2 L 80.0-100.0 fL Mean Corpuscular Hemoglobin 22.9 L 28.0-32.0 pg Mean Corpuscular Hemoglobin Concent 30.9 L 32.0-36.0 g/dL Red Cell Distribution Width 23.9 H 11.8-14.3 % Platelet Count 225 140-450 10^3/uL Mean Platelet Volume 8.1 6.9-10.8 fL Neutrophils (%) (Auto) 95.0 H 37.0-80.0 % Lymphocytes (%) (Auto) 3.4 L 10.0-50.0 % Monocytes (%) (Auto) 1.2 0.0-12.0 % Eosinophils (%) (Auto) 0.0 0.0-7.0 % Basophils (%) (Auto) 0.4 0.0-2.0 % Neutrophils # (Auto) 4.1 1.6-8.6 10 ^3/uL Lymphocytes # (Auto) 0.1 L 0.4-5.4 10 ^3/uL Monocytes # (Auto) 0.1 0-1.3 10 ^3/uL Eosinophils # (Auto) 0 0-0.8 10 ^3/uL Basophils # (Auto) 0 0-0.2 10 ^3/uL Nucleated Red Blood Cells 0.4 % Sodium Level 130 L 136-145 mmol/L Potassium Level 4.5 3.5-5.1 mmol/L Chloride Level 101 98-107 mmol/L Carbon Dioxide Level 22 20-31 mmol/L Anion Gap 7 5-15 Blood Urea Nitrogen 19 9-23 mg/dL Creatinine 1.83 H 0.550-1.02 mg/dL Glomerular Filtration Rate Calc 29 >90 mL/min BUN/Creatinine Ratio 10.4 10.0-20.0 Serum Glucose 178 H 74-106 mg/dL Calcium Level 8.4 L 8.7-10.4 mg/dL Total Bilirubin 0.4 0.2-1.0 mg/dL Aspartate Amino Transferase (AST) 16 13-40 U/L Alanine Aminotransferase (ALT) 16 7-40 U/L Alkaline Phosphatase 101 46-116 U/L Total Protein 5.0 L 5.7-8.2 g/dL Albumin 2.9 L 3.2-4.8 g/dL Parathyroid Hormone (Intact) 175.9 H 18.4-80.1 pg/mL Influenza Type A Antigen Negative Negative Influenza Type B Antigen Negative Negative SARS-CoV-2 Antigen (Rapid) Negative NEGATIVE Hepatitis B Surface Antigen Negative Negative Hepatitis C Antibody Negative Negative Lipase 34 12-53 U/L Test 03/12/25 05:52 03/11/25 23:13 03/11/25 23:00 03/11/25 15:30 Range/Units Differential Total Cells Counted 100.0 100 Neutrophils % (Manual) 81 H 37.0-80.0 Band Neutrophils % (Manual) 0 Lymphocytes % (Manual) 18 10.0-50.0 Monocytes % (Manual) 1 0-12 Eosinophils % (Manual) 0 0-7 Basophils % (Manual) 0 0.0-2.0 Metamyelocytes % (manual) 0 Myelocytes % (Manual) 0 Promyelocytes % (Manual) 0 Blast Cells % (Manual) 0 Reactive Lymphocytes 0 Platelet Estimate Adequate Hypochromasia (manual) Moderate Anisocytosis (manual) Slight Microcytosis Moderate Stool Occult Blood Negative Negative Stool Occult Blood Sample #3 Negative Reticulocyte Count (auto) 2.56 H 0.5-1.5 % Haptoglobin 102 42-346 mg/dL Prothrombin Time 12.1 H 9.3-11.8 sec Prothrombin Time INR 1.16 H 0.9-1.15 Activated Partial Thromboplast Time 30.9 24.5-34.5 SEC Lactic Acid Level 1.1 0.4-2.0 mmol/L Phosphorus Level 2.8 2.4-5.1 mg/dL Magnesium Level 2.0 1.6-2.6 mg/dL Ammonia 22 11-32 umol/L Triglycerides Level 95 < 150 mg/dL Cholesterol Level 136 < 200 mg/dL LDL Cholesterol 59 < 100 mg/dL HDL Cholesterol 63 H 40-59 mg/dL Urine Color Light-yellow Yellow Urine Clarity Clear Clear Urine pH 6.0 5.0-9.0 Urine Specific [place] 1.018 1.001-1.035 Urine Protein 3+ H Negative Urine Ketones Negative Negative Urine Blood 1+ H Negative /uL Urine Nitrite Negative Negative Urine Bilirubin Negative Negative Urine Urobilinogen Normal Negative mg/dL Urine Leukocyte Esterase Negative Negative /uL Urine RBC <1 0 - 4 /hpf Urine Microscopic WBC 1 0-5 /HPF Urine Squamous Epithelial Cells None seen <5 /hpf Urine Bacteria None seen None Seen /hpf Urine Glucose 1+ H Normal mg/dL Test 03/11/25 13:06 03/11/25 13:02 Range/Units Target Cells Few Ovalocytes Few Schistocytes Few Hemoglobin A1c 5.8 H <5.7 % A1C Ferritin 11.5 10-291 ng/mL Lactate Dehydrogenase 281 H 120-246 U/L Troponin I High Sensitivity 20 </=34 ng/L Vitamin B12 Level 778 211-911 pg/mL Vitamin D 25-Hydroxy 31.6 30.0-100 ng/mL Thyroid Stimulating Hormone (TSH) 2.70 0.55-4.78 uIU/mL POC Glucose 175 H 70-106 mg/dl Assessment Acute on chronic systolic congestive heart failure (HFrEF, LVEF 30%) Severe mitral regurgitation and moderate mitral stenosis Severe anemia - s/p Upper GI bleed secondary to esophagitis and gastroenteritis Asymptomatic hypovolemic hyponatremia YOVANI hemodynamically mediated (VMN) on CKD (baseline GFR 24 stage IV) Scabieis Hypertension Dyslipidemia Diabetes Plan/Recommendation Patient currently on acute exacerbated CHF in the context of requiring 1 unit PRBC and IV iron. Indicated IV furosemide (40 mg bid) until completing course of IV iron and fluid overload resolves. Patient would benefit from right and left heart catheterization, can be completed as outpatient once GI bleed has resolved Patient is on telemetry, ordered EKG Patient already has history of multiple episodes of severe anemia with a total of seven PRBCs required. GI on board: completed EGD which shows small hiatal hernia, erosive esophagitis and gastroenteritis, pending biopsy results. Patient required bowel rest, currently on cardiac diet. Reviewed anemia workup. Avoid blood thinners at this time until resolving GI bleed, on SCDs and protonix Indicated Benadryl for pruritus. No intermittent at this point Patient has isolated due to history of scabies (lesions are not typical of scabies), on permethrin cream. Abdominal ultrasound and CT show mild ascites in bilateral pleural effusion right greater than left. Goals of care discussed with patient for over 18 minutes: Full code status Discussed plan with Dr. Mcwilliams, patient and nurses: Patient currently on telemetry, initiated IV furosemide until fluid overload resolves and after IV iron has been administered. Patient will benefit from right and left heart catheterization but can be completed as outpatient once GI bleed has resolved. Plan discussed with: Patient, Other (Nurses) NYHA Physical activity limitations: Class3(Marked) ordinary Date of Service: Mar 17, 2025 Billing Provider: NELL MCWILLIAMS Sr., MD Cardiology Common Codes: [id number] INP/OBS CARE (High) Cardiology Secondary Visit Cod: [id number] CARE PLAN 30 MINUTES MIRANDA WINKLER RESIDENT Mar 17, 2025 13:27
[2025-03-17] MEDS: FUROSEMIDE 40 MG/4 ML VIAL IV ONE (13:45)
--- NOTE | 2025-03-17 15:02 | DVHPN2 ---
Progress Note - Dictate Date Seen: Mar 17, 2025 Medical Necessity Reason Pt with a Central, PICC or Fol: No Subjective Patient seen at bedside sitting up in bed in no acute distress There was no nausea vomiting Hemoglobin stable at 8.6 Patient was given reassurance and EGD findings were discussed Last colonoscopy negative in 2019 No gross bleeding seen vital signs Vital Sign Date Time Temp Pulse Resp B/P (MAP) Pulse Ox O2 Delivery O2 Flow Rate FiO2 03/17/25 14:12 82 18 99 03/17/25 14:03 Room Air* 0 03/17/25 12:18 97.4 139/69 (92) 97.4 Total Intake and Output 03/16/25 03/16/25 03/17/25 15:00 23:00 07:00 Intake Total 300 ml 550 ml 200 ml Balance 300 ml 550 ml 200 ml medications Current Medications Medications Dose Ordered Sig/Yesenia Route Start Time Stop Time Status Last Admin Dose Admin Ondansetron HCl 4 mg Q4HP PRN IV 03/11/25 20:45 03/16/25 23:02 4 MG Morphine Sulfate 2 mg Q4HPRN PRN IV 03/11/25 20:45 Pantoprazole Sodium 40 mg BID IV 03/12/25 10:00 03/17/25 10:17 40 MG Hydralazine HCl 10 mg Q8HP PRN IV 03/12/25 00:30 03/15/25 10:33 10 MG Ceftriaxone Sodium 50 ml @ 100 mls/hr DAILY@09 IV 03/12/25 09:00 03/17/25 07:44 100 MLS/HR Al Hydrox/Mg Hydrox/Simethicone 15 ml Q8HP PRN PO 03/12/25 06:30 Diphenhydramine HCl 25 mg Q4HP PRN IV 03/12/25 06:30 03/14/25 04:36 25 MG Labetalol HCl 10 mg Q2HPRN PRN IV 03/13/25 00:00 03/14/25 23:35 10 MG Atorvastatin Calcium 20 mg HS PO 03/15/25 22:00 03/16/25 21:25 20 MG Carvedilol 12.5 mg Q12HR PO 03/15/25 22:00 03/17/25 10:21 12.5 MG Empaglifozin 10 mg DAILY PO 03/16/25 10:00 03/17/25 10:21 10 MG Ferrous Sulfate 325 mg BIDWM PO 03/16/25 08:00 03/17/25 08:00 325 MG Hydralazine HCl 50 mg Q12HR PO 03/15/25 22:00 03/17/25 10:19 50 MG Losartan Potassium 100 mg DAILY PO 03/16/25 10:00 03/17/25 10:19 100 MG Guaifenesin/ Codeine Phosphate 15 ml Q8HPRN PRN PO 03/16/25 11:45 03/16/25 12:06 15 ML Azithromycin 250 ml @ 125 mls/hr DAILY IV 03/17/25 10:00 03/17/25 10:00 125 MLS/HR Albuterol 2.5 mg Q4HR NEB 03/16/25 14:00 03/17/25 14:03 2.5 MG Ipratropium [place] 0.5 mg Q4HR NEB 03/16/25 14:00 03/17/25 14:03 0.5 MG Methylprednisolone Sodium Succinate 40 mg Q6HR IV 03/16/25 12:00 03/17/25 12:20 40 MG Iron Sucrose 110 ml @ 110 mls/hr DAILY@1200 IV 03/17/25 12:00 03/21/25 12:59 03/17/25 12:20 110 MLS/HR Furosemide 40 mg BIDD IV 03/17/25 18:00 objective Soft abdomen no rigidity no guarding bowel sounds normal Excoriated with some scratch cook and possible early infection from scabies laboratory and microbiology Laboratory Tests 03/17/25 04:52 Test 03/17/25 04:52 Range/Units Serum Glucose 178 H 74-106 mg/dL Problems(with codes): (1) Frequent nosebleeds (2) Anemia (3) Scabies (4) Severe anemia (5) Melena (6) Near syncope (7) Generalized weakness Prognosis Plan Protonix 40 mg p.o. twice a day Carafate 1 g p.o. twice a day Patient is started on iron supplements and IV iron Outpatient follow up with GI Services to discuss elective repeat colonoscopy in the future once medically stabilized Dietary Evaluation Review Comments: 1) If patient remains NPO > 7 days, consider EN/TPN to meet at least 75% estimated daily needs 2) Advance to 60g CCHO cardiac diet when medically feasible 3) Follow-up with gastroenterology, cardiology, and nephrology 4) Continue to monitor I&O, labs, and skin integrity Expected Outcomes/Goals: 1) patient to receive nutritional support within 7 days of NPO status 2) labs to improve 3) diet to advance 4) f/u in 3-5 days Plan discussed with: Patient CC Plasma Assessment Blood Product Administration S: [id number] NEW MATTA MD Mar 17, 2025 15:02
[2025-03-17 16:01] LABS: Benzodiazephine Screen, Urine Pos (NEGATIVE)
[2025-03-17 16:04] LABS: Amphetamine Screen, Urine Neg (NEGATIVE); Barbiturate Scree,Urine Neg (NEGATIVE); Cannabinoid Screen, Urine Neg (NEGATIVE); Cocaine Screen, Urine Neg (NEGATIVE); Opiate Scree,Urine Pos (NEGATIVE); Phencyclidine Screen, Urine Neg (NEGATIVE)
[2025-03-17 16:13] LABS: Protein, Urine 253.9 mg/dL (1-14)
--- NOTE | 2025-03-17 16:42 | DVHCONRES ---
Date Seen: Mar 17, 2025 Resident Creating Document: LIN ALEMAN RESDIENT History of Present Illness Maria Elena Cantu is a 69-year-old female patient who presents to ED with chief complaint of nausea, vomiting of clear emesis, stabbing abdominal pain in epigastric region, weakness, chills and dyspnea which is chronic (a proximally two years) but has worsened past two days two days before her admission. These symptoms are similar to when she was previously admitted due to severe anemia secondary to peptic ulcer disease, she already required seven PRBCs in her life time. Patient also mentions unintentional weight loss of 20 lb in the past year. Patient had completed EGD on September 2024 which shows PUD, requires follow up with Dr. Domínguez. Denies any other associated symptoms including hematemesis, melena or any other type of bleeding. During hospitalization, patient required 1 PRBC and iron infusion, EGD which shows esophagitis and gastroenteritis, developed acute exacerbation of CHF. Past medical history: Hypertension, dyslipidemia, diabetes, anemia with requirement of seven PRBC transfusion secondary to PUD, dermatitis/scabies but not on anti-parasitic medication (followed by clerical clerk), systolic congestive heart failure (last echocardiogram on 12/2024 which shows LVEF 30%, moderate LVH, severe mitral regurgitation, moderate mitral stenosis, biatrial enlargement), stress test on 08/2019 with no ischemic changes, required life vest for 6 months in 2021 (no shocks), no previous coronary angiographies. Surgical history: EGD on 09/2024 which showed PUD, x3 Family history: Noncontributory Social history: Lives in [place] alone (next of kin is sister Jane). Denies current tobacco, alcohol and other drug abuse Allergies: Ibuprofen (not real allergy), star fruit Home medication: Atorvastatin, B complex, carvedilol, empagliflozin, ergocalciferol, ferrous sulfate, finererone, furosemide, hydralazine, isosorbide mononitrate, losartan, metoprolol, pantoprazole, sitagliptin Patient seen and examined at bedside. Patient continues with nausea mild episodes of vomiting with nonbloody emesis. Patient was admitted for further evaluation. Nephrology consulted due to hypokalemia and YOVANI. Family History: FH: congestive heart failure G8 MOTHER, Family history: Cardiovascular disease G8 SISTER, Onset:50's - 60 Family history: Diabetes mellitus G8 MOTHER, , Onset:50s - G8 SISTER, Onset:40s - 50 Allergies: Coded Allergies: Ibuprofen (Verified Allergy, Unknown, 10/03/23) Uncoded Allergies: Starfruit (Allergy, Severe, 01/02/25) Home Meds Active Scripts Ferrous Sulfate (Iron) 325 Mg Tab, 325 MG PO BID for 30 Days, #60 TAB 2 Refills Prov:OFE TORRES NP 01/04/25 Furosemide (Lasix) 40 Mg Tab, 40 MG PO BID for 30 Days, #60 TAB Prov:OFE TORRES NP 01/04/25 Carvedilol (COREG) 12.5 Mg Tab, 12.5 MG OR BID for 30 Days, #60 TAB 3 Refills Prov:OFE TORRES NP 01/04/25 Cefdinir (Cefdinir) 300 Mg Cap, 1 CAP PO BID for 7 Days, #14 CAP Prov:TERESA HERRMANN MD 07/09/24 Isosorbide Mononitrate (Isosorbide Mononitrate Er) 30 Mg Tab, 1 TAB PO DAILY for 30 Days, #30 TAB 5 Refills Prov:ALEJANDRO LEIGH RESIDENT 07/05/24 B-Complex W/ C & Folic Acid (Nephro-[place]) Tab, 1 TAB PO DAILY for 30 Days, #30 TAB 3 Refills Prov:KERA BOLTON MD 06/03/24 Metoprolol Succinate (Toprol Xl) 50 Mg Tab, 50 MG PO DAILY for 30 Days, #30 TAB 2 Refills Prov:KERA BOLTON MD 06/03/24 Furosemide (Lasix) 40 Mg Tab, 40 MG PO QAM for 30 Days, #30 TAB 3 Refills Prov:KERA BOLTON MD 06/03/24 Pantoprazole Sodium Sesquihydr (Pantoprazole Sodium) 40 Mg Tab, 40 MG PO DAILY for 30 Days, #30 TAB 2 Refills Prov:KERA BOLTON MD 06/03/24 Losartan Potassium (Losartan Potassium) 100 Mg Tab, 100 MG PO DAILY for 30 Days, #30 TAB 2 Refills Prov:KERA BOLTON MD 06/03/24 Empagliflozin (Jardiance) 10 Mg Tab, 10 MG PO DAILY for 30 Days, #30 TAB 2 Refills Prov:KERA BOLTON MD 06/03/24 Atorvastatin Calcium (ATORVASTATIN CALCIUM) 20 Mg Tab, 20 MG PO HS for 30 Days, #30 TAB 3 Refills Prov:KERA BOLTON MD 06/03/24 Ferrous Sulfate (Ferrous Sulfate) 325 Mg Tab, 1 TAB PO EVERY OTHER DAY for 30 Days, #15 TAB Prov:LIN MADRIGAL MD 02/28/24 Ergocalciferol (VITAMIN D 36869 UNIT) 50,000 [place], [address] UNIT PO Q7D for 12 Days, #12 CAP Prov:MABEL GUZMAN MD 01/11/23 Empagliflozin (Jardiance) 10 Mg Tab, 10 MG PO QAM for 30 Days, #30 TAB Prov:MABEL GUZMAN MD 01/11/23 Reported Medications Sitagliptin Phosphate (Januvia) 50 Mg Tab, 1 TAB PO DAILY, #30 TAB 5 Refills 01/02/25 Hydralazine Hcl (Hydralazine Hcl) 50 Mg Tab, 100 MG PO BID 10/03/23 Furosemide (Furosemide) 40 Mg Tab, 1 TAB PO DAILY 10/03/23 Finerenone (Kerendia) 10 Mg Tab, 1 TAB PO DAILY 10/01/23 Metoprolol Succinate (Metoprolol Succinate Er) 100 Mg Tab, 1 TAB PO DAILY 10/01/23 Losartan Potassium (Losartan Potassium) 100 Mg Tab, 100 MG PO DAILY for 30 Days, MG 07/12/21 Current Medications Current Medications Medications (Trade) Dose Ordered Sig/Yesenia Route PRN Reason Start Time Stop Time Status Last Admin Azithromycin 250 ml @ 125 mls/hr DAILY IV 03/17/25 10:00 03/17/25 10:00 Iron Sucrose 110 ml @ 110 mls/hr DAILY@1200 IV 03/17/25 12:00 03/21/25 12:59 03/17/25 15:07 Furosemide (Lasix Injection) 40 mg BIDD IV 03/17/25 18:00 Acetaminophen (Tylenol Tablet) 650 mg Q6HP PRN PO MILD PAIN (1-3 PAIN SCALE) 03/17/25 16:15 UNV Review of Systems Patient seen and examined at the bedside. Patient is complaining of nausea, and abdominal pain. Vital Signs Vital Signs Date Time Temp Pulse Resp B/P (MAP) Pulse Ox O2 Delivery O2 Flow Rate FiO2 03/17/25 16:00 97.5 71 16 119/74 (89) 96 97.5 03/17/25 14:03 Room Air* 0 21 Physical Exam General Appearance: Alert, Oriented X3, Cooperative, No acute distress HEENT: Atraumatic, PERRLA, EOMI, Mucous membrane moist/pink Respiratory: Clear to auscultation, Normal air movement Cardiovascular: Regular rate, Normal S1, Normal S2, No murmurs, no chest wall tenderness Abdominal: Mild abdominal tenderness Extremities: Bilateral grade 2 pedal edema Skin: No rashes, No breakdown, No significant lesion Neuro: Normal gait, Normal speech, Strength at 5/5 X4 ext, Normal tone, Sensation intact, Cranial nerves 3-12 NL, Reflexes 2+ Psych/Mental Status: Mental status NL, Mood NL Labs/Diagnostic Data Labs Test 03/17/25 11:17 03/17/25 04:52 03/16/25 12:10 03/14/25 04:51 Range/Units Urine Creatinine 46.28 30.0-125.0 mg/dL Urine Protein/Creatinine Ratio 5.49 Urine Total Protein 253.9 H 1-14 mg/dL Urine Opiates Screen Pos NEGATIVE Urine Fentanyl Screen Neg NEGATIVE Urine Barbiturates Screen Neg NEGATIVE Urine Phencyclidine Screen Neg NEGATIVE Urine Amphetamines Screen Neg NEGATIVE Urine Benzodiazepines Screen Pos NEGATIVE Urine Cocaine Screen Neg NEGATIVE Urine Cannabinoids Screen Neg NEGATIVE White Blood Count 4.3 #L 4.4-10.8 10^3/uL Red Blood Count 3.76 L 4.0-5.20 10^6/uL Hemoglobin 8.6 #L 12.2-16.2 g/dL Hematocrit 27.9 #L 36.0-46.0 % Mean Corpuscular Volume 74.2 L 80.0-100.0 fL Mean Corpuscular Hemoglobin 22.9 L 28.0-32.0 pg Mean Corpuscular Hemoglobin Concent 30.9 L 32.0-36.0 g/dL Red Cell Distribution Width 23.9 H 11.8-14.3 % Platelet Count 225 140-450 10^3/uL Mean Platelet Volume 8.1 6.9-10.8 fL Neutrophils (%) (Auto) 95.0 H 37.0-80.0 % Lymphocytes (%) (Auto) 3.4 L 10.0-50.0 % Monocytes (%) (Auto) 1.2 0.0-12.0 % Eosinophils (%) (Auto) 0.0 0.0-7.0 % Basophils (%) (Auto) 0.4 0.0-2.0 % Neutrophils # (Auto) 4.1 1.6-8.6 10 ^3/uL Lymphocytes # (Auto) 0.1 L 0.4-5.4 10 ^3/uL Monocytes # (Auto) 0.1 0-1.3 10 ^3/uL Eosinophils # (Auto) 0 0-0.8 10 ^3/uL Basophils # (Auto) 0 0-0.2 10 ^3/uL Nucleated Red Blood Cells 0.4 % Sodium Level 130 L 136-145 mmol/L Potassium Level 4.5 3.5-5.1 mmol/L Chloride Level 101 98-107 mmol/L Carbon Dioxide Level 22 20-31 mmol/L Anion Gap 7 5-15 Blood Urea Nitrogen 19 9-23 mg/dL Creatinine 1.83 H 0.550-1.02 mg/dL Glomerular Filtration Rate Calc 29 >90 mL/min BUN/Creatinine Ratio 10.4 10.0-20.0 Serum Glucose 178 H 74-106 mg/dL Calcium Level 8.4 L 8.7-10.4 mg/dL Total Bilirubin 0.4 0.2-1.0 mg/dL Aspartate Amino Transferase (AST) 16 13-40 U/L Alanine Aminotransferase (ALT) 16 7-40 U/L Alkaline Phosphatase 101 46-116 U/L B-Type Natriuretic Peptide 2782.97 0-100 pg/mL Total Protein 5.0 L 5.7-8.2 g/dL Albumin 2.9 L 3.2-4.8 g/dL Parathyroid Hormone (Intact) 175.9 H 18.4-80.1 pg/mL Influenza Type A Antigen Negative Negative Influenza Type B Antigen Negative Negative SARS-CoV-2 Antigen (Rapid) Negative NEGATIVE Hepatitis B Surface Antigen Negative Negative Hepatitis C Antibody Negative Negative Test 03/12/25 17:28 03/12/25 05:52 03/11/25 23:13 03/11/25 23:00 Range/Units Lipase 34 12-53 U/L Differential Total Cells Counted 100.0 100 Neutrophils % (Manual) 81 H 37.0-80.0 Band Neutrophils % (Manual) 0 Lymphocytes % (Manual) 18 10.0-50.0 Monocytes % (Manual) 1 0-12 Eosinophils % (Manual) 0 0-7 Basophils % (Manual) 0 0.0-2.0 Metamyelocytes % (manual) 0 Myelocytes % (Manual) 0 Promyelocytes % (Manual) 0 Blast Cells % (Manual) 0 Reactive Lymphocytes 0 Platelet Estimate Adequate Hypochromasia (manual) Moderate Anisocytosis (manual) Slight Microcytosis Moderate Stool Occult Blood Negative Negative Stool Occult Blood Sample #3 Negative Reticulocyte Count (auto) 2.56 H 0.5-1.5 % Haptoglobin 102 42-346 mg/dL Prothrombin Time 12.1 H 9.3-11.8 sec Prothrombin Time INR 1.16 H 0.9-1.15 Activated Partial Thromboplast Time 30.9 24.5-34.5 SEC Lactic Acid Level 1.1 0.4-2.0 mmol/L Phosphorus Level 2.8 2.4-5.1 mg/dL Magnesium Level 2.0 1.6-2.6 mg/dL Ammonia 22 11-32 umol/L Triglycerides Level 95 < 150 mg/dL Cholesterol Level 136 < 200 mg/dL LDL Cholesterol 59 < 100 mg/dL HDL Cholesterol 63 H 40-59 mg/dL Test 03/11/25 15:30 03/11/25 13:06 03/11/25 13:02 Range/Units Urine Color Light-yellow Yellow Urine Clarity Clear Clear Urine pH 6.0 5.0-9.0 Urine Specific [place] 1.018 1.001-1.035 Urine Protein 3+ H Negative Urine Ketones Negative Negative Urine Blood 1+ H Negative /uL Urine Nitrite Negative Negative Urine Bilirubin Negative Negative Urine Urobilinogen Normal Negative mg/dL Urine Leukocyte Esterase Negative Negative /uL Urine RBC <1 0 - 4 /hpf Urine Microscopic WBC 1 0-5 /HPF Urine Squamous Epithelial Cells None seen <5 /hpf Urine Bacteria None seen None Seen /hpf Urine Glucose 1+ H Normal mg/dL Target Cells Few Ovalocytes Few Schistocytes Few Hemoglobin A1c 5.8 H <5.7 % A1C Ferritin 11.5 10-291 ng/mL Lactate Dehydrogenase 281 H 120-246 U/L Troponin I High Sensitivity 20 </=34 ng/L Vitamin B12 Level 778 211-911 pg/mL Vitamin D 25-Hydroxy 31.6 30.0-100 ng/mL Thyroid Stimulating Hormone (TSH) 2.70 0.55-4.78 uIU/mL POC Glucose 175 H 70-106 mg/dl Assessment This is a 69-year-old lady with past medical history of hypertension, diabetes, heart failure with the ejection fraction 30%, and peptic ulcer disease came to the hospital due to nausea, vomiting and abdominal pain. Nephrology consulted due to hyponatremia and YOVANI. Assessment: YOVANI, on CKD stage IIIb, likely VMN Mild asymptomatic hyponatremia Diabetes type 2 Hypertension History of peptic ulcer disease Possible acute on chronic systolic heart failure * CT shows bilateral grossly normal kidneys * Serum creatinine upon admission was 1.65, fluctuating, today 1.83 * Serum sodium 130 Plan/recommendation: * IV Lasix 40 mg b.i.d. * We recommend to taper down steroid as the patient's condition allows * We will follow up with the patient Thank you for giving us the opportunity to care of your patient. Please call back if you have any questions/concerns. Plan discussed with: Patient, Other (RN) LIN ALEMAN Mar 17, 2025 16:42 TIM SALES MD Mar 18, 2025 18:29
[2025-03-17] MEDS: ACETAMINOPHEN 325 MG TAB PO PRN (17:16)
[2025-03-17] MEDS: FUROSEMIDE 40 MG/4 ML VIAL IV SCH (17:17)
--- NOTE | 2025-03-17 18:35 | ECG ---
[facility] Test Date: 2025-03-17 Test Time: 15:52:13 Pat Name: ALISTAIR CARDOZA Department: Respiratoy Room: 0236T A Gender: F Observation Assistant: GAL : 1955 Requested By: MIRANDA WINKLER Order Number: [id number] Reading MD: Measurements Intervals [place] Rate: 69 P: 1 OK: 178 QRS: -30 QRSD: 186 T: 148 QT: 466 QTc: 500 Interpretive Statements Sinus rhythm Left bundle branch block Please click the below link to view image of tracing.
[2025-03-18] VITALS (10 sets, daily range): BP systolic 115–140; BP diastolic 67–72; PULSE 67–86; RESP 16–18; TEMP 97.5–97.9; O2SAT 91–100
--- NOTE | 2025-03-18 08:02 | DVHPN2 ---
Reviewed: Care Plan, H&P, Labs, Medications, Previous Orders, Radiology Changes from previous H/P or p: No Changes Objective Vitals Vital Signs Date Time Temp Pulse Resp B/P (MAP) Pulse Ox O2 Delivery O2 Flow Rate FiO2 03/18/25 07:49 77 16 100 03/18/25 07:43 Nasal Cannula* 2 28 03/18/25 06:59 133/72 03/18/25 05:00 97.5 97.5 Intake/Output Intake and Output 03/18/25 07:00 Intake Total 750 ml Output Total 800 ml Balance -50 ml Intake Oral 340 ml IV Total 410 ml Output Urine Total 800 ml Medications Current Medications Medications Dose Ordered Sig/Yesenia Route Start Time Stop Time Status Last Admin Dose Admin Ondansetron HCl 4 mg Q4HP PRN IV 03/11/25 20:45 03/16/25 23:02 4 MG Morphine Sulfate 2 mg Q4HPRN PRN IV 03/11/25 20:45 Pantoprazole Sodium 40 mg BID IV 03/12/25 10:00 03/17/25 23:39 40 MG Hydralazine HCl 10 mg Q8HP PRN IV 03/12/25 00:30 03/15/25 10:33 10 MG Ceftriaxone Sodium 50 ml @ 100 mls/hr DAILY@09 IV 03/12/25 09:00 03/17/25 07:44 100 MLS/HR Al Hydrox/Mg Hydrox/Simethicone 15 ml Q8HP PRN PO 03/12/25 06:30 Diphenhydramine HCl 25 mg Q4HP PRN IV 03/12/25 06:30 03/14/25 04:36 25 MG Labetalol HCl 10 mg Q2HPRN PRN IV 03/13/25 00:00 03/14/25 23:35 10 MG Atorvastatin Calcium 20 mg HS PO 03/15/25 22:00 03/17/25 23:39 20 MG Carvedilol 12.5 mg Q12HR PO 03/15/25 22:00 03/17/25 23:39 12.5 MG Empaglifozin 10 mg DAILY PO 03/16/25 10:00 03/17/25 10:21 10 MG Ferrous Sulfate 325 mg BIDWM PO 03/16/25 08:00 03/17/25 17:16 325 MG Hydralazine HCl 50 mg Q12HR PO 03/15/25 22:00 03/17/25 23:40 50 MG Losartan Potassium 100 mg DAILY PO 03/16/25 10:00 03/17/25 10:19 100 MG Guaifenesin/ Codeine Phosphate 15 ml Q8HPRN PRN PO 03/16/25 11:45 03/16/25 12:06 15 ML Azithromycin 250 ml @ 125 mls/hr DAILY IV 03/17/25 10:00 03/17/25 10:00 125 MLS/HR Albuterol 2.5 mg Q4HR NEB 03/16/25 14:00 03/18/25 07:43 2.5 MG Ipratropium [place] 0.5 mg Q4HR NEB 03/16/25 14:00 03/18/25 07:43 0.5 MG Methylprednisolone Sodium Succinate 40 mg Q6HR IV 03/16/25 12:00 03/18/25 06:58 40 MG Iron Sucrose 110 ml @ 110 mls/hr DAILY@1200 IV 03/17/25 12:00 03/21/25 12:59 03/17/25 15:07 110 MLS/HR Furosemide 40 mg BIDD IV 03/17/25 18:00 03/18/25 06:59 40 MG Acetaminophen 650 mg Q6HP PRN PO 03/17/25 16:15 03/17/25 17:16 650 MG Laboratory Results Laboratory Tests 03/17/25 04:52 Urinalysis Test 03/11/25 15:30 03/17/25 11:17 Urine Color Light-yellow (Yellow) Urine Clarity Clear (Clear) Urine pH 6.0 (5.0-9.0) Urine Specific [place] 1.018 (1.001-1.035) Urine Protein 3+ (Negative) H Urine Ketones Negative (Negative) Urine Blood 1+ /uL (Negative) H Urine Nitrite Negative (Negative) Urine Bilirubin Negative (Negative) Urine Urobilinogen Normal mg/dL (Negative) Urine Leukocyte Esterase Negative /uL (Negative) Urine RBC <1 /hpf (0 - 4) Urine Microscopic WBC 1 /HPF (0-5) Urine Squamous Epithelial Cells None seen /hpf (<5) Urine Bacteria None seen /hpf (None Seen) Urine Glucose 1+ mg/dL (Normal) H Urine Creatinine 46.28 mg/dL (30.0-125.0) Urine Protein/Creatinine Ratio 5.49 Urine Total Protein 253.9 mg/dL (1-14) H Labs and/or images reviewed: Labs reviewed by me, Image(s) reviewed by me Assessment/Plan Assessment/Plan Severe anemia hemoglobin 6.9 improved to 8.8 after 1 unit RBC transfusion Acute upper GI bleed secondary to peptic ulcer disease : Consult for Dr. Barillas appreciated ,: Pantoprazole, Carafate Status post EGD with polypectomy and biopsy of two gastric polyps by Dr. Barillas Erosive gastritis erosive duodenitis by EGD Acute hyponatremia resolved YOVANI hemodynamically mediated (VMN) consult by Dr Will appreciated Chronic systolic congestive heart failure (HFrEF 30%), no exacerbation Severe mitral regurgitation and moderate mitral stenosis Hypertension resume home meds Dyslipidemia History of scabies on the buttocks: Permethrin cream Diabetes Community-acquired pneumonia; Continue Rocephin, add azithromycin albuterol and Atrovent med neb chest x-ray Solu-Carmel Zhong at bed side Time spent 50 minutes Advanced care planning time 20 minutes Patient is full code Patient's lives alone Patient is being discharged to assisted facility for two weeks of IV antibiotics for pneumonia and for severe anemia Plan discussed with: Patient My Orders Orders - ABRIL SAAB MD Procedure Category Date Status Time *[facility] CONS 03/17/25 Transmitted -[place] 09:52 * Cardiology Consult CONS 03/17/25 Transmitted 11:20 Insert Midline ORDERS 03/17/25 Transmitted 13:23 Acetaminophen Tablet PHA 03/17/25 In Process (Tylenol Tablet) 16:15 Insert Midline ORDERS 03/18/25 Transmitted 07:57 Date of Service: Mar 18, 2025 Billing Provider: ABRIL SAAB MD Common Visit Codes: [id number] INP/OBS CARE(HIGH) ABRIL SAAB MD Mar 18, 2025 08:02
--- NOTE | 2025-03-18 08:33 | DVHDS2 ---
Discharge Summary Date of Admission Mar 11, 2025 at 20:33 Date of Discharge: Mar 18, 2025 Admitting Diagnosis Generalized weakness Wounds: EGD Labs/Diagnostic Data: Laboratory Results Test 03/17/25 11:17 03/17/25 04:52 03/16/25 12:10 03/14/25 04:51 Urine Creatinine 46.28 mg/dL (30.0-125.0) Urine Protein/Creatinine Ratio 5.49 Urine Total Protein 253.9 mg/dL (1-14) Urine Opiates Screen Pos (NEGATIVE) Urine Fentanyl Screen Neg (NEGATIVE) Urine Barbiturates Screen Neg (NEGATIVE) Urine Phencyclidine Screen Neg (NEGATIVE) Urine Amphetamines Screen Neg (NEGATIVE) Urine Benzodiazepines Screen Pos (NEGATIVE) Urine Cocaine Screen Neg (NEGATIVE) Urine Cannabinoids Screen Neg (NEGATIVE) White Blood Count 4.3 10^3/uL (4.4-10.8) Red Blood Count 3.76 10^6/uL (4.0-5.20) Hemoglobin 8.6 g/dL (12.2-16.2) Hematocrit 27.9 % (36.0-46.0) Mean Corpuscular Volume 74.2 fL (80.0-100.0) Mean Corpuscular Hemoglobin 22.9 pg (28.0-32.0) Mean Corpuscular Hemoglobin Concent 30.9 g/dL (32.0-36.0) Red Cell Distribution Width 23.9 % (11.8-14.3) Platelet Count 225 10^3/uL (140-450) Mean Platelet Volume 8.1 fL (6.9-10.8) Neutrophils (%) (Auto) 95.0 % (37.0-80.0) Lymphocytes (%) (Auto) 3.4 % (10.0-50.0) Monocytes (%) (Auto) 1.2 % (0.0-12.0) Eosinophils (%) (Auto) 0.0 % (0.0-7.0) Basophils (%) (Auto) 0.4 % (0.0-2.0) Neutrophils # (Auto) 4.1 10 ^3/uL (1.6-8.6) Lymphocytes # (Auto) 0.1 10 ^3/uL (0.4-5.4) Monocytes # (Auto) 0.1 10 ^3/uL (0-1.3) Eosinophils # (Auto) 0 10 ^3/uL (0-0.8) Basophils # (Auto) 0 10 ^3/uL (0-0.2) Nucleated Red Blood Cells 0.4 % Sodium Level 130 mmol/L (136-145) Potassium Level 4.5 mmol/L (3.5-5.1) Chloride Level 101 mmol/L (98-107) Carbon Dioxide Level 22 mmol/L (20-31) Anion Gap 7 (5-15) Blood Urea Nitrogen 19 mg/dL (9-23) Creatinine 1.83 mg/dL (0.550-1.02) Glomerular Filtration Rate Calc 29 mL/min (>90) BUN/Creatinine Ratio 10.4 (10.0-20.0) Serum Glucose 178 mg/dL (74-106) Calcium Level 8.4 mg/dL (8.7-10.4) Total Bilirubin 0.4 mg/dL (0.2-1.0) Aspartate Amino Transferase (AST) 16 U/L (13-40) Alanine Aminotransferase (ALT) 16 U/L (7-40) Alkaline Phosphatase 101 U/L (46-116) B-Type Natriuretic Peptide 2782.97 pg/mL (0-100) Total Protein 5.0 g/dL (5.7-8.2) Albumin 2.9 g/dL (3.2-4.8) Parathyroid Hormone (Intact) 175.9 pg/mL (18.4-80.1) Influenza Type A Antigen Negative (Negative) Influenza Type B Antigen Negative (Negative) SARS-CoV-2 Antigen (Rapid) Negative (NEGATIVE) Hepatitis B Surface Antigen Negative (Negative) Hepatitis C Antibody Negative (Negative) Test 03/12/25 17:28 03/12/25 05:52 03/11/25 23:13 03/11/25 23:00 Lipase 34 U/L (12-53) Differential Total Cells Counted 100.0 (100) Neutrophils % (Manual) 81 (37.0-80.0) Band Neutrophils % (Manual) 0 Lymphocytes % (Manual) 18 (10.0-50.0) Monocytes % (Manual) 1 (0-12) Eosinophils % (Manual) 0 (0-7) Basophils % (Manual) 0 (0.0-2.0) Metamyelocytes % (manual) 0 Myelocytes % (Manual) 0 Promyelocytes % (Manual) 0 Blast Cells % (Manual) 0 Reactive Lymphocytes 0 Platelet Estimate Adequate Hypochromasia (manual) Moderate Anisocytosis (manual) Slight Microcytosis Moderate Stool Occult Blood Negative (Negative) Stool Occult Blood Sample #3 (Negative) Reticulocyte Count (auto) 2.56 % (0.5-1.5) Haptoglobin 102 mg/dL (42-346) Prothrombin Time 12.1 sec (9.3-11.8) Prothrombin Time INR 1.16 (0.9-1.15) Activated Partial Thromboplast Time 30.9 SEC (24.5-34.5) Lactic Acid Level 1.1 mmol/L (0.4-2.0) Phosphorus Level 2.8 mg/dL (2.4-5.1) Magnesium Level 2.0 mg/dL (1.6-2.6) Ammonia 22 umol/L (11-32) Triglycerides Level 95 mg/dL (< 150) Cholesterol Level 136 mg/dL (< 200) LDL Cholesterol 59 mg/dL (< 100) HDL Cholesterol 63 mg/dL (40-59) Test 03/11/25 15:30 03/11/25 13:06 03/11/25 13:02 Urine Color Light-yellow (Yellow) Urine Clarity Clear (Clear) Urine pH 6.0 (5.0-9.0) Urine Specific [place] 1.018 (1.001-1.035) Urine Protein 3+ (Negative) Urine Ketones Negative (Negative) Urine Blood 1+ /uL (Negative) Urine Nitrite Negative (Negative) Urine Bilirubin Negative (Negative) Urine Urobilinogen Normal mg/dL (Negative) Urine Leukocyte Esterase Negative /uL (Negative) Urine RBC <1 /hpf (0 - 4) Urine Microscopic WBC 1 /HPF (0-5) Urine Squamous Epithelial Cells None seen /hpf (<5) Urine Bacteria None seen /hpf (None Seen) Urine Glucose 1+ mg/dL (Normal) Target Cells Few Ovalocytes Few Schistocytes Few Hemoglobin A1c 5.8 % A1C (<5.7) Ferritin 11.5 ng/mL (10-291) Lactate Dehydrogenase 281 U/L (120-246) Troponin I High Sensitivity 20 ng/L (</=34) Vitamin B12 Level 778 pg/mL (211-911) Vitamin D 25-Hydroxy 31.6 ng/mL (30.0-100) Thyroid Stimulating Hormone (TSH) 2.70 uIU/mL (0.55-4.78) POC Glucose 175 mg/dl (70-106) Other Laboratory Tests 03/17/25 04:52 Brief Hx & Hospital Course: 69-year-old female came in for severe anemia hemoglobin 6.9 improved to 8.8 after 1 unit RBC transfusion EGD by Dr. Barillas showed gastric polyps with a erosive gastritis erosive duodenitis biopsy result pending placed on pantoprazole and Carafate acute kidney injury seen by vocational aide resolving patient has a history of systolic congestive heart failure 30 percent ejection fraction severe mitral regurgitation and mitral stenosis history of scabies and the buttocks permethrin cream was applied vanc patient has community-acquired pneumonia treated with Rocephin azithromycin IV albuterol Atrovent and Solu- Medrol. The antibiotics will be continued for two more weeks in the care home facility. The patient is being discharged to SNF for IV antibiotics and physical therapy. Plan is acceptable to the patient. Patient says sister Maxine at bedside Consults/Reason for consult GI Dr. Barillas Nephrology Operations or Procedures EGD Condition at Discharge: Fair Final Diagnosis/Problems List Severe anemia hemoglobin 6.9 improved to 8.8 after 1 unit RBC transfusion Acute upper GI bleed secondary to peptic ulcer disease : Consult for Dr. Barillas appreciated ,: Pantoprazole, Carafate Status post EGD with polypectomy and biopsy of two gastric polyps by Dr. Barillas Erosive gastritis erosive duodenitis by EGD Acute hyponatremia resolved YOVANI hemodynamically mediated (VMN) consult by Dr Will appreciated Chronic systolic congestive heart failure (HFrEF 30%), no exacerbation Severe mitral regurgitation and moderate mitral stenosis Hypertension resume home meds Dyslipidemia History of scabies on the buttocks: Permethrin cream Diabetes Community-acquired pneumonia; Continue Rocephin, add azithromycin albuterol and Atrovent med neb chest x-ray Solu-Medrol Discharge Disposition: Longterm Facility Discharge Instruct/Medications Diet: Cardiac 2g Na,low cholest Activity: Light activity Follow Up/Referral: [facility] Medications: Rocephin 1 g IV daily for 14 days Azithromycin 500 mg IV daily for 14 days See list for other meds Scheduled Atorvastatin Calcium (Atorvastatin Calcium), 20 MG PO HS B-Complex W/ C & Folic Acid (Nephro-Rio), 1 TAB PO DAILY Carvedilol (Coreg), 12.5 MG OR BID Cefdinir (Cefdinir), 1 CAP PO BID Empagliflozin (Jardiance), 10 MG PO QAM Empagliflozin (Jardiance), 10 MG PO DAILY Ergocalciferol (Vitamin D 28244 Unit), 50,000 UNIT PO Q7D Ferrous Sulfate (Ferrous Sulfate), 1 TAB PO EVERY OTHER DAY Ferrous Sulfate (Iron), 325 MG PO BID Finerenone (Kerendia), 1 TAB PO DAILY, (Reported) Furosemide (Furosemide), 1 TAB PO DAILY, (Reported) Furosemide (Lasix), 40 MG PO QAM Furosemide (Lasix), 40 MG PO BID Hydralazine Hcl (Hydralazine Hcl), 100 MG PO BID, (Reported) Isosorbide Mononitrate (Isosorbide Mononitrate Er), 1 TAB PO DAILY Losartan Potassium (Losartan Potassium), 100 MG PO DAILY, (Reported) Losartan Potassium (Losartan Potassium), 100 MG PO DAILY Metoprolol Succinate (Metoprolol Succinate Er), 1 TAB PO DAILY, (Reported) Metoprolol Succinate (Toprol Xl), 50 MG PO DAILY Pantoprazole Sodium Sesquihydr (Pantoprazole Sodium), 40 MG PO DAILY Sitagliptin Phosphate (Januvia), 1 TAB PO DAILY, (Reported) 49 (Time taken for discharge summary 49 minutes) Discharge Statement: "Patient was advised to return to the ER or call 911 if any headaches, dizziness, shortness of breath, chest pain, abdominal pain, bleeding, fevers, or worsening of medical condition. Patient was counseled about treatment plan, medications, possible side effects, patientverbalized understanding. All questions were answered to the best of my ability. This discharge took greater then 30 minutes in planning, reviewing documentation, counseling the patient, and discussing with other team members." ASSESSMENT ASSESSMENT Hospital Course Improved Assessment Severe anemia hemoglobin 6.9 improved to 8.8 after 1 unit RBC transfusion Acute upper GI bleed secondary to peptic ulcer disease : Consult for Dr. Barillas appreciated ,: Pantoprazole, Carafate Status post EGD with polypectomy and biopsy of two gastric polyps by Dr. Barillas Erosive gastritis erosive duodenitis by EGD Acute hyponatremia resolved YOVANI hemodynamically mediated (VMN) consult by Dr Will appreciated Chronic systolic congestive heart failure (HFrEF 30%), no exacerbation Severe mitral regurgitation and moderate mitral stenosis Hypertension resume home meds Dyslipidemia History of scabies on the buttocks: Permethrin cream Diabetes Community-acquired pneumonia; Continue Rocephin, add azithromycin albuterol and Atrovent med neb chest x-ray Solu-Medrol Date of Service: Mar 18, 2025 Billing Provider: ABRIL SAAB MD Common Visit Codes: 19429-IBT/OBS DISCH DAY >30min ABRIL SAAB MD Mar 18, 2025 08:33
--- NOTE | 2025-03-18 09:59 | DVH ---
EXAM: XY CHEST XRAY 1 VIEW Indication: Pain; CHF Technique: Single frontal view of the chest was obtained Comparison: XY CHEST PORTABLE on DOS: 03/16/25, XY CHEST PORTABLE on DOS: 03/11/25, XY CHEST PORTABLE on DOS: 01/03/25, XY CHEST PORTABLE on DOS: 01/01/25, XY CHEST PORTABLE on DOS: 07/02/24 FINDINGS: Lines and Tubes: None Lungs: Small bilateral pleural effusions and pulmonary vascular congestion. No pneumothorax. Cardiomediastinal contours: Cardiomegaly. Atherosclerotic vascular calcifications of the thoracic ao rta are noted. Bones: No acute osseous abnormality. IMPRESSION: No acute cardiopulmonary disease.
--- NOTE | 2025-03-18 11:30 | DVHPNRES ---
Progress Note Date Seen: Mar 18, 2025 Resident Creating Document: MIRANDA WINKLER RESIDENT Medical Necessity Reason Pt with a Central, PICC or Fol: No Subjective Review of Systems Maria Elena Cantu is a 69-year-old female patient who presents to ED with chief complaint of nausea, vomiting of clear emesis, stabbing abdominal pain in epigastric region, weakness, chills and dyspnea which is chronic (a proximally two years) but has worsened past two days two days before her admission. These symptoms are similar to when she was previously admitted due to severe anemia secondary to peptic ulcer disease, she already required seven PRBCs in her lifetime. Patient also mentions unintentional weight loss of 20 lb in the past year. Patient had completed EGD on September 2024 which shows PUD, requires follow up with Dr. Domínguez. Denies any other associated symptoms including hematemesis, melena or any other type of bleeding. During hospitalization, patient required 1 PRBC and iron infusion, EGD which shows esophagitis and gastroenteritis, developed acute exacerbation of CHF. 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 Surgical history: EGD on 09/2024 which showed PUD, x3 Family history: Noncontributory Social history: Lives in [place] alone (next of kin is sister Jane). Denies current tobacco, alcohol and other drug abuse Allergies: Ibuprofen (not real allergy), star fruit Home medication: Atorvastatin, B complex, carvedilol, empagliflozin, ergocalciferol, ferrous sulfate, finererone, furosemide, hydralazine, isosorbide mononitrate, losartan, metoprolol, pantoprazole, sitagliptin Patient seen and examined at bedside. Patient has no new complaints. Dyspnea and lower limb swelling has improved. Objective vital signs Vital Sign Date Time Temp Pulse Resp B/P (MAP) Pulse Ox O2 Delivery O2 Flow Rate FiO2 03/18/25 11:04 140/69 03/18/25 10:50 80 03/18/25 09:47 16 100 03/18/25 09:41 Nasal Cannula* 2 28 03/18/25 09:00 97.8 97.8 Total Intake and Output 03/17/25 03/17/25 03/18/25 15:00 23:00 07:00 Intake Total 300 ml 110 ml 340 ml Output Total 800 ml Balance 300 ml 110 ml -460 ml medications Current Medications Medications Dose Ordered Sig/Yesenia Route Start Time Stop Time Status Last Admin Dose Admin Ondansetron HCl 4 mg Q4HP PRN IV 03/11/25 20:45 03/16/25 23:02 4 MG Morphine Sulfate 2 mg Q4HPRN PRN IV 03/11/25 20:45 Pantoprazole Sodium 40 mg BID IV 03/12/25 10:00 03/18/25 10:48 40 MG Hydralazine HCl 10 mg Q8HP PRN IV 03/12/25 00:30 03/15/25 10:33 10 MG Ceftriaxone Sodium 50 ml @ 100 mls/hr DAILY@09 IV 03/12/25 09:00 03/18/25 09:00 100 MLS/HR Al Hydrox/Mg Hydrox/Simethicone 15 ml Q8HP PRN PO 03/12/25 06:30 Diphenhydramine HCl 25 mg Q4HP PRN IV 03/12/25 06:30 03/14/25 04:36 25 MG Labetalol HCl 10 mg Q2HPRN PRN IV 03/13/25 00:00 03/14/25 23:35 10 MG Atorvastatin Calcium 20 mg HS PO 03/15/25 22:00 03/17/25 23:39 20 MG Carvedilol 12.5 mg Q12HR PO 03/15/25 22:00 03/18/25 10:50 12.5 MG Empaglifozin 10 mg DAILY PO 03/16/25 10:00 03/18/25 10:48 10 MG Ferrous Sulfate 325 mg BIDWM PO 03/16/25 08:00 03/18/25 10:50 325 MG Hydralazine HCl 50 mg Q12HR PO 03/15/25 22:00 03/18/25 10:50 50 MG Losartan Potassium 100 mg DAILY PO 03/16/25 10:00 03/18/25 11:04 100 MG Guaifenesin/ Codeine Phosphate 15 ml Q8HPRN PRN PO 03/16/25 11:45 03/16/25 12:06 15 ML Azithromycin 250 ml @ 125 mls/hr DAILY IV 03/17/25 10:00 03/17/25 10:00 125 MLS/HR Albuterol 2.5 mg Q4HR NEB 03/16/25 14:00 03/18/25 09:41 2.5 MG Ipratropium [place] 0.5 mg Q4HR NEB 03/16/25 14:00 03/18/25 09:41 0.5 MG Methylprednisolone Sodium Succinate 40 mg Q6HR IV 03/16/25 12:00 03/18/25 06:58 40 MG Iron Sucrose 110 ml @ 110 mls/hr DAILY@1200 IV 03/17/25 12:00 03/21/25 12:59 03/17/25 15:07 110 MLS/HR Furosemide 40 mg BIDD IV 03/17/25 18:00 03/18/25 06:59 40 MG Acetaminophen 650 mg Q6HP PRN PO 03/17/25 16:15 03/17/25 17:16 650 MG Examination Patient lying in bed, in no acute distress General: Lucid, afebrile, mucosae are moist Cardiovascular: Normal S1 and S2. Holosystolic murmur best heard in apex which radiates towards axilla intensity 3/6. No gallops or rubs Respiratory: Normal ventilation mechanics. Clear lung sounds on auscultation Abdomen: Soft, nontender, no organomegaly, normal bowel sounds MSK/skin: Mobilizes 4 limbs. Skin is dry and warm. Excoriations in bilateral legs, left more than right, mild erythema on legs and dorsal aspect of bilateral forearm. Bilateral perimalleolar pitting edema Neurological: Oriented in 3 spheres. No motor no sensitive deficits. Pupils are isocoric and reactive laboratory and microbiology Laboratory Tests 03/17/25 04:52 Test 03/17/25 04:52 Range/Units Serum Glucose 178 H 74-106 mg/dL Problem List/Assessment/Plan Problem List/Assessment/Plan Assessment Acute on chronic systolic congestive heart failure (HFrEF, LVEF 30%) Severe mitral regurgitation and moderate mitral stenosis Severe anemia - s/p Upper GI bleed secondary to esophagitis and gastroenteritis Asymptomatic hypovolemic hyponatremia YOVANI hemodynamically mediated (VMN) on CKD (baseline GFR 24 stage IV) Scabieis Hypertension Dyslipidemia Diabetes Plan/Recommendation Patient currently on acute exacerbated CHF in the context of requiring 1 unit PRBC and IV iron. Indicated IV furosemide (40 mg bid) until completing course of IV iron and fluid overload resolves. Will be switched to PO by primary team Patient would benefit from right and left heart catheterization, can be completed as outpatient once GI bleed has resolved Patient is on telemetry, ordered EKG Patient already has history of multiple episodes of severe anemia with a total of seven PRBCs required. GI on board: completed EGD which shows small hiatal hernia, erosive esophagitis and gastroenteritis, pending biopsy results. Patient required bowel rest, currently on cardiac diet. Reviewed anemia workup. Avoid blood thinners at this time until resolving GI bleed, on SCDs and protonix Indicated Benadryl for pruritus. No intermittent at this point Patient has isolated due to history of scabies (lesions are not typical of scabies), on permethrin cream. Abdominal ultrasound and CT show mild ascites in bilateral pleural effusion right greater than left. Goals of care discussed with patient for over 18 minutes: Full code status Discussed plan with Dr. Mcwilliams, patient and nurses: Patient currently on telemetry, initiated IV furosemide until fluid overload resolves and after IV iron has been administered, will be switched by primary team. Patient will benefit from right and left heart catheterization but can be completed as outpatient once GI bleed has resolved. Planning on discharge to SNF once bed is available. Cardiology will sign off. Thank you for letting us provide care to the patient. Plan discussed with: Patient, Other (Nurses) My Orders My Orders Orders - MIRANDA WINKLER RESIDENT Procedure Category Date Status Time Furosemide Injection PHA 03/17/25 In Process (Lasix Injection) 18:00 Complete Blood Count LAB 03/18/25 Logged 08:57 Basic Metabolic Panel LAB 03/18/25 Logged 08:57 Chest Xray 1 View XY 03/18/25 Resulted 08:58 Dietary Evaluation Review Comments: 1) If patient remains NPO > 7 days, consider EN/TPN to meet at least 75% estimated daily needs 2) Advance to 60g CCHO cardiac diet when medically feasible 3) Follow-up with gastroenterology, cardiology, and nephrology 4) Continue to monitor I&O, labs, and skin integrity Expected Outcomes/Goals: 1) patient to receive nutritional support within 7 days of NPO status 2) labs to improve 3) diet to advance 4) f/u in 3-5 days CC Plasma Assessment Blood Product Administration S: [id number] Visit Coding Cardiology RES Date of Service: Mar 18, 2025 Billing Provider: NELL MCWILLIAMS Sr., MD Cardiology Common Codes: 03946-[id number] HOSP CARE(High Cardiology Secondary Visit Cod: [id number] CARE PLAN 30 MINUTES MIRANDA WINKLER RESIDENT Mar 18, 2025 11:30
[2025-03-18 11:39] LABS: Mean Corpuscular Volume 73.6 fL (80.0-100.0)
[2025-03-18 11:41] LABS: Hematocrit 25.7 % (36.0-46.0); Hemoglobin 8.0 g/dL (12.2-16.2); Mean Corpuscular Hemoglobin 22.9 pg (28.0-32.0); Nucleated Red Blood Cells % 1.1 %
[2025-03-18 11:50] LABS: Potassium 4.1 mmol/L (3.5-5.1)
[2025-03-18 11:51] LABS: Anion Gap 9 (5-15); Carbon Dioxide 21 mmol/L (20-31)
[2025-03-18 11:57] LABS: BUN/Creatinine Ratio 9.8 (10.0-20.0); Blood Urea Nitrogen 21 mg/dL (9-23)
[2025-03-18 12:03] LABS: Calcium 8.6 mg/dL (8.7-10.4); Chloride 97 mmol/L (98-107); Glucose 169 mg/dL (74-106); Sodium 127 mmol/L (136-145)
--- NOTE | 2025-03-18 16:52 | DVHPN2 ---
Progress Note Date Seen: Mar 18, 2025 Resident Creating Document: LIN ALEMAN RESDIENT Medical Necessity Reason Pt with a Central, PICC or Fol: No Subjective Review of Systems Patient is seen and examined at the bedside, patient is feeling better. Objective vital signs Vital Sign Date Time Temp Pulse Resp B/P (MAP) Pulse Ox O2 Delivery O2 Flow Rate FiO2 03/18/25 13:00 97.9 67 18 115/67 (83) 96 97.9 03/18/25 09:41 Nasal Cannula* 2 28 Total Intake and Output 03/17/25 03/17/25 03/18/25 15:00 23:00 07:00 Intake Total 300 ml 110 ml 340 ml Output Total 800 ml Balance 300 ml 110 ml -460 ml Examination General Appearance: Alert, Oriented X3, Cooperative, No acute distress HEENT: Atraumatic, PERRLA, EOMI, Mucous membrane moist/pink Respiratory: Clear to auscultation, Normal air movement Cardiovascular: Regular rate, Normal S1, Normal S2, No murmurs, no chest wall tenderness Abdominal: Mild abdominal tenderness Extremities: Bilateral grade 2 pedal edema Skin: No rashes, No breakdown, No significant lesion Neuro: Normal gait, Normal speech, Strength at 5/5 X4 ext, Normal tone, Sensation intact, Cranial nerves 3-12 NL, Reflexes 2+ Psych/Mental Status: Mental status NL, Mood NL laboratory and microbiology Laboratory Tests 03/18/25 10:50 Test 03/18/25 10:50 Range/Units Serum Glucose 169 H 74-106 mg/dL Problem List/Assessment/Plan Problem List/Assessment/Plan This is a 69-year-old lady with past medical history of hypertension, diabetes, heart failure with the ejection fraction 30%, and peptic ulcer disease came to the hospital due to nausea, vomiting and abdominal pain. Nephrology consulted due to hyponatremia and YOVANI. Assessment: YOVANI, on CKD stage IIIb, likely VMN Mild asymptomatic hyponatremia Diabetes type 2 Hypertension History of peptic ulcer disease Possible acute on chronic systolic heart failure * CT shows bilateral grossly normal kidneys * Serum creatinine upon admission was 1.65, fluctuating, today 1.83 * Serum sodium 130 Plan/recommendation: * oral Lasix 40 mg b.i.d. * We recommend to taper down steroid as the patient's condition allows * We sing off the patient. Thank you for giving us the opportunity to care of your patient. Please call back if you have any questions/concerns. Plan discussed with: Patient, Other (RN) Dietary Evaluation Review Comments: 1) If patient remains NPO > 7 days, consider EN/TPN to meet at least 75% estimated daily needs 2) Advance to 60g CCHO cardiac diet when medically feasible 3) Follow-up with gastroenterology, cardiology, and nephrology 4) Continue to monitor I&O, labs, and skin integrity Expected Outcomes/Goals: 1) patient to receive nutritional support within 7 days of NPO status 2) labs to improve 3) diet to advance 4) f/u in 3-5 days CC Plasma Assessment Blood Product Administration S: [id number] LIN ALEMAN [facility] Mar 18, 2025 16:52
--- NOTE | 2025-03-18 21:23 | DVHPN2 ---
Progress Note - Dictate Date Seen: Mar 18, 2025 (Late entry Patient seen at 1:00 p.m.) Medical Necessity Reason Pt with a Central, PICC or Fol: No Subjective Patient seen at bedside sitting up in bed in no acute distress There was no nausea vomiting Hemoglobin stable at 8.0 Patient was given reassurance and EGD findings were discussed Last colonoscopy negative in 2019 No gross bleeding seen vital signs Vital Sign Date Time Temp Pulse Resp B/P (MAP) Pulse Ox O2 Delivery O2 Flow Rate FiO2 03/18/25 13:00 97.9 67 18 115/67 (83) 96 97.9 03/18/25 09:41 Nasal Cannula* 2 28 Total Intake and Output 03/17/25 03/17/25 03/18/25 15:00 23:00 07:00 Intake Total 300 ml 110 ml 340 ml Output Total 800 ml Balance 300 ml 110 ml -460 ml objective Soft abdomen no rigidity no guarding bowel sounds normal Excoriated with some scratch cook and possible early infection from scabies laboratory and microbiology Laboratory Tests 03/18/25 10:50 Test 03/18/25 10:50 Range/Units Serum Glucose 169 H 74-106 mg/dL Problems(with codes): (1) Anemia (2) Scabies (3) Frequent nosebleeds (4) Hyperglycemia due to type 2 diabetes mellitus (5) Melena Prognosis Plan Discharge planning is in progress to [facility] for IV antibiotics Maintained on Protonix 40 mg p.o. q.a.m. Carafate 1 g p.o. twice a day Avoid aspirin NSAIDs Outpatient follow up with GI Services to discuss and review need for repeat colonoscopy Dietary Evaluation Review Comments: 1) If patient remains NPO > 7 days, consider EN/TPN to meet at least 75% estimated daily needs 2) Advance to 60g CCHO cardiac diet when medically feasible 3) Follow-up with gastroenterology, cardiology, and nephrology 4) Continue to monitor I&O, labs, and skin integrity Expected Outcomes/Goals: 1) patient to receive nutritional support within 7 days of NPO status 2) labs to improve 3) diet to advance 4) f/u in 3-5 days Plan discussed with: Patient CC Plasma Assessment Blood Product Administration S: [id number] NEW MATTA MD Mar 18, 2025 21:23
== END 2025-03-18 13:30 | DRG 377 ==
LOC: ER 12:20 → OVERFLOW 20:33 → TELE-EAST 03-14 01:41
PROVIDERS: ADMIT Family Medicine; ATTEND Family Medicine
PROC: 30233N1 Transfusion of Nonautologous Red Blood Cells into Peripheral Vein, Percutaneous Approach (ICD-10-PCS; principal; 2025-03-11)
PROC: 0DB68ZX Excision of Stomach, Via Natural or Artificial Opening Endoscopic, Diagnostic (ICD-10-PCS; 2025-03-14)
PROC: 05HC33Z Insertion of Infusion Device into Left Basilic Vein, Percutaneous Approach (ICD-10-PCS; 2025-03-18)
PROC: B54NZZA Ultrasonography of Left Upper Extremity Veins, Guidance (ICD-10-PCS; 2025-03-18)
DX: K27.4 Chronic or unspecified peptic ulcer, site unspecified, with hemorrhage (principal); I50.23 Acute on chronic systolic (congestive) heart failure; J18.9 Pneumonia, unspecified organism; N17.0 Acute kidney failure with tubular necrosis; E87.1 Hypo-osmolality and hyponatremia; I13.0 Hypertensive heart and chronic kidney disease with heart failure and stage 1 through stage 4 chronic kidney disease, or unspecified chronic kidney disease; Z20.822 Contact with and (suspected) exposure to COVID-19; K20.91 Esophagitis, unspecified with bleeding; K31.7 Polyp of stomach and duodenum; D64.9 Anemia, unspecified; E11.65 Type 2 diabetes mellitus with hyperglycemia; E78.5 Hyperlipidemia, unspecified; K29.60 Other gastritis without bleeding; B86 Scabies; I25.10 Atherosclerotic heart disease of native coronary artery without angina pectoris; E11.22 Type 2 diabetes mellitus with diabetic chronic kidney disease; K52.9 Noninfective gastroenteritis and colitis, unspecified; E86.1 Hypovolemia; I05.2 Rheumatic mitral stenosis with insufficiency; K44.9 Diaphragmatic hernia without obstruction or gangrene; N18.32 Chronic kidney disease, stage 3b; Z88.6 Allergy status to analgesic agent; Z82.49 Family history of ischemic heart disease and other diseases of the circulatory system; Z83.3 Family history of diabetes mellitus; Z79.4 Long term (current) use of insulin
CPT/HCPCS: 36415; 43239; 71045; 74176; 76700; 80048; 80053; 80061; 80307; 81001; 82140; 82270; 82306; 82570; 82607; 82728; 82962; 83010; 83036; 83605; 83615; 83690; 83735; 83880; 83970; 84100; 84156; 84443; 84484; 85007; 85025; 85027; 85045; 85610; 85730; 86803; 86850; 86900; 86901; 86922; 87340; 87426; 87804; 93005; 94640; 97163; G0378; J1756; J2250; J2405; J2470

== ENCOUNTER 2025-05-14 06:01 | Emergency (ER) | payer MEDICARE, MEDICAID ==
[~2025-05-14] VITALS: Ht 167.6 cm; Wt 77.3 kg
--- NOTE | 2025-05-14 06:54 | ED.PDOC ---
Epistaxis- HPI HPI Comments 69 y/o F is [id number] for c/c epistaxis. Patient reports on sudden, unprovoked, and atraumatic onset at 0400, this morning. Bleeding has since resolved prior to EMS personnel arrival on scene. Patient is asymptomatic at this time. Pertinent history of anemia and HTN. Upon arrival to ED, patient had a blood pressure of 168/62. Chief Complaint: Nose Bleed Time Seen by MD: 06:10 Primary Care Provider: ROSARIO Reviewed Notes: Nurses Notes, Crusher Supervisor Notes, Medications, Allergies Allergies: Coded Allergies: Ibuprofen (Verified Allergy, Unknown, 10/03/23) Uncoded Allergies: Starfruit (Allergy, Severe, 01/02/25) Home Meds Active Scripts Ferrous Sulfate (Iron) 325 Mg Tab, 325 MG PO BID for 30 Days, #60 TAB 2 Refills Prov:OFE TORRES NP 01/04/25 Furosemide (Lasix) 40 Mg Tab, 40 MG PO BID for 30 Days, #60 TAB Prov:OFE TORRES NP 01/04/25 Carvedilol (COREG) 12.5 Mg Tab, 12.5 MG OR BID for 30 Days, #60 TAB 3 Refills Prov:OFE TORRES NP 01/04/25 Cefdinir (Cefdinir) 300 Mg Cap, 1 CAP PO BID for 7 Days, #14 CAP Prov:TERESA HERRMANN MD 07/09/24 Isosorbide Mononitrate (Isosorbide Mononitrate Er) 30 Mg Tab, 1 TAB PO DAILY for 30 Days, #30 TAB 5 Refills Prov:ALEJANDRO LEIGH RESIDENT 07/05/24 B-Complex W/ C & Folic Acid (Nephro-Rio) Tab, 1 TAB PO DAILY for 30 Days, #30 TAB 3 Refills Prov:KERA BOLTON MD 06/03/24 Metoprolol Succinate (Toprol Xl) 50 Mg Tab, 50 MG PO DAILY for 30 Days, #30 TAB 2 Refills Prov:KERA BOLTON MD 06/03/24 Furosemide (Lasix) 40 Mg Tab, 40 MG PO QAM for 30 Days, #30 TAB 3 Refills Prov:KERA BOLTON MD 06/03/24 Pantoprazole Sodium Sesquihydr (Pantoprazole Sodium) 40 Mg Tab, 40 MG PO DAILY for 30 Days, #30 TAB 2 Refills Prov:KERA BOLTON MD 06/03/24 Losartan Potassium (Losartan Potassium) 100 Mg Tab, 100 MG PO DAILY for 30 Days, #30 TAB 2 Refills Prov:KERA BOLTON MD 06/03/24 Empagliflozin (Jardiance) 10 Mg Tab, 10 MG PO DAILY for 30 Days, #30 TAB 2 Refills Prov:KERA BOLTON MD 06/03/24 Atorvastatin Calcium (ATORVASTATIN CALCIUM) 20 Mg Tab, 20 MG PO HS for 30 Days, #30 TAB 3 Refills Prov:KERA BOLTON MD 06/03/24 Ferrous Sulfate (Ferrous Sulfate) 325 Mg Tab, 1 TAB PO EVERY OTHER DAY for 30 Days, #15 TAB Prov:LIN MADRIGAL MD 02/28/24 Ergocalciferol (VITAMIN D 22901 UNIT) 50,[address] [place], [address] UNIT PO Q7D for 12 Days, #12 CAP Prov:MABEL GUZMAN MD 01/11/23 Empagliflozin (Jardiance) 10 Mg Tab, 10 MG PO QAM for 30 Days, #30 TAB Prov:MABEL GUZMAN MD 01/11/23 Reported Medications Sitagliptin Phosphate (Januvia) 50 Mg Tab, 1 TAB PO DAILY, #30 TAB 5 Refills 01/02/25 Hydralazine Hcl (Hydralazine Hcl) 50 Mg Tab, 100 MG PO BID 10/03/23 Furosemide (Furosemide) 40 Mg Tab, 1 TAB PO DAILY 10/03/23 Finerenone (Kerendia) 10 Mg Tab, 1 TAB PO DAILY 10/01/23 Metoprolol Succinate (Metoprolol Succinate Er) 100 Mg Tab, 1 TAB PO DAILY 10/01/23 Losartan Potassium (Losartan Potassium) 100 Mg Tab, 100 MG PO DAILY for 30 Days, MG 07/12/21 Information Source: Patient, Emergency Med Personnel Mode of Arrival: EMS Timing: Hours Duration: Minutes Prehospital treatment: 12 Lead EKG, Manager Environmental Affairs Past Medical History PAST MEDICAL HISTORY: Anemia, CAD, CHF, DM, High Lipids, HTN, UTI'S Surgical History: , Hernia Repair LATIN 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 History Family History Family History: No family hx of Cancer, No family hx of DM, Family hx of heart sean Social History Smoker: Non-Smoker Alcohol: Denies ETOH Use Drugs: Denies Drug Use Lives In: Home All Other Systems: Reviewed and Negative (As per HPI) Physical Exam General Appearance: No Apparent Distress, Normal HEENT: Normal ENT Inspection, Pharynx Normal, TMs Normal Neck: Full Range of Motion, Non-Tender, Normal, Normal Inspection Respiratory: Chest Non-Tender, Lungs Clear, No Accessory Muscle Use, No Respiratory Distress, Normal Breath Sounds Cardiovascular: No Edema, No JVD, No Murmur, No Gallop, Normal Peripheral Pulses, Regular Rate/Rhythm Breast Exam: Deferred Gastrointestinal: No Organomegaly, Non Tender, No Pulsatile Mass, Normal Bowel Sounds, Soft Genitalia: Deferred Pelvic: Deferred Rectal: Deferred Extremities: No calf tenderness, Normal capillary refill, Normal inspection, Normal range of motion, Non-tender, No pedal edema Musculoskeletal : Apperance: Normal Neurologic: Alert, hse coordinator II-XII nml as Tested, No Motor Deficits, Normal Affect, Normal Mood, No Sensory Deficits Cerebellar Function: Normal Reflexes: Normal Skin: Dry, Normal Color, Warm Lymphatic: No Adenopathy Was a procedure done? Was a procedure done?: No Differential Diagnosis (NSB) Differential Diagnosis: Anterior Nasal Bleed, Posterior Nasal Bleed, Hypertension, Coagulopathy X-Ray, Labs, Meds, VS Vital Signs Date Time Temp Pulse Resp B/P (MAP) Pulse Ox O2 Delivery O2 Flow Rate FiO2 05/14/25 06:10 97.7 66 16 168/62 98 97.7 05/14/25 06:07 59 Time of 1ST Reevaluation: 06:40 Reevaluation 1ST: Unchanged Patient Education/Counseling: Diagnosis, Treatment, Need For Follow Up Family Education/Counseling: No Family Present Additional Information Previous visits reviewed: May 24, 2024 and March 11, 2025 encounters for anemia Labs ordered and reviewed: N/A Images ordered and reviewed: N/A Additional personnel interviewed: N/A Departure 1 Departure Time of Disposition: 07:28 (Patient with a nosebleed that has resolved. We will discharge patient home with outpatient follow up) Impression: Primary Impression: Epistaxis Disposition: HOME / SELF CARE / HOMELESS Condition: Stable Discharged With: Self Critical Care Note Critical Care Time?: No Stability Stability form required: No Heart Score Heart Score: Heart Score Response (Comments) Value History N/A 0 EKG N/A 0 Age N/A 0 Risk Factors N/A 0 Troponin N/A 0 Total 0 I personally scribed for TERESA HERRMANN MD ([email or web address]) on 05/14/25 at 06:54. Electronically submitted by Varun Chris ([email or web address]). TERESA HERRMANN MD May 14, 2025 06:54
[2025-05-14 09:05] VITALS: BP 153/66; PULSE 64; RESP 18; TEMP 98.4; O2SAT 100
== END 2025-05-14 11:19 | disposition home or self-care (01) ==
LOC: EDBD 06:01 → ER 06:01 → EDUNIT# 06:01 → ER 11:19
DX: R04.0 Epistaxis (principal); I11.0 Hypertensive heart disease with heart failure; I50.9 Heart failure, unspecified; E11.9 Type 2 diabetes mellitus without complications; I25.10 Atherosclerotic heart disease of native coronary artery without angina pectoris; E78.5 Hyperlipidemia, unspecified; Z79.899 Other long term (current) drug therapy; Z98.890 Other specified postprocedural states; Z88.6 Allergy status to analgesic agent; Z87.440 Personal history of urinary (tract) infections; Z79.84 Long term (current) use of oral hypoglycemic drugs

== ENCOUNTER 2025-05-17 20:01 | Emergency (ER) | payer MEDICARE, MEDICAID ==
[~2025-05-17] VITALS: Ht 152.4 cm; Wt 76.4 kg
[2025-05-17 20:15] VITALS: BP 151/60; PULSE 18; RESP 98; TEMP 97.6; O2SAT 64
--- NOTE | 2025-05-17 20:26 | ED.PDOC ---
History of Present Illness HPI Comments 69 y/o F is BIBA from [facility] for abnormal labs. History of anemia secondary to frequent epistaxis and blood transfusions. Patient reports on being sent from her facility for blood transfusions after being found with a low Hgb count,, today, following routine lab work performed, last night. Patient denies any bl oody vomitus or stool production, weakness, lightheadedness, or further acute symptoms. Time Seen by MD: 20:10 Primary Care Provider: ROSARIO Reviewed Notes: Nurses Notes, Digital Strategist Senior Manager Notes, Medications, Allergies Allergies: Coded Allergies: Ibuprofen (Verified Allergy, Unknown, 10/03/23) Uncoded Allergies: Starfruit (Allergy, Severe, 01/02/25) Home Meds Active Scripts Ferrous Sulfate (Iron) 325 Mg Tab, 325 MG PO BID for 30 Days, #60 TAB 2 Refills Prov:OFE TORRES NP 01/04/25 Furosemide (Lasix) 40 Mg Tab, 40 MG PO BID for 30 Days, #60 TAB Prov:OFE TORRES NP 01/04/25 Carvedilol (COREG) 12.5 Mg Tab, 12.5 MG OR BID for 30 Days, #60 TAB 3 Refills Prov:OFE TORRES NP 01/04/25 Cefdinir (Cefdinir) 300 Mg Cap, 1 CAP PO BID for 7 Days, #14 CAP Prov:TERESA HERRMANN MD 07/09/24 Isosorbide Mononitrate (Isosorbide Mononitrate Er) 30 Mg Tab, 1 TAB PO DAILY for 30 Days, #30 TAB 5 Refills Prov:ALEJANDRO LEIGH RESIDENT 07/05/24 B-Complex W/ C & Folic Acid (Nephro-Rio) Tab, 1 TAB PO DAILY for 30 Days, #30 TAB 3 Refills Prov:KERA BOLTON MD 06/03/24 Metoprolol Succinate (Toprol Xl) 50 Mg Tab, 50 MG PO DAILY for 30 Days, #30 TAB 2 Refills Prov:KERA BOLTON MD 06/03/24 Furosemide (Lasix) 40 Mg Tab, 40 MG PO QAM for 30 Days, #30 TAB 3 Refills Prov:KERA BOLTON MD 06/03/24 Pantoprazole Sodium Sesquihydr (Pantoprazole Sodium) 40 Mg Tab, 40 MG PO DAILY for 30 Days, #30 TAB 2 Refills Prov:KERA BOLTON MD 06/03/24 Losartan Potassium (Losartan Potassium) 100 Mg Tab, 100 MG PO DAILY for 30 Days, #30 TAB 2 Refills Prov:KERA BOLTON MD 06/03/24 Empagliflozin (Jardiance) 10 Mg Tab, 10 MG PO DAILY for 30 Days, #30 TAB 2 Refills Prov:KERA BOLTON MD 06/03/24 Atorvastatin Calcium (ATORVASTATIN CALCIUM) 20 Mg Tab, 20 MG PO HS for 30 Days, #30 TAB 3 Refills Prov:KERA BOLTON MD 06/03/24 Ferrous Sulfate (Ferrous Sulfate) 325 Mg Tab, 1 TAB PO EVERY OTHER DAY for 30 Days, #15 TAB Prov:LIN MADRIGAL MD 02/28/24 Ergocalciferol (VITAMIN D 81050 UNIT) 50,000 [place], [address] UNIT PO Q7D for 12 Days, #12 CAP Prov:MABEL GUZMAN MD 01/11/23 Empagliflozin (Jardiance) 10 Mg Tab, 10 MG PO QAM for 30 Days, #30 TAB Prov:MABEL GUZMAN MD 01/11/23 Reported Medications Sitagliptin Phosphate (Januvia) 50 Mg Tab, 1 TAB PO DAILY, #30 TAB 5 Refills 01/02/25 Hydralazine Hcl (Hydralazine Hcl) 50 Mg Tab, 100 MG PO BID 10/03/23 Furosemide (Furosemide) 40 Mg Tab, 1 TAB PO DAILY 10/03/23 Finerenone (Kerendia) 10 Mg Tab, 1 TAB PO DAILY 10/01/23 Metoprolol Succinate (Metoprolol Succinate Er) 100 Mg Tab, 1 TAB PO DAILY 10/01/23 Losartan Potassium (Losartan Potassium) 100 Mg Tab, 100 MG PO DAILY for 30 Days, MG 07/12/21 Information Source: Patient, Emergency Med Personnel Mode of Arrival: EMS Severity: Moderate Timing: Hours Duration: Since onset Prehospital treatment: 12 Lead EKG, Biodiesel Engineering Manager Past Medical History PAST MEDICAL HISTORY: Anemia, CAD, CHF, DM, High Lipids, HTN, UTI'S Surgical History: , Hernia Repair 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 History Family History Family History: No family hx of Cancer, No family hx of DM, Family hx of heart sean Social History Smoker: Non-Smoker Alcohol: Denies ETOH Use Drugs: Denies Drug Use Lives In: Home All Other Systems: Reviewed and Negative (Comprehensive systems review obtained and negative except for what is stated in the HPI.) Physical Exam General Appearance: No Apparent Distress, Normal HEENT: Normal ENT Inspection, Pharynx Normal, TMs Normal Neck: Full Range of Motion, Non-Tender, Normal, Normal Inspection Respiratory: Chest Non-Tender, Lungs Clear, No Accessory Muscle Use, No Respiratory Distress, Normal Breath Sounds Cardiovascular: No Edema, No JVD, No Murmur, No Gallop, Normal Peripheral Pulses, Regular Rate/Rhythm Breast Exam: Deferred Gastrointestinal: No Organomegaly, Non Tender, No Pulsatile Mass, Normal Bowel Sounds, Soft Genitalia: Deferred Pelvic: Deferred Rectal: Deferred Extremities: No calf tenderness, Normal capillary refill, Normal inspection, Normal range of motion, Non-tender, No pedal edema Musculoskeletal : Apperance: Normal Neurologic: Alert, green building architect II-XII nml as Tested, No Motor Deficits, Normal Affect, Normal Mood, No Sensory Deficits Cerebellar Function: Normal Reflexes: Normal Skin: Dry, Normal Color, Warm Lymphatic: No Adenopathy Was a procedure done? Was a procedure done?: No Differential Dx Considerations may include: anemia X-Ray, Labs, Meds, VS Vital Signs Date Time Temp Pulse Resp B/P (MAP) Pulse Ox O2 Delivery O2 Flow Rate FiO2 05/17/25 20:06 97.6 64 18 151/60 98 97.6 Lab Test 05/17/25 20:42 Range/Units White Blood Count 6.0 4.4-10.8 10^3/uL Red Blood Count 2.58 L 4.0-5.20 10^6/uL Hemoglobin 7.2 L 12.2-16.2 g/dL Hematocrit 22.1 L 36.0-46.0 % Mean Corpuscular Volume 86.0 80.0-100.0 fL Mean Corpuscular Hemoglobin 27.9 L 28.0-32.0 pg Mean Corpuscular Hemoglobin Concent 32.4 32.0-36.0 g/dL Red Cell Distribution Width 20.5 H 11.8-14.3 % Platelet Count 290 140-450 10^3/uL Mean Platelet Volume 6.3 L 6.9-10.8 fL Neutrophils (%) (Auto) 72.1 37.0-80.0 % Lymphocytes (%) (Auto) 11.6 10.0-50.0 % Monocytes (%) (Auto) 9.1 0.0-12.0 % Eosinophils (%) (Auto) 5.9 0.0-7.0 % Basophils (%) (Auto) 1.3 0.0-2.0 % Neutrophils # (Auto) 4.3 1.6-8.6 10 ^3/uL Lymphocytes # (Auto) 0.7 0.4-5.4 10 ^3/uL Monocytes # (Auto) 0.5 0-1.3 10 ^3/uL Eosinophils # (Auto) 0.4 0-0.8 10 ^3/uL Basophils # (Auto) 0.1 0-0.2 10 ^3/uL Nucleated Red Blood Cells 0.1 % Prothrombin Time 10.9 9.3-11.8 sec Prothrombin Time INR 1.03 0.9-1.15 Sodium Level 129 L 136-145 mmol/L Potassium Level 4.0 3.5-5.1 mmol/L Chloride Level 100 98-107 mmol/L Carbon Dioxide Level 22 20-31 mmol/L Anion Gap 7 5-15 Blood Urea Nitrogen 35 H 9-23 mg/dL Creatinine 2.22 H 0.550-1.02 mg/dL Glomerular Filtration Rate Calc 23 >90 mL/min BUN/Creatinine Ratio 15.8 10.0-20.0 Serum Glucose 143 H 74-106 mg/dL Calcium Level 8.7 8.7-10.4 mg/dL X-Ray, Labs, Meds, VS Comment Patient's hemoglobin returned at 7.2, patient is asymptomatic, patient will be discharged home and advised to follow up with the PCP Time of 1ST Reevaluation: 20:40 Reevaluation 1ST: Unchanged Patient Education/Counseling: Diagnosis, Treatment, Need For Follow Up (Follow up with the PCP in next available appointment.) Family Education/Counseling: No Family Present SEPSIS Sepsis Screen Physician Orders Type And Screen (05/17/25 20:14) Vital Signs Date Time Temp Pulse Resp B/P (MAP) Pulse Ox O2 Delivery O2 Flow Rate FiO2 05/17/25 20:06 97.6 64 18 151/60 98 97.6 Laboratory Tests Test 05/17/25 20:42 White Blood Count 6.0 10^3/uL (4.4-10.8) Departure 1 Departure Time of Disposition: 22:22 Impression: Primary Impression: Chronic kidney disease, unspecified Qualified Codes: N18.32 - Chronic kidney disease, stage 3b Additional Impressions: Anemia Qualified Codes: 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 Electronically submitted by Varun Chris [email or web address]). MARYSE GANT May 17, 2025 20:26
[2025-05-17 21:31] LABS: Mean Corpuscular Hemoglobin 27.9 pg (28.0-32.0); Nucleated Red Blood Cells % 0.1 %
[2025-05-17 21:37] LABS: Chloride 100 mmol/L (98-107); Potassium 4.0 mmol/L (3.5-5.1)
[2025-05-17 21:38] LABS: Anion Gap 7 (5-15); Carbon Dioxide 22 mmol/L (20-31)
[2025-05-17 21:43] LABS: BUN/Creatinine Ratio 15.8 (10.0-20.0)
[2025-05-17 21:49] LABS: INR 1.03 (0.9-1.15); Prothrombin Time 10.9 sec (9.3-11.8)
[2025-05-17 22:02] LABS: Blood Urea Nitrogen 35 mg/dL (9-23); Calcium 8.7 mg/dL (8.7-10.4); Glucose 143 mg/dL (74-106); Sodium 129 mmol/L (136-145)
[2025-05-17 22:05] LABS: Hematocrit 22.1 % (36.0-46.0); Hemoglobin 7.2 g/dL (12.2-16.2); Mean Corpuscular Volume 86.0 fL (80.0-100.0)
== END 2025-05-17 22:47 | disposition home or self-care (01) ==
LOC: EDBD 20:01 → ER 20:01
DX: I13.0 Hypertensive heart and chronic kidney disease with heart failure and stage 1 through stage 4 chronic kidney disease, or unspecified chronic kidney disease (principal); N18.32 Chronic kidney disease, stage 3b; D50.0 Iron deficiency anemia secondary to blood loss (chronic); R04.0 Epistaxis; E11.22 Type 2 diabetes mellitus with diabetic chronic kidney disease; I25.10 Atherosclerotic heart disease of native coronary artery without angina pectoris; Z88.6 Allergy status to analgesic agent; Z98.890 Other specified postprocedural states; Z79.899 Other long term (current) drug therapy
CPT/HCPCS: 36415; 80048; 85025; 85610; 86850; 86900; 86901